=== PATIENT | male | born 1955 | race Caucasian/White ===

== ENCOUNTER 2023-04-29 07:49 | Outpatient (OUT) | payer OTHER, SELFPAY ==
[2023-04-29 07:43] LABS: Basophils Absolute Auto 0.1 10^3/uL (0.0-0.1); Basophils Percent Auto 0.7 % (0.2-2.0); Eosinophils Absolute Auto 0.2 10^3/uL (0.0-0.7); Eosinophils Percent Auto 2.7 % (0.9-7.0); Hematocrit 41.8 % (42.0-54.0); Hemoglobin 13.9 g/dL (14.0-18.0); Immature Granulocytes Abs Auto 0.02 10^3/uL (0.00-0.03); Immature Granulocytes Pct Auto 0.2 % (0.0-0.5); Lymphocytes Absolute Auto 2.5 10^3/uL (1.2-3.8); Lymphocytes Percent Auto 28.6 % (20.5-60.0); Mean Corpuscular HGB Conc 33.3 g/dL (29.9-35.2); Mean Corpuscular Hemoglobin 31.9 pg (25.9-34.0); Mean Corpuscular Volume 95.9 fL (80.0-94.0); Mean Platelet Volume 8.8 fL (9.5-13.5); Monocytes Absolute Auto 0.8 10^3/uL (0.3-0.8); Neutrophils Absolute Auto 5.1 10^3/uL (1.4-6.5); Neutrophils Percent Auto 58.8 % (43.0-75.0); Platelet Count 279 10^3/uL (150-450); Red Blood Count 4.36 10^6/uL (4.70-6.10); Red Cell Distribution Width 14.3 % (11.0-15.0); White Blood Count 8.7 10^3/uL (4.0-11.0)
[2023-04-29 08:40] LABS: Bilirubin Urine NEGATIVE (NEGATIVE); Blood Urine NEGATIVE (NEGATIVE); Clarity Urine CLEAR (CLEAR); Color Urine YELLOW (YELLOW); Glucose Urine UA NEGATIVE (NEGATIVE); Ketones Urine NEGATIVE (NEGATIVE); Leukocyte Esterase Urine NEGATIVE (NEGATIVE); Nitrite Urine NEGATIVE (NEGATIVE); Protein Urine NEGATIVE (NEG/TRACE); Specific Gravity Urine >=1.030 (1.005-1.025); Urobilinogen Urine 0.2 EU/dL (0.2-1.0)
[2023-04-29 08:47] LABS: WBC Urine NONE SEEN #/HPF (NONE SEEN)
[2023-04-29 08:48] LABS: Bacteria Urine NONE SEEN #/HPF (NONE SEEN); Mucus Urine NONE SEEN (NONE SEEN); RBC Urine NONE SEEN #/HPF (0-2); Squamous Epithelial Cell Urine RARE #/LPF (NONE/RARE)
[2023-04-29 09:35] LABS: Alanine Aminotransferase 26 U/L (16-63); Albumin Globulin Ratio 1.1; Albumin Level 3.9 g/dL (3.4-5.0); Alkaline Phosphatase 34 U/L (46-116); Anion Gap 10.2; Aspartate Amino Transferase 18 U/L (15-37); BUN Creatinine Ratio 17.5; Bilirubin Total 0.4 mg/dL (0.2-1.0); Calcium 9.4 mg/dL (8.5-10.1); Carbon Dioxide 29.6 mmol/L (21.0-32.0); Chloride 107 mmol/L (98-107); Chol HDL Ratio 3.4; Cholesterol 117 mg/dL (<=200); Estimated GFR (African America >60 (>=60); Estimated GFR (Non-African Ame >60 (>=60); Globulin 3.6 g/dL; Glucose 110 mg/dL (74-106); HDL Cholesterol 34 mg/dL (40-60); Potassium 4.8 mmol/L (3.5-5.1); Sodium 142 mmol/L (136-145); Total Protein 7.5 g/dL (6.4-8.2); Triglycerides 108 mg/dL (<=150); VLDL CHOLESTEROL 21.6 mg/dL
[2023-04-29 09:46] LABS: Estimated Average Glucose 120 mg/dL; Glycohemoglobin A1C 5.8 % (4.5-6.2)
[2023-04-29 10:09] LABS: Prostate Specific Antigen Scrn 0.47 ng/mL (<=4.00)
== END 2023-04-29 07:50 | disposition home or self-care (01) ==
PROVIDERS: PCP Nurse Practitioner; Visit Provider Nurse Practitioner
DX: E11.9 Type 2 diabetes mellitus without complications (principal); E78.2 Mixed hyperlipidemia; Z12.5 Encounter for screening for malignant neoplasm of prostate
CPT/HCPCS: 36415; 80053; 80061; 81001; 82043; 83036; 85025; G0103

== ENCOUNTER 2023-12-16 07:24 | Outpatient (OUT) | payer OTHER, SELFPAY ==
[2023-12-16 08:19] LABS: Anion Gap 14.6; BUN Creatinine Ratio 14.4; Carbon Dioxide 24.7 mmol/L (21.0-32.0); Chloride 105 mmol/L (98-107); Estimated GFR (African America >60 (>=60); Estimated GFR (Non-African Ame >60 (>=60); Glucose 111 mg/dL (74-106); Potassium 4.3 mmol/L (3.5-5.1); Sodium 140 mmol/L (136-145)
[2023-12-16 08:37] LABS: Estimated Average Glucose 117 mg/dL; Glycohemoglobin A1C 5.7 % (4.5-6.2)
== END 2023-12-16 07:25 | disposition home or self-care (01) ==
PROVIDERS: PCP Nurse Practitioner; Visit Provider Nurse Practitioner
DX: E11.9 Type 2 diabetes mellitus without complications (principal); I10 Essential (primary) hypertension
CPT/HCPCS: 36415; 80048; 83036

== ENCOUNTER 2023-12-23 07:33 | Outpatient (OUT) | payer OTHER, SELFPAY ==
--- NOTE | 2023-12-23 | CT_ITS ---
[address] [address] Patient Name: HAKEEM STARK MRN: [id number] date: 1955 Sex: M Assigned Patient Location: CT Current Patient Location: Accession/Order Number: [id number] Exam Date: 12/23/2023 07:58 Report Date: 12/25/2023 08:27 At the request of: DANN DAVISON Procedure: CT lung screening low-dose EXAMINATION: CT lung screening low-dose HISTORY: [employer] USER COMPARISON: No relevant comparison available. TECHNIQUE: Axial, Coronal, and Sagittal images were created without the administration of IV contrast material. Dose reduction techniques were achieved by using automated exposure control and/or adjustment of mA and/or kV according to patient size and/or use of iterative reconstruction technique. FINDINGS: LUNGS: Mild paraseptal emphysema with an upper lobe predominance. Scattered pulmonary nodules the largest nodule measures 1.5 x 0.6 cm in the right lower lobe marginating the major fissure best seen on axial image #86. PLEURA: No mass, effusion, or pneumothorax. VASCULATURE: No abnormality. AMADOR: No mass or pathologic adenopathy. MEDIASTINUM: No mass or pathologic adenopathy. CARDIAC: No enlargement, pericardial thickening, or significant calcification. CORONARY ARTERIES: Coronary calcifications are moderate. AORTA: No aortic aneurysm. Moderate calcific atherosclerosis CHEST WALL: No mass or axillary adenopathy BONES: No bone lesion or fracture. LIMITED ABDOMEN: No suspicious findings. Limited images of the upper abdomen. OTHER: Negative. CT/CT lung screening low-dose IMPRESSION: Scattered pulmonary nodules the largest measuring 1.5 x 0.6 cm in right lower lobe. PET scan follow-up is recommended to evaluate metabolic status LUNG SCREENING: Lung-RADS Category 4A- Suspicious. Findings for which additional diagnostic testing and/ or tissue sampling is recommended. 3 month LDCT; PET/CT may be used when there is a >= 8 mm solid component. Electronically authenticated by: YAIMA NOONAN Date: 12/25/2023 08:27
--- OUTSIDE RECORDS SUMMARY | 2023-12-23 07:36 | XMS_ITS | CCD ---
Author Name Unknown Address [address] [place] [address] Organization [facility] Care Team Providers Care Blending Kettle Tender Name Role Phone DANN DAVISON Primary Care Physician DANN DAVISON Referring UnavailMD Aravind Voss Attending Unavailable MD rAavind SU Admitting Unavailable MD Aravind SU Referring Unavailable MD Aravind SU Attending Unavailable MD Aravind SU Attending Unavailable AICHHOLZ, OIL FIELD LABORER DANN Admitting Unavailable AICHHOLZ, OIL FIELD LABORER DANN Attending Unavailable AICHHOLZ, OIL FIELD LABORER DANN Primary Care Unavailable AICHHOLZ, OIL FIELD LABORER DANN Consulting Unavailable AICHHOLZ, OIL FIELD LABORER DANN Admitting Unavailable AICHHOLZ, OIL FIELD LABORER DANN Attending Unavailable AICHHOLZ, OIL FIELD LABORER DANN Primary Care Unavailable AICHHOLZ, OIL FIELD LABORER DANN Consulting Unavailable PATRICK VAZQUEZ Consulting Unavailable AICHHOLZ, OIL FIELD LABORER DANN Admitting Unavailable AICHHOLZ, OIL FIELD LABORER DANN Attending Unavailable AICHHOLZ, OIL FIELD LABORER DANN Primary Care Unavailable SU ., DR BALDERRAMA Admitting Unavailable SU ., DR BALDERRAMA Attending Unavailable AICHHOLZ, OIL FIELD LABORER DANN Primary Care Unavailable SU ., DR BALDERRAMA Consulting Unavailable MARSHA SAAB Consulting Unavailable SU ., DR BALDERRAMA Admitting Unavailable SU ., DR BALDERRAMA Attending Unavailable AICHHOLZ, OIL FIELD LABORER DANN Primary Care Unavailable SU ., DR BALDERRAMA Consulting Unavailable STURGIS, DR YAIMA Hughes Consulting Unavailable LAURA NEGRON Consulting Unavailable SARTHAK KAUFMAN Admitting Unavailable SARTHAK KAUFMAN Attending Unavailable AICHHOLZ, OIL FIELD LABORER DANN Primary Care Unavailable SARTHAK KAUFMAN Consulting Unavailable OFELIA BOONE Consulting Unavailable CARIDAD MILLER Consulting Unavailable Medications Current Medications Medication Drug Class(es) Dates Sig (Normalized) Sig (Original) aspirin 81 mg oral tablet (1 source) Platelet Aggregation Inhibitor, Nonsteroidal Anti-inflammatory Drug Start: 01-17-2022 take 1 tablet by mouth once daily Aspirin 81 mg Tab-EC 81 mg, Oral, Daily, Refills(s) 0, Blood Thinner Start Date: 01/17/22 Status: Ordered atorvastatin 80 mg oral tablet (1 source) HMG-CoA Reductase Inhibitor Start: 01-17-2022 take 1 tablet by mouth once daily atorvastatin 80 mg Tab 80 mg, Oral, Daily, Refills(s) 0, High cholesterol Start Date: 01/17/22 Status: Ordered lisinopril 10 mg oral tablet (1 source) Angiotensin Converting Enzyme Inhibitor Start: 01-17-2022 take 1 tablet by mouth once daily lisinopril 10 mg Tab 10 mg, Oral, Daily, Refills(s) 0, High blood pressure Start Date: 01/17/22 Status: Ordered meloxicam 15 mg oral tablet (1 source) Nonsteroidal Anti-inflammatory Drug Start: 01-17-2022 meloxicam 15 mg oral tablet 200 mg, Oral, Daily, Refills(s) 0, Arthritis Start Date: 01/17/22 Status: Ordered 24 hr metFORMIN hydrochloride 750 mg extended release oral tablet (1 source) Biguanide Start: 01-17-2022 take 1 tablet by mouth twice daily metformin 750 mg ER Tab 750 mg, Oral, BID, Refills(s) 0, High blood sugar Start Date: 01/17/22 Status: Ordered tamsulosin hydrochloride 0.4 mg oral capsule (1 source) alpha-Adrenergic Antonia Start: 01-17-2022 take 1 capsule by mouth once daily tamsulosin 0.4 mg Cap 0.4 mg = 1 cap(s), Oral, Daily, # 30 cap(s), Refills(s) 8, Pharmacy: [id number], 180, cm, 01/17/22 9:28:00 EDT, Height/Length Dosing, 112, kg, 01/17/22 9:28:00 EDT, Weight Dosing Start Date: 01/17/22 Status: Ordered Problems Active Problems Problem Classification Problem Date Documented Date Episodic/Chronic Diabetes mellitus without complication (6 sources) Type 2 diabetes mellitus; 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: [Type 2 diabetes mellitus without complications] Onset: 11-05-2022 01-17-2022 Chronic Disorders of lipid metabolism (2 sources) Mixed hyperlipidemia; 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: [Mixed hyperlipidemia] Onset: 03-22-2022 01-17-2022 Chronic Essential hypertension (6 sources) Essential hypertension; 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: [Essential (primary) hypertension] Onset: 03-01-2022 01-17-2022 Chronic Osteoarthritis (1 source) Arthritis 02-24-2022 Chronic Other aftercare (1 source) residential (current) use of oral hypoglycemic drugs; 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: [SKILLED NURSING USE ORAL HYPOGLYCEMIC DX] Onset: 12-06-2022 Episodic Other and unspecified benign neoplasm (1 source) Personal history of colonic polyps; 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: [PERSONAL HISTORY OF COLONIC POLYPS] Onset: 12-06-2022 Episodic Other screening for suspected conditions (not mental disorders or infectious disease) (5 sources) Encounter for screening for malignant neoplasm of colon; 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: [Encounter for screening for malignant neoplasm of prostate] Onset: 03-22-2022 Episodic Spondylosis; intervertebral disc disorders; other back problems (1 source) Degeneration of lumbar intervertebral disc 02-24-2022 Chronic Substance-related disorders (2 sources) Smoker; 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: [Nicotine dependence, cigarettes, uncomplicated] Onset: 12-06-2022 01-17-2022 Chronic Comment on above: Added secondary to d ocumentation in Social History. Past or Other Problems Problem Classification Problem Date Documented Da te Episodic/Chronic Calculus of urinary tract (6 sources) Kidney stone; 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: [Calculus of kidney] Onset: 02-24-2022 02-24-2022 Episodic Other aftercare (1 source) emt intermediate (current) use of anticoagulants; 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: [MOID [employer] CURRNT USE ANTICOAGULANTS] Onset: 03-01-2022 Episodic Residual codes; unclassified (1 source) Procedure and treatment not carried out for other reasons; 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: [PROC AND TX NOT CARRIED OUT OTH REASONS] Onset: 03-01-2022 Episodic Results Test Name Value Interpretation Reference Range Facility CT LUNG CANCER SCREENINGon 0 11-05-[address] Low Dose Lung Cancer Screening History: Screening for lung cancer, smoking. Current smoker Comparison: None Technique: Helical acquisition Low dose CT chest. Images reviewed in lung, soft tissue and bone windows. Findings: [All follow up of nodules are based on ACR guidelines for lung cancer screening and measurements of each nodule size must be the mean of the longest 2 axial plane perpendiculars] Nodules: Mild centrilobular and paraseptal emphysema. Minimal, patchy nodular groundglass density in the posterior right upper lobe, is likely infectious/inflammat ory. Intrapulmonary lymph node in the right major fissure on series 4 image 77. No suspicious nodules by size criteria. Normal size thoracic aorta, pulmonary artery, and heart. There is moderate coronary calcification. No suspicious lymphadenopathy. Upper abdomen: Limited Bones: No acute or suspicious lesion Impression: 1. ACR Assessment Category: Lung-RADS Category 2. Benign appearance or behavior. . Recommendation: Lung-RADS Category 2. Benign appearance or behavior. Recommendation: continue annual screening. . 2. Significant Incidental Finding(s): Category S: Yes. a. coronary artery calcium moderate 3. Prior history of Lung cancer: Category C: no. 4. Avoidance of tobacco smoke is strongly advised. Please consider referral for smoking cessation to [facility] Medication Therapy Management (MTM) if clinically appropriate. Download the LungRADS Assessment Categories table at this site: http://www.acr.org/Q uality-Safety/Resour mony/LungRADS Regarding coronary artery calcium, there is a growing consensus that reports for nongated low dose chest CT should include assessment of coronary artery calcium. A simple visual assessment, mild, moderate, or heavy coronary artery calcium is comparable to a Agatston scoring and strongly associated with outcomes ( related to coronary artery disease and all cause mortality). Mild is defined as isolated flecks in the coronary distribution (Agatston score <100). Heavy implies continuous or lengthy coronary artery calcium (Agatston score >1000). Moderate is for patients falling between these two extremes (Agatston score 101-1000). https://pubs.rsna.or g/doi/abs/10.1148/ra diol.61193331 Electronically authenticated by: PATRICK VAZQUEZ Date: 2022-11-05 20:06 Normal [facility] GLYCOHEMOGLOBIN A1Con 2022 ADA RECOMMENDATION SEE BELOW Normal [facility] Comment on above: Result Comment: ADA RECOMMENDED LIMIT 4.0 - 6.0 ADA THERAPEUTIC TARGET < 7.0 ACTION SUGGESTED > 7.0 Performed By: #### A 1C #### [facility] [address] [address] [address] Gigi To Glucose [Mass/Vol] 117 mg/dL Normal [facility] Comment on above: Performed By: #### A 1C #### [facility] [address] [place] [address] Dr. Gigi To HbA1c (Bld) [Mass fraction] 5.7 % Normal 4.5-6.2 [facility] Comment on above: Performed By: #### A 1C #### [facility] [address] [place] [address] Dr. Gigi To PROF CHEM 8 (BAS METB)on Anion gap [Moles/Vol] 16.1 mmol/L Normal [facility] Comment on above: Performed By: #### B MP #### [facility] [address] [place] [address] Dr. Gigi To Calcium [Mass/Vol] 9.4 mg/dL Normal 8.5-10.1 [facility] Comment on above: Performed By: #### B MP #### [facility] [address] [place] [address] Dr. Gigi To Chloride [Moles/Vol] 105 mmol/L Normal 98-107 [facility] Comment on above: Performed By: #### B MP #### [facility] [address] [place] [address] Dr. Gigi To CO2 [Moles/Vol] 25.8 mmol/L Normal 21.0-32.0 [facility] Comment on above: Performed By: #### B MP #### [facility] [address] [place] [address] Dr. Gigi To Creatinine [Mass/Vol] 1.02 mg/dL Normal 0.70-1.[address] [facility] Comment on above: Performed By: #### B MP #### [facility] [address] [place] [address] Dr. Gigi To EGFR-AF TAIWANESE >60 Normal >=[address] [facility] Comment on above: Performed By: #### B MP #### [facility] [address] [place] [address] Dr. Gigi To EGFR-NON AF TAIWANESE >60 Normal >=60 [facility] Comment on above: Performed By: #### B MP #### [facility] [address] [address] [address] Gigi To Glucose [Mass/Vol] 109 mg/dL Critically high 74-106 [facility] Comment on above: Performed By: #### B MP #### [facility] [address] [address] [address] Gigi To Potassium [Moles/Vol] 4.9 mmol/L Normal 3.5-5.1 [facility] Comment on above: Performed By: #### B MP #### [facility] [address] [address] [address] Gigi To Sodium [Moles/Vol] 142 mmol/L Normal 136-145 [facility] Comment on above: Performed By: #### B MP #### [facility] [address] [address] [address] Gigi To Urea nitrogen [Mass/Vol] 25.0 mg/dL Critically high 7.0-18.0 [facility] Comment on above: Performed By: #### B MP #### [facility] [address] [address] [address] Gigi To Urea nitrogen/Creatinine [Mass ratio] 24.5 mg/mg Normal [facility] Comment on above: Performed By: #### B MP #### [facility] [address] [address] [address] Gigi To [facility] August 08, 2022 HAKEEM STARK [address] [place] [address] Dear Mr. Hakeem Stark, Our records show it is time for you to schedule a follow up appointment with Dr. Su due to your history of Kidney stones. I have enclosed an order for a KUB x-ray to be done prior to the appointment. Please call our office so we can get you scheduled for an appointment, and so we can continue to provide you with quality care. Thank you for your consideration in this matter. Sincerely, Aravind Su M.D., F.A.C.S. [facility] [address] [place] [address] [id number] Normal [facility] H&P Updateon 05-23-2022 H&P Update [id number] 6#[id number]:127 Normal [facility] Pre-Certification Formon Pre-Certification Form [id number] #1.00CD:127 Normal [facility] CBC AUTO DIFFon 03-19-2022 BASO # 0.1 103/ul Normal 0.0-0.1 [facility] Comment on above: Performed By: #### C BC #### [facility] [address] [place] [address] Dr. Gigi To Basophils/100 WBC (Bld) 0.5 % Normal 0.2-2.0 [facility] Comment on above: Performed By: #### C BC #### [facility] [address] [place] [address] Dr. Gigi To EO # 0.3 103/ul Normal 0.0-0.7 [facility] Comment on above: Performed By: #### C BC #### [facility] [address] [place] [address] Dr. Gigi To Eosinophils/100 WBC (Bld) 2.7 % Normal 0.9-7.0 [facility] Comment on above: Performed By: #### C BC #### [facility] [address] [place] [address] Dr. Gigi To Erythrocyte distribution width (RBC) [Ratio] 14.0 % Normal 11.0-15.0 [facility] Comment on above: Performed By: #### C BC #### [facility] [address] [place] [address] Dr. Gigi To Hematocrit (Bld) [Volume fraction] 43.7 % Normal 42.0-54.0 [facility] Comment on above: Performed By: #### C BC #### [facility] [address] [place] [address] Dr. Gigi To Hemoglobin (Bld) [Mass/Vol] 14.4 g/dL Normal 14.0-18.[address] [facility] Comment on above: Performed By: #### C BC #### [facility] [address] [place] [address] Dr. Gigi To IG # 0.03 10e3/ul Normal 0.00-0.[address] [facility] Comment on above: Performed By: #### C BC #### [facility] [address] [place] [address] Dr. Gigi To IG % 0.3 % Normal 0.0-0.5 [facility] Comment on above: Performed By: #### C BC #### [facility] [address] [place] [address] Dr. Gigi To LYMPH # 2.9 103/ul Normal 1.2-3.[address] [facility] Comment on above: Performed By: #### C BC #### [facility] [address] [place] [address] Dr. Gigi To Lymphocytes/100 WBC (Bld) 29.4 % Normal 20.5-60.[address] [facility] Comment on above: Performed By: #### C BC #### [facility] [address] [place] [address] Dr. Gigi To MANUAL DIFF REQ NO Normal [facility] Comment on above: Performed By: #### C BC #### [facility] [address] [place] [address] Dr. Gigi To MCH (RBC) [Entitic mass] 32.2 pg Normal 25.9-34.[address] [facility] Comment on above: Performed By: #### C BC #### [facility] [address] [place] [address] Dr. Gigi To MCHC (RBC) [Mass/Vol] 33.0 g/dL Normal 29.9-35.[address] [facility] Comment on above: Performed By: #### C BC #### [facility] [address] [place] [address] Dr. Gigi To MCV (RBC) [Entitic vol] 97.8 fL Critically high 80.0-94.0 [facility] Comment on above: Performed By: #### C BC #### [facility] [address] [address] [address] Gigi To MONO # 0.8 103/ul Normal 0.3-0.8 [facility] Comment on above: Performed By: #### C BC #### [facility] [address] [address] [address] Gigi To Monocytes/100 WBC (Bld) 8.6 % Normal 1.7-12.0 [facility] Comment on above: Performed By: #### C BC #### [facility] [address] [place] [address] Dr. Gigi To NEUT # 5.7 103/ul Normal 1.4-6.5 [facility] Comment on above: Performed By: #### C BC #### [facility] [address] [place] [address] Dr. Gigi To Neutrophils/100 WBC (Bld) 58.5 % Normal 43.0-75.0 [facility] Comment on above: Performed By: #### C BC #### [facility] [address] [place] [address] Dr. Gigi To Platelet mean volume (Bld) [Entitic vol] 8.7 fL Critically low 9.5-13.[address] [facility] Comment on above: Performed By: #### C BC #### [facility] [address] [place] [address] Dr. Gigi To PLT 280 103/ul Normal 150-[address] [facility] Comment on above: Performed By: #### C BC #### [facility] [address] [place], [place] [id number] Dr. Gigi To RBC 4.47 106/ul Critically low 4.70-6.10 [facility] Comment on above: Performed By: #### C BC #### [facility] [address] [address] [address] Gigi To WBC 9.8 103/ul Normal 4.0-11.0 [facility] Comment on above: Performed By: #### C BC #### [facility] [address] [address] [address] Gigi To GLYCOHEMOGLOBIN A1Con 2021 ADA RECOMMENDATION SEE BELOW Normal [facility] Comment on above: Result Comment: ADA RECOMMENDED LIMIT 4.0 - 6.0 ADA THERAPEUTIC TARGET < 7.0 ACTION SUGGESTED > 7.0 Performed By: #### A 1C #### [facility] [address] [address] [address] Gigi To Glucose [Mass/Vol] 126 mg/dL Normal [facility] Comment on above: Performed By: #### A 1C #### [facility] [address] [place] [address] Dr. Gigi To HbA1c (Bld) [Mass fraction] 6.0 % Normal 4.5-6.2 [facility] Comment on above: Performed By: #### A 1C #### [facility] [address] [place] [address] Dr. Gigi To LIPID PROFILEon 03-19-2022 CHOL-HDL RATIO NORM SEE BELOW Normal [facility] Comment on above: Result Comment: 3.3 - 4.4 LOW RISK 4.4 - 7.1 AVERAGE RISK 7.1 - 11.0 MODERATE RISK >11.0 HIGH RISK Performed By: #### L IPID, CMP #### [facility] [address] [place] [address] Dr. Gigi To Cholesterol [Mass/Vol] 105 mg/dL Normal <=200 [facility] Comment on above: Performed By: #### L IPID, CMP #### [facility] [address] [address] [address] Gigi To Cholesterol in HDL [Mass/Vol] 29 mg/dL Critically low 40-60 [facility] Comment on above: Performed By: #### L IPID, CMP #### [facility] [address] [place] [address] Dr. Gigi To Cholesterol in LDL [Mass/Vol] 26.8 mg/dL Normal [facility] Comment on above: Performed By: #### L IPID, CMP #### [facility] [address] [address] [address] Gigi To Cholesterol.total/Ch olesterol in HDL [Mass ratio] 3.6 {ratio} Normal [facility] Comment on above: Performed By: #### L IPID, CMP #### [facility] [address] [address] [address] Gigi To HDL NORMAL > or = 60 mg/dl - LOW CARDIOVASCULAR RISK <40 mg/dl - HIGH CARDIOVASCULAR RISK Normal [facility] Comment on above: Performed By: #### L IPID, CMP #### [facility] [address] [address] [address] Gigi To LDL CALC NORMAL SEE BELOW Normal [facility] Comment on above: Result Comment: <100 mg/dl OPTIMAL 100 - 129 mg/dl NEAR OR ABOVE OPTIMAL 130 - 159 mg/dl BORDERLINE HIGH 160 - 189 mg/dl HIGH >190 mg/dl VERY HIGH Performed By: #### L IPID, CMP #### [facility] [address] [place] [address] Dr. Gigi To Triglyceride [Mass/Vol] 246 mg/dL Critically high <=150 [facility] Comment on above: Performed By: #### L IPID, CMP #### [facility] [address] [place] [address] Dr. Gigi To VLDL CALC 49.2 mg/dL Normal [facility] Comment on above: Performed By: #### L IPID, CMP #### [facility] [address] [address] [address] Gigi To MICROALBUMIN, RAND URon 06- mALB 1.5 mg/L Normal <=30.0 [facility] Comment on above: Performed By: #### M ALBR #### [facility] [address] [place] [address] Dr. Gigi To PROF 14(COMP METB)on 022 Albumin [Mass/Vol] 3.9 g/dL Normal 3.4-5.0 [facility] Comment on above: Performed By: #### L IPID, CMP #### [facility] [address] [address] [address] Gigi To Albumin/Globulin [Mass ratio] 1.1 {ratio} Normal [facility] Comment on above: Performed By: #### L IPID, CMP #### [facility] [address] [address] [address] Gigi To ALP [Catalytic activity/Vol] 42 U/L Critically low 46-116 [facility] Comment on above: Performed By: #### L IPID, CMP #### [facility] [address] [address] [address] Gigi To ALT [Catalytic activity/Vol] 30 U/L Normal 16-63 [facility] Comment on above: Performed By: #### L IPID, CMP #### [facility] [address] [address] [address] Gigi To Anion gap [Moles/Vol] 14.5 mmol/L Normal [facility] Comment on above: Performed By: #### L IPID, CMP #### [facility] [address] [address] [address] Gigi To AST [Catalytic activity/Vol] 17 U/L Normal 15-37 [facility] Comment on above: Performed By: #### L IPID, CMP #### [facility] [address] [address] [address] Gigi To Bilirubin [Mass/Vol] 0.4 mg/dL Normal 0.2-1.0 [facility] Comment on above: Performed By: #### L IPID, CMP #### [facility] [address] [address] [address] Gigi To Calcium [Mass/Vol] 9.4 mg/dL Normal 8.5-10.1 [facility] Comment on above: Performed By: #### L IPID, CMP #### [facility] [address] [address] [address] Gigi To Chloride [Moles/Vol] 105 mmol/L Normal 98-107 [facility] Comment on above: Performed By: #### L IPID, CMP #### [facility] [address] [address] [address] Gigi To CO2 [Moles/Vol] 27.7 mmol/L Normal 21.0-32.0 [facility] Comment on above: Performed By: #### L IPID, CMP #### [facility] [address] [address] [address] Gigi To Creatinine [Mass/Vol] 1.00 mg/dL Normal 0.70-1.30 [facility] Comment on above: Performed By: #### L IPID, CMP #### [facility] [address] [address] [address] Gigi To EGFR-AF TAIWANESE >60 Normal >=60 [facility] Comment on above: Performed By: #### L IPID, CMP #### [facility] [address] [address] [address] Gigi To EGFR-NON AF TAIWANESE >60 Normal >=60 [facility] Comment on above: Performed By: #### L IPID, CMP #### [facility] [address] [address] [address] Gigi To Globulin (S) [Mass/Vol] 3.5 g/dL Normal [facility] Comment on above: Performed By: #### L IPID, CMP #### [facility] [address] [address] [address] Gigi To Glucose [Mass/Vol] 108 mg/dL Critically high 74-106 [facility] Comment on above: Performed By: #### L IPID, CMP #### [facility] [address] [address] [address] Gigi To Potassium [Moles/Vol] 4.2 mmol/L Normal 3.5-5.1 [facility] Comment on above: Performed By: #### L IPID, CMP #### [facility] [address] [address] [address] Gigi To Protein [Mass/Vol] 7.4 g/dL Normal 6.4-8.2 [facility] Comment on above: Performed By: #### L IPID, CMP #### [facility] [address] [address] [address] Gigi To Sodium [Moles/Vol] 143 mmol/L Normal 136-145 [facility] [facility] Comment on above: Performed By: #### L IPID, CMP #### [facility] [address] [address] [address] Gigi To Urea nitrogen [Mass/Vol] 21.0 mg/dL Critically high 7.0-18.0 [facility] Comment on above: Performed By: #### L IPID, CMP #### [facility] [address] [address] [address] Gigi To Urea nitrogen/Creatinine [Mass ratio] 21.0 mg/mg Normal [facility] Comment on above: Performed By: #### L IPID, CMP #### [facility] [address] [address] [address] Gigi To IntraOperative Documentson 0 03-03-2022 IntraOperative Documents [id number]# 1.00CD:127 Normal [facility] Postoperative Documentson Postoperative Documents [id number]# 1.00CD:127 Normal [facility] Coding Summary.on 03-02-2022 Coding Summary. CD:[id number] Gh0bWw+PGhlYWQ+PE1FV SSdT43cuTRpjA8KS5iNQ I9KOMETOCDAMG0XPN1nn DO5IJqyU1SokkSz VrawfGGiKK79UPu8OTF6 jCtwGAxtiN6imUBvI3y2 NePiPP44kI97TJyiXJVh PvQ4IhHchirgiZHr E4agDiCqgBDyBwk+PHRh YmxlIHdpZHRoPScxMDAl QuYwvUylXT5yHy6nAIJr LWNvbGxhcHNlOiBj q2mqYVKdVPnzGC5tlHqp G2WdlEO4SJTdw8v7Hc55 dHI+YZEmCOU1cIflBUvp a795IsZcd9tbWWX2 iUFuXUkdNEV8S74ic1C5 ZQNbOEYrMQH1pBW6dJ5d cLkegspaK6BjeFLjObS3 AYI8dBNrfQ6fxKki giitxV5mDqr+Y31YSM2U MBNDQR6CPba2F0KoCcsa dHI+JA40GLOvYB86qGHh qLNie5fujFc5AiXs SAMvKDN2mXvxAQwof4Ey WUWaD60zpPQvw5A0FSRd cAtjiRCzRyLmsTV6rJ9r BZevqwcpj9ipipca Sirna4cqfo09cJ30I36z DBrpUFXfFMS6AYInBYTy mYiach3suJ4qUk3+IDxj x1qdn6ljkFv2TbZq SDXrwnDocCrhJTV0h5Er Cw22I9AdkPetr9GzPsm1 kt29mKFtw9J8qNI6HSoz AVZgaX8xFKupYsZ1 WVWgVnXoqZ94mGOrJGba Sk8csOihsUtwAZ1fXNOc lwdfDTYztB8pQGWcpVJg fOyeXN0rYPZptjsw e156DoThBFL5AKFihOKu O8YsuM9qCxLjDKTkQMFb O1FgyHTvOUvqU418WFqv BaV9ZTWwuxMoU7Ow WRIpuGeiCcA4v1F5Xe3B w1CjyfymQHU8BVhqVSE8 NfJ7RwSdTnF0K7BfEcj5 ENMwoBavPA1yO0Xi JTKnovqskwckdCF7PSDq JNRdnM72vFRrGWtwPj9a d0I4y769HEKoDUCczQ03 Gr6vkLqsKHCtfSGU nV2mwvfvd1lnekutImTe BJDkRXn5CZi8XELgzRra DoLuDCW9ApV7BDN6xYVc vB0bsVfqyruudY4o Oyc+E94enB8qAOT7JHF9 nivyWFAdszExWG26RB83 T5PhCyrjgWXyySQ+PGRp wmFurPbsZH0oQwKg b4fvm9HaWKvwM7IpEJBn RJdpOsm2IJZiVQI3iLH2 zI8uWLXxWOpzy4Q5aDE8 I9WfxxVbyq0wi2tr DVZoSYmmP94ljKDvs3K6 PWLhjIE7RTZmsRswDfIc lW02Yjw+CVKfaDraj9Mm Afgdp9mvo0dlbWe3 IjMwJSIgdmFsaWduPSJ0 k3SqTa56J74aLXfyKFZi UWWdARPmROBfvHuygb0y pF1zUm1+PGNvbCB3 pFK3qH0mKTAnAkH8RTel O154IyEjdGVdIunuv5yq i1remGx2WqMfHFAswmIl dCcjORN9c8DcFp34 C88pSEjoUCDiRLWhAQUv NEOoiTwtvi7tdX5vVj7+ EZ1hq6spdt47wZ67zZV+ JHEzVYD1oHakBIxc AZTcaT9hHIgpQoQ5RIDh YsRdzD48eSBkWSytXy9m qFlluNjvVN6aGGIrfhdw j128XfAvi8pyYSZx qFHnUQmqMGP4F46uq9Q1 ZEIdZGOxYUI3zUG2kC0j bGlnbjogbGVmdDsgdmVy rSltOPanFKuoD657 IHRvcDsnPlBhdGllbnQg WhWiJPa2F6NiVwn4UDSc kOpvQU7sfUFcZLqnYc0q aRyyaAmpOR7qXJLq fqrnw134WxBhb4eoPHUj fHArITnsQQE7B29ss2L9 ZEVlKJEiHVD0sTB6eR6y bGlnbjogbGVmdDsg zaNqzZuySMebNYeiP521 IHRvcDsnPkJpcnRoIERh hXC1NP91MO69tEQfl7P3 oTO0T7PhSTLtnyzw ywhbiGH6OLZwOFMuvM33 Qp5ayGblBl6yJKHgGZR3 AOHwuWHyR1KbyM1iRvUd JCJtSFYkF5ZyqPZq KRuaQ831GVzkQoG9KNPw deZvR3KwUGLwxCecOzP6 k2T0Qa8CY0A8CH98GA54 aOFkj3X8aCV7E8Qm MLNhigvzbriqxPM2EXLq VQCvoI90Do8xxQmgKt1u GPYvPPS9HKJrdZUhE2Pe xH7tOyYrSWUxSHTw A6OumWNuISudF041MEso RnF9DTCnumOkG9MpWRWt aYbiWcN5r1U2As5FNOg2 CL71JV93nWYwf8F8 jKS3G3VgBGXnmjywqupk iKL7QEYrRHUfqY88Ko3h cMafBv2uORIcIFN3JWTt lEYfB8RcdI8nTtRx BKMlSUMvM0QxkBRwQIom W284IAxaUsK2GAInixXq Z2HxYKTwaMooSbX8d1T5 By0WIHOfVC51GKZ9 jLJ3TR50CM63E5EbHvsm dGFibGU+PHRhYmxlIHdp ZHRoPScxMDAlJyBzdHls KF2mHr4gULEeUBIm oOfmkDYaZqSpe0ffFSQc NHriWG3etXtfM9VjfZN7 LYFkn3k2Fr26K83rA0Ms dXA+VQPpbDO0fAE9 wY1hLoKoShG9DOdxL161 XfActHCmXfeki5dvv3aw zSd2WuE5NJUhvvExdJfu CAI5j1XlLt19W25o IHdpZHRoPSIxNSUiIHZh vGrffd4piP2vYo0+PGNv dFM0jHV9rD8fCqNqWcB3 ABcjA142MgHvfYWo Fqmut3act3fooKy4DeEc GVQwdcAcwMlqMTG9y0Jx Kj44W0RrlLhth1NnMru8 aa75hIVja0V7gUR4 A2WgWYMeqnrzzKFojGor CI3xLCPaahhpQHFqrX0z QTPqU8q4YoVmDnQ0GSfm R9QjqvJ2TQGnhBRs LXrfDSA5B70xa2J9FCQx GLIqJHD9jKX5wX2xkWbm bjogbGVmdDsgdmVydGlj ZFxzEFokZ970YQKm iRqkHNIjcU6ySHGpwVXf rScfAO4uKZLnyndtRerU LCXHAH7zCHgFUR5mCJes dGQ+VSNcIMK5hVga JZijTYYaiW3pYRPmT4r0 HeRzUbG0MFpnW8UiULWv lyzhQz04hD1pLeGyFmY9 HUvdQ4BwohA9IIJg kCWoNJvwNEX5D85zk0Y0 ZZWeFXRzSUK7bHD3cT9d bGlnbjogbGVmdDsgdmVy mFssXIuyYPxhI253 ICFjhGvgNwL8BvZnTjV2 OOE4A6LyLpx5COSwvVtv QD5fyCMmTAxhSd5zwWth mQtiQX1oIWCffyzf AEJzcE4uGSKksFAidCbo XM5fTKZystxmi053YkMo ASJ7LPIttPXvX6JlxM1g TpLyYIMkYOXvI7My tIKlKSbbX485LPfyEiY5 SEOzxnLxY3OoZGCcfJta LtI7a1N9Bi50GOZBAJIm czwvdGQ+PHRkIHN0 mCijCDkpIRMauZ0qKGCv V3c4XeCaUtZ3BMvnM5Eo XXVhoeggVh19zD9jOvCr LmF6QIxvD8IvieJ9 KOQjgNQiHQrpOJB5L37x w8D2JQJyAVRcVGX3eBF9 xN3hpJipntcxzWRpwNsk dmVydGljYWwtYWxp R714UICoyMrtYh6deKL1 T9CaQbs3JOUqxEvlMF4t vAPsJPbwMb0utYbcsJlx ZU0gBKAbiwupKUTp uO7oDJNsoDPinGqvRD6p HCKsqckrg849QwKdIRD5 UNCarXUeU0HbjM0nYoGj FUDkLUWvM5QrqZIh UBvbQ746AZylJfT1YFHj tcOwT8WdTCNdtOkpMfX8 o4H7Pc7ClEM0zKK0y1U6 I9AuhQOrUOD8QTR7 obpapuv0L7BpVhqtxQX+ AQ87MCIiOB13wJWxeSWf c6hwrLi7TnGtFBAkSSO7 gDqsTXqta9LfOCXg Q53zxTHzu8Q3KKRxqCko tVWfMwWrwNQ3wU9nMVaw qcyfx7eqetyhMdvdi5wu bp67fX96I94lDFwq ZHRoPSIzMCUiIHZhbGln yg6otU5eBr5+PGNvbCB3 yXQ1xX5qZhYjQyD5IZwj C674FkGchCSzXzzm y5esw8pdyEa5SoQcNSZi tkOxnUqzJQC5n5HjVf29 F29wOEalJPHqHPEjRJXn RZGhsYmqrj7guI6f Ii8+MS7we5dpzp74tD18 dHI+ZYEdBBR3sXdfOFcs DQDjwQ1uKWfqDlU5BOBi JoBjsP62rCUeBHsu Em7tlTkoxEzoMI2dCAYl jqmwh942InTpv4ovFJRi gSZaAMxeLCM6J29hy8E5 ZSPoUREgAMP0xYE3 oB9maXmzivdzcIAdnOij ysShvWrkTYlyNIlrT670 WPChsVbrQjMffQEaB5bp yeLEXE7rMcqddVC+ IFNaTLZ8lVzvCOsaAGYx fR3jPUWdV4u4YhSbBdI9 DZotN9ZzhrA7DAVmbIOr ZUOfaQRAmD6uxwtq u3ffjowgSaXxANCeWLf9 NUd0JSQavIzvBeDkVPQ8 QiP6BPT1aLEqiM5xzJej fcxqeW7kKra+RklO OjwvdGQ+BQCaKZW8aCzn FXmiDCMkgV0aNZTaE8a5 AbWgCrR6JFzgA0RlbnW6 IGJvbGQgMTBwdCBU mS7jmpwkt0byvhgrDwLi IXAdHTq4HHm6IRJxzQod AjVoNWK5FgJ1TYS8dPDl fA0pbNbazhfszU0h Oyc+TVJOOjwvdGQ+PHRk IWN5fIogLKeaVLDtlV6w QSDqC4r7BsDaAtE9YLyu G7WlzhH2UHKvoTZo AEMoiDQNtP2jemayo9ct igibEjUvGVRiBIm3HGc3 KGWrlHxeChBzEKW9UbG9 ORD4dHWonX7rgKfj eixkwS2yEdz+ZZV4PFV3 NO16JJ15T3UcXmqruLOh bGU+PHRhYmxlIHdpZHRo PScxMDAlJyBzdHls ZT0n (more content not included)... Normal [facility] Main OR Intraoperative Recor don 03-01-2022 Main OR Intraoperative Record IntraOp Document Type FT Summary Primary Physician: Aravind SU MD Finalized Date/Time: 03/01/22 13:45:03 Pt. Name: HAKEEM STARK D.O.B./Sex: 1955 Male Med Rec #: [id number] Physician: ЮЛИЯ MORALES, Aravind Edwards Financial #: [id number] Pt. Type: A Room/Bed: Admit/Disch: 02/24/22 10:13:52 - 02/24/22 17:35:00 Institution: Case Times FT Entry 1 Patient Times In Room 02/24/22 14:58:00 Out Room 02/24/22 15:47:00 Procedure Times Start 02/24/22 15:14:00 Stop 02/24/22 15:43:00 Anesthesia Times Start 02/24/22 14:58:00 Stop 02/24/22 15:47:00 Last Modified By: Josias TOLBERT, Kenyetta Ferguson 02/24/22 15:51:24 General Comments: 03/01/22 chart opened for charge review per Tammy Ruth RN. [place] Case Attendance FT Entry 1 Entry 2 Entry 3 Case Attendee Stepan CAVANAUGH, Fabio SU MD, Aravind Ferrara RN, Kenyetta Ferguson Role Performed SUGAR PRESSER Surgeon - Primary Simplex Operator - Primary Time In 02/24/22 14:58:00 02/24/22 14:58:00 02/24/22 14:58:00 Time Out 02/24/22 15:47:00 02/24/22 15:47:00 02/24/22 15:47:00 Procedure EXTRACORPOREAL SHOCK EXTRACORPOREAL SHOCK EXTRACORPOREAL SHOCK WAVE LITHOTRIPSY(Left) WAVE LITHOTRIPSY(Left) WAVE LITHOTRIPSY(Left) Comments supervised by all Last Modified By: Josias TOLBERT, Kenyetta Ferrara RN, Kenyetta Ferrara RN, Kenyetta Ferguson 02/24/22 15:51:26 02/24/22 15:51:26 02/24/22 15:51:26 General Comments: jeff duenas eswl rep Perioperative Protocols FT Pre-Care Text: Implements protective measures prior to operative or invasive procedure, confirms identity before the operative or invasive procedure, verifies operative procedure, surgical site, and laterality Entry 1 Procedure(s) EXTRACORPOREAL SHOCK Patient Identity Birthday, ID Band WAVE LITHOTRIPSY(Left) Verified (select at Check, Patient least 2): Participation Consents / H and P Anesthesia Consent, Operative Site Present Verified HandP, Surgery/Procedure Marking Verified Consent Surgical Site Yes Laterality Verified Yes Verified Procedure Verified Yes Correct Patient Yes Position Verified Availability Equipment, X-ray Prep Dry n/a Verified (If Applicable) PreOp Antibiotic Yes Time Out Fabio Ying CRNA, Given Participants Aravind SU MD, Zachel RN, Brenda X Time Out Complete 02/24/22 15:09:00 Outcomes Met? Yes Last Modified By: Kenyetta Ferrara RN 02/24/22 15:12:40 Post-Care Text: The patient is free from signs and symptoms of injury caused by extraneous objects General Comments: marshal cosma Allergy Information FT Pre-Care Text: Verifies allergies Entry 1 Allergies Reviewed? Yes Allergies Reviewed Self/Patient With Outcomes Met? Yes Last Modified By: Kenyetta Ferrara RN 02/24/22 15:13:27 Post-Care Text: The patient received appropriate medication(s) safely administered during the perioperative period Surgical Procedures FT Entry 1 Procedure Description Procedure EXTRACORPOREAL SHOCK Modifiers Left WAVE LITHOTRIPSY Surgeon Description LEFT ESWL Primary Procedure Yes Primary Surgeon Aravind SU MD Start 02/24/22 15:14:00 Stop 02/24/22 15:43:00 Anesthesia Type General Surgical Service Urology Wound Class 1 - Clean Last Modified By: Kenyetta Ferrara RN 02/24/22 15:51:27 General Case Data FT Pre-Care Text: Classifies surgical wound, implements aseptic technique, initiates traffic control Entry 1 Case Information OR OR 5 FT Case Level Level 2 Wound Class 1 - Clean Specialty Urology ASA Class 3 Preop Diagnosis KIDNEY STONE Postop Same As Preop Yes Postop Diagnosis KIDNEY STONE Outcomes Met? Yes Last Modified By: Kenyetta Ferrara RN 02/24/22 15:13:38 Post-Care Text: The patient is free from signs and symptoms of infection Skin Assessment (Pre Procedure) FT Pre-Care Text: Implements protective measures to prevent skin/ tissue injury due to thermal or mechanical sources Evaluates for signs and symptoms of physical injury to skin and tissue Entry 1 Skin Integrity Intact, Other/See Skin Abnormality Yes Comments Abnormality Location scab on nose Outcomes Met? Yes Last Modified By: Kenyetta Ferrara RN 02/24/22 15:13:53 Post-Care Text: The patient is free from signs and symptoms of injury caused by extraneous objects Patient Positioning FT Pre-Care Text: Identifies physical alterations that require additional precautions for procedure-specific positioning, verifies presence of prosthetics or corrective devices, positions the patient, evaluates the patient for signs and symptoms of injury as a result of positioning Entry 1 Procedure EXTRACORPOREAL SHOCK Additional position approved by WAVE LITHOTRIPSY(Left) Information surgeon Body Position Supine Feet Uncrossed? Yes Left Arm Position Extended on Padded Arm Right Arm Position Resting at Side Board Left Leg Position Extended Right Leg Position Extended Positioning Device Safety Strap, Pillow Press Points Checked Yes Under Head Large (more content not included)... [facility] Lab Reportson 02-28-2022 Lab Reports [id number] #1.00CD:127 [facility] RAD - MISCon 02-28-2022 RAD - MISC [id number] #1.00CD:127 [facility] Consent for Anesthesiaon Consent for Anesthesia [id number]#1.00CD:127 [facility] Discharge Instructionson Discharge Instructions [id number] 2#1.00CD:127 [facility] IntraOperative Documentson 0 02-25-2022 IntraOperative Documents [id number] #1.00CD:127 [facility] IntraOperative Documents [id number] 5#1.00CD:127 [facility] Outside Recordson 02-25-2022 Outside Records [id number] 5#1.00CD:127 [facility] Preoperative Documentson Preoperative Documents [id number] 9#1.00CD:127 [facility] Preoperative Documents [id number] 8#1.00CD:127 [facility] Prescriptions/Work Noteson 0 02-25-2022 Prescriptions/Work Notes [id number] 9#1.00CD:127 Normal [facility] CHEMISTRYOrdered By: Lab ROP User on 02-24-2022 Glucose [Mass/Vol] 119 mg/dL High 55 - 99 mg/dL FTM C POC Subsection Comment on above: Result Comment: Isha priti Meter POC Device SN [id number] Invalid Interpretation Code [facility] POC Subsection POC User ID [id number] Invalid Interpretation Code [facility] POC Subsection POC Username IQRA DODSON Invalid Interpretation Code [facility] POC Subsection Capillary Glucose POCon 02-06 Glucose [Mass/Vol] 119 mg/dL High 55-99 [facility] Comment on above: Result Comment: Isha priti Meter Performed By: #### 2 [id number] ####[facility] [id number] [place] [address] Consent for Procedure/Surger yon 02-24-2022 Consent for Procedure/Surgery [id number] #1.00CD:127 Normal [facility] Consent for Treatmenton 02-06 Consent for Treatment [id number] #1.00CD:127 Normal [facility] Inpatient Patient Summaryon 02-24-2022 Inpatient Patient Summary [place] [id number] [facility] Clinical Discharge Instructions PERSON INFORMATION Name: HAKEEM STARK [facility] Admitting Physician: Aravind SU MD Attending Physician: Aravind SU MD PCP: DANN DAVISON CNP Discharge Diagnosis: Comment: PATIENT EDUCATION INFORMATION Instructions: Lithotripsy, Care After; Lapj-Lrin-vv Utereroscopy,Lithotr ipsy, Stone Extraction, Stent Placement (Custom); Post Op Patient Instructions - FT (Custom) (CUSTOM) Medication Leaflets: Follow up: With: Address: When: Aravind SU [facility], [address], [place] [address] [facility] (1) Comments: Office will call for next step MEDICATION LIST Medications to Continue with No Changes Other Medications aspirin (Aspirin 81 mg Tab-EC) 81 Milligram By Mouth every day. atorvastatin (atorvastatin 80 mg Tab) 80 Milligram By Mouth every day. lisinopril (lisinopril 10 mg Tab) 10 Milligram By Mouth every day. meloxicam (meloxicam 15 mg oral tablet) 200 Milligram By Mouth every day. metformin (metformin 750 mg ER Tab) 750 Milligram By Mouth 2 times a day. tamsulosin (tamsulosin 0.4 mg Cap) 1 Capsules By Mouth every day. Refills: 8. Comment: Velma [facility] Main OR PACU I Recordon 02-06 Main OR PACU I Record PACU Phase I Document Type FT Summary Primary Physician: Aravind SU MD Finalized Date/Time: 02/24/22 16:26:47 Pt. Name: HAKEEM STARK/Sex: 1955 Male Med Rec #: [id number] Physician: Aravind SU MD Financial #: [id number] Pt. Type: A [facility] Admit/Disch: 02/24/22 10:13:52 - Institution: Case Times PACU I FT Pre-Care Text: Identifies barriers to communication and implements measures to provide psychological support Develops individualized plan of care, and ensures continuity of care Maintains patient's dignity and privacy, and maintains patient confidentiality Identifies and reports philosophical, cultural, and spiritual beliefs and values Identifies individual values and wishes concerning care Implements aseptic technique, and administers prescribed antibiotic therapy and immunizing agents as ordered Evaluates postoperative tissue perfusion Implements thermoregulation measures, and monitors body temperature Evaluates postoperative respiratory status Evaluates postoperative cardiac status Evaluates postoperative neurological status Assesses pain control, collaborated in initiating patient-controlled analgesia and implements alternative methods of pain control Verifies allergies, administers prescribed medications and solutions, evaluates response to medications Entry 1 In PACU I 02/24/22 15:48:00 Discharge from PACU 02/24/22 16:18:00 I Outcomes Met? Yes Last Modified By: JAZIEL PICKARD RN 02/24/22 16:26:33 Post-Care Text: The patient demonstrates knowledge of the expected response to the operative or invasive procedure The patient's care is consistent with the individualized perioperative plan of care The patient's right to privacy is maintained The patient's value system, lifestyle, ethnicity, and culture are considered, respected, and incorporated into the perioperative plan of care The patient participates in decisions affecting his or her perioperative plan of care The patient is free from signs and symptoms of infection The patient has wound/tissue perfusion consistent with or improved from baseline levels established preoperatively The patient is at or returning to normothermia at the conclusion of the immediate postoperative period The patient's respiratory function is consistent with or improved from baseline levels established preoperatively The patient's cardiovascular status is consistent with or improved from baseline levels established preoperatively The patient's cardiovascular status is consistent with or improved from baseline levels established preoperatively The patient demonstrates and/or reports adequate pain control throughout the perioperative period The patient received appropriate medication(s), safely administered during the perioperative period Acuity Level PACU I FT Entry 1 Start Time 02/24/22 15:48:00 Stop Time 02/24/22 16:18:00 Acuity Level Acuity Level I Last Modified By: JAZIEL PICKARD RN 02/24/22 16:26:43 Finalized By: JAZIEL PICKARD RN Document Signatures Signed By: JAZIEL PICKARD RN 02/24/22 16:26 Normal [facility] Main OR PACU II Recordon Main OR PACU II Record PACU Phase II Document Type FT Summary Primary Physician: Aravind SU MD Finalized Date/Time: 02/24/22 17:43:27 Pt. Name: HAKEEM STARK/Sex: 1955 Male Med Rec #: [id number] Physician: Aravind SU MD Financial #: [id number] Pt. Type: A Room/Bed: AS06/11 Admit/Disch: 02/24/22 10:13:52 - 02/24/22 17:35:00 Institution: Case Times PACU II FT Pre-Care Text: Identifies barriers to communication and implements measures to provide psychological support and determines knowledge level Develops individualized plan of care, and ensures continuity of care Maintains patient's dignity and privacy, and maintains patient confidentiality Identifies and reports philosophical, cultural, and spiritual beliefs and values Identifies individual values and wishes concerning care administers prescribed antibiotic therapy and immunizing agents as ordered, Evaluates postoperative tissue perfusion Implements thermoregulation measures, and monitors body temperature Evaluates postoperative respiratory status Evaluates postoperative cardiac status Evaluates postoperative neurological status Assesses pain control, collaborated in initiating patient-controlled analgesia and implements alternative methods of pain control Verifies allergies, administers prescribed medications and solutions, evaluates response to medications Entry 1 In PACU II 02/24/22 16:20:00 Discharge from PACU 02/24/22 17:35:00 II Outcomes Met? Yes Last Modified By: Ally Petty RN 02/24/22 17:43:25 Post-Care Text: The patient demonstrates knowledge of the expected response to the operative or invasive procedure The patient's care is consistent with the individualized perioperative plan of care The patient's right to privacy is maintained The patient's value system, lifestyle, ethnicity, and culture are considered, respected, and incorporated into the perioperative plan of care The patient participates in decisions affecting his or her perioperative plan of care. The patient is free from signs and symptoms of infection The patient has wound/tissue perfusion consistent with or improved from baseline levels established preoperatively The patient is at or returning to normothermia at the conclusion of the immediate postoperative period The patient's respiratory function is consistent with or improved from baseline levels established preoperatively The patient's cardiovascular status is consistent with or improved from baseline levels established preoperatively The patient's neurological status is consistent with or improved from baseline levels established preoperatively The patient demonstrates and/or reports adequate pain control throughout the perioperative period The patient received appropriate medication(s), safely administered during the perioperative period Finalized By: Ally Petty RN Document Signatures Signed By: Ally Petty RN 02/24/22 17:43 Normal [facility] Main OR Preoperative Recordo n 02-24-2022 Main OR Preoperative Record PreOp Document Type FT Summary Primary Physician: Aravind SU MD Finalized Date/Time: 02/24/22 15:11:17 Pt. Name: MIHAKEEM./Sex: 1955 Male Med Rec #: [id number] Physician: Aravind SU MD Financial #: [id number] Pt. Type: A [facility] Admit/Disch: 02/24/22 10:13:52 - Institution: Case Times PreOp FT Pre-Care Text: Verifies consent for planned procedure, identifies individual values and wishes concerning care, includes family members in perioperative teaching Entry 1 Patient Times. In Pre Surgery 02/24/22 10:40:00 Out Pre Surgery 02/24/22 14:56:00 Outcomes Met? Yes Last Modified By: Kenyetta Ferrara RN 02/24/22 15:11:16 Post-Care Text: The patient participates in decisions affecting his or her perioperative plan of care Finalized By: Kenyetta Ferrara RN Document Signatures Signed By: Kenyetta Ferrara RN 02/24/22 15:11 Normal [facility] Monitor Recordon 02-24-2022 Monitor Record [id number] 3#1.00CD:127 Normal [facility] Monitor Record [id number] 3#1.00CD:127 Normal [facility] Operative Reporton 2 Operative Report Patient: HAKEEM STARK Age: 66 years Sex: Male : 1955 Associated Diagnoses: None Author: Aravind SU MD Postoperative Information Procedure: 1. Left ESWL. Date/ Time: 02/24/2022 15:48:00 Preoperative Diagnosis: Left renal calculus. Postoperative Diagnosis: same. Procedure: Anesthesia Method: General. Performed by: Aravind Su MD. Findings: Left renal calculi. Specimens Removed: None. Prosthesis: None. . Estimated Blood Loss: 0 ml. Orders Complications: None. Notes: Indications: This gentleman has a 9 mm left renal calculus and an ipsilateral 3 mm stone. These are nonobstructing. He now presents for left ESWL. He has signed an informed consent for this procedure after all the risks were explained to him in great detail. Some of these include bleeding, perinephric hematoma, infection, anesthesia just to name a few. Procedure: The patient was brought to the operating room and placed on the Siemens litho-star electromagnetic lithotripsy treatment table in the supine position. SCDs were placed on his lower extremities and turned on and functioning during the entire case. A timeout was done by all parties in the room. We all agreed on the patient's identification and the planned procedure for this patient. General anesthesia was then administered via LMA. We then brought the treatment head to his left flank. We then used fluoroscopy to identify the larger of the 2 left renal calculi. The stone was lined up in the crosshairs. We then began applying shocks at power level 2.0 and increased to a maximum of power level 3.7. Intermittent fluoroscopy showed that the stone was very slow to fragment. We applied a total of 3000 shocks to this stone and saw no meaningful fragmentation. The second smaller stone also was not fragmented. The procedure was then terminated. The patient was then transferred to a [place] bed and wheeled to PACU in stable condition.. Anesthesia type: General. Normal [facility] Comment on above: Result Comment: Elec tronically Signed By: Aravind SU MD\.br\Date and Time Signed: 02/24/22 15:52 EDT Outpatient Surgery Discharge Instructionon 02-24-2022 Outpatient Surgery Discharge Instruction [place] [id number] Patient Discharge Instructions PERSON INFORMATION Name: HAKEEM STARK Date of : 1955 Current Date: 02/24/2022 16:14:47 PHYSICIANS Admitting Physician: Aravind SU MD Discharge Diagnosis: HAKEEM STARK has been given the following list of follow-up instructions, prescriptions, and patient education materials: PATIENT FOLLOW-UP INFORMATION Diet: Regular Discharge Activity: Ambulate as tolerated Discharge Restrictions: No driving for 24 hrs Call Your Doctor For: Temperature above 101.5 degrees, Severe pain at the operative site IF UNABLE TO CONTACT YOUR PHYSICIAN AND YOU FEEL IT IS AN EMERGENCY, GO TO THE NEAREST EMERGENCY ROOM OR CALL 911 Luis, HAKEEM STARK, have received the attached patient education materials/instructio ns and have verbalized understanding: May we do a follow up call? Yes No I was present when discharge instructions were given Patient Signature Date Clinican/Nurse Signature Date Follow up: With: Address: When: Aravind SU [facility], [address], [place], [place] [id number] Business (1) Comments: Office will call for next step Pharmacy Information: You may receive a survey from [employer] asking you to rate your care experience. Your feedback is important and will help us understand what we do well and how we can improve the quality of care we provide to you, your loved ones and our community. It?s an honor to serve you. Thank you for choosing [facility] HERE ARE THE MEDICATION CHANGES THAT OCCURRED DURING YOUR HOSPITAL STAY Medications to Continue with No Changes Other Medications aspirin (Aspirin 81 mg Tab-EC) 81 Milligram By Mouth every day. atorvastatin (atorvastatin 80 mg Tab) 80 Milligram By Mouth every day. lisinopril (lisinopril 10 mg Tab) 10 Milligram By Mouth every day. meloxicam (meloxicam 15 mg oral tablet) 200 Milligram By Mouth every day. metformin (metformin 750 mg ER Tab) 750 Milligram By Mouth 2 times a day. tamsulosin (tamsulosin 0.4 mg Cap) 1 Capsules By Mouth every day. Refills: 8. PATIENT EDUCATION INFORMATION Instructions: Lithotripsy, Care After This sheet gives you information about how to care for yourself after your procedure. Your health care provider may also give you more specific instructions. If you have problems or questions, contact your health care provider. What can I expect after the procedure? After the procedure, it is common to have: ? Some blood in your urine. This should only last for a few days. ? Soreness in your back, sides, or upper abdomen for a few days. ? Blotches or bruises on your back where the pressure wave entered the skin. ? Pain, discomfort, or nausea when pieces (fragments) of the kidney stone move through the tube that carries urine from the kidney to the bladder (ureter). Stone fragments may pass soon after the procedure, but they may continue to pass for up to 4?8 weeks. ? If you have severe pain or nausea, contact your health care provider. This may be caused by a large stone that was not broken up, and this may mean that you need more treatment. ? Some pain or discomfort during urination. ? Some pain or discomfort in the lower abdomen or (in men) at the base of the penis. Follow these instructions at home: Medicines ? Take orhr-dwe-fssorlp and prescription medicines only as told by your health care provider. ? If you were prescribed an antibiotic medicine, take it as told by your health care provider. Do not stop taking the antibiotic even if you start to feel better. ? Do not drive for 24 hours if you were given a medicine to help you relax (sedative). ? Do not drive or use heavy machinery while taking prescription pain medicine. Eating and drinking ? Drink enough water and fluids to keep your urine clear or pale yellow. This helps any remaining pieces of the stone to pass. It can also help prevent new stones from forming. ? Eat plenty of fresh fruits and vegetables. ? Follow instructions from your health care provider about eating and drinking restrictions. You may be instructed: ? To reduce how much salt (sodium) you eat or drink. Check ingredients and nutrition facts on packaged foods and beverages. ? To reduce how much meat you eat. ? Eat the recommended amount of calcium for your age and gender. Ask your health care provider how much calcium you should have. General instructions ? Get plenty of rest. ? Most people can resume norm (more content not included)... Normal [facility] Outside Recordson 02-24-2022 Outside Records [id number] #[id number]:127 Normal [facility] Outside Records [id number] #1.00CD:127 Normal [facility] Patient Education - Texton 0 02-24-2022 Patient Education - Text Nephrology Lithotripsy, Care After This sheet gives you information about how to care for yourself after your procedure. Your health care provider may also give you more specific instructions. If you have problems or questions, contact your health care provider. What can I expect after the procedure? After the procedure, it is common to have: ? Some blood in your urine. This should only last for a few days. ? Soreness in your back, sides, or upper abdomen for a few days. ? Blotches or bruises on your back where the pressure wave entered the skin. ? Pain, discomfort, or nausea when pieces (fragments) of the kidney stone move through the tube that carries urine from the kidney to the bladder (ureter). Stone fragments may pass soon after the procedure, but they may continue to pass for up to 4?8 weeks. ? If you have severe pain or nausea, contact your health care provider. This may be caused by a large stone that was not broken up, and this may mean that you need more treatment. ? Some pain or discomfort during urination. ? Some pain or discomfort in the lower abdomen or (in men) at the base of the penis. Follow these instructions at home: Medicines ? Take adzu-hre-fqtvhxz and prescription medicines only as told by your health care provider. ? If you were prescribed an antibiotic medicine, take it as told by your health care provider. Do not stop taking the antibiotic even if you start to feel better. ? Do not drive for 24 hours if you were given a medicine to help you relax (sedative). ? Do not drive or use heavy machinery while taking prescription pain medicine. Eating and drinking ? Drink enough water and fluids to keep your urine clear or pale yellow. This helps any remaining pieces of the stone to pass. It can also help prevent new stones from forming. ? Eat plenty of fresh fruits and vegetables. ? Follow instructions from your health care provider about eating and drinking restrictions. You may be instructed: ? To reduce how much salt (sodium) you eat or drink. Check ingredients and nutrition facts on packaged foods and beverages. ? To reduce how much meat you eat. ? Eat the recommended amount of calcium for your age and gender. Ask your health care provider how much calcium you should have. General instructions ? Get plenty of rest. ? Most people can resume normal activities 1?2 days after the procedure. Ask your health care provider what activities are safe for you. ? Your health care provider may direct you to lie in a certain position (postural drainage) and tap firmly (percuss) over your kidney area to help stone fragments pass. Follow instructions as told by your health care provider. ? If directed, strain all urine through the strainer that was provided by your health care provider. ? Keep all fragments for your health care provider to see. Any stones that are found may be sent to a medical lab for examination. The stone may be as small as a grain of salt. ? Keep all follow-up visits as told by your health care provider. This is important. Contact a health care provider if: ? You have pain that is severe or does not get better with medicine. ? You have nausea that is severe or does not go away. ? You have blood in your urine longer than your health care provider told you to expect. ? You have more blood in your urine. ? You have pain during urination that does not go away. ? You urinate more frequently than usual and this does not go away. ? You develop a rash or any other possible signs of an allergic reaction. Get help right away if: ? You have severe pain in your back, sides, or upper abdomen. ? You have severe pain while urinating. ? Your urine is very dark red. ? You have blood in your stool (feces). ? You cannot pass any urine at all. ? You feel a strong urge to urinate after emptying your bladder. ? You have a fever or chills. ? You develop shortness of breath, difficulty breathing, or chest pain. ? You have severe nausea that leads to persistent vomiting. ? You faint. Summary ? After this procedure, it is common to have some pain, discomfort, or nausea when pieces (fragments) of the kidney stone move through the tube that carries urine from the kidney to the bladder (ureter). If this pain or nausea is severe, however, you should contact your health care provider. ? Most people can resume normal activities 1?2 days after the procedure. Ask your health care provider what activities are safe for you. ? Drink enough water and fluids to keep your urine clear or pale yellow. This helps any remaining pieces of the stone to pass, and it can help prevent new stones from forming. ? If directed, strain your urine and keep all fragments for your health care provider to see. Fragments or stones may be as small as a grain of salt. ? Get help ri (more content not included)... Normal [facility] Progress Note-Physicianon Progress Note-Physician Patient: HAKEEM STARK Age: 66 years Sex: Male : 1955 Associated Diagnoses: None Author: Parker Fields Jr., DO Postoperative Information Post Operative Note: Post Anesthesia Care Unit. Anesthetic utilized: General. Health Status Allergies: Allergic Reactions (Selected) No Known Allergies Problem list: All Problems Arthritis / SNOMED CT 5662961 / Confirmed Degenerative lumbar disc / SNOMED CT 76424357 / Confirmed Essential hypertension / SNOMED CT 49941354 / Confirmed Kidney stone / SNOMED CT 593686668 / Confirmed Mixed hyperlipidemia / SNOMED CT 934050525 / Confirmed Smoker / SNOMED CT 306675310 / Confirmed Added secondary to documentation in Social History. Type 2 diabetes mellitus / SNOMED CT 098058966 / Confirmed Physical Examination Vital Signs 02/24/2022 16:20 EDT Heart Rate Monitored 84 bpm Respiratory Rate 18 br/min Systolic Blood Pressure 150 mmHg HI Diastolic Blood Pressure 90 mmHg Blood Pressure Location Right arm SpO2 96 % 02/24/2022 16:13 EDT Temperature Temporal Artery 36.3 DegC Heart Rate Monitored 94 bpm Respiratory Rate Monitored 15 br/min Systolic Blood Pressure 154 mmHg HI Diastolic Blood Pressure 95 mmHg HI SpO2 95 % 02/24/2022 16:00 EDT Heart Rate Monitored 90 bpm Respiratory Rate Monitored 24 br/min Systolic Blood Pressure 136 mmHg Diastolic Blood Pressure 87 mmHg SpO2 94 % 02/24/2022 15:55 EDT Heart Rate Monitored 104 bpm HI Respiratory Rate Monitored 18 br/min Systolic Blood Pressure 137 mmHg Diastolic Blood Pressure 87 mmHg SpO2 93 % 02/24/2022 15:50 EDT Heart Rate Monitored 98 bpm Respiratory Rate Monitored 19 br/min Systolic Blood Pressure 132 mmHg Diastolic Blood Pressure 92 mmHg HI SpO2 95 % 02/24/2022 15:48 EDT Temperature Temporal Artery 36.2 DegC LOW Heart Rate Monitored 104 bpm HI Respiratory Rate Monitored 22 br/min Systolic Blood Pressure 139 mmHg Diastolic Blood Pressure 89 mmHg SpO2 97 % Pain assessment: Pain Assessment 02/24/2022 16:20 EDT Pain Symptoms Self Report No, able to self report Patient Preferred Pain Tool Numeric rating Numeric Pain Scale 0 = No pain Numeric Pain Score 0 02/24/2022 16:13 EDT Numeric Pain Scale 0 = No pain Numeric Pain Score 0 02/24/2022 15:48 EDT Numeric Pain Scale 0 = No pain Numeric Pain Score 0 , Controlled. General: Alert and oriented, No acute distress, No nausea. Adequate hydration.. Respiratory: Adequate air exchange.. Cardiovascular: stable. Neurologic: Normal sensory. Review / Management Condition: Stable. Assessment Anesthetic outcome No anesthetic complications noted. Plan Transfer/ Discharge: Condition stable. Normal [facility] Comment on above: Result Comment: Elec tronically Signed By: Parker Fields Jr., DO\.br\Date and Time Signed: 02/24/22 17:16 EDT Progress Note-Physician Patient: HAKEEM STARK Age: 66 years Sex: Male : 1955 Associated Diagnoses: None Author: Parker Fields Jr., DO Preoperative Information Time patient last ate or drank:=== (NPO since midnight) Anesthesia history: Patient History: No prior problems with anesthesia.. Re-eval prior to induction: Inital eval reviewed: No significant interval change, Surgical H&P documented and on chart. Surgical consent signed and on chart.. Anesthesia results Review of Systems Cardiovascular: Negative except as documented in history of present illness. Respiratory: Negative. Neurologic: Negative. Health Status Allergies: Allergic Reactions (Selected) No Known Allergies, Allergies (1) Active Reaction No Known Allergies None Documented Current medications: (Selected) Inpatient Medications Ordered HYDROmorphone 1 mg/mL injectable solution: 0.4 mg = 0.4 mL, Injection, IV Push, q4min PRN Pain for 5 dose(s), Stop date Limited # of times, Routine, Start date 02/24/22 12:40:00 EDT, 02/24/22 12:40:00 EDT Lactated Ringers IV Amarilis 1000 mL 1,000 mL: 1,000 mL, IV, 100 mL/hr, Routine, Start date 02/24/22 12:40:00 EDT, 10 hour(s), Total volume (mL): 1,000, 106 kg, 2.3, m2 Lactated Ringers IV Amarilis 1000 mL 1,000 mL: 1,000 mL, IV, 150 mL/hr, Routine, Start date 02/24/22 11:30:00 EDT, 6.7 hour(s), Total volume (mL): 1,000 Phenergan 25 mg/mL Injection: 12.5 mg = 0.5 mL, Injection, IV Push, q2min PRN Other (see comment) for 2 dose(s), Stop date Limited # of times, Routine, Start date 02/24/22 12:40:00 EDT, 02/24/22 12:40:00 EDT cefazolin additive + Sodium Chloride 0.9% intravenous solution 50 mL: 1 gm = 1 EA, Injection, IV Piggyback, PREOP, Routine, Start date 02/24/22 11:30:00 EDT, 100 mL/hr, Infuse over 30 minute(s) Prescriptions Prescribed tamsulosin 0.4 mg Cap: 0.4 mg = 1 cap(s), Oral, Daily, # 30 cap(s), Refills(s) 8, Pharmacy: [id number], 180, cm, 01/17/22 9:28:00 EDT, Height/Length Dosing, 112, kg, 01/17/22 9:28:00 EDT, Weight Dosing Documented Medications Documented Aspirin 81 mg Tab-EC: 81 mg, Oral, Daily, Refills(s) 0, Blood Thinner atorvastatin 80 mg Tab: 80 mg, Oral, Daily, Refills(s) 0, High cholesterol lisinopril 10 mg Tab: 10 mg, Oral, Daily, Refills(s) 0, High blood pressure meloxicam 15 mg oral tablet: 200 mg, Oral, Daily, Refills(s) 0, Arthritis metformin 750 mg ER Tab: 750 mg, Oral, BID, Refills(s) 0, High blood sugar Histories Past Medical History: No active or resolved past medical history items have been selected or recorded. Family History: Hypertension Mother Heart disease Mother Diabetes mellitus type 2 Mother Cancer of colon Brother Stroke Father Heart attack Father High cholesterol Mother Procedure history: Colonoscopy ([id number]). Social History Social & Psychosocial Habits Alcohol 02/24/2022 Type: Beer Comment: beer 1-3 daily - 02/24/2022 10:TRICIA Guzman RN, Amber R Substance Abuse Comment: denies - 02/24/2022 10:TRICIA Guzman RN, Amber R Tobacco 01/17/2022 Tobacco Use: Smoker, current status un Type: Cigarettes Comment: 1 10/10 ppd cigarettes - 02/24/2022 10:TRICIA Guzman RN, Amber R . Physical Examination Measurements from flowsheet : Measurements 02/24/2022 11:12 EDT Weight Dosing 106.0 kg 02/24/2022 11:12 EDT Height/Length Dosing 180.3 cm 02/24/2022 9:42 EDT Height/Length Measured 180.34 cm Height/Length Measured 180.34 cm Height/Length Dosing 180.3 cm Weight Dosing 106.0 kg [place] Body Weight Calculated 75.3 kg BSA Measured 2.3 m2 Body Mass Index Measured 32.59 kg/m2 Weight Measured 106 kg Weight Measured 106 kg Airway: Mallampati classification: II (soft palate, fauces, uvula visible). Respiratory: Lungs are clear to auscultation. Cardiovascular: Regular rhythm. Review / Management Results review: Lab results 02/24/2022 10:56 EDT Glucose Cap 119 mg/dL ID POC Device SN [id number] POC User ID [id number] POC Username [email or web address] REYNA . Chest x-ray results * Final Report * Reason For Exam P.A.T. POWERSCRIBE REPORT IMPRESSION: NO EVIDENCE OF ACTIVE CARDIOPULMONARY DISEASE. COPD, WHICH IS BEST EVALUATED CLINICALLY. EXAM: XR Chest 2 Views DATE: 02/24/2022 CLINICAL HISTORY: P.A.T.. Smoker. COMPARISON: None available. TECHNIQUE: Upright PA and lateral radiographs of the chest were obtained. FINDINGS: There is no developing infiltrate, pleural effusion, vascular congestion, pneumothorax, cardiomegaly, or displaced fractures identified. Mild coarsening of the bronchovascular structures suggestive of COPD, . Signature Line FINAL REPORT Dictated: 02/24/2022 11:51 am Nehemias Kurtz MD Signed (Electronic Signature): 02/24/2022 11:51 am Signed by: Nehemias Kurtz MD Transcribed by: BARBARA Technologist: KHLOE RAD REPORT This document has an image Result type: XR Chest 2 Views Result date: February 24, 2022 10:38 EDT Result status: A (more content not included)... Normal [facility] Comment on above: Result Comment: Elec tronically Signed By: Parker Fields Jr., DO\.br\Date and Time Signed: 02/24/22 12:43 EDT XR Chest 2 Viewson XR Chest 2 Views Exam Date/Time: 02/24/2022 10:38 EDT Reason for Exam: P.A.T. Report IMPRESSION: NO EVIDENCE OF ACTIVE CARDIOPULMONARY DISEASE. COPD, WHICH IS BEST EVALUATED CLINICALLY. EXAM: XR Chest 2 Views DATE: 02/24/2022 CLINICAL HISTORY: P.A.T.. Smoker. COMPARISON: None available. TECHNIQUE: Upright PA and lateral radiographs of the chest were obtained. FINDINGS: There is no developing infiltrate, pleural effusion, vascular congestion, pneumothorax, cardiomegaly, or displaced fractures identified. Mild coarsening of the bronchovascular structures suggestive of COPD, . FINAL REPORT Dictated: 02/24/2022 11:51 am Nehemias Kurtz MD Signed (Electronic Signature): 02/24/2022 11:51 am Signed by: Nehemias Kurtz MD Transcribed by: BARBARA Technologist: KHLOE Normal [facility] XR KUB 1 VIEWon 02-24-2022 XR KUB 1 VIEW EXAMINATION: XR KUB 1 VIEW HISTORY: Urolithiasis COMPARISON: No relevant comparison available. FINDINGS: KIDNEY/URETER - RIGHT: No visible renal or ureteral calcifications. KIDNEY/URETER - LEFT: Stable left nephrolithiasis the largest stone measures 1.6 mm PELVIS: No visible ureteral calcifications. Any visible calcifications favor phleboliths. BOWEL: No abnormal dilation or deviation. BONES: Mild degenerative changes of the spine. Bilateral hip osteoarthritis OTHER: Negative. No abnormal gaseous collections. IMPRESSION: Stable left nephrolithiasis Electronically authenticated by: YAIMA NOONAN Date: 2022-02-24 07:[address] [facility] CBC AUTO DIFFon 02-21-2022 BASO # 0.1 103/ul Normal 0.0-0.[address] [facility] Comment on above: Performed By: #### A 1C #### [facility] [address] [place] [address] [address] Gigi To Basophils/100 WBC (Bld) 0.6 % Normal 0.2-2.[address] [facility] Comment on above: Performed By: #### A 1C #### [facility] [address] [place] [address] Dr. Gigi To EO # 0.2 103/ul Normal 0.0-0.[address] [facility] Comment on above: Performed By: #### A 1C #### [facility] [address] [place] [address] Dr. Gigi To Eosinophils/100 WBC (Bld) 1.9 % Normal 0.9-7.[address] [facility] Comment on above: Performed By: #### A 1C #### [facility] [address] [place] [address] Dr. Gigi To Erythrocyte distribution width (RBC) [Ratio] 14.3 % Normal 11.0-15.[address] [facility] Comment on above: Performed By: #### A 1C #### [facility] [address] [place] [address] Dr. Gigi To Hematocrit (Bld) [Volume fraction] 40.4 % Critically low 42.0-54.[address] [facility] Comment on above: Performed By: #### A 1C #### [facility] [address] [place] [address] Dr. Gigi To Hemoglobin (Bld) [Mass/Vol] 13.4 g/dL Critically low 14.0-18.[address] [facility] Comment on above: Performed By: #### A 1C #### [facility] [address] [place] [address] Dr. Gigi To IG # 0.02 10e3/ul Normal 0.00-0.03 [facility] Comment on above: Performed By: #### A 1C #### [facility] [address] [place] [address] Dr. Gigi To IG % 0.3 % Normal 0.0-0.5 [facility] Comment on above: Performed By: #### A 1C #### [facility] [address] [place] [address] Dr. Gigi oT LYMPH # 2.4 103/ul Normal 1.2-3.8 [facility] Comment on above: Performed By: #### A 1C #### [facility] [address] [place] [address] Dr. Gigi To Lymphocytes/100 WBC (Bld) 30.7 % Normal 20.5-60.0 [facility] Comment on above: Performed By: #### A 1C #### [facility] [address] [place] [address] Dr. Gigi To MANUAL DIFF REQ NO Normal [facility] Comment on above: Performed By: #### A 1C #### [facility] [address] [place] [address] Dr. Gigi To MCH (RBC) [Entitic mass] 31.8 pg Normal 25.9-34.0 [facility] Comment on above: Performed By: #### A 1C #### [facility] [address] [place] [address] Dr. Gigi To MCHC (RBC) [Mass/Vol] 33.2 g/dL Normal 29.9-35.[address] [facility] Comment on above: Performed By: #### A 1C #### [facility] [address] [place] [address] Dr. Gigi To MCV (RBC) [Entitic vol] 95.7 fL Critically high 80.0-94.0 [facility] Comment on above: Performed By: #### A 1C #### [facility] [address] [place] [address] Dr. Gigi To MONO # 0.8 103/ul Normal 0.3-0.8 [facility] Comment on above: Performed By: #### A 1C #### [facility] [address] [place] [address] Dr. Gigi To Monocytes/100 WBC (Bld) 10.0 % Normal 1.7-12.0 [facility] Comment on above: Performed By: #### A 1C #### [facility] [address] [place] [address] Dr. Gigi To NEUT # 4.4 103/ul Normal 1.4-6.5 [facility] Comment on above: Performed By: #### A 1C #### [facility] [address] [place] [address] Dr. Gigi To Neutrophils/100 WBC (Bld) 56.5 % Normal 43.0-75.0 [facility] Comment on above: Performed By: #### A 1C #### [facility] [address] [place] [address] Dr. Gigi To Platelet mean volume (Bld) [Entitic vol] 9.1 fL Critically low 9.5-13.5 [facility] Comment on above: Performed By: #### A 1C #### [facility] [address] [place] [address] Dr. Gigi To PLT 256 103/ul Normal 150-[address] [facility] Comment on above: Performed By: #### A 1C #### [facility] [address] [place] [address] Dr. Gigi To RBC 4.22 106/ul Critically low 4.70-6.10 [facility] Comment on above: Performed By: #### A 1C #### [facility] [address] [place] [address] Dr. Gigi To WBC 7.8 103/ul Normal 4.0-11.0 [facility] Comment on above: Performed By: #### A 1C #### [facility] [address] [place] [address] Dr. Gigi To PROF CHEM 8 (BAS METB)on Anion gap [Moles/Vol] 13.6 mmol/L Normal [facility] Comment on above: Performed By: #### B MP #### [facility] [address] [place] [address] Dr. Gigi To Calcium [Mass/Vol] 9.2 mg/dL Normal 8.5-10.1 [facility] Comment on above: Performed By: #### B MP #### [facility] [address] [address] [address] Gigi To Chloride [Moles/Vol] 104 mmol/L Normal 98-107 [facility] Comment on above: Performed By: #### B MP #### [facility] [address] [place] [address] Dr. Gigi To CO2 [Moles/Vol] 26.9 mmol/L Normal 21.0-32.0 [facility] Comment on above: Performed By: #### B MP #### [facility] [address] [place] [address] Dr. Gigi To Creatinine [Mass/Vol] 0.95 mg/dL Normal 0.70-1.30 [facility] Comment on above: Performed By: #### B MP #### [facility] [address] [place] [address] Dr. Gigi To EGFR-AF TAIWANESE >60 Normal >=60 [facility] Comment on above: Performed By: #### B MP #### [facility] [address] [place] [address] Dr. Gigi To EGFR-NON AF TAIWANESE >60 Normal >=60 [facility] Comment on above: Performed By: #### B MP #### [facility] [address] [place] [address] Dr. Gigi To Glucose [Mass/Vol] 121 mg/dL Critically high 74-106 [facility] Comment on above: Performed By: #### B MP #### [facility] [address] [place] [address] Dr. Gigi To Potassium [Moles/Vol] 4.5 mmol/L Normal 3.5-5.1 [facility] Comment on above: Performed By: #### B MP #### [facility] [address] [place] [address] Dr. Gigi To Sodium [Moles/Vol] 140 mmol/L Normal 136-145 [facility] Comment on above: Performed By: #### B MP #### [facility] [address] [place] [address] Dr. Gigi To Urea nitrogen [Mass/Vol] 15.0 mg/dL Normal 7.0-18.0 [facility] Comment on above: Performed By: #### B MP #### [facility] [address] [place] [address] Dr. Gigi To Urea nitrogen/Creatinine [Mass ratio] 15.8 mg/mg Normal [facility] Comment on above: Performed By: #### B MP #### [facility] [address] [place] [address] Dr. Gigi To PROTIMEon 02-21-2022 INR Coag (PPP) [Relative time] 0.99 {INR} Normal [facility] Comment on above: Performed By: #### A 1C #### [facility] [address] [place] [address] Dr. Gigi To INR GUIDELINES SEE BELOW Normal [facility] Comment on above: Result Comment: ASHLEY RED INR: 2.0 - 3.0 CONDITIONS NOT LISTED BELOW 2.5 - 3.5 FOR PROSTHETIC HEART VALVE REPLACEMENT 2.5 - 3.5 RECURRENT THROMBOSIS Performed By: #### A 1C #### [facility] [address] [place] [address] Dr. Gigi To PT Coag (PPP) [Time] 10.7 s Normal 9.0-11.6 [facility] Comment on above: Performed By: #### A 1C #### [facility] [address] [place] [address] Dr. Gigi To PTTon 02-21-2022 aPTT Coag (Bld) [Time] 26.2 s Normal 22.3-36.2 [facility] Comment on above: Performed By: #### A 1C #### [facility] [id number] Gigi To Formson 02-16-2022 Forms [id number] #1.00CD:127 Normal [facility] Lab Reportson 01-20-2022 Lab Reports [id number]# 1.00CD:127 Normal [facility] Physician Referralon 022 Physician Referral [id number] #1.00CD:127 Normal [facility] Ambulatory Visit Summaryon 0 01-17-2022 Ambulatory Visit Summary HAKEEM STARK :1955 Visit Date:01/17/2022 Ambulatory Visit Instructions Your Diagnosis BPH with urinary obstruction Kidney stone Other obstructive and reflux uropathy Tests Performed Urnls Dip Stick Auto w/o Microscopy POC 39080 Your Care Team Attending Physician - Aravind SU MD Primary Care Physician - DANN DAVISON CNP Referring Physician - DANN DAVISON CNP This Is Your Medications List tamsulosin (tamsulosin 0.4 mg Cap) Contact prescribing physician if questions or concerns aspirin (Aspirin 81 mg Tab-EC) atorvastatin (atorvastatin 80 mg Tab) lisinopril (lisinopril 10 mg Tab) meloxicam (meloxicam 15 mg oral tablet) metformin (metformin 750 mg ER Tab) Procedures Performed Colonoscopy. Discharge Vitals Heart Rate (Peripheral) 101 Respiratory Rate 16 Blood Pressure 139/86 Height 180 cm Height 180.0 cm Weight 112 kg Weight 112.0 kg BMI 34.57 What to do next You Need to Schedule the Following Appointments Follow Up with ЮЛИЯ MORALES, VINI Klein When: Why: Will schedule Left ESWL Where: [facility] [address] [place] [address]- [phone] Medications What How Much When Instructions New tamsulosin (tamsulosin 0.4 mg Cap) 1 Capsules By Mouth Every day Refills: 8 Pickup at [facility] Unchanged aspirin (Aspirin 81 mg Tab-EC) By Mouth Every day Contact prescribing physician if questions or concerns Unchanged atorvastatin (atorvastatin 80 mg Tab) By Mouth Every day Contact prescribing physician if questions or concerns Unchanged lisinopril (lisinopril 10 mg Tab) By Mouth Every day Contact prescribing physician if questions or concerns Unchanged meloxicam (meloxicam 15 mg oral tablet) By Mouth Every day Contact prescribing physician if questions or concerns Unchanged metformin (metformin 750 mg ER Tab) By Mouth Every day Contact prescribing physician if questions or concerns Pharmacy Information [facility]: [address] [place] [address] [phone] Test Results Urnls Dip Stick Auto w/o Microscopy POC 97762 (01/17/2022) Bilirubin Urine Dipstick - Negative Blood Urine Dipstick - Trace-lysed Glucose Urine Dipstick - Negative Ketones Urine Dipstick - Negative Leukocytes Urine Dipstick - Negative Nitrite Urine Dipstick - Negative Protein Urine Dipstick - Negative Specific [place] Urine Dipstick - 1.025 Urine Appearance Urine Dipstick - Clear Urine Color Urine Dipstick - Yellow Urobilinogen Urine Dipstick - Normal 0.2-1 EU/dl pH Urine Dipstick - 5.5 Allergies No Known Allergies Problems Ongoing - Any problem that you are currently receiving treatment for. Essential hypertension Mixed hyperlipidemia Smoker Type 2 diabetes mellitus Education Materials Calorie Counting for Weight Loss Calories are units of energy. Your body needs a certain amount of calories from food to keep you going throughout the day. When you eat more calories than your body needs, your body stores the extra calories as fat. When you eat fewer calories than your body needs, your body mejía fat to get the energy it needs. Calorie counting means keeping track of how many calories you eat and drink each day. Calorie counting can be helpful if you need to lose weight. If you make sure to eat fewer calories than your body needs, you should lose weight. Ask your health care provider what a healthy weight is for you. For calorie counting to work, you will need to eat the right number of calories in a day in order to lose a healthy amount of weight per week. A dietitian can help you determine how many calories you need in a day and will give you suggestions on how to reach your calorie goal. ? A healthy amount of weight to lose per week is usually 1?2 lb (0.5?0.9 kg). This usually means that your daily calorie intake should be reduced by 500?750 calories. ? Eating 1,200 ? 1,500 calories per day can help most women lose weight. ? Eating 1,500 ? 1,800 calories per day can help most men lose weight. What is my plan? My goal is to have calories per day. If I have this many calories per day, I should lose around pounds per week. What do I need to know about calorie counting? In order to meet your daily calorie goal, you will need to: ? Find out how many calories are in each food you would like to eat. Try to do this before you eat. ? Decide how much of the food you plan to eat. ? Write down what you ate and how many calories it had. Doing this is called keeping a food log. To successfully lose weight, it is important to balance calorie counting with a healthy lifestyle that includes regular activity. Aim for 150 minutes of moderate exercise (such as walking) or 75 minutes of vigorous exercise (such as running) each week. Where do I find calorie information? The number of calories in a food can be (more content not included)... Normal [facility] Patient Educationon 01-18-20 Patient Education Nutrition Calorie Counting for Weight Loss Calories are units of energy. Your body needs a certain amount of calories from food to keep you going throughout the day. When you eat more calories than your body needs, your body stores the extra calories as fat. When you eat fewer calories than your body needs, your body mejía fat to get the energy it needs. Calorie counting means keeping track of how many calories you eat and drink each day. Calorie counting can be helpful if you need to lose weight. If you make sure to eat fewer calories than your body needs, you should lose weight. Ask your health care provider what a healthy weight is for you. For calorie counting to work, you will need to eat the right number of calories in a day in order to lose a healthy amount of weight per week. A dietitian can help you determine how many calories you need in a day and will give you suggestions on how to reach your calorie goal. ? A healthy amount of weight to lose per week is usually 1?2 lb (0.5?0.9 kg). This usually means that your daily calorie intake should be reduced by 500?750 calories. ? Eating 1,200 ? 1,500 calories per day can help most women lose weight. ? Eating 1,500 ? 1,800 calories per day can help most men lose weight. What is my plan? My goal is to have calories per day. If I have this many calories per day, I should lose around pounds per week. What do I need to know about calorie counting? In order to meet your daily calorie goal, you will need to: ? Find out how many calories are in each food you would like to eat. Try to do this before you eat. ? Decide how much of the food you plan to eat. ? Write down what you ate and how many calories it had. Doing this is called keeping a food log. To successfully lose weight, it is important to balance calorie counting with a healthy lifestyle that includes regular activity. Aim for 150 minutes of moderate exercise (such as walking) or 75 minutes of vigorous exercise (such as running) each week. Where do I find calorie information? The number of calories in a food can be found on a Nutrition Facts label. If a food does not have a Nutrition Facts label, try to look up the calories online or ask your dietitian for help. Remember that calories are listed per serving. If you choose to have more than one serving of a food, you will have to multiply the calories per serving by the amount of servings you plan to eat. For example, the label on a package of bread might say that a serving size is 1 slice and that there are 90 calories in a serving. If you eat 1 slice, you will have eaten 90 calories. If you eat 2 slices, you will have eaten 180 calories. How do I keep a food log? Immediately after each meal, record the following information in your food log: ? What you ate. Don't forget to include toppings, sauces, and other extras on the food. ? How much you ate. This can be measured in cups, ounces, or number of items. ? How many calories each food and drink had. ? The total number of calories in the meal. Keep your food log near you, such as in a small notebook in your pocket, or use a mobile kenney or website. Some programs will calculate calories for you and show you how many calories you have left for the day to meet your goal. What are some calorie counting tips? ? Use your calories on foods and drinks that will fill you up and not leave you hungry: ? Some examples of foods that fill you up are nuts and nut butters, vegetables, lean proteins, and high-fiber foods like whole grains. High-fiber foods are foods with more than 5 g fiber per serving. ? Drinks such as sodas, specialty coffee drinks, alcohol, and juices have a lot of calories, yet do not fill you up. ? Eat nutritious foods and avoid empty calories. Empty calories are calories you get from foods or beverages that do not have many vitamins or protein, such as candy, sweets, and soda. It is better to have a nutritious high-calorie food (such as an avocado) than a food with few nutrients (such as a bag of chips). ? Know how many calories are in the foods you eat most often. This will help you calculate calorie counts faster. ? Pay attention to calories in drinks. Low-calorie drinks include water and unsweetened drinks. ? Pay attention to nutrition labels for low fat or fat free foods. These foods sometimes have the same amount of calories or more calories than the full fat versions. They also often have added sugar, starch, or salt, to make up for flavor that was removed with the fat. ? Find a way of tracking calories that works for you. Get creative. Try different apps or programs if writing down calories does not work for you. What are some portion control tips? ? Know how many calories are in a serving. This will help you know how many servings of a certain food you can have. ? Use a measuring cup to measure serving sizes. You could (more content not included)... Normal [facility] Urology Office/Clinic Noteon 01-17-2022 Urology Office/Clinic Note Chief Complaint 8mm left kidney stone found on KUB HPI Staff Referral for left sided 8mm kidney stone found on KUB done 12/10/21. Pt was having back and hip pain and upon going for imaging a KUB was done and the stone was an incidental finding. He has no urinary complaints at this time. 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 I have reviewed the previous health history and record for this patient with Dr. Su. Review of Systems PHQ Score Initial Depression Screen Score: 0 ROS - Provider Constitutional: denies weight loss, denies hot flashes. Eyes: denies eye problems. Gastrointestinal: denies nausea, denies vomiting. Cardiovascular: denies chest pain or angina. Integumentary: no dryness Musculoskeletal: denies musculoskeletal symptoms. ENMT: denies otolaryngeal symptoms. Respiratory: no shortness of breath. Heme/Lymph: denies easy bleeding tendency, denies easy bruising tendency. Psychiatric: no confusion, no anxiety. Genitourinary: denies dysuria, denies hematuria, denies discharge, denies urinary frequency, denies urinary hesitancy, denies nocturia, denies incontinence, denies genital sores, denies decreased libido, and denies erectile dysfunction. Physical Exam Vitals & Measurements HR: 101(Peripheral) RR: 16 BP: 139/86 HT: 180 cm HT: 180.0 cm WT: 112 kg WT: 112.0 kg BMI: 34.57 General Appearance: alert, no distress, well nourished, well developed male. Head: normocephalic . Eyes: normal orbit and globe. ENMT: normal examination of external ears. Chest: Lungs CTA, respirations non labored. Cardiovascular: regular rate and rhythm. Abdomen: soft, non distended, no tenderness, no mass or organomegaly, no hernia. Genitourinary: normal scrotum, normal testes, normal urethra, normal epididymis, normal vas deferens/spermatic cord. Flank Pain: none. Bladder: nonpalpable. Penis: normal shaft, normal glans. Prostate: normal prostate, estimated weight 35 gms, no hard nodule observed. Lymph Nodes: unremarkable palpation of the cervical area. Skin: warm, dry, no bruising. Psychiatric: cooperative, affect appropriate for age, normal judgement, euthymic mood. Assessment/Plan 1. BPH with urinary obstruction (N40.1: Benign prostatic hyperplasia with lower urinary tract symptoms) Fair stream. Patient does not take any BPH meds at this time. Will continue to monitor. Patient states he sometimes has intermittency/dribbl ing while he is voiding. Discussed starting Tamsulosin 0.4mg qd therapy. Script sent to [facility]. PSA was done 03/15/2021 0.37. ISRA[place] done today was 35 grams, benign. 2. Kidney stone (N20.0: Calculus of kidney) KUB done 12/13/21 shows Left kidney stone, 8 mm. Patient states he has never had stones before. He is not having stone pain. Will schedule Left ESWL. The procedure risks, benefits, details and treatment alternatives have been discussed with the patient. These include blood in the urine, infection, bleeding around the kidney, kidney bruising, inability to break up the stone, need for blood transfusion, blockage from stone fragments, and need for additional procedures, among others. Full informed consent has been obtained. Will order General anesthesia. Other obstructive and reflux uropathy (N13.8: Other obstructive and reflux uropathy) I have reviewed the previous health history and record for this patient with Dr. Su. Will schedule left ESWL. Follow-up With When Contact Information ЮЛИЯ MORALES, Aravind Edwards, [facility] [address] [place] [address]- [phone] Additional Instructions: Will schedule Left ESWL Patient Education Calorie Counting for Weight Loss Benign Prostatic Hyperplasia Kidney Stones, Eabx-ze-Nhua Janee Smith, personally scribed for Dr. Su on 01/17/2022 10:00:25. . Documentation recorded by the kristy dominguez, accurately reflects the services(s) I performed and decisions made by me. Authenticated by Dr. Su on 01/17/2022 10:02:07. Problem List/Past Medical History Ongoing Essential hypertension Mixed hyperlipidemia Smoker Type 2 diabetes mellitus Historical No qualifying data Procedure/Surgical History Colonoscopy. Medications Aspirin 81 mg Tab-EC, Oral, Daily atorvastatin 80 mg Tab, Oral, Daily lisinopril 10 mg Tab, Oral, Daily meloxicam 15 mg oral tablet, Oral, Daily metformin 750 mg ER Tab, Oral, Francis (more content not included)... Normal [facility] Comment on above: Result Comment: Elec tronically Signed By: Aravind SU MD.br\Date and Time Signed: 01/17/22 10:02 EDT\.br\Electronically Co-Signed By: Janee Ojeda.br\Date and Time Co-Signed: 01/17/22 10:00 EDT Vital Signs Date Time Vital Sign Value Performing Clinician Faci lity 02-24-2022 17:16-0400 Blood Pressure Location Aravind SU [facility] 02-24-2022 17:16-0400 BP/Pulse Patient Position Aravind SU [facility] 02-24-2022 17:16-0400 Diastolic blood pressure 80 mm[Hg] Aravind SU [facility] 02-24-2022 17:16-0400 Heart rate 85 /min Aravind SU [facility] 02-24-2022 17:16-0400 Mean blood pressure 103 mm[Hg] Aravind SU [facility] 02-24-2022 17:16-0400 Respiratory rate 18 /min Aravind SU [facility] 02-24-2022 17:16-0400 SaO2% (BldA) [Mass fraction] 97 % Aravind SU [facility] 02-24-2022 17:16-0400 Systolic blood pressure 150 mm[Hg] Aravind SU [facility] 02-24-2022 16:20-0400 Blood Pressure Location Aravind SU [facility] 02-24-2022 16:20-0400 Diastolic blood pressure 90 mm[Hg] Aravind SU [facility] 02-24-2022 16:20-0400 Heart rate 84 /min Aravind SU [facility] 02-24-2022 16:20-0400 Respiratory rate 18 /min Aravind SU [facility] 02-24-2022 16:20-0400 SaO2% (BldA) [Mass fraction] 96 % Aravind SU [facility] 02-24-2022 16:20-0400 Systolic blood pressure 150 mm[Hg] Aravind SU [facility] 02-24-2022 16:13-0400 Body temperature 97.34 [degF] Aravind SU [facility] 02-24-2022 16:13-0400 Diastolic blood pressure 95 mm[Hg] Aravind SU [facility] 02-24-2022 16:13-0400 Heart rate 94 /min Aravind SU [facility] 02-24-2022 16:13-0400 Respiratory rate 15 /min Aravind SU [facility] 02-24-2022 16:13-0400 SaO2% (BldA) [Mass fraction] 95 % Aravind SU [facility] 02-24-2022 16:13-0400 Systolic blood pressure 154 mm[Hg] Aravind SU [facility] 02-24-2022 16:00-0400 Respiratory rate 24 /min Aravind SU [facility] 02-24-2022 15:55-0400 Respiratory rate 18 /min Aravind [employer] [facility] 02-24-2022 15:48-0400 Body temperature 97.16 [degF] Aravind ЮЛИЯ [facility] 02-24-2022 15:45-0400 Respiratory rate 1 /min Aravind ЮЛИЯ [facility] 02-24-2022 10:49-0400 Blood Pressure Location Aravind SU [facility] 02-24-2022 10:49-0400 Mean blood pressure 100 mm[Hg] Aravind SU [facility] 02-24-2022 10:47-0400 Body temperature 98.06 [degF] Aravind SU [facility] 02-24-2022 10:47-0400 Mean blood pressure 115 mm[Hg] Aravind SU [facility] 02-24-2022 10:47-0400 Heart rate 96 /min Aravind SU [facility] Encounters Encounter Date Encounter Type Care Provider Facility Start: 12-26-2022 ambulatory PATTI DAVISON Facil ity:[facility] Start: 12-02-2022 End: 12-02-2022 ambulatory SARTHAK STEPHENS . Facility: Start: 11-05-2022 End: 11-06-2022 ambulatory PATTI DAVISON Facility:[facility] Start: 03-19-2022 End: 03-20-2022 ambulatory PATTI DAVISON Facility: Start: 02-25-2022 Encounter for other preprocedural examination DR ARAVIND SU . [facility] Start: 02-25-2022 Encounter for prepro cedural cardiovascular examination DR ARAVIND SU . [facility] Start: 02-25-2022 Encounter for prepro cedural laboratory examination DR ARAVIND SU . [facility] Start: 02-24-2022 End: 02-24-2022 ambulatory MD Aravind SU Facility[facility] Start: 02-24-2022 End: 02-24-2022 Admission to same day surgery center Aravind SU [facility] Start: 02-24-2022 End: 02-24-[address] ARAVIND SU . Facility:[facility] Start: 02-21-2022 End: 02-22-[address] ARAVIND SU . Facility:[facility] Start: 02-21-2022 End: 02-22-2022 Encounter for preprocedural laboratory examination DR ARAVIND SU . Facility:[facility] Start: 02-15-2022 ambulatory DANN DANN DAVISON Faci lity:[facility] Start: 01-17-2022 End: 01-18-2022 ambulatory DANN DANN Alexa DAVISON Facility:[facility] Start: 12-15-2021 ambulatory DANN DANN DAVISON Faci lity:[facility] Procedures Date Procedure Procedure Detail Performing Clinician Start: 03-19-2022 PSA screening [employer] DANN DAVISON Comment on above: Performed By: #### P SAD #### [facility] [address] [address] [address] Gigi To Start: 02-24-2022 Extracorporeal shock wave lithotripsy of calculus of kidney Aravind SU Colonoscopy Aravind SU Immunizations Immunization Date Immunization Notes Care Provider Fa le 03-15-2021 SARS-CoV-2 (COVID-19 ) mRNA BNT-162b2 vax Aravind SU [facility] 02-27-2021 SARS-CoV-2 (COVID-19 ) mRNA BNT-162b2 vax Aravind SU [facility] Payers Date Payer Category Payer Private Health Insurance [id number] 1955 Unknown [id number] [id number] [id number] 1955 Unknown [id number] [id number] [id number] 1955 Unknown [id number] 2.16.8 [id number] 1955 Unknown [id number] 2.16.84 [id number] 1955 Unknown [id number] 2.16.84 [id number] 1955 Unknown [id number] 2.16.84 [id number] 1955 Unknown [id number] 2.16.84 [id number] 1955 Unknown [id number] 2.16.84 [id number] 1955 Unknown [id number] 2.16.84 [id number] Social History Date Type Detail Facility Tobacco [facility] Comment on above: 1 1/2 ppd cigarettes Sex Assigned At Male [facility] History and physical note 05-23-2022 Note Date & Type Note Facility 05-23-2022 Note [id number]#[id number]:127 [facility] Hospital Discharge instructions 02-24-2022 Note Date & Type Note Facility 02-24-2022 Hospital Discharg e instructions Patient Education 02/24/2022 16:14:46 Lithotripsy, Care After Lithotripsy, Care After This sheet gives you information about how to care for yourself after your procedure. Your health care provider may also give you more specific instructions. If you have problems or questions, contact your health care provider. What can I expect after the procedure? After the procedure, it is common to have: Some blood in your urine. This should only last for a few days. Soreness in your back, sides, or upper abdomen for a few days. Blotches or bruises on your back where the pressure wave entered the skin. Pain, discomfort, or nausea when pieces (fragments) of the kidney stone move through the tube that carries urine from the kidney to the bladder (ureter). Stone fragments may pass soon after the procedure, but they may continue to pass for up to 4 8 weeks. ?If you have severe pain or nausea, contact your health care provider. This may be caused by a large stone that was not broken up, and this may mean that you need more treatment. Some pain or discomfort during urination. Some pain or discomfort in the lower abdomen or (in men) at the base of the penis. Follow these instructions at home: Medicines Take [id number] and prescription medicines only as told by your health care provider. If you were prescribed an antibiotic medicine, take it as told by your health care provider. Do not stop taking the antibiotic even if you start to feel better. Do not drive for 24 hours if you were given a medicine to help you relax (sedative). Do not drive or use heavy machinery while taking prescription pain medicine. Eating and drinking Drink enough water and fluids to keep your urine clear or pale yellow. This helps any remaining pieces of the stone to pass. It can also help prevent new stones from forming. Eat plenty of fresh fruits and vegetables. Follow instructions from your health care provider about eating and drinking restrictions. You may be instructed: ?To reduce how much salt (sodium) you eat or drink. Check ingredients and nutrition facts on packaged foods and beverages. ?To reduce how much meat you eat. Eat the recommended amount of calcium for your age and gender. Ask your health care provider how much calcium you should have. General instructions Get plenty of rest. Most people can resume normal activities 1 2 days after the procedure. Ask your health care provider what activities are safe for you. Your health care provider may direct you to lie in a certain position (postural drainage) and tap firmly (percuss) over your kidney area to help stone fragments pass. Follow instructions as told by your health care provider. If directed, strain all urine through the strainer that was provided by your health care provider. ?Keep all fragments for your health care provider to see. Any stones that are found may be sent to a medical lab for examination. The stone may be as small as a grain of salt. Keep all follow-up visits as told by your health care provider. This is important. Contact a health care provider if: You have pain that is severe or does not get better with medicine. You have nausea that is severe or does not go away. You have blood in your urine longer than your health care provider told you to expect. You have more blood in your urine. You have pain during urination that does not go away. You urinate more frequently than usual and this does not go away. You develop a rash or any other possible signs of an allergic reaction. Get help right away if: You have severe pain in your back, sides, or upper abdomen. You have severe pain while urinating. Your urine is very dark red. You have blood in your stool (feces). You cannot pass any urine at all. You feel a strong urge to urinate after emptying your bladder. You have a fever or chills. You develop shortness of breath, difficulty breathing, or chest pain. You have severe nausea that leads to persistent vomiting. You faint. Summary After this procedure, it is common to have some pain, discomfort, or nausea when pieces (fragments) of the kidney stone move through the tube that carries urine from the kidney to the bladder (ureter). If this pain or nausea is severe, however, you should contact your health care provider. Most people can resume normal activities 1 2 days after the procedure. Ask your health care provider what activities are safe for you. Drink enough water and fluids to keep your urine clear or pale yellow. This helps any remaining pieces of the stone to pass, and it can help prevent new stones from forming. If directed, strain your urine and keep all fragments for your health care provider to see. Fragments or stones may be as small as a grain of salt. Get help right away if you have severe pain in your back, sides, or upper abdomen or have severe pain while urinating. This information is not intended to replace advice given to you by your health care provider. Make sure you discuss any questions you have with your health care provider. Document Released: 10/14/2008 Document Revised: 01/06/2020 Document Reviewed: 08/16/2017 [employer] Patient Education 2020 [employer]. 02/24/2022 16:14:46 [id number]-[id number] Utereroscopy,Lithotripsy, Stone Extraction, Stent Placement (Custom) [facility] [place], [place] Post-operative Instructions for Ureteroscopy, Laser Lithotripsy, Stone Extraction and Stent Placement There are no incisions or dressings to be concerned with, as the procedure was performed inside the urinary system. For 24 hours after surgery: No driving or operating machinery Do not make important decisions Do not consume alcohol, sleeping pills Stent Placement You may have a stent which spans the distance between your bladder and your kidney, allowing urine to pass through. It prevents blockage from swelling, kidney stones in ureter (tube connecting the kidney to the bladder), or scars. The presence of the stent may cause: Back or side pain, especially with urination Frequent or urgent urination Bladder pressure or pain Blood in urine You may pass stone debris or small blood clots, which is expected. Drinking plenty of water to dilute the urine may help. If there is a thread coming out of urinary channel, be careful not to accidently pull on this, as it is attached to the stent. The stent will most likely be removed in the office during a short procedure in which a scope is placed into the bladder, the stent is grasped and removed. At other times the stent may need to stay longer, either in preparation for other procedures or for other reasons. If it is to remain mcc, however, changes of the stent are required (about every 3-4 months). Diet You may resume your normal diet, but you may want to start slowly and avoid spicy food, caffeine, carbonated beverages and alcohol, especially if you have a stent. Your diet and fluid intake may make irritation from the stent worse. Activity You may resume your normal activities, although you should take it easy on the day of the procedure. Minimizing activity may decrease the back discomfort and irritation from the stent, if present. Medications You may resume your home medications unless instructed otherwise. Hold aspirin, ibuprofen, Coumadin (warfarin) and other blood thinners until your office visit (we will discuss when to resume these medications) Take your prescribed medications as directed, including your antibiotics. You may also be given a prescription for pain medicine or medicines to help with the bladder irritation from stent, if present. Things to watch for which would require an Emergency Room Visit (or call 911) (This is not a complete list) Fever over 101.5 degrees, with or without chills Severe bleeding Severe drug reactions with itching, hives, rash, or severe flank pain Tenderness or swelling or the calves, chest pain, or shortness of breath Please call the office to arrange for your post-operative appointment (with XRAY) [phone] 02/24/2022 16:12:34 Post Op Patient Instructions - FT (Custom) (CUSTOM) Follow Up Care 02/24/2022 09:52:22 With:Aravind SU Address: [facility] [address] [place] [address]- [facility] (1) When: Unknown Comments:Office will call for next step [facility] Evaluation + Plan note 02-24-2022 Note Date & Type Note Facility 02-24-2022 Evaluation + Plan note Extrac rita from: Title:Post-anesthesia - General Author:Parker Ramirez DO Date:02/24/22 Plan Transfer/ Discharge: Condition stable. Extracted from: Title:Pre-anesthesia - Adult Author:Parker Fields Jr., DO Date:02/24/22 Plan [place] [employer] (ASA) physical status classification: Class III. Anesthetic Preoperative Plan Anesthesia: General. . Anesthetic plan, risks, benefits, and alternatives discussed with the patient and/or family. Patient verbalized understanding. Adverse reactions, complications, and alternatives discujssed. Consent signed and on chart.. [facility] History and physical note 02-24-2022 Note Date & Type Note Facility 02-24-2022 Note [id number] #[id number]:127 [facility] Hospital course Narrative Note Date & Type Note Facility Hospital course Narrative No data available for this section [facility] Summary Purpose Family History No Family History Records FoundNo Family History Records Found Advance Directives No Advanced Directives Records FoundNo Advanced Directives Records Found Additional Source Comments (unrecognized sect ion and content) No Status Records FoundNo Status Records Found INFORMATION SOURCE (unrecogn ized section and content) DATE CREATED AUTHOR 08/08/2022 [facility] DATE CREATED AUTHOR AUTHOR'S ORGANIZ ATION 12/23/2022 [facility] FOR RECORDS PERTAINING TO PATIENTS WHO ARE OR HAVE BEEN ENROLLED IN A CHEMICAL DEPENDENCY/SUBSTANCEABUSE PROGRAM, SOME INFORMATION MAY BE OMITTED. This clinical summary was aggregated from multiple sources. Caution should be exercised in using it in the provision of clinical care. This summary normalizes information from multiple sources, and as a consequence, information in this document may materially change the coding, format and clinical context of patient data. In addition, data may be omitted in some cases. CLINICAL DECISIONS SHOULD BE BASED ON THE PRIMARY CLINICAL RECORDS. [facility]. provides no warranty or guarantee of the accuracy or completeness of information in this document.
== END 2023-12-23 07:34 | disposition home or self-care (01) ==
LOC: CT 07:34
PROVIDERS: PCP Nurse Practitioner; Visit Provider Nurse Practitioner
DX: R91.8 Other nonspecific abnormal finding of lung field (principal); F17.210 Nicotine dependence, cigarettes, uncomplicated
CPT/HCPCS: 71271

== ENCOUNTER 2024-05-06 07:23 | Outpatient (OUT) | payer OTHER, SELFPAY ==
--- OUTSIDE RECORDS SUMMARY | 2024-05-06 07:28 | XMS_ITS | CCD ---
Author Organization [facility] Care Team Providers Care Director Of Grants Name Role Phone MILDRED CORRAL Primary Care Physician MILDRED CORRAL Referring Unavailabl e MD Aravind SU Attending Unavailable MD Aravind SU Admitting Unavailable MD Aravind SU Referring Unavailable MD Aravind SU Attending Unavailable MD Aravind SU Attending Unavailable AICHHOLZ, ORDER PICKER/ASSEMBLER MILDRED Admitting Unavailable AICHHOLZ, ORDER PICKER/ASSEMBLER MILDRED Attending Unavailable AICHHOLZ, ORDER PICKER/ASSEMBLER MILDRED Primary Care Unavailable AICHHOLZ, ORDER PICKER/ASSEMBLER MILDRED Consulting Unavailable AICHHOLZ, ORDER PICKER/ASSEMBLER MILDRED Admitting Unavailable AICHHOLZ, ORDER PICKER/ASSEMBLER MILDRED Attending Unavailable AICHHOLZ, ORDER PICKER/ASSEMBLER MILDRED Primary Care Unavailable AICHHOLZ, ORDER PICKER/ASSEMBLER MILDRED Consulting Unavailable PATRICK VAZQUEZ Consulting Unavailable AICHHOLZ, ORDER PICKER/ASSEMBLER MILDRED Admitting Unavailable AICHHOLZ, ORDER PICKER/ASSEMBLER MILDRED Attending Unavailable AICHHOLZ, ORDER PICKER/ASSEMBLER MILDRED Primary Care Unavailable SU ., DR BALDERRAMA Admitting Unavailable SU ., DR BALDERRAMA Attending Unavailable AICHHOLZ, ORDER PICKER/ASSEMBLER MILDRED Primary Care Unavailable SU ., DR BALDERRAMA Consulting Unavailable MARSHA SAAB Consulting Unavailable SU ., DR BALDERRAMA Admitting Unavailable SU ., DR BALDERRAMA Attending Unavailable AICHHOLZ, ORDER PICKER/ASSEMBLER MILDRED Primary Care Unavailable SU ., DR BALDERRAMA Consulting Unavailable MORNING SUN, DR YAIMA Hughes Consulting Unavailable LAURA NEGRON Consulting Unavailable KAT .SARTHAK Admitting Unavailable TAMRAZ .SARTHAK Attending Unavailable AICHHOLZ, ORDER PICKER/ASSEMBLER MILDRED Primary Care Unavailable TAMDEJAN ., SARTHAK Consulting Unavailable OFELIA BOONE Consulting Unavailable CARIDAD MILLER Consulting Unavailable Mildred Corral J Primary Care Provider Mildred Corral Attending Provider Mildred Corral Attending Unavailable Mildred Corral Admitting Unavailable Mildred Corral Primary Care Unavailable Medications Current Medications Medication Drug Class(es) [...] Daily, # 30 cap(s), Refills(s) 8, Pharmacy: [facility], 180, cm, 01/17/22 9:28:00 EDT, [...] Arthritis 02-24-2022 Chronic Other aftercare (1 source) 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; 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: [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 DX] Onset: 12-06-2022 Episodic Other and unspecified benign neoplasm (1 source) Personal history of colonic polyps; 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: [PERSONAL HISTORY OF COLONIC POLYPS] Onset: 12-06-2022 Episodic Other lower respiratory disease (1 source) Other nonspecific abnormal finding of lung field; 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: [Other nonspecific abnormal finding of lung field] Onset: 03-25-2024 Episodic Other screening for suspected conditions (not [...] 02-24-2022 02-24-2022 Episodic Other aftercare (1 source) penitentiary (current) use of anticoagulants; 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: [SENIOR CARE CURRNT USE ANTICOAGULANTS] Onset: 03-01-2022 Episodic Residual codes; unclassified (1 source) Procedure and treatment not carried out for other reasons; 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: [PROC AND TX NOT CARRIED OUT OTH REASONS] Onset: 03-01-2022 Episodic Results Test Name Value Interpretation Reference Range Facility Capillary blood glucose alex urement by glucometer (mass/volume)Ordered By: Mildred Aichholz on 03-25-2024 Glucose [Mass/Vol] 130 mg/dL Normal [facility] Comment on above: Random Glucose Refer ence Range is dependent on time and content of last meal. Glucose of more than 200 mg/dL in a nonstressed, ambulatory subject supports the diagnosis of Diabetes Mellitus. Result Comment: [place] om Glucose Reference Range is dependent on time and content of last meal. Glucose of more than 200 mg/dL in a nonstressed, ambulatory subject supports the diagnosis of Diabetes Mellitus. PERFORMED BY: [place] [address] PATHOLOGIST LEHR OPERATOR ONEYDA GUEVARA M.D. Performed By: #### G LULS #### Point of Care testing , PET tumor init tx strat sb-m ton 03-25-2024 PET tumor init tx strat sb-mt [facility] [place] [address] [place] [address] Nuclear Medicine Report Signed Patient: Hakeem Stark MR#: [id number] : 1955 Acct:[id number] Age/Sex: 68 / M ADM Date: 03/25/24 Loc: Room: Type: [facility] Attending Dr: Mildred Corral Copies to: Galen Wadsworth Jr, [place] Price Ordering Provider: [place] Starr Date of Service: 03/25/24 PET/PET tumor init tx strat sb-mt: Lung Nodule PET/CT FUSION IMAGING CLINICAL INFORMATION: Lung nodule COMPARISON : Outside low-dose CT 12/23/2023 TECHNIQUE: Noncontrasted CT scan from the base of the skull to the upper thigh followed by PET imaging. Multiplanar PET/CT fusion images. Blood Glucose : 1:30 mg/dL The F-18 FDG 14.3mCi. FINDINGS: Neck: No abnormal activity. Chest:No abnormal activity. No abnormal lung activity is seen. Abdomen/pelvis: No abnormal activity within the abdomen. Abnormal activity is seen within the prostate gland. SUV max of 3.4. Soft tissue/bones: No abnormal activity. CT findings: No pneumothorax. No pericardial or pleural effusions. No free air or free fluid. PET/PET tumor init tx strat sb-mt IMPRESSION: No abnormal activity is seen within the chest. CT follow-up is recommended of the patient's lung nodules. Abnormal activity is seen involving the prostate gland. Correlation with PSA level and prostate MRI is suggested. Impression dictated by: Galen Wadsworth Jr., D.O.03/25/2024 11:58 AM Dictation Location: [place] [address] Transcribed By: [facility] 03/25/24 1158 Dictated By: Galen Wadsworth Jr DO 03/25/24 1150 Signed By: 03/25/24 1158 Normal [facility] Glucose Poct Glucometerson 0 03-18-2024 Glucose [Mass/Vol] 115 mg/dL Normal The [facility]placed by [facility] Comment on above: Result Comment: [facility] Glucose Reference Range is dependent on time and content of last meal. Glucose of more than 200 mg/dL in a nonstressed, ambulatory subject supports the diagnosis of Diabetes Mellitus. PERFORMED BY: [address] [place] [address] PATHOLOGIST LEHR OPERATOR ONEYDA GUEVARA M.D. Performed By: #### G LULS #### Point of Care testing , CT LUNG CANCER SCREENINGon 0 11-05-2022 CT [...] Please consider referral for smoking cessation to [facility] Medication Therapy Management (MTM) if clinically appropriate. [...] two extremes (Agatston score 101-1000). https://pubs.rsna.or g/doi/abs/10.1148/ra diol.[email or web address] Electronically authenticated by: PATRICK VAZQUEZ Date: 2022-11-05 20:06 Normal [facility] GLYCOHEMOGLOBIN A1Con 2022 ADA RECOMMENDATION SEE BELOW Normal [facility] Comment on above: Result Comment: ADA RECOMMENDED LIMIT 4.0 - 6.0 ADA THERAPEUTIC TARGET < 7.0 ACTION SUGGESTED > 7.0 Performed By: #### A 1C #### [facility] [address] [address] [address] Gigi To Glucose [Mass/Vol] 117 mg/dL Normal [facility] Comment on above: Performed By: #### A 1C #### [facility] [address] [address] [address] Gigi To HbA1c (Bld) [Mass fraction] 5.7 % Normal 4.5-6.2 [facility] Comment on above: Performed By: #### A 1C #### [facility] [address] [address] [address] Gigi To PROF CHEM 8 (BAS METB)on Anion gap [Moles/Vol] 16.1 mmol/L Normal [facility] Comment on above: Performed By: #### B MP #### [facility] [address] [address] [address] Gigi To Calcium [Mass/Vol] 9.4 mg/dL Normal 8.5-10.1 [facility] Comment on above: Performed By: #### B MP #### [facility] [address] [address] [address] Gigi To Chloride [Moles/Vol] 105 mmol/L Normal 98-107 [facility] Comment on above: Performed By: #### B MP #### [facility] [address] [place] [address] Dr. Gigi To CO2 [Moles/Vol] 25.8 mmol/L Normal 21.0-32.0 [facility] Comment on above: Performed By: #### B MP #### [facility] [address] [place] [address] Dr. Gigi To Creatinine [Mass/Vol] 1.02 mg/dL Normal 0.70-1.30 [facility] Comment on above: Performed By: #### B MP #### [facility] [address] [place] [address] Dr. Gigi To EGFR-AF YEMENI >60 Normal >=60 [facility] Comment on above: Performed By: #### B MP #### [facility] [address] [address] [address] Gigi To EGFR-NON AF YEMENI >60 Normal >=60 [facility] Comment on above: Performed By: #### B MP #### [facility] [address] [place] [address] Dr. Gigi To Glucose [Mass/Vol] 109 mg/dL Critically high 74-106 [facility] Comment on above: Performed By: #### B MP #### [facility] [address] [address] [address] Gigi To Potassium [Moles/Vol] 4.9 mmol/L Normal 3.5-5.1 [facility] Comment on above: Performed By: #### B MP #### [facility] [id number] Gigi oT Sodium [Moles/Vol] 142 mmol/L Normal 136-145 [facility] Comment on above: Performed By: #### B MP #### [facility] [id number] Gigi To Urea nitrogen [Mass/Vol] 25.0 mg/dL Critically high 7.0-18.0 [facility] Comment on above: Performed By: #### B MP #### [facility] [address] [place] [address] Dr. Gigi To Urea nitrogen/Creatinine [Mass ratio] 24.5 mg/mg Normal [facility] Comment on above: Performed By: #### B MP #### [facility] [address] [place], [place] [address] Dr. Gigi To Patient Letter FTon 2021 Patient Letter [facility] [place] [facility] [place] August 08, 2022 HAKEEM STARK [address] [place] [address] Dear Mr. Hakeem Stark, Our records show [...] Aravind Su M.D., F.A.C.S. [facility] [address] [place] [id number] [facility] H&P Updateon 05-23-2022 H&P Update [id number] 6#1.00CD:127 Normal [facility] Pre-Certification Formon Pre-Certification Form [id number] #1.00CD:127 Normal [facility] CBC AUTO DIFFon 03-19-2022 BASO # 0.1 103/ul Normal 0.0-0.1 [facility] Comment on above: Performed By: #### C BC #### [facility] [address] [address] [address] Gigi To Basophils/100 WBC (Bld) 0.5 % Normal 0.2-2.0 [facility] Comment on above: Performed By: #### C BC #### [facility] [address] [address] [address] Gigi To EO # 0.3 103/ul Normal 0.0-0.7 [facility] Comment on above: Performed By: #### C BC #### [facility] [address] [place] [address] Dr. Gigi To Eosinophils/100 WBC (Bld) 2.7 % Normal 0.9-7.0 [facility] Comment on above: Performed By: #### C BC #### [facility] [address] [address] [address] Gigi To Erythrocyte distribution width (RBC) [Ratio] 14.0 % Normal 11.0-15.0 [facility] Comment on above: Performed By: #### C BC #### [facility] [address] [place] [address] Dr. Giig To Hematocrit (Bld) [Volume fraction] 43.7 % Normal 42.0-54.0 [facility] Comment on above: Performed By: #### C BC #### [facility] [address] [address] [address] Gigi To Hemoglobin (Bld) [Mass/Vol] 14.4 g/dL Normal 14.0-18.0 [facility] Comment on above: Performed By: #### C BC #### [facility] [address] [address] [address] Gigi To IG # 0.03 10e3/ul Normal 0.00-0.03 [facility] Comment on above: Performed By: #### C BC #### [facility] [address] [place] [address] Dr. Gigi To IG % 0.3 % Normal 0.0-0.5 [facility] Comment on above: Performed By: #### C BC #### [facility] [address] [place] [address] Dr. Gigi To LYMPH # 2.9 103/ul Normal 1.2-3.8 [facility] Comment on above: Performed By: #### C BC #### [facility] [address] [place] [address] Dr. Gigi To Lymphocytes/100 WBC (Bld) 29.4 % Normal 20.5-60.0 [facility] Comment on above: Performed By: #### C BC #### [facility] [address] [place] [address] Dr. Gigi To MANUAL DIFF REQ NO Normal [facility] Comment on above: Performed By: #### C BC #### [facility] [address] [place] [address] Dr. Gigi To MCH (RBC) [Entitic mass] 32.2 pg Normal 25.9-34.0 [facility] Comment on above: Performed By: #### C BC #### [facility] [address] [place] [address] Dr. Gigi To MCHC (RBC) [Mass/Vol] 33.0 g/dL Normal 29.9-35.2 [facility] Comment on above: Performed By: #### C BC #### [facility] [address] [place] [address] Dr. Gigi To MCV (RBC) [Entitic vol] 97.8 fL Critically high 80.0-94.0 [facility] Comment on above: Performed By: #### C BC #### [facility] [address] [place] [address] Dr. Gigi To MONO # 0.8 103/ul Normal 0.3-0.8 [facility] Comment on above: Performed By: #### C BC #### [facility] [address] [address] [address] Gigi To Monocytes/100 WBC (Bld) 8.6 % Normal 1.7-12.0 [facility] Comment on above: Performed By: #### C BC #### [facility] [address] [address] [address] Gigi To NEUT # 5.7 103/ul Normal 1.4-6.5 [facility] Comment on above: Performed By: #### C BC #### [facility] [address] [address] [address] Gigi To Neutrophils/100 WBC (Bld) 58.5 % Normal 43.0-75.0 [facility] Comment on above: Performed By: #### C BC #### [facility] [address] [place] [address] Dr. Gigi To Platelet mean volume (Bld) [Entitic vol] 8.7 fL Critically low 9.5-13.5 [facility] Comment on above: Performed By: #### C BC #### [facility] [address] [place] [address] Dr. Gigi To PLT 280 103/ul Normal 150-450 [facility] Comment on above: Performed By: #### C BC #### [facility] [address] [place] [address] Dr. Gigi To RBC 4.47 106/ul Critically low 4.70-6.10 [facility] Comment on above: Performed By: #### C BC #### [facility] [address] [place] [address] Dr. Gigi To WBC 9.8 103/ul Normal 4.0-11.0 [facility] Comment on above: Performed By: #### C BC #### [facility] [address] [place] [address] Dr. Gigi To GLYCOHEMOGLOBIN A1Con 2021 ADA RECOMMENDATION SEE BELOW Normal [facility] Comment on above: Result Comment: ADA RECOMMENDED LIMIT 4.0 - 6.0 ADA THERAPEUTIC TARGET < 7.0 ACTION SUGGESTED > 7.0 Performed By: #### A 1C #### [facility] [address] [address] [address] Gigi To Glucose [Mass/Vol] 126 mg/dL Normal [facility] Comment on above: Performed By: #### A 1C #### [facility] [address] [address] [address] Gigi To HbA1c (Bld) [Mass fraction] 6.0 % Normal 4.5-6.2 [facility] Comment on above: Performed By: #### A 1C #### [facility] [address] [place] [address] Dr. Gigi To LIPID PROFILEon 03-19-2022 CHOL-HDL RATIO NORM SEE BELOW Normal [facility] Comment on above: Result Comment: 3.3 - 4.4 LOW RISK 4.4 - 7.1 AVERAGE RISK 7.1 - 11.0 MODERATE RISK >11.0 HIGH RISK Performed By: #### L IPID, CMP #### [facility] [address] [place] [address] Dr. Gigi To Cholesterol [Mass/Vol] 105 mg/dL Normal <=200 [facility] Comment on above: Performed By: #### L IPID, CMP #### [facility] [address] [place] [address] Dr. Gigi To Cholesterol in HDL [Mass/Vol] 29 mg/dL Critically low 40-60 [facility] Comment on above: Performed By: #### L IPID, CMP #### [facility] [address] [address] [address] Gigi To Cholesterol in LDL [Mass/Vol] 26.8 mg/dL Normal [facility] Comment on above: Performed By: #### L IPID, CMP #### [facility] [address] [place] [address] Dr. Gigi To Cholesterol.total/Ch olesterol in HDL [Mass ratio] 3.6 {ratio} Normal [facility] Comment on above: Performed By: #### L IPID, CMP #### [facility] [address] [place] [address] Dr. Gigi To HDL NORMAL > or = 60 mg/dl - LOW CARDIOVASCULAR RISK <40 mg/dl - HIGH CARDIOVASCULAR RISK Normal [facility] Comment on above: Performed By: #### L IPID, CMP #### [facility] [address] [address] [address] Gigi To LDL CALC NORMAL SEE BELOW Normal [facility] Comment on above: Result Comment: <100 mg/dl OPTIMAL 100 - 129 mg/dl NEAR OR ABOVE OPTIMAL 130 - 159 mg/dl BORDERLINE HIGH 160 - 189 mg/dl HIGH >190 mg/dl VERY HIGH Performed By: #### L IPID, CMP #### [facility] [address] [address] [address] Gigi To Triglyceride [Mass/Vol] 246 mg/dL Critically high <=150 [facility] Comment on above: Performed By: #### L IPID, CMP #### [facility] [address] [place] [address] Dr. Gigi To VLDL CALC 49.2 mg/dL Normal [facility] Comment on above: Performed By: #### L IPID, CMP #### [facility] [address] [place] [address] Dr. Gigi To MICROALBUMIN, RAND URon 03-09 mALB 1.5 mg/L Normal <=30.0 [facility] Comment on above: Performed By: #### M ALBR #### [facility] [address] [place] [address] Dr. Gigi To PROF 14(COMP METB)on 022 Albumin [Mass/Vol] 3.9 g/dL Normal 3.4-5.0 [facility] Comment on above: Performed By: #### L IPID, CMP #### [facility] [address] [place] [address] Dr. Gigi To Albumin/Globulin [Mass ratio] 1.1 {ratio} Normal [facility] Comment on above: Performed By: #### L IPID, CMP #### [facility] [address] [place] [address] Dr. Gigi To ALP [Catalytic activity/Vol] 42 U/L Critically low 46-116 [facility] Comment on above: Performed By: #### L IPID, CMP #### [facility] [address] [address] [address] Gigi To ALT [Catalytic activity/Vol] 30 U/L Normal 16-63 [facility] Comment on above: Performed By: #### L IPID, CMP #### [facility] [address] [address] [address] Gigi To Anion gap [Moles/Vol] 14.5 mmol/L Normal [facility] Comment on above: Performed By: #### L IPID, CMP #### [facility] [address] [place] [address] Dr. Gigi To AST [Catalytic activity/Vol] 17 U/L Normal 15-37 [facility] Comment on above: Performed By: #### L IPID, CMP #### [facility] [address] [place] [address] Dr. Gigi To Bilirubin [Mass/Vol] 0.4 mg/dL Normal 0.2-1.0 [facility] Comment on above: Performed By: #### L IPID, CMP #### [facility] [address] [place] [address] Dr. Gigi To Calcium [Mass/Vol] 9.4 mg/dL Normal 8.5-10.1 [facility] Comment on above: Performed By: #### L IPID, CMP #### [facility] [address] [address] [address] Gigi To Chloride [Moles/Vol] 105 mmol/L Normal 98-107 [facility] Comment on above: Performed By: #### L IPID, CMP #### [facility] [address] [place] [address] Dr. Gigi To CO2 [Moles/Vol] 27.7 mmol/L Normal 21.0-32.0 [facility] Comment on above: Performed By: #### L IPID, CMP #### [facility] [address] [place] [address] Dr. Gigi To Creatinine [Mass/Vol] 1.00 mg/dL Normal 0.70-1.30 [facility] Comment on above: Performed By: #### L IPID, CMP #### [facility] [address] [place] [address] Dr. Gigi To EGFR-AF YEMENI >60 Normal >=60 [facility] Comment on above: Performed By: #### L IPID, CMP #### [facility] [address] [address] [address] Gigi To EGFR-NON AF YEMENI >60 Normal >=60 [facility] Comment on above: Performed By: #### L IPID, CMP #### [facility] [address] [place] [address] Dr. Gigi To Globulin (S) [Mass/Vol] 3.5 g/dL Normal [facility] Comment on above: Performed By: #### L IPID, CMP #### [facility] [address] [address] [address] Gigi To Glucose [Mass/Vol] 108 mg/dL Critically high 74-106 [facility] Comment on above: Performed By: #### L IPID, CMP #### [facility] [address] [place] [address] Dr. Gigi To Potassium [Moles/Vol] 4.2 mmol/L Normal 3.5-5.1 [facility] Comment on above: Performed By: #### L IPID, CMP #### [facility] [address] [place] [address] Dr. Gigi To Protein [Mass/Vol] 7.4 g/dL Normal 6.4-8.2 [facility] Comment on above: Performed By: #### L IPID, CMP #### [facility] [address] [place] [address] Dr. Gigi To Sodium [Moles/Vol] 143 mmol/L Normal 136-145 [facility] Comment on above: Performed By: #### L IPID, CMP #### [facility] [address] [place] [address] Dr. Gigi To Urea nitrogen [Mass/Vol] 21.0 mg/dL Critically high 7.0-18.0 [facility] Comment on above: Performed By: #### L IPID, CMP #### [facility] [id number] Gigi To Urea nitrogen/Creatinine [Mass ratio] 21.0 mg/mg Normal [facility] Comment on above: Performed By: #### L IPID, CMP #### [facility] [id number] Gigi To IntraOperative Documentson 0 03-03-2022 IntraOperative Documents [id number]# 1.00CD:127 Normal [facility] Postoperative Documentson Postoperative Documents [id number]# 1.00CD:127 Normal [facility] Coding Summary.on 03-02-2022 Coding Summary. CD:[id number] Gh0bWw+PGhlYWQ+PE1FV KZzD57meOErrA0NT8aQG B3ABTUIFBTMFZ9MBY3gd LS7SRlnL9KaquJb SwddgMFyAF54PQf9UXZ8 wLunAUbgqF9ppXXrZ1y7 NsEyQT09rL80HOcfJLUd IlQ0AqKhfrloiOAc R9cmFjRmrDNiMad+PHRh YmxlIHdpZHRoPScxMDAl OnHkxRyuYP2qWm2vHSNd LWNvbGxhcHNlOiBj f2xxIVKwOJtrUA6kwKop W6HwaKR5OKBie9m7At03 dHI+LSLqTVP1sFhaWLvx h496OkWlo6psQHB0 yAPyYOzuAEB0Q28zt3O0 DRQjWDVbBKZ8vVX1nY6r nCjoalnlH2LpxAHxIwZ4 GOE6cOCanT9pvXfc uzvdgK6rOmf+V06FBU9Y CEGEBB1QMlx2L1SrBbdc dHI+NL35KEVxWG95tOGp lYUhl3apgHt5ClPa JGQaRRJ8gSdoKPxrf2Cx FWGzA97rlBNly6Q1UXXt oJenvEJlFdAltUF4fF0y TXpuzuxkp5pgabmp Bdopu3mjie83cS43B08r CGdoJXZhQXI8ECBcKXCc tSacts6xiJ0aLf5+IDxj l0byt1hwsEf3ItSl ZJCqoqIttQcvFAM4h7On Yt11R1QugIgkw5YdYkc9 nl30pHYoi1D9mLD0ALhz KAYzlK4zBPzgLjK2 MUOrCnDgeT90qBAfWJkb Wj8cwJyhoWmlBE3uTHEh xbgkASFleJ9hTYLyzBNo vRgnGN6qPFBkibks a284OnZdJYX2IGQirLTq Q8AqzM1hDbYkNPFuGTBs P7WvyMHdQKfaR379RVax NyV8OIKebrOtY5Nr MIZgkGfoRwN9v8I3Vb0L z4ZrspdaJMN7MTsjYGL3 UzP2FfAkJpA7Y6EiBgi0 DCGjvGaeGP9dK6Fh XQWsejahrsnurAI5TNJm QAAhvM31bCTqPYrwBy4t b0K2l268KAFwONVjuV84 Vx3edSulTPRtaQWN hY4ocrqxm2mrfnmoZdRu HIAoEGt5SKg3BCGbiXun AmBbQMC0JvP9PYP4oHMl bO6gvXutfdeqnG2j Oyc+R04xrC9uSYU5UEB2 uqnbWCTrvuXsIZ61AW56 Z5GyJjkclMYclFP+PGRp mhLumBqaUG2cBsIy a8eal9BqNPghP8PlXZIu MBxyAmh0QMLlWRS4xUX8 hH4jVHUdWDfba7H2xHS7 X7OenoTrjq5kg9af MUJqNBxfU67xfSPjr7J7 YCRvmSK4LWUiaHsvVdAb tC61Fie+QNCatArdc3At Evqjv6sfs1qoaLz0 IjMwJSIgdmFsaWduPSJ0 d7WmWp42K84eDOhjGPPz WRRcUGYbOONzcHcvad4m sT6aKk9+PGNvbCB3 bZC6dX4lDUNhKgF3ICxf Z708WxVbgFUxBlurh0we a3unbJy7IdHsAAWjzfYy hYtuGDS0n1TvBo03 U39fDEkaQBLkYIFcJEVq LXSiqSwrbi2cbK4xIc4+ TJ3eb6jhdz26sE18xHN+ PJDuZYO0cHdkTDfx IHDwcV3kFIsdVkL7BULe VxHkmS22aAJnVXroRc0h jFnnwZckBO3xTBXzgxzl p605SkPnj7rqBVVr mGGmEKsyGMI0K64ju8G2 MSHdNDDaQOU1wRY5wN5h bGlnbjogbGVmdDsgdmVy rIagIQgzSXuoJ797 IHRvcDsnPlBhdGllbnQg FmKjHKl7R7VqOoi6VVIj eTkoMH0zePEqCUigMn5c dOzimYjdPU7nSCAv iiyxc662SwRor4whQKWv oSLwQQxhLRX1Q34cp2M9 JZWwWQNoPIM0jKY9xB2j bGlnbjogbGVmdDsg ifGszDkqKBrwQPcrX668 IHRvcDsnPkJpcnRoIERh vIL8XW37PW64pWAca4T5 lPR5I6BaPCScehge pamumOF9VKNzLXLdwB96 Wz9lrSmrRa5iZDGmILW0 YESjyZOlP8YojQ2aVvZc JDEjLLLiW5JlhFWd UCxsE425NTeiBkC4YARy arZjR4XdALTfmPefQjC0 t6Q3Pe2TO9X6HB86LO41 oDRgt5L8nGP7B0Ld FHQzpxrxdtfgiYS5GSBy QBIbwW25Jt4dyDtbTy8x UTAxPDI6SOAqhEBpY3Wb tI6nJdTpQZDwOBRu Y1OlmJOpDEwjV144ZUkl XcC6SKPrcyKkE4PvORKz qUxtRgT3x0W0Ra9GMHm7 RI78PV82kVOgo6O8 cKM9O1AkGQCxrauuinfh aMU4PNUkVCBrdM63Tp6i cManBc9dUEZxUAD0RLSs sTWdV7ZjqI9vDkIf PQBqGJAmR0DdgOKiHGcn P165NUfdLeM7QDGphhHy X1XmCRYvtQgrAtJ3f5K9 Qk4DVFOvMU35SZT8 kKQ9OW91OE15Z8TpRdwy dGFibGU+PHRhYmxlIHdp ZHRoPScxMDAlJyBzdHls XI5gLl7fBEPcKBWm eYopxBEgGbDyf3kiRSOc UVimHH4mbHboS6SivTB7 LMUah3q2Ms18Y74iV9Oz dXA+ZULhsWN7yWV0 iC2zOxThCuQ3LNmaA478 IuLjrTAoAoaki5bco4xf xZe9FyD7PWDniyDgfCog QOP6u7ZsRz24R55e IHdpZHRoPSIxNSUiIHZh nDvvlk9klS5kUm2+PGNv iNU5oCK3tV5cRmYuXbO0 XGitV537JwZhxFHy Gfxdq8xjh3alzRb1VqCk TUSqpxGmmUmkFSY4p9Jx Zk88I1MykTfuq6DiWws2 vq46tXSfr0L8iRX1 F7XuKOWklwjzvVWuqBie TJ9vBNXmttkoHCNfwY2o CWGkK9m2XpEnUcC3LCvb W8FurrI8QDQfyQMa NWluHNR6E11la9D4TEVt KPHyGBC9eAT2pV3nxWkh bjogbGVmdDsgdmVydGlj IOurHJzoW752JIZb zUteJEKgtR7rNCAjoJZr jJqaWV1rQEXrmnxiMzhE BDNGHR6eEWjZVY9lREdd dGQ+GLVtQUS1mJrz JWeaAXTeuQ5kQBUlA7r8 XmReWsG6CBzgA5LhHHZu vieqCt82aO9yOdQrFlI0 AYrlF0RbwoL2PREh qTPsMVxnIEA1S38kp6L7 RBAtSZNwCFB2fSF8xA4c bGlnbjogbGVmdDsgdmVy nDpuTSsiPImlE881 WZEtrFfwLfQ9FkFmZyX4 LGG8L8TfEao2QHJycOgk QW7xvTZkXDsiLu3wsHxg jWveUK6qDUPuuear KGSiaZ7rQHMwbHQkyOzn DQ9xFLSiflkqy808BrAd ZTP8WZUjxBFoX3QrjT7f EnAkPMExUCLtB2Hn sBXmDJspH287RMujJvD8 ZVGdboSgS1QpOLWjtGxt NjB3q9I6Pk04HUJKAPVb czwvdGQ+PHRkIHN0 fTpfPTpqUNCttM9sFRUi D9g6PhZgVqZ7XPwhB9Av ACMahxqnRu08jN6yBpCy AgP6LDyxJ3YdhaC3 ZWGyuQWsRMwcYLK3V21p p9S1DGZcDNZmSQN6eXY4 aR7opFeiuosisYWfdFnf dmVydGljYWwtYWxp F878RPOpnTliVx2hoQW0 B6GjIkq8LGAayImcZQ3o nNGuZLrhCk3ywTdthAsc WE7sNDPakxucJYUu xD4zRETujMIhsPhhWT4q WKAwonrzb576WqXaHXZ0 EUVonGXoK4DldY5vBbLv BWFkBABtJ5YaqBEx ZVqmJ452TLrfTmI6BTKu fbZiF5RrIVGfiMjcKbC3 g8O4Ii9LsRF3nRX6j7J1 N4FvqXJmBLJ9JHB9 niunhxl0A9EcUgslmYB+ EX15ELToXW14zSSkdSYg q8plpEp3SwEzYLXyJIK8 zMvtOFrir8GaWAWr Z53mgJIbf5W4ZDDbiTtd rJRlZoZdzWC4iG3aLQdd yjsha4bjgigqTpnye4fw zy68qW40G26oHGsj ZHRoPSIzMCUiIHZhbGln zp9dlY7xVl4+PGNvbCB3 tCS6tD5rIdSkTwD6TUae G683NlCzxDImQwgg v0kmc6cuqQe0BhInKBKd esKruFifLXT1c8UuRs58 Y34nIJzoPPCyNCAxAHPp TDWkfFxfch8dgB4f Ii8+TM2jq6vghl61dQ28 dHI+ZQOyPVE7rCozFPri XAJmtQ3vFVjuVzO1JIEb YmVgbE03mKNlHFnl Zc7plAflmLgxZZ5uKETo xqfny793LtMtg8lmGJBi lTBjENlnQMW4U62bo8D0 TYWgBGHnXLH0yMV2 oW5nnCrmzvfmuGPovCqd enMtwXwxKZuzSNduZ307 QCArfRfgAgQgrDQhY3xr zeEXDP7wUzbroZP+ CNArBOQ8kCicESulQQCo xI1yLUIdF4m0XcEnXlK0 IWisM7YsqpV2XHBpySIs GDJjkFLHxF5wxnbz l1ekarrpXpGnRZJxANg1 EIl2VJVfcVtrRmFoYWV9 UzR5IWH9gBTpoJ4qgNup bspnvD7bFgs+RklO OjwvdGQ+BCJfQTA9xQid ZSrvWYJxwB8iDMPdV8t1 CrTaIfB3UWjbD2RpwgZ4 IGJvbGQgMTBwdCBU kV6ciznwz5mkwzzrAvLn RURjOHf1QNw7UXIabCcp QrXiTRH5BjZ5XDU4tJHh hM7isZksdowipH1d Oyc+TVJOOjwvdGQ+PHRk GQD6kNzqYKvkFOQomY8z FQMwJ3c9VbGaXnK9HFcf N6KdsuQ2WNSflRNa DNHnpKYYrW7kpqvar6fd vbbeHfEuXZUyTTh0XWi0 HAVylJgqCzZcUDK3SpF5 BTE0zXCemY9eiPbo ewiitM1iZpz+IBP0ROS0 FF20JW33H7LwBxoqjGIz bGU+PHRhYmxlIHdpZHRo PScxMDAlJyBzdHls ZT0n (more content not included)... Normal [facility] Main OR Intraoperative Recor don 03-01-2022 Main OR Intraoperative Record IntraOp Document Type FT Summary Primary Physician: Aravind SU MD Finalized Date/Time: 03/01/22 13:45:03 Pt. Name: HAKEEM STARK/Sex: 1955 Male Med Rec #: [id number] Physician: Aravind SU MD Financial #: [id number] Pt. Type: A Room/Bed: Admit/Disch: 02/24/22 10:13:52 - 02/24/22 17:35:00 Institution: Case Times FT Entry 1 Patient Times In Room 02/24/22 14:58:00 Out Room 02/24/22 15:47:00 Procedure Times Start 02/24/22 15:14:00 Stop 02/24/22 15:43:00 Anesthesia Times Start 02/24/22 14:58:00 Stop 02/24/22 15:47:00 Last Modified By: Kenyetta Ferrara RN 02/24/22 15:51:24 General Comments: 03/01/22 chart opened for charge review per Tammy Ruth RN. [place] Case Attendance FT Entry 1 Entry 2 Entry 3 Case Attendee Fabio Ying CRNA, MD, Aravind Ferrara RN, Kenyetta Ferguson Role Performed MAO Surgeon - Primary Line Service Attendant - Primary Time In 02/24/22 14:58:00 02/24/22 14:58:00 02/24/22 14:58:00 Time Out 02/24/22 15:47:00 02/24/22 15:47:00 02/24/22 15:47:00 Procedure EXTRACORPOREAL SHOCK EXTRACORPOREAL SHOCK EXTRACORPOREAL SHOCK WAVE LITHOTRIPSY(Left) WAVE LITHOTRIPSY(Left) WAVE LITHOTRIPSY(Left) Comments supervised by all Last Modified By: Kenyetta Ferrara RN, RN, Kenyetta Keane RN 02/24/22 15:51:26 02/24/22 15:51:26 02/24/22 15:51:26 General [...] Time Out Fabio Ying CRNA, Given Participants ЮЛИЯ MORALES, Aravind Edwards, Josias TOLBERT, Kenyetta Ferguson Time Out Complete 02/24/22 15:09:00 Outcomes Met? Yes Last Modified By: Kenyetta Ferrara RN 02/24/22 15:12:40 Post-Care Text: The patient is free from signs and symptoms of injury caused by extraneous objects General Comments: jeff duenas Allergy Information FT Pre-Care Text: Verifies allergies [...] Under Head Large (more content not included)... [facility] Lab Reportson 02-28-2022 Lab Reports [id number] #1.00CD:127 [facility] RAD - MISCon 02-28-2022 RAD - MISC [id number] #1.00CD:127 [facility] Consent for Anesthesiaon Consent for Anesthesia [id number] 6#1.00CD:127 [facility] Discharge Instructionson Discharge Instructions [id number] 2#1.00CD:127 [facility] IntraOperative Documentson 0 02-25-2022 IntraOperative Documents [id number] #1.00CD:127 [facility] IntraOperative Documents [id number] 5#1.00CD:127 [facility] Outside Recordson 02-25-2022 Outside Records [id number] 5#1.00CD:127 [facility] Preoperative Documentson Preoperative Documents [id number] 9#1.00CD:127 [facility] Preoperative Documents [id number] 8#1.00CD:127 [facility] Prescriptions/Work Noteson 0 02-25-2022 Prescriptions/Work Notes [id number] 9#1.00CD:127 [facility] CHEMISTRYOrdered By: Lab ROP User on 02-24-2022 Glucose [Mass/Vol] 119 mg/dL High 55 - 99 mg/dL FTM C POC Subsection Comment on above: Result Comment: Isha priti Meter POC Device SN [id number] Invalid Interpretation Code [facility] [place] POC Subsection POC User ID [id number] Invalid Interpretation Code [facility] [place] POC Subsection POC Username IQRA DODSON Invalid Interpretation Code [facility] [place] POC Subsection Capillary Glucose POCon 02-06 Glucose [Mass/Vol] 119 mg/dL High 55-99 [facility] Comment on above: Result Comment: Isha priti Meter Performed By: #### 2 [id number] ####[facility] [address] [place] [address] Consent for Procedure/Surger yon 02-24-2022 Consent for Procedure/Surgery [id number] #1.00CD:127 Normal [facility] Consent for Treatmenton 02-06 Consent for Treatment [id number] #1.00CD:127 Normal [facility] Inpatient Patient Summaryon 02-24-2022 Inpatient Patient Summary [place] [id number] [facility] Clinical Discharge Instructions PERSON INFORMATION Name: HAKEEM STARK PHYSICIANS Admitting Physician: Aravind SU MD Attending Physician: Aravind SU MD PCP: MILDRED CORRAL CNP Discharge Diagnosis: Comment: PATIENT EDUCATION INFORMATION Instructions: Lithotripsy, Care After; Whcm-Veqw-mq Utereroscopy,Lithotr ipsy, Stone Extraction, Stent Placement (Custom); Post Op Patient Instructions - FT (Custom) (CUSTOM) Medication Leaflets: Follow up: With: Address: When: [facility]ravind SU [facility], [address], [place] [address] Business (1) Comments: Office will call for [...] Mouth every day. Refills: 8. Comment: Velma Juarez [facility] Main OR PACU I Recordon 02-06 Main OR PACU I Record PACU Phase I Document Type FT Summary Primary Physician: Aravind SU MD Finalized Date/Time: 02/24/22 16:26:47 Pt. Name: HAKEEM STARK /Sex: 1955 Male Med Rec #: [id number] Physician: Aravind SU MD Financial #: [id number] Pt. Type: A Room/Bed: AS29 Admit/Disch: 02/24/22 10:13:52 - Institution: Case Times [...] By: JAZIEL PICKARD RN 02/24/22 16:26 Normal [facility] Main OR PACU II Recordon Main OR PACU II Record PACU Phase II Document Type FT Summary Primary Physician: Aravind SU MD Finalized Date/Time: 02/24/22 17:43:27 Pt. Name: MIHAKEEM/Sex: 1955 Male Med Rec #: [id number] Physician: Aravind SU MD Financial #: [id number] Pt. Type: A Room/Bed: [place] [address] Admit/Disch: 02/24/22 10:13:52 - 02/24/22 17:35:00 Institution: [...] By: Ally Petty RN 02/24/22 17:43 Normal [facility] Main OR Preoperative Recordo n 02-24-2022 Main OR Preoperative Record PreOp Document Type FT Summary Primary Physician: Aravind SU MD Finalized Date/Time: 02/24/22 15:11:17 Pt. Name: HAKEEM STARK/Sex: 1955 Male Med Rec #: [id number] Physician: Aravind SU MD Financial #: [id number] Pt. Type: A Room/Bed: [place] [address] Admit/Disch: 02/24/22 10:13:52 - Institution: Case Times [...] By: Kenyetta Ferrara RN 02/24/22 15:11 Normal [facility] Monitor Recordon 02-24-2022 Monitor Record [id number] 3#1.00CD:127 Normal [facility] Monitor Record [id number] 3#1.00CD:127 Normal [facility] Operative Reporton 2 Operative Report Patient: HAKEEM [...] the operating room and placed on the [employer] litho-star electromagnetic lithotripsy treatment table in the [...] The patient was then transferred to a gurney bed and wheeled to PACU in stable condition.. Anesthesia type: General. Normal [facility] Comment on above: Result Comment: Elec tronically Signed By: Aravind SU MD\.br\Date and Time Signed: 02/24/22 15:52 EDT Outpatient Surgery Discharge Instructionon 02-24-2022 Outpatient Surgery Discharge Instruction [place] [id number] Patient Discharge Instructions PERSON INFORMATION Name: HAKEEM [...] THE NEAREST EMERGENCY ROOM OR CALL 911 IMI JOHN E, have received the attached patient education materials/instructio ns and have verbalized understanding: May we do a follow up call? Yes No I was present when discharge instructions were given Patient Signature Date Clinican/Nurse Signature Date Follow up: With: Address: When: [facility], [address] [place] [address] Business (1) Comments: Office will call for next step Pharmacy Information: You may receive a survey from [employer] asking you to rate your care experience. Your feedback is important and will help us understand what we do well and how we can improve the quality of care we provide to you, your loved ones and our community. It?s an honor to serve you. Thank you for choosing [facility] HERE ARE THE MEDICATION CHANGES [...] these instructions at home: Medicines ? Take yxph-mbg-pxgjmod and prescription medicines only as told by [...] resume norm (more content not included)... Normal [facility] Outside Recordson 02-24-2022 Outside Records [id number] #1.00CD:127 Normal [facility] Outside Records [id number] #1.00CD:127 Normal Larry [facility] Patient Education - Texton 0 [...] these instructions at home: Medicines ? Take kwao-hck-ixljrmy and prescription medicines only as told by [...] help ri (more content not included)... Normal Juarez [facility] Progress Note-Physicianon Progress Note-Physician Patient: HAKEEM STARK Age: 66 years Sex: Male : 1955 Associated Diagnoses: None Author: Parker Fields Jr., DO Postoperative Information Post Operative Note: Post Anesthesia Care Unit. Anesthetic utilized: General. Health Status Allergies: Allergic Reactions (Selected) No Known Allergies Problem list: All Problems Arthritis / SNOMED CT 8059936 / Confirmed Degenerative lumbar disc / SNOMED CT 31907521 / Confirmed Essential hypertension / SNOMED CT 31206400 / Confirmed Kidney stone / SNOMED CT 341108111 / Confirmed Mixed hyperlipidemia / SNOMED CT 525525409 / Confirmed Smoker / SNOMED CT 105939917 / Confirmed Added secondary to documentation in Social History. Type 2 diabetes mellitus / SNOMED CT 037541544 / Confirmed Physical Examination Vital Signs 02/24/2022 [...] noted. Plan Transfer/ Discharge: Condition stable. Normal [facility] Comment on above: Result Comment: Elec tronically [...] Daily, # 30 cap(s), Refills(s) 8, Pharmacy: [facility], 180, cm, 01/17/22 9:28:00 EDT, [...] Father High cholesterol Mother Procedure history: Colonoscopy ([id number]). Social History Social & Psychosocial Habits Alcohol [...] Dosing 180.3 cm Weight Dosing 106.0 kg [place] Body Weight Calculated 75.3 kg BSA Measured 2.3 m2 Body Mass Index Measured 32.59 kg/m2 Weight Measured 106 kg Weight Measured 106 kg Airway: Mallampati classification: II (soft palate, fauces, uvula visible). Respiratory: Lungs are clear to auscultation. Cardiovascular: Regular rhythm. Review / Management Results review: Lab results 02/24/2022 10:56 EDT Glucose Cap 119 mg/dL HI POC Device SN [id number] POC User ID [id number] POC Username IQRA DODSON . Chest x-ray results * Final Report [...] status: A (more content not included)... Normal [facility] Comment on above: Result Comment: Elec tronically [...] MD Transcribed by: BARBARA Technologist: KHLOE Normal [facility] XR KUB 1 VIEWon 02-24-2022 XR KUB [...] by: YAIMA NOONAN Date: 2022-02-24 07:22 Normal [facility] CBC AUTO DIFFon 02-21-2022 BASO # 0.1 103/ul Normal 0.0-0.1 [facility] Comment on above: Performed By: #### A 1C #### [facility] [address] [address] [address] Gigi To Basophils/100 WBC (Bld) 0.6 % Normal 0.2-2.0 [facility] Comment on above: Performed By: #### A 1C #### [facility] [address] [place] [address] Dr. Gigi To EO # 0.2 103/ul Normal 0.0-0.7 [facility] Comment on above: Performed By: #### A 1C #### [facility] [address] [place] [address] Dr. Gigi To Eosinophils/100 WBC (Bld) 1.9 % Normal 0.9-7.0 [facility] Comment on above: Performed By: #### A 1C #### [facility] [address] [place] [address] Dr. Gigi To Erythrocyte distribution width (RBC) [Ratio] 14.3 % Normal 11.0-15.0 [facility] Comment on above: Performed By: #### A 1C #### [facility] [address] [place] [address] Dr. Gigi To Hematocrit (Bld) [Volume fraction] 40.4 % Critically low 42.0-54.0 [facility] Comment on above: Performed By: #### A 1C #### [facility] [address] [place] [address] Dr. Gigi To Hemoglobin (Bld) [Mass/Vol] 13.4 g/dL Critically low 14.0-18.0 [facility] Comment on above: Performed By: #### A 1C #### [facility] [address] [place] [address] Dr. Gigi To IG # 0.02 10e3/ul Normal 0.00-0.03 [facility] Comment on above: Performed By: #### A 1C #### [facility] [address] [place] [address] Dr. Gigi To IG % 0.3 % Normal 0.0-0.5 [facility] Comment on above: Performed By: #### A 1C #### [facility] [address] [place] [address] Dr. Gigi To LYMPH # 2.4 103/ul Normal 1.2-3.8 [facility] Comment on above: Performed By: #### A 1C #### [facility] [address] [place] [address] Dr. Gigi To Lymphocytes/100 WBC (Bld) 30.7 % Normal 20.5-60.0 [facility] Comment on above: Performed By: #### A 1C #### [facility] [address] [place] [address] Dr. Gigi To MANUAL DIFF REQ NO Normal [facility] Comment on above: Performed By: #### A 1C #### [facility] [address] [place] [address] Dr. Gigi To MCH (RBC) [Entitic mass] 31.8 pg Normal 25.9-34.0 [facility] Comment on above: Performed By: #### A 1C #### [facility] [address] [place] [address] Dr. Gigi To MCHC (RBC) [Mass/Vol] 33.2 g/dL Normal 29.9-35.2 [facility] Comment on above: Performed By: #### A 1C #### [facility] [address] [place] [address] Dr. Gigi To MCV (RBC) [Entitic vol] 95.7 fL Critically high 80.0-94.0 [facility] Comment on above: Performed By: #### A 1C #### [facility] [address] [place] [address] Dr. Gigi To MONO # 0.8 103/ul Normal 0.3-0.8 [facility] Comment on above: Performed By: #### A 1C #### [facility] [address] [place] [address] Dr. Gigi To Monocytes/100 WBC (Bld) 10.0 % Normal 1.7-12.0 [facility] Comment on above: Performed By: #### A 1C #### [facility] [address] [place] [address] Dr. Gigi To NEUT # 4.4 103/ul Normal 1.4-6.5 [facility] Comment on above: Performed By: #### A 1C #### [facility] [address] [place] [address] Dr. Gigi To Neutrophils/100 WBC (Bld) 56.5 % Normal 43.0-75.0 [facility] Comment on above: Performed By: #### A 1C #### [facility] [address] [place] [address] Dr. Gigi To Platelet mean volume (Bld) [Entitic vol] 9.1 fL Critically low 9.5-13.5 [facility] Comment on above: Performed By: #### A 1C #### [facility] [address] [place] [address] Dr. Gigi To PLT 256 103/ul Normal 150-450 [facility] Comment on above: Performed By: #### A 1C #### [facility] [address] [place] [address] Dr. Gigi To RBC 4.22 106/ul Critically low 4.70-6.10 [facility] Comment on above: Performed By: #### A 1C #### [facility] [address] [place] [address] Dr. Gigi To WBC 7.8 103/ul Normal 4.0-11.0 [facility] Comment on above: Performed By: #### A 1C #### [facility] [address] [place] [address] Dr. Gigi To PROF CHEM 8 (BAS METB)on Anion gap [Moles/Vol] 13.6 mmol/L Normal [facility] Comment on above: Performed By: #### B MP #### [facility] [address] [place] [address] Dr. Gigi To Calcium [Mass/Vol] 9.2 mg/dL Normal 8.5-10.1 [facility] Comment on above: Performed By: #### B MP #### [facility] [address] [address] [address] Gigi To Chloride [Moles/Vol] 104 mmol/L Normal 98-107 [facility] Comment on above: Performed By: #### B MP #### [facility] [address] [address] [address] Gigi To CO2 [Moles/Vol] 26.9 mmol/L Normal 21.0-32.0 [facility] Comment on above: Performed By: #### B MP #### [facility] [address] [address] [address] Gigi To Creatinine [Mass/Vol] 0.95 mg/dL Normal 0.70-1.30 [facility] Comment on above: Performed By: #### B MP #### [facility] [address] [place] [address] Dr. Gigi To EGFR-AF YEMENI >60 Normal >=60 [facility] Comment on above: Performed By: #### B MP #### [facility] [address] [address] [address] Gigi To EGFR-NON AF YEMENI >60 Normal >=60 [facility] Comment on above: Performed By: #### B MP #### [facility] [address] [place] [address] Dr. Gigi To Glucose [Mass/Vol] 121 mg/dL Critically high 74-106 [facility] Comment on above: Performed By: #### B MP #### [facility] [address] [address] [address] Gigi To Potassium [Moles/Vol] 4.5 mmol/L Normal 3.5-5.1 [facility] Comment on above: Performed By: #### B MP #### [facility] [address] [place] [address] Dr. Gigi To Sodium [Moles/Vol] 140 mmol/L Normal 136-145 [facility] Comment on above: Performed By: #### B MP #### [facility] [address] [place] [address] Dr. Gigi To Urea nitrogen [Mass/Vol] 15.0 mg/dL Normal 7.0-18.0 [facility] Comment on above: Performed By: #### B MP #### [facility] [address] [place] [address] Dr. Gigi To Urea nitrogen/Creatinine [Mass ratio] 15.8 mg/mg Normal [facility] Comment on above: Performed By: #### B MP #### [facility] [address] [place] [address] Dr. Gigi To PROTIMEon 02-21-2022 INR Coag (PPP) [Relative time] 0.99 {INR} Normal [facility] Comment on above: Performed By: #### A 1C #### [facility] [address] [place] [address] Dr. Gigi To INR GUIDELINES SEE BELOW Normal [facility] Comment on above: Result Comment: ASHLEY RED INR: 2.0 - 3.0 CONDITIONS NOT LISTED BELOW 2.5 - 3.5 FOR PROSTHETIC HEART VALVE REPLACEMENT 2.5 - 3.5 RECURRENT THROMBOSIS Performed By: #### A 1C #### [facility] [address] [place] [address] Dr. Gigi To PT Coag (PPP) [Time] 10.7 s Normal 9.0-11.6 [facility] Comment on above: Performed By: #### A 1C #### [facility] [address] [place] [address] Dr. Gigi To PTTon 02-21-2022 aPTT Coag (Bld) [Time] 26.2 s Normal 22.3-36.2 [facility] Comment on above: Performed By: #### A 1C #### [facility] [address] [place] [address] Dr. Gigi To Formson 02-16-2022 Forms [id number] #1.00CD:127 Normal [facility] Lab Reportson 01-20-2022 Lab Reports [id number]# 1.00CD:127 Normal [facility] Physician Referralon 022 Physician Referral [id number] #1.00CD:127 Normal [facility] Ambulatory Visit Summaryon 0 01-17-2022 Ambulatory Visit Summary HAKEEM STARK :1955 Visit Date:01/17/2022 Ambulatory Visit Instructions Your Diagnosis BPH with urinary obstruction Kidney stone Other obstructive and reflux uropathy Tests Performed Urnls Dip Stick Auto w/o Microscopy POC 63908 Your Care Team Attending Physician - Aravind SU MD Primary Care Physician - MILDRED CORRAL CNP Referring Physician - MILDRED CORRAL CNP This Is Your Medications List tamsulosin [...] Following Appointments Follow Up with ЮЛИЯ MORALES, Aravind Edwards, VINI When: Why: Will schedule Left ESWL Where: [facility] [address] , [place] [phone] Medications What How Much When Instructions New tamsulosin (tamsulosin 0.4 mg Cap) 1 Capsules By Mouth Every day Refills: 8 Pickup at [facility] Unchanged aspirin (Aspirin 81 mg [...] physician if questions or concerns Pharmacy Information [facility]: [address] [place], [place] [id number] [phone] Test Results Urnls Dip Stick Auto w/o Microscopy POC 91312 (01/17/2022) Bilirubin Urine Dipstick - Negative Blood Urine Dipstick - Trace-lysed Glucose Urine Dipstick - Negative Ketones Urine Dipstick - Negative Leukocytes Urine Dipstick - Negative Nitrite Urine Dipstick - Negative Protein Urine Dipstick - Negative Specific [place] Urine Dipstick - 1.025 Urine Appearance Urine [...] can be (more content not included)... Normal [facility] Patient Educationon 01-18-20 Patient Education Nutrition Calorie [...] You could (more content not included)... Normal [facility] Urology Office/Clinic Noteon 01-17-2022 Urology Office/Clinic Note [...] When Contact Information ЮЛИЯ MORALES, Aravind Edwards, [facility] [address], [place] [address]- [phone] Additional Instructions: Will schedule Left ESWL Patient Education Calorie Counting for Weight Loss Benign Prostatic Hyperplasia Kidney Stones, Wots-hk-[id number] IJanee, personally scribed for Dr. Su on 01/17/2022 10:00:25. . Documentation recorded by the scribekristy, accurately reflects the services(s) I performed and [...] Oral, Francis (more content not included)... Normal [facility] Comment on above: Result Comment: Elec tronically Signed By: Aravind SU MD\.br\Date and Time Signed: 01/17/22 10:02 EDT\.br\Electronically Co-Signed By: Janee Ojeda\.br\Date and Time Co-Signed: 01/17/22 10:00 EDT Vital Signs Date Time Vital Sign Value Performing Clinician Facility 03-25-2024 07:46-0400 Body height 180.34 cm Mildred Corral Work Phone: [facility] 03-25-2024 07:46-0400 Body weight 104.32 kg Mildred Corral Work Phone: [facility] 02-24-2022 17:16-0400 Blood Pressure Location Aravind SU [facility] 02-24-2022 17:16-0400 BP/Pulse Patient Position Aravind SU [facility] 02-24-2022 17:16-0400 Diastolic blood pressure 80 mm[Hg] Aravind SU [facility] 02-24-2022 17:16-0400 Heart rate 85 /min Aravind [facility] 02-24-2022 17:16-0400 Mean blood pressure 103 mm[Hg] Aravind SU [facility] 02-24-2022 17:16-0400 Respiratory rate 18 /min Aravind SU [facility] 02-24-2022 17:16-0400 SaO2% (BldA) [Mass fraction] 97 % Aravind SU [facility] 02-24-2022 17:16-0400 Systolic blood pressure 150 mm[Hg] Aravind SU [facility] 02-24-2022 16:20-0400 Blood Pressure Location Aravind [employer]Fly [facility] 02-24-2022 16:20-0400 Diastolic blood pressure 90 mm[Hg] Aravind [facility]Fly [facility] 02-24-2022 16:20-0400 Heart rate 84 /min Aravind SU [facility] 02-24-2022 16:20-0400 Respiratory rate 18 /min Aravind SU [facility] 02-24-2022 16:20-0400 SaO2% (BldA) [Mass fraction] 96 % Aravind SU [facility] 02-24-2022 16:20-0400 Systolic blood pressure 150 mm[Hg] Aravind SU [facility] 02-24-2022 16:13-0400 Body temperature 97.34 [degF] Aravind SU [facility] 02-24-2022 16:13-0400 Diastolic blood pressure 95 mm[Hg] Aravind SU [facility] 02-24-2022 16:13-0400 Heart rate 94 /min Aravind SU [facility] 02-24-2022 16:13-0400 Respiratory rate 15 /min Aravind SU [facility] 02-24-2022 16:13-0400 SaO2% (BldA) [Mass fraction] 95 % Aravind SU [facility] 02-24-2022 16:13-0400 Systolic blood pressure 154 mm[Hg] Aravind SU [facility] 02-24-2022 16:00-0400 Respiratory rate 24 /min Aravind SU [facility] 02-24-2022 15:55-0400 Respiratory rate 18 /min Aravind SU [facility] 02-24-2022 15:48-0400 Body temperature 97.16 [degF] Aravind [employer]Fly [facility] 02-24-2022 15:45-0400 Respiratory rate 1 /min Aravind SU [facility] 02-24-2022 10:49-0400 Blood Pressure Location Aravind SU [facility] 02-24-2022 10:49-0400 Mean blood pressure 100 mm[Hg] Aravind SU [facility] 02-24-2022 10:47-0400 Body temperature 98.06 [degF] Aravind SU [facility] 02-24-2022 10:47-0400 Mean blood pressure 115 mm[Hg] Aravind SU [facility] 02-24-2022 10:47-0400 Heart rate 96 /min Aravind SU [facility] Encounters Encounter Date Encounter Type Care Provider Facility Start: 03-25-2024 End: 03-25-2024 Patient encounter procedure Mildred Shayna Work Phone: [facility] Work Phone: Start: 03-25-2024 End: 03-25-2024 ambulatory Mildred Alexa Corral Work Phone: [facility] Work Phone: Start: 12-26-2022 ambulatory PATTI CORRAL Facil ity:[facility] Start: 12-02-2022 End: 12-02-2022 ambulatory SARTHAK STEPHENS . Facility:[facility] Start: 11-05-2022 End: 11-06-2022 ambulatory PATTI CORRAL Facility:[facility] Start: 03-19-2022 End: 03-20-2022 ambulatory PATTI CORRAL Facility:[facility] Start: 02-25-2022 Encounter for other preprocedural examination DR ARAVIND SU . [facility] Start: 02-25-2022 Encounter for preprocedural cardiovascular examination DR ARAVIND SU . [facility] Start: 02-25-2022 Encounter for preprocedural laboratory examination DR ARAVIND SU . [facility] Start: 02-24-2022 End: 02-24-2022 ambulatory MD Aravind SU Facility:[facility] Start: 02-24-2022 End: 02-24-2022 Admission to same day surgery center Aravind SU [facility] Start: 02-24-2022 End: 02-24-[address] ARAVIND SU . Facility:[facility] Start: 02-21-2022 End: 02-22-[address] ARAVIND SU . Facility:[facility] Start: 02-21-2022 End: 02-22-2022 Encounter for preprocedural laboratory examination DR ARAVIND SU . 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 Gigi To Start: 02-24-2022 Extracorporeal shock wave lithotripsy of calculus of kidney Aravind SU Colonoscopy Aravind SU Immunizations Immunization Date Immunization Notes Care Provider Tari lujan 03-15-2021 SARS-CoV-2 (COVID-19 ) mRNA BNT-162b2 vax Aravind SU [facility] 02-27-2021 SARS-CoV-2 (COVID-19 ) mRNA BNT-162b2 vax Aravind SU [facility] Payers Date Payer Category Payer Self-pay 2024 Medicare [id number] 1961 Private Health Insurance [id number] 1955 Unknown [id number] 2.16.8 [id number] 1955 Unknown [id number] 2.16.8 [id number] 1955 Unknown [id number] 2.16.8 [id number] 1955 Unknown [id number] 2.16.84 [id number] 1955 Unknown [id number] 2.16.84 [id number] 1955 Unknown [id number] 2.16.84 [id number] 1955 Unknown [id number] 2.16.84 [id number] 1955 Unknown [id number] 2.16.84 [id number] 1955 Unknown [id number] 2.16.84 [id number] Unknown [id number] 2.16.8 [id number] Social History Date Type Detail Facility Tobacco Unknown if ever smoked [facility] Comment on above: 1 1/2 ppd cigarettes Sex Assigned At Male [facility] Start: 1955 Sex Assigned At Male [facility] History and physical note 05-23-2022 Note Date & Type Note Facility 05-23-2022 Note [id number]#1.00CD:127 [facility] Hospital Discharge instructions 02-24-2022 Note Date & [...] Follow these instructions at home: Medicines Take [id number] and prescription medicines only as told by [...] 10/14/2008 Document Revised: 01/06/2020 Document Reviewed: 08/16/2017 [employer] Patient Education 2020 [employer]. 02/24/2022 16:14:46 Hjrt-[id number]-rm Utereroscopy,Lithotripsy, Stone Extraction, Stent Placement (Custom) [facility] [place], [place] Post-operative Instructions for Ureteroscopy, Laser Lithotripsy, [...] other reasons. 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 [...] arrange for your post-operative appointment (with XRAY) [phone] 02/24/2022 16:12:34 Post Op Patient Instructions - FT (Custom) (CUSTOM) Follow Up Care 02/24/2022 09:52:22 With:Aravind SU Address: [facility] [address], [place] [address]- Business (1) When: Unknown Comments:Office will call for next step [facility] Evaluation + Plan note 02-24-2022 Note Date & Type Note Facility 02-24-2022 Evaluation + Plan note Extrac rita from: Title:Post-anesthesia - General Author:Parker Ramirez DO Date:02/24/22 Plan Transfer/ Discharge: Condition stable. Extracted from: Title:Pre-anesthesia - Adult Author:Parker Fields Jr., DO Date:02/24/22 Plan [place] [employer] (ASA) physical status classification: Class III. Anesthetic Preoperative Plan Anesthesia: General. . Anesthetic plan, risks, benefits, and alternatives discussed with the patient and/or family. Patient verbalized understanding. Adverse reactions, complications, and alternatives discujssed. Consent signed and on chart.. [facility] History and physical note 02-24-2022 Note Date & Type Note Facility 02-24-2022 Note [id number] #1.00CD:127 [facility] Evaluation note Note Date & Type Note Facility Evaluation note No assessment information availa [facility] Work Phone: Hospital course Narrative Note Date & Type Note Facility Hospital course Narrative No data available for this section [facility] Summary Purpose Family History No Family History Records FoundNo Family History Records FoundNo Family History Records Found Advance Directives No Advanced Directives Records Found Advance Directive Response Recorded Date/ Time Advance Directives No March 06 2:20pm Chief Complaint and Reason for Visit Chief Complaint r91.8 Additional Source Comments (unrecognized sect ion and content) No Status Records FoundNo Status Records FoundNo Status Records Found INFORMATION SOURCE (unrecogn ized section and content) DATE CREATED AUTHOR 08/08/2022 [facility] DATE CREATED AUTHOR AUTHOR'S ORGANIZ ATION 12/23/2022 [facility] DATE CREATED AUTHOR AUTHOR'S ORGANIZ ATION 03/31/2024 [facility] Care Teams (unrecognized sec tion and content) Team Status: Active Member Role Status Dates Mildred Corral Primary Care Provider Active Team Status: Inactive Member Role Status Dates Mildred Corral Primary Care Provide r, Attending Provider Active Start: March 25, 2024 End: March 25, 2024 Goals (unrecognized section and content) Goals may be documented in a n alternate section FOR RECORDS PERTAINING TO PATIENTS WHO ARE [...] BE BASED ON THE PRIMARY CLINICAL RECORDS. [employer] provides no warranty or guarantee of the accuracy or completeness of information in this document.
[2024-05-06 07:53] LABS: Basophils Absolute Auto 0.1 10^3/uL (0.0-0.1); Basophils Percent Auto 0.9 % (0.2-2.0); Eosinophils Absolute Auto 0.3 10^3/uL (0.0-0.7); Eosinophils Percent Auto 4.2 % (0.9-7.0); Hematocrit 41.2 % (42.0-54.0); Hemoglobin 13.6 g/dL (14.0-18.0); Immature Granulocytes Abs Auto 0.01 10^3/uL (0.00-0.03); Immature Granulocytes Pct Auto 0.1 % (0.0-0.5); Lymphocytes Absolute Auto 2.7 10^3/uL (1.2-3.8); Lymphocytes Percent Auto 34.7 % (20.5-60.0); Mean Corpuscular Hemoglobin 32.1 pg (25.9-34.0); Mean Corpuscular Volume 97.2 fL (80.0-94.0); Mean Platelet Volume 8.7 fL (9.5-13.5); Monocytes Absolute Auto 0.8 10^3/uL (0.3-0.8); Neutrophils Percent Auto 50.1 % (43.0-75.0); Platelet Count 268 10^3/uL (150-450); Red Blood Count 4.24 10^6/uL (4.70-6.10); Red Cell Distribution Width 14.5 % (11.0-15.0); White Blood Count 7.9 10^3/uL (4.0-11.0)
[2024-05-06 07:54] LABS: Bilirubin Urine NEGATIVE (NEGATIVE); Blood Urine TRACE-I (NEGATIVE); Clarity Urine CLEAR (CLEAR); Color Urine YELLOW (YELLOW); Glucose Urine UA NEGATIVE (NEGATIVE); Ketones Urine NEGATIVE (NEGATIVE); Leukocyte Esterase Urine TRACE (NEGATIVE); Nitrite Urine NEGATIVE (NEGATIVE); Protein Urine NEGATIVE (NEG/TRACE); Specific Gravity Urine >=1.030 (1.005-1.025); Urine Microscopic Indicated YES; Urobilinogen Urine 0.2 EU/dL (0.2-1.0); pH Urine 5.5 (5.0-9.0)
[2024-05-06 08:01] LABS: Creatinine Urine Random 232.03 mg/dL (20.00-300.00); Microalbum Creatinine Ratio Ur 14.6 mg/g (0.0-29.9); Microalbumin Urine Random 3.4 mg/dL (<=30.0)
[2024-05-06 08:03] LABS: Estimated Average Glucose 120 mg/dL; Glycohemoglobin A1C 5.8 % (4.5-6.2)
[2024-05-06 08:10] LABS: Squamous Epithelial Cell Urine RARE #/LPF (NONE/RARE)
[2024-05-06 08:11] LABS: Mucus Urine NONE SEEN (NONE SEEN); RBC Urine 0-2 #/HPF (0-2)
[2024-05-06 08:14] LABS: Bacteria Urine TRACE #/HPF (NONE SEEN); Cast Seen? NONE SEEN #/LPF (NONE SEEN); Crystals Seen? None Seen #/HPF (None Seen)
[2024-05-06 09:01] LABS: Alanine Aminotransferase 28 U/L (16-63); Albumin Globulin Ratio 1.1; Albumin Level 3.7 g/dL (3.4-5.0); Alkaline Phosphatase 38 U/L (46-116); Anion Gap 15.2; Aspartate Amino Transferase 24 U/L (15-37); BUN Creatinine Ratio 18.7; Bilirubin Total 0.6 mg/dL (0.2-1.0); Calcium 9.6 mg/dL (8.5-10.1); Carbon Dioxide 25.2 mmol/L (21.0-32.0); Chloride 105 mmol/L (98-107); Chol HDL Ratio 3.8; Cholesterol 138 mg/dL (<=200); Estimated GFR (African America >60 (>=60); Estimated GFR (Non-African Ame >60 (>=60); Globulin 3.5 g/dL; Glucose 112 mg/dL (74-106); HDL Cholesterol 36 mg/dL (40-60); Potassium 4.4 mmol/L (3.5-5.1); Sodium 141 mmol/L (136-145); Total Protein 7.2 g/dL (6.4-8.2); Triglycerides 145 mg/dL (<=150)
[2024-05-07 04:07] LABS: PSA, Free 0.41 ng/mL; Prostate Specific Ag 2.5 ng/mL (0.0-4.0)
== END 2024-05-06 07:24 | disposition home or self-care (01) ==
LOC: LAB 07:25
PROVIDERS: PCP Nurse Practitioner; Visit Provider Nurse Practitioner
DX: N40.1 Benign prostatic hyperplasia with lower urinary tract symptoms (principal); E11.9 Type 2 diabetes mellitus without complications; Z72.0 Tobacco use; I10 Essential (primary) hypertension; Z12.5 Encounter for screening for malignant neoplasm of prostate; R39.12 Poor urinary stream
CPT/HCPCS: 36415; 80053; 80061; 81001; 82043; 82570; 83036; 84153; 84154; 85025

== ENCOUNTER 2024-08-12 07:26 | Outpatient (OUT) | payer OTHER, SELFPAY ==
--- NOTE | 2024-08-12 07:36 | CT_ITS ---
[address] [address] Patient Name: HAKEEM STARK MRN: [id number] date: 1955 Sex: M Assigned Patient Location: CT Current Patient Location: Accession/Order Number: [id number] Exam Date: 08/12/2024 07:42 Report Date: 08/13/2024 07:07 At the request of: DANN DAVISON Procedure: CT chest wo con EXAMINATION: CT chest wo con HISTORY: Lung Nodule, Abnormal CT COMPARISON: 01/02/2024 TECHNIQUE: Multi-planar CT images were created with IV contrast. Axial, Coronal, and Sagittal images. Dose reduction techniques were achieved by using automated exposure control and/or adjustment of mA and/or kV according to patient size and/or use of iterative reconstruction technique. FINDINGS: LUNGS: There is been interval development of a 7.7 mm solid nodule in the left upper lobe with ill-defined margins axial image 55. There is a stable lobular nodule measuring 1.4 x 0.9 cm in the right lower lobe marginating the major fissure. Additional subcentimeter nodules appear stable PLEURA: No mass, effusion, or pneumothorax. VASCULATURE: No abnormality. AMADOR: No mass or adenopathy. MEDIASTINUM: No mass or adenopathy. CARDIAC: No enlargement or pericardial effusion Coronary arteries: Heavy calcifications AORTA: No aortic aneurysm. Moderate calcific atherosclerosis CHEST WALL: No mass or axillary adenopathy. BONES: No bone lesion or fracture. LIMITED ABDOMEN: No suspicious findings. Limited images of the upper abdomen. OTHER: Negative. CT/CT chest wo con IMPRESSION: New 7.7 mm left upper lobe nodule is indeterminate. This is at the lower limits of detectability for PET scan. Consider short interval follow-up in 3 months Stable 1.4 cm right lower lobe nodule Electronically authenticated by: YAIMA NOONAN Date: 08/13/2024 07:07
--- OUTSIDE RECORDS SUMMARY | 2024-08-12 07:39 | XMS_ITS | CCD ---
Author Organization [facility] Care Team Providers Care Tapper Balance Wheel Screw Hole Name Role Phone MILDRED CORRAL Primary Care Physician AICHHOLZ, PRESCHOOL ASSISTANT MILDRED Admitting Unavailable AICHHOLZ, PRESCHOOL ASSISTANT MILDRED Attending Unavailable AICHHOLZ, PRESCHOOL ASSISTANT MILDRED Primary Care Unavailable AICHHOLZ, PRESCHOOL ASSISTANT MILDRED Consulting Unavailable AICHHOLZ, PRESCHOOL ASSISTANT MILDRED Admitting Unavailable AICHHOLZ, PRESCHOOL ASSISTANT MILDRED Attending Unavailable AICHHOLZ, PRESCHOOL ASSISTANT MILDRED Primary Care Unavailable AICHHOLZ, PRESCHOOL ASSISTANT MILDRED Consulting Unavailable PATRICK VAZQUEZ Consulting Unavailable AICHHOLZ, PRESCHOOL ASSISTANT MILDRED Admitting Unavailable AICHHOLZ, PRESCHOOL ASSISTANT MILDRED Attending Unavailable AICHHOLZ, PRESCHOOL ASSISTANT MILDRED Primary Care Unavailable REDMAN ., DR BALDERRAMA Admitting Unavailable REDMAN ., DR BALDERRAMA Attending Unavailable AICHHOLZ, PRESCHOOL ASSISTANT MILDRED Primary Care Unavailable REDMAN ., DR BALDERRAMA Consulting Unavailable SAAB, MARSHA Consulting Unavailable REDMAN ., DR BALDERRAMA Admitting Unavailable REDMAN ., DR BALDERRAMA Attending Unavailable AICHHOLZ, PRESCHOOL ASSISTANT MILDRED Primary Care Unavailable REDMAN ., DR BALDERRAMA Consulting Unavailable GLEN FLORA, DR YAIMA Hughes Consulting Unavailable LAURA NEGRON Consulting Unavailable TAMLYN ., SARTHAK Admitting Unavailable TAMLYN ., SARTHAK Attending Unavailable AICHHOLZ, PRESCHOOL ASSISTANT MILDRED Primary Care Unavailable TAMLYN ., SARTHAK Consulting Unavailable OFELIA BOONE Consulting Unavailable CARIDAD MILLER Consulting Unavailable Mildred Corral Primary Care Provider Mildred Corral Attending Provider [phone] SAMAN, MILDRED Attending Unavailable AICHHOLZ, MILDRED Attending Unavailable Moni Carpio Attending Unavailable Pavan Dailey MD Primary Care Provider Mildred Corral Primary Care Provider [phone] [facility] Attending Provider [phone] Moni Carpio Admitting Unavailable Moni Carpio Attending Unavailable Mildred Corral Primary Care Unavailable Mildred Corral Attending Unavailable Mildred Corral Primary Care Unavailable Mildred Corral Admitting Unavailable Medications Current Medications Medication Drug Class(es) Dates Sig (Normalized) Sig (Original) aspirin 81 mg oral tablet (1 source) Platelet Aggregation Inhibitor, Nonsteroidal Anti-inflammatory Drug Start: 01-17-2022 take 1 tablet by mouth once daily Aspirin 81 mg Tab-EC 81 mg, Oral, Daily, Refills(s) 0, Blood Thinner Start Date: 01/17/22 Status: Ordered atorvastatin 80 mg oral tablet (4 sources) HMG-CoA Reductase Inhibitor Start: 05-09-2024 End: 11-06-2024 take 1 tablet by mouth at bedtime atorvastatin (Lipitor) 80 MG tablet Indications: Type 2 diabetes mellitus without complication, without long-term current use of insulin (CMS/HCC) Take 1 tablet (80 mg) by mouth at bedtime 90 tablet 1 08/08/2024 11/06/2024 Active Start: 01-17-2022 take 1 tablet by khai th once daily atorvastatin 80 mg Tab 80 mg, Oral, Daily, Refills(s) 0, High cholesterol Start Date: 01/17/22 Status: Ordered Blood Glucose Monitoring Suppl (Accu-Chek Estela Plus) w/Device kit (2 sources) Blood Glucose Monitoring Suppl (Accu-Chek Estela Plus) w/Device kit Active lisinopril 10 mg oral tablet (3 sources) Angiotensin Converting Enzyme Inhibitor Start: 4 End: take 1 tablet by mouth once daily lisinopril 10 MG tablet Indications: Primary hypertension (CMS/HCC) Take 1 tablet (10 mg) by mouth Daily 90 tablet 1 05/09/2024 Active Start: 01-17-2022 take 1 tablet by khai th once daily lisinopril 10 mg Tab 10 mg, Oral, Daily, Refills(s) 0, High blood pressure Start Date: 01/17/22 Status: Ordered loperamide hydrochloride 2 mg oral tablet (2 sources) Opioid Agonist take 1 tablet by mouth once for diarrhea loperamide (Imodium A-D) 2 MG tablet Take 2 mg by mouth if needed for diarrhea Active meloxicam 15 mg oral tablet (1 source) Nonsteroidal Anti-inflammatory Drug Start: 01-18-20 meloxicam 15 mg oral tablet 200 mg, Oral, Daily, Refills(s) 0, Arthritis Start Date: 01/17/22 Status: Ordered 24 hr metFORMIN hydrochloride 750 mg extended release oral tablet (3 sources) Biguanide Start: 05-09-20 End: 08-07-20 take 1 tablet by mouth every twenty-four hours in the morning metFORMIN XR (Glucophage-XR) 750 MG 24 hr tablet Indications: Type 2 diabetes mellitus without complication, without long-term current use of insulin (CMS/HCC) , Controlled type 2 diabetes mellitus without complication, without long-term current use of insulin (CMS/HCC) Take 1 tablet (750 mg) by mouth in the morning and 1 tablet (750 mg) in the evening. Take before meals. 180 tablet 1 05/09/2024 Active Start: 01-17-2022 take 1 tablet by [facility] twice daily metformin 750 mg ER Tab 750 mg, Oral, BID, Refills(s) 0, High blood sugar Start Date: 01/17/22 Status: Ordered tamsulosin hydrochloride 0.4 mg oral capsule (3 sources) alpha-Adrenergic Antonia Start: 05-09-2024 take 1 capsule by mouth once daily tamsulosin (Flomax) 0.4 MG 24 hr capsule Take 0.4 mg by mouth Daily 05/09/2024 Active Start: 01-17-2022 take 1 capsule by [facility] once daily tamsulosin 0.4 mg Cap 0.4 mg = 1 cap(s), Oral, Daily, # 30 cap(s), Refills(s) 8, Pharmacy: [id number], 180, cm, 01/17/22 9:28:00 EDT, Height/Length Dosing, 112, kg, 01/17/22 9:28:00 EDT, Weight Dosing Start Date: 01/17/22 Status: Ordered Problems Active Problems Problem Classification Problem Date Documented Da te Episodic/Chronic Chronic obstructive pulmonary disease and bronchiectasis (2 sources) Centriacinar emphysema; 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: [Centrilobular emphysema] Onset: 06-03-2024 06-03-2024 Chronic Coronary atherosclerosis and other heart disease (2 sources) Coronary arteriosclerosis; 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: [Atherosclerotic heart disease of curyung coronary artery without angina pectoris] Onset: 12-04-2023 12-04-2023 Chronic Diabetes mellitus without complication (9 sources) Type 2 diabetes mellitus; 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: [Type 2 diabetes mellitus without complications] Onset: 11-05-2022 01-17-2022 Chronic Disorders of lipid metabolism (4 sources) Mixed hyperlipidemia; 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: [Mixed hyperlipidemia] Onset: 03-22-2022 01-17-2022 Chronic Essential hypertension (10 sources) Essential hypertension; 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: [Essential (primary) hypertension] Onset: 03-01-2022 Resolved: 06-03-2024 01-17-2022 Chronic Hyperplasia of prostate (2 sources) Weak urinary stream due to benign prostatic hypertrophy; 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: [Benign prostatic hyperplasia with lower urinary tract symptoms] Onset: 12-04-2023 12-04-2023 Chronic Osteoarthritis (3 sources) Arthritis; 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: [Osteoarthritis of bilateral hip joints] Onset: 12-04-2023 02-24-2022 Chronic Other aftercare (1 source) 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; 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: [PRISON USE ORAL HYPOGLYCEMIC DX] Onset: 12-06-2022 Episodic Other and unspecified benign neoplasm (1 source) Personal history of colonic polyps; 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: [PERSONAL HISTORY OF COLONIC POLYPS] Onset: 12-06-2022 Episodic Other nutritional; endocrine; and metabolic disorders (2 sources) Body mass index 30+ - obesity; 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: [Body mass index (BMI) 32.0-32.9, adult] Onset: 12-04-2023 12-04-2023 Chronic Spondylosis; intervertebral disc disorders; other back problems (1 source) Degeneration of lumbar intervertebral disc 02-24-2022 Chronic Substance-related disorders (4 sources) Smoker; 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: [Nicotine dependence, cigarettes, uncomplicated] Onset: 12-06-2022 01-17-2022 Chronic Comment on above: Added secondary to d ocumentation in Social History. 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] Onset: 03-01-2022 Episodic Other and unspecified benign neoplasm (2 sources) History of adenomatous polyp of colon; 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: [History of adenomatous polyp of colon] Onset: 12-04-2023 12-04-2023 Episodic Other lower respiratory disease (3 sources) Multiple nodules of lung; 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: [Other nonspecific abnormal finding of lung field] Onset: 12-25-2023 07-15-2024 Episodic Other lower respiratory disease (1 source) Other nonspecific abnormal finding of lung field; 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: [Other nonspecific abnormal finding of lung field] Onset: 03-25-2024 Episodic Other non-epithelial cancer of skin (2 sources) Squamous cell carcinoma of hand; 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: [Squamous cell carcinoma of skin of left upper limb, including shoulder] Onset: 12-04-2023 12-04-2023 Episodic Other screening for suspected conditions (not mental disorders or infectious disease) (14 sources) Encounter for screening for malignant neoplasm of colon; 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: [Encounter for screening for malignant neoplasm of prostate] Onset: 03-22-2022 Episodic Pancreatic disorders (not diabetes) (2 sources) Pancreatitis; 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: [Acute pancreatitis without necrosis or infection, unspecified] Onset: 12-04-2023 12-04-2023 Episodic Residual codes; unclassified (1 source) Procedure and treatment not carried out for other reasons; 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: [PROC AND TX NOT CARRIED OUT OTH REASONS] Onset: 03-01-2022 Episodic Residual codes; unclassified (2 sources) Tobacco user; 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: [Tobacco use] Onset: 12-04-2023 12-04-2023 Episodic Results Test Name Value Interpretation Reference Range Facility prostate anneliese claros 07-31-2 024 prostate wo kamran [facility] [place] [address] MRI Report Signed Patient: Hakeem Stark MR#: [id number] : 1955 Acct:[id number] Age/Sex: 69 / M ADM Date: 07/29/24 Loc: MR Room: Type: [facility] Attending Dr: Moni SANCHEZ Copies to: DANIEL Werner Ordering Provider: DANIEL Werner Date of Service: 07/29/24 MR/MR prostate wo con: R97.20 EXAMINATION: MR prostate wo con HISTORY: Elevated PSA. COMPARISON: NONE TECHNIQUE: Imaging of the prostate gland was performed without IV contrast. FINDINGS: Prostate Dimensions: 4.6 x 3.0 x 3.9 cm. Prostate Volume: 28 mL Peripheral Zone: Heterogenous inT2 signal suggestive of prior prostatitis. No suspicious T2 or ADC map abnormality is identified to suggest prostate malignancy. Central/Transitiona l Zone: BPH changes. Seminal Vesicles: Unremarkable Neurovascular bundles: Unremarkable. Lymphadenopathy: No evidence of lymphadenopathy. Bladder: No focal lesion. Bowel: The visualized bowel is without acute abnormality. Peritoneal Cavity: No free fluid. Bones: No suspicious bony lesion. MR/MR prostate wo con IMPRESSION: No MRI evidence of clinically significant prostate cancer. Impression dictated by: Galen Wadsworth Jr., D.ODeshaun07/31/2024 12:48 PM Dictation Location: [facility] Transcribed By: [facility] 07/31/24 1248 Dictated By: Galen Wadsworth Jr, DO 07/31/24 1231 Signed By: 07/31/24 1248 Normal [facility] ISTAT XRay CREon 07-29-2024 ISTAT GFR > 60.0 Normal [facility] Comment on above: Result Comment: PERF ORMED BY: [place] [address] PATHOLOGIST POOLING OPERATOR ONEYDA GUEVARA M.D. Performed By: #### I SCRE #### [address] No Panel InformationOrdered By: Moni Carpio on 07-29-2024 Bedside Estimated GFR (eGFR) > 60.0 [facility] Whole blood creatinine measu rementOrdered By: Moni Carpio on 07-29-2024 Creatinine [Mass/Vol] 1.0 mg/dL Normal 0.6-1.3 [facility] Comment on above: ER/ESD physician is notified/shown all ISTAT results.Critical values may be confirmed by laboratory testing ifdeemed necessary by ER attending doctor. Result Comment: ER/E SD physician is notified/shown all ISTAT results. Critical values may be confirmed by laboratory testing if deemed necessary by ER attending doctor. Performed By: #### I SCRE #### [facility] [address] [id number] [facility] Ambulatory Visit Summaryon 0 06-25-2024 Ambulatory Visit Summary Ambulatory Visit Summary HAKEEM STARK :1955 Visit Date:06/25/2024 Ambulatory Visit Instructions Your Diagnosis Elevated PSA BPH (benign prostatic hyperplasia) Kidney stone Tests Performed MRI Pelvis (Soft Tissue) w/ + w/o contrast -- Results Pending -- Please visit your patient portal for your results or contact your primary care physician. Your Care Team Attending Physician - SENG Carpio APRN, Moni Ferguson Primary Care Physician - MILDRED CORRAL CNP This Is Your Medications List Contact prescribing physician if questions or concerns aspirin (Aspirin 81 mg Tab-EC) atorvastatin (atorvastatin 80 mg Tab) lisinopril (lisinopril 10 mg Tab) meloxicam (meloxicam 15 mg oral tablet) metformin (metformin 750 mg ER Tab) tamsulosin (tamsulosin 0.4 mg Cap) Procedures Performed ESWL - Extracorporeal shockwave lithotripsy for renal calculus (02/24/2022), Colonoscopy. Discharge Vitals Height 180 cm Height 71 in Weight 112 kg Weight 246.4 lb BMI 34.57 What to do next You Need to Schedule the Following Appointments Follow Up with SENG Carpio APRN, Moni Ferguson, FAM, URL When: Comments: pending MRI Where: Medications What How Much When Instructions Unchanged aspirin (Aspirin 81 mg Tab-EC) 81 Milligram By Mouth Every day Contact prescribing physician if questions or concerns Unchanged atorvastatin (atorvastatin 80 mg Tab) 80 Milligram By Mouth Every day Contact prescribing physician if questions or concerns Unchanged lisinopril (lisinopril 10 mg Tab) 10 Milligram By Mouth Every day Contact prescribing physician if questions or concerns Unchanged meloxicam (meloxicam 15 mg oral tablet) 200 Milligram By Mouth Every day Contact prescribing physician if questions or concerns Unchanged metformin (metformin 750 mg ER Tab) 750 Milligram By Mouth 2 times a day Contact prescribing physician if questions or concerns Unchanged tamsulosin (tamsulosin 0.4 mg Cap) 1 Capsules By Mouth Every day Contact prescribing physician if questions or concerns Allergies No Known Allergies Problems Ongoing - Any problem that you are currently receiving treatment for. BPH (benign prostatic hyperplasia) Elevated PSA Essential hypertension Mixed hyperlipidemia Smoker Type 2 diabetes mellitus Patient Survey You may receive a survey via text or e-mail asking about your office visit. Please share your experience with us by completing your survey. We appreciate your feedback and thank you for choosing us for your care. Education Materials Prostate Cancer Screening Prostate cancer screening is testing that is done to check for the presence of prostate cancer in men. The prostate gland is a walnut-sized gland that is located below the bladder and in front of the rectum in males. The function of the prostate is to add fluid to semen during ejaculation. Prostate cancer is one of the most common types of cancer in men. Who should have prostate cancer screening? Screening recommendations vary based on age and other risk factors, as well as between the professional organizations who make the recommendations. In general, screening is recommended if: ? You are age 50 to 70 and have an average risk for prostate cancer. You should talk with your health care provider about your need for screening and how often screening should be done. Because most prostate cancers are slow growing and will not cause , screening in this age group is generally reserved for men who have a 10- to 15-year life expectancy. ? You are younger than age 50, and you have these risk factors: ? Having a father, brother, or uncle who has been diagnosed with prostate cancer. The risk is higher if your family member's cancer occurred at an early age or if you have multiple family members with prostate cancer at an early age. ? Being a male who is Black or is of [place] or sub-Saharan descent. In general, screening is not recommended if: ? You are younger than age 40. ? You are between the ages of 40 and 49 and you have no risk factors. ? You are 70 years of age or older. At this age, the risks that screening can cause are greater than the benefits that it may provide. If you are at high risk for prostate cancer, your health care provider may recommend that you have screenings more often or that you start screening at a younger age. How is screening for prostate cancer done? The recommended prostate cancer screening test is a blood test called the prostate-specific antigen (PSA) test. PSA is a protein that is made in the prostate. As you age, your prostate naturally produces more PSA. Abnormally high PSA levels may be caused by: ? Prostate cancer. ? An enlarged prostate that is not caused by cancer (benign prostatic hyperplasia, or BPH). This condition is very common in older men. ? A prostate gland infection (prostatitis) or urinary tract infectio (more content not included)... Normal [facility] Capillary blood glucose alex urement by glucometer (mass/volume)Ordered By: Mildred Corral on 03-25-2024 Glucose [Mass/Vol] 130 mg/dL Normal [facility] Comment on above: Random Glucose Refer ence Range is dependent on time and content of last meal. Glucose of more than 200 mg/dL in a nonstressed, ambulatory subject supports the diagnosis of Diabetes Mellitus. Result Comment: Viola om Glucose Reference Range is dependent on time and content of last meal. Glucose of more than 200 mg/dL in a nonstressed, ambulatory subject supports the diagnosis of Diabetes Mellitus. PERFORMED BY: [place] [address] PATHOLOGIST POOLING OPERATOR ONEYDA GUEVARA M.D. Performed By: #### G LULS #### Point of Care testing , [facility] PET tumor init tx [facility] sb-mt [facility] Main [place] [address] [place] [address] Nuclear Medicine Report Signed Patient: Hakeem Stark MR#: [id number] : 1955 Acct:[id number] Age/Sex: 68 / M ADM Date: 03/25/24 Loc: Room: Type: [facility] Attending Dr: Mildred Corral Copies to: Galen Wadsworth Jr, [place] Price Ordering Provider: [place] Starr Date of Service: 03/25/24 PET/PET tumor init tx [facility] sb-mt: Lung Nodule PET/CT [facility] [...] Wadsworth Jr., D.O.03/25/2024 11:58 AM Dictation Location: [place] [address] Transcribed By: [facility] 03/25/24 1158 Dictated By: Galen Wadsworth Jr, DO 03/25/24 1150 Signed By: 03/25/24 1158 Normal [facility] Glucose Poct Glucometerson 0 03-18-2024 Glucose [Mass/Vol] 115 mg/dL Normal [facility] Comment on above: Result Comment: Viola Glucose Reference Range is dependent on time and content of last meal. Glucose of more than 200 mg/dL in a nonstressed, ambulatory subject supports the diagnosis of Diabetes Mellitus. PERFORMED BY: [address] [address] PATHOLOGIST POOLING OPERATOR ONEYDA GUEVARA M.D. Performed By: #### G LUANGEL #### Point of Care testing , CT [...] the posterior right upper lobe, is likely infectious/inflamma tory. Intrapulmonary lymph node in the right major [...] Please consider referral for smoking cessation to [facility] Medication Therapy Management (MTM) if clinically appropriate. Download the LungRADS Assessment Categories table at this site: http://www.acr.org/ Quality-Safety/Reso urces/LungRADS Regarding coronary artery calcium, there is a [...] between these two extremes (Agatston score 101-1000). https://pubs.rsna.o rg/doi/abs/10.1148/ radiol.09135416 Electronically authenticated by: PATRICK VAZQUEZ Date: 2022-11-05 20:06 Normal [facility] GLYCOHEMOGLOBIN A1Con 2022 ADA RECOMMENDATION SEE BELOW Normal [facility] Comment on above: Result Comment: ADA RECOMMENDED LIMIT 4.0 - 6.0 ADA THERAPEUTIC TARGET < 7.0 ACTION SUGGESTED > 7.0 Performed By: #### A 1C #### [facility] [address] [address] [address] Gigi To Glucose [Mass/Vol] 117 mg/dL Normal [facility] Comment on above: Performed By: #### A 1C #### [facility] [address] [place] [address] Dr. Gigi To HbA1c (Bld) [Mass fraction] 5.7 % Normal 4.5-6.2 [facility] Comment on above: Performed By: #### A 1C #### [facility] [address] [place] [address] Dr. Gigi To PROF CHEM 8 (BAS METB)on Anion gap [Moles/Vol] 16.1 mmol/L Normal [facility] Comment on above: Performed By: #### B MP #### [facility] [address] [place] [address] Dr. Gigi To Calcium [Mass/Vol] 9.4 mg/dL Normal 8.5-10.1 [facility] Comment on above: Performed By: #### B MP #### [facility] [address] [place] [address] Dr. Gigi To Chloride [Moles/Vol] 105 mmol/L Normal 98-107 [facility] Comment on above: Performed By: #### B MP #### [facility] [address] [place] [address] Dr. Gigi To CO2 [Moles/Vol] 25.8 mmol/L Normal 21.0-32.0 [facility] Comment on above: Performed By: #### B MP #### [facility] [address] [place] [address] Dr. Gigi To Creatinine [Mass/Vol] 1.02 mg/dL Normal 0.70-1.30 [facility] Comment on above: Performed By: #### B MP #### [facility] [address] [place] [address] Dr. Gigi To EGFR-AF YEMENI >60 Normal >=60 [facility] Comment on above: Performed By: #### B MP #### [facility] [address] [place] [address] Dr. Gigi To EGFR-NON AF YEMENI >60 Normal >=60 [facility] Comment on above: Performed By: #### B MP #### [facility] [address] [address] [address] Gigi To Glucose [Mass/Vol] 109 mg/dL Critically high 74-106 T [facility] Comment on above: Performed By: #### B MP #### [facility] [address] [address] [address] Gigi To Potassium [Moles/Vol] 4.9 mmol/L Normal 3.5-5.1 [facility] Comment on above: Performed By: #### B MP #### [facility] [address] [address] [address] Gigi To Sodium [Moles/Vol] 142 mmol/L Normal 136-145 [facility] Comment on above: Performed By: #### B MP #### [facility] [address] [address] [address] Gigi To Urea nitrogen [Mass/Vol] 25.0 mg/dL Critically high 7.0-18.0 [facility] Comment on above: Performed By: #### B MP #### [facility] [address] [address] [address] Gigi To Urea nitrogen/Creatinine [Mass ratio] 24.5 mg/mg Normal [facility] Comment on above: Performed By: #### B MP #### [facility] [address] [address] [address] Gigi To CBC AUTO DIFFon 03-19-2022 BASO # 0.1 103/ul Normal 0.0-0.1 [facility] Comment on above: Performed By: #### C BC #### [facility] [address] [address] [address] Gigi To Basophils/100 WBC (Bld) 0.5 % Normal 0.2-2.0 [facility] Comment on above: Performed By: #### C BC #### [facility] [address] [address] [address] Gigi To EO # 0.3 103/ul Normal 0.0-0.7 [facility] Comment on above: Performed By: #### C BC #### [facility] [address] [place] [address] Dr. Gigi To Eosinophils/100 WBC (Bld) 2.7 % Normal 0.9-7.0 [facility] Comment on above: Performed By: #### C BC #### [facility] [address] [place] [address] Dr. Gigi To Erythrocyte distribution width (RBC) [Ratio] 14.0 % Normal 11.0-15.0 [facility] Comment on above: Performed By: #### C BC #### [facility] [address] [place] [address] Dr. Gigi To Hematocrit (Bld) [Volume fraction] 43.7 % Normal 42.0-54.0 [facility] Comment on above: Performed By: #### C BC #### [facility] [address] [place] [address] Dr. Gigi To Hemoglobin (Bld) [Mass/Vol] 14.4 g/dL Normal 14.0-18.0 [facility] Comment on above: Performed By: #### C BC #### [facility] [address] [place] [address] Dr. Gigi To IG # 0.03 10e3/ul Normal 0.00-0.03 [facility] Comment on above: Performed By: #### C BC #### [facility] [address] [place] [address] Dr. Gigi To IG % 0.3 % Normal 0.0-0.5 [facility] Comment on above: Performed By: #### C BC #### [facility] [address] [place] [address] Dr. Gigi To LYMPH # 2.9 103/ul Normal 1.2-3.8 [facility] Comment on above: Performed By: #### C BC #### [facility] [address] [place] [address] Dr. Gigi To Lymphocytes/100 WBC (Bld) 29.4 % Normal 20.5-60.0 [facility] Comment on above: Performed By: #### C BC #### [facility] [address] [place] [address] Dr. Gigi To MANUAL DIFF REQ NO Normal [facility] Comment on above: Performed By: #### C BC #### [facility] [address] [place] [address] Dr. Gigi To MCH (RBC) [Entitic mass] 32.2 pg Normal 25.9-34.0 [facility] Comment on above: Performed By: #### C BC #### [facility] [address] [place] [address] Dr. Gigi To MCHC (RBC) [Mass/Vol] 33.0 g/dL Normal 29.9-35.2 [facility] Comment on above: Performed By: #### C BC #### [facility] [address] [place] [address] Dr. Gigi To MCV (RBC) [Entitic vol] 97.8 fL Critically high 80.0-94.0 [facility] Comment on above: Performed By: #### C BC #### [facility] [address] [place] [address] Dr. Gigi To MONO # 0.8 103/ul Normal 0.3-0.8 [facility] Comment on above: Performed By: #### C BC #### [facility] [address] [place] [address] Dr. Gigi To Monocytes/100 WBC (Bld) 8.6 % Normal 1.7-12.0 [facility] Comment on above: Performed By: #### C BC #### [facility] [address] [place] [address] Dr. Gigi To NEUT # 5.7 103/ul Normal 1.4-6.5 [facility] Comment on above: Performed By: #### C BC #### [facility] [address] [place] [address] Dr. Gigi To Neutrophils/100 WBC (Bld) 58.5 % Normal 43.0-75.0 [facility] Comment on above: Performed By: #### C BC #### [facility] [address] [address] [address] Gigi To Platelet mean volume (Bld) [Entitic vol] 8.7 fL Critically low 9.5-13.5 [facility] Comment on above: Performed By: #### C BC #### [facility] [address] [address] [address] Gigi To PLT 280 103/ul Normal 150-450 [facility] Comment on above: Performed By: #### C BC #### [facility] [address] [address] [address] Gigi To RBC 4.47 106/ul Critically low 4.70-6.10 [facility] Comment on above: Performed By: #### C BC #### [facility] [address] [place] [address] Dr. Gigi To WBC 9.8 103/ul Normal 4.0-11.0 [facility] Comment on above: Performed By: #### C BC #### [facility] [address] [place] [address] Dr. Gigi To GLYCOHEMOGLOBIN A1Con 2021 ADA RECOMMENDATION SEE BELOW Normal [facility] Comment on above: Result Comment: ADA RECOMMENDED LIMIT 4.0 - 6.0 ADA THERAPEUTIC TARGET < 7.0 ACTION SUGGESTED > 7.0 Performed By: #### A 1C #### [facility] [address] [place] [address] Dr. Gigi To Glucose [Mass/Vol] 126 mg/dL Normal [facility] Comment on above: Performed By: #### A 1C #### [facility] [address] [place] [address] Dr. Gigi To HbA1c (Bld) [Mass fraction] 6.0 % Normal 4.5-6.2 [facility] Comment on above: Performed By: #### A 1C #### [facility] [address] [place] [address] Dr. Gigi To LIPID PROFILEon 03-19-2022 CHOL-HDL RATIO NORM SEE BELOW Normal [facility] Comment on above: Result Comment: 3.3 - 4.4 LOW RISK 4.4 - 7.1 AVERAGE RISK 7.1 - 11.0 MODERATE RISK >11.0 HIGH RISK Performed By: #### L IPID, CMP #### [facility] [address] [address] [address] Gigi To Cholesterol [Mass/Vol] 105 mg/dL Normal <=200 [facility] Comment on above: Performed By: #### L IPID, CMP #### [facility] [address] [address] [address] Gigi To Cholesterol in HDL [Mass/Vol] 29 mg/dL Critically low 40-60 [facility] Comment on above: Performed By: #### L IPID, CMP #### [facility] [address] [place] [address] Dr. Gigi To Cholesterol in LDL [Mass/Vol] 26.8 mg/dL Normal [facility] Comment on above: Performed By: #### L IPID, CMP #### [facility] [address] [place] [address] Dr. Gigi To Cholesterol.total/Chol esterol in HDL [Mass ratio] 3.6 {ratio} Normal [facility] Comment on above: Performed By: #### L IPID, CMP #### [facility] [address] [place] [address] Dr. Gigi To HDL NORMAL > or = 60 mg/dl - LOW CARDIOVASCULAR RISK <40 mg/dl - HIGH CARDIOVASCULAR RISK Normal [facility] Comment on above: Performed By: #### L IPID, CMP #### [facility] [address] [place] [address] Dr. Gigi To LDL CALC NORMAL SEE BELOW Normal [facility] Comment on above: Result Comment: <100 mg/dl OPTIMAL 100 - 129 mg/dl NEAR OR ABOVE OPTIMAL 130 - 159 mg/dl BORDERLINE HIGH 160 - 189 mg/dl HIGH >190 mg/dl VERY HIGH Performed By: #### L IPID, CMP #### [facility] [address] [place] [address] Dr. Gigi To Triglyceride [Mass/Vol] 246 mg/dL Critically high <=150 [facility] Comment on above: Performed By: #### L IPID, CMP #### [facility] [address] [address] [address] Gigi To VLDL CALC 49.2 mg/dL Normal [facility] Comment on above: Performed By: #### L IPID, CMP #### [facility] [address] [place] [address] Dr. Gigi To MICROALBUMIN, RAND URon 03-09 mALB 1.5 mg/L Normal <=30.0 [facility] Comment on above: Performed By: #### M ALBR #### [facility] [address] [place] [address] Dr. Gigi To PROF 14(COMP METB)on 022 Albumin [Mass/Vol] 3.9 g/dL Normal 3.4-5.0 [facility] Comment on above: Performed By: #### L IPID, CMP #### [facility] [address] [place] [address] Dr. Gigi To Albumin/Globulin [Mass ratio] 1.1 {ratio} Normal [facility] Comment on above: Performed By: #### L IPID, CMP #### [facility] [address] [place] [address] Dr. Gigi To ALP [Catalytic activity/Vol] 42 U/L Critically low 46-116 [facility] Comment on above: Performed By: #### L IPID, CMP #### [facility] [address] [place] [address] Dr. Gigi To ALT [Catalytic activity/Vol] 30 U/L Normal 16-63 [facility] Comment on above: Performed By: #### L IPID, CMP #### [facility] [address] [place] [address] Dr. Gigi To Anion gap [Moles/Vol] 14.5 mmol/L Normal [facility] Comment on above: Performed By: #### L IPID, CMP #### [facility] [address] [place] [address] Dr. Gigi To AST [Catalytic activity/Vol] 17 U/L Normal 15-37 [facility] Comment on above: Performed By: #### L IPID, CMP #### [facility] [address] [place] [address] Dr. Gigi To Bilirubin [Mass/Vol] 0.4 mg/dL Normal 0.2-1.0 [facility] Comment on above: Performed By: #### L IPID, CMP #### [facility] [address] [place] [address] Dr. Gigi To Calcium [Mass/Vol] 9.4 mg/dL Normal 8.5-10.1 [facility] Comment on above: Performed By: #### L IPID, CMP #### [facility] [address] [place] [address] Dr. Gigi To Chloride [Moles/Vol] 105 mmol/L Normal 98-107 [facility] Comment on above: Performed By: #### L IPID, CMP #### [facility] [address] [place] [address] Dr. Gigi To CO2 [Moles/Vol] 27.7 mmol/L Normal 21.0-32.0 [facility] Comment on above: Performed By: #### L IPID, CMP #### [facility] [address] [place] [address] Dr. Gigi To Creatinine [Mass/Vol] 1.00 mg/dL Normal 0.70-1.30 [facility] Comment on above: Performed By: #### L IPID, CMP #### [facility] [address] [place] [address] Dr. Gigi To EGFR-AF YEMENI >60 Normal >=60 [facility] Comment on above: Performed By: #### L IPID, CMP #### [facility] [address] [place] [address] Dr. Gigi To EGFR-NON AF YEMENI >60 Normal >=60 [facility] Comment on above: Performed By: #### L IPID, CMP #### [facility] [address] [place] [address] Dr. Gigi To Globulin (S) [Mass/Vol] 3.5 g/dL Normal [facility] Comment on above: Performed By: #### L IPID, CMP #### [facility] [address] [place] [address] Dr. Gigi To Glucose [Mass/Vol] 108 mg/dL Critically high 74-106 T [facility] Comment on above: Performed By: #### L IPID, CMP #### [facility] [address] [place] [address] Dr. Gigi To Potassium [Moles/Vol] 4.2 mmol/L Normal 3.5-5.1 [facility] Comment on above: Performed By: #### L IPID, CMP #### [facility] [address] [place] [address] Dr. Gigi To Protein [Mass/Vol] 7.4 g/dL Normal 6.4-8.2 [facility] Comment on above: Performed By: #### L IPID, CMP #### [facility] [address] [place] [address] Dr. Gigi To Sodium [Moles/Vol] 143 mmol/L Normal 136-145 [facility] Comment on above: Performed By: #### L IPID, CMP #### [facility] [address] [place] [address] Dr. Gigi To Urea nitrogen [Mass/Vol] 21.0 mg/dL Critically high 7.0-18.0 [facility] Comment on above: Performed By: #### L IPID, CMP #### [facility] [address] [place] [address] Dr. Gigi To Urea nitrogen/Creatinine [Mass ratio] 21.0 mg/mg Normal [facility] Comment on above: Performed By: #### L IPID, CMP #### [facility] [address] [place] [address] Dr. iGgi To CHEMISTRYOrdered By: Lab ROP User on 02-24-2022 Glucose [Mass/Vol] 119 mg/dL High 55 - 99 mg/dL FTM C POC Subsection Comment on above: Result Comment: Isha marcos Meter POC Device SN [id number] Invalid Interpretation Code [facility] [place] POC Subsection POC User ID [id number] Invalid Interpretation Code [facility] [place] POC Subsection POC Username IQRA DODSON Invalid Interpretation Code [facility] [place] POC Subsection XR KUB 1 VIEWon 02-24-2022 XR KUB [...] YAIMA NOONAN Date: 2022-02-24 07:22 Normal [facility] CBC AUTO DIFFon 02-21-2022 BASO # 0.1 103/ul Normal 0.0-0.1 [facility] Comment on above: Performed By: #### A 1C #### [facility] [address] [place] [address] Dr. Gigi To Basophils/100 WBC (Bld) 0.6 % Normal 0.2-2.0 [facility] Comment on above: Performed By: #### A 1C #### [facility] [address] [place] [address] Dr. Gigi To EO # 0.2 103/ul Normal 0.0-0.7 [facility] Comment on above: Performed By: #### A 1C #### [facility] [address] [place] [address] Dr. Gigi To Eosinophils/100 WBC (Bld) 1.9 % Normal 0.9-7.0 [facility] Comment on above: Performed By: #### A 1C #### [facility] [address] [place] [address] Dr. Gigi To Erythrocyte distribution width (RBC) [Ratio] 14.3 % Normal 11.0-15.0 [facility] Comment on above: Performed By: #### A 1C #### [facility] [address] [place] [address] Dr. Gigi To Hematocrit (Bld) [Volume fraction] 40.4 % Critically low 42.0-54.0 [facility] Comment on above: Performed By: #### A 1C #### [facility] [address] [place] [address] Dr. Gigi To Hemoglobin (Bld) [Mass/Vol] 13.4 g/dL Critically low 14.0-18.0 [facility] Comment on above: Performed By: #### A 1C #### [facility] [address] [place] [address] Dr. Gigi To IG # 0.02 10e3/ul Normal 0.00-0.03 [facility] Comment on above: Performed By: #### A 1C #### [facility] [address] [place] [address] Dr. Gigi To IG % 0.3 % Normal 0.0-0.5 [facility] Comment on above: Performed By: #### A 1C #### [facility] [address] [place] [address] Dr. Gigi To LYMPH # 2.4 103/ul Normal 1.2-3.8 [facility] Comment on above: Performed By: #### A 1C #### [facility] [address] [place] [address] Dr. Gigi To Lymphocytes/100 WBC (Bld) 30.7 % Normal 20.5-60.0 [facility] Comment on above: Performed By: #### A 1C #### [facility] [address] [place] [address] Dr. Gigi To MANUAL DIFF REQ NO Normal [facility] Comment on above: Performed By: #### A 1C #### [facility] [address] [place] [address] Dr. Gigi To MCH (RBC) [Entitic mass] 31.8 pg Normal 25.9-34.0 [facility] Comment on above: Performed By: #### A 1C #### [facility] [address] [place] [address] Dr. Gigi To MCHC (RBC) [Mass/Vol] 33.2 g/dL Normal 29.9-35.2 [facility] Comment on above: Performed By: #### A 1C #### [facility] [address] [place] [address] Dr. Gigi To MCV (RBC) [Entitic vol] 95.7 fL Critically high 80.0-94.0 [facility] Comment on above: Performed By: #### A 1C #### [facility] [address] [place] [address] Dr. Gigi To MONO # 0.8 103/ul Normal 0.3-0.8 [facility] Comment on above: Performed By: #### A 1C #### [facility] [address] [place] [address] Dr. Gigi To Monocytes/100 WBC (Bld) 10.0 % Normal 1.7-12.0 [facility] Comment on above: Performed By: #### A 1C #### [facility] [address] [place] [address] Dr. Gigi To NEUT # 4.4 103/ul Normal 1.4-6.5 [facility] Comment on above: Performed By: #### A 1C #### [facility] [address] [place] [address] Dr. Gigi To Neutrophils/100 WBC (Bld) 56.5 % Normal 43.0-75.0 [facility] Comment on above: Performed By: #### A 1C #### [facility] [address] [place] [address] Dr. Gigi To Platelet mean volume (Bld) [Entitic vol] 9.1 fL Critically low 9.5-13.5 [facility] Comment on above: Performed By: #### A 1C #### [facility] [address] [place] [address] Dr. Gigi To PLT 256 103/ul Normal 150-450 [facility] Comment on above: Performed By: #### A 1C #### [facility] [address] [place] [address] Dr. Gigi To RBC 4.22 106/ul Critically low 4.70-6.10 [facility] Comment on above: Performed By: #### A 1C #### [facility] [address] [place] [address] Dr. Gigi To WBC 7.8 103/ul Normal 4.0-11.0 [facility] Comment on above: Performed By: #### A 1C #### [facility] [address] [place] [address] Dr. Gigi To PROF CHEM 8 (BAS METB)on Anion gap [Moles/Vol] 13.6 mmol/L Normal [facility] Comment on above: Performed By: #### B MP #### [facility] [address] [place] [address] Dr. Gigi To Calcium [Mass/Vol] 9.2 mg/dL Normal 8.5-10.1 [facility] Comment on above: Performed By: #### B MP #### [facility] [address] [place] [address] Dr. Gigi To Chloride [Moles/Vol] 104 mmol/L Normal 98-107 [facility] Comment on above: Performed By: #### B MP #### [facility] [address] [place] [address] Dr. Gigi To CO2 [Moles/Vol] 26.9 mmol/L Normal 21.0-32.0 [facility] Comment on above: Performed By: #### B MP #### [facility] [address] [place] [address] Dr. Gigi To Creatinine [Mass/Vol] 0.95 mg/dL Normal 0.70-1.30 [facility] Comment on above: Performed By: #### B MP #### [facility] [address] [place] [address] Dr. Gigi To EGFR-AF YEMENI >60 Normal >=60 [facility] Comment on above: Performed By: #### B MP #### [facility] [address] [place] [address] Dr. Gigi To EGFR-NON AF YEMENI >60 Normal >=60 [facility] Comment on above: Performed By: #### B MP #### [facility] [address] [address] [address] Gigi To Glucose [Mass/Vol] 121 mg/dL Critically high 74-106 T [facility] Comment on above: Performed By: #### B MP #### [facility] [address] [address] [address] Gigi To Potassium [Moles/Vol] 4.5 mmol/L Normal 3.5-5.1 [facility] Comment on above: Performed By: #### B MP #### [facility] [address] [address] [address] Gigi To Sodium [Moles/Vol] 140 mmol/L Normal 136-145 [facility] Comment on above: Performed By: #### B MP #### [facility] [address] [place] [address] Dr. Gigi To Urea nitrogen [Mass/Vol] 15.0 mg/dL Normal 7.0-18.0 [facility] Comment on above: Performed By: #### B MP #### [facility] [address] [address] [address] Gigi To Urea nitrogen/Creatinine [Mass ratio] 15.8 mg/mg Normal [facility] Comment on above: Performed By: #### B MP #### [facility] [address] [place] [address] Dr. Gigi To PROTIMEon 02-21-2022 INR Coag (PPP) [Relative time] 0.99 {INR} Normal [facility] Comment on above: Performed By: #### A 1C #### [facility] [address] [place] [address] Dr. Gigi To INR GUIDELINES SEE BELOW Normal [facility] Comment on above: Result Comment: ASHLEY RED INR: 2.0 - 3.0 CONDITIONS NOT LISTED BELOW 2.5 - 3.5 FOR PROSTHETIC HEART VALVE REPLACEMENT 2.5 - 3.5 RECURRENT THROMBOSIS Performed By: #### A 1C #### [facility] [address] [place] [address] Dr. Gigi To PT Coag (PPP) [Time] 10.7 s Normal 9.0-11.6 [facility] Comment on above: Performed By: #### A 1C #### [facility] [address] [place] [id number] [address] Gigi To PTTon 02-21-2022 aPTT Coag (Bld) [Time] 26.2 s Normal 22.3-36.2 Th [facility] Comment on above: Performed By: #### A 1C #### [facility] [address] [place], [place] [id number] Dr. Gigi To Vital Signs Date Time Vital Sign Value Performing Clinician Facility 03-25-2024 07:46-0400 Body height 180.34 cm Mildred Corral Work Phone: [facility] 03-25-2024 07:46-0400 Body weight 104.32 kg Mildred Corral Work Phone: [facility] 02-24-2022 17:16-0400 Blood Pressure Location Aravind Sound[facility] 02-24-2022 17:16-0400 BP/Pulse Patient Position [facility] 02-24-2022 17:16-0400 Diastolic blood pressure 80 mm[Hg] [facility] 02-24-2022 17:16-0400 Heart rate 85 /min [facility] 02-24-2022 17:16-0400 Mean blood pressure 103 mm[Hg] [facility] 02-24-2022 17:16-0400 Respiratory rate 18 /min [facility] 02-24-2022 17:16-0400 SaO2% (BldA) [Mass fraction] 97 % [facility] 02-24-2022 17:16-0400 Systolic blood pressure 150 mm[Hg] Aravindpasha REDMAN [facility] 02-24-2022 16:20-0400 Blood Pressure Location Aravindpasha [facility] 02-24-2022 16:20-0400 Diastolic blood pressure 90 mm[Hg] Aravindpasha [facility] 02-24-2022 16:20-0400 Heart rate 84 /min Aravindpasha [facility] 02-24-2022 16:20-0400 Respiratory rate 18 /min Aravindpasha [facility] 02-24-2022 16:20-0400 SaO2% (BldA) [Mass fraction] 96 % Aravindpasha [facility] 02-24-2022 16:20-0400 Systolic blood pressure 150 mm[Hg] Aravindpasha [facility] 02-24-2022 16:13-0400 Body temperature 97.34 [degF] Aravindpasha [facility] 02-24-2022 16:13-0400 Diastolic blood pressure 95 mm[Hg] Aravindpasha [facility] 02-24-2022 16:13-0400 Heart rate 94 /min Aravindpasha [facility] 02-24-2022 16:13-0400 Respiratory rate 15 /min Aravindpasha [facility] 02-24-2022 16:13-0400 SaO2% (BldA) [Mass fraction] 95 % Aravind [facility] 02-24-2022 16:13-0400 Systolic blood pressure 154 mm[Hg] Aravindpasha [facility] 02-24-2022 16:00-0400 Respiratory rate 24 /min Aravind [facility] 02-24-2022 15:55-0400 Respiratory rate 18 /min Aravind [facility] 02-24-2022 15:48-0400 Body temperature 97.16 [degF] Aravind [facility] 02-24-2022 15:45-0400 Respiratory rate 1 /min Aravind [facility] 02-24-2022 10:49-0400 Blood Pressure Location Aravind [facility] 02-24-2022 10:49-0400 Mean blood pressure 100 mm[Hg] Aravind [facility] 02-24-2022 10:47-0400 Body temperature 98.06 [degF] Aravind [facility] 02-24-2022 10:47-0400 Mean blood pressure 115 mm[Hg] Aravind [facility] 02-24-2022 10:47-0400 Heart rate 96 /min Aravindpasha [facility] Encounters Encounter Date Encounter Type Care Provider Facility Start: 08-08-2024 End: 08-08-2024 Refill Mildred Corral [employer] Work Phone: [facility] Comment on above: Type 2 diabetes rah itus without complication, without long- term current use of insulin ([facility]) Start: 07-29-2024 End: 07-29-2024 Patient encounter procedure Mildred Corral Work Phone: [facility] [place] Work Phone: Start: 07-29-2024 End: 07-29-2024 ambulatory Mildred Corral Work Phone: [facility] Work Phone: Start: 07-15-2024 End: 07-15-2024 Orders Only Mildred Quinonezz [employer] Work Phone: [facility] Comment on above: Lung nodule, multipl e (Primary Dx) Start: 06-25-2024 End: 06-25-2024 ambulatory Moni X Orzech Facility:[facility] Start: 06-03-2024 End: 06-03-2024 ambulatory MILDREDRowena QUINONEZZ Not Available Start: 03-25-2024 End: 03-25-2024 Patient encounter procedure Mildred Corral Work Phone: [facility] Work Phone: Start: 03-25-2024 End: 03-25-2024 ambulatory Mildred Corral Work Phone: [facility] Work Phone: Start: 12-04-2023 End: 12-04-2023 ambulatory MILDRED CORRAL Not Available Start: 12-26-2022 ambulatory PRESCHOOL ASSISTANT MILDRED BERNADETTEHOLZ Facil ity:[facility]1 Start: 12-02-2022 End: 12-02-2022 ambulatory SARTHAK CUAUHTEMOCKhoa . Facility:[facility] Start: 11-05-2022 End: 11-06-2022 ambulatory PRESCHOOL ASSISTANT MILDRED AICHHOLZ Facility:[facility] Start: 03-19-2022 End: 03-20-2022 ambulatory PRESCHOOL ASSISTANT MILDRED AICHHOLZ Facility:[facility] Start: 02-25-2022 Encounter for other preprocedural examination DR ARAVIND REDMAN . [facility] Start: 02-25-2022 Encounter for preprocedural cardiovascular examination DR ARAVIND REDMAN . [facility] Start: 02-25-2022 Encounter for preprocedural laboratory examination DR ARAVIND REDMAN . [facility] Start: 02-24-2022 End: 02-24-2022 Admission to same day surgery center Aravind [facility] Start: 02-24-2022 End: 02-24-[address] ARAVIND REDMAN . Facility:[facility] Start: 02-21-2022 End: 02-22-[address] ARAVIND REDMAN . Facility:[facility] Start: 02-21-2022 End: 02-22-2022 Encounter for preprocedural laboratory examination DR ARAVIND REDMAN . Facility:[facility] Procedures Date Procedure Procedure Detail Performing Clinician Start: 03-25-2024 Positron emission tomography with computed tomography Mildred Corral Work Phone: Start: 12-02-2022 Colonoscopy Mildred mejia [employer] Work Phone: Start: 03-19-2022 PSA screening PRESCHOOL ASSISTANT MILDRED CORRAL Comment on above: Performed By: #### P SAD #### [facility] [address] [place] [address] Dr. Gigi To Start: 02-24-2022 Extracorporeal shock wave lithotripsy of calculus of kidney Aravind [facility] Colonoscopy Aravind [facility] Plan of Treatment Date Care Activity Detail Author Start: 12-02-2027 Screening for malign ant neoplasm of colon [facility] Start: 06-03-2026 Glaucoma screening Diabetes: R etinopathy Screening [facility] Start: 05-06-2025 Urine screening for protein Diabetes: Urine Protein Screening [facility] Start: 12-02-2024 End: 12-02-2024 Patient encounter procedure 12/02/2024 8:40 AM EST Office Visit [facility] [address] [place] [id number] Mildred Corral NP [address] [place] [id number] [facility] Start: 11-06-2024 Hemoglobin A1c measurement Diabetes: Hemoglobin A1C [facility] Start: 07-29-2024 MR prostate wo con MR prostate wo co n [facility] Start: 07-29-2024 MR Prostate WO contrast [facility] Start: 07-15-2024 End: 07-15-2025 CT Chest for screening WO contrast Lung screening follow up CT chest wo IV contrast Imaging Routine Lung nodule, multiple Expected: 07/15/2024 (Approximate), Expires: 07/15/2025 [facility] Work Phone: Comment on above: Expected: 07/15/2024 (Approximate), Expires: 07/15/2025 Start: 1955 Screening for malign ant neoplasm of colon [facility] Immunizations Immunization Date Immunization Notes Care Provider Fa le 03-15-2021 SARS-CoV-2 (COVID-19 ) mRNA BNT-162b2 vax Aravind ЮЛИЯ [facility] 02-27-2021 SARS-CoV-2 (COVID-19 ) mRNA BNT-162b2 alejandro [facility] Payers Date Payer Category Payer Self-pay 2024 Medicare [id number] 2021 Private Health Insurance [id number] 1959 Private Health Insurance [id number] 1955 Unknown [id number] 2.16.84 [id number] 1953 Unknown [id number] 2.16.84 [id number] 1953 Unknown [id number] 2.16.84 [id number] 1953 Unknown [id number] 2.16.84 [id number] 1953 Unknown [id number] 2.16.84 [id number] 1953 Unknown [id number] 2.16.84 [id number] 1953 Unknown [id number] 2.16.84 [id number] 1953 Unknown [id number] 2.16.84 [id number] 1953 Unknown [id number] 2.16.8 [id number] Unknown [id number] 2.16.8 [id number] Unknown [id number] 2.16.8 [id number] Social History Date Type Detail Facility Tobacco Unknown if ever smoked [facility] Comment on above: 1 10/10 ppd cigarettes Start: 12-04-2023 End: 06-03-2024 Sex Assigned At Male [facility] Start: 1955 Sex Assigned At Male [facility] Start: 06-03-2024 Tobacco smoking stat [email or web address]IS Smokes tobacco daily [facility] History of tobacco use Cigarette Smoker [facility] Start: 06-03-2024 Tobacco use and exposure Smokeless tobacco non-user [facility] Start: 06-03-2024 Alcoholic beverage intake Ex-drinker (finding) [facility] Start: 12-04-2023 End: 06-03-2024 History of Social function [facility] Start: 12-04-2023 Alcohol Comment coffee: 2-3 cups [facility] Start: 1955 Sex assigned at Not on file [facility] Clinical Note 06-25-2024 Note Date & Type Note Facility 06-25-2024 Note Urology Office/Clini c Note HPI Staff 69 yr old male here today as referral for elevated PSA. Previous dx: BPH with urinary obstruction, Kidney stone, elevated PSA PSA: 05/06/24 - 2.5 & 16.4% 04/29/23 - 0.47 03/16/19 - 0.38 03/16/20 - 0.52 03/15/21 - 0.37 03/19/22 - 0.37 Dysuria: Pt. states every once in a while Incomplete bladder emptying: Pt. states 9/10 feels empty Hematuria: no Frequency: 2-3 hours Urgency: no Nocturia: no Stream: occasionally weak stream Post void dripping: no Wearing pads/ Depends: no Urge incontinence: no Stress incontinence: no Incontinence without Sensory Awareness: no Abdominal pain: no Flank pain: no History of Present Illness I have reviewed and verified the staff HPI to be accurate for this encounter. Portions of this record may have been created with voice recognition artificial intelligence software, specifically [employer], [employer] and or [employer]. Substitutions may have occurred due to the inherent limitations of voice recognition and artificial intelligence software. Review of Systems PHQ Score Initial Depression Screen Score: 0 SCORE Physical Exam Vitals & Measurements HT: 71 in HT: 180 cm WT: 112 kg WT: 246.4 lb BMI: 34.57 General: Well developed, well nourished, in no acute distress. Genitourinary: Prostate: normal prostate, no hard nodule observed. Assessment/Plan PWR pt 1. Elevated PSA (R97.20: Elevated prostate specific antigen [PSA]) PSA: 03/16/19 - 0.38 03/16/20 - 0.52 03/15/21 - 0.37 03/19/22 - 0.37 04/29/23 - 0.47 05/06/24 - 2.5 & 16.4% Denies any known family hx of prostate ca. Today I reviewed the patients past history including voiding symptoms, PSA history. I discussed the production of PSA by the prostate gland as well as common causes of elevated serum PSA including infection, inflammation, BPH and prostate cancer. He understood that his PSA level may also be falsely elevated due to any manipulation/instrumentation around the time of a PSA draw. I discussed the absolute value of PSA as well as PSA velocity and age specific PSA and the implications with the patient. I gave the patient management options moving forward and explained the risks/benefits of each one: -Continue monitoring PSA with repeat in 6-12 months -Obtain additional biomarkers such as select MDX -Obtain prostate MRI to evaluate for suspicious lesions. He understands MRIs may miss malignancy in 12-16% of patients. Patient elects to proceed w/ MRI. -prostate MRI at [facility]. Pt knows that this could lead to fusion bx. -if neg, will f/u Sep 2024 w/ repeat PSA -if pos, will schedule for fusion bx w/ PRW Will schedule TRUS of Prostate with Biopsy. The procedural risks, benefits, details, and treatment alternatives have been discussed with the patient. These include minimal to severe bleeding, infection, blood in the semen, inability to urinate, and severe infection requiring hospitalization and IV antibiotics, among others. Ordered: MRI Pelvis (Soft Tissue) w/ + w/o contrast Urnls Dip Stick Auto w/o Microscopy POC [id number] 2. BPH (benign prostatic hyperplasia) (N40.0: Benign prostatic hyperplasia without lower urinary tract symptoms) IPSS 4 - mild sxs of BPH. Patient is overall happy with his urinary symptoms at this time. He does take tamsulosin 0.4 mg daily. Tolerates this well without side effects. He denies any recently worsening urinary symptoms or symptoms of UTI or prostatitis. UA today without signs of bladder infection -Continue tamsulosin 3. Kidney stone (N20.0: Calculus of kidney) s/p left ESWL 02/24/22 Denies any recent stone event or imaging. Denies any flank pain today. 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 Medications Aspirin 81 mg Tab-EC, 81 mg, Oral, Daily atorvastatin 80 mg Tab, 80 mg, Oral, Daily lisinopril 10 mg Tab, 10 mg, Oral, Daily meloxicam 15 mg oral tablet, 200 mg, Oral, Daily metformin 750 mg ER Tab, 750 mg, Oral, BID tamsulosin 0.4 mg Cap, 0.4 mg= 1 cap(s), Oral, Daily, 8 refills Allergies No Known Allergies Social History Alcohol Beer, 02/24/2022 Substance Abuse Tobacco Smoker, current status unknown Tobacco Use:. Cigarettes, 01/17/2022 Family History Cancer of colon: Brother. Diabetes mellitus type 2: Mother. Heart attack: Father. Heart disease: Mother. High cholesterol: Mother. Hypertension: Mother. Stroke: Father. Immunizations Vaccine (more content not included)... [facility] Comment on above: Result Comment: Mary jo Signed By: SENG Carpio APRN, Aurora X\.kay\Date and Time Signed: 06/25/24 13:10 EDT Clinical Note 06-25-2024 Note Date & Type Note Facility 06-25-2024 Note Patient Education Oncology Prostate Cancer Screening Prostate cancer screening is testing that is done to check for the presence of prostate cancer in men. The prostate gland is a walnut-sized gland that is located below the bladder and in front of the rectum in males. The function of the prostate is to add fluid to semen during ejaculation. Prostate cancer is one of the most common types of cancer in men. Who should have prostate cancer screening? Screening recommendations vary based on age and other risk factors, as well as between the professional organizations who make the recommendations. In general, screening is recommended if: ? You are age 50 to 70 and have an average risk for prostate cancer. You should talk with your health care provider about your need for screening and how often screening should be done. Because most prostate cancers are slow growing and will not cause , screening in this age group is generally reserved for men who have a 10- to 15-year life expectancy. ? You are younger than age 50, and you have these risk factors: ? Having a father, brother, or uncle who has been diagnosed with prostate cancer. The risk is higher if your family member's cancer occurred at an early age or if you have multiple family members with prostate cancer at an early age. ? Being a male who is Black or is of [place] or sub-Saharan descent. In general, screening is not recommended if: ? You are younger than age 40. ? You are between the ages of 40 and 49 and you have no risk factors. ? You are 70 years of age or older. At this age, the risks that screening can cause are greater than the benefits that it may provide. If you are at high risk for prostate cancer, your health care provider may recommend that you have screenings more often or that you start screening at a younger age. How is screening for prostate cancer done? The recommended prostate cancer screening test is a blood test called the prostate-specific antigen (PSA) test. PSA is a protein that is made in the prostate. As you age, your prostate naturally produces more PSA. Abnormally high PSA levels may be caused by: ? Prostate cancer. ? An enlarged prostate that is not caused by cancer (benign prostatic hyperplasia, or BPH). This condition is very common in older men. ? A prostate gland infection (prostatitis) or urinary tract infection. ? Certain medicines such as male hormones (like testosterone) or other medicines that raise testosterone levels. A rectal exam may be done as part of prostate cancer screening to help provide information about the size of your prostate gland. When a rectal exam is performed, it should be done after the PSA level is drawn to avoid any effect on the results. Depending on the PSA results, you may need more tests, such as: ? A physical exam to check the size of your prostate gland, if not done as part of screening. ? Blood and imaging tests. ? A procedure to remove tissue samples from your prostate gland for testing (biopsy). This is the only way to know for certain if you have prostate cancer. What are the benefits of prostate cancer screening? ? Screening can help to identify cancer at an early stage, before symptoms start and when the cancer can be treated more easily. ? There is a small chance that screening may lower your risk of dying from prostate cancer. The chance is small because prostate cancer is a slow-growing cancer, and most men with prostate cancer from a different cause. What are the risks of prostate cancer screening? The main risk of prostate cancer screening is diagnosing and treating prostate cancer that would never have caused any symptoms or problems. This is called overdiagnosisand overtreatment. PSA screening cannot tell you if your PSA is high due to cancer or a different cause. A prostate biopsy is the only procedure to diagnose prostate cancer. Even the results of a biopsy may not tell you if your cancer needs to be treated. Slow-growing prostate cancer may not need any treatment other than monitoring, so diagnosing and treating it may cause unnecessary stress or other side effects. Questions to ask your health care provider ? When should I start prostate cancer screening? ? What is my risk for prostate cancer? ? How often do I need screening? ? What type of screening tests do I need? ? How do I get my test results? ? What do my results mean? ? Do I need treatment? Where to find more information ? The [place] [employer] Society: www.cancer.org ? [place] [employer] Association: www.auanet.org Contact a health care provider if: ? You have difficulty urinating. ? You have pain when you urinate or ejaculate. ? You have blood in your urine or semen. ? You have pain in your back or in the area of your prostate. Summary ? Prostate cancer is a common type of cancer in men. The prostate gland is located below the bladder and in front of the rectum. (more content not included)... [facility] Discharge instructions 02-24-2022 Note Date [...] Follow these instructions at home: Medicines Take adcf-bqv-jpgqoey and prescription medicines only as told by [...] 10/14/2008 Document Revised: 01/06/2020 Document Reviewed: 08/16/2017 [employer] Patient Education 2020 [employer]. 02/24/2022 16:14:46 [id number] Utereroscopy,Lithotripsy, Stone Extraction, Stent Placement (Custom) [facility] [place], [place] Post-operative Instructions for Ureteroscopy, Laser Lithotripsy, [...] other reasons. 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 required [...] arrange for your post-operative appointment (with XRAY) [phone] 02/24/2022 16:12:34 Post Op Patient Instructions - FT (Custom) (CUSTOM) Follow Up Care 02/24/2022 09:52:22 With:Aravind REDMAN Address: [facility] [address], [place] [address]- Business (1) When: Unknown Comments:Office will call for next step [facility] Evaluation + Plan note 02-24-2022 Note Date & Type Note Facility 02-24-2022 Evaluation + Plan note Extrac rita from: Title:Post-anesthesia - General Author:Parker Ramirez DO Date:02/24/22 Plan Transfer/ Discharge: Condition stable. Extracted from: Title:Pre-anesthesia - Adult Author:Parker Fields Jr., DO Date:02/24/22 Plan [place] Society of Anesthesiologists (ASA) physical status classification: Class III. Anesthetic Preoperative Plan Anesthesia: General. . Anesthetic plan, risks, benefits, and alternatives discussed with the patient and/or family. Patient verbalized understanding. Adverse reactions, complications, and alternatives discujssed. Consent signed and on chart.. [facility] Evaluation note Note Date & Type Note Facility Evaluation note [facility]: Evaluation note Note Date & Type Note Facility Evaluation note Diagnosis Lung nodule, multiple- Primary documented in this encounter [facility] Evaluation note Note Date & Type Note Facility Evaluation note Diagnosis Type 2 diabetes mellitus without complication, without long-term current use of insulin (CMS/HCC)- Primary History of adenomatous polyp of colon Personal history of colonic polyps Primary hypertension (CMS/HCC) Unspecified essential hypertension Coronary artery disease 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 (CMS/HCC) Cigarette nicotine dependence without complication Tobacco user Tobacco use disorder BMI 32.0-32.9,adult Controlled type 2 diabetes mellitus without complication, without long-term current use of insulin ([facility]/HCC) Benign prostatic hyperplasia with weak urinary stream Primary hypertension (CMS/HCC)- Primary Unspecified essential hypertension Centrilobular emphysema (CMS/HCC) BMI 32.0-32.9,adult Type 2 diabetes mellitus without complication, without long-term current use of insulin (CMS/HCC) Cigarette nicotine dependence without complication Rising PSA level Type 2 diabetes mellitus without complication, without long-term current use of insulin ([facility]/HCC) documented in this encounter [facility] Hospital course Narrative Note Date & Type Note Facility Hospital course Narrative No data available for this section [facility] Summary Purpose Family History No Family History Records FoundNo Family History Records FoundNo Family History Records FoundNo Family History Records Found Advance Directives Advance Directive Response Recorded Date/ Time Advance Directives No March 06 2:20pm Chief Complaint and Reason for Visit Chief Complaint r91.8 Chief Complaint r97.20 Reason for Referral Specialty Diagnoses / Procedures Referred By Han t Referred To Contact Diagnoses Lung nodule, multiple Procedures Lung screening follow up CT chest wo IV contrast Mildred Corral, CARLA [address] [place] [address] Referral ID Status Reason Start Date Expiration Date V isits Requested Visits Authorized [id number] Pending Review 07/15/2024 01/11/2025 1 1 Additional Source Comments (unrecognized sect ion and content) No Status Records FoundNo Status Records FoundNo Status Records FoundNo Status Records Found INFORMATION SOURCE (unrecogn ized section and content) DATE CREATED AUTHOR 12/23/2022 [facility] DATE CREATED AUTHOR AUTHOR'S ORGANIZ ATION 06/04/2024 [facility] DATE CREATED AUTHOR AUTHOR'S ORGANIZ ATION 06/27/2024 Celeste Graham [facility] DATE CREATED AUTHOR AUTHOR'S ORGANIZ ATION 08/04/2024 [facility] Care Teams (unrecognized sec tion and content) Team Status: Active Member Role Status Dates Mildred Corral Primary Care Provider Active Team Status: Inactive Member Role Status Dates Mildred Corral Primary Care Provide r, Attending Provider Active Start: March 25, 2024 End: March 25, 2024 Tapper Balance Wheel Screw Hole Relationship Specialty Start Date End Date Pavan Dailey MD [address] [place] [address] PCP - General Family Medicine 11/06/23 Team Status: Inactive Member Role Status Dates Mildred Corral Primary Care Provider Active Sta rt: July 29, 2024 End: July 29, 2024 DANIEL Werner Attending Provider Active Start: July 29, 2024 End: July 29, 2024 Tapper Balance Wheel Screw Hole Relationship Specialty Start Date End Date Pavan Dailey MD [address] [place] [address] PCP - General Family Medicine 11/06/23 Goals (unrecognized section and content) Goals may be documented in a n alternate section Reason for Visit (unrecogniz ed section and content) Reason Comments Med Refill FOR RECORDS PERTAINING TO PATIENTS WHO ARE [...] BE BASED ON THE PRIMARY CLINICAL RECORDS. [facility] [employer] [facility]. provides no warranty or guarantee of the accuracy or completeness of information in this document.
== END 2024-08-12 07:27 | disposition home or self-care (01) ==
LOC: CT 07:27
PROVIDERS: PCP Nurse Practitioner; Visit Provider Nurse Practitioner
DX: R91.8 Other nonspecific abnormal finding of lung field (principal)
CPT/HCPCS: 71250

== ENCOUNTER 2024-11-11 07:26 | Outpatient (OUT) | payer MEDICARE, SELFPAY ==
--- OUTSIDE RECORDS SUMMARY | 2024-11-11 07:31 | XMS_ITS | CCD ---
Author Organization [facility] Care Team Providers Care Collection Manager Name Role Phone MILDRED CORRAL Primary Care Physician [phone] AICHHOLZ, DIRECTOR MICROBIOLOGY MILDRED Admitting Unavailable AICHHOLZ, DIRECTOR MICROBIOLOGY MILDRED Attending Unavailable AICHHOLZ, DIRECTOR MICROBIOLOGY MILDRED Primary Care Unavailable AICHHOLZ, DIRECTOR MICROBIOLOGY MILDRED Consulting Unavailable AICHHOLZ, DIRECTOR MICROBIOLOGY MILDRED Admitting Unavailable AICHHOLZ, DIRECTOR MICROBIOLOGY MILDRED Attending Unavailable AICHHOLZ, DIRECTOR MICROBIOLOGY MILDRED Primary Care Unavailable AICHHOLZ, DIRECTOR MICROBIOLOGY MILDRED Consulting Unavailable PATRICK VAZQUEZ Consulting Unavailable AICHHOLZ, DIRECTOR MICROBIOLOGY MILDRED Admitting Unavailable AICHHOLZ, DIRECTOR MICROBIOLOGY MILDRED Attending Unavailable AICHHOLZ, DIRECTOR MICROBIOLOGY MILDRED Primary Care Unavailable REDMAN ., DR BALDERRAMA Admitting Unavailable REDMAN ., DR BALDERRAMA Attending Unavailable AICHHOLZ, DIRECTOR MICROBIOLOGY MILDRED Primary Care Unavailable REDMAN ., DR BALDERRAMA Consulting Unavailable SAAB, MARSHA Consulting Unavailable REDMAN ., DR BALDERRAMA Admitting Unavailable REDMAN ., DR BALDERRAMA Attending Unavailable AICHHOLZ, DIRECTOR MICROBIOLOGY MILDRED Primary Care Unavailable REDMAN ., DR BALDERRAMA Consulting Unavailable COPPEROPOLIS, DR YAIMA Hughes Consulting Unavailable LAURA NEGRON Consulting Unavailable TAMLYN ., SARTHAK Admitting Unavailable TAMLYN ., SARTHAK Attending Unavailable AICHHOLZ, DIRECTOR MICROBIOLOGY MILDRED Primary Care Unavailable TAMLYN ., SARTHAK Consulting Unavailable OFELIA BOONE Consulting Unavailable CARIDAD MILLER Consulting Unavailable Mildred Corral Primary Care Provider [phone] Mildred Corral Attending Provider [phone] AICHFORDZ, MILDRED Attending Unavailable AICHHOLZ, MILDRED Attending Unavailable Pavan Dailey MD Primary Care Provider Mildred Corral Primary Care Provider [phone] [facility] Moni Attending Provider Moni Carpio Admitting Unavailable Moni Carpio Attending Unavailable Mildred Corral Primary Care Unavailable Mildred Corral Attending Unavailable Mildred Corral Primary Care Unavailable Mildred Corral Admitting Unavailable Aravind REDMAN Attending Unavailable Moni Carpio X Attending Unavailable Medications Current Medications Medication Drug Class(es) Dates Sig (Normalized) Sig (Original) aspirin 81 mg oral tablet (1 source) Platelet Aggregation Inhibitor, Nonsteroidal Anti-inflammatory Drug Start: 01-17-2022 take 1 tablet by mouth once daily Aspirin 81 mg Tab-EC 81 mg, Oral, Daily, Refills(s) 0, Blood Thinner Start Date: 01/17/22 Status: Ordered Aspirin 81 mg Tab-EC (1 source) Start: 01-17-2022 take 1 tablet by mouth once daily Aspirin 81 mg Tab-EC 81 mg, Oral, Daily, Refills(s) 0, Blood Thinner Start Date: 01/17/22 Status: Ordered atorvastatin 80 mg oral tablet (9 sources) HMG-CoA Reductase Inhibitor Start: 01-17-2022 End: 11-06-2024 take 1 tablet by mouth at bedtime atorvastatin (Lipitor) 80 MG tablet Indications: Type 2 diabetes mellitus without complication, without long-term current use of insulin (CMS/HCC) Take 1 tablet (80 mg) by mouth at bedtime 90 tablet 1 05/09/2024 08/07/2024 Active Blood Glucose Monitoring Suppl (Accu-Chek Estela Plus) w/Device kit (6 sources) Blood Glucose Monitoring Suppl (Accu-Chek Estela Plus) w/Device kit Active lisinopril 10 mg oral tablet (8 sources) Angiotensin Converting Enzyme Inhibitor Start: 01-17-2022 End: 08-07-2024 take 1 tablet by mouth once daily lisinopril 10 MG tablet Indications: Primary hypertension (CMS/HCC) Take 1 tablet (10 mg) by mouth Daily 90 tablet 1 05/09/2024 08/07/2024 Active loperamide hydrochloride 2 mg oral tablet (6 sources) Opioid Agonist take 1 tablet by mouth once for diarrhea loperamide (Imodium A-D) 2 MG tablet Take 2 mg by mouth if needed for diarrhea Active meloxicam 15 mg oral tablet (2 sources) Nonsteroidal Anti-inflammatory Drug Start: 01-17-2022 meloxicam 15 mg oral tablet 200 mg, Oral, Daily, Refills(s) 0, Arthritis Start Date: 01/17/22 Status: Ordered 24 hr metFORMIN hydrochloride 750 mg extended release oral tablet (8 sources) Biguanide Start: 05-09-2024 End: 08-07-2024 take 1 tablet by mouth every twenty-four [...] Start: 01-17-2022 take 1 tablet by khai twice daily metformin 750 mg ER Tab 750 mg, Oral, BID, Refills(s) 0, High blood sugar Start Date: 01/17/22 Status: Ordered tamsulosin hydrochloride 0.4 mg oral capsule (8 sources) alpha-Adrenergic Antonia Start: 02-12-2023 take 1 capsule by mouth once daily tamsulosin (Flomax) 0.4 MG 24 hr capsule Take 0.4 mg by mouth Daily 05/09/2024 Active Start: 01-17-2022 take 1 capsule by mo [facility] once daily tamsulosin 0.4 mg Cap 0.4 mg = 1 cap(s), Oral, Daily, # 30 cap(s), Refills(s) 8, Pharmacy: [id number], 180, cm, 01/17/22 9:28:00 EDT, Height/Length Dosing, 112, kg, 01/17/22 9:28:00 EDT, Weight Dosing Start Date: 01/17/22 Status: Ordered Problems Active Problems Problem Classification Problem Date Documented Da te Episodic/Chronic Chronic obstructive pulmonary disease and bronchiectasis (8 sources) Centriacinar emphysema; 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: [Centrilobular emphysema] Onset: 06-03-2024 06-03-2024 Chronic Coronary atherosclerosis and other heart disease (6 sources) Coronary arteriosclerosis; 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: [Atherosclerotic heart disease of [place] coronary artery without angina pectoris] Onset: 12-04-2023 12-04-2023 Chronic Diabetes mellitus without complication (16 sources) Type 2 diabetes mellitus; 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: [Type 2 diabetes mellitus without complications] Onset: 11-05-2022 01-17-2022 Chronic Disorders of lipid metabolism (9 sources) Mixed hyperlipidemia; 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: [Mixed hyperlipidemia] Onset: 03-22-2022 01-17-2022 Chronic Essential hypertension (20 sources) Essential hypertension; 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: [Essential (primary) hypertension] Onset: 03-01-2022 Resolved: 06-03-2024 01-17-2022 Chronic Hyperplasia of prostate (8 sources) Weak urinary stream due to benign prostatic hypertrophy; 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: [Benign prostatic hyperplasia with lower urinary tract symptoms] Onset: 12-04-2023 12-04-2023 Chronic Osteoarthritis (8 sources) Arthritis; 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: [Osteoarthritis of bilateral hip joints] Onset: 12-04-2023 02-24-2022 Chronic Other aftercare (1 source) 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; 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: [GOLF MANAGER USE ORAL HYPOGLYCEMIC DX] Onset: 12-06-2022 Episodic Other and unspecified benign neoplasm (1 source) Personal history of colonic polyps; 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: [PERSONAL HISTORY OF COLONIC POLYPS] Onset: 12-06-2022 Episodic Other lower respiratory disease (9 sources) Multiple nodules of lung; 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: [Other nonspecific abnormal finding of lung field] Onset: 12-25-2023 07-15-2024 Episodic Other nutritional; endocrine; and metabolic disorders (8 sources) Body mass index 30+ - obesity; 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: [Body mass index (BMI) 32.0-32.9, adult] Onset: 12-04-2023 12-04-2023 Chronic Spondylosis; intervertebral disc disorders; other back problems (2 sources) Degeneration of lumbar intervertebral disc 02-24-2022 Chronic Substance-related disorders (11 sources) Smoker; 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: [Nicotine dependence, cigarettes, uncomplicated] Onset: 12-06-2022 01-17-2022 Chronic Comment on above: Added secondary to d ocumentation in Social History. 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; 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: [GOLF MANAGER CURRNT USE ANTICOAGULANTS] Onset: 03-01-2022 Episodic Other and unspecified benign neoplasm (6 sources) History of adenomatous polyp of colon; 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: [History of adenomatous polyp of colon] Onset: 12-04-2023 12-04-2023 Episodic Other lower respiratory disease (1 source) Other nonspecific abnormal finding of lung field; 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: [Other nonspecific abnormal finding of lung field] Onset: 03-25-2024 Episodic Other non-epithelial cancer of skin (6 sources) Squamous cell carcinoma of hand; 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: [Squamous cell carcinoma of skin of left upper limb, including shoulder] Onset: 12-04-2023 12-04-2023 Episodic Other screening for suspected conditions (not mental disorders or infectious disease) (20 sources) Encounter for screening for malignant neoplasm of colon; 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: [Encounter for screening for malignant neoplasm of prostate] Onset: 03-22-2022 Episodic Pancreatic disorders (not diabetes) (6 sources) Pancreatitis; 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: [Acute pancreatitis without necrosis or infection, unspecified] Onset: 12-04-2023 12-04-2023 Episodic Residual codes; unclassified (1 source) Procedure and treatment not carried out for other reasons; 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: [PROC AND TX NOT CARRIED OUT OTH REASONS] Onset: 03-01-2022 Episodic Residual codes; unclassified (6 sources) Tobacco user; 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: [Tobacco use] Onset: 12-04-2023 12-04-2023 Episodic Results Test Name Value Interpretation Reference Range Facility MR prostate wo harlan 10-23-2 024 [place] [address] MRI Report Signed Patient: Hakeem Stark MR#: [id number] : 1955 Acct:[id number] Age/Sex: 69 / M ADM Date: 07/29/24 Loc: MR Room: Type: [facility] Attending Dr: Moni SANCHEZ Copies to: DANIEL [...] cancer. Impression dictated by: Galen Wadsworth Jr., D.O.07/31/2024 12:48 PM Dictation Location: [facility] [address] Transcribed By: [facility] 07/31/24 1248 Dictated By: Galen Wadsworth Jr, DO 07/31/24 1231 Signed By: 07/31/24 1248 Normal [facility] ISTAT XRay CREon 07-29-2024 ISTAT GFR > 60.0 Normal [facility] Comment on above: Result Comment: PERF ORMED BY: [place] [address] PATHOLOGIST TILER ONEYDA GUEVARA M.D. Performed By: #### I SCRE #### [address] No Panel InformationOrdered By: Moni Carpio on 07-29-2024 Bedside Estimated GFR (eGFR) > 60.0 [facility] Whole blood creatinine measu rementOrdered By: Moni Carpio on 07-29-2024 Creatinine [Mass/Vol] 1.0 mg/dL Normal 0.6-1.3 [facility] Comment on above: ER/ESD physician is notified/shown all ISTAT results.Critical values may be confirmed by laboratory testing ifdeemed necessary by ER attending doctor. Result Comment: ER/E SD physician is notified/shown all ISTAT results. Critical values may be confirmed by laboratory testing if deemed necessary by ER attending doctor. Performed By: #### I SCRE #### [facility] [address] Ambulatory Visit Summaryon 0 06-25-2024 Ambulatory Visit [...] Up with SENG Carpio APRN, Moni Ferguson, KARISSA, URL When: Comments: pending MRI Where: Medications [...] tract infectio (more content not included)... Normal [facility] Capillary blood glucose alex urement by glucometer (mass/volume)Ordered By: Mildred Corral on 03-25-2024 Glucose [Mass/Vol] 130 mg/dL Normal [facility] Comment on above: Random Glucose Refer ence Range is dependent on time and content of last meal. Glucose of more than 200 mg/dL in a nonstressed, ambulatory subject supports the diagnosis of Diabetes Mellitus. Result Comment: [facility] Glucose Reference Range is dependent on time and content of last meal. Glucose of more than 200 mg/dL in a nonstressed, ambulatory subject supports the diagnosis of Diabetes Mellitus. PERFORMED BY: [place] [address] PATHOLOGIST TILER ONEYDA GUEVARA M.D. Performed By: #### G LULS #### Point of Care testing , PET tumor init tx [facility] sb-m ton 03-25-2024 PET tumor init tx [facility] [place] [address] Nuclear Medicine Report Signed Patient: Hakeem Stark MR#: [id number] : 1955 Acct:[id number] Age/Sex: 68 / M ADM Date: 03/25/24 Loc: Room: Type: [facility] Attending Dr: Mildred Corral Copies to: Galen [...] suggested. Impression dictated by: Galen Wadsworth Jr., D.ODeshaun03/25/2024 11:58 AM Dictation Location: [place] [address] Transcribed By: [facility] 03/25/24 1158 Dictated By: Galen Wadsworth Jr, DO 03/25/24 1150 Signed By: 03/25/24 1158 Normal [facility] Glucose Poct Glucometerson 0 03-18-2024 Glucose [Mass/Vol] 115 mg/dL Normal [facility] Comment on above: Result Comment: [facility] Glucose Reference Range is dependent on time and content of last meal. Glucose of more than 200 mg/dL in a nonstressed, ambulatory subject supports the diagnosis of Diabetes Mellitus. PERFORMED BY: [facility] [address] [place] [id number] PATHOLOGIST TILER ONEYDA GUEVARA M.D. Performed By: #### G BATOOL #### Point of Care testing , CT [...] Please consider referral for smoking cessation to [facility] Medication Therapy Management (MTM) if clinically [...] two extremes (Agatston score 101-1000). [email or web address]://pubs.rsna.o rg/doi/abs/[email or web address]/ [email or web address] Electronically authenticated by: PATRICK VAZQUEZ Date: 2022-11-05 20:06 Normal [facility] GLYCOHEMOGLOBIN A1Con 2022 ADA RECOMMENDATION SEE BELOW Normal [facility] Comment on above: Result Comment: ADA RECOMMENDED LIMIT 4.0 - 6.0 ADA THERAPEUTIC TARGET < 7.0 ACTION SUGGESTED > 7.0 Performed By: #### A 1C #### [facility] [address] [place] [address] [address] Gigi To Glucose [Mass/Vol] 117 mg/dL Normal [facility] Comment on above: Performed By: #### A 1C #### [facility] [address] [address] [address] Gigi To HbA1c (Bld) [Mass fraction] 5.7 % Normal 4.5-6.2 [facility] Comment on above: Performed By: #### A 1C #### [facility] [address] [address] [address] Gigi To PROF CHEM 8 (BAS METB)on Anion gap [Moles/Vol] 16.1 mmol/L Normal [facility] Comment on above: Performed By: #### B MP #### [facility] [address] [address] [address] Gigi To Calcium [Mass/Vol] 9.4 mg/dL Normal 8.5-10.1 [facility] Comment on above: Performed By: #### B MP #### [facility] [address] [place] [address] Dr. Gigi To Chloride [Moles/Vol] 105 mmol/L Normal 98-107 [facility] Comment on above: Performed By: #### B MP #### [facility] [address] [address] [address] Gigi To CO2 [Moles/Vol] 25.8 mmol/L Normal 21.0-32.0 [facility] Comment on above: Performed By: #### B MP #### [facility] [address] [place] [address] Dr. Gigi To Creatinine [Mass/Vol] 1.02 mg/dL Normal 0.70-1.30 [facility] Comment on above: Performed By: #### B MP #### [facility] [address] [place] [address] Dr. Gigi To EGFR-AF QATARI >60 Normal >=60 [facility] Comment on above: Performed By: #### B MP #### [facility] [address] [place] [address] Dr. Gigi To EGFR-NON AF QATARI >60 Normal >=60 [facility] Comment on above: Performed By: #### B MP #### [facility] [address] [address] [address] Gigi To Glucose [Mass/Vol] 109 mg/dL Critically high 74-106 T [facility] Comment on above: Performed By: #### B MP #### [facility] [address] [place] [address] Dr. Gigi To Potassium [Moles/Vol] 4.9 mmol/L Normal 3.5-5.1 [facility] Comment on above: Performed By: #### B MP #### [facility] [address] [place] [address] Dr. Gigi To Sodium [Moles/Vol] 142 mmol/L Normal 136-145 [facility] Comment on above: Performed By: #### B MP #### [facility] [address] [place] [address] Dr. Gigi To Urea nitrogen [Mass/Vol] 25.0 mg/dL Critically high 7.0-18.0 [facility] Comment on above: Performed By: #### B MP #### [facility] [address] [place] [address] Dr. Gigi To Urea nitrogen/Creatinine [Mass ratio] 24.5 mg/mg Normal [facility] Comment on above: Performed By: #### B MP #### [facility] [address] [place] [address] Dr. Gigi To CBC AUTO DIFFon 03-19-2022 BASO # 0.1 103/ul Normal 0.0-0.1 [facility] Comment on above: Performed By: #### C BC #### [facility] [address] [place] [address] Dr. Gigi To Basophils/100 WBC (Bld) 0.5 % Normal 0.2-2.0 [facility] Comment on above: Performed By: #### C BC #### [facility] [address] [place] [address] Dr. Gigi To EO # 0.3 103/ul Normal 0.0-0.7 [facility] Comment on above: Performed By: #### C BC #### [facility] [address] [place] [address] Dr. Gigi To Eosinophils/100 WBC (Bld) 2.7 % Normal 0.9-7.0 [facility] Comment on above: Performed By: #### C BC #### [facility] [address] [place] [address] Dr. Gigi To Erythrocyte distribution width (RBC) [Ratio] 14.0 % Normal 11.0-15.0 [facility] Comment on above: Performed By: #### C BC #### [facility] [address] [place] [address] Dr. Gigi To Hematocrit (Bld) [Volume fraction] 43.7 % Normal 42.0-54.0 [facility] Comment on above: Performed By: #### C BC #### [facility] [address] [place] [address] Dr. Gigi To Hemoglobin (Bld) [Mass/Vol] 14.4 g/dL Normal 14.0-18.0 [facility] Comment on above: Performed By: #### C BC #### [facility] [address] [place] [address] Dr. Gigi To IG # 0.03 10e3/ul Normal 0.00-0.03 [facility] Comment on above: Performed By: #### C BC #### [facility] [address] [place] [address] Dr. Gigi To IG % 0.3 % Normal 0.0-0.5 [facility] Comment on above: Performed By: #### C BC #### [facility] [address] [place] [address] Dr. Gigi To LYMPH # 2.9 103/ul Normal 1.2-3.8 [facility] Comment on above: Performed By: #### C BC #### [facility] [address] [place] [address] Dr. Gigi To Lymphocytes/100 WBC (Bld) 29.4 % Normal 20.5-60.0 [facility] Comment on above: Performed By: #### C BC #### [facility] [address] [place] [address] Dr. Gigi To MANUAL DIFF REQ NO Normal [facility] Comment on above: Performed By: #### C BC #### [facility] [address] [place] [address] Dr. Gigi To MCH (RBC) [Entitic mass] 32.2 pg Normal 25.9-34.0 [facility] Comment on above: Performed By: #### C BC #### [facility] [address] [place] [address] Dr. Gigi To MCHC (RBC) [Mass/Vol] 33.0 g/dL Normal 29.9-35.2 [facility] Comment on above: Performed By: #### C BC #### [facility] [address] [place] [address] Dr. Gigi To MCV (RBC) [Entitic vol] 97.8 fL Critically high 80.0-94.0 [facility] Comment on above: Performed By: #### C BC #### [facility] [address] [place] [address] Dr. Gigi To MONO # 0.8 103/ul Normal 0.3-0.8 [facility] Comment on above: Performed By: #### C BC #### [facility] [address] [place] [address] Dr. Gigi To Monocytes/100 WBC (Bld) 8.6 % Normal 1.7-12.0 [facility] Comment on above: Performed By: #### C BC #### [facility] [address] [place] [address] Dr. Gigi To NEUT # 5.7 103/ul Normal 1.4-6.5 [facility] Comment on above: Performed By: #### C BC #### [facility] [address] [place] [address] Dr. Gigi To Neutrophils/100 WBC (Bld) 58.5 % Normal 43.0-75.0 [facility] Comment on above: Performed By: #### C BC #### [facility] [address] [place] [address] Dr. Gigi To Platelet mean volume (Bld) [Entitic vol] 8.7 fL Critically low 9.5-13.5 [facility] Comment on above: Performed By: #### C BC #### [facility] [address] [place] [address] Dr. Gigi To PLT 280 103/ul Normal 150-450 [facility] Comment on above: Performed By: #### C BC #### [facility] [address] [place] [address] Dr. Gigi To RBC 4.47 106/ul Critically low 4.70-6.10 [facility] Comment on above: Performed By: #### C BC #### [facility] [address] [place] [address] Dr. Gigi To WBC 9.8 103/ul Normal 4.0-11.0 [facility] Comment on above: Performed By: #### C BC #### [facility] [address] [place] [address] Dr. Gigi To GLYCOHEMOGLOBIN A1Con 2021 ADA RECOMMENDATION SEE BELOW Normal [facility] Comment on above: Result Comment: ADA RECOMMENDED LIMIT 4.0 - 6.0 ADA THERAPEUTIC TARGET < 7.0 ACTION SUGGESTED > 7.0 Performed By: #### A 1C #### [facility] [address] [place] [address] Dr. Gigi To Glucose [Mass/Vol] 126 mg/dL Normal [facility] Comment on above: Performed By: #### A 1C #### [facility] [address] [place] [address] Dr. Gigi To HbA1c (Bld) [Mass fraction] 6.0 % Normal 4.5-6.2 [facility] Comment on above: Performed By: #### A 1C #### [facility] [address] [place] [address] Dr. Gigi To LIPID PROFILEon 03-19-2022 CHOL-HDL RATIO NORM SEE BELOW Normal [facility] Comment on above: Result Comment: 3.3 - 4.4 LOW RISK 4.4 - 7.1 AVERAGE RISK 7.1 - 11.0 MODERATE RISK >11.0 HIGH RISK Performed By: #### L IPID, CMP #### [facility] [address] [address] [address] Gigi To Cholesterol [Mass/Vol] 105 mg/dL Normal <=200 [facility] Comment on above: Performed By: #### L IPID, CMP #### [facility] [address] [address] [address] Gigi To Cholesterol in HDL [Mass/Vol] 29 mg/dL Critically low 40-60 [facility] Comment on above: Performed By: #### L IPID, CMP #### [facility] [address] [address] [address] Gigi To Cholesterol in LDL [Mass/Vol] 26.8 mg/dL Normal [facility] Comment on above: Performed By: #### L IPID, CMP #### [facility] [address] [address] [address] Gigi To Cholesterol.total/Chol esterol in HDL [Mass ratio] 3.6 {ratio} Normal [facility] Comment on above: Performed By: #### L IPID, CMP #### [facility] [address] [address] [address] Gigi To HDL NORMAL > or = 60 mg/dl - LOW CARDIOVASCULAR RISK <40 mg/dl - HIGH CARDIOVASCULAR RISK Normal [facility] Comment on above: Performed By: #### L IPID, CMP #### [facility] [address] [address] [address] Gigi To LDL CALC NORMAL SEE BELOW Normal [facility] Comment on above: Result Comment: <100 mg/dl OPTIMAL 100 - 129 mg/dl NEAR OR ABOVE OPTIMAL 130 - 159 mg/dl BORDERLINE HIGH 160 - 189 mg/dl HIGH >190 mg/dl VERY HIGH Performed By: #### L IPID, CMP #### [facility] [address] [address] [address] Gigi To Triglyceride [Mass/Vol] 246 mg/dL Critically high <=150 [facility] Comment on above: Performed By: #### L IPID, CMP #### [facility] [address] [place] [address] Dr. Gigi To VLDL CALC 49.2 mg/dL Normal [facility] Comment on above: Performed By: #### L IPID, CMP #### [facility] [address] [address] [address] Gigi To MICROALBUMIN, RAND URon 03-09 mALB 1.5 mg/L Normal <=30.0 [facility] Comment on above: Performed By: #### M ALBR #### [facility] [address] [place] [address] Dr. Gigi To PROF 14(COMP METB)on 022 Albumin [Mass/Vol] 3.9 g/dL Normal 3.4-5.0 [facility] Comment on above: Performed By: #### L IPID, CMP #### [facility] [address] [place] [address] Dr. Gigi To Albumin/Globulin [Mass ratio] 1.1 {ratio} Normal [facility] Comment on above: Performed By: #### L IPID, CMP #### [facility] [address] [place] [address] Dr. Gigi To ALP [Catalytic activity/Vol] 42 U/L Critically low 46-116 [facility] Comment on above: Performed By: #### L IPID, CMP #### [facility] [address] [place] [address] Dr. Gigi To ALT [Catalytic activity/Vol] 30 U/L Normal 16-63 [facility] Comment on above: Performed By: #### L IPID, CMP #### [facility] [address] [place] [address] Dr. Gigi To Anion gap [Moles/Vol] 14.5 mmol/L Normal [facility] Comment on above: Performed By: #### L IPID, CMP #### [facility] [address] [place] [address] Dr. Gigi To AST [Catalytic activity/Vol] 17 U/L Normal 15-37 [facility] Comment on above: Performed By: #### L IPID, CMP #### [facility] [address] [place] [address] Dr. Gigi To Bilirubin [Mass/Vol] 0.4 mg/dL Normal 0.2-1.0 [facility] Comment on above: Performed By: #### L IPID, CMP #### [facility] [address] [place] [address] Dr. Gigi To Calcium [Mass/Vol] 9.4 mg/dL Normal 8.5-10.1 [facility] Comment on above: Performed By: #### L IPID, CMP #### [facility] [address] [place] [address] Dr. Gigi To Chloride [Moles/Vol] 105 mmol/L Normal 98-107 [facility] Comment on above: Performed By: #### L IPID, CMP #### [facility] [address] [place] [address] Dr. Gigi To CO2 [Moles/Vol] 27.7 mmol/L Normal 21.0-32.0 [facility] Comment on above: Performed By: #### L IPID, CMP #### [facility] [address] [place] [address] Dr. Gigi To Creatinine [Mass/Vol] 1.00 mg/dL Normal 0.70-1.30 [facility] Comment on above: Performed By: #### L IPID, CMP #### [facility] [address] [place] [address] Dr. Gigi To EGFR-AF QATARI >60 Normal >=60 [facility] Comment on above: Performed By: #### L IPID, CMP #### [facility] [address] [place] [address] Dr. Gigi To EGFR-NON AF QATARI >60 Normal >=60 [facility] Comment on above: Performed By: #### L IPID, CMP #### [facility] [address] [place] [address] Dr. Gigi To Globulin (S) [Mass/Vol] 3.5 g/dL Normal [facility] Comment on above: Performed By: #### L IPID, CMP #### [facility] [address] [address] [address] Gigi To Glucose [Mass/Vol] 108 mg/dL Critically high 74-106 [facility] Comment on above: Performed By: #### L IPID, CMP #### [facility] [address] [address] [address] Gigi To Potassium [Moles/Vol] 4.2 mmol/L Normal 3.5-5.1 [facility] Comment on above: Performed By: #### L IPID, CMP #### [facility] [address] [address] [address] Gigi To Protein [Mass/Vol] 7.4 g/dL Normal 6.4-8.2 [facility] Comment on above: Performed By: #### L IPID, CMP #### [facility] [address] [place] [address] Dr. Gigi To Sodium [Moles/Vol] 143 mmol/L Normal 136-145 [facility] Comment on above: Performed By: #### L IPID, CMP #### [facility] [address] [address] [address] Gigi To Urea nitrogen [Mass/Vol] 21.0 mg/dL Critically high 7.0-18.0 [facility] Comment on above: Performed By: #### L IPID, CMP #### [facility] [address] [address] [address] Gigi To Urea nitrogen/Creatinine [Mass ratio] 21.0 mg/mg Normal [facility] Comment on above: Performed By: #### L IPID, CMP #### [facility] [address] [address] [address] Gigi To CHEMISTRYOrdered By: Lab ROP User on 02-24-2022 Glucose [Mass/Vol] 119 mg/dL High 55 - 99 mg/dL [facility] Subsection Comment on above: Result Comment: Isha priti Meter POC Device SN [id number] Invalid Interpretation [place] [facility] POC User ID [id number] Invalid Interpretation Code [facility] [place]section POC Username IQRA DODSON Invalid Interpretation Code [facility] [place] Subsection XR KUB 1 VIEWon 02-24-2022 [...] Stable left nephrolithiasis Electronically authenticated by: YAIMA NONOAN Date: 2022-02-24 07:22 Normal [facility] CBC AUTO DIFFon 02-21-2022 BASO # 0.1 103/ul Normal 0.0-0.1 [facility] Comment on above: Performed By: #### A 1C #### [facility] [address] [place] [address] Dr. Gigi To Basophils/100 WBC (Bld) 0.6 % Normal 0.2-2.0 [facility] Comment on above: Performed By: #### A 1C #### [facility] [address] [address] [address] Gigi To EO # 0.2 103/ul Normal 0.0-0.7 [facility] Comment on above: Performed By: #### A 1C #### [facility] [address] [address] [address] Gigi To Eosinophils/100 WBC (Bld) 1.9 % Normal 0.9-7.0 [facility] Comment on above: Performed By: #### A 1C #### [facility] [address] [address] [address] Gigi To Erythrocyte distribution width (RBC) [Ratio] 14.3 % Normal 11.0-15.0 [facility] Comment on above: Performed By: #### A 1C #### [facility] [address] [place] [address] Dr. Gigi To Hematocrit (Bld) [Volume fraction] 40.4 % Critically low 42.0-54.0 [facility] Comment on above: Performed By: #### A 1C #### [facility] [address] [address] [address] Gigi To Hemoglobin (Bld) [Mass/Vol] 13.4 g/dL Critically low 14.0-18.0 [facility] Comment on above: Performed By: #### A 1C #### [facility] [address] [address] [address] Gigi To IG # 0.02 10e3/ul Normal 0.00-0.03 [facility] Comment on above: Performed By: #### A 1C #### [facility] [address] [place] [address] Dr. Gigi To IG % 0.3 % Normal 0.0-0.5 [facility] Comment on above: Performed By: #### A 1C #### [facility] [address] [place] [address] Dr. Gigi To LYMPH # 2.4 103/ul Normal 1.2-3.8 [facility] Comment on above: Performed By: #### A 1C #### [facility] [address] [place] [address] Dr. Gigi To Lymphocytes/100 WBC (Bld) 30.7 % Normal 20.5-60.0 [facility] Comment on above: Performed By: #### A 1C #### [facility] [address] [place] [address] Dr. Gigi To MANUAL DIFF REQ NO Normal [facility] Comment on above: Performed By: #### A 1C #### [facility] [address] [place] [address] Dr. Gigi To MCH (RBC) [Entitic mass] 31.8 pg Normal 25.9-34.0 [facility] Comment on above: Performed By: #### A 1C #### [facility] [address] [place] [address] Dr. Gigi To MCHC (RBC) [Mass/Vol] 33.2 g/dL Normal 29.9-35.2 [facility] Comment on above: Performed By: #### A 1C #### [facility] [address] [address] [address] Gigi To MCV (RBC) [Entitic vol] 95.7 fL Critically high 80.0-94.0 [facility] Comment on above: Performed By: #### A 1C #### [facility] [address] [address] [address] Gigi To MONO # 0.8 103/ul Normal 0.3-0.8 [facility] Comment on above: Performed By: #### A 1C #### [facility] [address] [address] [address] Gigi To Monocytes/100 WBC (Bld) 10.0 % Normal 1.7-12.0 [facility] Comment on above: Performed By: #### A 1C #### [facility] [address] [place] [address] Dr. Gigi To NEUT # 4.4 103/ul Normal 1.4-6.5 [facility] Comment on above: Performed By: #### A 1C #### [facility] [address] [address] [address] Gigi To Neutrophils/100 WBC (Bld) 56.5 % Normal 43.0-75.0 [facility] Comment on above: Performed By: #### A 1C #### [facility] [address] [address] [address] Gigi To Platelet mean volume (Bld) [Entitic vol] 9.1 fL Critically low 9.5-13.5 [facility] Comment on above: Performed By: #### A 1C #### [facility] [address] [address] [address] Gigi To PLT 256 103/ul Normal 150-450 [facility] Comment on above: Performed By: #### A 1C #### [facility] [address] [address] [address] Gigi To RBC 4.22 106/ul Critically low 4.70-6.10 [facility] Comment on above: Performed By: #### A 1C #### [facility] [address] [place] [address] Dr. Gigi To WBC 7.8 103/ul Normal 4.0-11.0 [facility] Comment on above: Performed By: #### A 1C #### [facility] [address] [place] [address] Dr. Gigi To PROF CHEM 8 (BAS METB)on Anion gap [Moles/Vol] 13.6 mmol/L Normal [facility] Comment on above: Performed By: #### B MP #### [facility] [address] [place] [address] Dr. Gigi To Calcium [Mass/Vol] 9.2 mg/dL Normal 8.5-10.1 [facility] Comment on above: Performed By: #### B MP #### [facility] [address] [place] [address] Dr. Gigi To Chloride [Moles/Vol] 104 mmol/L Normal 98-107 [facility] Comment on above: Performed By: #### B MP #### [facility] [address] [place] [address] Dr. Gigi To CO2 [Moles/Vol] 26.9 mmol/L Normal 21.0-32.0 [facility] Comment on above: Performed By: #### B MP #### [facility] [address] [place] [address] Dr. Gigi To Creatinine [Mass/Vol] 0.95 mg/dL Normal 0.70-1.30 [facility] Comment on above: Performed By: #### B MP #### [facility] [address] [place] [address] Dr. Gigi To EGFR-AF QATARI >60 Normal >=60 [facility] Comment on above: Performed By: #### B MP #### [facility] [address] [place] [address] Dr. Gigi To EGFR-NON AF QATARI >60 Normal >=60 [facility] Comment on above: Performed By: #### B MP #### [facility] [address] [place] [address] Dr. Gigi To Glucose [Mass/Vol] 121 mg/dL Critically high 74-106 [facility] Comment on above: Performed By: #### B MP #### [facility] [address] [address] [address] Gigi To Potassium [Moles/Vol] 4.5 mmol/L Normal 3.5-5.1 [facility] Comment on above: Performed By: #### B MP #### [facility] [address] [address] [address] Gigi To Sodium [Moles/Vol] 140 mmol/L Normal 136-145 [facility] Comment on above: Performed By: #### B MP #### [facility] [address] [address] [address] Gigi To Urea nitrogen [Mass/Vol] 15.0 mg/dL Normal 7.0-18.0 [facility] Comment on above: Performed By: #### B MP #### [facility] [address] [address] [address] Gigi oT Urea nitrogen/Creatinine [Mass ratio] 15.8 mg/mg Normal [facility] Comment on above: Performed By: #### B MP #### [facility] [address] [address] [address] Gigi To PROTIMEon 02-21-2022 INR Coag (PPP) [Relative time] 0.99 {INR} Normal [facility] Comment on above: Performed By: #### A 1C #### [facility] [address] [place] [address] Dr. Gigi To INR GUIDELINES SEE BELOW Normal [facility] Comment on above: Result Comment: ASHLEY RED INR: 2.0 - 3.0 CONDITIONS NOT LISTED BELOW 2.5 - 3.5 FOR PROSTHETIC HEART VALVE REPLACEMENT 2.5 - 3.5 RECURRENT THROMBOSIS Performed By: #### A 1C #### [facility] [address] [place] [address] Dr. Gigi To PT Coag (PPP) [Time] 10.7 s Normal 9.0-11.6 [facility] Comment on above: Performed By: #### A 1C #### [facility] [address] [place], [place] [address] Dr. Gigi To PTTon 02-21-2022 aPTT Coag (Bld) [Time] 26.2 s Normal 22.3-36.2 Th e [facility] Comment on above: Performed By: #### A 1C #### [facility] [address] [place], [place] [address] Dr. Gigi To Vital Signs Date Time Vital Sign Value Performing Clinician Facility 06-03-2024 08:37-0400 Body mass index (BMI) [Ratio] 32.64 kg/m2 Mildred Corral [employer] Work Phone: [facility] 06-03-2024 08:37-0400 Body temperature 97.9 [degF] Mildred Shayna [employer] Work Phone: [facility] 06-03-2024 08:37-0400 Body weight 106.14 kg Mildred Shayna [employer] Work Phone: [facility] 06-03-2024 08:37-0400 Diastolic blood pressure 80 mm[Hg] Mildred Shayna [employer] Work Phone: [facility] 06-03-2024 08:37-0400 Heart rate 89 /min Mildred Elmerz [employer] Work Phone: [facility] 06-03-2024 08:37-0400 SaO2% (BldA) [Mass fraction] 95 % Mildred Shayna [employer] Work Phone: [facility] 06-03-2024 08:37-0400 Systolic blood pressure 140 mm[Hg] Mildred Shayna [employer] Work Phone: [facility] 03-25-2024 07:46-0400 Body height 180.34 cm Mildred Gersonhholz Work Phone: [facility] 03-25-2024 07:46-0400 Body weight 104.32 kg Mildred Elmerz Work Phone: [facility] 02-24-2022 17:16-0400 Blood Pressure Location Aravindpasha [facility] 02-24-2022 17:16-0400 BP/Pulse Patient Position Aravindpasha [facility] 02-24-2022 17:16-0400 Diastolic blood pressure 80 mm[Hg] Aravindpasha [facility] 02-24-2022 17:16-0400 Heart rate 85 /min Aravindpasha [facility] 02-24-2022 17:16-0400 Mean blood pressure 103 mm[Hg] Aravindpasha [facility] 02-24-2022 17:16-0400 Respiratory rate 18 /min Aravindpasha [facility] 02-24-2022 17:16-0400 SaO2% (BldA) [Mass fraction] 97 % Aravindpasha [facility] 02-24-2022 17:16-0400 Systolic blood pressure 150 mm[Hg] Aravindpasha [facility] 02-24-2022 16:20-0400 Blood Pressure Location Aravindpasha [facility] 02-24-2022 16:20-0400 Diastolic blood pressure 90 mm[Hg] Aravindpasha [facility] 02-24-2022 16:20-0400 Heart rate 84 /min Aravindpasha [facility] 02-24-2022 16:20-0400 Respiratory rate 18 /min Aravidnpasha [facility] 02-24-2022 16:20-0400 SaO2% (BldA) [Mass fraction] 96 % Aravindpasha [facility] 02-24-2022 16:20-0400 Systolic blood pressure 150 mm[Hg] Aravind [facility] 02-24-2022 16:13-0400 Body temperature 97.34 [degF] Aravind [facility] 02-24-2022 16:13-0400 Diastolic blood pressure 95 mm[Hg] Aravind [facility] 02-24-2022 16:13-0400 Heart rate 94 /min Aravind [employer] [facility] 02-24-2022 16:13-0400 Respiratory rate 15 /min Aravind [employer] [facility] 02-24-2022 16:13-0400 SaO2% (BldA) [Mass fraction] 95 % Aravind [facility] 02-24-2022 16:13-0400 Systolic blood pressure 154 mm[Hg] Aravind [facility] 02-24-2022 16:00-0400 Respiratory rate 24 /min Aravind REMD[employer] [facility] 02-24-2022 15:55-0400 Respiratory rate 18 /min Aravind [facility] 02-24-2022 15:48-0400 Body temperature 97.16 [degF] Aravind [facility] 02-24-2022 15:45-0400 Respiratory rate 1 /min Aravind [employer] [facility] 02-24-2022 10:49-0400 Blood Pressure Location Aravind [employer] [facility] 02-24-2022 10:49-0400 Mean blood pressure 100 mm[Hg] Aravindpasha [facility] 02-24-2022 10:47-0400 Body temperature 98.06 [degF] Aravind [facility] 02-24-2022 10:47-0400 Mean blood pressure 115 mm[Hg] Aravind [facility] 02-24-2022 10:47-0400 Heart rate 96 /min Aravind [facility] Encounters Encounter Date Encounter Type Care Provider Facility Start: 12-16-2024 ambulatory Aravind R ЮЛИЯ Ibarrai ty:[facility] Start: 08-19-2024 End: 08-19-2024 Orders Only Mildred Corral [employer] Work Phone: [facility] Comment on above: Lung nodule, multipl e (Primary Dx) Start: 08-08-2024 End: 08-08-2024 Refill Mildred Corral [employer] Work Phone: [facility] Comment on above: Type 2 diabetes rah itus without complication, without long- term current use of insulin ([facility]) Start: 07-29-2024 End: 07-29-2024 Patient encounter procedure Mildred Corral Work Phone: [facility] [place] Work Phone: Start: 07-29-2024 End: 07-29-2024 ambulatory Mildred Corral Work Phone: [facility] Work Phone: Start: 07-15-2024 End: 07-15-2024 Orders Only Mildredjudd Corral [employer] Work Phone: [facility] Comment on above: Lung nodule, multipl e (Primary Dx) Start: 06-25-2024 End: 06-25-2024 ambulatory Moni X Orzech Facility:[facility] Start: 06-25-2024 End: 06-25-2024 Patient encounter procedure Moni X Orzech [facility] Start: 06-03-2024 End: 06-03-2024 Bamboo flowsheet Mildred Corral [employer] Work Phone: [facility] Start: 06-03-2024 End: 06-03-2024 Bamboo flowsheet Mildred Corral [employer] Work Phone: [facility] Start: 06-03-2024 End: 06-03-2024 Office outpatient visit 25 minutes Mildred Corral [employer] Work Phone: [facility] Comment on above: Primary hypertension (CMS/HCC) (Primary Dx); Centrilobular emphysema (CMS/HCC); BMI 32.0-32.9,adult; Type 2 diabetes mellitus without complication, without long-term current use of insulin (CMS/HCC); Cigarette nicotine dependence without complication; Rising PSA level Start: 06-03-2024 End: 06-03-2024 ambulatory MILDRED AICHHOLZ Not Available Start: 03-25-2024 End: 03-25-2024 Patient encounter procedure Mildredjudd Davilaholluis Work Phone: [facility] Work Phone: Start: 03-25-2024 End: 03-25-2024 ambulatory Mildred Alexa Corral Work Phone: [facility] Work Phone: Start: 12-04-2023 End: 12-04-2023 ambulatory MILDRED AICHHOLZ Not Available Start: 12-26-2022 ambulatory DIRECTOR MICROBIOLOGY MILDRED BERNADETTEHOLZ Facil ity:H1 Start: 12-02-2022 End: 12-02-2022 ambulatory SARTHAK STEPHENS . Facility:H1 Start: 11-05-2022 End: 11-06-2022 ambulatory DIRECTOR MICROBIOLOGY MILDRED AICHHOLZ Facility:H1 Start: 03-19-2022 End: 03-20-2022 ambulatory DIRECTOR MICROBIOLOGY MILDRED AICHHOLZ Facility:H1 Start: 02-25-2022 Encounter for other preprocedural examination DR ARAVIND REDMAN . [facility] Start: 02-25-2022 Encounter for preprocedural cardiovascular examination DR ARAVIND REDMAN . [facility] Start: 02-25-2022 Encounter for preprocedural laboratory examination DR ARAVIND REDMAN . [facility] Start: 02-24-2022 End: 02-24-2022 Admission to same day surgery center Aravind REDMAN [facility] Start: 02-24-2022 End: 02-24-[address] ARAVIND REDMAN . Facility:[facility]1 Start: 02-21-2022 End: 02-22-[address] ARAVIND REDMAN . Facility:[facility]1 Start: 02-21-2022 End: 02-22-2022 Encounter for preprocedural laboratory examination DR ARAVIND REDMAN . Facility:[facility]1 Procedures Date Procedure Procedure Detail Performing Clinician Start: 03-25-2024 Positron emission tomography with computed tomography Mildred Corral Work Phone: Start: 12-02-2022 Colonoscopy Mildred mejia [employer] Work Phone: Start: 03-19-2022 PSA screening DIRECTOR MICROBIOLOGY MILDRED CORRAL Comment on above: Performed By: #### P SAD #### [facility] [address] [place] [address] Dr. Gigi To Start: 02-24-2022 Extracorporeal shock wave lithotripsy of calculus of kidney Aravind REDMAN Colonoscopy Aravind REDMAN Plan of Treatment Date Care Activity Detail Author Start: 12-02-2027 Screening for malign ant neoplasm of colon [facility] Start: 06-03-2026 Glaucoma screening Diabetes: R etinopathy Screening [facility] Start: 05-23-2025 Glaucoma screening Diabetes: R etinopathy Screening [facility] Start: 05-06-2025 Urine screening for protein Diabetes: Urine Protein Screening [facility] Start: 12-02-2024 End: 12-02-2024 Patient encounter procedure 12/02/2024 8:40 AM EST Office Visit [facility] [address] [place] [address] Mildred Corral NP [address] [place] [phone] [facility] Start: 11-06-2024 Hemoglobin A1c measurement Diabetes: Hemoglobin A1C [facility] Start: 07-29-2024 MR prostate wo con MR prostate wo co n [facility] Start: 07-29-2024 MR Prostate WO contrast [facility] Start: 07-15-2024 End: 07-15-2025 CT Chest for screening WO contrast Lung screening follow up CT chest wo IV contrast Imaging Routine Lung nodule, multiple Expected: 07/15/2024 (Approximate), Expires: 07/15/2025 [facility] Work Phone: Comment on above: Expected: 07/15/2024 (Approximate), Expires: 07/15/2025 Start: 06-03-2024 End: 06-03-2024 Patient encounter procedure 06/03/2024 8:40 AM EDT Office Visit [facility] [address] [place] [id number] Mildred Corral NP [address] [place] [phone] [facility] Comment on above: Centrilobular emphys susan (CMS/HCC) Start: 12-05-2023 Screening for malign ant neoplasm of colon [facility] Start: 1955 Screening for malign ant neoplasm of colon [facility] Immunizations Immunization Date Immunization Notes Care Provider Fa cility 03-15-2021 SARS-CoV-2 (COVID-19 ) mRNA BNT-162b2 alejandro REDMAN [facility] 02-27-2021 SARS-CoV-2 (COVID-19 ) mRNA BNT-162b2 alejandro REDMAN [facility] Payers Date Payer Category Payer Self-pay 2024 Medicare [id number] 2021 Private Health Insurance [id number] 1959 Private Health Insurance [id number] 1955 Unknown [id number] 2.16.84 [id number] 1953 Unknown [id number] 2.16.84 [id number] 1953 Unknown [id number] 2.16.84 [id number] 1953 Unknown [id number] 2.16.84 [id number] 1953 Unknown [id number] 2.16.84 [id number] 1953 Unknown [id number] 2.16.84 [id number] 1953 Unknown [id number] 2.16.84 [id number] 1953 Unknown [id number] 2.16.84 [id number] 1953 Unknown [id number] 2.16.8 [id number] 1955 Unknown [id number] 2.16.8 [id number] Unknown [id number] 2.16.8 [id number] Unknown [id number] 2.16.8 [id number] Social History Date Type Detail Facility Tobacco Unknown if ever smoked [facility] Comment on above: 10/10 ppd cigarettes Start: 12-04-2023 End: 06-03-2024 Sex Assigned At Male [facility] Start: 1955 Sex Assigned At Male [facility] Start: 12-04-2023 End: 06-03-2024 Tobacco smoking status NHIS Smokes tobacco daily [facility] History of tobacco use Cigarette Smoker [facility] Start: 12-04-2023 End: 06-03-2024 Tobacco use and exposure Smokeless tobacco non-user [facility] Start: 12-13-2023 End: 06-03-2024 Alcoholic beverage intake Ex-drinker (finding) [facility] Start: 12-04-2023 End: 06-03-2024 History of Social function [facility] Start: 12-04-2023 Alcohol Comment coffee: 2-3 cups [facility] Start: 1955 Sex assigned at Not on file N [facility] Tobacco smoking status No Smokin g Status Entered [facility] Functional Status Date Assessment Result Facility 06-25-2024 Functional Status N/A [facility] Clinical Notes 02-24-2022 to 06-25-2024 Mildred Corral NP - 06/03/2024 9:09 AM Jose Corral NP - 06/03/2024 9:07 AM Jose Corral NP - 06/03/2024 9:06 AM Jose Corral NP - 06/03/2024 9:06 AM EDT Note Date & Type Note Facility 06-25-2024 Hospital Discharge instructions Patient Education 06/25/2024 13:09:38 Prostate Cancer Screening Prostate Cancer Screening Prostate cancer screening is [...] recommendations. In general, screening is recommended if: You are age 50 to 70 and [...] have a 10- to 15-year life expectancy. You are younger than age 50, and you have these risk factors: ?Having a father, brother, or uncle who has been diagnosed with prostate cancer. The risk is higher if your family member's cancer occurred at an early age or if you have multiple family members with prostate cancer at an early age. ?Being a male who is Black or is of [place] or sub-Saharan descent. In general, screening is not recommended if: You are younger than age 40. You are between the ages of 40 and 49 and you have no risk factors. You are 70 years of age or [...] high PSA levels may be caused by: Prostate cancer. An enlarged prostate that is not caused by cancer (benign prostatic hyperplasia, or BPH). This condition is very common in older men. A prostate gland infection (prostatitis) or urinary tract infection. Certain medicines such as male hormones (like [...] you may need more tests, such as: A physical exam to check the size of your prostate gland, if not done as part of screening. Blood and imaging tests. A procedure to remove tissue samples from your prostate gland for testing (biopsy). This is the only way to know for certain if you have prostate cancer. What are the benefits of prostate cancer screening? Screening can help to identify cancer at an early stage, before symptoms start and when the cancer can be treated more easily. There is a small chance that screening [...] Questions to ask your health care provider When should I start prostate cancer screening? What is my risk for prostate cancer? How often do I need screening? What type of screening tests do I need? How do I get my test results? What do my results mean? Do I need treatment? Where to find more information The [employer] Cancer Society: www.cancer.org [employer] U[employer] Association: www.auanet.org Contact a health care provider if: You have difficulty urinating. You have pain when you urinate or ejaculate. You have blood in your urine or semen. You have pain in your back or in the area of your prostate. Summary Prostate cancer is a common type of cancer in men. The prostate gland is located below the bladder and in front of the rectum. This gland adds fluid to semen during ejaculation. Prostate cancer screening may identify cancer at an early stage, when the cancer can be treated more easily and is less likely to have spread to other areas of the body. The prostate-specific antigen (PSA) test is the recommended screening test for prostate cancer, but it has associated risks. Discuss the risks and benefits of prostate cancer screening with your health care provider. If you are age 70 or older, the risks that screening can cause are greater than the benefits that it may provide. This information is not intended to replace advice given to you by your health care provider. Make sure you discuss any questions you have with your health care provider. Document Revised: 03/21/2022 Document Reviewed: 03/21/2022 [employer] Patient Education 2023 [employer]. 06/25/2024 13:09:32 Benign Prostatic Hyperplasia Benign Prostatic Hyperplasia Benign prostatic hyperplasia (BPH) is an enlarged prostate gland that is caused by the normal aging process. The prostate may get bigger as a man gets older. The condition is not caused by cancer. The prostate is a walnut-sized gland that is involved in the production of semen. It is located in front of the rectum and below the bladder. The bladder stores urine. The urethra carries stored urine out of the body. An enlarged prostate can press on the urethra. This can make it harder to pass urine. The buildup of urine in the bladder can cause infection. Back pressure and infection may progress to bladder damage and kidney (renal) failure. What are the causes? This condition is part of the normal aging process. However, not all men develop problems from this condition. If the prostate enlarges away from the urethra, urine flow will not be blocked. If it enlarges toward the urethra and compresses it, there will be problems passing urine. What increases the risk? This condition is more likely to develop in men older than 50 years. What are the signs or symptoms? Symptoms of this condition include: Getting up often during the night to urinate. Needing to urinate frequently during the day. Difficulty starting urine flow. Decrease in size and strength of your urine stream. Leaking (dribbling) after urinating. Inability to pass urine. This needs immediate treatment. Inability to completely empty your bladder. Pain when you pass urine. This is more common if there is also an infection. Urinary tract infection (UTI). How is this diagnosed? This condition is diagnosed based on your medical history, a physical exam, and your symptoms. Tests will also be done, such as: A post-void bladder scan. This measures any amount of urine that may remain in your bladder after you finish urinating. A digital rectal exam. In a rectal exam, your health care provider checks your prostate by putting a lubricated, gloved finger into your rectum to feel the back of your prostate gland. This exam detects the size of your gland and any abnormal lumps or growths. An exam of your urine (urinalysis). A prostate specific antigen (PSA) screening. This is a blood test used to screen for prostate cancer. An ultrasound. This test uses sound waves to electronically produce a picture of your prostate gland. Your health care provider may refer you to a specialist in kidney and prostate diseases (urologist). How is this treated? Once symptoms begin, your health care provider will monitor your condition (active surveillance or watchful waiting). Treatment for this condition will depend on the severity of your condition. Treatment may include: Observation and yearly exams. This may be the only treatment needed if your condition and symptoms are mild. Medicines to relieve your symptoms, including: ?Medicines to shrink the prostate. ?Medicines to relax the muscle of the prostate. Surgery in severe cases. Surgery may include: ?Prostatectomy. In this procedure, the prostate tissue is removed completely through an open incision or with a laparoscope or robotics. ?Transurethral resection of the prostate (TURP). In this procedure, a tool is inserted through the opening at the tip of the penis (urethra). It is used to cut away tissue of the inner core of the prostate. The pieces are removed through the same opening of the penis. This removes the blockage. ?Transurethral incision (TUIP). In this procedure, small cuts are made in the prostate. This lessens the prostate's pressure on the urethra. ?Transurethral microwave thermotherapy (TUMT). This procedure uses microwaves to create heat. The heat destroys and removes a small amount of prostate tissue. ?Transurethral needle ablation (TUNA). This procedure uses radio frequencies to destroy and remove a small amount of prostate tissue. ?Interstitial laser coagulation (ILC). This procedure uses a laser to destroy and remove a small amount of prostate tissue. ?Transurethral electrovaporization (TUVP). This procedure uses electrodes to destroy and remove a small amount of prostate tissue. ?Prostatic urethral lift. This procedure inserts an implant to push the lobes of the prostate away from the urethra. Follow these instructions at home: Take [id number] and prescription medicines only as told by your health care provider. Monitor your symptoms for any changes. Contact your health care provider with any changes. Avoid drinking large amounts of liquid before going to bed or out in public. Avoid or reduce how much caffeine or alcohol you drink. Give yourself time when you urinate. Keep all follow-up visits. This is important. Contact a health care provider if: You have unexplained back pain. Your symptoms do not get better with treatment. You develop side effects from the medicine you are taking. Your urine becomes very dark or has a bad smell. Your lower abdomen becomes distended and you have trouble passing urine. Get help right away if: You have a fever or chills. You suddenly cannot urinate. You feel light-headed or very dizzy, or you faint. There are large amounts of blood or clots in your urine. Your urinary problems become hard to manage. You develop moderate to severe low back or flank pain. The flank is the side of your body between the ribs and the hip. These symptoms may be an emergency. Get help right away. Call 911. Do not wait to see if the symptoms will go away. Do not drive yourself to the hospital. Summary Benign prostatic hyperplasia (BPH) is an enlarged prostate that is caused by the normal aging process. It is not caused by cancer. An enlarged prostate can press on the urethra. This can make it hard to pass urine. This condition is more likely to develop in men older than 50 years. Get help right away if you suddenly cannot urinate. This information is not intended to replace advice given to you by your health care provider. Make sure you discuss any questions you have with your health care provider. Document Revised: 04/13/2022 Document Reviewed: 04/13/2022 [employer] Patient Education 2023 [employer]. Follow Up Care 06/05/2024 09:20:17 With:SENG Carpio APRN, Moni Ferguson, KARISSA, URL Address: When: Unknown Comments:pending MRI [facility] 06-25-2024 Note Urology Office/Clini c Note HPI [...] with voice recognition artificial intelligence software, specifically [employer] and or [employer]. Substitutions may have occurred due to the [...] to proceed w/ MRI. -prostate MRI at [facility]. Pt knows that this could lead to [...] Urnls Dip Stick Auto w/o Microscopy POC 41416 2. BPH (benign prostatic hyperplasia) (N40.0: Benign [...] monitor Follow-up With When Contact Information [employer]PER[employer], CFA-C, Moni X, FAM, URL Additional Instructions: pending [...] Father. Immunizations Vaccine (more content not included)... [facility] Comment on above: Result Comment: Elec tronically Signed By: SENG Carpio APRN, Aurora X\.kay\Date and Time Signed: 06/25/24 13:10 EDT 06-25-2024 Note Patient Education Oncology Prostate Cancer [...] Where to find more information ? The French Cancer Society: www.cancer.org ? French Urological Association: www.auanet.org Contact a health care [...] of the rectum. (more content not included)... [facility] 06-03-2024 History of Present illness Narrative Associated Problem(s): Rising PSA level Has a rising PSA, as well as abnormal PET scan At this point we reviewed the labs, and PET scan and recommended that he see urology Referral was placed and pt did not receive a call, but also states he does not answer numbers he does not know . He has the number for urology, and I have requested that he contact them to schedule and let us know when He will do so Associated Problem(s): Cigarette nicotine dependence without complication The patient has been advised of the risks of continued smoking: stroke, NE, all forms of cancer, lung disease, and . Options for quitting smoking include: cold turkey, hypnosis, acupuncture, nicotine replacement meds (gum, lozenges, and patches), Buproprion, and Varenicline. At this time pt is encouraged to evaluate their goals for wanting to quit smoking, and reach out to provider when ready to start this process Associated Problem(s): Type 2 diabetes mellitus (CMS/HCC) A1c in range UTD on eye exam No changes in medications Associated Problem(s): Primary hypertension (CMS/HCC) At goal, no changes in meds Images from the original note were not included. Hakeem Stark is a 69 y.o. male presents with chief complaint of No chief complaint on file. HPI: Hypertension This is a chronic problem. The current episode started more than 1 year ago. The problem is unchanged. The problem is controlled. Pertinent negatives include no blurred vision, chest pain, neck pain, orthopnea, palpitations, peripheral edema or shortness of breath. There are no associated agents to hypertension. Risk factors for coronary artery disease include diabetes mellitus, dyslipidemia, obesity and smoking/tobacco exposure. Past treatments include MANDY inhibitors. The current treatment provides significant improvement. There are no compliance problems. Diabetes He presents for his follow-up diabetic visit. He has type 2 diabetes mellitus. His disease course has been stable. There are no hypoglycemic associated symptoms. Pertinent negatives for hypoglycemia include no dizziness, nervousness/anxiousness, seizures or tremors. Pertinent negatives for diabetes include no blurred vision, no chest pain, no foot paresthesias, no polydipsia and no polyuria. There are no hypoglycemic complications. Symptoms are stable. Pertinent negatives for diabetic complications include no heart disease, nephropathy or peripheral neuropathy. Risk factors for coronary artery disease include diabetes mellitus, dyslipidemia, hypertension, male sex, obesity and tobacco exposure. Current diabetic treatment includes oral agent (monotherapy). He is compliant with treatment all of the time. An MANDY inhibitor/angiotensin II receptor antonia is being taken. He does not see a councilor.Eye exam is current. SUBJECTIVE: MEDICATIONS: Current Outpatient Medications Medication Instructions atorvastatin (LIPITOR) 80 mg, Oral, Nightly Blood Glucose Monitoring Suppl (Accu-Chek Estela Plus) w/Device kit Does not apply lisinopril 10 mg, Oral, Daily loperamide (IMODIUM A-D) 2 mg, Oral, As needed metFORMIN XR (GLUCOPHAGE-XR) 750 mg, Oral, 2 times daily before meals tamsulosin (FLOMAX) 0.4 mg, Oral, Daily ALLERGIES: No Known Allergies REVIEW OF SYMPTOMS: Review of Systems Constitutional: Negative for activity change, appetite change and unexpected weight change. HENT: Negative for ear pain, nosebleeds, sneezing, trouble swallowing and voice change. Eyes: Negative for blurred vision, pain, discharge and visual disturbance. Respiratory: Negative for apnea, chest tightness, shortness of breath and wheezing. Cardiovascular: Negative for chest pain, palpitations, orthopnea and leg swelling. Gastrointestinal: Negative for abdominal distention, blood in stool, constipation and diarrhea. Genitourinary: Negative for decreased urine volume, difficulty urinating, dysuria and hematuria. Musculoskeletal: Negative for neck pain. Skin: Negative for color change. Neurological: Negative for dizziness, tremors and seizures. Psychiatric/Behavioral: Negative for agitation, decreased concentration, hallucinations, self-injury and suicidal ideas. The patient is not nervous/anxious. Hematological: Negative for adenopathy. Does not bruise/bleed easily. Endocrine: Negative for cold intolerance, heat intolerance, polydipsia and polyuria. Allergic/Immunologic: Negative for environmental allergies and food allergies. PAST MEDICAL HISTORY Past Medical History: Diagnosis Date CAD (coronary artery disease) ([facility]) 12/04/2023 Cigarette nicotine dependence without complication 12/04/2023 History of adenomatous polyp of colon 12/04/2023 Hyperlipidemia, mixed ([facility]) 12/04/2023 Hypertension [place] 12/04/2023 Kidney stone on left side 12/04/2023 Lumbar radiculopathy Osteoarthritis of both hips, unspecified osteoarthritis type 12/04/2023 Pancreatitis 12/04/2023 Tobacco user 12/04/2023 Type 2 diabetes mellitus ([facility]) 12/04/2023 History reviewed. No pertinent surgical history. family history is not on file. OBJECTIVE: Visit Vitals BP 140/80 Pulse 89 Temp 97.9 F Wt 234 lb SpO2 95% BMI 32.64 kg/m Smoking Status Every Day BSA 2.3 m Physical Exam Vitals and nursing note reviewed. Constitutional: Appearance: Normal appearance. HENT: Head: Normocephalic. Right Ear: External ear normal. Left Ear: External ear normal. Nose: Nose normal. Mouth/Throat: Mouth: Mucous membranes are moist. Pharynx: Oropharynx is clear. Eyes: Extraocular Movements: Extraocular movements intact. Conjunctiva/sclera: Conjunctivae normal. Neck: Vascular: No carotid bruit. Cardiovascular: Rate and Rhythm: Normal rate and regular rhythm. Pulses: Normal pulses. Heart sounds: Normal heart sounds. Pulmonary: Effort: Pulmonary effort is normal. Breath sounds: Normal breath sounds. Abdominal: General: Bowel sounds are normal. Palpations: Abdomen is soft. Musculoskeletal: Cervical back: Neck supple. Right lower leg: No edema. Left lower leg: No edema. Lymphadenopathy: Cervical: No cervical adenopathy. Skin: General: Skin is warm and dry. Capillary Refill: Capillary refill takes 2 to 3 seconds. Neurological: General: No focal deficit present. Mental Status: He is alert. Psychiatric: Mood and Affect: Mood normal. Behavior: Behavior normal. Thought Content: Thought content normal. Judgment: Judgment normal. ASSESSMENT AND PLAN: No follow-ups on file. Problem List Items Addressed This Visit Type 2 diabetes mellitus (CMS/HCC) A1c in range UTD on eye exam No changes in medications Cigarette nicotine dependence without complication The patient has been advised of the risks of continued smoking: stroke, NE, all forms of cancer, lung disease, and . Options for quitting smoking include: cold turkey, hypnosis, acupuncture, nicotine replacement meds (gum, lozenges, and patches), Buproprion, and Varenicline. At this time pt is encouraged to evaluate their goals for wanting to quit smoking, and reach out to provider when ready to start this process BMI 32.0-32.9,adult Rising PSA level Has a rising PSA, as well as abnormal PET scan At this point we reviewed the labs, and PET scan and recommended that he see urology Referral was placed and pt did not receive a call, but also states he does not answer numbers he does not know . He has the number for urology, and I have requested that he contact them to schedule and let us know when He will do so Centrilobular emphysema (CMS/HCC) Recommend to quit smoking Primary hypertension (CMS/HCC) - Primary At goal, no changes in meds Associated Problem(s): Centrilobular emphysema (CMS/HCC) Recommend to quit smoking documented in this encounter [facility] 02-24-2022 Hospital Discharge instructions Patient Education 02/24/2022 16:14:46 Lithotripsy, Care [...] Follow these instructions at home: Medicines Take euik-tbo-lfwydpq and prescription medicines only as told by [...] 10/14/2008 Document Revised: 01/06/2020 Document Reviewed: 08/16/2017 [employer] Patient Education 2020 [employer]. 02/24/2022 16:14:46 [id number] Utereroscopy,Lithotripsy, Stone Extraction, Stent Placement (Custom) [facility] [place], [place] Post-operative Instructions for Ureteroscopy, Laser Lithotripsy, [...] other reasons. 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 Extracted from: Title:Pre-anesthesia - Adult Author:Bradley Fields Jr., DO Date:02/24/22 Plan [employer] Anesthesiologists (ASA) physical status classification: Class III. Anesthetic Preoperative Plan Anesthesia: General. . Anesthetic plan, risks, benefits, and alternatives discussed with the patient and/or family. Patient verbalized understanding. Adverse reactions, complications, and alternatives discujssed. Consent signed and on chart.. [facility] information available [facility] Work Phone: Evaluation note* Diagnosis Lung nodule, multiple- Primary documented in this encounter [facility]* Diagnosis Type 2 diabetes mellitus without complication, without long-term current use of insulin (CMS/HCC)- Primary History of adenomatous polyp of colon Personal history of colonic polyps Primary hypertension (CMS/HCC) Unspecified essential hypertension Coronary artery disease involving [place] coronary artery of [place] heart without angina pectoris (CMS/HCC) Cigarette nicotine dependence without complication Tobacco user Tobacco use disorder BMI 32.0-32.9,adult Controlled type 2 diabetes mellitus without complication, without long-term current use of insulin (CMS/HCC) Benign prostatic hyperplasia with weak urinary stream Primary hypertension (CMS/HCC)- Primary Unspecified essential hypertension Centrilobular emphysema (CMS/HCC) BMI 32.0-32.9,adult Type 2 diabetes mellitus without complication, without long-term current use of insulin (CMS/HCC) Cigarette nicotine dependence without complication Rising PSA level Type 2 diabetes mellitus without complication, without long-term current use of insulin (CMS/HCC) documented in this encounter [facility]* Diagnosis Type 2 diabetes mellitus without complication, without long-term current use of insulin (CMS/HCC)- Primary History of adenomatous polyp of colon Personal history of colonic polyps Primary hypertension (CMS/HCC) Unspecified essential hypertension Coronary artery disease involving [place] coronary artery of [place] heart without angina pectoris (CMS/HCC) Cigarette nicotine dependence without complication Tobacco user Tobacco use disorder BMI 32.0-32.9,adult Controlled type 2 diabetes mellitus without complication, without long-term current use of insulin (CMS/HCC) Benign prostatic hyperplasia with weak urinary stream Primary hypertension (CMS/HCC)- Primary Unspecified essential hypertension Centrilobular emphysema (CMS/HCC) BMI 32.0-32.9,adult Type 2 diabetes mellitus without complication, without long-term current use of insulin (CMS/HCC) Cigarette nicotine dependence without complication Rising PSA level Lung nodule, multiple- Primary documented in this encounter [facility] HealthcareEvaluation note* Diagnosis Primary hypertension (CMS/HCC)- Primary Unspecified essential hypertension Centrilobular emphysema (CMS/HCC) BMI 32.0-32.9,adult Type 2 diabetes mellitus without complication, without long-term current use of insulin (CMS/HCC) Cigarette nicotine dependence without complication Rising PSA level documented in this encounter [facility] HealthcareHospital course Narrative No data available for this section [facility] No data available for this section [facility] Purpose Family History No Family History Records FoundNo Family History Records FoundNo Family History Records FoundNo Family History Records Found No data available for this section Advance Directives Advance Directive Response Recorded Date/ Time Advance Directives No March 06 4 2:20pm Chief Complaint and Reason for Visit Chief Complaint r91.8 Chief Complaint r97.20 Reason for Referral Specialty Diagnoses / Procedures Referred By Contac t Referred To Contact Diagnoses Lung nodule, multiple Procedures Lung screening follow up CT chest wo IV contrast Mildred Corral, CARLA [address] [place] [address] Referral ID Status Reason Start Date Expiration Date V isits Requested Visits Authorized [id number] Pending Review 07/15/2024 01/11/2025 1 1 Additional Source Comments (unrecognized sect ion and content) No Status Records FoundNo Status Records FoundNo Status Records FoundNo Status Records Found INFORMATION SOURCE (unrecogn ized section and content) DATE CREATED AUTHOR 12/23/2022 [facility] DATE CREATED AUTHOR AUTHOR'S ORGANIZ ATION 06/04/2024 [facility] EPIC DATE CREATED AUTHOR AUTHOR'S ORGANIZ ATION 08/04/2024 [facility] DATE CREATED AUTHOR AUTHOR'S ORGANIZ ATION 08/24/2024 [facility] Care Teams (unrecognized sec tion and content) Team Status: Active Member Role Status Dates Mildred Corral Primary Care Provider Active Team Status: Inactive Member Role Status Dates Mildred Corral Primary Care Provide r, Attending Provider Active Start: March 25, 2024 End: March 25, 2024 Collection Manager Relationship Specialty Start Date End Date Pavan Dailey MD [address] [place] [address] PCP - General Family Medicine 11/06/23 Team Status: Inactive Member Role Status Dates Mildred Corral Primary Care Provider Active Sta rt: July 29, 2024 End: July 29, 2024 [facility] Attending Provider Active Start: July 29, 2024 End: July 29, 2024 Collection Manager Relationship Specialty Start Date End Date Pavan Dailey MD [address] [place] [address] PCP - General Family Medicine 11/06/23 Collection Manager Relationship Specialty Start Date End Date Pavan Dailey MD [address] [place] [address] PCP - General Family Medicine 11/06/23 Collection Manager Relationship Specialty Start Date End Date Pavan Dailey MD [address] [place] [phone] PCP - General Family Medicine 11/06/23 Collection Manager Relationship Specialty Start Date End Date Pavan Dailey MD [address] [place] [phone] PCP - General Family Medicine 11/06/23 Goals [...] BE BASED ON THE PRIMARY CLINICAL RECORDS. [employer] [facility]. provides no warranty or guarantee of the accuracy or completeness of information in this document.
--- NOTE | 2024-11-11 07:49 | CT_ITS ---
[address] [address] Patient Name: HAKEEM STARK MRN: [id number] date: 1955 Sex: M Assigned Patient Location: CT Current Patient Location: CT Accession/Order Number: [id number] Exam Date: 11/11/2024 07:40 Report Date: 11/11/2024 16:39 At the request of: NERIS ZAVALA Procedure: CT chest wo con EXAMINATION: CT chest wo con HISTORY: Multiple Pulmonary Nodules R91.8 ; three-month follow-up COMPARISON: CT chest 08/12/2024 TECHNIQUE: Axial, Coronal, and Sagittal images were created without the administration of IV contrast material. Dose reduction techniques were achieved by using automated exposure control and/or adjustment of mA and/or kV according to patient size and/or use of iterative reconstruction technique. FINDINGS: LUNGS: Stable 1.4 x 0.9 x 0.4 cm soft tissue density adjacent the right minor fissure; nodule versus pleural thickening. Interval clearing of the 7.7 mm nodule/infiltrate within left upper lobe seen on prior study. PLEURA: No mass, effusion, or pneumothorax. VASCULATURE: No abnormality. AMADOR: No mass or pathologic adenopathy. MEDIASTINUM: No mass or pathologic adenopathy. CARDIAC: No enlargement, pericardial thickening, or pericardial effusion. Coronary Artery calcifications: Coronary calcifications are moderate. AORTA: No aneurysm or dissection. CHEST WALL: No mass or axillary adenopathy BONES: No bone lesion or fracture. LIMITED ABDOMEN: No suspicious findings. Limited images of the upper abdomen. OTHER: Negative. CT/CT chest wo con IMPRESSION: 1. Interval clearing of the new 7.7 mm opacity seen on the prior study; most likely intermittent infiltrates. 2. Stable pleural thickening versus nodule adjacent the right minor fissure. 3. Annual lung cancer screening is recommended. Electronically authenticated by: ARISTEO SHORT Date: 11/11/2024 16:39
== END 2024-11-11 07:27 | disposition home or self-care (01) ==
LOC: CT 07:28
PROVIDERS: PCP Nurse Practitioner; Visit Provider Internal Medicine
DX: R91.8 Other nonspecific abnormal finding of lung field (principal)
CPT/HCPCS: 71250

== ENCOUNTER 2024-12-07 06:41 | Outpatient (OUT) | payer BC, SELFPAY ==
--- OUTSIDE RECORDS SUMMARY | 2024-12-07 06:45 | XMS_ITS | CCD ---
Author Organization [facility] Care Team Providers Care Quill Cleaner Name Role Phone MILDRED CORRAL Primary Care Physician AICHHOLZ, [employer]P MARKETING MILDRED Admitting Unavailable AICHHOLZ, [employer] MILDRED Attending Unavailable AICHHOLZ, [employer] MILDRED Primary Care Unavailable AICHHOLZ, [employer] MILDRED Consulting Unavailable AICHHOLZ, [employer] MILDRED Admitting Unavailable AICHHOLZ, [employer] MILDRED Attending Unavailable AICHHOLZ, [employer] MILDRED Primary Care Unavailable AICHHOLZ, [employer] MILDRED Consulting Unavailable PATRICK VAZQUEZ Consulting Unavailable AICHHOLZ, [employer] MARK[employer] MILDRED Admitting Unavailable AICHHOLZ, [employer] MILDRED Attending Unavailable AICHHOLZ, [employer] MARK[employer] MILDRED Primary Care Unavailable SU ., DR BALDERRAMA Admitting Unavailable SU ., DR BALDERRAMA Attending Unavailable AICHHOLZ, [employer]P MARK[employer] MILDRED Primary Care Unavailable SU ., DR BALDERRAMA Consulting Unavailable SAAB, MARSHA Consulting Unavailable SU ., DR BALDERRAMA Admitting Unavailable SU ., DR BALDERRAMA Attending Unavailable AICHHOLZ, [employer] MARKET[employer] MILDRED Primary Care Unavailable SU ., DR BALDERRAMA Consulting Unavailable SURPRISE, DR YAIMA Hughes Consulting Unavailable LAURA NEGRON Consulting Unavailable TAMLYN ., SARTHAK Admitting Unavailable TAMLYN ., SARTHAK Attending Unavailable AICHHOLZ, [employer] MARK[employer] MILDRED Primary Care Unavailable TAMLYN ., SARTHAK Consulting Unavailable OFELIA BOONE Consulting Unavailable CARIDAD MILLER Consulting Unavailable Mildred Corral Primary Care Provider [phone] Mildred Corral Attending Provider [phone] Pavan Dailey MD Primary Care Provider Mildred Corral Primary Care Provider DANIEL Carpio Attending Provider Moni Carpio Admitting Unavailable Moni Carpio Attending Unavailable Mildred Corral Primary Care Unavailable Mildred Corral Attending Unavailable Mildred Corral Primary Care Unavailable Mildred Corral Admitting Unavailable PRASHANT CORTES Attending Unavailable Moni Carpio X Attending Unavailable MILDRED CORRAL Attending Unavailable MILDRED CORRAL Attending Unavailable MILDRED CORRAL Attending Unavailable Medications Current Medications Medication Drug Class(es) Dates Sig (Normalized) Sig (Original) aspirin 81 mg delayed release oral tablet (8 sources) Platelet Aggregation Inhibitor, Nonsteroidal Anti-inflammatory Drug Start: 12-02-2024 End: 03-02-2025 take 1 tablet by mouth once daily aspirin 81 MG EC tablet Indications: Type 2 diabetes mellitus without complications (CMS/HCC) , Primary hypertension (CMS/HCC) Take 1 tablet (81 mg) by mouth Daily 90 tablet 1 12/02/2024 12/02/2024 Discontinued (Reorder) Start: 01-17-2022 take 1 tablet by khai th once daily Aspirin 81 mg Tab-EC 81 mg, Oral, Daily, Refills(s) 0, Blood Thinner Start Date: 01/17/22 Status: Ordered Aspirin 81 mg Tab-EC (1 source) Start: 01-17-2022 take 1 tablet by mouth once daily Aspirin 81 mg Tab-EC 81 mg, Oral, Daily, Refills(s) 0, Blood Thinner Start Date: 01/17/22 Status: Ordered atorvastatin 80 mg oral tablet (18 sources) HMG-CoA Reductase Inhibitor Start: 01-17-2022 End: 03-02-2025 take 1 tablet by mouth at bedtime atorvastatin (Lipitor) 80 MG tablet Indications: Type 2 diabetes mellitus without complication, without long-term current use of insulin (CMS/HCC) Take 1 tablet (80 mg) by mouth at bedtime 90 tablet 1 12/02/2024 03/02/2025 Active Blood Glucose Monitoring Suppl (Accu-Chek Estela Plus) w/Device kit (12 sources) Blood Glucose Monitoring Suppl (Accu-Chek Estela Plus) w/Device kit Active lisinopril 10 mg oral tablet (18 sources) Angiotensin Converting Enzyme Inhibitor Start: 01-17-2022 End: 03-02-2025 take 1 tablet by mouth once daily lisinopril 10 MG tablet Indications: Primary hypertension (CMS/HCC) Take 1 tablet (10 mg) by mouth Daily 90 tablet 1 12/02/2024 03/02/2025 Active loperamide hydrochloride 2 mg oral tablet (12 sources) Opioid Agonist take 1 tablet by [...] hydrochloride 750 mg extended release oral tablet (17 sources) Biguanide Start: 05-09-2024 End: 03-02-2025 take 1 tablet by mouth every twenty-four [...] evening. Take before meals. 180 tablet 1 12/02/2024 03/02/2025 Active Start: 01-17-2022 take 1 tablet by khai th twice daily metformin 750 mg ER Tab 750 mg, Oral, BID, Refills(s) 0, High blood sugar Start Date: 01/17/22 Status: Ordered Multiple Vitamins-Minerals (Centrum Silver 50+Men) tablet (4 sources) take 1 tablet by mouth once daily Multiple Vitamins-Minerals (Centrum Silver 50+Men) tablet Take 1 tablet by mouth Daily Active tamsulosin hydrochloride 0.4 mg oral capsule (17 sources) alpha-Adrenergi c Antonia Start: 025 End: 025 take 1 capsule by mouth every twenty-four hours in the evening tamsulosin (Flomax) 0.4 MG 24 hr capsule Indications: Benign prostatic hyperplasia, unspecified whether lower urinary tract symptoms present Take 1 capsule (0.4 mg) by mouth in the evening 90 capsule 1 12/02/2024 12/02/2024 Discontinued (Reorder) Start: 02-12-2023 End: 12-02-2024 take 1 capsule by mouth once daily tamsulosin (Flomax) 0.4 MG 24 hr capsule Take 0.4 mg by mouth Daily 05/09/2024 12/02/2024 Discontinued (Reorder) Start: 01-17-2022 take 1 capsule by mo uth once daily tamsulosin 0.4 mg Cap 0.4 mg = 1 cap(s), Oral, Daily, # 30 cap(s), Refills(s) 8, Pharmacy: [facility] 1622, 180, cm, 01/17/22 9:28:00 EDT, Height/Length Dosing, 112, kg, 01/17/22 9:28:00 EDT, Weight Dosing Start Date: 01/17/22 Status: Ordered Problems Active Problems Problem Classification Problem Date Documented Da te Episodic/Chronic Chronic obstructive pulmonary disease and bronchiectasis (20 sources) Centriacinar emphysema; 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: [Centrilobular emphysema] Onset: 06-03-2024 Resolved: 12-02-2024 06-03-2024 Chronic Coronary atherosclerosis and other heart disease (16 sources) Coronary arteriosclerosis; 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: [Atherosclerotic heart disease of [place] coronary artery without angina pectoris] Onset: 12-04-2023 12-04-2023 Chronic Diabetes mellitus without complication (20 sources) Type 2 diabetes mellitus; 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: [Type 2 diabetes mellitus without complications] Onset: 11-05-2022 01-17-2022 Chronic Disorders of lipid metabolism (19 sources) Mixed hyperlipidemia; 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: [Mixed hyperlipidemia] Onset: 03-22-2022 01-17-2022 Chronic Essential hypertension (20 sources) Essential hypertension; 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: [Essential (primary) hypertension] Onset: 03-01-2022 Resolved: 06-03-2024 01-17-2022 Chronic Hyperplasia of prostate (20 sources) Weak urinary stream due to benign prostatic hypertrophy; 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: [Benign prostatic hyperplasia with lower urinary tract symptoms] Onset: 12-04-2023 Resolved: 12-02-2024 12-04-2023 Chronic Osteoarthritis (18 sources) Arthritis; 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: [Osteoarthritis of bilateral hip joints] Onset: 12-04-2023 02-24-2022 Chronic Other aftercare (1 source) assisted (current) use of oral hypoglycemic drugs; 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: [USP USE ORAL HYPOGLYCEMIC DX] Onset: 12-06-2022 Episodic Other and unspecified benign neoplasm (1 source) Personal history of colonic polyps; 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: [PERSONAL HISTORY OF COLONIC POLYPS] Onset: 12-06-2022 Episodic Other lower respiratory disease (20 sources) Multiple nodules of lung; 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: [Other nonspecific abnormal finding of lung field] Onset: 12-25-2023 07-15-2024 Episodic Other nutritional; endocrine; and metabolic disorders (14 sources) Body mass index 30+ - obesity; 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: [Body mass index (BMI) 32.0-32.9, adult] Onset: 12-04-2023 12-04-2023 Chronic Other nutritional; endocrine; and metabolic disorders (6 sources) Obesity caused by energy imbalance; 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: [Class 1 obesity due to excess calories with serious comorbidity in adult] Onset: 12-02-2024 12-02-2024 Chronic Other screening for suspected conditions (not mental disorders or infectious disease) (20 sources) Encounter for screening for malignant neoplasm of colon; 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: [Encounter for screening for malignant neoplasm of prostate] Onset: 03-22-2022 Resolved: 12-02-2024 Episodic Residual codes; unclassified (7 sources) FH: premature coronary heart disease; 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: [Family history of ischemic heart disease and other diseases of the circulatory system] Onset: 12-02-2024 12-02-2024 Episodic Spondylosis; intervertebral disc disorders; other back problems (6 sources) Degeneration of lumbar intervertebral disc; 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: [Degenerative lumbar disc] Onset: 12-02-2024 02-24-2022 Chronic Substance-related disorders (20 sources) Smoker; 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: [Nicotine dependence, cigarettes, uncomplicated] Onset: 12-06-2022 01-17-2022 Chronic Comment on above: Added secondary to d ocumentation in Social History. Past or Other Problems Problem Classification Problem Date Documented Da te Episodic/Chronic Calculus of urinary tract (20 sources) Kidney stone; 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: [Calculus of kidney] Onset: 02-24-2022 02-24-2022 Episodic Other aftercare (1 source) assisted (current) use of anticoagulants; 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: [USP CURRNT USE ANTICOAGULANTS] Onset: 03-01-2022 Episodic Other and unspecified benign neoplasm (12 sources) History of adenomatous polyp of colon; 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: [History of adenomatous polyp of colon] Onset: 12-04-2023 12-04-2023 Episodic Other lower respiratory disease (1 source) Other nonspecific abnormal finding of lung field; 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: [Other nonspecific abnormal finding of lung field] Onset: 03-25-2024 Episodic Other non-epithelial cancer of skin (12 sources) Squamous cell carcinoma of hand; 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: [Squamous cell carcinoma of skin of left upper limb, including shoulder] Onset: 12-04-2023 12-04-2023 Episodic Pancreatic disorders (not diabetes) (12 sources) Pancreatitis; 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: [Acute pancreatitis without necrosis or infection, unspecified] Onset: 12-04-2023 12-04-2023 Episodic Residual codes; unclassified (1 source) Procedure and treatment not carried out for other reasons; 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: [PROC AND TX NOT CARRIED OUT OTH REASONS] Onset: 03-01-2022 Episodic Residual codes; unclassified (12 sources) Tobacco user; 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: [Tobacco use] Onset: 12-04-2023 Resolved: 12-02-2024 12-04-2023 Episodic Results Test Name Value Interpretation Reference Range Facility HbA1c (Bld) [Mass fraction]o n 12-02-2024 Interpretation and review of laboratory results Normal [facility] - Hematology and Cell countson 12-02-2024 HbA1c (Bld) [Mass fraction] 5.6 % [facility] Healthcare Provider Letteron 11-21-2024 Provider Letter Provider Letter November 21, 2024 HAKEEM STARK [address] [place] [address] : 1955 Dear Hakeem, We have been trying to reach you with no success. You have an appointment with Dr. Aravind uS on December 16, 2024 which will need to be rescheduled since he will be out of the office that day. Please contact the office at the number listed below to get this appointment rescheduled at your earliest convenience. Thank you for your prompt attention to this matter. Sincerely, [facility] [address] [place] [address] [place] [address] [facility] CT CHEST WO CONon 11-11-[address] [facility] [address] [place] [address] CT Scan Report Signed Patient: HAKEEM STARK MR#: [id number] : 1955 Acct:[id number] Age/Sex: 69 / M ADM Date: 11/11/24 Loc: CT Attending Dr: Neris Zavala D.O. Ordering Physician: Neris Zavala D.O. Date of Service: 11/11/24 Procedure(s): CT chest wo con Accession Number(s): [id number] cc: Mildred Corral NP [place] [address] Patient Name: HAKEEM STARK MRN: [id number] date: 1955 Sex: M Assigned Patient Location: CT Current Patient Location: CT Accession/Order Number: [id number] Exam Date: 11/11/2024 07:40 Report Date: 11/11/2024 16:39 At the request of: NERIS ZAVALA Procedure: CT chest wo con EXAMINATION: CT chest wo con HISTORY: Multiple Pulmonary Nodules R91.8 ; three-month follow-up COMPARISON: CT chest 08/12/2024 TECHNIQUE: Axial, Coronal, and Sagittal images were created without the administration of IV contrast material. Dose reduction techniques were achieved by using automated exposure control and/or adjustment of mA and/or kV according to patient size and/or use of iterative reconstruction technique. FINDINGS: LUNGS: Stable 1.4 x 0.9 x 0.4 cm soft tissue density adjacent the right minor fissure; nodule versus pleural thickening. Interval clearing of the 7.7 mm nodule/infiltrate within left upper lobe seen on prior study. PLEURA: No mass, effusion, or pneumothorax. VASCULATURE: No abnormality. AMADOR: No mass or pathologic adenopathy. MEDIASTINUM: No mass or pathologic adenopathy. CARDIAC: No enlargement, pericardial thickening, or pericardial effusion. Coronary Artery calcifications: Coronary calcifications are moderate. AORTA: No aneurysm or dissection. CHEST WALL: No mass or axillary adenopathy BONES: No bone lesion or fracture. LIMITED ABDOMEN: No suspicious findings. Limited images of the upper abdomen. OTHER: Negative. CT/CT chest wo con IMPRESSION: 1. Interval clearing of the new 7.7 mm opacity seen on the prior study; most likely intermittent infiltrates. 2. Stable pleural thickening versus nodule adjacent the right minor fissure. 3. Annual lung cancer screening is recommended. Electronically authenticated by: HECTOR PHAN Date: 11/11/2024 16:39 Dictated By: Hector Phan M.D. Signed By: 11/11/24 1640 DD/ 163 TD/TT: Stained [employer] Glazier: [facility] Radiology, Radiologist, MD - 11/11/2024 [place] [address] CT Scan Report Signed Patient: HAKEEM STARK MR#: [id number] : 1955 Acct:[id number] Age/Sex: 69 / M ADM Date: 11/11/24 Loc: CT Attending Dr: Neris Zavala D.O. Ordering Physician: Neris Zavala D.O. Date of Service: 11/11/24 Procedure(s): CT chest wo con Accession Number(s): [id number] cc: Mildred Corral NP The [place] [address] Patient Name: HAKEEM STARK MRN: [facility]:[id number] date: 1955 Sex: M Assigned Patient Location: CT Current Patient Location: CT Accession/Order Number: [id number] Exam Date: 11/11/2024 07:40 Report Date: 11/11/2024 16:39 At the request of: NERIS ZAVALA Procedure: CT chest wo con EXAMINATION: CT chest wo con HISTORY: Multiple Pulmonary Nodules R91.8 ; three-month follow-up COMPARISON: CT chest 08/12/2024 TECHNIQUE: Axial, Coronal, and Sagittal images were created without the administration of IV contrast material. Dose reduction techniques were achieved by using automated exposure control and/or adjustment of mA and/or kV according to patient size and/or use of iterative reconstruction technique. FINDINGS: LUNGS: Stable 1.4 x 0.9 x 0.4 cm soft tissue density adjacent the right minor fissure; nodule versus pleural thickening. Interval clearing of the 7.7 mm nodule/infiltrate within left upper lobe seen on prior study. PLEURA: No mass, effusion, or pneumothorax. VASCULATURE: No abnormality. AMADOR: No mass or pathologic adenopathy. MEDIASTINUM: No mass or pathologic adenopathy. CARDIAC: No enlargement, pericardial thickening, or pericardial effusion. Coronary Artery calcifications: Coronary calcifications are moderate. AORTA: No aneurysm or dissection. CHEST WALL: No mass or axillary adenopathy BONES: No bone lesion or fracture. LIMITED ABDOMEN: No suspicious findings. Limited images of the upper abdomen. OTHER: Negative. CT/CT chest wo con IMPRESSION: 1. Interval clearing of the new 7.7 mm opacity seen on the prior study; most likely intermittent infiltrates. 2. Stable pleural thickening versus nodule adjacent the right minor fissure. 3. Annual lung cancer screening is recommended. Electronically authenticated by: HECTOR PHAN Date: 11/11/2024 16:39 Dictated By: Hector Phan M.D. Signed By: 11/11/24 1641 DD/ 1639 TD/TT: Stained Glass Glazier: [facility] [employer] [facility] Study observation (narrative) [facility] CT CHEST WO CONOrdered By: Jerry hortaiologdinh Radiology on 11-11-2024 [facility] [employer] Work Phone: MR prostate wo conon 024 MR prostate wo con [facility] [place] [address] [place] [address] MRI Report Signed Patient: Hakeem Stark MR#: [id number] : 1955 Acct:[id number] Age/Sex: 69 / M ADM Date: 07/29/24 Loc: MR Room: Type: [facility] Attending Dr: Moni SANCHEZ Copies to: [...] Wadsworth Jr., D.ODeshaun07/31/2024 12:48 PM Dictation Location: RADIO-PC-15 Transcribed By: [facility] 07/31/24 1248 Dictated By: Galen Wadsworth Jr, DO 07/31/24 1231 Signed By: 07/31/24 1248 Normal [facility] ISTAT XRay CREon 07-29-2024 ISTAT GFR > 60.0 Normal [facility] Comment on above: Result Comment: PERF ORMED BY: [place] [address] PATHOLOGIST CERTIFIED PEDORTHOTIST ONEYDA GUEVARA M.D. Performed By: #### I SCRE #### [facility] [address] [place] [address] No Panel InformationOrdered By: Moni Carpio on 07-29-2024 Bedside Estimated GFR (eGFR) > 60.[address] [facility] Whole blood creatinine measu rementOrdered By: Moni Carpio on 07-29-2024 Creatinine [Mass/Vol] 1.0 mg/dL Normal 0.6-1.3 [facility] Comment on above: ER/ESD physician is notified/shown all ISTAT results.Critical values may be confirmed by laboratory testing ifdeemed necessary by ER attending doctor. Result Comment: ER/E SD physician is notified/shown all ISTAT results. Critical values may be confirmed by laboratory testing if deemed necessary by ER attending doctor. Performed By: #### I SCRE #### [facility] [address] [place] [address] Ambulatory Visit Summaryon 0 06-25-2024 Ambulatory Visit [...] tract infectio (more content not included)... Normal [facility] Capillary blood glucose alex urement by glucometer (mass/volume)Ordered By: Mildred Corral on 03-25-2024 Glucose [Mass/Vol] 130 mg/dL Normal [facility] Comment on above: Random Glucose Refer ence Range is dependent on time and content of last meal. Glucose of more than 200 mg/dL in a nonstressed, ambulatory subject supports the diagnosis of Diabetes Mellitus. Result Comment: [place] om Glucose Reference Range is dependent on time and content of last meal. Glucose of more than 200 mg/dL in a nonstressed, ambulatory subject supports the diagnosis of Diabetes Mellitus. PERFORMED BY: [place] [address] PATHOLOGIST CERTIFIED PEDORTHOTIST ONEYDA GUEVARA M.D. Performed By: #### G LULS #### Point of Care testing , PET tumor init tx strat sb-m ton 03-25-2024 PET tumor init tx strat sb-mt [facility] [place] [address] [place] [address] Nuclear Medicine Report Signed Patient: Hakeem Stark MR#: [id number] : 1955 Acct:[id number] Age/Sex: 68 / M ADM Date: 03/25/24 Loc: Room: Type: [facility] Attending Dr: Mildred Corral Copies [...] Wadsworth Jr., D.ODeshaun03/25/2024 11:58 AM Dictation Location: [place] [address] Transcribed By: [facility] 03/25/24 1158 Dictated By: Galen Wadsworth Jr, DO 03/25/24 1150 Signed By: 03/25/24 1158 Normal [facility] Glucose Poct Glucometerson 0 03-18-2024 Glucose [Mass/Vol] 115 mg/dL Normal [facility] Comment on above: Result Comment: [facility] Glucose Reference Range is dependent on time and content of last meal. Glucose of more than 200 mg/dL in a nonstressed, ambulatory subject supports the diagnosis of Diabetes Mellitus. PERFORMED BY: [facility] [address] [place] [place] [address] PATHOLOGIST CERTIFIED PEDORTHOTIST ONEYDA GUEVARA M.D. Performed By: #### G [...] Please consider referral for smoking cessation to [facility] Medication Therapy Management (MTM) if clinically appropriate. [...] two extremes (Agatston score 101-1000). https://pubs.rsna.o rg/doi/abs/10.1148/ radiol.[email or web address] Electronically authenticated by: PATRICK VAZQUEZ Date: 2022-11-05 20:06 Normal [facility] GLYCOHEMOGLOBIN A1Con 2022 ADA RECOMMENDATION SEE BELOW Normal [facility] Comment on above: Result Comment: ADA RECOMMENDED LIMIT 4.0 - 6.0 ADA THERAPEUTIC TARGET < 7.0 ACTION SUGGESTED > 7.0 Performed By: #### A 1C #### [facility] [address] [place] [address] [address] Gigi To Glucose [Mass/Vol] 117 mg/dL Normal [facility] Comment on above: Performed By: #### A 1C #### [facility] [address] [place] [address] [address] Gigi To HbA1c (Bld) [Mass fraction] 5.7 % Normal 4.5-6.2 [facility] Comment on above: Performed By: #### A 1C #### [facility] [address] [place] [address] [address] Gigi To PROF CHEM 8 (BAS METB)on Anion gap [Moles/Vol] 16.1 mmol/L Normal [facility] Comment on above: Performed By: #### B MP #### [facility] [address] [place] [address] Dr. Gigi To Calcium [Mass/Vol] 9.4 mg/dL Normal 8.5-10.1 [facility] Comment on above: Performed By: #### B MP #### [facility] [address] [place] [address] Dr. Gigi To Chloride [Moles/Vol] 105 mmol/L Normal 98-107 [facility] Comment on above: Performed By: #### B MP #### [facility] [address] [place] [address] Dr. Gigi To CO2 [Moles/Vol] 25.8 mmol/L Normal 21.0-32.0 [facility] Comment on above: Performed By: #### B MP #### [facility] [address] [place] [address] Dr. Gigi To Creatinine [Mass/Vol] 1.02 mg/dL Normal 0.70-1.30 [facility] Comment on above: Performed By: #### B MP #### [facility] [address] [place] [address] Dr. Gigi To EGFR-AF MOSOTHO >60 Normal >=60 [facility] Comment on above: Performed By: #### B MP #### [facility] [address] [place] [address] Dr. Gigi To EGFR-NON AF MOSOTHO >60 Normal >=60 [facility] Comment on above: Performed By: #### B MP #### [facility] [address] [place] [address] Dr. Gigi To Glucose [Mass/Vol] 109 mg/dL Critically high 74-106 [facility] Comment on above: Performed By: #### B MP #### [facility] [address] [place] [address] Dr. Gigi To Potassium [Moles/Vol] 4.9 mmol/L Normal 3.5-5.1 [facility] Comment on above: Performed By: #### B MP #### [facility] [address] [place] [address] Dr. Gigi To Sodium [Moles/Vol] 142 mmol/L Normal 136-145 [facility] Comment on above: Performed By: #### B MP #### [facility] [address] [place] [address] Dr. Gigi To Urea nitrogen [Mass/Vol] 25.0 mg/dL Critically high 7.0-18.0 [facility] Comment on above: Performed By: #### B MP #### [facility] [address] [place] [address] Dr. Gigi To Urea nitrogen/Creatinine [Mass ratio] 24.5 mg/mg Normal [facility] Comment on above: Performed By: #### B MP #### [facility] [address] [place] [address] Dr. Gigi To CBC AUTO DIFFon 03-19-2022 BASO # 0.1 103/ul Normal 0.0-0.1 [facility] Comment on above: Performed By: #### C BC #### [facility] [address] [place] [address] Dr. Gigi To Basophils/100 WBC (Bld) 0.5 % Normal 0.2-2.0 [facility] Comment on above: Performed By: #### C BC #### [facility] [address] [place] [address] Dr. Gigi To EO # 0.3 103/ul Normal 0.0-0.7 [facility] Comment on above: Performed By: #### C BC #### [facility] [address] [place] [address] Dr. Gigi To Eosinophils/100 WBC (Bld) 2.7 % Normal 0.9-7.0 [facility] Comment on above: Performed By: #### C BC #### [facility] [address] [place] [address] Dr. Gigi To Erythrocyte distribution width (RBC) [Ratio] 14.0 % Normal 11.0-15.0 [facility] Comment on above: Performed By: #### C BC #### [facility] [address] [place] [address] Dr. Gigi To Hematocrit (Bld) [Volume fraction] 43.7 % Normal 42.0-54.0 [facility] Comment on above: Performed By: #### C BC #### [facility] [address] [place] [address] Dr. Gigi To Hemoglobin (Bld) [Mass/Vol] 14.4 g/dL Normal 14.0-18.0 [facility] Comment on above: Performed By: #### C BC #### [facility] [address] [place] [address] Dr. Gigi To IG # 0.03 10e3/ul Normal 0.00-0.03 [facility] Comment on above: Performed By: #### C BC #### [facility] [address] [place] [address] Dr. Gigi To IG % 0.3 % Normal 0.0-0.5 [facility] Comment on above: Performed By: #### C BC #### [facility] [address] [place] [address] Dr. Gigi To LYMPH # 2.9 103/ul Normal 1.2-3.8 [facility] Comment on above: Performed By: #### C BC #### [facility] [address] [place] [address] Dr. Gigi To Lymphocytes/100 WBC (Bld) 29.4 % Normal 20.5-60.[address] [facility] Comment on above: Performed By: #### C BC #### [facility] [address] [place] [address] Dr. Gigi To MANUAL DIFF REQ NO Normal [facility] Comment on above: Performed By: #### C BC #### [facility] [address] [place] [address] Dr. Gigi To MCH (RBC) [Entitic mass] 32.2 pg Normal 25.9-34.0 [facility] Comment on above: Performed By: #### C BC #### [facility] [address] [place] [address] Dr. Gigi To MCHC (RBC) [Mass/Vol] 33.0 g/dL Normal 29.9-35.2 [facility] Comment on above: Performed By: #### C BC #### [facility] [address] [place] [address] Dr. Gigi To MCV (RBC) [Entitic vol] 97.8 fL Critically high 80.0-94.0 [facility] Comment on above: Performed By: #### C BC #### [facility] [address] [place] [address] Dr. Gigi To MONO # 0.8 103/ul Normal 0.3-0.8 [facility] Comment on above: Performed By: #### C BC #### [facility] [address] [place] [address] Dr. Gigi To Monocytes/100 WBC (Bld) 8.6 % Normal 1.7-12.0 [facility] Comment on above: Performed By: #### C BC #### [facility] [address] [place] [address] Dr. Gigi To NEUT # 5.7 103/ul Normal 1.4-6.5 [facility] Comment on above: Performed By: #### C BC #### [facility] [address] [place] [address] Dr. Gigi To Neutrophils/100 WBC (Bld) 58.5 % Normal 43.0-75.[address] [facility] Comment on above: Performed By: #### C BC #### [facility] [address] [place] [address] Dr. Gigi To Platelet mean volume (Bld) [Entitic vol] 8.7 fL Critically low 9.5-13.5 [facility] Comment on above: Performed By: #### C BC #### [facility] [address] [place] [address] Dr. Gigi To PLT 280 103/ul Normal 150-450 [facility] Comment on above: Performed By: #### C BC #### [facility] [address] [address] [address] Gigi To RBC 4.47 106/ul Critically low 4.70-6.10 [facility] Comment on above: Performed By: #### C BC #### [facility] [address] [address] [address] Gigi To WBC 9.8 103/ul Normal 4.0-11.0 [facility] Comment on above: Performed By: #### C BC #### [facility] [address] [address] [address] Gigi To GLYCOHEMOGLOBIN A1Con 2021 ADA RECOMMENDATION SEE BELOW Normal [facility] Comment on above: Result Comment: ADA RECOMMENDED LIMIT 4.0 - 6.0 ADA THERAPEUTIC TARGET < 7.0 ACTION SUGGESTED > 7.0 Performed By: #### A 1C #### [facility] [address] [place] [address] Dr. Gigi To Glucose [Mass/Vol] 126 mg/dL Normal [facility] Comment on above: Performed By: #### A 1C #### [facility] [address] [place] [address] Dr. Gigi To HbA1c (Bld) [Mass fraction] 6.0 % Normal 4.5-6.2 [facility] Comment on above: Performed By: #### A 1C #### [facility] [address] [place] [address] Dr. Gigi To LIPID PROFILEon 03-19-2022 CHOL-HDL RATIO NORM SEE BELOW Normal [facility] Comment on above: Result Comment: 3.3 - 4.4 LOW RISK 4.4 - 7.1 AVERAGE RISK 7.1 - 11.0 MODERATE RISK >11.0 HIGH RISK Performed By: #### L IPID, CMP #### [facility] [address] [place] [address] Dr. Gigi To Cholesterol [Mass/Vol] 105 mg/dL Normal <=200 [facility] Comment on above: Performed By: #### L IPID, CMP #### [facility] [address] [address] [address] Gigi To Cholesterol in HDL [Mass/Vol] 29 mg/dL Critically low 40-60 [facility] Comment on above: Performed By: #### L IPID, CMP #### [facility] [address] [address] [address] Gigi To Cholesterol in LDL [Mass/Vol] 26.8 mg/dL Normal [facility] Comment on above: Performed By: #### L IPID, CMP #### [facility] [address] [address] [address] Gigi To Cholesterol.total/Chol esterol in HDL [Mass ratio] 3.6 {ratio} Normal [facility] Comment on above: Performed By: #### L IPID, CMP #### [facility] [address] [place] [address] Dr. Gigi To HDL NORMAL > or = 60 mg/dl - LOW CARDIOVASCULAR RISK <40 mg/dl - HIGH CARDIOVASCULAR RISK Normal [facility] Comment on above: Performed By: #### L IPID, CMP #### [facility] [address] [place] [address] Dr. Gigi To LDL CALC NORMAL SEE BELOW Normal [facility] Comment on above: Result Comment: <100 mg/dl OPTIMAL 100 - 129 mg/dl NEAR OR ABOVE OPTIMAL 130 - 159 mg/dl BORDERLINE HIGH 160 - 189 mg/dl HIGH >190 mg/dl VERY HIGH Performed By: #### L IPID, CMP #### [facility] [address] [place] [address] Dr. Gigi To Triglyceride [Mass/Vol] 246 mg/dL Critically high <=[address] [facility] Comment on above: Performed By: #### L IPID, CMP #### [facility] [address] [place] [address] Dr. Gigi To VLDL CALC 49.2 mg/dL Normal [facility] Comment on above: Performed By: #### L IPID, CMP #### [facility] [address] [address] [address] Gigi To MICROALBUMIN, RAND URon - mALB 1.5 mg/L Normal <=30.0 [facility] Comment on above: Performed By: #### M ALBR #### [facility] [address] [place] [address] Dr. Gigi To PROF 14(COMP METB)on 022 Albumin [Mass/Vol] 3.9 g/dL Normal 3.4-5.0 [facility] Comment on above: Performed By: #### L IPID, CMP #### [facility] [address] [place] [address] Dr. Gigi To Albumin/Globulin [Mass ratio] 1.1 {ratio} Normal [facility] Comment on above: Performed By: #### L IPID, CMP #### [facility] [address] [place] [address] Dr. Gigi To ALP [Catalytic activity/Vol] 42 U/L Critically low 46-116 [facility] Comment on above: Performed By: #### L IPID, CMP #### [facility] [address] [place] [address] Dr. Gigi To ALT [Catalytic activity/Vol] 30 U/L Normal 16-63 [facility] Comment on above: Performed By: #### L IPID, CMP #### [facility] [address] [place] [address] Dr. Gigi To Anion gap [Moles/Vol] 14.5 mmol/L Normal [facility] Comment on above: Performed By: #### L IPID, CMP #### [facility] [address] [place] [address] Dr. Gigi To AST [Catalytic activity/Vol] 17 U/L Normal 15-37 [facility] Comment on above: Performed By: #### L IPID, CMP #### [facility] [address] [place] [address] Dr. Gigi To Bilirubin [Mass/Vol] 0.4 mg/dL Normal 0.2-1.0 [facility] Comment on above: Performed By: #### L IPID, CMP #### [facility] [address] [address] [address] Gigi To Calcium [Mass/Vol] 9.4 mg/dL Normal 8.5-10.1 [facility] Comment on above: Performed By: #### L IPID, CMP #### [facility] [address] [address] [address] Gigi To Chloride [Moles/Vol] 105 mmol/L Normal 98-107 [facility] Comment on above: Performed By: #### L IPID, CMP #### [facility] [address] [place] [address] Dr. Gigi To CO2 [Moles/Vol] 27.7 mmol/L Normal 21.0-32.0 [facility] Comment on above: Performed By: #### L IPID, CMP #### [facility] [address] [place] [address] Dr. Gigi To Creatinine [Mass/Vol] 1.00 mg/dL Normal 0.70-1.30 [facility] Comment on above: Performed By: #### L IPID, CMP #### [facility] [address] [place] [address] Dr. Gigi To EGFR-AF MOSOTHO >60 Normal >=60 [facility] Comment on above: Performed By: #### L IPID, CMP #### [facility] [address] [place] [address] Dr. Gigi To EGFR-NON AF MOSOTHO >60 Normal >=60 [facility] Comment on above: Performed By: #### L IPID, CMP #### [facility] [address] [place] [address] Dr. Gigi To Globulin (S) [Mass/Vol] 3.5 g/dL Normal [facility] Comment on above: Performed By: #### L IPID, CMP #### [facility] [address] [place] [address] Dr. Gigi To Glucose [Mass/Vol] 108 mg/dL Critically high 74-106 [facility] Comment on above: Performed By: #### L IPID, CMP #### [facility] [address] [address] [address] Gigi To Potassium [Moles/Vol] 4.2 mmol/L Normal 3.5-5.1 [facility] Comment on above: Performed By: #### L IPID, CMP #### [facility] [address] [address] [address] Gigi To Protein [Mass/Vol] 7.4 g/dL Normal 6.4-8.2 [facility] Comment on above: Performed By: #### L IPID, CMP #### [facility] [address] [address] [address] Gigi To Sodium [Moles/Vol] 143 mmol/L Normal 136-145 [facility] Comment on above: Performed By: #### L IPID, CMP #### [facility] [address] [address] [address] Gigi To Urea nitrogen [Mass/Vol] 21.0 mg/dL Critically high 7.0-18.0 [facility] Comment on above: Performed By: #### L IPID, CMP #### [facility] [address] [address] [address] Gigi To Urea nitrogen/Creatinine [Mass ratio] 21.0 mg/mg Normal [facility] Comment on above: Performed By: #### L IPID, CMP #### [facility] [address] [address] [address] Gigi To CHEMISTRYOrdered By: Lab ROP User on 02-24-2022 Glucose [Mass/Vol] 119 mg/dL High 55 - 99 mg/dL [facility] POC Subsection Comment on above: Result Comment: Isha priti Meter POC Device SN [id number] Invalid Interpretation Code [facility] P[facility] Subsection POC User ID [id number] Invalid Interpretation Code [facility] Subsection POC Username IQRA DODSON Invalid Interpretation Code [facility] Subsection XR KUB 1 VIEWon 02-24-2022 [...] NOONAN Date: 2022-02-24 07:[address] [facility] CBC AUTO DIFFon 02-21-2022 BASO # 0.1 103/ul Normal 0.0-0.1 [facility] Comment on above: Performed By: #### A 1C #### [facility] [address] [address] [address] Gigi To Basophils/100 WBC (Bld) 0.6 % Normal 0.2-2.0 [facility] Comment on above: Performed By: #### A 1C #### [facility] [address] [place] [address] Dr. Gigi To EO # 0.2 103/ul Normal 0.0-0.7 [facility] Comment on above: Performed By: #### A 1C #### [facility] [address] [address] [address] Gigi To Eosinophils/100 WBC (Bld) 1.9 % Normal 0.9-7.0 [facility] Comment on above: Performed By: #### A 1C #### [facility] [address] [address] [address] Gigi To Erythrocyte distribution width (RBC) [Ratio] 14.3 % Normal 11.0-15.0 [facility] Comment on above: Performed By: #### A 1C #### [facility] [address] [place] [address] Dr. Gigi To Hematocrit (Bld) [Volume fraction] 40.4 % Critically low 42.0-54.0 [facility] Comment on above: Performed By: #### A 1C #### [facility] [address] [place] [address] Dr. Gigi To Hemoglobin (Bld) [Mass/Vol] 13.4 g/dL Critically low 14.0-18.0 [facility] Comment on above: Performed By: #### A 1C #### [facility] [address] [place] [address] Dr. Gigi To IG # 0.02 10e3/ul Normal 0.00-0.03 [facility] Comment on above: Performed By: #### A 1C #### [facility] [address] [place] [address] Dr. Gigi To IG % 0.3 % Normal 0.0-0.5 [facility] Comment on above: Performed By: #### A 1C #### [facility] [address] [place] [address] Dr. Gigi To LYMPH # 2.4 103/ul Normal 1.2-3.8 [facility] Comment on above: Performed By: #### A 1C #### [facility] [address] [place] [address] Dr. Gigi To Lymphocytes/100 WBC (Bld) 30.7 % Normal 20.5-60.0 [facility] Comment on above: Performed By: #### A 1C #### [facility] [address] [place] [address] Dr. Ggii To MANUAL DIFF REQ NO Normal [facility] Comment on above: Performed By: #### A 1C #### [facility] [address] [place] [address] Dr. Gigi To MCH (RBC) [Entitic mass] 31.8 pg Normal 25.9-34.0 [facility] Comment on above: Performed By: #### A 1C #### [facility] [address] [place] [address] Dr. Gigi To MCHC (RBC) [Mass/Vol] 33.2 g/dL Normal 29.9-35.2 [facility] Comment on above: Performed By: #### A 1C #### [facility] [address] [place] [address] Dr. Gigi To MCV (RBC) [Entitic vol] 95.7 fL Critically high 80.0-94.0 [facility] Comment on above: Performed By: #### A 1C #### [facility] [address] [address] [address] Gigi To MONO # 0.8 103/ul Normal 0.3-0.8 [facility] Comment on above: Performed By: #### A 1C #### [facility] [address] [address] [address] Gigi To Monocytes/100 WBC (Bld) 10.0 % Normal 1.7-12.0 [facility] Comment on above: Performed By: #### A 1C #### [facility] [address] [place] [address] Dr. Gigi To NEUT # 4.4 103/ul Normal 1.4-6.5 [facility] Comment on above: Performed By: #### A 1C #### [facility] [address] [place] [address] Dr. Gigi To Neutrophils/100 WBC (Bld) 56.5 % Normal 43.0-75.0 [facility] Comment on above: Performed By: #### A 1C #### [facility] [address] [place] [address] Dr. Gigi To Platelet mean volume (Bld) [Entitic vol] 9.1 fL Critically low 9.5-13.5 [facility] Comment on above: Performed By: #### A 1C #### [facility] [address] [place] [address] Dr. Gigi To PLT 256 103/ul Normal 150-[address] [facility] Comment on above: Performed By: #### A 1C #### [facility] [address] [place] [address] Dr. Gigi To RBC 4.22 106/ul Critically low 4.70-6.10 [facility] Comment on above: Performed By: #### A 1C #### [facility] [address] [place] [address] Dr. Gigi To WBC 7.8 103/ul Normal 4.0-11.0 [facility] Comment on above: Performed By: #### A 1C #### [facility] [address] [place], [place] [id number] Dr. Gigi To PROF CHEM 8 (BAS METB)on Anion gap [Moles/Vol] 13.6 mmol/L Normal [facility] Comment on above: Performed By: #### B MP #### [facility] [address] [place] [address] Dr. Gigi To Calcium [Mass/Vol] 9.2 mg/dL Normal 8.5-10.1 [facility] Comment on above: Performed By: #### B MP #### [facility] [address] [place] [address] Dr. Gigi To Chloride [Moles/Vol] 104 mmol/L Normal 98-107 [facility] Comment on above: Performed By: #### B MP #### [facility] [address] [place] [address] Dr. Gigi To CO2 [Moles/Vol] 26.9 mmol/L Normal 21.0-32.0 [facility] Comment on above: Performed By: #### B MP #### [facility] [address] [place] [address] Dr. Gigi To Creatinine [Mass/Vol] 0.95 mg/dL Normal 0.70-1.30 [facility] Comment on above: Performed By: #### B MP #### [facility] [address] [place] [address] Dr. Gigi To EGFR-AF MOSOTHO >60 Normal >=60 [facility] Comment on above: Performed By: #### B MP #### [facility] [address] [place] [address] Dr. Gigi To EGFR-NON AF MOSOTHO >60 Normal >=60 [facility] Comment on above: Performed By: #### B MP #### [facility] [address] [place] [address] Dr. Gigi To Glucose [Mass/Vol] 121 mg/dL Critically high 74-106 T [facility] Comment on above: Performed By: #### B MP #### [facility] [address] [place] [address] Dr. Gigi To Potassium [Moles/Vol] 4.5 mmol/L Normal 3.5-5.1 [facility] Comment on above: Performed By: #### B MP #### [facility] [address] [place] [address] Dr. Gigi To Sodium [Moles/Vol] 140 mmol/L Normal 136-145 [facility] Comment on above: Performed By: #### B MP #### [facility] [address] [address] [address] Gigi To Urea nitrogen [Mass/Vol] 15.0 mg/dL Normal 7.0-18.0 [facility] Comment on above: Performed By: #### B MP #### [facility] [address] [place] [address] Dr. Gigi To Urea nitrogen/Creatinine [Mass ratio] 15.8 mg/mg Normal [facility] Comment on above: Performed By: #### B MP #### [facility] [address] [place] [address] Dr. Gigi To PROTIMEon 02-21-2022 INR Coag (PPP) [Relative time] 0.99 {INR} Normal [facility] Comment on above: Performed By: #### A 1C #### [facility] [address] [place] [address] Dr. Gigi To INR GUIDELINES SEE BELOW Normal [facility] Comment on above: Result Comment: ASHLEY RED INR: 2.0 - 3.0 CONDITIONS NOT LISTED BELOW 2.5 - 3.5 FOR PROSTHETIC HEART VALVE REPLACEMENT 2.5 - 3.5 RECURRENT THROMBOSIS Performed By: #### A 1C #### [facility] [address] [place] [address] Dr. Gigi To PT Coag (PPP) [Time] 10.7 s Normal 9.0-11.6 [facility] Comment on above: Performed By: #### A 1C #### [facility] [address] [place] [address] Dr. Gigi To PTTon 02-21-2022 aPTT Coag (Bld) [Time] 26.2 s Normal 22.3-36.2 [facility] Comment on above: Performed By: #### A 1C #### [facility] [address] [address] [address] Gigi To Vital Signs Date Time Vital Sign Value Performing Clinician Facility 12-02-2024 08:43-0500 Body mass index (BMI) [Ratio] 31.77 kg/m2 Mildred Shayna CUSTOMER RESPONSE REPRESENTATIVE Work Phone: [facility] 12-02-2024 08:43-0500 Body temperature 98.49 [degF] Mildred Aichholz CUSTOMER RESPONSE REPRESENTATIVE Work Phone: [facility] 12-02-2024 08:43-0500 Body weight 103.33 kg Mildred Gersonhdodiez CUSTOMER RESPONSE REPRESENTATIVE Work Phone: [facility] 12-02-2024 08:43-0500 Diastolic blood pressure 78 mm[Hg] Mildred Aichholz CUSTOMER RESPONSE REPRESENTATIVE Work Phone: [facility] 12-02-2024 08:43-0500 Heart rate 101 /min Mildred Aichholz CUSTOMER RESPONSE REPRESENTATIVE Work Phone: [facility] 12-02-2024 08:43-0500 Respiratory rate 20 /min Mildred Aichholz CUSTOMER RESPONSE REPRESENTATIVE Work Phone: [facility] 12-02-2024 08:43-0500 SaO2% (BldA) [Mass fraction] 95 % Mildred Gersonhholz CUSTOMER RESPONSE REPRESENTATIVE Work Phone: [facility] 12-02-2024 08:43-0500 Systolic blood pressure 128 mm[Hg] Mildred Gersonhholz CUSTOMER RESPONSE REPRESENTATIVE Work Phone: [facility] 06-03-2024 08:37-0400 Body mass index (BMI) [Ratio] 32.64 kg/m2 Mildred Aichholz CUSTOMER RESPONSE REPRESENTATIVE Work Phone: [facility] 06-03-2024 08:37-0400 Body temperature 97.9 [degF] Mildred Aichholz CUSTOMER RESPONSE REPRESENTATIVE Work Phone: [facility] 06-03-2024 08:37-0400 Body weight 106.14 kg Mildred Aichholz CUSTOMER RESPONSE REPRESENTATIVE Work Phone: [facility] 06-03-2024 08:37-0400 Diastolic blood pressure 80 mm[Hg] Mildred Lolaholz CUSTOMER RESPONSE REPRESENTATIVE Work Phone: [facility] 06-03-2024 08:37-0400 Heart rate 89 /min Mildred Gersonhholz CUSTOMER RESPONSE REPRESENTATIVE Work Phone: [facility] 06-03-2024 08:37-0400 SaO2% (BldA) [Mass fraction] 95 % Mildred Lolaholz CUSTOMER RESPONSE REPRESENTATIVE Work Phone: [facility] 06-03-2024 08:37-0400 Systolic blood pressure 140 mm[Hg] Mildred Lolaholz CUSTOMER RESPONSE REPRESENTATIVE Work Phone: [facility] 03-25-2024 07:46-0400 Body height 180.34 cm Mildred Lolaholz Work Phone: [facility] 03-25-2024 07:46-0400 Body weight 104.32 kg Mildred Paynez Work Phone: [facility] 02-24-2022 17:16-0400 Blood Pressure Location Aravindpasha SU [facility] 02-24-2022 17:16-0400 BP/Pulse Patient Position Aravindpasha [facility] 02-24-2022 17:16-0400 Diastolic blood pressure 80 mm[Hg] Aravindpasha [facility] 02-24-2022 17:16-0400 Heart rate 85 /min Aravindpasha [facility] 02-24-2022 17:16-0400 Mean blood pressure 103 mm[Hg] Aravind [facility] 02-24-2022 17:16-0400 Respiratory rate 18 /min Aravind SU [address]19-2022 17:16-0400 SaO2% (BldA) [Mass fraction] 97 % Aravindpasha [facility] 02-24-2022 17:16-0400 Systolic blood pressure 150 mm[Hg] Aravindpasha [facility] 02-24-2022 16:20-0400 Blood Pressure Location Aravindpasha [facility] 02-24-2022 16:20-0400 Diastolic blood pressure 90 mm[Hg] Aravindpasha [facility] 02-24-2022 16:20-0400 Heart rate 84 /min Aravindpasha [facility] 02-24-2022 16:20-0400 Respiratory rate 18 /min Aravindpasha [facility] 02-24-2022 16:20-0400 SaO2% (BldA) [Mass fraction] 96 % Aravindpasha [facility] 02-24-2022 16:20-0400 Systolic blood pressure 150 mm[Hg] Aravindpasha [facility] 02-24-2022 16:13-0400 Body temperature 97.34 [degF] Aravindpasha [facility] 02-24-2022 16:13-0400 Diastolic blood pressure 95 mm[Hg] Aravindpasha [facility] 02-24-2022 16:13-0400 Heart rate 94 /min Aravindpasha [facility] 02-24-2022 16:13-0400 Respiratory rate 15 /min Aravindpasha [facility] 02-24-2022 16:13-0400 SaO2% (BldA) [Mass fraction] 95 % Aravind [facility] 02-24-2022 16:13-0400 Systolic blood pressure 154 mm[Hg] Aravind [facility] 02-24-2022 16:00-0400 Respiratory rate 24 /min Aravind [facility] 02-24-2022 15:55-0400 Respiratory rate 18 /min Aravind [facility] 02-24-2022 15:48-0400 Body temperature 97.16 [degF] Aravind [facility] 02-24-2022 15:45-0400 Respiratory rate 1 /min Aravind [facility] 02-24-2022 10:49-0400 Blood Pressure Location Aravindpasha [facility] 02-24-2022 10:49-0400 Mean blood pressure 100 mm[Hg] Aravind [facility] 02-24-2022 10:47-0400 Body temperature 98.06 [degF] Aravind [facility] 02-24-2022 10:47-0400 Mean blood pressure 115 mm[Hg] Aravind [facility] 02-24-2022 10:47-0400 Heart rate 96 /min Aravindpasha SU [facility] Encounters Encounter Date Encounter Type Care Provider Facility Start: 12-16-2024 ambulatory PRASHANT Edouard ty:UVALDO Dweitt Start: 12-02-2024 End: 12-02-2024 Bamboo flowsheet Mildred Corral CUSTOMER RESPONSE REPRESENTATIVE Work Phone: [facility] Start: 12-02-2024 End: 12-02-2024 Bamboo flowsheet Mildred Corral NP Work Phone: [facility] Start: 12-02-2024 End: 12-02-2024 Office outpatient visit 25 minutes Mildred Corral NP Work Phone: [facility] Comment on above: Type 2 diabetes rah itus without complication, without long- term current use of insulin (CMS/HCC) (Primary Dx); Type 2 diabetes mellitus without complications (CMS/HCC); Centrilobular emphysema (CMS/HCC); Multiple pulmonary nodules; 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 (CMS/HCC); Primary hypertension (CMS/HCC); Elevated PSA; Benign prostatic hyperplasia, unspecified whether lower urinary tract symptoms present; Cigarette nicotine dependence without complication; Hyperlipidemia, mixed (CMS/HCC); Class 1 obesity due to excess calories with serious comorbidity in adult, unspecified BMI; Controlled type 2 diabetes mellitus without complication, without long-term current use of insulin (CMS/HCC); Family history of early CAD Start: 12-02-2024 End: 12-02-2024 Refill Mildred Corral NP Work Phone: [facility] Comment on above: Type 2 diabetes rah itus without complications (CMS/HCC); Primary hypertension (CMS/HCC); Type 2 diabetes mellitus without complication, without long-term current use of insulin (CMS/HCC); Controlled type 2 diabetes mellitus without complication, without long-term current use of insulin (CMS/HCC); Benign prostatic hyperplasia, unspecified whether lower urinary tract symptoms present Start: 11-28-2024 End: 11-28-2024 Refill Pavan Dailey MD Work Phone: [facility] Comment on above: Primary hypertension (CMS/HCC) Start: 11-11-2024 End: 11-11-2024 Clinisync Result Encounter Generic External Data Provider [facility] Unsolicited Start: 11-11-2024 End: 11-11-2024 Clinisync Result Encounter Generic External Data Provider [facility] External [facility] Unsolicited Start: 08-19-2024 End: 08-19-2024 Orders Only Mildred Aichholz CUSTOMER RESPONSE REPRESENTATIVE Work Phone: [facility] Comment on above: Lung nodule, multipl e (Primary Dx) Start: 08-08-2024 End: 08-08-2024 Refill Mildred Corral CUSTOMER RESPONSE REPRESENTATIVE Work Phone: [facility] Comment on above: Type 2 diabetes rah itus without complication, without long- term current use of insulin (CMS/HCC) Start: 07-29-2024 End: 07-29-2024 Patient encounter procedure Mildred Corral Work Phone: [facility] [place] Work Phone: Start: 07-29-2024 End: 07-29-2024 ambulatory Mildred Corral Work Phone: [facility] Work Phone: Start: 07-15-2024 End: 07-15-2024 Orders Only Mildred Corral CUSTOMER RESPONSE REPRESENTATIVE Work Phone: [facility] Comment on above: Lung nodule, multipl e (Primary Dx) Start: 06-25-2024 End: 06-25-2024 ambulatory Moni X Orzech Facility:[facility] Start: 06-25-2024 End: 06-25-2024 Patient encounter procedure Moni X Orzech [facility] Start: 06-03-2024 End: 06-03-2024 Bamboo flowsheet Mildred Corral CUSTOMER RESPONSE REPRESENTATIVE Work Phone: [facility] Start: 06-03-2024 End: 06-03-2024 Bamboo flowsheet Mildred Corral CUSTOMER RESPONSE REPRESENTATIVE Work Phone: [facility] Start: 06-03-2024 End: 06-03-2024 Office outpatient visit 25 minutes Mildred Corral CUSTOMER RESPONSE REPRESENTATIVE Work Phone: [facility] Comment on above: Primary hypertension (CMS/HCC) (Primary Dx); Centrilobular emphysema (CMS/HCC); BMI 32.0-32.9,adult; Type 2 diabetes mellitus without complication, without long-term current use of insulin (CMS/HCC); Cigarette nicotine dependence without complication; Rising PSA level Start: 06-03-2024 End: 06-03-2024 ambulatory MILDRED AICHHOLZ Not Available Start: 03-25-2024 End: 03-25-2024 Patient encounter procedure Mildredjudd Davilaholz Work Phone: [facility] Work Phone: Start: 03-25-2024 End: 03-25-2024 ambulatory Mildred J Aicelyseholz Work Phone: [facility] Work Phone: Start: 12-04-2023 End: 12-04-2023 ambulatory MILDRED AICHHOLZ Not Available Start: 12-26-2022 ambulatory PATTI MILDRED LOLAHOLZ Facil ity:[facility] Start: 12-02-2022 End: 12-02-2022 ambulatory SARTHAK STEPHENS . Facility:[facility] Start: 11-05-2022 End: 11-06-2022 ambulatory PATTI AGUSTINA LOLAHOLZ Facility:[facility] Start: 03-19-2022 End: 03-20-2022 ambulatory [employer] MILDRED AICHHOLZ Facility:[facility] Start: 02-25-2022 Encounter for other preprocedural examination DR ARAVIND SU . [facility] Start: 02-25-2022 Encounter for preprocedural cardiovascular examination DR ARAVIND SU . [facility] Start: 02-25-2022 Encounter for preprocedural laboratory examination DR ARAVIND SU . [facility] Start: 02-24-2022 End: 02-24-2022 Admission to same day surgery center Aravind SU [facility] Start: 02-24-2022 End: 02-24-[address] ARAVIND SU . Facility:[facility] Start: 02-21-2022 End: 02-22-[address] ARAVIND SU . Facility:[facility] Start: 02-21-2022 End: 02-22-2022 Encounter for preprocedural laboratory examination DR ARAVIND SU . Facility:[facility] Procedures Date Procedure Procedure Detail Performing Clinician Start: 12-02-2024 Hemoglobin glycosylated a1c Mildred Corral NP Work Phone: Start: 11-11-2024 CT CHEST WO CON Generic External Data Provider Start: 03-25-2024 Positron emission tomography with computed tomography Mildred Corral Work Phone: Start: 12-02-2022 Colonoscopy Mildred mejia NP Work Phone: Start: 03-19-2022 PSA screening [employer] MILDRED CORRAL Comment on above: Performed By: #### P SAD #### [facility] [address] [place] [address] Dr. Gigi To Start: 02-24-2022 Extracorporeal shock wave lithotripsy of calculus of kidney Aravind SU Colonoscopy Aravind SU Plan of Treatment Date Care Activity Detail Author Start: 12-02-2027 Screening for malign ant neoplasm of colon [facility] Start: 06-03-2026 Glaucoma screening Diabetes: R etinopathy Screening [facility] Start: 06-01-2025 Hemoglobin A1c measurement Diabetes: Hemoglobin A1C [facility] Start: 05-23-2025 Glaucoma screening Diabetes: R etinopathy Screening [facility] Start: 05-06-2025 Urine screening for protein Diabetes: Urine Protein Screening [facility] Start: 02-24-2025 End: 02-24-2025 Patient encounter procedure 02/24/2025 8:40 AM EDT Office Visit [facility] [address] [place] [id number] Mildred Corral NP [address] [place] [id number] [facility] Start: 12-02-2024 End: 12-02-2026 NM Heart Perfusion W single state of exercise Stress test with myocardial perfusion Cardiac Nuclear Medicine Routine 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 (CMS/HCC) Primary hypertension (CMS/HCC) Cigarette nicotine dependence without complication Hyperlipidemia, mixed (CMS/HCC) Family history of early CAD Expected: 12/02/2024 (Approximate), Expires: 12/02/2026 [facility] Work Phone: Comment on above: Expected: 12/02/2024 (Approximate), Expires: 12/02/2026 Start: 12-02-2024 End: 12-02-2024 Patient encounter procedure [facility] Comment on above: Multiple pulmonary n odules (Primary Dx); Type 2 diabetes mellitus without complications (CMS/HCC); Centrilobular emphysema (CMS/HCC); 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 (CMS/HCC); Primary hypertension (CMS/HCC); Elevated PSA; Benign prostatic hyperplasia, unspecified whether lower urinary tract symptoms present; Cigarette nicotine dependence without complication; Hyperlipidemia, mixed (CMS/HCC); Class 1 obesity due to excess calories with serious comorbidity in adult, unspecified BMI Start: 11-06-2024 Hemoglobin A1c measurement Diabetes: Hemoglobin A1C [facility] Start: 07-29-2024 MR prostate wo con MR prostate wo co n [facility] Start: 07-29-2024 MR Prostate WO contrast [facility] Start: 07-15-2024 End: 07-15-2025 CT Chest for screening WO contrast Lung screening follow up CT chest wo IV contrast Imaging Routine Lung nodule, multiple Expected: 07/15/2024 (Approximate), Expires: 07/15/2025 [facility] [employer] Work Phone: Comment on above: Expected: 07/15/2024 (Approximate), Expires: 07/15/2025 Start: 06-03-2024 End: 06-03-2024 Patient encounter procedure 06/03/2024 8:40 AM EDT Office Visit [facility] [address] [place] [address] Mildred Corral NP [address] [place] [address] Centrilobular emphysema (CMS/HCC) [facility] Comment on above: Centrilobular emphys susan (CMS/HCC) Start: 12-05-2023 Screening for malign ant neoplasm of colon [facility] Start: 1955 Screening for malign ant neoplasm of colon [facility] Immunizations Immunization Date Immunization Notes Care Provider Fa cility 03-20-2021 Pfizer Purple Cap SARS-CoV-2 Vaccination Mildred Corral NP Work Phone: [facility] 03-15-2021 SARS-CoV-2 (COVID-19 ) mRNA BNT-162b2 vax Aravind SU [facility] 02-27-2021 SARS-CoV-2 (COVID-19 ) mRNA BNT-162b2 vax Aravind SU [facility] Payers Date Payer Category [facility]ayer [facility] [id number] 2024 Unknown [id number] 2024 Self-pay 2024 Medicare [id number] 2021 Private Health Insurance [id number] 1959 Private Health Insurance [id number] 1953 Unknown [id number] [id number]. [id number] 1953 Unknown [id number] [id number]. 2.593 1953 Unknown [id number] [id number]. 2.593 1953 Unknown [id number] [id number]. 2.593 1953 Unknown [id number] [id number]. 2.593 1953 Unknown [id number] [id number]. 2.593 1953 Unknown [id number] 2.16.840.1.097519.3.579. 2.727 1953 Unknown [id number] [id number]. 2.727 1953 Unknown [id number] [id number]. 2.1259 1953 Unknown [id number] [id number]. 2.1259 1953 Unknown [id number] [id number]. 2.1259 Unknown [id number] [id number]. 2.531 Unknown [id number]. 2.531 Social History Date Type Detail Facility Tobacco Unknown if ever smoked [facility] Comment on above: 10/10 ppd cigarettes Start: 12-04-2023 End: 06-03-2024 Sex Assigned At Male [facility] Start: 1955 Sex Assigned At Male [facility] Start: 12-04-2023 End: 06-03-2024 Tobacco smoking status NHIS Smokes tobacco daily [facility] History of tobacco use Cigarette Smoker [facility] Start: 12-04-2023 End: 06-03-2024 Tobacco use and exposure Smokeless tobacco non-user [facility] Start: 06-03-2024 End: 12-02-2024 Alcoholic beverage intake Ex-drinker (finding) [facility] Start: 12-04-2023 End: 06-03-2024 History of Social function [facility] Start: 12-04-2023 Alcohol Comment coffee: 2-3 cups [facility] Start: 1955 Sex assigned at Not on file [facility] Tobacco smoking status No Smokin g Status Entered [facility] Functional Status Date Assessment Result Facility 06-25-2024 Functional Status N/A [facility] Clinical Notes 02-24-2022 to 12-02-2024 Mildred Corral NP - 12/02/2024 9:08 AM Nel Corral NP - 12/02/2024 8:40 AM Nel Corral NP - 12/02/2024 6:20 AM ESTMildred Corral NP - 12/02/2024 6:19 AM ESTPatient Instructions Note Date & Type Note Facility 12-02-2024 History of Present illness Narrative Associated Problem(s): BPH (benign prostatic hyperplasia) Continue with Urology Images from the original note were not included. \[ Hakeem Stark is a 69 y.o. male presents with chief complaint of No chief complaint on file. HPI: Hypertension This is a chronic problem. The current episode started more than 1 year ago. The problem is unchanged. The problem is controlled. Pertinent negatives include no blurred vision, chest pain, headaches, palpitations, peripheral edema or shortness of breath. There are no associated agents to hypertension. Risk factors for coronary artery disease include male gender, obesity, smoking/tobacco exposure, sedentary lifestyle, family history, dyslipidemia and diabetes mellitus. Past treatments include MANDY inhibitors. The current treatment provides significant improvement. There are no compliance problems. There is no history of CAD/VA, heart failure or PVD. Diabetes He presents for his follow-up diabetic visit. He has type 2 diabetes mellitus. His disease course has been stable. Pertinent negatives for hypoglycemia include no dizziness, headaches, nervousness/anxiousness, seizures, sleepiness or tremors. Pertinent negatives for diabetes include no blurred vision, no chest pain, no polydipsia, no polyphagia, no polyuria and no weight loss. There are no hypoglycemic complications. Symptoms are stable. There are no diabetic complications. Pertinent negatives for diabetic complications include no PVD. Risk factors for coronary artery disease include diabetes mellitus, dyslipidemia, hypertension, male sex, obesity, sedentary lifestyle, tobacco exposure and family history. Current diabetic treatment includes oral agent (monotherapy). He is compliant with treatment all of the time. An MANDY inhibitor/angiotensin II receptor antonia is being taken. He does not see a stone setter metal optical frames.Eye exam is current. SUBJECTIVE: MEDICATIONS: Current Outpatient Medications Medication Instructions aspirin 81 mg, Oral, Daily atorvastatin (LIPITOR) 80 mg, Oral, Nightly Blood Glucose Monitoring Suppl (Accu-Chek Estela Plus) w/Device kit No dose, route, or frequency recorded. lisinopril 10 mg, Oral, Daily loperamide (IMODIUM A-D) 2 mg, As needed metFORMIN XR (GLUCOPHAGE-XR) 750 mg, Oral, 2 times daily before meals Multiple Vitamins-Minerals (Centrum Silver 50+Men) tablet 1 tablet, Daily tamsulosin (FLOMAX) 0.4 mg, Oral, Every evening ALLERGIES: No Known Allergies REVIEW OF SYMPTOMS: Review of Systems Constitutional: Negative for activity change, appetite change, unexpected weight change and weight loss. HENT: Negative for ear pain, nosebleeds, sneezing, trouble swallowing and voice change. Eyes: Negative for blurred vision, pain, discharge and visual disturbance. Respiratory: Negative for apnea, chest tightness, shortness of breath and wheezing. Cardiovascular: Negative for chest pain, palpitations and leg swelling. Gastrointestinal: Negative for abdominal distention, blood in stool, constipation and diarrhea. Genitourinary: Negative for decreased urine volume, difficulty urinating, dysuria and hematuria. Skin: Negative for color change. Neurological: Negative for dizziness, tremors, seizures and headaches. Psychiatric/Behavioral: Negative for agitation, decreased concentration, hallucinations, self-injury and suicidal ideas. The patient is not nervous/anxious. Hematological: Negative for adenopathy. Does not bruise/bleed easily. Endocrine: Negative for cold intolerance, heat intolerance, polydipsia, polyphagia and polyuria. Allergic/Immunologic: Negative for environmental allergies and food allergies. PAST MEDICAL HISTORY Past Medical History: Diagnosis Date CAD (coronary artery disease) ([facility]) 12/04/2023 Cigarette nicotine dependence without complication 12/04/2023 History of adenomatous polyp of colon 12/04/2023 Hyperlipidemia, mixed ([facility]) 12/04/2023 Hypertension ([facility]) 12/04/2023 Kidney stone on left side 12/04/2023 Lumbar radiculopathy Osteoarthritis of both hips, unspecified osteoarthritis type 12/04/2023 Pancreatitis 12/04/2023 Tobacco user 12/04/2023 Type 2 diabetes mellitus ([facility]) 12/04/2023 History reviewed. No pertinent surgical history. family history is not on file. OBJECTIVE: Visit Vitals BP 128/78 (BP Location: Right arm, Patient Position: Sitting, BP Cuff Size: Adult) Pulse 101 Temp 98.5 F (Temporal) Resp 20 Wt 227 lb 12.8 oz SpO2 95% BMI 31.77 kg/m Smoking Status Every Day BSA 2.27 m Physical Exam Vitals and nursing note [...] is normal. Breath sounds: Normal breath sounds. No wheezing or rales. Abdominal: General: Bowel sounds are normal. Palpations: Abdomen is soft. Musculoskeletal: Cervical back: Neck supple. Right lower leg: No edema. Left lower leg: No edema. Skin: General: Skin is warm and dry. Capillary Refill: Capillary refill takes 2 to 3 seconds. Neurological: General: No focal deficit present. Mental Status: He is alert. Psychiatric: Mood and Affect: Mood normal. Behavior: Behavior normal. Thought Content: Thought content normal. Judgment: Judgment normal. ASSESSMENT AND PLAN: Follow up in about 3 months (around 03/01/2025) for Recheck. Problem List Items Addressed This Visit CAD (coronary artery disease) ([facility]) Calcifications noted on chest CT Current meds: asa, statin, mandy Strong family hx of CAD No active chest pain Will order stress test Relevant Orders Stress test with myocardial perfusion Type 2 diabetes mellitus without complications ([facility]) - Primary Check blood sugars daily, notify if <70 or >200. Take medications (pills or insulin) as directed. Monitor for s/s of hypoglycemia (sweaty, dizziness, nausea, vomiting, or shakiness). Watch for increase in thirst, urination, or appetite. Inspect feet frequently monitoring for open wounds , and also recommend yearly eye exam. Pt should attempt to remain as physically active as chronic conditions allow, as well as trying to follow a diet low in carbohydrates, and simple sugars. Current meds: asa, statin, mandy, metfromin A1c: 5.6% 12/02/24 Relevant Medications aspirin 81 MG EC tablet atorvastatin (Lipitor) 80 MG tablet metFORMIN XR (Glucophage-XR) 750 MG 24 hr tablet Other Relevant Orders POCT glycosylated hemoglobin (Hb A1C) docked device (Completed) Hyperlipidemia, mixed ([facility]) On statin therapy Check labs yearly, and prn dose changes Relevant Orders Stress test with myocardial perfusion Cigarette nicotine dependence without complication The patient has been advised of the risks of continued smoking: stroke, VA, all forms of cancer, lung disease, and . Options for quitting smoking include: cold turkey, hypnosis, acupuncture, nicotine replacement meds (gum, lozenges, and patches), Buproprion, and Varenicline. At this time pt is encouraged to evaluate their goals for wanting to quit smoking, and reach out to provider when ready to start this process Relevant Orders Stress test with myocardial perfusion Primary hypertension ([facility]) Please check blood pressure daily and record DASH diet Limit caffeine Take medication as directed Contact office if chest pain, pressure, dizziness, shortness of breath, swelling legs Recommend slow position changes Current med: lisinopril Relevant Medications aspirin 81 MG EC tablet lisinopril 10 MG tablet Other Relevant Orders Stress test with myocardial perfusion BPH (benign prostatic hyperplasia) Continue with Urology Relevant Medications tamsulosin (Flomax) 0.4 MG 24 hr capsule Elevated PSA Has been referred to urology Current meds: flomax Multiple pulmonary nodules Follows with Dr Des Dewitt Centrilobular emphysema ([facility]/HCC) No current daily inhalers for treatment Does continue with smoking Class 1 obesity due to excess calories with serious comorbidity in adult Discussed with patient their BMI (actual, verses recommended). We have also discussed lifestyle modifications: attempts to perform physical activity as chronic conditions allow, also to monitor dietary intake: increasing protein/fruits/veggies and lowering carb intake (unless contraindicated). Limit sodas, juices, and sugary drinks. Family history of early CAD Relevant Orders Stress test with myocardial perfusion Other Visit Diagnoses Controlled type 2 diabetes mellitus without complication, without long-term current use of insulin ([facility]) Relevant Medications metFORMIN XR (Glucophage-XR) 750 MG 24 hr tablet Associated Problem(s): Class 1 obesity due to excess calories with serious comorbidity in adult Discussed with patient their BMI (actual, verses recommended). We have also discussed lifestyle modifications: attempts to perform physical activity as chronic conditions allow, also to monitor dietary intake: increasing protein/fruits/veggies and lowering carb intake (unless contraindicated). Limit sodas, juices, and sugary drinks. Associated Problem(s): Hyperlipidemia, mixed ([facility]) On statin therapy Check labs yearly, and prn dose changes Associated Problem(s): Cigarette nicotine dependence without complication The patient has been advised of the risks of continued smoking: stroke, VA, all forms of cancer, lung disease, and . Options for quitting smoking include: cold turkey, hypnosis, acupuncture, nicotine replacement meds (gum, lozenges, and patches), Buproprion, and Varenicline. At this time pt is encouraged to evaluate their goals for wanting to quit smoking, and reach out to provider when ready to start this process Associated Problem(s): Type 2 diabetes mellitus without complications ([facility]) Check blood sugars daily, notify if <70 or >200. Take medications (pills or insulin) as directed. Monitor for s/s of hypoglycemia (sweaty, dizziness, nausea, vomiting, or shakiness). Watch for increase in thirst, urination, or appetite. Inspect feet frequently monitoring for open wounds , and also recommend yearly eye exam. Pt should attempt to remain as physically active as chronic conditions allow, as well as trying to follow a diet low in carbohydrates, and simple sugars. Current meds: asa, statin, mandy, metfromin A1c: 5.6% 12/02/24 Associated Problem(s): Elevated PSA Has been referred to urology Current meds: flomax Associated Problem(s): Primary hypertension ([facility]) Please check blood pressure daily and record DASH diet Limit caffeine Take medication as directed Contact office if chest pain, pressure, dizziness, shortness of breath, swelling legs Recommend slow position changes Current med: lisinopril Associated Problem(s): CAD (coronary artery disease) ([facility]) Calcifications noted on chest CT Current meds: asa, statin, mandy Strong family hx of CAD No active chest pain Will order stress test Associated Problem(s): Centrilobular emphysema (CMS/HCC) No current daily inhalers for treatment Does continue with smoking Associated Problem(s): Multiple pulmonary nodules Follows with Dr Des Dewitt documented in this encounter [facility] 12-02-2024 Instructions Mildred Corral NP - 12/02/2024 8:40 AM EST Keep appt with Urology Will order stress test at [facility] No medication changes documented in this encounter [facility] 06-25-2024 Hospital Discharge instructions Patient Education 06/25/2024 [...] treatment? Where to find more information [employer] [place] [employer]: www.cancer.org [place] [employer]: www.auanet.org Contact a health care [...] provider. Document Revised: 03/21/2022 Document Reviewed: 03/21/2022 [facility] Patient Education 2023 [employer]. 06/25/2024 13:09:32 Benign Prostatic Hyperplasia Benign Prostatic [...] urethra. Follow these instructions at home: Take [id number] and prescription medicines only as told by [...] provider. Document Revised: 04/13/2022 Document Reviewed: 04/13/2022 [facility] Patient Education 2023 [employer]. Follow Up Care 06/05/2024 09:20:17 With:SENG Carpio APRN, Moni Freguson, KARISSA, URL Address: When: Unknown Comments:pending MRI [facility] 06-25-2024 Note Urology Office/Clini c Note HPI [...] with voice recognition artificial intelligence software, specifically mCASH, Spinal Modulation and or X-[employer]OLT Orthapaedics. Substitutions may have occurred due to the [...] to proceed w/ MRI. -prostate MRI at [facility]. Pt knows that this could lead to [...] Urnls Dip Stick Auto w/o Microscopy POC 65236 2. BPH (benign prostatic hyperplasia) (N40.0: Benign [...] to monitor Follow-up With When Contact Information SENG Carpio APRN, Moni Ferguson, FAM, URL Additional Instructions: pending MRI Patient [...] Father. Immunizations Vaccine (more content not included)... [facility] Comment on above: Result Comment: Elec tronically Signed By: SENG Carpio APRN, [place] X\.br\Date and Time Signed: 06/25/24 13:10 EDT 06-25-2024 [...] Where to find more information ? The [place] [employer]: www.cancer.org ? [place] [employer]: www.auanet.org Contact a health care [...] of the rectum. (more content not included)... [facility] 06-03-2024 History of Present illness Narrative [...] of the risks of continued smoking: stroke, VA, all forms of cancer, lung disease, and [...] being taken. He does not see a stone setter metal optical frames.Eye exam is current. SUBJECTIVE: MEDICATIONS: Current Outpatient [...] History: Diagnosis Date CAD (coronary artery disease) ([facility]) 12/04/2023 Cigarette nicotine dependence without complication 12/04/2023 History of adenomatous polyp of colon 12/04/2023 Hyperlipidemia, mixed ([facility]) 12/04/2023 Hypertension (CMS/HCC) 12/04/2023 Kidney stone on left side 12/04/2023 Lumbar radiculopathy Osteoarthritis of both hips, unspecified osteoarthritis type 12/04/2023 Pancreatitis 12/04/2023 Tobacco user 12/04/2023 Type 2 diabetes mellitus (CMS/HCC) 12/04/2023 History reviewed. No pertinent surgical history. [...] of the risks of continued smoking: stroke, VA, all forms of cancer, lung disease, and [...] to quit smoking documented in this encounter [facility] 02-24-2022 Hospital Discharge instructions Patient Education 02/24/2022 [...] Follow these instructions at home: Medicines Take efny-crf-fspjzpw and prescription medicines only as told by [...] 10/14/2008 Document Revised: 01/06/2020 Document Reviewed: 08/16/2017 [facility] Patient Education 2020 [employer]. 02/24/2022 16:14:46 Drsm-Cltl-as Utereroscopy,Lithotripsy, Stone Extraction, Stent Placement (Custom) [facility] [place], [place] Post-operative Instructions for Ureteroscopy, Laser Lithotripsy, [...] other reasons. 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 Extracted from: Title:Pre-anesthesia - Adult Author:Parker Fields Jr., DO Date:02/24/22 Plan [place] [employer] Anesthesiologists (ASA) physical status classification: Class III. Anesthetic Preoperative Plan Anesthesia: General. . Anesthetic plan, risks, benefits, and alternatives discussed with the patient and/or family. Patient verbalized understanding. Adverse reactions, complications, and alternatives discujssed. Consent signed and on chart.. [facility] information available [facility] Work Phone: Evaluation note* Diagnosis Lung nodule, multiple- Primary documented in this encounter [facility] HealthcareEvaluation note* Diagnosis Type 2 diabetes mellitus without complication, without long-term current use of insulin (CMS/HCC)- Primary History of adenomatous polyp of colon Personal history of colonic polyps Primary hypertension (CMS/HCC) Unspecified essential hypertension 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 (CMS/HCC) Cigarette nicotine [...] of insulin (CMS/HCC) documented in this encounter [facility] HealthcareEvaluation note* Diagnosis Type 2 diabetes mellitus without complication, without long-term current use of insulin (CMS/HCC)- Primary History of adenomatous polyp of colon Personal history of colonic polyps Primary hypertension (CMS/HCC) Unspecified essential hypertension 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 (CMS/HCC) Cigarette nicotine [...] nodule, multiple- Primary documented in this encounter [facility] HealthcareEvaluation note* Diagnosis Primary hypertension (CMS/HCC)- Primary Unspecified essential hypertension Centrilobular emphysema (CMS/HCC) BMI 32.0-32.9,adult Type 2 diabetes mellitus without complication, without long-term current use of insulin (CMS/HCC) Cigarette nicotine dependence without complication Rising PSA level documented in this encounter [facility] HealthcareEvaluation note* Diagnosis Type 2 diabetes mellitus without complication, without long-term current use of insulin (CMS/HCC)- Primary History of adenomatous polyp of colon Personal history of colonic polyps Primary hypertension (CMS/HCC) Unspecified essential hypertension 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 (CMS/HCC) Cigarette nicotine [...] nicotine dependence without complication Rising PSA level Primary hypertension (CMS/HCC) Unspecified essential hypertension documented in this encounter [facility] HealthcareEvaluation note* Diagnosis Type 2 diabetes mellitus without complication, without long-term current use of insulin (CMS/HCC)- Primary History of adenomatous polyp of colon Personal history of colonic polyps Primary hypertension (CMS/HCC) Unspecified essential hypertension 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 (CMS/HCC) Cigarette nicotine [...] long-term current use of insulin (CMS/HCC)- Primary Type 2 diabetes mellitus without complications (CMS/HCC) Centrilobular emphysema (CMS/HCC) Multiple pulmonary nodules Other diseases of lung, not elsewhere classified 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 (CMS/HCC) Primary hypertension (CMS/HCC) Unspecified essential hypertension Elevated PSA Elevated prostate specific antigen (PSA) Benign prostatic hyperplasia, unspecified whether lower urinary tract symptoms present Cigarette nicotine dependence without complication Hyperlipidemia, mixed (CMS/HCC) Mixed hyperlipidemia Class 1 obesity due to excess calories with serious comorbidity in adult, unspecified BMI Controlled type 2 diabetes mellitus without complication, without long-term current use of insulin (CMS/HCC) Family history of early CAD Family history of ischemic heart disease documented in this encounter [facility] HealthcareEvaluation note* Diagnosis Type 2 diabetes mellitus without complication, without long-term current use of insulin (CMS/HCC)- Primary History of adenomatous polyp of colon Personal history of colonic polyps Primary hypertension (CMS/HCC) Unspecified essential hypertension 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 (CMS/HCC) Cigarette nicotine [...] long-term current use of insulin (CMS/HCC)- Primary Type 2 diabetes mellitus without complications (CMS/HCC) Centrilobular emphysema (CMS/HCC) Multiple pulmonary nodules Other diseases of lung, not elsewhere classified 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 (CMS/HCC) Primary hypertension (CMS/HCC) Unspecified essential hypertension Elevated PSA Elevated prostate specific antigen (PSA) Benign prostatic hyperplasia, unspecified whether lower urinary tract symptoms present Cigarette nicotine dependence without complication Hyperlipidemia, mixed (CMS/HCC) Mixed hyperlipidemia Class 1 obesity due to excess calories with serious comorbidity in adult, unspecified BMI Controlled type 2 diabetes mellitus without complication, without long-term current use of insulin (CMS/HCC) Family history of early CAD Family history of ischemic heart disease Type 2 diabetes mellitus without complications (CMS/HCC) Primary hypertension (CMS/HCC) Unspecified essential hypertension Type 2 diabetes mellitus without complication, without long-term current use of insulin (CMS/HCC) Controlled type 2 diabetes mellitus without complication, without long-term current use of insulin (CMS/HCC) Benign prostatic hyperplasia, unspecified whether lower urinary tract symptoms present documented [facility] encounter [facility] Narrative No data available for this section [facility] No data available for this section [facility] Summary Purpose Family History No Family History Records FoundNo Family History Records Found No data available for this section No Family History Records FoundNo Family History [...] IV contrast Mildred Corral, CARLA [address] [place] [address] Referral ID Status Reason Start Date Expiration Date V isits Requested Visits Authorized [id number] Pending Review 07/15/2024 01/11/2025 1 1 Additional Source Comments (unrecognized sect ion and content) No Status Records FoundNo Status Records FoundNo Status Records FoundNo Status Records Found INFORMATION SOURCE (unrecogn ized section and content) DATE CREATED AUTHOR 12/23/2022 [facility] DATE CREATED AUTHOR AUTHOR'S ORGANIZ ATION 08/04/2024 [facility] DATE CREATED AUTHOR AUTHOR'S ORGANIZ ATION 12/03/2024 [facility] DATE CREATED AUTHOR AUTHOR'S ORGANIZ ATION 12/03/2024 [facility] Care Teams (unrecognized sec tion and content) Team Status: Active Member Role Status Dates Mildred Corral Primary Care Provider Active Team Status: Inactive Member Role Status Dates Mildred Corral Primary Care Provide r, Attending Provider Active Start: March 25, 2024 End: March 25, 2024 Quill Cleaner Relationship Specialty Start Date End Date Pavan Dailey MD [address] [place] [id number] PCP - General Family Medicine 11/06/23 Team Status: Inactive Member Role Status Dates Mildred Corral Primary Care Provider Active Sta rt: July 29, 2024 End: July 29, 2024 ROBIN Werner Attending Provider Active Start: July 29, 2024 End: July 29, 2024 Quill Cleaner Relationship Specialty Start Date End Date Pavan Dailey MD [address] [place] [id number] PCP - General Family Medicine 11/06/23 Quill Cleaner Relationship Specialty Start Date End Date Pavan Dailey MD [address] [place] [phone] PCP - General Family Medicine 11/06/23 Quill Cleaner Relationship Specialty Start Date End Date Pavan Dailey MD [address] [place] [id number] PCP - General Family Medicine 11/06/23 Quill Cleaner Relationship Specialty Start Date End Date Pavan Dailey MD [address] [place] [phone] PCP - General Family Medicine 11/06/23 Quill Cleaner Relationship Specialty Start Date End Date Pavan Dailey MD [address] [place] [phone] PCP - General Family Medicine 11/06/23 Quill Cleaner Relationship Specialty Start Date End Date Pavan Dailey MD [address] [place] [id number] PCP - General Family Medicine 11/06/23 Quill Cleaner Relationship Specialty Start Date End Date Pavan Dailey MD [address] [place] [phone] PCP - General Family Medicine 11/06/23 Quill Cleaner Relationship Specialty Start Date End Date Pavan Dailey MD [address] [place] [address] PCP - General Family Medicine 11/06/23 Goals (unrecognized section and content) Goals may be documented in a n alternate section Reason for Visit (unrecogniz ed section and content) Reason Comments Med Refill Reason Onset Date Comments Med Refill 11/28/2024 FOR RECORDS PERTAINING TO PATIENTS WHO ARE [...] BE BASED ON THE PRIMARY CLINICAL RECORDS. [employer] [facility]. provides no warranty or guarantee of the accuracy or completeness of information in this document.
[2024-12-07 08:56] LABS: Prostate Specific Antigen Dx 0.56 ng/mL (<=4.00)
== END 2024-12-07 06:42 | disposition home or self-care (01) ==
PROVIDERS: PCP Nurse Practitioner; Visit Provider Urology
DX: R97.20 Elevated prostate specific antigen [PSA] (principal)
CPT/HCPCS: 36415; 84153

== ENCOUNTER 2025-06-14 07:13 | Outpatient (OUT) | payer BC, SELFPAY ==
--- OUTSIDE RECORDS SUMMARY | 2024-10-29 04:30 | XMS_ITS ---
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 Medications Medication SIG (Take, Route, Frequency, Duration) Notes Start Date End Date Status Aspirin 81 81 MG 1 tablet Orally Once a day Active Atorvastatin Calcium 80 MG TAKE 1 TABLET BY MOUTH AT BEDTIME Oral for 30 Days Active metFORMIN HCl ER 750 MG TAKE 1 TABLET BY MOUTH IN THE MORNING AND 1 IN THE EVENING BEFORE MEAL(S) Oral for 30 Days Active Centrum Silver 50+Men - as directed Orally Active Tamsulosin HCl 0.4 MG TAKE 1 CAPSULE BY MOUTH ONCE DAILY Oral for 30 Days Active Lisinopril 10 MG Oral for 30 Days Active Social History Tobacco Use: Social History Observation Description Date Details (start date - stop date) Current Smoker NA - NA Tobacco Control (Standard) Question Answer Notes Tobacco use: Current every day smoker Additional Findings: Tobacco user Heavy cigarett e smoker (20-39 cigs/day) Problems Problem Type SNOMED Code ICD Code Onset Dates Problem Status W/U Status Risk Notes Problem Mental disorder caused by drug (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) Cigarette nicotine dependence with nicotine-induced disorder (F17.219) Active confirmed Problem Paraseptal emphysema (81834234) Paraseptal emphysema (J43.8) Active confirmed Problem Multiple pulmonary nodules (997292200) Multiple pulmonary nodules (R91.8) Active confirmed Problem Centrilobular emphysema (46736279) Centrilobular emphysema (J43.2) Active confirmed Problem Elevated PSA (371633619) Elevated PSA (R97.20) Active confirmed Vital Signs Weight 230.8 lbs 10/29/2024 Height 71 in 10/29/2024 Blood pressure systolic 168 mm Hg 10/29/19 25 Blood pressure diastolic 83 mm Hg 025 Temperature 96.8 degrees Fahrenheit 10/29/19 25 Heart Rate 110 /min 10/29/2024 Respiratory Rate 18 /min 10/29/2024 BMI 32.19 kg/m2 10/29/2024 Oximetry 95 % 10/29/2024 Encounters Encounter Location Date Provider Diagnosis [facility] [place] [address] [place] [address] 10/29/2024 Felix Nunes Multiple pulmonary nodules R91.8 ; Centrilobular emphysema J43.2 ; Elevated PSA R97.20 and Cigarette nicotine dependence with nicotine-induced disorder F17.219 Assessments Encounter Date Diagnosis (ICD Code) Assessment Notes Treatment Notes Treatment Clinical Notes Section Notes 10/29/2024 Multiple pulmonary nodules (ICD-10 - R91.8) New 7.7mm HALEY nodule on chest CT 08/12/2024 compared to LDCT 12/25/2023 and PET 03/25/2024. Barely perceptible on soft tissue window. Etiology unclear. Overall suspicion is inflammatory given its appearance, but cannot rule out cancer due to his heavy smoking history. Additionally, unclear exactly what is going on with the prostate exam, so if he does have prostate cancer, there is always a concern for metastatic disease. The nodule is too small for repeat PET and difficult to biopsy. At the time of this visit, a 3-month follow-up chest CT would be available in only 2 weeks, so I suggested we order a chest CT for the beginning of November 2024 and follow-up afterward. The patient voiced agreement. Regarding the other suspicious nodule which is 1.5 cm in the right LL, that appears to be present as far back as 11/05/2022 in my opinion. Soft tissue windows show a decrease in size, though stable/unchanged on lung windows. This was PET negative. Explained the patient that he is at risk for having recurrent nodules especially if he continues to smoke. 10/29/2024 Centrilobular emphysema (ICD-10 - J43.2) Both paraseptal and centrilobular emphysematous changes noted on chest CT. This would be most likely secondary to his lengthy smoking history. His only symptom is a daily productive cough after the mornings for cigarette. He does not feel that he requires any treatment at this current time. Holding off on any PFT. He is counseled on smoking cessation. 10/29/2024 Elevated PSA (ICD-10 - R97.20) PCPs notes state and increasing PSA. He also has mild FDG uptake in the prostate on PET 03/25/2024 with SUV 3.4. He has a visit scheduled with urology (Dr. Su) in the upcoming months. 10/29/2024 Cigarette nicotine dependence with nicotine-induced disorder (ICD-10 - F17.219) 10/29/2024 Other ~2ppd x 49 years (2024) Patient was counseled on the importance of smoking cessation. No LDCT screening will continue to monitor the suspicious nodules. Plan Of Treatment Treatment Notes Assessment Notes Multiple pulmonary nodules New 7.7mm HALEY nodule on chest CT 08/12/2024 compared to LDCT 12/25/2023 and PET 03/25/2024. Barely perceptible on soft tissue window. Etiology unclear. Overall suspicion is inflammatory given its appearance, but cannot rule out cancer due to his heavy smoking history. Additionally, unclear exactly what is going on with the prostate exam, so if he does have prostate cancer, there is always a concern for metastatic disease. The nodule is too small for repeat PET and difficult to biopsy. At the time of this visit, a 3-month follow-up chest CT would be available in only 2 weeks, so I suggested we order a chest CT for the beginning of November 2024 and follow-up afterward. The patient voiced agreement. Regarding the other suspicious nodule which is 1.5 cm in the right LL, that appears to be present as far back as 11/05/2022 in my opinion. Soft tissue windows show a decrease in size, though stable/unchanged on lung windows. This was PET negative. Explained the patient that he is at risk for having recurrent nodules especially if he continues to smoke. Centrilobular emphysema Both paraseptal and centrilobular emphysematous changes noted on chest CT. This would be most likely secondary to his lengthy smoking history. His only symptom is a daily productive cough after the mornings for cigarette. He does not feel that he requires any treatment at this current time. Holding off on any PFT. He is counseled on smoking cessation. Elevated PSA PCPs notes state and increasing PSA. He also has mild FDG uptake in the prostate on PET 03/25/2024 with SUV 3.4. He has a visit scheduled with urology (Dr. Su) in the upcoming months. Other ~2ppd x 49 years (2024) Patient was counseled on the importance of smoking cessation. No LDCT screening will continue to monitor the suspicious nodules. Next Appt Details Follow Up: 1 Month, Reason: F/U chest CT for nodules Progress Notes * Te RENE EDOB: [birth year] (69 yo M)Acc No.[id number]:10/29/2024 New Patient Patient: Te AVENDANO Provider: Khoa Nunes DO :1955 A ge:69 Y S ex:Male Date:10/29/2024 Address:[address] [place] [address], [id number] Pcp:Mildred Corral LABORATORY ASSOCIATE Check In:08:16 AM ESTCheck O ut:08:56 AM EST Subjective: * Chief Complaints: * N P- Lung Nodule * HPI: G eneral: NEW PATIENT 69yo male presents with abnormal chest imaging. Patient initially had testing with LDCT on 11/05/2022. Interpretation was central and paraseptal emphysema with RUL GGO, scored RADS-2. Subsequent LDCT from 12/25/2023 was interpreted as having scattered RLL nodules largest at 1.5cm, scored RADS-4A. The interpreting radiologist did not compare with prior LDCT from 11/05/2022. I personally reviewed the images and the after mentioned suspicious nodule is present on the prior study; in fact, there is decrease size of the 1.5cm nodule on soft tissue windows with the latter study. Regardless, because it was not compared and scored high, a PET CT was done on 03/25/2024. There is no uptake in the chest, but there is a positive uptake in the prostate with SUV 3.4. Follow-up chest CT 08/12/2024 showed stable RLL findings and a new 7.7mm HALEY nodule. I personally reviewed this imaging as well. The previously suspicious nodule is unchanged in size on both lung and soft tissue windows. The new 7.7mm nodule is barely perceptible on soft tissue windows. The patient denies any decreased appetite or unexplained weight loss, excessive night sweats, fevers, or hemoptysis. Patient has a long history of smoking, approximately 1.5-2 PPD x 49 years. 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 He previously was in the [employer] and then afterwards the [employer]. He was stationed over in [place] for about 6 years. He has no pets. He has a daily productive cough in the morning, usually after his first cigarette. Denies any wheezes or dyspnea on exertion. Going back to the PET scan, there was uptake in the prostate. It appears that his PSA has been increasing as well. He has an appointment with Dr. Su within the next several months for urological evaluation. MA Intake Comments:. Patient is referred from Mildred Corral NP for a Lung Nodule. Patient complains of a Cough that is worse in the morning. Patient denies SOB, hemoptysis, fevers, chills or night sweats. Patient denies being seen by Pulmonary in the past. Patient is currently not using O2/PAP Therapy at this time. 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 Patient admits to smoking 1.5-2PPD. * ROS: G eneral/Constitutional: Fever or sweats d enies. C hange of appetite d enies. C hills d enies. W eight Change d enies. H EENT: Dry mouth d enies. S ore throat d enies. O ral Ulcers d enies. P ost Nasal Drip D enies. C ongestion D enies. H oarseness?Denies. C ardiovascular: Tachycardia d enies. E laurent D enies. C hest pain d enies. P alpitations d enies. R espiratory: Chest tightness d enies. P leurisy D enies. D yspnea d enies. C ough M ild daily productive cough in the morning, typically after his first cigarette. H emoptysis d enies. W heezing d enies. G astrointestinal: Acid Reflux/GERD/Heartburn d enies. D ysphagia d enies. M usculoskeletal: Arthralgias/joint pain D enies. S kin: Easy bruising d enies. R merlin d enies. ? N eurologic: Seizures d enies. T remor d enies. H ematology: Abnormal Bleeding d enies. P sychiatric: Anxiety d enies. * Active Problem List J43.2 Centrilobular emphys susan Modified On:10/29/2024/U Status:confirmed F17.219 Cigarette nicotine d ependence with nicotine-induced disorder Modified On:10/29/2024U Status:confirmed R91.8 Multiple pulmonary n odules Modified On:10/29/2024U Status:confirmed J43.8 Paraseptal emphysema Modified On:10/29/2024U Status:confirmed R97.20 Elevated PSA Modified On:10/29/2024U Status:confirmed * Medical History: * Surgical History: D enies Past Surgical History * Hospitalization/Major Diagno stic Procedure: D enies Past Hospitalization * Family History: F ather: stroke, diagnosed with Unspecified heart disease. M other: respiratory diseases, diagnosed with Unspecified heart disease. B rother(s): diagnosed with Other malignant neoplasm of unspecified site, Colon cancer. 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 D rugs/Alcohol: D rugs H ave you used drugs other than those for medical reasons in the past 12 months? N o D oes the Patient have a History of Drug Abuse in the Past? N o Caffeine I ntake: 3 -4 cups per day Coffee/Soda Do you drink alcohol?: Yes, Socially. Do you smoke marijuana?: Denies. * Medications: T akingAspirin 81(Aspirin) 81 MG Tablet Delayed Release 1 tablet Orally Once a day Atorvastatin Calcium 80 MG Tablet TAKE 1 TABLET BY MOUTH AT BEDTIME Oral Centrum Silver 50+Men(Multiple Vitamins-Minerals) - Tablet as directed Orally Lisinopril 10 MG Tablet Oral metFORMIN HCl ER 750 MG Tablet Extended Release 24 Hour TAKE 1 TABLET BY MOUTH IN THE MORNING AND 1 IN THE EVENING BEFORE MEAL(S) Oral Tamsulosin HCl 0.4 MG Capsule TAKE 1 CAPSULE BY MOUTH ONCE DAILY Oral Medication List reviewed and reconciled with the patientTaking Aspirin 81(Aspirin) 81 MG Tablet Delayed Release 1 tablet Orally Once a day Taking Atorvastatin Calcium 80 MG Tablet TAKE 1 TABLET BY MOUTH AT BEDTIME Oral Taking Centrum Silver 50+Men(Multiple Vitamins-Minerals) - Tablet as directed Orally Taking Lisinopril 10 MG Tablet Oral Taking metFORMIN HCl ER 750 MG Tablet Extended Release 24 Hour TAKE 1 TABLET BY MOUTH IN THE MORNING AND 1 IN THE EVENING BEFORE MEAL(S) Oral Taking Tamsulosin HCl 0.4 MG Capsule TAKE 1 CAPSULE BY MOUTH ONCE DAILY Oral Medication List reviewed and reconciled with the patient * Allergies: N .K.D.A.no[Allergies Verified] Objective: * Vitals: W t:230.8lbs, Ht:71in, BP:sittin/83mm Hg, Temp:Forehead:96.8F, HR:110/min, RR:18/min, BMI:32.19Index, Oxygen sat %:Room Air:95%, Ht-cm: 180.34 cm, Wt-k.69 kg. * Examination: E xam: GENERAL APPEARANCE: A ppears stated age. Skin N ormal. Mouth P ink and moist. Edentulous. Oropharynx M allampati Class III. Trachea M idline. Chest N ormal. Respiratory Normal M ovements, E ffort N ormal. Auscultation N ormal breath sounds. Cardiac M ild tachycardia, regular rhythm. Gastrointestinal N ormal. Vascular N o edema. Musculoskeletal N ormal posture. Neurological F ocal, intact. Psychiatric A lert and oriented x3. Mentation/Cognition N ormal. Assessment: * Assessment: 1. M ultiple pulmonary nodules - R91.8 (Primary) 2 . C entrilobular emphysema - J43.2 3 . E levated PSA - R97.20 4 . C igarette nicotine dependence with nicotine-induced disorder - F17.219 Plan: * Treatment: Notes: New 7.7mm HALEY nodule on chest CT 08/12/2024 compared to LDCT 12/25/2023 and PET 03/25/2024. Barely perceptible on soft tissue window. Etiology unclear. Overall suspicion is inflammatory given its appearance, but cannot rule out cancer due to his heavy smoking history. Additionally, unclear exactly what is going on with the prostate exam, so if he does have prostate cancer, there is always a concern for metastatic disease. The nodule is too small for repeat PET and difficult to biopsy. At the time of this visit, a 3-month follow-up chest CT would be available in only 2 weeks, so I suggested we order a chest CT for the beginning of November 2024 and follow-up afterward. The patient voiced agreeme nt. Regarding the other suspicious nodule which is 1.5 cm in the right LL, that appears to be present as far back as 11/05/2022 in my opinion. Soft tissue windows show a decrease in size, though stable/unchanged on lung windows. This was PET negative. Explained the patient that he is at risk for having recurrent nodules especially if he continues tosmoke.??2.?Centrilobular emphysema? Notes: Both paraseptal and centrilobular emphysematous changes noted on chest CT. This would be most likely secondary to his lengthy smoking history. His only symptom is a daily productive cough after the mornings for cigarette. He does not feel that he requires any treatment at this current time. Holdingoff on any PFT. He is counseled on smoking cessation.??3.?Elevated PSA? Notes: PCPs notes state and increasing PSA. He also has mild FDG uptake in the prostate on PET 03/25/2024 with SUV 3.4. He has a visit scheduled with urology (Dr. Su) in the upcoming months. ??4.?Others? Notes: ~2ppd x 49 years (2024) Patient was counseled on the importance of smoking cessation. No LDCT screening will continue to monitor the suspicious nodules.?? * Procedure Codes: * Preventive Medicine: COVID Vaccination: H as patient had COVID Vaccination? COVID Vaccination Y es 01/24/2022 Immunization Status: P neumovacc P t Refused. I nfluenza P t Refused. Screenings/Counseling: F ALL RISK SCREENING Fall Risk Assessment: N o falls in the past year Are you afraid of falling? N o T OBACCO ACTION PLAN Patient counselled on the dangers of tobacco use and urged to quit. 0 10/29/2024 Cessation counseling provided 0 10/29/2024 F RACHEL EXCLUSION Reason: P atient Reason refused/declined Type of Patient Reason: D rug declined by patient B NV ACTION PLAN Above Normal BMI Follow-up D ietary management education, guidance, and counseling * Follow Up: 1 Month (Reason: F/U chest CT for nodules) * * Sign off status: Completed Visit Status: C HK (Check Out) true * Provider: Khoa Nunes DO Date: 0 10/29/2024 Generated for Ricardo basilio/Diego/Johnsmitting on: 0 06/14/2025 07:18 AM EDT History and Physical Notes * HPI (History of Present Illness) Category Sub-Category Detail Notes Category Not es General Patient is refe rred from Mildred Corral NP for a Lung Nodule. Patient complains of a Cough that is worse in the morning. Patient denies SOB, hemoptysis, fevers, chills or night sweats. Patient denies being seen by Pulmonary in the past. Patient is currently not using O2/PAP Therapy at this time. 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 Patient admits to smoking 1.5-2PPD. Examination Category Sub-Category Detail Notes Category Not es Exam GENERAL APPEARANCE: Appears stated age Skin Normal Mouth [place] and moist. [place] tulous Trachea Midline Chest Normal Respiratory Normal Movements, Ef fort Normal Auscultation Normal breath sounds Cardiac Mild tachycardia, re gular rhythm Gastrointestinal Normal Vascular No edema Musculoskeletal Normal posture Neurological Focal, intact Psychiatric Alert and oriented x 3 Mentation/Cognition Normal Oropharynx Mallampati Class III
--- OUTSIDE RECORDS SUMMARY | 2024-10-29 12:18 | XMS_ITS ---
Author Organization [facility] [place] Address [address] [place] [address] Care Team Providers Care City Auditor Name Role Phone Mildred Corral CNP Primary Care Provider Felix Gilmore Unavailable [phone] Chest Scheduled Encounters Encounter Location Date Provider Diagnosis [facility] [address] [place] [address] 10/29/2024 Felix Nunes Plan Of Treatment No Information Progress Notes * Te RENE EDOB: 3 (69 yo M)Acc No.[id number]:10/29/2024 Patient: Marine JUNIORTe :1955 A ge:69 Y S ex:Male Address:[address] [place] [id number] * true * Date: Generated for Ricardo basilio/Diego/eTransmitting on: 0 06/14/2025 07:18 AM EDT
--- OUTSIDE RECORDS SUMMARY | 2024-11-26 03:30 | XMS_ITS ---
Author Organization [facility] in [place] Address [address] [place] [address] Care Team Providers Care Piece Dyer Name Role Phone Mildred Corral CNP Primary Care Provider Unavail able Felix Nunes Unavailable [phone] Allergies No Known Allergies REASON FOR VISIT 1m F/U - Nodules (CT) Medications Medication SIG (Take, Route, Frequency, Duration) Notes Start Date End Date Status metFORMIN HCl ER 750 MG TAKE 1 TABLET BY MOUTH IN THE MORNING AND 1 IN THE EVENING BEFORE MEAL(S) Oral for 30 Days Active Lisinopril 10 MG Oral for 30 Days Active Centrum Silver 50+Men - as directed Orally Active Atorvastatin Calcium 80 MG TAKE 1 TABLET BY MOUTH AT BEDTIME Oral for 30 Days Active Tamsulosin HCl 0.4 MG TAKE 1 CAPSULE BY MOUTH ONCE DAILY Oral for 30 Days Active Aspirin 81 81 MG 1 tablet Orally Once a day Active Social History Tobacco Use: Social History Observation Description Date Details (start date - stop date) Current Smoker NA - NA Tobacco Control (Standard) Question Answer Notes Tobacco use: Current every day smoker Additional Findings: Tobacco user Heavy cigarett e smoker (20-39 cigs/day) Vital Signs Weight 227.2 lbs 11/26/2024 Height 71 in 11/26/2024 Blood pressure systolic 154 mm Hg 11/26/19 25 Blood pressure diastolic 76 mm Hg 025 Temperature 96.4 degrees Fahrenheit 11/26/19 25 Heart Rate 101 /min 11/26/2024 Respiratory Rate 18 /min 11/26/2024 BMI 31.68 kg/m2 11/26/2024 Oximetry 94 % 11/26/2024 Encounters Encounter Location Date Provider Diagnosis [facility] [place] [address] [place] [address] 11/26/2024 Felix Nunes Multiple pulmonary nodules R91.8 ; Centrilobular emphysema J43.2 ; Elevated PSA R97.20 ; Cigarette nicotine dependence with nicotine-induced disorder F17.219 and Encounter for screening for malignant neoplasm of respiratory organs Z12.2 Assessments Encounter Date Diagnosis (ICD Code) Assessment Notes Treatment Notes Treatment Clinical Notes Section Notes 11/26/2024 Multiple pulmonary nodules (ICD-10 - R91.8) New 7.7mm HALEY nodule on chest CT 08/12/2024 compared to LDCT 12/25/2023 and PET 03/25/2024 has resolved on F/U chest CT 11/11/2024. The known right minor fissure/RLL 1.4-1.5cm has remained stable since 11/05/2022, PET negative. Can be monitored via LDCT at this point. Counseled on smoking cessation. 11/26/2024 Centrilobular emphysema (ICD-10 - J43.2) Both paraseptal and centrilobular emphysematous changes noted on chest CT. Patient has a daily productive cough. Does not feel he needs any treatment or w/up at this time. 11/26/2024 Elevated PSA (ICD-10 - R97.20) PCPs notes state and increasing PSA. He also has mild FDG uptake in the prostate on PET 03/25/2024 with SUV 3.4. Has appointment with Dr. Su later this month. 11/26/2024 Cigarette nicotine dependence with nicotine-induced disorder (ICD-10 - F17.219) 2ppd x 49 years = 98 pack-year history (2024) Discussed smoking cessation again. He states that he does not desire to quit at this time. He was advised to at least try to cut back. Will begin LDCT screening. 11/26/2024 Encounter for screening for malignant neoplasm of respiratory organs (ICD-10 - Z12.2) Low-dose CT (LDCT) was recommended for lung cancer screening. The patient meets criteria including age 50-77, a smoking history of at least 20 pack-years, is currently smoking or has ceased smoking within the past 15 years, and has no signs or symptoms of lung cancer. Shared decision making performed with the patient. After LDCT has been completed, will review report and/or imaging and provide appropriate recommendations for the patient, including additional follow up if needed. Patient was counseled on smoking cessation/continued tobacco abstinence. 11/26/2024 Other Plan Of Treatment Treatment Notes Assessment Notes Multiple pulmonary nodules New 7.7mm HALEY nodule on chest CT 08/12/2024 compared to LDCT 12/25/2023 and PET 03/25/2024 has resolved on F/U chest CT 11/11/2024. The known right minor fissure/RLL 1.4-1.5cm has remained stable since 11/05/2022, PET negative. Can be monitored via LDCT at this point. Counseled on smoking cessation. Centrilobular emphysema Both paraseptal and centrilobular emphysematous changes noted on chest CT. Patient has a daily productive cough. Does not feel he needs any treatment or w/up at this time. Elevated PSA PCPs notes state and increasing PSA. He also has mild FDG uptake in the prostate on PET 03/25/2024 with SUV 3.4. Has appointment with Dr. Su later this month. Cigarette nicotine dependenc e with nicotine-induced disorder 2ppd x 49 years = 98 pack-year history (2024) Discussed smoking cessation again. He states that he does not desire to quit at this time. He was advised to at least try to cut back. Will begin LDCT screening. Encounter for screening for malignant neoplasm of respiratory organs Low-dose CT (LDCT) was recommended for lung cancer screening. The patient meets criteria including age 50-77, a smoking history of at least 20 pack-years, is currently smoking or has ceased smoking within the past 15 years, and has no signs or symptoms of lung cancer. Shared decision making performed with the patient. After LDCT has been completed, will review report and/or imaging and provide appropriate recommendations for the patient, including additional follow up if needed. Patient was counseled on smoking cessation/continued tobacco abstinence. Future Test Test Name Order Date CT Chest Low Dose for Screening* 026 Next Appt Details Follow Up: 1 Year, Reason: L DCT Progress Notes * Te RENE EDOB: [birth year] (69 yo M)Acc No.[id number]:11/26/2024 Follow Up Patient: Te AVENDANO Provider: Khoa Nunes DO :1955 A ge:69 Y S ex:Male Date:11/26/2024 Address:[address] [place] [address] [address], [place], [phone] Pcp:Mildred Corral, ASSOCIATE COUNSEL Check In:07:12 AM ESTCheck O ut:07:55 AM EST Subjective: * Chief Complaints: * 1 m F/U - Nodules (CT) * HPI: G eneral: Patient is here to F/U on chest CT. Last imaging, there was a new 7.7mm HALEY nodule. F/U chest CT 11/11/2024 was reviewed with the patient: the new HALEY nodule has resolved. The previously identified 1.4cm right minor fissure density remains unchanged. The patient denies any decreased appetite or unexplained weight loss, excessive night sweats, fevers, or hemoptysis. Continues with a daily productive cough. Does not feel that he requires any inhaled treatment or w/up. No new symptoms. Still smoking. MA Intake Comments:. Patient presents for a follow-up after a recent CT Chest performed on 11/11/2024. Patient denies any complaints or concerns today with his breathing. 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 * ROS: G eneral/Constitutional: Fever or sweats [...] M ild daily productive cough in the morning. H emoptysis d enies. W heezing d [...] Problem List J43.2 Centrilobular emphys susan Modified On:10/29/2024U Status:confirmed F17.219 Cigarette nicotine d ependence with nicotine-induced disorder Modified On:10/29/2024 Status:confirmed R91.8 Multiple pulmonary n odules Modified On:10/29/2024 Status:confirmed J43.8 Paraseptal emphysema Modified On:10/29/2024 Status:confirmed R97.20 Elevated PSA Modified On:10/29/2024 Status:confirmed * Medical History: * Surgical History: N o Surgical History documented. 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 D rugs/Alcohol: D rugs H [...] N .K.D.A.no[Allergies Verified] Objective: * Vitals: W t:227.2lbs, Ht: 71 in, BP:sittin/76mm Hg, Temp:Forehead:96.4F, HR:101/min, RR:18/min, BMI:31.68Index, Oxygen sat %:Room Air:94%, Ht-cm: 180.34 cm, Wt-k.06 kg. * Examination: E xam: GENERAL APPEARANCE: A ppears stated age. Skin N ormal. Mouth P ink and moist. Edentulous. Oropharynx M allampati Class III. Trachea M idline. Chest N ormal. Respiratory Normal M ovements, E ffort N ormal. Auscultation N ormal breath sounds, no wheezes, crackles, or rhonchi. Cardiac M ild tachycardia, regular rhythm. Gastrointestinal [...] nicotine dependence with nicotine-induced disorder - F17.219 5 . E ncounter for screening for malignant neoplasm of respiratory organs - Z12.2 Plan: * Treatment: 2. C entrilobular emphysema Notes: Both paraseptal and centrilobular emphysematous changes noted on chest CT. Patient has a daily productive cough. Does not feel he needs any treatment or w/up at this time. 3. E levated PSA Notes: PCPs notes state and increasing PSA. He also has mild FDG uptake in the prostate on PET 03/25/2024 with SUV 3.4. Has appointment with Dr. Su later this month. 4. C igarette nicotine dependence with nicotine-induced disorder I maging: CT Chest Low Dose for Screening* (Ordered for 11/09/2025) Notes: 2ppd x 49 years = 98 pack-year history (2024) Discussed smoking cessation again. He states that he does not desire to quit at this time. He was advised to at least try to cut back. Will begin LDCT screening. 5. E ncounter for screening for malignant neoplasm of respiratory organs I maging: CT Chest Low Dose for Screening* (Ordered for 11/09/2025) Notes: Low-dose CT (LDCT) was recommended for lung cancer screening. The patient meets criteria including age 50-77, a smoking history of at least 20 pack-years, is currently smoking or has ceased smoking within the past 15 years, and has no signs or symptoms of lung cancer. Shared decision making performed with the patient. After LDCT has been completed, will review report and/or imaging and provide appropriate recommendations for the patient, including additional follow up if needed. Patient was counseled on smoking cessation/continued tobacco abstinence. * Procedure Codes: * Preventive Medicine: COVID [...] tobacco use and urged to quit. 0 11/26/2024 Cessation counseling provided 0 11/26/2024 Emilee RAMOS EXCLUSION Reason: P atient Reason refused/declined Type of Patient Reason: D rug declined by patient B IN [employer] PLAN Above Normal BMI Follow-up D ietary management education, guidance, and counseling * Follow Up: 1 Year (Reason: LDCT) * * Sign off status: Completed Visit Status: C HK (Check Out) true * Provider: Khoa Nunes DO Date: 0 11/26/2024 Generated for Ricardo basilio/Diego/Jumaitting on: 0 06/14/2025 07:18 AM EDT History and Physical Notes * HPI (History of Present Illness) Category Sub-Category Detail Notes Category Not es General Patient present s for a follow-up after a recent CT Chest performed on 11/11/2024. Patient denies any complaints or concerns today with his breathing. 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 Examination Category Sub-Category Detail Notes Category Not es Exam GENERAL APPEARANCE: Appears stated age Skin Normal Mouth Vandiver and moist. Renuka tulous Trachea Midline Chest Normal Respiratory Normal Movements, Ef fort Normal Auscultation Normal breath sounds , no wheezes, crackles, or rhonchi Cardiac Mild tachycardia, re gular rhythm Gastrointestinal Normal Vascular No edema Musculoskeletal Normal posture Neurological Focal, intact Psychiatric Alert and oriented x 3 Mentation/Cognition Normal Oropharynx Mallampati Class III
--- OUTSIDE RECORDS SUMMARY | 2025-06-02 07:44 | XMS_ITS ---
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
--- OUTSIDE RECORDS SUMMARY | 2025-06-02 07:57 | XMS_ITS ---
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
--- OUTSIDE RECORDS SUMMARY | 2025-06-02 08:40 | XMS_ITS | Encounter Summary ---
Author Organization [facility] Address [address] [place] [address] Care Team Providers Care X Ray Technologist Name Role Phone Pavan Dailey MD Primary Care Provider [phone] Mildred Corral NP Unavailable [phone] Reason for Referral * Imaging (Routine) - Authorized Specialty Diagnoses / Procedures Referred By Contac t Referred To Contact Radiology Diagnoses Primary hypertension Coronary artery disease involving ottawa coronary artery of ottawa heart without angina pectoris Type 2 diabetes mellitus without complication, without long-term current use of insulin (HCC) Controlled type 2 diabetes mellitus without complication, without long-term current use of insulin (HCC) Procedures STRESS TEST TREADMILL Mildred Corral NP Phone: tel: fax: [address] [address] Referral ID Status Reason Start Date Expiration Date V isits Requested Visits Authorized [id number] Authorized 06/02/2025 11/29/2025 1 1 Reason for Visit * Reason Comments Diabetes Encounter Details Date Type Department Care Team (Late st Contact Info) Description 06/02/2025 8:40 AM EDT Office Visit [facility] [address] [place] [address] Mildred Corral NP [address] [place] [address] Primary hypertension (Primary Dx); Coronary artery disease involving ottawa coronary artery of ottawa heart without angina pectoris ; Type 2 diabetes mellitus without complication, without long-term current use of insulin (HCC); Class 1 obesity due to excess calories with serious comorbidity in adult, unspecified BMI; Cigarette nicotine dependence without complication; Rising PSA level; Hyperlipidemia, mixed ; Controlled type 2 diabetes mellitus without complication, without long-term current use of insulin (HCC); BPH with obstruction/lower urinary tract symptoms Social History Tobacco Use Types Packs/Day Years Used Date Smoking Tobacco: Every Day Cigarettes Smokeless Tobacco: Never Alcohol Use Standard Drinks/Week Comments Not Currently 0 (1 standard drink = 0.6 oz pur e alcohol) coffee: 2-3 cups Sex and Gender Information Value Date Recorded Sex Assigned at Not on file Legal Sex Male 11:07 PM EDT Gender Identity Not on file Sexual Orientation Not on file documented as of this encounter Last Filed Vital Signs Vital Sign Reading Time Taken Comments Blood Pressure 138/82 06/02/2025 8:38 AM EDT Pulse 91 06/02/2025 8:38 AM EDT Temperature 36.6 C (97.8 F) 06/02/2025 8:38 AM EDT Respiratory Rate 20 06/02/2025 8:38 AM EDT Oxygen Saturation 97% 06/02/2025 8:38 AM EDT Inhaled Oxygen Concentration - - Weight 105 kg (230 lb 6.4 oz) 06/02/2025 8:38 AM EDT Height - - Body Mass Index 32.13 12/04/2023 8:41 AM EST documented in this encounter Progress Notes * Mildred Corral NP - 06/02/2025 8:40 AM EDT Images from the original note were not included. Te Rene is a 70 y.o. male presents with chief complaint of Diabetes HPI: Diabetes He presents for his follow-up diabetic visit. He has type 2 diabetes mellitus. There are no hypoglycemic associated symptoms. Pertinent negatives for hypoglycemia include no dizziness, headaches, nervousness/anxiousness, seizures or tremors. There are no diabetic associated symptoms. Pertinent negatives for diabetes include no chest pain, no polydipsia and no polyuria. There are no hypoglycemic complications. Symptoms are stable. Pertinent negatives for diabetic complications include no heart disease, impotence, nephropathy, peripheral neuropathy or PVD. Risk factors for coronary artery disease include diabetes mellitus, dyslipidemia, hypertension, male sex, obesity, sedentary lifestyle andtobacco exposure. Current diabetic treatment includes oral agent (monotherapy). He is compliant with treatment all of the time. An MANDY inhibitor/angiotensin II receptor diana is being taken. Eye exam is current. Hypertension This is a chronic problem. The current episode started more than 1 year ago. The problem is unchanged. The problem is controlled. Pertinent negatives include no chest pain, headaches, orthopnea, palpitations, peripheral edema or shortness of breath. There are no associated agents to hypertension. Risk factors for coronary artery disease include dyslipidemia, family history, obesity, male gender, sedentary lifestyle and smoking/tobacco exposure. Past treatments include MANDY inhibitors. The current treatment provides significant improvement. There are no compliance problems. There is no history of CAD/NV, heart failure or PVD. SUBJECTIVE: MEDICATIONS: Current Outpatient Medications Medication Instructions [...] tablet, Daily tamsulosin (FLOMAX) 0.4 mg, Oral, Daily ALLERGIES: No Known Allergies REVIEW OF SYMPTOMS: Review of Systems Constitutional: Negative for activity change, appetite change and unexpected weight change. HENT: Negative for ear pain, nosebleeds, sneezing, trouble swallowing and voice change. Eyes: Negative for pain, discharge and visual disturbance. Respiratory: Negative for apnea, chest tightness, shortness of breath and wheezing. Cardiovascular: Negative for chest pain, palpitations, orthopnea and leg swelling. Gastrointestinal: Negative for abdominal distention, blood in stool, constipation and diarrhea. Genitourinary: Negative for decreased urine volume, difficulty urinating, dysuria, hematuria and impotence. Skin: Negative for color change. Neurological: Negative [...] History: Diagnosis Date CAD (coronary artery disease) 12/04/2023 Cigarette nicotine dependence without complication 12/04/2023 History of adenomatous polyp of colon 12/04/2023 Hyperlipidemia, mixed 12/04/2023 Hypertension 12/04/2023 Kidney stone on left side 12/04/2023 Lumbar radiculopathy Osteoarthritis of both hips, unspecified osteoarthritis type 12/04/2023 Pancreatitis (HHS-HCC) 12/04/2023 Tobacco user 12/04/2023 Type 2 diabetes mellitus (HCC) 12/04/2023 History reviewed. No pertinent surgical history. family history is not on file. OBJECTIVE: Visit Vitals BP 138/82 (BP Location: Left arm, Patient Position: Sitting, BP Cuff Size: Adult long) Pulse 91 Temp 97.8 ??F (Temporal) Resp 20 Wt 230 lb 6.4 oz SpO2 97% BMI 32.13 kg/m?? Smoking Status Every Day BSA 2.29 m?? Physical Exam Vitals and nursing note reviewed. [...] file. Problem List Items Addressed This Visit CAD (coronary artery disease) Calcifications noted on chest CT Current meds: asa, statin, mandy Strong family hx of CAD No active chest pain stress test: insurance denied the request for this while asymptomatic, does have very strong risk factors for CAD Relevant Orders Comprehensive metabolic panel STRESS TEST TREADMILL Type 2 diabetes mellitus without complications (HCC) Check blood sugars daily, notify if <70 or >200. Take medications (pills or insulin) as directed. Monitor for s/s of hypoglycemia (sweaty, dizziness, nausea, vomiting, or shakiness). Watch for increase in thirst, urination, or appetite. Inspect feet frequently monitoring for open wounds , andalso recommend yearly eye exam. Pt should attempt to remain as physically active as chronic conditions allow, as well as trying to follow a diet low in carbohydrates, and simple sugars. Current meds: asa, statin, mandy, metfromin A1c: 5.9% 06/02/25, 5.6% 12/02/24 Relevant Medications atorvastatin (Lipitor) 80 MG tablet metFORMIN XR (Glucophage-XR) 750 MG 24 hr tablet Other Relevant Orders POCT glycosylated hemoglobin (Hb A1C) docked device (Completed) Comprehensive metabolic panel Urinalysis with reflex microscopic (clean catch) Microalbumin / creatinine, urine ratio STRESS TEST TREADMILL Hyperlipidemia, mixed On statin therapy Check labs yearly, and prn dose changes Relevant Orders Comprehensive metabolic panel Lipid panel Cigarette nicotine dependence without complication The patient has been advised of the risks of continued smoking: stroke, NV, all forms of cancer, lung disease, and . Options for quitting smoking include: cold turkey, hypnosis, acupuncture, nicotine replacement meds(gum, lozenges, and patches), Buproprion, and Varenicline. At this time pt is encouraged to evaluate their goals for wanting to quit smoking, and reach out toprovider when ready to start this process Relevant Orders CBC and differential Urinalysis with reflex microscopic (clean catch) Rising PSA level Relevant Orders PSA, total and free Primary hypertension - Primary Please check blood pressure daily and record DASH diet Limit caffeine Take medication as directed Contact office if chest pain, pressure, dizziness, shortness of breath, swelling legs Recommend slow position changes Current med: lisinopril Relevant Medications lisinopril 10 MG tablet Other Relevant Orders Comprehensive metabolic panel Urinalysis with reflex microscopic (clean catch) Microalbumin / creatinine, urine ratio STRESS TEST TREADMILL Class 1 obesity due to excess calories with serious comorbidity in adult Discussed with patient their BMI (actual, verses recommended). We have also discussed lifestyle modifications: attempts to perform physical activity as chronic conditions allow, also to monitor dietary intake: increasing protein/fruits/veggies and lowering carb intake (unless contraindicated). Limit sodas, juices, and sugary drinks. BPH with obstruction/lower urinary tract symptoms Relevant Medications tamsulosin (Flomax) 0.4 MG 24 hr capsule Other Visit Diagnoses Controlled type 2 diabetes mellitus without complication, without long-term current use of insulin (HCC) Relevant Medications metFORMIN XR (Glucophage-XR) 750 MG 24 hr tablet Other Relevant Orders STRESS TEST TREADMILL * Mildred Corral NP - 06/02/2025 6:22 AM EDTAssociated Problem(s): Hyperlipidemia, mixed On statin therapy Check labs yearly, and prn dose changes * Mildred Corral NP - 06/02/2025 6:21 AM EDTAssociated Problem(s): Cigarette nicotine dependence without complication The patient has been advised of the risks of continued smoking: stroke, NV, all forms of cancer, lung disease, and . Options for quitting smoking include: cold turkey, hypnosis, acupuncture, nicotine replacement meds(gum, lozenges, and patches), Buproprion, and Varenicline. At this time pt is encouraged to evaluate their goals for wanting to quit smoking, and reach out toprovider when ready to start this process * Mildred Corral NP - 06/02/2025 6:21 AM EDTAssociated Problem(s): Class 1 obesity due to excess calories with serious comorbidity in adult Discussed with patient their BMI (actual, verses recommended). We have also discussed lifestyle modifications: attempts to perform physical activity as chronic conditions allow, also to monitor dietary intake: increasing protein/fruits/veggies and lowering carb intake (unless contraindicated). Limit sodas, juices, and sugary drinks. * Mildred Corral NP - 06/02/2025 6:20 AM EDTAssociated Problem(s): Type 2 diabetes mellitus without complications (HCC) Check blood sugars daily, notify if <70 or >200. Take medications (pills or insulin) as directed. Monitor for s/s of hypoglycemia (sweaty, dizziness, nausea, vomiting, or shakiness). Watch for increase in thirst, urination, or appetite. Inspect feet frequently monitoring for open wounds , andalso recommend yearly eye exam. Pt should attempt to remain as physically active as chronic conditions allow, as well as trying to follow a diet low in carbohydrates, and simple sugars. Current meds: asa, statin, mandy, metfromin A1c: 5.9% 06/02/25, 5.6% 12/02/24 * Mildred Corral NP - 06/02/2025 6:20 AM EDTAssociated Problem(s): CAD (coronary artery disease) Calcifications noted on chest CT Current meds: asa, statin, mandy Strong family hx of CAD No active chest pain stress test: insurance denied the request for this while asymptomatic, does have very strong risk factors for CAD * Mildred Corral NP - 06/02/2025 6:19 AM EDTAssociated Problem(s): Primary hypertension Please check blood pressure daily and record DASH diet Limit caffeine Take medication as directed Contact office if chest pain, pressure, dizziness, shortness of breath, swelling legs Recommend slow position changes Current med: lisinopril documented in this encounter Plan of Treatment Scheduled Orders Name Type Priority Associated Diagnoses Orde r Schedule CBC and differential Lab Routine Cigarette nicotine dependence without complication Expected: 06/02/2025 (Approximate), Expires: 06/02/2026 Comprehensive metabolic panel Lab Routine Primary hypertension Coronary artery disease involving [place] coronary artery of ottawa heart without angina pectoris Type 2 diabetes mellitus without complication, without long-term current use of insulin (HCC) Hyperlipidemia, mixed Expected: 06/02/2025 (Approximate), Expires: 06/02/2026 Lipid panel Lab Routine Hyperlipidemia, mixed Expected: 06/02/2025 (Approximate), Expires: 06/02/2026 Urinalysis with reflex microscopic (clean catch) Lab Routine Primary hypertension Type 2 diabetes mellitus without complication, without long-term current use of insulin (HCC) Cigarette nicotine dependence without complication Expected: 06/02/2025 (Approximate), Expires: 06/02/2026 Microalbumin / creatinine, urine ratio Lab Routine Primary hypertension Type 2 diabetes mellitus without complication, without long-term current use of insulin (HCC) Expected: 06/02/2025 (Approximate), Expires: 06/02/2026 PSA, total and free Lab Routine Rising PSA level Expected: 06/02/2025 (Approximate), Expires: 06/02/2026 STRESS TEST TREADMILL Imaging Routine Primary hypertension Coronary artery disease involving ottawa coronary artery of ottawa heart without angina pectoris Type 2 diabetes mellitus without complication, without long-term current use of insulin (HCC) Controlled type 2 diabetes mellitus without complication, without long-term current use of insulin (HCC) Expected: 06/02/2025 (Approximate), Expires: 06/02/2026 documented as of this encounter Procedures Procedure Name Priority Date/Time Associated Diagnosis Comments POCT GLYCOSYLATED HEMOGLOBIN (HGB A1C) Routine 06/02/2025 8:49 AM EDT Type 2 diabetes mellitus without complication, without long-term current use of insulin (HCC) documented in this encounter Results * (ABNORMAL) POCT glycosylated hemoglobin (Hb A1C) docked device (06/02/2025 8:49 AM EDT) Hemoglobin A1C 5.9 Blood Venous blood specimen / Unknown 06/02/2025 8:49 AM EDT Mildred Corral NP POINT OF CARE TEST ENTER/EDIT O RDERABLES Final Result documented in this encounter Visit Diagnoses Diagnosis Primary hypertension- Primary Unspecified essential hypertension Coronary artery disease involving ottawa coronary artery of ottawa heart without angina pectoris Type 2 diabetes mellitus without complication, without long-term current use of insulin (HCC) Class 1 obesity due to excess calories with serious comorbidity in adult, unspecified BMI Cigarette nicotine dependence without complication Rising PSA level Hyperlipidemia, mixed Mixed hyperlipidemia Controlled type 2 diabetes mellitus without complication, without long-term current use of insulin (HCC) BPH with obstruction/lower urinary tract symptoms documented in this encounter Care Teams X Ray Technologist Relationship Specialty Start Date End Date Pavan Dailey MD PCP - General Family Medicine 11/06/23 Mildred Corral NP [address] [place] [address] PCP - Sudarshan Carrillo 01/07/25 documented as of this encounter
--- OUTSIDE RECORDS SUMMARY | 2025-06-14 07:18 | XMS_ITS | Encounter Summary ---
Author Organization [facility] Address [address] [place] [address] Care Team Providers Care Biomedical Scientist Name Role Phone Pavan Dailey MD Primary Care Provider [phone] Mildred Corral NP Unavailable [phone] Encounter Details Date Type Department Care Team (Late Contact Info) Description 03/25/2024 External Result Encounter [facility] External Department Unsolicited Mildred Corral NP [address] [place] [id number] Social History Tobacco Use Types Packs/Day Years [...] on file documented as of this encounter Plan of Treatment Not on file documented as of this encounter Procedures Procedure Name Priority Date/Time Associated Diagnosis Comments PET/CT SKULL BASE TO MID THIGH 03/25/2024 11:50 AM EDT documented in this encounter Results * PET/CT skull base to mid thigh (03/25/2024 11:50 AM EDT) Anatomical Region Laterality Modality Body Computed Tomogra phy 03/25/2024 11:5 0 AM EDT Impressions 03/25/2024 12:00 PM EDT No abnormal activity is seen within the chest. CT follow-up is recommended of the patient's lung nodules. Abnormal activity is seen involving the prostate gland. Correlation with PSA level and prostate MRI is suggested. Impression dictated by: Galen Wadsworth Jr., D.ODeshaun03/25/2024 11:58 AM Dictation Location: [place] [address] Transcribed By: [facility] 03/25/24 1158 Dictated By: Galen Wadsworth Jr, DO 03/25/24 1150 Signed By: <Electronically signed by Galen Wadsworth Jr, DO in OV> 03/25/24 1158 Narrative 03/25/2024 12:00 PM EDT [place] [address] Nuclear Medicine Report Signed Patient: Te Rene MR#: [id number] : 1955 Acct:[id number] Age/Sex: 68 / M ADM Date: 03/25/24 Loc: Room: Type: [facility] Attending Dr: Mildred Corral Copies to: Galen Wadsworth Jr, DO Lisa J Aichholz, NP-C Ordering Provider: NJ Starr Date of Service: [...] fluid. PET/PET tumor init tx strat sb-mt Procedure Note Radiology, Radiologist, MD - 03/25/2024 [place] [address] Nuclear Medicine Report Signed Patient: Te ReneMR#: [id number] : 3Acct:[id number] Age/Sex: 68 / MADM Date: 03/25/24 Loc: Room:Type: [facility] Attending Dr: Mildred Corral Copies to: Galen Wadsworth Jr, DO Lisa J Aichholz, NP-C Ordering Provider: NJ Starr Date of Service: 03/25/24 PET/PET tumor init tx strat sb-mt: Lung Nodule PET/CT FUSION IMAGING CLINICAL INFORMATION: Lung nodule COMPARISON : Outside low-dose CT 12/23/2023 TECHNIQUE: Noncontrasted CT scan from the base of the skull to the upperthigh followed by PET imaging. Multiplanar PET/CT fusion images. Blood Glucose : 1:30 mg/dL The F-18 FDG 14.3mCi. FINDINGS: Neck: No abnormal activity. Chest:No abnormal activity. No abnormal lung activity is seen. Abdomen/pelvis: No abnormal activity within the abdomen. Abnormal activityis seen within the prostate gland. SUV max of 3.4. Soft tissue/bones: No abnormal activity. CT findings: No pneumothorax. No pericardial or pleural effusions. No freeair or free fluid. PET/PET tumor init tx strat sb-mt IMPRESSION: No abnormal activity is seen within the chest. CT follow-up is recommendedof the patient's lung nodules. Abnormal activity is seen involving the prostate gland. Correlation withPSA level and prostate MRI is suggested. Impression dictated by: Galen Wadsworth Jr., D.O.03/25/2024 11:58 AM Dictation Location: [place] [address] Transcribed By: [facility] 03/25/24 1158 Dictated By: Galen Wadsworth Jr, DO 03/25/24 1150 Signed By: <Electronically signed by Galen Wadsworth Jr, DO inOV> 03/25/24 1158 us Mildred Corral NP IMG CT PROCEDURES Final Result documented in this encounter Visit Diagnoses Not on filedocumented in this encounter Care Teams Biomedical Scientist Relationship Specialty Start Date End Date [facility], MD PCP - General Family Medicine 11/06/23 Mildred Corral NP [address] [place] [address] PCP - Sudarshan [employer] 01/07/25 documented as of this encounter
--- OUTSIDE RECORDS SUMMARY | 2025-06-14 07:18 | XMS_ITS | Clinical Summary ---
Author Organization [facility] Address [address] [place] [address], [address] [place] [address] Care Team Providers Care Heat Treat Supervisor Name Role Phone Unavailable Primary Care Provider Unavailabl e Social History Tobacco Use Types Packs/Day Years Used Date Smoking Tobacco: Never Assessed Sex and Gender Information Value Date Recorded Sex Assigned at Not on file Legal Sex Male 6:51 PM EST Gender Identity Not on file Sexual Orientation Not on file Plan of Treatment Not on file
--- OUTSIDE RECORDS SUMMARY | 2025-06-14 07:18 | XMS_ITS | Encounter Summary ---
Author Organization [facility] Address [address] [place] [address] Care Team Providers Care Mamma Logist Name Role Phone Pavan Dailey MD Primary Care Provider [phone] Mildred Corral NP Unavailable [phone] Encounter Details Date Type Department Care Team (Late st Contact Info) Description 08/13/2024 Clinisync Result Encounter [facility] External Department Unsolicited Mildred Corral, CARLA [address] [place] [address] Social History Tobacco Use Types Packs/Day Years [...] Procedure Name Priority Date/Time Associated Diagnosis Comments CT CHEST WO CON 08/13/2024 7:07 AM EST documented in this encounter Results * CT CHEST WO CON (08/13/2024 7:07 AM EST) Anatomical Region Laterality Modality Other 08/13/2024 7:07 AM EST Narrative 08/13/2024 7:10 AM EST The [address] [address] [address] Scan Report Signed Patient: HAKEEM RENE MR#: [id number] : 1955 Acct:[id number] Age/Sex: 69 / M ADM Date: 08/12/24 Loc: CT Attending Dr: Mildred Corral NP Ordering Physician: Mildred Corral NP Date of Service: 08/12/24 Procedure(s): CT chest wo con Accession Number(s): [id number] cc: Mildred Corral NP [place] [address] Patient Name: HAKEEM RENE MRN: [id number] date: 1955 Sex: M Assigned Patient Location: CT Current Patient Location: Accession/Order Number: [id number] Exam Date: 08/12/2024 07:42 Report Date: 08/13/2024 07:07 At the request of: MILDRED CORRAL Procedure: CT chest wo con EXAMINATION: CT chest wo con HISTORY: Lung Nodule, Abnormal CT COMPARISON: 01/02/2024 TECHNIQUE: Multi-planar CT images were created with IV contrast. Axial, Coronal, and Sagittal images. Dose reduction techniques were achieved by using automated exposure control and/or adjustment of mA and/or kV according to patient size and/or use of iterative reconstruction technique. FINDINGS: LUNGS: There is been interval development of a 7.7 mm solid nodule in the left upper lobe with ill-defined margins axial image 55. There is a stable lobular nodule measuring 1.4 x 0.9 cm in the right lower lobe marginating the major fissure. Additional subcentimeter nodules appear stable PLEURA: No mass, effusion, or pneumothorax. VASCULATURE: No abnormality. AMADOR: No mass or adenopathy. MEDIASTINUM: No mass or adenopathy. CARDIAC: No enlargement or pericardial effusion Coronary arteries: Heavy calcifications AORTA: No aortic aneurysm. Moderate calcific atherosclerosis CHEST WALL: No mass or axillary adenopathy. BONES: No bone lesion or fracture. LIMITED ABDOMEN: No suspicious findings. Limited images of the upper abdomen. OTHER: Negative. CT/CT chest wo con IMPRESSION: New 7.7 mm left upper lobe nodule is indeterminate. This is at the lower limits of detectability for PET scan. Consider short interval follow-up in 3 months Stable 1.4 cm right lower lobe nodule Electronically authenticated by: YAIMA NOONAN Date: 08/13/2024 07:07 Dictated By: aYima Noonan M.D. Signed By: 08/13/24709 DD/ 6 TD/TT: Beauty Operator Apprentice: Procedure Note Radiology, Radiologist, - 08/13/2024 [place] [address] CT Scan Report Signed Patient: HAKEEM RENE EMR#: [id number] : 1955cct:[id number] Age/Sex: 69 / MADM Date: 08/12/24 Loc: CT Attending Dr: Mildred Corral NP Ordering Physician: Mildred Corral NP Date of Service: 08/12/24 Procedure(s): CT chest wo con Accession Number(s): [id number] cc: Mildred Corral NP The [place] [id number] Patient Name: HAKEEM RENE MRN: [id number] date: 1955 Sex: M Assigned Patient Location: CT Current Patient Location: Accession/Order Number: [id number] Exam Date: 08/12/2024 07:42 Report Date: 08/13/2024 07:07 At the request of: MILDRED CORRAL Procedure: CT chest wo con EXAMINATION: CT chest wo con HISTORY: Lung Nodule, Abnormal CT COMPARISON: 01/02/2024 TECHNIQUE: Multi-planar CT images were created with IV contrast. Axial, Coronal, and Sagittal images. Dose reduction techniques were achieved byusing automated exposure control and/or adjustment of mA and/or kV according to patient size and/or use of iterative reconstruction technique. FINDINGS: LUNGS: There is been interval development of a 7.7 mm solid nodule in theleft upper lobe with ill-defined margins axial image 55. There is a stablelobular nodule measuring 1.4 x 0.9 cm in the right lower lobe marginating themajor fissure. Additional subcentimeter nodules appear stable PLEURA: No mass, effusion, or pneumothorax. VASCULATURE: No abnormality. AMADOR: No mass or adenopathy. MEDIASTINUM: No mass or adenopathy. CARDIAC: No enlargement or pericardial effusion Coronary arteries: Heavy calcifications AORTA: No aortic aneurysm. Moderate calcific atherosclerosis CHEST WALL: No mass or axillary adenopathy. BONES: No bone lesion or fracture. LIMITED ABDOMEN: No suspicious findings. Limited images of the upperabdomen. OTHER: Negative. CT/CT chest wo con IMPRESSION: New 7.7 mm left upper lobe nodule is indeterminate. This is at the lower limits of detectability for PET scan. Consider short interval follow-up in 3months Stable 1.4 cm right lower lobe nodule Electronically authenticated by: YAIMA NOONAN Date: 08/13/2024 07:07 Dictated By: Yaima Noonan M.D. Signed By:08/13/24709 DD/ 6 TD/TT: Beauty Operator Apprentice: us Mildred Corral NP [facility] Final Result documented in this encounter Visit Diagnoses Not on filedocumented in this encounter Care Teams Mamma Logist Relationship Specialty Start Date End Date Pavan Dailey MD PCP - General Family Medicine 11/06/23 Mildred Corral NP [address] [place] [address] PCP - [place] [facility] 01/07/25 documented as of this encounter
--- OUTSIDE RECORDS SUMMARY | 2025-06-14 07:18 | XMS_ITS | Patient Health Record ---
Author Organization The [facility] [place] Address [address] [place] [address] Care Team Providers Care Gyroscope Technician Name Role Phone Mildred Corral CNP Primary Care Provider Unavail able Neris Zavala Unavailable [phone] Allergies No Known Allergies Results Component Value Reference Range Notes CT chest wo con Reviewed date:11/12/2024 07:27:33 AM Interpretation: Performing Lab: Notes/Report: Source Facility: [place] [address] CT Scan Report Signed Patient: HAKEEM RENE MR#: [id number] : 1955 Acct:[id number] Age/Sex: 69 / M ADM Date: 11/11/24 Loc: CT Attending Dr: Neris Zavala D.O. Ordering Physician: Neris Zavala D.O. Date of Service: 11/11/24 Procedure(s): CT chest wo con Accession Number(s): [id number] cc: Mildred Corral NP [place] [address] Patient Name: HAKEEM RENE MRN: [facility]:[id number] date: 1955 Sex: M Assigned Patient Location: CT Current Patient Location: CT Accession/Order Number: [id number] Exam Date: 11/11/2024 07:40 Report Date: 11/11/2024 [...] Signed By: 11/11/24 1641 DD/ 1639 TD/TT: Fishing Captain: [place] [address] CT Scan Report Signed Patient: SARA RENE MR#: [id number] : 1955 Acct:[id number] Age/Sex: 69 / M ADM Date: 11/11/24 Loc: CT Attending Dr: Neris Zavala D.O. Ordering Physician: Neris Zavala D.O. Date of Service: 11/11/24 Procedure(s): CT chest wo con Accession Number(s): [id number] cc: Mildred Corral NP [address] [address] Patient Name: HAKEEM RENE MRN: [id number] date: 1955 Sex: M Assigned Patient Location: CT Current Patient Location: CT Accession/Order Samantha er: [id number] Exam Date: 11/11/2024 07:40 Report Date: 11/11/2024 16:39 At the request of: NERIS ZAVALA Procedure: CT chest wo con EXAMINATION: CT chest wo con HISTORY: Multiple Pu lmonary Nodules R91.8 ; three-month follow-up COMPARISON: CT chest 08/12/2024 TECHNIQUE: Axial, Co doron, and Sagittal images were created without the administration of IV contrast material. Dose reduction techniques were achieved by using automated e xposure control and/or adjustment of mA and/or kV according to patient size and/ or use of iterative reconstruction technique. FINDINGS: LUNGS: Stable 1.4 x 0.9 x 0.4 cm soft tissue density adjacent the right minor fissure; nodule vers us pleural thickening. Interval clearing of the 7.7 mm nodule/infiltrate wi thin left upper lobe seen on prior study. PLEURA: No mass, eff usion, or pneumothorax. VASCULATURE: No abnormality. AMADOR: No mass or pat hologic adenopathy. MEDIASTINUM: No mass or pathologic adenopathy. CARDIAC: No enlargem ent, pericardial thickening, or pericardial effusion. Coronary Artery calc ifications: Coronary calcifications are moderate. AORTA: No aneurysm o r dissection. CHEST WALL: No mass or axillary adenopathy BONES: No bone lesio n or fracture. LIMITED ABDOMEN: No suspicious findings. Limited images of the upper abdomen. OTHER: Negative. C T/CT chest wo con IMPRESSION: 1. Interval clearing of the new 7.7 mm opacity seen on the prior study; most likely intermittent infiltrates. 2. Stable pleural th ickening versus nodule adjacent the right minor fissure. 3. Annual lung cance r screening is recommended. Electronically authe nticated by: HECTOR PHAN Date: 11/11/2024 16:39 Dictated By: Hector Phan M.D. Signed By: 11/11/24 1641 DD/ 1639 TD/TT: Fishing Captain: CT Chest w/o contrast Reviewed date:11/11/2024 04:51:38 PM Interpretation: Performing Lab: Notes/Report: Reason For Referral No Information Medications Medication SIG (Take, Route, Frequency, Duration) [...] AT BEDTIME Oral for 30 Days Active Aspirin 81 81 MG 1 tablet Orally Once a day Active Tamsulosin HCl 0.4 MG TAKE 1 CAPSULE BY MOUTH ONCE DAILY Oral for 30 Days Active Immunizations Vaccine Route Administration Date Status Comme nts SARS-COV-2 (COVID 19 Pfizer 30mcg/0.3mL), ray sucrose Unknown 01/24/2022 Administered Social History Tobacco Use: Social History Observation Description Date Details (start date - stop date) Current Smoker NA - NA Tobacco Control (Standard) Question Answer Notes Tobacco use: Current every day smoker Additional Findings: Tobacco user Heavy cigarett e smoker (20-39 cigs/day) Problems Problem Type SNOMED Code ICD Code Onset Dates Problem Status W/U Status Risk Notes Problem Centrilobular emphysema (77750631) Centrilobular emphysema (J43.2) Active confirmed Problem Mental disorder caused by drug (227369355) Cigarette nicotine dependence with nicotine-induced disorder (F17.219) Active confirmed Problem Multiple pulmonary nodules (055415808) Multiple pulmonary nodules (R91.8) Active confirmed Problem Paraseptal emphysema (22734209) Paraseptal emphysema (J43.8) Active confirmed Problem Elevated PSA (061051128) Elevated PSA (R97.20) Active confirmed Vital Signs Heart Rate 101 /min 11/26/2024 Temperature 96.4 degrees Fahrenheit 11/26/2024 Respiratory Rate 18 /min 11/26/2024 Blood pressure diastolic 76 mm Hg 11/26/2024 Oximetry 94 % 11/26/2024 Height 71 in 11/26/2024 Blood pressure systolic 154 mm Hg 11/26/2024 Weight 227.2 lbs 11/26/2024 BMI 31.68 kg/m2 11/26/2024 Encounters Encounter Location Date Provider Diagnosis [facility] [place] [address] [facility] [place] [address] 08/21/2024 [facility] [place] [address] [facility] [place] [address] 10/24/2024 [facility] [place] [address] [facility] [place] [address] 10/29/2024 [facility] [place] [address] [facility] [place] [address] 06/02/2025 [facility] [place] [address] [facility] [place] [address] 06/02/2025 [facility] [place] [address] [facility] [place] [address] 11/26/2024 [facility] Multiple pulmonary nodules R91.8 ; Centrilobular emphysema J43.2 ; Elevated PSA R97.20 ; Cigarette nicotine dependence with nicotine-induced disorder F17.219 and Encounter for screening for malignant neoplasm of respiratory organs Z12.2 [facility] [place] [address] [facility] [place] [address] 10/29/2024 Neris Zavala Multiple pulmonary nodules R91.8 ; Centrilobular emphysema [...] PFT. He is counseled on smoking cessation. 11/26/2024 Multiple pulmonary nodules (ICD-10 - R91.8) [...] appointment with Dr. Su later this month. 10/29/2024 Elevated PSA (ICD-10 - R97.20) PCPs notes state and increasing PSA. He also has mild FDG uptake in the prostate on PET 03/25/2024 with SUV 3.4. He has a visit scheduled with urology (Dr. Su) in the upcoming months. 10/29/2024 Cigarette nicotine dependence with nicotine-induced disorder (ICD-10 - F17.219) 11/26/2024 Cigarette nicotine dependence with nicotine-induced disorder [...] was counseled on smoking cessation/continued tobacco abstinence. 10/29/2024 Other ~2ppd x 49 years (2024) Patient was counseled on the importance of smoking cessation. No LDCT screening will continue to monitor the suspicious nodules. 11/26/2024 Other Plan Of Treatment No Information Insurance Providers Payer Name Payer Address Payer Phone Subscriber Number Group Number Insured Name Patient Relationship to Insured Coverage Start Date Coverage End Date [employer] [address] [place] [address] [id number] Hakeem Rene Self - patient is the insured Medical (General) History Medical History History ICD Code Cigarette nicotine dependence with nicot ine-induced disorder F17.219 Paraseptal emphysema J43.8 Multiple pulmonary nodules R91.8 Centrilobular emphysema J43.2 CAD (coronary artery disease) I25.10 DM2 (diabetes mellitus, type 2) E11.9 HTN (hypertension) I10 HLD (hyperlipidemia) E78.5 OA (osteoarthritis) M19.90 Lumbar radiculopathy M54.16 Nephrolithiasis N20.0 History of pancreatitis Z87.19 Personal history of colon polyps Z86.010 Elevated PSA R97.20
--- OUTSIDE RECORDS SUMMARY | 2025-06-14 07:18 | XMS_ITS | Encounter Summary ---
Author Organization [facility] Address [address] [place] [address] Care Team Providers Care Individual Pension Consultant Name Role Phone Pavan Dailey MD Primary Care Provider [phone] Mildred Corral NP Unavailable [phone] Encounter Details Date Type Department Care Team ([facility] Contact Info) Description 06/03/2024 Orders Only [facility] [address] [place] [address] Mildred Corral NP [address] [place] [address] Social History Tobacco Use Types Packs/Day Years [...] Procedure Name Priority Date/Time Associated Diagnosis Comments DIABETIC RETINOPATHY SCREENING - OU - BOTH EYES Routine 06/03/2024 2:56 PM EDT documented in this encounter Results * (ABNORMAL) Diabetic Retinopathy Screening - OU - Both Eyes (06/03/2024 2:56 PM EDT) Anatomical Region Laterality Modality Head Other us Mildred Corral NP OPHTH PHOTOGRAPHY Final Result documented in this encounter Visit Diagnoses Not on filedocumented in this encounter Care Teams Individual Pension Consultant Relationship Specialty Start Date End Date Pavan Dailey MD PCP - General Family Medicine 11/06/23 Mildred Corral NP [address] [place] [address] PCP - Sudarshan Carrillo 01/07/25 documented as of this encounter
--- OUTSIDE RECORDS SUMMARY | 2025-06-14 07:18 | XMS_ITS | Encounter Summary ---
Author Organization [facility] Address [address] [place] [address] Care Team Providers Care Used Building Materials Yard Worker Name Role Phone Pavan Dailey MD Primary Care Provider [phone] Mildred Corral NP Unavailable [phone] Encounter Details Date Type Department Care Team (Late st Contact Info) Description 12/25/2023 Clinisync Result Encounter [facility] External Department Unsolicited Mildred Corral, CARLA [address] [place] [address] Social History Tobacco Use Types Packs/Day Years [...] Name Priority Date/Time Associated Diagnosis Comments CT LUNG SCREENING LOW DOSE 12/25/2023 8:27 AM EDT documented in this encounter Results * CT LUNG SCREENING LOW DOSE (12/25/2023 8:27 AM EDT) Anatomical Region Laterality Modality Other 12/25/2023 8:27 AM EDT Narrative 12/25/2023 8:30 AM EDT The [address] [address] [address] Scan Report Signed Patient: HAKEEM RENE MR#: [id number] : 1955 Acct:[id number] Age/Sex: 68 / M ADM Date: 12/23/23 Loc: CT Attending Dr: Mildred Corral NP Ordering Physician: Mildred Corral NP Date of Service: 12/23/23 Procedure(s): CT lung screening low-dose Accession Number(s): [id number] cc: Mildred Corral NP [place] [id number] Patient Name: HAKEEM RENE MRN: [id number] date: 1955 Sex: M Assigned Patient Location: CT Current Patient Location: Accession/Order Number: [id number] Exam Date: 12/23/2023 07:58 Report Date: 12/25/2023 08:27 At the request of: MILDRED CORRAL Procedure: CT lung screening low-dose EXAMINATION: CT lung screening low-dose HISTORY: TABBACO USER COMPARISON: No relevant comparison available. TECHNIQUE: Axial, Coronal, and Sagittal images were created without the administration of IV contrast material. Dose reduction techniques were achieved by using automated exposure control and/or adjustment of mA and/or kV according to patient size and/or use of iterative reconstruction technique. FINDINGS: LUNGS: Mild paraseptal emphysema with an upper lobe predominance. Scattered pulmonary nodules the largest nodule measures 1.5 x 0.6 cm in the right lower lobe marginating the major fissure best seen on axial image #86. PLEURA: No mass, effusion, or pneumothorax. VASCULATURE: No abnormality. AMADOR: No mass or pathologic adenopathy. MEDIASTINUM: No mass or pathologic adenopathy. CARDIAC: No enlargement, pericardial thickening, or significant calcification. CORONARY ARTERIES: Coronary calcifications are moderate. AORTA: No aortic aneurysm. Moderate calcific atherosclerosis CHEST WALL: No mass or axillary adenopathy BONES: No bone lesion or fracture. LIMITED ABDOMEN: No suspicious findings. Limited images of the upper abdomen. OTHER: Negative. CT/CT lung screening low-dose IMPRESSION: Scattered pulmonary nodules the largest measuring 1.5 x 0.6 cm in right lower lobe. PET scan follow-up is recommended to evaluate metabolic status LUNG SCREENING: Lung-RADS Category 4A- Suspicious. Findings for which additional diagnostic testing and/ or tissue sampling is recommended. 3 month LDCT; PET/CT may be used when there is a >= 8 mm solid component. Electronically authenticated by: YAIMA NOONAN Date: 12/25/2023 08:27 Dictated By: Yaima Noonan M.D. Signed By: 12/25/23829 DD/ 6 TD/TT: Process Development Engineer: Procedure Note Radiology, Radiologist, MD - 12/25/2023 [place] [address] CT Scan Report Signed Patient: HAKEEM RENE EMR#: [id number] : 1955cct:[id number] Age/Sex: 68 / MADM Date: 12/23/23 Loc: CT Attending Dr: Milrded Corral NP Ordering Physician: Mildred Corral NP Date of Service: 12/23/23 Procedure(s): CT lung screening low-dose Accession Number(s): [id number] cc: Mildred Corral NP [place] [id number] Patient Name: HAKEEM RENE MRN: [facility]:[id number] date: 1955 Sex: M Assigned Patient Location: CT Current Patient Location: Accession/Order Number: [id number] Exam Date: 12/23/2023 07:58 Report Date: 12/25/2023 08:27 At the request of: MILDRED CORRAL Procedure: CT lung screening low-dose EXAMINATION: CT lung screening low-dose HISTORY: TABBACO USER COMPARISON: No relevant comparison available. TECHNIQUE: Axial, Coronal, and Sagittal images were created without the administration of IV contrast material. Dose reduction techniques were achieved by using automated exposure control and/or adjustment of mA and/or kV according to patient size and/or use of iterative reconstruction technique. FINDINGS: LUNGS: Mild paraseptal emphysema with an upper lobe predominance.Scattered pulmonary nodules the largest nodule measures 1.5 x 0.6 cm in the rightlower lobe marginating the major fissure best seen on axial image #86. PLEURA: No mass, effusion, or pneumothorax. VASCULATURE: No abnormality. AMADOR: No mass or pathologic adenopathy. MEDIASTINUM: No mass or pathologic adenopathy. CARDIAC: No enlargement, pericardial thickening, or significantcalcification. CORONARY ARTERIES: Coronary calcifications are moderate. AORTA: No aortic aneurysm. Moderate calcific atherosclerosis CHEST WALL: No mass or axillary adenopathy BONES: No bone lesion or fracture. LIMITED ABDOMEN: No suspicious findings. Limited images of the upperabdomen. OTHER: Negative. CT/CT lung screening low-dose IMPRESSION: Scattered pulmonary nodules the largest measuring 1.5 x 0.6 cm in rightlower lobe. PET scan follow-up is recommended to evaluate metabolic status LUNG SCREENING: Lung-RADS Category 4A- Suspicious. Findings for which additional diagnostic testing and/ or tissue sampling is recommended. 3month LDCT; PET/CT may be used when there is a >= 8 mm solid component. Electronically authenticated by: YAIMA NOONAN Date: 12/25/2023 08:27 Dictated By: Yaima Noonan M.D. Signed By:12/25/23829 DD/ 6 TD/TT: Process Development Engineer: us Mildred Corral NP [facility] Final Result documented in this encounter Visit Diagnoses Not on filedocumented in this encounter Care Teams Used Building Materials Yard Worker Relationship Specialty Start Date End Date Pavan Dailey MD PCP - General Family Medicine 11/06/23 Mildred Corral NP [address] [place] [address] PCP - [place] [facility] 01/07/25 documented as of this encounter
--- OUTSIDE RECORDS SUMMARY | 2025-06-14 07:18 | XMS_ITS | Encounter Summary ---
Author Organization [facility] Address [address] [place] [address] Care Team Providers Care Telecommunications Network Planner Name Role Phone Pavan Dailey MD Primary Care Provider [phone] Mildred Corral ARMOURED CAR ESCORT Unavailable [phone] Encounter Details Date Type Department Care Team ([facility] Contact Info) Description 04/22/2025 Abstract [facility] [address] [place] [address] Mildred Corral NP [address] [place] [address] Social History Tobacco Use Types Packs/Day Years [...] on file documented as of this encounter Visit Diagnoses Not on filedocumented in this encounter Care Teams Telecommunications Network Planner Relationship Specialty Start Date End Date Pavan Dailey MD PCP - General Family Medicine 11/06/23 Mildred Corral NP [address] [place] [address] PCP - [place] [facility] 01/07/25 documented as of this encounter
--- OUTSIDE RECORDS SUMMARY | 2025-06-14 07:18 | XMS_ITS | Encounter Summary ---
Author Organization [facility] Address [address] [place] [address] Care Team Providers Care Flight Line Mechanic Name Role Phone Pavan Dailey MD Primary Care Provider [phone] Mildred Corral RECREATION THERAPY AIDES TEACHER Unavailable [phone] Encounter Details Date Type Department Care Team ([facility] Contact Info) Description 05/07/2025 Abstract [facility] [address] [place] [address] Mildred Corral NP [address] [place] [address] Social History Tobacco Use Types Packs/Day Years [...] on filedocumented in this encounter Care Teams Flight Line Mechanic Relationship Specialty Start Date End Date Pavan Dailey MD PCP - General Family Medicine 11/06/23 Mildred Corral NP [address] [place] [address] PCP - [place] [facility] 01/07/25 documented as of this encounter
--- OUTSIDE RECORDS SUMMARY | 2025-06-14 07:18 | XMS_ITS | Encounter Summary ---
Author Organization [facility] Address [address], [address] [place] [address] Care Team Providers Care Casing Runner Name Role Phone Unavailable Primary Care Provider Unavailabl e Reason for Referral * Imaging (Routine) - Open Specialty Diagnoses / Procedures Referred By Contyasemin alejandre Referred To Contact Radiology Diagnoses Lung nodule Procedures PET CT SKULL BASE TO MID THIGH Galen Wadsworth Jr., DO [address] [address] Phone: tel: fax: Referral ID Status Reason Start Date Expiration Date Visits Re quested Visits Authorized [id number] Open 07/16/2024 07/16/2025 1 1 Encounter Details Date Type Department Care Team (Latest Contact Info) Description 07/16/2024 Transcribe Orders [place] Pre Access [address] [place] [address] Galen Wadsworth Jr., DO [address] [address] Lung nodule (Primary Dx) Social History Tobacco Use Types Packs/Day Years Used Date Smoking Tobacco: Never Assessed Sex and Gender Information Value Date Recorded Sex Assigned at Not on file Legal Sex Male 6:51 PM EST Gender Identity Not on file Sexual Orientation Not on file documented as of this encounter Plan of Treatment Scheduled Orders Name Type Priority Associated Diagnoses Orde r Schedule PET CT SKULL BASE TO MID THIGH Imaging Routine Lung nodule Expected: 07/16/2024, Expires: 07/16/2025 documented as of this encounter Visit Diagnoses Diagnosis Lung nodule- Primary Solitary pulmonary nodule documented in this encounter
--- OUTSIDE RECORDS SUMMARY | 2025-06-14 07:19 | XMS_ITS | Encounter Summary ---
Author Organization [facility] Address [address] [place] [address] Care Team Providers Care Interior Plant Caretaker Name Role Phone Pavan Dailey MD Primary Care Provider [phone] Mildred Corral EXECUTIVE CHAIRMAN Unavailable [phone] Encounter Details Date Type Department Care Team ([facility] Contact Info) Description 06/02/2025 Abstract [facility] [address] [place] [phone] Mildred Corral NP [address] [place] [address] Social History Tobacco Use Types Packs/Day Years [...] on filedocumented in this encounter Care Teams Interior Plant Caretaker Relationship Specialty Start Date End Date Pavan Dailey MD PCP - General Family Medicine 11/06/23 Mildred Corral NP [address] [place] [address] PCP - [place] [employer] 01/07/25 documented as of this encounter
--- OUTSIDE RECORDS SUMMARY | 2025-06-14 07:19 | XMS_ITS | Encounter Summary ---
Author Organization [facility] Address [address] [place] [address] Care Team Providers Care Child Attendant Name Role Phone Pavan Dailey MD Primary Care Provider [phone] Mildred Corral NP Unavailable [phone] Encounter Details Date Type Department Care Team ([facility] Contact Info) Description 06/02/2025 Bamboo flowsheet [facility] [address] [place] [phone] Mildred Corral NP [address] [place] [address] Social History Tobacco Use Types Packs/Day Years [...] on filedocumented in this encounter Care Teams Child Attendant Relationship Specialty Start Date End Date Pavan Dailey MD PCP - General Family Medicine 11/06/23 Mildred Corral NP [address] [place] [address] PCP - [place] [employer] 01/07/25 documented as of this encounter
--- OUTSIDE RECORDS SUMMARY | 2025-06-14 07:19 | XMS_ITS | Encounter Summary ---
Author Organization [facility] Address [address] [place] [address] Care Team Providers Care Milk Powder Grinder Name Role Phone Pavan Dailey MD Primary Care Provider [phone] Mildred Corral NP Unavailable [phone] Encounter Details Date Type Department Care Team ([facility] Contact Info) Description 12/13/2023 Abstract [facility] [address] [place] [phone] Mildred Corral NP [address] [place] [address] Social History Tobacco Use Types Packs/Day Years Used Date Smoking Tobacco: Every Day Cigarettes Smokeless Tobacco: Never Tobacco Cessation:Ready to Q uit: Not Asked; Counseling Given: Not Answered Alcohol Use Standard Drinks/Week Comments Not Currently [...] on filedocumented in this encounter Care Teams Milk Powder Grinder Relationship Specialty Start Date End Date Pavan Dailey MD PCP - General Family Medicine 11/06/23 Mildred Corral NP [address] [place] [address] PCP - [place] [employer] 01/07/25 documented as of this encounter
--- OUTSIDE RECORDS SUMMARY | 2025-06-14 07:19 | XMS_ITS | Encounter Summary ---
Author Organization [facility] Address [address], [address] [place] [address] Care Team Providers Care Criminal Defense Lawyer Name Role Phone Unavailable Primary Care Provider Unavailabl e Reason for Referral * Imaging (Routine) - Open Specialty Diagnoses / Procedures Referred By Han t Referred To Contact Radiology Diagnoses Lung nodule, multiple Procedures Low Dose Chest CT -Abnormal Lung Screen Follow up Mildred Corral APRN - NP [address] [place] [address] Phone: tel: fax: Referral ID Status Reason Start Date Expiration Date Visits Re quested Visits Authorized [id number] Open 07/15/2024 07/15/2025 1 1 Encounter Details Date Type Department Care Team (Late st Contact Info) Description 07/15/2024 Transcribe Orders [place]illo Pre Access [address] [place], [place] [id number] Mildred Corral APRN - NP [address] [place] [address] Lung nodule, multiple (Primary Dx) Social History Tobacco Use Types Packs/Day Years Used Date Smoking Tobacco: Never Assessed Sex and Gender Information Value Date Recorded Sex Assigned at Not on file Legal Sex Male 6:51 PM EST Gender Identity Not on file Sexual Orientation Not on file documented as of this encounter Plan of Treatment Scheduled Orders Name Type Priority Associated Diagnoses Orde r Schedule Low Dose Chest CT -Abnormal Lung Screen Follow up Imaging Routine Lung nodule, multiple Expected: 07/15/2024, Expires: 07/15/2025 documented as of this encounter Visit Diagnoses Diagnosis Lung nodule, multiple- Primary documented in this encounter
--- OUTSIDE RECORDS SUMMARY | 2025-06-14 07:19 | XMS_ITS | Clinical Summary ---
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 Manager Name Role Phone Pavan Dailey MD Primary Care Provider [phone] Mildred Corral NP Unavailable [phone] Allergies No known active allergies Medications Blood Glucose Monitoring Suppl (Accu-Chek Estela Plus) w/Device kit Active loperamide (Imodium A-D) 2 MG tablet Take 2 mg by mouth if needed for diarrhea Active Multiple Vitamins-Mineral s (Centrum Silver 50+Men) tablet Take 1 tablet by mouth Daily Active atorvastatin (Lipitor) 80 MG tabletIndication s:Type 2 diabetes mellitus without complication, without long-term current use of insulin (HCC) Take 1 tablet (80 mg) by mouth at bedtime 90 tablet 1 5 08/31/20 25 Active lisinopril 10 MG tabletIndication s:Primary hypertension Take 1 tablet (10 mg) by mouth Daily 90 tablet 1 5 08/31/20 25 Active metFORMIN XR (Glucophage-XR) 750 MG 24 hr tabletIndication s:Type 2 diabetes mellitus without complication, without long-term current use of insulin (HCC),Controlled type 2 diabetes mellitus without complication, without long-term current use of insulin (HCC) Take 1 tablet (750 mg) by mouth in the morning and 1 tablet (750 mg) in the evening. Take before meals. 180 tablet 5 08/31/20 25 Active tamsulosin (Flomax) 0.4 MG 24 hr capsuleIndicatio ns:BPH with obstruction/lowe r urinary tract symptoms Take 1 capsule (0.4 mg) by mouth Daily 90 capsule 5 08/31/20 Active atorvastatin (Lipitor) 80 MG tabletIndication s:Type 2 diabetes mellitus without complication, without long-term current use of insulin (HCC) Take 1 tablet (80 mg) by mouth at bedtime 90 tablet 1 5 06/02/20 Discontinu ed(Reorder ) lisinopril 10 MG tabletIndication s:Primary hypertension Take 1 tablet (10 mg) by mouth Daily 90 tablet 1 5 06/02/20 Discontinu ed(Reorder ) metFORMIN XR (Glucophage-XR) 750 MG 24 hr tabletIndication s:Type 2 diabetes mellitus without complication, without long-term current use of insulin (HCC),Controlled type 2 diabetes mellitus without complication, without long-term current use of insulin (HCC) Take 1 tablet (750 mg) by mouth in the morning and 1 tablet (750 mg) in the evening. Take before meals. 180 tablet 1 5 06/02/20 Discontinu ed(Reorder ) tamsulosin (Flomax) 0.4 MG 24 hr capsule Take 0.4 mg by mouth Daily 5 06/02/20 Discontinu ed(Reorder ) Active Problems Problem Noted Date Diagnosed Date BPH with obstruction/lower urinary tract symptom s 02/24/2025 Sciatica 02/11/2025 Degenerative lumbar disc 12/02/2024 Assessment & Plan (02/24/2025 9:01 AM EDT): Educated on suspected radiculopathy L2/L3 dermatome Feeling much better after steroids Will monitor at this time Educated on red flag sxs, if this occurs contact office Elevated PSA 12/02/2024 Assessment & Plan (12/02/2024 6:18 AM EST): Has been referred to urology Current meds: flomax Paraseptal emphysema 12/02/2024 Multiple pulmonary nodules 12/02/2024 Assessment & Plan (12/02/2024 6:15 AM EST): Follows with Dr Des Dewitt Arthritis 12/02/2024 Centrilobular emphysema 12/02/2024 Assessment & Plan (12/02/2024 6:15 AM EST): No current daily inhalers for treatment Does continue with smoking Class 1 obesity due to exces s calories with serious comorbidity in adult 12/02/2024 Assessment & Plan (06/02/2025 6:21 AM EDT): Discussed with patient their BMI (actual, verses recommended). We have also discussed lifestyle modifications: attempts to perform physical activity as chronic conditions allow, also to monitor dietary intake: increasing protein/fruits/veggies and lowering carb intake (unless contraindicated). Limit sodas, juices, and sugary drinks. Assessment & Plan (02/24/2025 6:55 AM EDT): Discussed with patient their BMI (actual, verses recommended). We have also discussed lifestyle modifications: attempts to perform physical activity as chronic conditions allow, also to monitor dietary intake: increasing protein/fruits/veggies and lowering carb intake (unless contraindicated). Limit sodas, juices, and sugary drinks. Assessment & Plan (12/02/2024 6:20 AM EST): Discussed with patient their BMI (actual, verses recommended). We have also discussed lifestyle modifications: attempts to perform physical activity as chronic conditions allow, also to monitor dietary intake: increasing protein/fruits/veggies and lowering carb intake (unless contraindicated). Limit sodas, juices, and sugary drinks. Family history of early CAD 12/02/2024 Primary hypertension 06/03/2024 Assessment & Plan (06/02/2025 6:19 AM EDT): Please check blood pressure daily and record DASH diet Limit caffeine Take medication as directed Contact office if chest pain, pressure, dizziness, shortness of breath, swelling legs Recommend slow position changes Current med: lisinopril Assessment & Plan (02/24/2025 6:55 AM EDT): Please check blood pressure daily and record DASH diet Limit caffeine Take medication as directed Contact office if chest pain, pressure, dizziness, shortness of breath, swelling legs Recommend slow position changes Current med: lisinopril Assessment & Plan (12/02/2024 6:17 AM EST): Please check blood pressure daily and record DASH diet Limit caffeine Take medication as directed Contact office if chest pain, pressure, dizziness, shortness of breath, swelling legs Recommend slow position changes Current med: lisinopril Assessment & Plan (06/03/2024 9:06 AM EDT): At goal, no changes in meds Rising PSA level 05/09/2024 Assessment & Plan (06/03/2024 9:09 AM EDT): Has a rising PSA, as well as [...] us know when He will do so Lung nodule, multiple 12/25/2023 Overview (03/25/2024): Low dose CT scan 12/25/23: scattered pulmonary nodules, largest nodule is 1.5X0.6cm RLL, PET scan is recommended PET scan 04/01: neg chest, prostate SUV 3.4 Squamous cell carcinoma of left hand 12/04/2023 CAD (coronary artery disease) 12/04/2023 Assessment & Plan (06/02/2025 6:20 AM EDT): Calcifications noted on chest CT Current meds: asa, statin, yadira Strong family hx of CAD No active chest pain stress test: insurance denied the request for this while asymptomatic, does have very strong risk factors for CAD Assessment & Plan (02/24/2025 9:08 AM EDT): Calcifications noted on chest CT Current meds: asa, statin, yadira Strong family hx of CAD No active chest pain Last appt ordered stress test: insurance denied the request for this I will want to appeal this, as this patient, while asymptomatic, does have very strong risk factors for CAD Assessment & Plan (12/02/2024 9:07 AM EST): Calcifications noted on chest CT Current meds: asa, statin, yadira Strong family hx of CAD No active chest pain Will order stress test Assessment & Plan (12/04/2023 9:14 AM EST): Discussed with pt the findings on lung CT, he states he went to have his stress test, he ate that morning, so they told him to reschedule, he declines wanting to reschedule has not chest pain or active heart symptoms Pancreatitis (HHS-HCC) 12/04/2023 History of adenomatous polyp of colon 12/04/2023 Assessment & Plan (12/04/2023 9:15 AM EST): Had colonoscopy in 2022 will obtain copy of this Kidney stone on left side 12/04/2023 Osteoarthritis of both hips, unspecified osteoarthritis type 12/04/2023 Type 2 diabetes mellitus without complications 0 12/04/2023 Assessment & Plan (06/02/2025 8:58 AM EDT): Check blood sugars daily, notify if <70 [...] and simple sugars. Current meds: asa, statin, yadira, metfromin A1c: 5.9% 06/02/25, 5.6% 12/02/24 Assessment & Plan (02/24/2025 6:56 AM EDT): Check blood sugars daily, notify if <70 [...] and simple sugars. Current meds: asa, statin, yadira, metfromin A1c: 5.6% 12/02/24 Assessment & Plan (12/02/2024 9:08 AM EST): Check blood sugars daily, notify if <70 [...] and simple sugars. Current meds: asa, statin, yadira, metfromin A1c: 5.6% 12/02/24 Assessment & Plan (06/03/2024 9:06 AM EDT): A1c in range UTD on eye exam No changes in medications Hyperlipidemia, mixed 12/04/2023 Assessment & Plan (06/02/2025 6:22 AM EDT): On statin therapy Check labs yearly, and prn dose changes Assessment & Plan (12/02/2024 6:19 AM EST): On statin therapy Check labs yearly, and prn dose changes Cigarette nicotine dependence without complicati on 12/04/2023 Assessment & Plan (06/02/2025 6:21 AM EDT): The patient has been advised of the risks of continued smoking: stroke, MO, all forms of cancer, lung disease, and . Options for quitting smoking include: cold turkey, hypnosis, acupuncture, nicotine replacement meds (gum, lozenges, and patches), Buproprion, and Varenicline. At this time pt is encouraged to evaluate their goals for wanting to quit smoking, and reach out to provider when ready to start this process Assessment & Plan (02/24/2025 6:56 AM EDT): The patient has been advised of the risks of continued smoking: stroke, MO, all forms of cancer, lung disease, and . Options for quitting smoking include: cold turkey, hypnosis, acupuncture, nicotine replacement meds (gum, lozenges, and patches), Buproprion, and Varenicline. At this time pt is encouraged to evaluate their goals for wanting to quit smoking, and reach out to provider when ready to start this process Assessment & Plan (12/02/2024 6:19 AM EST): The patient has been advised of the risks of continued smoking: stroke, MO, all forms of cancer, lung disease, and . Options for quitting smoking include: cold turkey, hypnosis, acupuncture, nicotine replacement meds (gum, lozenges, and patches), Buproprion, and Varenicline. At this time pt is encouraged to evaluate their goals for wanting to quit smoking, and reach out to provider when ready to start this process Assessment & Plan (06/03/2024 9:07 AM EDT): The patient has been advised of the risks of continued smoking: stroke, MO, all forms of cancer, lung disease, and . Options for quitting smoking include: cold turkey, hypnosis, acupuncture, nicotine replacement meds (gum, lozenges, and patches), Buproprion, and Varenicline. At this time pt is encouraged to evaluate their goals for wanting to quit smoking, and reach out to provider when ready to start this process Assessment & Plan (12/04/2023 9:14 AM EST): Patient meets requirements for low dose CT scan for lung cancer screening: age 55-80, patient is a current smoker or has quit in the last 15 years. Smoking history is > or equal to 30 pack-year. If needed the patient is able or willing to receive treatment. The patient is not currently exhibiting any s/s of lung cancer. We have discussed the benefits as well as harms of screening, follow up testing if needed, false positive rates. We have also discussed that this type of CT scan has less radiation exposure than a traditional lung CT scan. We have also discussed that it is important to follow with annual screening for this. The patient has also been counseled on the importance of smoking cessation. Prostate cancer screening 12/04/2023 Overview (05/09/2024): PSA 0.47 on 04/29/2023, 05/06/24 2.5 Colon cancer screening 12/04/2023 BMI 32.0-32.9,adult 12/04/2023 Resolved Problems Problem Noted Date Diagnosed Date Resolved Date BPH (benign prostatic hyperplasia) 12/02/2024 02/24/2025 Assessment & Plan (12/02/2024 9:08 AM EST): Continue with Urology Centrilobular emphysema 06/03/202411/10 Assessment & Plan (06/03/2024 6:49 AM EDT): Recommend to quit smoking Screening for prostate cancer 04/04/2024 12/02/2024 Hypertension 12/04/2023 06/03/2024 Assessment & Plan (12/04/2023 9:12 AM EST): Stable reading Check labs Fu in 6 months Tobacco user 12/04/2023 12/02/2024 Benign prostatic hyperplasia with weak urinary stream 12/04/2023 12/02/2024 Encounters Date Type Department Care Team Description 06/02/2025 8:40 AM EDT Office Visit [facility] [address] [place] [address] Mildred Corral NP Primary hypertension (Primary Dx); Coronary artery disease involving choctaw coronary artery of choctaw heart without angina pectoris ; Type 2 diabetes mellitus without complication, without long-term current use of insulin (HCC); Class 1 obesity due to excess calories with serious comorbidity in adult, unspecified BMI; Cigarette nicotine dependence without complication; Rising PSA level; Hyperlipidemia, mixed ; Controlled type 2 diabetes mellitus without complication, without long-term current use of insulin (HCC); BPH with obstruction/lower urinary tract symptoms 06/02/2025 Abstract [facility] [address] [place] [address] Mildred Corral, FINAL CIGAR AND BOX EXAMINER 06/02/2025 Bamboo flowsheet [facility] [address] [place] [address] Mildred Corral, FINAL CIGAR AND BOX EXAMINER 05/07/2025 Abstract [facility] [address] [place] [address] Mildred Corral, FINAL CIGAR AND BOX EXAMINER 04/22/2025 Abstract [facility] [address] [place] [address] Mildred Corral, FINAL CIGAR AND BOX EXAMINER 04/22/2025 Telephone [facility] [address] [place] [id number] Mildred Corral, FINAL CIGAR AND BOX EXAMINER from Last 3 Months Immunizations Immunization Administration Dates Next Due Pfizer Paredes Cap SARS-CoV-2 Vaccination 01/24/2022 Pfizer Purple Cap SARS-CoV-2 Vaccination 03/20/2021,03/15/2021,02/27/2021,2020 SARS-CoV-2, Unspecified 01/24/2022 Family History Medical History Relation Name Comments Melanoma Neg Hx Social History Tobacco Use Types Packs/Day Years [...] on file Sexual Orientation Not on file Last Filed Vital Signs Vital Sign Reading Time Taken Comments Blood Pressure 138/82 06/02/2025 8:38 AM EDT Pulse 91 06/02/2025 8:38 AM EDT Temperature 36.6 C (97.8 F) 06/02/2025 8:38 AM EDT Respiratory Rate 20 06/02/2025 8:38 AM EDT Oxygen Saturation 97% 06/02/2025 8:38 AM EDT Inhaled Oxygen Concentration - - Weight 105 kg (230 lb 6.4 oz) 06/02/2025 8:38 AM EDT Height 180.3 cm (5' 11 ) 12/04/2023 8:41 AM EST Body Mass Index 32.13 12/04/2023 8:41 AM EST Plan of Treatment Health Maintenance Due Date Last Done Comments CT Colonography 1953 FIT-DNA 1953 FIT 1953 FOBT 1955 Sigmoidoscopy 1955 Diabetes: Urine Protein Screening 05/06/2025 024, 04/29/2023 Diabetes: Hemoglobin A1C 12/03/2025 025, 12/02/2024, 05/06/2024, Additional history exists Diabetes: Retinopathy Screening 06/03/2026 , 05/23/2023 Colonoscopy 12/02/2027 12/02/2022, 12/02/2022 Colorectal Cancer Screening 12/02/2027 Pneumococcal Vaccine: 65+ Years Completed 7 Influenza Vaccine Discontinued Procedures Procedure Name Priority Date/Time Associated Diagnosis Comments POCT GLYCOSYLATED HEMOGLOBIN (HGB A1C) Routine 06/02/2025 8:49 AM EDT Type 2 diabetes mellitus without complication, without long-term current use of insulin (HCC) DIABETIC RETINOPATHY SCREENING - OU - BOTH EYES Routine 06/03/2024 2:56 PM EDT from Last 3 Months or Most Recently Relevant to Health Maintenance Results * (ABNORMAL) POCT glycosylated hemoglobin (Hb A1C) docked device (06/02/2025 8:49 AM EDT) Hemoglobin A1C 5.9 Blood Venous blood specimen / Unknown 06/02/2025 8:49 AM EDT Mildred Corral NP POINT OF CARE TEST ENTER/EDIT O RDERABLES Final Result * (ABNORMAL) Diabetic Retinopathy Screening - OU - Both Eyes (06/03/2024 2:56 PM EDT) Anatomical Region Laterality Modality Head Other Mildred Corral NP OPHTH PHOTOGRAPHY Final Result from Last 3 Months or Most Recently Relevant to Health Maintenance Insurance [employer] Care Teams Aircraft Maintenance Manager Relationship Specialty Start Date End Date Pavan Dailey MD PCP - General Family Medicine 11/06/23 Mildred Corral NP [address] [place] [address] PCP - [place] [employer] 01/07/25
--- OUTSIDE RECORDS SUMMARY | 2025-06-14 07:19 | XMS_ITS | CCD ---
Author Organization [facility] Care Team Providers Care Front Desk Attendant Name Role Phone MILDRED CORRAL Primary Care Physician [phone] AICHHOLZ, SKIDDER LOADER MILDRED Admitting Unavailable AICHHOLZ, SKIDDER LOADER MILDRED Attending Unavailable AICHHOLZ, SKIDDER LOADER MILDRED Primary Care Unavailable AICHHOLZ, SKIDDER LOADER MILDRED Consulting Unavailable AICHHOLZ, SKIDDER LOADER MILDRED Admitting Unavailable AICHHOLZ, SKIDDER LOADER MILDRED Attending Unavailable AICHHOLZ, SKIDDER LOADER MILDRED Primary Care Unavailable AICHHOLZ, SKIDDER LOADER MILDRED Consulting Unavailable PATRICK VAZQUEZ Consulting Unavailable AICHHOLZ, SKIDDER LOADER MILDRED Admitting Unavailable AICHHOLZ, SKIDDER LOADER MILDRED Attending Unavailable AICHHOLZ, SKIDDER LOADER MILDRED Primary Care Unavailable SU ., DR BALDERRAMA Admitting Unavailable SU ., DR BALDERRAMA Attending Unavailable AICHHOLZ, SKIDDER LOADER MILDRED Primary Care Unavailable SU ., DR BALDERRAMA Consulting Unavailable SAAB, MARSHA Consulting Unavailable SU ., DR BALDERRAMA Admitting Unavailable SU ., DR BALEDRRAMA Attending Unavailable AICHHOLZ, SKIDDER LOADER MILDRED Primary Care Unavailable SU ., DR BALDERRAMA Consulting Unavailable JACKSON, DR YAIMA Hughes Consulting Unavailable LAURA NEGRON Consulting Unavailable TAMLYN ., SARTHAK Admitting Unavailable TAMLYN ., SARTHAK Attending Unavailable AICHHOLZ, SKIDDER LOADER MILDRED Primary Care Unavailable TAMLYN ., SARTHAK Consulting Unavailable OFELIA BOONE Consulting Unavailable CARIDAD MILLER Consulting Unavailable Mildred Corral Primary Care Provider Mildred Corral Attending Provider [phone] Pavan Dailey MD Primary Care Provider Mildred Corral Primary Care Provider DANIEL Carpio Attending Provider Moni Carpio Admitting Unavailable Moni Carpio Attending Unavailable Mildred Corral Primary Care Unavailable Mildred Corral Attending Unavailable Mildred Corral J Primary Care Unavailable Mildred Corral J Admitting Unavailable PRASHANT CORTES Attending Unavailable PRASHANT CORTES Attending Unavailable Moni Carpio X Attending Unavailable PRASHANT CORTES Attending Unavailable Shayna AGUIRRE, Mildred Unavailable AICHERMAN MILDRED Attending Unavailable AICHHOLZ, MILDRED Attending Unavailable GERSONHHOLHeydi, MILDRED Attending Unavailable SHAYNA, MILDRED Attending Unavailable Medications Current Medications Medication Drug Class(es) Dates Sig (Normalized) Sig (Original) aspirin 81 mg delayed release oral tablet (13 sources) Platelet Aggregation Inhibitor, Nonsteroidal Anti-inflammatory Drug Start: 12-02-2024 End: 03-02-2025 take 1 tablet by mouth once daily aspirin 81 MG EC tablet Indications: Type 2 diabetes mellitus without complications , Primary hypertension (CMS/HCC) Take 1 tablet (81 mg) by mouth Daily 90 tablet 1 12/02/2024 03/02/2025 Active Start: 01-17-2022 [...] Status: Ordered atorvastatin 80 mg oral tablet (20 sources) HMG-CoA Reductase Inhibitor Start: 01-17-2022 End: 08-31-2025 take 1 tablet by mouth at bedtime atorvastatin (Lipitor) 80 MG tablet Indications: Type 2 diabetes mellitus without complication, without long-term current use of insulin ([facility]) Take 1 tablet (80 mg) by mouth at bedtime 90 tablet 1 06/02/2025 08/31/2025 Active Blood Glucose Monitoring Suppl (Accu-Chek Estela Plus) w/Device kit (20 sources) Blood Glucose Monitoring Suppl (Accu-Chek Estela Plus) w/Device kit Active lisinopril 10 mg oral tablet (20 sources) Angiotensin Converting Enzyme Inhibitor Start: 01-17-2022 End: 08-31-2025 take 1 tablet by mouth once daily lisinopril 10 MG tablet Indications: Primary hypertension Take 1 tablet (10 mg) by mouth Daily 90 tablet 1 06/02/2025 08/31/2025 Active loperamide hydrochloride 2 mg oral tablet (20 sources) Opioid Agonist take 1 tablet by [...] hydrochloride 750 mg extended release oral tablet (20 sources) Biguanide Start: 05-09-2024 End: 08-31-2025 take 1 tablet by mouth every twenty-four hours in the morning metFORMIN XR (Glucophage-XR) 750 MG 24 hr tablet Indications: Type 2 diabetes mellitus without complication, without long-term current use of insulin (HCC) , Controlled type 2 diabetes mellitus without complication, without long-term current use of insulin (HCC) Take 1 tablet (750 mg) by mouth in the morning and 1 tablet (750 mg) in the evening. Take before meals. 180 tablet 06/02/2025 08/31/2025 Active Start: 01-17-2022 take 1 tablet by khai th twice daily metformin 750 mg ER Tab 750 mg, Oral, BID, Refills(s) 0, High blood sugar Start Date: 01/17/22 Status: Ordered methylPREDNISolone (3 sources) Corticosteroid Start: 02-11-2025 End: 02-24-2025 methylPREDNISolone (Medrol Dospak) 4 MG tablets Indications: Sciatica, unspecified laterality Follow schedule on package instructions 21 tablet 02/11/2025 02/24/2025 Discontinued (Therapy completed) Start: 02-11-2025 End: 02-18-2025 methylPREDNISolone (Medrol D ospak) 4 MG tablets Indications: Sciatica, unspecified laterality Follow schedule on package instructions 21 tablet 02/11/2025 02/18/2025 Active Multiple Vitamins-Minerals (Centrum Silver 50+Men) tablet (13 sources) take 1 tablet by mouth once daily Multiple Vitamins-Minerals (Centrum Silver 50+Men) tablet Take 1 tablet by mouth Daily Active tamsulosin hydrochloride 0.4 mg oral capsule (20 sources) alpha-Adrenergi c Diana Start: End: take 1 capsule by mouth once daily tamsulosin (Flomax) 0.4 MG 24 hr capsule Indications: BPH with obstruction/lower urinary tract symptoms Take 1 capsule (0.4 mg) by mouth Daily 90 capsule 06/02/2025 08/31/2025 Active Start: 12-02-2024 End: 03-02-2025 take 1 capsule by mouth every twenty-four hours in the evening tamsulosin (Flomax) 0.4 MG 24 hr capsule Indications: Benign prostatic hyperplasia, unspecified whether lower urinary tract symptoms present Take 1 capsule (0.4 mg) by mouth in the evening 90 capsule 1 12/02/2024 03/02/2025 Active Start: 02-12-2023 End: 12-02-2024 take 1 capsule by mouth once daily tamsulosin (Flomax) 0.4 MG 24 hr capsule Take 0.4 mg by mouth Daily 05/09/2024 12/02/2024 Discontinued (Reorder) Start: 01-17-2022 take 1 capsule by mo mih once daily tamsulosin 0.4 mg Cap 0.4 mg = 1 cap(s), Oral, Daily, # 30 cap(s), Refills(s) 8, Pharmacy: [facility], 180, cm, 01/17/22 9:28:00 EDT, Height/Length Dosing, 112, kg, 01/17/22 9:28:00 EDT, Weight Dosing Start Date: 01/17/22 Status: Ordered Problems Active Problems Problem Classification Problem Date Documented Da te Episodic/Chronic Chronic obstructive pulmonary disease and bronchiectasis (20 sources) Centriacinar emphysema; 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: [Centrilobular emphysema] Onset: 06-03-2024 Resolved: 12-02-2024 06-03-2024 Chronic Coronary atherosclerosis and other heart disease (20 sources) Coronary arteriosclerosis; 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: [Atherosclerotic heart disease of [place] coronary artery without angina pectoris] Onset: 12-04-2023 12-04-2023 Chronic Diabetes mellitus without complication (20 sources) Type 2 diabetes mellitus; 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: [Type 2 diabetes mellitus without complications] Onset: 11-05-2022 01-17-2022 Chronic Disorders of lipid metabolism (20 sources) Mixed hyperlipidemia; 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: [Mixed hyperlipidemia] Onset: 03-22-2022 01-17-2022 Chronic Essential hypertension (20 sources) Essential hypertension; 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: [Essential (primary) hypertension] Onset: 03-01-2022 Resolved: 06-03-2024 01-17-2022 Chronic Hyperplasia of prostate (20 sources) Weak urinary stream due to benign prostatic hypertrophy; 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: [Benign prostatic hyperplasia with lower urinary tract symptoms] Onset: 12-04-2023 Resolved: 02-24-2025 12-04-2023 Chronic Osteoarthritis (20 sources) Arthritis; 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: [Osteoarthritis of bilateral hip joints] Onset: 12-04-2023 02-24-2022 Chronic Other aftercare (1 source) [facility] (current) use of oral hypoglycemic drugs; 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: [ALF USE ORAL HYPOGLYCEMIC DX] Onset: 12-06-2022 Episodic Other and unspecified benign neoplasm (1 source) Personal history of colonic polyps; 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: [PERSONAL HISTORY OF COLONIC POLYPS] Onset: 12-06-2022 Episodic Other nutritional; endocrine; and metabolic disorders (20 sources) Body mass index 30+ - obesity; 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: [Body mass index (BMI) 32.0-32.9, adult] Onset: 12-04-2023 12-04-2023 Chronic Other nutritional; endocrine; and metabolic disorders (19 sources) Obesity caused by energy imbalance; 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: [Class 1 obesity due to excess calories with serious comorbidity in adult] Onset: 12-02-2024 12-02-2024 Chronic Other screening for suspected conditions (not mental disorders or infectious disease) (20 sources) Encounter for screening for malignant neoplasm of colon; 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: [Encounter for screening for malignant neoplasm of prostate] Onset: 03-22-2022 Resolved: 12-02-2024 Episodic Spondylosis; intervertebral disc disorders; other back problems (17 sources) Degeneration of lumbar intervertebral disc; 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: [...] source) [facility] (current) use of anticoagulants; 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: [PROFESSOR OF KINESIOLOGY CURRNT USE ANTICOAGULANTS] Onset: 03-01-2022 Episodic Other and unspecified benign neoplasm (20 sources) History of adenomatous polyp of colon; 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: [History of adenomatous polyp of colon] Onset: 12-04-2023 12-04-2023 Episodic Other lower respiratory disease (20 sources) Multiple nodules of lung; 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: [Other nonspecific abnormal finding of lung field] Onset: 12-25-2023 07-15-2024 Episodic Other lower respiratory disease (1 source) Other nonspecific abnormal finding of lung field; 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: [Other nonspecific abnormal finding of lung field] Onset: 03-25-2024 Episodic Other non-epithelial cancer of skin (20 sources) Squamous cell carcinoma of hand; 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: [Squamous cell carcinoma of skin of left upper limb, including shoulder] Onset: 12-04-2023 12-04-2023 Episodic Pancreatic disorders (not diabetes) (20 sources) Pancreatitis; 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: [Acute pancreatitis without necrosis or infection, unspecified] Onset: 12-04-2023 12-04-2023 Episodic Residual codes; unclassified (1 source) Procedure and treatment not carried out for other reasons; 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: [PROC AND TX NOT CARRIED OUT OTH REASONS] Onset: 03-01-2022 Episodic Residual codes; unclassified (20 sources) Tobacco user; 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: [Tobacco use] Onset: 12-04-2023 Resolved: 12-02-2024 12-04-2023 Episodic Residual codes; unclassified (18 sources) FH: premature coronary heart disease; 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: [Family history of ischemic heart disease and other diseases of the circulatory system] Onset: 12-02-2024 12-02-2024 Episodic Spondylosis; intervertebral disc disorders; other back problems (9 sources) Sciatica; 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: [Sciatica, unspecified side] Onset: 02-11-2025 02-11-2025 Episodic Results Test Name Value Interpretation Reference Range Facility HbA1c (Bld) [Mass fraction]o n 06-02-2025 Interpretation and review of laboratory results Abnormal [facility] - Hematology and Cell countson 06-02-2025 HbA1c (Bld) [Mass fraction] 5.9 % [facility] Ambulatory Visit Summaryon 0 12-16-2024 Ambulatory Visit Summary Ambulatory Visit Summary HAKEEM STARK :1955 Visit Date:12/16/2024 Ambulatory Visit Instructions Your Diagnosis Elevated PSA BPH with obstruction/lower urinary tract symptoms History of kidney stones Smoker Other obstructive and reflux uropathy Your Care Team Attending Physician - PRASHANT CORTES PA-C Primary Care Physician - MILDRED CORRAL CNP This Is Your Medications List tamsulosin (tamsulosin 0.4 mg Cap) Contact prescribing physician if questions or concerns aspirin (Aspirin 81 mg Tab-EC) atorvastatin (atorvastatin 80 mg Tab) lisinopril (lisinopril 10 mg Tab) metformin (metformin 750 mg ER Tab) Procedures Performed ESWL - Extracorporeal shockwave lithotripsy for renal calculus (02/24/2022), Colonoscopy. Discharge Vitals Temperature (Oral) 37 ???C Heart Rate (Peripheral) 85 Respiratory Rate 18 Blood Pressure 124/76 Height 180 cm Height 71 in Weight 104.1 kg Weight 229.501 lb BMI 32.13 What to do next Scheduled Follow-Up Appointments Monday2025 8:45 AM EDT With: Where: [facility] [address] [address]- Monday2025 8:20 AM EDT With: PRASHANT CORTES PA-C Where: [facility] [address] [id number] You Need to Schedule the Following Appointments Follow Up with PRASHANT CORTES PA-C, URL When: In 1 year Where: [address] [address] Medications What How Much When Instructions Changed tamsulosin (tamsulosin 0.4 mg Cap) 1 Capsules By Mouth Every day Duration: 90 Days Pickup at [facility] Unchanged aspirin (Aspirin 81 mg Tab-EC) 81 [...] physician if questions or concerns Pharmacy Information [facility]: [address] [place], [place] [id number] [phone] Allergies No Known Allergies Problems Ongoing - Any problem that you are currently receiving treatment for. BPH with obstruction/lower urinary tract symptoms Elevated PSA Essential hypertension History of kidney stones Mixed hyperlipidemia Smoker Type 2 diabetes mellitus Patient Survey You may receive a survey via text or e-mail asking about your office visit. Please share your experience with us by completing your survey. We appreciate your feedback and thank you for choosing us for your care. Education Materials Health Risks of Smoking Smoking tobacco is very bad for your health. Tobacco smoke contains many toxic chemicals that can damage every part of your body. Secondhand smoke can be harmful to those around you. Tobacco or nicotine use can cause many long-term (chronic) diseases. Smoking is difficult to quit because a chemical in tobacco, called nicotine, causes addiction or dependence. When you smoke and inhale, nicotine is absorbed quickly into your bloodstream through your lungs. Both inhaled and non-inhaled nicotine may be addictive. How can quitting affect me? There are health benefits of quitting smoking. Some benefits happen right away and others take time. Benefits may include: ??? Blood flow, blood pressure, heart rate, and lung capacity may begin to improve. However, any lung damage that has already occurred cannot be repaired. ??? Respiratory symptoms from smoking, such as nasal congestion and cough, may improve over time. ??? Your risk of heart disease, stroke, and cancer is reduced. ??? The overall quality of your health may improve. ??? You may save money, as you will not spend money on tobacco products and may spend less money on smoking-related health issues. What can increase my risk? Smoking harms nearly every organ in the body. People who smoke tobacco have a shorter life expectancy and an increased risk of many serious medical problems. These include: ??? More respiratory infections, such as colds and pneumonia. ??? Cancer. ??? Heart disease. ??? Stroke. ??? Chronic respiratory diseases. ??? Delayed wound healing and increased risk of complications during surgery. ??? Problems with reproduction, , and childbirth, such as infertility, early (premature) births, stillbirths, and defects. Secondhand smoke exposure to children increases the risk of: ??? Sudden syndrome (SIDS). ??? Infections in the nose, throat, or airways (respi (more content not included)... Normal [facility] Urology Office/Clinic Noteon 12-16-2024 Urology Office/Clinic Note Urology Office/Clinic Note Chief Complaint 1yr PSA HPI Staff 69yr old male pt here for 6mo f/u with PSA. MRI completed 07/29/24 showed no evidence of clinically significant prostate cancer. S/p left ESWL 02/24/22. Previous Dx: elevated PSA, BPH, kidney stone Continues taking tamsulosin 0.4mg qd PSA: 12/07/24 - 0.56 Review of Systems PHQ Score Initial Depression Screen Score: 0 SCORE no fever, chills, malaise, myalgia. no rash/lesions. no chest pain, palpitations, or SOB. no abdominal pain, nausea, vomiting. Physical Exam Vitals & Measurements T: 37 ???C(Oral) HR: 85(Peripheral) RR: 18 BP: 124/76 HT: 71 in HT: 180 cm WT: 104.1 kg WT: 229.501 lb BMI: 32.13 General: nontoxic, NAD Mouth: moist mucosa Lungs: normal respiratory effort Cardio: regular rate, good distal perfusion Abdomen: nondistended, no suprapubic distention or tenderness, no CVA tenderness Neurologic: Grossly normal Skin: No rashes or suspicious lesions ISRAEL: benign. no asymmetry, induration, nodules. Assessment/Plan 1. Elevated PSA (R97.20: Elevated prostate specific antigen [PSA]) PSA: 03/16/19 - 0.38 03/16/20 - 0.52 03/15/21 - 0.37 03/19/22 - 0.37 04/29/23 - 0.47 05/06/24 - 2.5 & 16.4%, MRI 07/29/24 neg 12/07/24 - 0.56 MRI 07/29/24 no suspicious lesions. ISRAEL neg. No fam hx prostate ca. Can go back to annual monitoring. Ordered: Body Mass Index (BMI) documented 3008F Current tobacco smoker 1034F Depression Screening Negative 3352F E&M of Est. Patient Moderate 30-39 Min 80322 Influenza immunization status assessed 1030F Medication list documented in medical record 1159F Most recent diastolic blood pressure <80 mm Hg 3078F Patient screen for fall risk: no falls in last year or 1 fall with no injury in last year 1101F Review of all meds by a prescribing practitioner or clinical pharmacist documented in EHR 1160F Systolic BP <130 mm Hg (Most Recent) 3074F Urnls Dip Stick Auto w/o Microscopy POC 59859 2. BPH with obstruction/lower urinary tract symptoms (N40.1: Benign prostatic hyperplasia with lower urinary tract symptoms) IPSS 6 OQL 1. Pt is taking tamsulosinand is highly satisfiedwith overall symptom control. Pt is experiencing noside effects. We discussed current dose and optional changes: increasing tamsulosin to BID adding an additional agent such as finasteride/dutaste ride discontinuing tamsulosin Pt prefers to continue current regimen with no changes at this time. Refills sent to [facility]. 3. History of kidney stones (Z87.442: Personal history of urinary calculi) s/p left ESWL 02/24/22 No recent flank pain, gross hematuria, or stone passage sx. No recent imaging. Offered to update KUB/CHERRIE. Pt declines. 4. Smoker (F17.200: Nicotine dependence, unspecified, uncomplicated) Cessation encouraged. Other obstructive and reflux uropathy (N13.8: Other obstructive and reflux uropathy) Orders: tamsulosin, 0.4 mg = 1 cap(s), Oral, Daily, X 90 day(s), # 90 cap(s), Refills(s) 3, Pharmacy: [facility], 180, cm, 12/16/24 10:57:00 EDT, Height/Length Dosing, 104.1, kg, 12/16/24 10:57:00 EDT, Weight Dosing Follow-up With When Contact Information SOPHIA DIEZ, PRASHANT Gonzalez, URL In 1 year [address] [place] [place] [address] Additional Instructions: Patient Education Health Risks of Smoking Problem List/Past Medical History Ongoing BPH with obstruction/lower urinary tract symptoms Elevated PSA Essential hypertension Mixed hyperlipidemia Smoker Type 2 diabetes mellitus Historical No qualifying data Procedure/Surgical History ESWL - Extracorporeal shockwave lithotripsy for renal calculus (02/24/2022), Colonoscopy. Medications Aspirin 81 mg Tab-EC, 81 mg, Oral, Daily atorvastatin 80 mg Tab, 80 mg, Oral, Daily lisinopril 10 mg Tab, 10 mg, Oral, Daily metformin 750 mg ER Tab, 750 mg, Oral, BID tamsulosin 0.4 mg Cap, 0.4 mg= 1 cap(s), Oral, Daily, 3 refills Allergies No Known Allergies Social History Alcohol Current. Beer. 1-2 times per week., 12/16/2024 Substance Abuse Never., 12/16/2024 Tobacco 10 or more cigarettes (1/2 pack or more)/day in last 30 days Tobacco Use:. Never Smokeless Tobacco Use:. Cigarettes, 12/16/2024 Smoker, current status unknown Tobacco Use:., 12/16/2024 Family History Cancer of colon: Brother. Diabetes mellitus type 2: Mother. Heart attack: Father. Heart disease: Mother. High cholesterol: Mother. Hypertension: Mother. Stroke: Father. Immunizations Vaccine Date Status SARSCoV2 mRNA(toespinoza-ray -sucros) vac 01/24/2022 Recorded SARS-CoV-2 (COVID-19) mRNA BNT-162b2 vax 03/20/2021 Recorded SARS-CoV-2 (COVID-19) mRNA BNT-162b2 vax 03/15/2021 Recorded SARS-CoV-2 (COVID-19) mRNA BNT-162b2 vax 02/27/2021 Recorded Lab Results Ambulatory Point of Care Results Bilirubin Urine Dipstick: Negative (12/16/24 10:50:00) Blood Urine Dipstick: Negative (12/16/24 10:50:00) Gluco (more content not included)... Normal [facility] Comment on above: Result Comment: Elec tronically Signed By: SOPHIA DIEZ, PRASHANT Gonzalez\.br\Date and Time Signed: 12/16/24 11:36 EDT MHPT PSA, DIAGNOSTICon 12-07 PROSTATE SPECIFIC ANTIGEN DX 0.56 ng/mL NINF - 4.00 ng/mL [facility] HbA1c (Bld) [Mass fraction]o n 12-02-2024 Interpretation and review of laboratory results Normal [facility] - Hematology and Cell countson 12-02-2024 HbA1c (Bld) [Mass fraction] 5.6 % [facility] Healthcare Provider Letteron 11-21-2024 Provider Letter Provider Letter November 21, 2024 HAKEEM STARK [address] [place] [id number] : 1955 Dear Hakeem, We have been trying to reach you with no success. You have an appointment with Dr. Tacos Su on December 16, 2024 which will need to be rescheduled since he will be out of the office that day. Please contact the office at the number listed below to get this appointment rescheduled at your earliest convenience. Thank you for your prompt attention to this matter. Sincerely, [facility] [facility] [place] [address] [facility] [address] CHEST WO CONon 11-11-2024 [place] [address] CT Scan Report Signed Patient: HAKEEM STARK MR#: [id number] : 1955 Acct:[id number] Age/Sex: 69 / M ADM Date: 11/11/24 Loc: CT Attending Dr: Neris Zavala D.O. Ordering Physician: Neris Zavala D.O. Date of Service: 11/11/24 Procedure(s): CT chest wo con Accession Number(s): [id number] cc: Mildred Corral NP [place] [id number] Patient Name: HAKEEM STARK MRN: [facility]:[id number] date: 1955 Sex: M Assigned Patient Location: CT Current Patient Location: CT Accession/Order Number: [id number] Exam Date: 11/11/2024 07:40 Report Date: 11/11/2024 [...] cancer screening is recommended. Electronically authenticated by: ARISTEO PHAN Date: 11/11/2024 16:39 Dictated By: Aristeo Phan M.D. Signed By: 11/11/24 1641 DD/ 1639 TD/TT: Pipeline Maintenance Supervisor: [facility] Radiology, Radiologist, - 11/11/2024 [place] [address] CT Scan Report Signed Patient: HAKEEM STARK MR#: [id number] : 1955 Acct:[id number] Age/Sex: 69 / M ADM Date: 11/11/24 Loc: CT Attending Dr: Neris Zavala D.O. Ordering Physician: Neris Zavala D.O. Date of Service: 11/11/24 Procedure(s): CT chest wo con Accession Number(s): [id number] cc: Mildred Corral NP [place] [id number] Patient Name: HAKEEM STARK MRN: [facility]:[id number] date: 1955 Sex: M Assigned Patient Location: CT Current Patient Location: CT Accession/Order Number: [id number] Exam Date: 11/11/2024 07:40 Report Date: 11/11/2024 [...] cancer screening is recommended. Electronically authenticated by: ARISTEO PHAN Date: 11/11/2024 16:39 Dictated By: Aristeo Phan M.D. Signed By: 11/11/24 1641 DD/ 1639 TD/TT: Pipeline Maintenance Supervisor: [facility] Radiology Study observation (narrative) [facility] CT CHEST WO CONOrdered By: Jerry adiologdinh Radiology on 11-11-2024 [facility] Work Phone: MR prostate wo conon 024 MR prostate wo con [facility] Main [place] [address] [place] [address] MRI Report Signed Patient: Hakeem Stark MR#: [id number] : 1955 Acct:[id number] Age/Sex: 69 / M ADM Date: 07/29/24 Loc: MR Room: Type: [facility] Attending Dr: Moni SANCHEZ Copies [...] Wadsworth Jr., D.O.07/31/2024 12:48 PM Dictation Location: RADIO-PC-15 Transcribed By: CELIA 07/31/24 1248 Dictated By: Galen Wadsworth Jr, DO 07/31/24 1231 Signed By: 07/31/24 1248 Normal [facility] ISTAT XRay CREon 07-29-2024 ISTAT GFR > 60.0 Normal [facility] Comment on above: Result Comment: PERF ORMED BY: [place] [address] PATHOLOGIST ENOLOGIST ONEYDA GUEVARA M.D. Performed By: #### I SCRE #### [facility] [address] [place] [address] No Panel InformationOrdered By: Moni Carpio on 07-29-2024 Bedside Estimated GFR (eGFR) > 60.0 [facility] Whole blood creatinine measu rementOrdered By: Moni Carpio on 07-29-2024 Creatinine [Mass/Vol] 1.0 mg/dL Normal 0.6-1.3 [facility] Comment on above: ER/ESD physician is notified/shown all ISTAT results.Critical values may be confirmed by laboratory testing ifdeemed necessary by ER attending doctor. Result Comment: ER/E SD physician is notified/shown all ISTAT results. Critical values may be confirmed by laboratory testing if deemed necessary by ER attending doctor. Performed By: #### I SCRE #### [facility] [address] [place] [address] Ambulatory Visit Summaryon 0 06-25-2024 Ambulatory Visit Summary Ambulatory Visit Summary HAKEEM STARK :1955 Visit Date:06/25/2024 Ambulatory Visit Instructions Your Diagnosis Elevated PSA BPH (benign prostatic hyperplasia) Kidney stone Tests Performed MRI Pelvis (Soft Tissue) w/ + w/o contrast -- Results Pending -- Please visit your patient portal for your results or contact your primary care physician. Your Care Team Attending Physician - Balaji RACHEL, SENG, Moni Ferguson Primary Care Physician - MILDRED [...] Schedule the Following Appointments Follow Up with Balaji GARCIAN, LOGISTICS CLERK-C, Moni X, FAM, URL When: Comments: pending MRI Where: [...] tract infectio (more content not included)... Normal [facility] Capillary blood glucose alex urement by glucometer (mass/volume)Ordered By: Mildred Corral on 03-25-2024 Glucose [Mass/Vol] 130 mg/dL Normal [facility] Comment on above: Random Glucose Refer ence Range is dependent on time and content of last meal. Glucose of more than 200 mg/dL in a nonstressed, ambulatory subject supports the diagnosis of Diabetes Mellitus. Result Comment: [place] Glucose Reference Range is dependent on time and content of last meal. Glucose of more than 200 mg/dL in a nonstressed, ambulatory subject supports the diagnosis of Diabetes Mellitus. PERFORMED BY: [facility] [address] [place] [address] PATHOLOGIST ENOLOGIST ONEYDA GUEVARA M.D. Performed By: #### G LU #### Point of Care testing , PET tumor init tx strat sb-m [place] 03-25-2024 PET tumor init tx strat sb-mt [facility] Main [place] [address] [place] [address] Nuclear Medicine Report Signed Patient: Hakeem Stark MR#: [id number] : 1955 Acct:[id number] Age/Sex: 68 / M ADM Date: 03/25/24 Loc: Room: Type: [facility] Attending Dr: Mildred Corral Copies to: Galen [...] Wadsworth Jr., D.O.03/25/2024 11:58 AM Dictation Location: [place] [address] Transcribed By: [facility] 03/25/24 1158 Dictated By: Galen Wadsworth Jr, DO 03/25/24 1150 Signed By: 03/25/24 1158 Normal [facility] Glucose Poct Glucometerson 0 03-18-2024 Glucose [Mass/Vol] 115 mg/dL Normal [facility] Comment on above: Result Comment: [facility] Glucose Reference Range is dependent on time and content of last meal. Glucose of more than 200 mg/dL in a nonstressed, ambulatory subject supports the diagnosis of Diabetes Mellitus. PERFORMED BY: [facility] [place] [address] PATHOLOGIST ENOLOGIST ONEYDA GUEVARA M.D. Performed By: #### G [...] Please consider referral for smoking cessation to [facility] Medication Therapy Management (MTM) if clinically [...] two extremes (Agatston score 101-1000). [email or web address]://pubs.rsna.o rg/doi/abs/10.1148/ [email or web address] Electronically authenticated by: PATRICK VAZQUEZ Date: 2022-11-05 20:06 Normal [facility] GLYCOHEMOGLOBIN A1Con 2022 ADA RECOMMENDATION SEE BELOW Normal [facility] Comment on above: Result Comment: ADA RECOMMENDED LIMIT 4.0 - 6.0 ADA THERAPEUTIC TARGET < 7.0 ACTION SUGGESTED > 7.0 Performed By: #### A 1C #### [facility] [address] [place] [address] Dr. Gigi To Glucose [Mass/Vol] 117 mg/dL Normal [facility] Comment on above: Performed By: #### A 1C #### [facility] [address] [address] [address] Gigi To HbA1c (Bld) [Mass fraction] 5.7 % Normal 4.5-6.2 [facility] Comment on above: Performed By: #### A 1C #### [facility] [address] [place] [address] Dr. Gigi To PROF CHEM 8 (BAS METB)on Anion gap [Moles/Vol] 16.1 mmol/L Normal [facility] Comment on above: Performed By: #### B MP #### [facility] [address] [place] [address] Dr. Gigi To Calcium [Mass/Vol] 9.4 mg/dL Normal 8.5-10.1 [facility] Comment on above: Performed By: #### B MP #### [facility] [address] [place] [address] Dr. Gigi To Chloride [Moles/Vol] 105 mmol/L Normal 98-107 [facility] Comment on above: Performed By: #### B MP #### [facility] [address] [address] [address] Gigi To CO2 [Moles/Vol] 25.8 mmol/L Normal 21.0-32.0 [facility] Comment on above: Performed By: #### B MP #### [facility] [address] [address] [address] Gigi To Creatinine [Mass/Vol] 1.02 mg/dL Normal 0.70-1.30 [facility] Comment on above: Performed By: #### B MP #### [facility] [address] [address] [address] Gigi To EGFR-AF PUERTO RICAN >60 Normal >=60 [facility] Comment on above: Performed By: #### B MP #### [facility] [address] [address] [address] Gigi To EGFR-NON AF PUERTO RICAN >60 Normal >=60 [facility] Comment on above: Performed By: #### B MP #### [facility] [address] [address] [address] Gigi To Glucose [Mass/Vol] 109 mg/dL Critically high 74-106 [facility] Comment on above: Performed By: #### B MP #### [facility] [address] [address] [address] Gigi To Potassium [Moles/Vol] 4.9 mmol/L Normal 3.5-5.1 [facility] Comment on above: Performed By: #### B MP #### [facility] [address] [address] [address] Gigi To Sodium [Moles/Vol] 142 mmol/L Normal 136-145 [facility] Comment on above: Performed By: #### B MP #### [facility] [address] [address] [address] Gigi To Urea nitrogen [Mass/Vol] 25.0 mg/dL Critically high 7.0-18.0 [facility] Comment on above: Performed By: #### B MP #### [facility] [address] [place] [address] Dr. Gigi To Urea nitrogen/Creatinine [Mass ratio] 24.5 mg/mg Normal [facility] Comment on above: Performed By: #### B MP #### [facility] [address] [place] [address] Dr. Gigi To CBC AUTO DIFFon 03-19-2022 BASO # 0.1 103/ul Normal 0.0-0.1 [facility] Comment on above: Performed By: #### C BC #### [facility] [address] [place] [address] Dr. Gigi To Basophils/100 WBC (Bld) 0.5 % Normal 0.2-2.0 [facility] Comment on above: Performed By: #### C BC #### [facility] [address] [place] [address] Dr. Gigi To EO # 0.3 103/ul Normal 0.0-0.7 [facility] Comment on above: Performed By: #### C BC #### [facility] [address] [place] [address] Dr. Gigi To Eosinophils/100 WBC (Bld) 2.7 % Normal 0.9-7.0 [facility] Comment on above: Performed By: #### C BC #### [facility] [address] [place] [address] Dr. Gigi To Erythrocyte distribution width (RBC) [Ratio] 14.0 % Normal 11.0-15.0 [facility] Comment on above: Performed By: #### C BC #### [facility] [address] [place] [address] Dr. Gigi To Hematocrit (Bld) [Volume fraction] 43.7 % Normal 42.0-54.0 [facility] Comment on above: Performed By: #### C BC #### [facility] [address] [place] [address] Dr. Gigi To Hemoglobin (Bld) [Mass/Vol] 14.4 g/dL Normal 14.0-18.0 [facility] Comment on above: Performed By: #### C BC #### [facility] [address] [place] [address] Dr. Gigi To IG # 0.03 10e3/ul Normal 0.00-0.03 [facility] Comment on above: Performed By: #### C BC #### [facility] [address] [place] [address] Dr. Gigi To IG % 0.3 % Normal 0.0-0.5 [facility] Comment on above: Performed By: #### C BC #### [facility] [address] [place] [address] Dr. Gigi To LYMPH # 2.9 103/ul Normal 1.2-3.8 [facility] Comment on above: Performed By: #### C BC #### [facility] [address] [place] [address] Dr. Gigi To Lymphocytes/100 WBC (Bld) 29.4 % Normal 20.5-60.0 [facility] Comment on above: Performed By: #### C BC #### [facility] [address] [place] [address] Dr. Gigi To MANUAL DIFF REQ NO Normal [facility] Comment on above: Performed By: #### C BC #### [facility] [address] [place] [address] Dr. Gigi To MCH (RBC) [Entitic mass] 32.2 pg Normal 25.9-34.0 [facility] Comment on above: Performed By: #### C BC #### [facility] [address] [place] [address] Dr. Gigi To MCHC (RBC) [Mass/Vol] 33.0 g/dL Normal 29.9-35.2 [facility] Comment on above: Performed By: #### C BC #### [facility] [address] [place] [address] Dr. Gigi To MCV (RBC) [Entitic vol] 97.8 fL Critically high 80.0-94.0 [facility] Comment on above: Performed By: #### C BC #### [facility] [address] [address] [address] Gigi To MONO # 0.8 103/ul Normal 0.3-0.8 [facility] Comment on above: Performed By: #### C BC #### [facility] [address] [address] [address] Gigi To Monocytes/100 WBC (Bld) 8.6 % Normal 1.7-12.0 [facility] Comment on above: Performed By: #### C BC #### [facility] [address] [place] [address] Dr. Gigi To NEUT # 5.7 103/ul Normal 1.4-6.5 [facility] Comment on above: Performed By: #### C BC #### [facility] [address] [place] [address] Dr. Gigi To Neutrophils/100 WBC (Bld) 58.5 % Normal 43.0-75.0 [facility] Comment on above: Performed By: #### C BC #### [facility] [address] [place] [address] Dr. Gigi To Platelet mean volume (Bld) [Entitic vol] 8.7 fL Critically low 9.5-13.5 [facility] Comment on above: Performed By: #### C BC #### [facility] [address] [place] [address] Dr. Gigi To PLT 280 103/ul Normal 150-450 [facility] Comment on above: Performed By: #### C BC #### [facility] [address] [place] [address] Dr. Gigi To RBC 4.47 106/ul Critically low 4.70-6.10 [facility] Comment on above: Performed By: #### C BC #### [facility] [address] [place] [address] Dr. Gigi To WBC 9.8 103/ul Normal 4.0-11.0 [facility] Comment on above: Performed By: #### C BC #### [facility] [address] [place] [address] Dr. iGgi To GLYCOHEMOGLOBIN A1Con 2021 ADA RECOMMENDATION SEE BELOW Normal [facility] Comment on above: Result Comment: ADA RECOMMENDED LIMIT 4.0 - 6.0 ADA THERAPEUTIC TARGET < 7.0 ACTION SUGGESTED > 7.0 Performed By: #### A 1C #### [facility] [address] [place] [address] Dr. Gigi To Glucose [Mass/Vol] 126 mg/dL Normal [facility] Comment on above: Performed By: #### A 1C #### [facility] [address] [address] [address] Gigi To HbA1c (Bld) [Mass fraction] 6.0 % Normal 4.5-6.2 [facility] Comment on above: Performed By: #### A 1C #### [facility] [address] [place] [address] Dr. Gigi To LIPID PROFILEon 03-19-2022 CHOL-HDL RATIO NORM SEE BELOW Normal [facility] Comment on above: Result Comment: 3.3 - 4.4 LOW RISK 4.4 - 7.1 AVERAGE RISK 7.1 - 11.0 MODERATE RISK >11.0 HIGH RISK Performed By: #### L IPID, CMP #### [facility] [address] [place] [address] Dr. Gigi To Cholesterol [Mass/Vol] 105 mg/dL Normal <=200 [facility] Comment on above: Performed By: #### L IPID, CMP #### [facility] [address] [place] [address] Dr. Gigi To Cholesterol in HDL [Mass/Vol] 29 mg/dL Critically low 40-60 [facility] Comment on above: Performed By: #### L IPID, CMP #### [facility] [address] [place] [address] Dr. Gigi To Cholesterol in LDL [Mass/Vol] 26.8 mg/dL Normal [facility] Comment on above: Performed By: #### L IPID, CMP #### [facility] [address] [place] [address] Dr. Gigi To Cholesterol.total/Chol esterol in HDL [Mass ratio] 3.6 {ratio} Normal [facility] Comment on above: Performed By: #### L IPID, CMP #### [facility] [address] [address] [address] Gigi To HDL NORMAL > or = 60 mg/dl - LOW CARDIOVASCULAR RISK <40 mg/dl - HIGH CARDIOVASCULAR RISK Normal [facility] Comment on above: Performed By: #### L IPID, CMP #### [facility] [address] [address] [address] Gigi To LDL CALC NORMAL SEE BELOW Normal [facility] Comment on above: Result Comment: <100 mg/dl OPTIMAL 100 - 129 mg/dl NEAR OR ABOVE OPTIMAL 130 - 159 mg/dl BORDERLINE HIGH 160 - 189 mg/dl HIGH >190 mg/dl VERY HIGH Performed By: #### L IPID, CMP #### [facility] [address] [address] [address] Gigi To Triglyceride [Mass/Vol] 246 mg/dL Critically high <=150 [facility] Comment on above: Performed By: #### L IPID, CMP #### [facility] [address] [address] [address] Gigi To VLDL CALC 49.2 mg/dL Normal [facility] Comment on above: Performed By: #### L IPID, CMP #### [facility] [address] [address] [address] Gigi To MICROALBUMIN, RAND URon - mALB 1.5 mg/L Normal <=30.0 [facility] Comment on above: Performed By: #### M ALBR #### [facility] [address] [address] [address] Gigi To PROF 14(COMP METB)on 022 Albumin [Mass/Vol] 3.9 g/dL Normal 3.4-5.0 [facility] Comment on above: Performed By: #### L IPID, CMP #### [facility] [address] [address] [address] Gigi To Albumin/Globulin [Mass ratio] 1.1 {ratio} Normal [facility] Comment on above: Performed By: #### L IPID, CMP #### [facility] [address] [place] [address] Dr. Gigi To ALP [Catalytic activity/Vol] 42 U/L Critically low 46-116 [facility] Comment on above: Performed By: #### L IPID, CMP #### [facility] [address] [place] [address] Dr. Gigi To ALT [Catalytic activity/Vol] 30 U/L Normal 16-63 [facility] Comment on above: Performed By: #### L IPID, CMP #### [facility] [address] [place] [address] Dr. Gigi To Anion gap [Moles/Vol] 14.5 mmol/L Normal [facility] Comment on above: Performed By: #### L IPID, CMP #### [facility] [address] [place] [address] Dr. Gigi To AST [Catalytic activity/Vol] 17 U/L Normal 15-37 [facility] Comment on above: Performed By: #### L IPID, CMP #### [facility] [address] [place] [address] Dr. Gigi To Bilirubin [Mass/Vol] 0.4 mg/dL Normal 0.2-1.0 [facility] Comment on above: Performed By: #### L IPID, CMP #### [facility] [address] [place] [address] Dr. Gigi To Calcium [Mass/Vol] 9.4 mg/dL Normal 8.5-10.1 [facility] Comment on above: Performed By: #### L IPID, CMP #### [facility] [address] [place] [address] Dr. Gigi To Chloride [Moles/Vol] 105 mmol/L Normal 98-107 [facility] Comment on above: Performed By: #### L IPID, CMP #### [facility] [address] [place] [address] Dr. Gigi To CO2 [Moles/Vol] 27.7 mmol/L Normal 21.0-32.0 [facility] Comment on above: Performed By: #### L IPID, CMP #### [facility] [address] [place] [address] Dr. Gigi To Creatinine [Mass/Vol] 1.00 mg/dL Normal 0.70-1.30 [facility] Comment on above: Performed By: #### L IPID, CMP #### [facility] [address] [address] [address] Gigi To EGFR-AF PUERTO RICAN >60 Normal >=60 [facility] Comment on above: Performed By: #### L IPID, CMP #### [facility] [address] [place] [address] Dr. Gigi To EGFR-NON AF PUERTO RICAN >60 Normal >=60 [facility] Comment on above: Performed By: #### L IPID, CMP #### [facility] [address] [place] [address] Dr. Gigi To Globulin (S) [Mass/Vol] 3.5 g/dL Normal [facility] Comment on above: Performed By: #### L IPID, CMP #### [facility] [address] [place] [address] Dr. Gigi To Glucose [Mass/Vol] 108 mg/dL Critically high 74-106 [facility] Comment on above: Performed By: #### L IPID, CMP #### [facility] [address] [place] [address] Dr. Gigi To Potassium [Moles/Vol] 4.2 mmol/L Normal 3.5-5.1 [facility] Comment on above: Performed By: #### L IPID, CMP #### [facility] [address] [place] [address] Dr. Gigi To Protein [Mass/Vol] 7.4 g/dL Normal 6.4-8.2 [facility] Comment on above: Performed By: #### L IPID, CMP #### [facility] [address] [place] [address] Dr. Gigi To Sodium [Moles/Vol] 143 mmol/L Normal 136-145 [facility] Comment on above: Performed By: #### L IPID, CMP #### [facility] [address] [address] [address] Gigi To Urea nitrogen [Mass/Vol] 21.0 mg/dL Critically high 7.0-18.0 [facility] Comment on above: Performed By: #### L IPID, CMP #### [facility] [address] [address] [address] Gigi To Urea nitrogen/Creatinine [Mass ratio] 21.0 mg/mg Normal [facility] Comment on above: Performed By: #### L IPID, CMP #### [facility] [address] [place] [address] Dr. Gigi To CHEMISTRYOrdered By: Lab ROP User on 02-24-2022 Glucose [Mass/Vol] 119 mg/dL High 55 - 99 mg/dL FTM C POC Subsection Comment on above: Result Comment: Isha priti Meter POC Device SN [id number] Invalid Interpretation Code [facility] [place] Subsection POC User ID [id number] Invalid Interpretation Code [facility] Subsection POC Username IQRA DODSON Invalid Interpretation Code [facility] [place] Subsection XR KUB 1 VIEWon 02-24-2022 [...] YAIMA NOONAN Date: 2022-02-24 07:22 Normal [facility] CBC AUTO DIFFon 02-21-2022 BASO # 0.1 103/ul Normal 0.0-0.1 [facility] Comment on above: Performed By: #### A 1C #### [facility] [address] [place] [address] Dr. Gigi To Basophils/100 WBC (Bld) 0.6 % Normal 0.2-2.0 [facility] Comment on above: Performed By: #### A 1C #### [facility] [address] [place] [address] Dr. Gigi To EO # 0.2 103/ul Normal 0.0-0.7 [facility] Comment on above: Performed By: #### A 1C #### [facility] [address] [place] [address] Dr. Gigi To Eosinophils/100 WBC (Bld) 1.9 % Normal 0.9-7.0 [facility] Comment on above: Performed By: #### A 1C #### [facility] [address] [place] [address] Dr. Gigi To Erythrocyte distribution width (RBC) [Ratio] 14.3 % Normal 11.0-15.0 [facility] Comment on above: Performed By: #### A 1C #### [facility] [address] [place] [address] Dr. Gigi To Hematocrit (Bld) [Volume fraction] 40.4 % Critically low 42.0-54.0 [facility] Comment on above: Performed By: #### A 1C #### [facility] [address] [place] [address] Dr. Gigi To Hemoglobin (Bld) [Mass/Vol] 13.4 g/dL Critically low 14.0-18.0 [facility] Comment on above: Performed By: #### A 1C #### [facility] [address] [place] [address] Dr. Gigi To IG # 0.02 10e3/ul Normal 0.00-0.03 [facility] Comment on above: Performed By: #### A 1C #### [facility] [address] [place] [address] Dr. Gigi To IG % 0.3 % Normal 0.0-0.5 [facility] Comment on above: Performed By: #### A 1C #### [facility] [address] [place] [address] Dr. Gigi To LYMPH # 2.4 103/ul Normal 1.2-3.8 [facility] Comment on above: Performed By: #### A 1C #### [facility] [address] [place] [address] Dr. Gigi To Lymphocytes/100 WBC (Bld) 30.7 % Normal 20.5-60.0 [facility] Comment on above: Performed By: #### A 1C #### [facility] [address] [place] [address] Dr. Gigi To MANUAL DIFF REQ NO Normal [facility] Comment on above: Performed By: #### A 1C #### [facility] [address] [place] [address] Dr. Gigi To MCH (RBC) [Entitic mass] 31.8 pg Normal 25.9-34.0 [facility] Comment on above: Performed By: #### A 1C #### [facility] [address] [place] [address] Dr. Gigi To MCHC (RBC) [Mass/Vol] 33.2 g/dL Normal 29.9-35.2 [facility] Comment on above: Performed By: #### A 1C #### [facility] [address] [place] [address] Dr. Gigi To MCV (RBC) [Entitic vol] 95.7 fL Critically high 80.0-94.0 [facility] Comment on above: Performed By: #### A 1C #### [facility] [address] [place] [address] Dr. Gigi To MONO # 0.8 103/ul Normal 0.3-0.8 [facility] Comment on above: Performed By: #### A 1C #### [facility] [address] [place] [address] Dr. Gigi To Monocytes/100 WBC (Bld) 10.0 % Normal 1.7-12.0 [facility] Comment on above: Performed By: #### A 1C #### [facility] [address] [place] [address] Dr. Gigi To NEUT # 4.4 103/ul Normal 1.4-6.5 [facility] Comment on above: Performed By: #### A 1C #### [facility] [address] [address] [address] Gigi To Neutrophils/100 WBC (Bld) 56.5 % Normal 43.0-75.0 [facility] Comment on above: Performed By: #### A 1C #### [facility] [address] [address] [address] Gigi To Platelet mean volume (Bld) [Entitic vol] 9.1 fL Critically low 9.5-13.5 [facility] Comment on above: Performed By: #### A 1C #### [facility] [address] [place] [address] Dr. Gigi To PLT 256 103/ul Normal 150-450 [facility] Comment on above: Performed By: #### A 1C #### [facility] [address] [place] [address] Dr. Gigi To RBC 4.22 106/ul Critically low 4.70-6.10 [facility] Comment on above: Performed By: #### A 1C #### [facility] [address] [address] [address] Gigi To WBC 7.8 103/ul Normal 4.0-11.0 [facility] Comment on above: Performed By: #### A 1C #### [facility] [address] [place] [address] Dr. Gigi To PROF CHEM 8 (BAS METB)on Anion gap [Moles/Vol] 13.6 mmol/L Normal [facility] Comment on above: Performed By: #### B MP #### [facility] [address] [address] [address] Gigi To Calcium [Mass/Vol] 9.2 mg/dL Normal 8.5-10.1 [facility] Comment on above: Performed By: #### B MP #### [facility] [address] [address] [address] Gigi To Chloride [Moles/Vol] 104 mmol/L Normal 98-107 [facility] Comment on above: Performed By: #### B MP #### [facility] [address] [address] [address] Gigi To CO2 [Moles/Vol] 26.9 mmol/L Normal 21.0-32.0 [facility] Comment on above: Performed By: #### B MP #### [facility] [address] [address] [address] Gigi To Creatinine [Mass/Vol] 0.95 mg/dL Normal 0.70-1.30 [facility] Comment on above: Performed By: #### B MP #### [facility] [address] [address] [address] Gigi To EGFR-AF PUERTO RICAN >60 Normal >=60 [facility] Comment on above: Performed By: #### B MP #### [facility] [address] [address] [address] Gigi To EGFR-NON AF PUERTO RICAN >60 Normal >=60 [facility] Comment on above: Performed By: #### B MP #### [facility] [address] [address] [address] Gigi To Glucose [Mass/Vol] 121 mg/dL Critically high 74-106 [facility] Comment on above: Performed By: #### B MP #### [facility] [address] [address] [address] Gigi To Potassium [Moles/Vol] 4.5 mmol/L Normal 3.5-5.1 [facility] Comment on above: Performed By: #### B MP #### [facility] [address] [address] [address] Gigi To Sodium [Moles/Vol] 140 mmol/L Normal 136-145 [facility] Comment on above: Performed By: #### B MP #### [facility] [address] [address] [address] Gigi To Urea nitrogen [Mass/Vol] 15.0 mg/dL Normal 7.0-18.0 [facility] Comment on above: Performed By: #### B MP #### [facility] [address] [place] [address] Dr. Gigi To Urea nitrogen/Creatinine [Mass ratio] 15.8 mg/mg Normal [facility] Comment on above: Performed By: #### B MP #### [facility] [address] [place] [address] Dr. Gigi To PROTIMEon 02-21-2022 INR Coag (PPP) [Relative time] 0.99 {INR} Normal [facility] Comment on above: Performed By: #### A 1C #### [facility] [address] [place] [address] Dr. Gigi To INR GUIDELINES SEE BELOW Normal [facility] Comment on above: Result Comment: ASHLEY RED INR: 2.0 - 3.0 CONDITIONS NOT LISTED BELOW 2.5 - 3.5 FOR PROSTHETIC HEART VALVE REPLACEMENT 2.5 - 3.5 RECURRENT THROMBOSIS Performed By: #### A 1C #### [facility] [address] [place] [address] Dr. Gigi To PT Coag (PPP) [Time] 10.7 s Normal 9.0-11.6 [facility] Comment on above: Performed By: #### A 1C #### [facility] [address] [place] [address] Dr. Gigi To PTTon 02-21-2022 aPTT Coag (Bld) [Time] 26.2 s Normal 22.3-36.2 Th [facility] Comment on above: Performed By: #### A 1C #### [facility] [address] [place] [address] Dr. Gigi To Vital Signs Date Time Vital Sign Value Performing Clinician Facility 06-02-2025 08:38-0400 Body mass index (BMI) [Ratio] 32.13 kg/m2 Mildred Corral CUSTOMER SERVICE CLERK Work Phone: [facility] 06-02-2025 08:38-0400 Body temperature 97.81 [degF] Mildred Corral CUSTOMER SERVICE CLERK Work Phone: [facility] 06-02-2025 08:38-0400 Body weight 104.51 kg Mildred Aichholz CUSTOMER SERVICE CLERK Work Phone: [facility] 06-02-2025 08:38-0400 Diastolic blood pressure 82 mm[Hg] Mildred Aichholz CUSTOMER SERVICE CLERK Work Phone: [facility] 06-02-2025 08:38-0400 Heart rate 91 /min Mildred Aichholz CUSTOMER SERVICE CLERK Work Phone: [facility] 06-02-2025 08:38-0400 Respiratory rate 20 /min Mildred Aichholz CUSTOMER SERVICE CLERK Work Phone: [facility] 06-02-2025 08:38-0400 SaO2% (BldA) [Mass fraction] 97 % Mildred Aichholz CUSTOMER SERVICE CLERK Work Phone: [facility] 06-02-2025 08:38-0400 Systolic blood pressure 138 mm[Hg] Mildred Aichholz CUSTOMER SERVICE CLERK Work Phone: [facility] 02-24-2025 08:38-0400 Body mass index (BMI) [Ratio] 31.52 kg/m2 Mildred Aichholz CUSTOMER SERVICE CLERK Work Phone: [facility] 02-24-2025 08:38-0400 Body temperature 97.81 [degF] Mildred Gersonhholz CUSTOMER SERVICE CLERK Work Phone: [facility] 02-24-2025 08:38-0400 Body weight 102.51 kg Mildred Gersonhholz CUSTOMER SERVICE CLERK Work Phone: [facility] 02-24-2025 08:38-0400 Diastolic blood pressure 76 mm[Hg] Mildred Aichholz CUSTOMER SERVICE CLERK Work Phone: [facility] 02-24-2025 08:38-0400 Heart rate 92 /min Mildred Aichholz CUSTOMER SERVICE CLERK Work Phone: [facility] 02-24-2025 08:38-0400 Respiratory rate 18 /min Mildred Aichholz CUSTOMER SERVICE CLERK Work Phone: [facility] 02-24-2025 08:38-0400 SaO2% (BldA) [Mass fraction] 98 % Mildred Corral CUSTOMER SERVICE CLERK Work Phone: [facility] 02-24-2025 08:38-0400 Systolic blood pressure 134 mm[Hg] Mildredjudd Paynez CUSTOMER SERVICE CLERK Work Phone: [facility] 12-02-2024 08:43-0500 Body mass index (BMI) [Ratio] 31.77 kg/m2 Mildredjudd Paynez CUSTOMER SERVICE CLERK Work Phone: [facility] 12-02-2024 08:43-0500 Body temperature 98.49 [degF] Mildred Elmerz CUSTOMER SERVICE CLERK Work Phone: [facility] 12-02-2024 08:43-0500 Body weight 103.33 kg Mildred Paynez CUSTOMER SERVICE CLERK Work Phone: [facility] 12-02-2024 08:43-0500 Diastolic blood pressure 78 mm[Hg] Mildred Paynez CUSTOMER SERVICE CLERK Work Phone: [facility] 12-02-2024 08:43-0500 Heart rate 101 /min Mildred Lolaholz CUSTOMER SERVICE CLERK Work Phone: [facility] 12-02-2024 08:43-0500 Respiratory rate 20 /min Mildredjudd Paynez CUSTOMER SERVICE CLERK Work Phone: [facility] 12-02-2024 08:43-0500 SaO2% (BldA) [Mass fraction] 95 % Mildredjudd Paynez CUSTOMER SERVICE CLERK Work Phone: [facility] 12-02-2024 08:43-0500 Systolic blood pressure 128 mm[Hg] Mildred Elmerz CUSTOMER SERVICE CLERK Work Phone: [facility] 06-03-2024 08:37-0400 Body mass index (BMI) [Ratio] 32.64 kg/m2 Mildredjudd Davilaholz CUSTOMER SERVICE CLERK Work Phone: [facility] 06-03-2024 08:37-0400 Body temperature 97.9 [degF] Mildred Lolaholz CUSTOMER SERVICE CLERK Work Phone: [facility] 06-03-2024 08:37-0400 Body weight 106.14 kg Mildred Gersonhholz CUSTOMER SERVICE CLERK Work Phone: [facility] 06-03-2024 08:37-0400 Diastolic blood pressure 80 mm[Hg] Mildred Aichholz CUSTOMER SERVICE CLERK Work Phone: [facility] 06-03-2024 08:37-0400 Heart rate 89 /min Mildred Aichholz CUSTOMER SERVICE CLERK Work Phone: [facility] 06-03-2024 08:37-0400 SaO2% (BldA) [Mass fraction] 95 % Mildred Aichholz CUSTOMER SERVICE CLERK Work Phone: [facility] 06-03-2024 08:37-0400 Systolic blood pressure 140 mm[Hg] Mildred Aichholz CUSTOMER SERVICE CLERK Work Phone: [facility] 03-25-2024 07:46-0400 Body height 180.34 cm Mildred Gersonhholz Work Phone: [facility] 03-25-2024 07:46-0400 Body weight 104.32 kg Mildred Gersonhholz Work Phone: [facility] 02-24-2022 17:16-0400 Blood Pressure Location [facility] 02-24-2022 17:16-0400 BP/Pulse Patient Position [facility] 02-24-2022 17:16-0400 Diastolic blood pressure 80 mm[Hg] [facility] 02-24-2022 17:16-0400 Heart rate 85 /min [facility] 02-24-2022 17:16-0400 Mean blood pressure 103 mm[Hg] [facility] 02-24-2022 17:16-0400 Respiratory rate 18 /min [facility] 02-24-2022 17:16-0400 SaO2% (BldA) [Mass fraction] 97 % [facility] 02-24-2022 17:16-0400 Systolic blood pressure 150 mm[Hg] [facility] 02-24-2022 16:20-0400 Blood Pressure Location [facility] 02-24-2022 16:20-0400 Diastolic blood pressure 90 mm[Hg] [facility] 02-24-2022 16:20-0400 Heart rate 84 /min [facility] 02-24-2022 16:20-0400 Respiratory rate 18 /min [facility] 02-24-2022 16:20-0400 SaO2% (BldA) [Mass fraction] 96 % [facility] 02-24-2022 16:20-0400 Systolic blood pressure 150 mm[Hg] [facility] 02-24-2022 16:13-0400 Body temperature 97.34 [degF] [facility] 02-24-2022 16:13-0400 Diastolic blood pressure 95 mm[Hg] [facility] 02-24-2022 16:13-0400 Heart rate 94 /min [facility] 02-24-2022 16:13-0400 Respiratory rate 15 /min [facility] 02-24-2022 16:13-0400 SaO2% (BldA) [Mass fraction] 95 % [facility] 02-24-2022 16:13-0400 Systolic blood pressure 154 mm[Hg] [facility] 02-24-2022 16:00-0400 Respiratory rate 24 /min [facility] 02-24-2022 15:55-0400 Respiratory rate 18 /min [facility] 02-24-2022 15:48-0400 Body temperature 97.16 [degF] [facility] 02-24-2022 15:45-0400 Respiratory rate 1 /min [facility] 02-24-2022 10:49-0400 Blood Pressure Location [facility] 02-24-2022 10:49-0400 Mean blood pressure 100 mm[Hg] [facility] 02-24-2022 10:47-0400 Body temperature 98.06 [degF] [facility] 02-24-2022 10:47-0400 Mean blood pressure 115 mm[Hg] [facility] 02-24-2022 10:47-0400 Heart rate 96 /min [facility] Encounters Encounter Date Encounter Type Care Provider Facility Start: 12-22-2025 ambulatory PRASHANT CORTES Facili ty:[facility] Start: 12-15-2025 ambulatory PRASHANT CORTES Facili ty:[facility] Start: 06-02-2025 End: 08-25-2025 Bamboo flowsheet Mildred Shayna CUSTOMER SERVICE CLERK Work Phone: [facility] Start: 06-02-2025 End: 06-02-2025 Bamboo flowsheet Mildred Shayna CUSTOMER SERVICE CLERK Work Phone: [facility] Start: 06-02-2025 End: 06-02-2025 Office outpatient visit 25 minutes Mildred Shayna CUSTOMER SERVICE CLERK Work Phone: [facility] Comment on above: Primary hypertension (Primary Dx); Coronary artery disease involving miami coronary artery 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 ; Type 2 diabetes mellitus without complication, without long-term current use of insulin (HCC); Class 1 obesity due to excess calories with serious comorbidity in adult, unspecified BMI; Cigarette nicotine dependence without complication; Rising PSA level; Hyperlipidemia, mixed ; Controlled type 2 diabetes mellitus without complication, without long-term current use of insulin (HCC); BPH with obstruction/lower urinary tract symptoms Start: 06-02-2025 End: 06-02-2025 ambulatory MILDRED SHAYNA Not Available Start: 04-22-2025 End: 04-22-2025 Telephone encounter Mildred Corral CUSTOMER SERVICE CLERK Work Phone: [facility] Start: 02-24-2025 End: 02-24-2025 Bamboo flowsheet Mildred Shayna CUSTOMER SERVICE CLERK Work Phone: [facility] Start: 02-24-2025 End: 02-24-2025 Bamboo flowsheet Mildred Shayna CUSTOMER SERVICE CLERK Work Phone: [facility] Start: 02-24-2025 End: 02-24-2025 Office outpatient visit 25 minutes Mildred Shayna CUSTOMER SERVICE CLERK Work Phone: [facility] Comment on above: Coronary artery dise ase involving miami coronary artery 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 (CMS/HCC) (Primary Dx); Primary hypertension (CMS/HCC); Class 1 obesity due to excess calories with serious comorbidity in adult, unspecified BMI; Family history of early CAD; Type 2 diabetes mellitus without complication, without long-term current use of insulin; Cigarette nicotine dependence without complication; Degeneration of intervertebral disc of lumbar region with lower extremity pain Start: 02-24-2025 End: 02-24-2025 ambulatory MILDRED LOLAHOLZ Not Available Start: 02-11-2025 End: 02-11-2025 Refill Mildred Lolaholz CUSTOMER SERVICE CLERK Work Phone: [facility] Comment on above: Sciatica, unspecifie d laterality (Primary Dx) Start: 12-16-2024 End: 12-16-2024 ambulatory PRASHANT CORTES Facility:[facility] Start: 12-07-2024 End: 12-07-2024 Clinisync Result Encounter Generic External Data Provider [facility] External Department Unsolicited Start: 12-07-2024 End: 12-07-2024 Clinisync Result Encounter Generic External Data Provider [facility] External Department Unsolicited Start: 12-02-2024 End: 12-02-2024 Bamboo flowsheet Mildred Elmerz CUSTOMER SERVICE CLERK Work Phone: [facility] Start: 12-02-2024 End: 12-02-2024 Bamboo flowsheet Mildred Aichholz CUSTOMER SERVICE CLERK Work Phone: [facility] Start: 12-02-2024 End: 12-02-2024 Office outpatient visit 25 minutes Mildred Shayna CUSTOMER SERVICE CLERK Work Phone: [facility] Comment on above: Type 2 diabetes rah itus without complication, without long- term current use of insulin (CMS/HCC) (Primary Dx); Type 2 diabetes mellitus without complications (CMS/HCC); Centrilobular emphysema (CMS/HCC); Multiple pulmonary nodules; Coronary artery disease involving miami coronary artery 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 (CMS/HCC); Primary hypertension [...] CAD Start: 12-02-2024 End: 12-02-2024 Refill Mildred Elmerz CUSTOMER SERVICE CLERK Work Phone: [facility] Comment on above: Type 2 diabetes rah itus without complications ([facility]); Primary hypertension ([facility]); Type 2 diabetes mellitus without complication, without long-term current use of insulin ([facility]); Controlled type 2 diabetes mellitus without complication, without long-term current use of insulin ([facility]); Benign prostatic hyperplasia, unspecified whether lower urinary tract symptoms present Start: 11-28-2024 End: 11-28-2024 Refill Pavan Dailey MD Work Phone: [facility] Comment on above: Primary hypertension ([facility]) Start: 11-11-2024 End: 11-11-2024 Clinisync Result Encounter Generic External Data Provider [facility] External Department Unsolicited Start: 11-11-2024 End: 11-11-2024 Clinisync Result Encounter Generic External Data Provider [facility] External Department Unsolicited Start: 08-19-2024 End: 08-19-2024 Orders Only Mildred Shayna CUSTOMER SERVICE CLERK Work Phone: [facility] Comment on above: Lung nodule, multipl e (Primary Dx) Start: 08-08-2024 End: 08-08-2024 Refill Mildred Elmerz CUSTOMER SERVICE CLERK Work Phone: [facility] Comment on above: Type 2 diabetes rah itus without complication, without long- term current use of insulin ([facility]) Start: 07-29-2024 End: 07-29-2024 Patient encounter procedure Mildred Corral Work Phone: [facility] [place] Work Phone: Start: 07-29-2024 End: 07-29-2024 ambulatory Mildredjudd Corral Work Phone: [facility] Work Phone: Start: 07-15-2024 End: 07-15-2024 Orders Only Mildred Shayna CUSTOMER SERVICE CLERK Work Phone: [facility] Comment on above: Lung nodule, multipl e (Primary Dx) Start: 06-25-2024 End: 06-25-2024 ambulatory Moni X Orzech Facility:[facility] Start: 06-25-2024 End: 06-25-2024 Patient encounter procedure Moni X Balaji [facility] Start: 06-03-2024 End: 06-03-2024 Bamboo flowsheet Mildred Corral CUSTOMER SERVICE CLERK Work Phone: [facility] Start: 06-03-2024 End: 06-03-2024 Bamboo flowsheet Mildred Corral CUSTOMER SERVICE CLERK Work Phone: [facility] Start: 06-03-2024 End: 06-03-2024 Office outpatient visit 25 minutes Mildred Corral CUSTOMER SERVICE CLERK Work Phone: [facility] Comment on above: Primary hypertension (CMS/HCC) (Primary Dx); Centrilobular emphysema (CMS/HCC); BMI 32.0-32.9,adult; Type 2 diabetes mellitus without complication, without long-term current use of insulin (CMS/HCC); Cigarette nicotine dependence without complication; Rising PSA level Start: 06-03-2024 End: 06-03-2024 ambulatory MILDRED SHAYNA Not Available Start: 03-25-2024 End: 03-25-2024 Patient encounter procedure Mildred Shayna Work Phone: [facility] Work Phone: Start: 03-25-2024 End: 03-25-2024 ambulatory Mildred J Shayna Work Phone: [facility] Work Phone: Start: 12-26-2022 ambulatory SKIDDER LOADER MILDRED CORRAL Facil ity:[facility] Start: 12-02-2022 End: 12-02-2022 ambulatory SARTHAK STEPHENS . Facility: Start: 11-05-2022 End: 11-06-2022 ambulatory PATTI CORRAL Facility:[facility] Start: 03-19-2022 End: 03-20-2022 ambulatory PATTI CORRAL Facility:[facility] Start: 02-25-2022 Encounter for other preprocedural examination DR TACOS SU . [facility] Start: 02-25-2022 Encounter for preprocedural cardiovascular examination DR TACOS SU . [facility] Start: 02-25-2022 Encounter for preprocedural laboratory examination DR TACOS SU . [facility] Start: 02-24-2022 End: 02-24-2022 Admission to same day surgery center [facility] Start: 02-24-2022 End: 02-24-[address] TACOS SU . Facility:[facility] Start: 02-21-2022 End: 02-22-[address] TACOS SU . Facility:[facility] Start: 02-21-2022 End: 02-22-2022 Encounter for preprocedural laboratory examination DR TACOS SU . Facility:[facility] Procedures Date Procedure Procedure Detail Performing Clinician Start: 06-02-2025 Hemoglobin glycosylated a1c Mildred Corral CUSTOMER SERVICE CLERK Work Phone: Start: 12-07-2024 MHPT PSA, DIAGNOSTIC Ge neric External Data Provider Start: 12-02-2024 Hemoglobin glycosylated a1c Mildred Shayna CUSTOMER SERVICE CLERK Work Phone: Start: 11-11-2024 CT CHEST WO CON Generic External Data Provider Start: 03-25-2024 Positron emission tomography with computed tomography Mildred Corral Work Phone: Start: 12-02-2022 Colonoscopy Mildred Angeline mejia CUSTOMER SERVICE CLERK Work Phone: Start: 03-19-2022 PSA screening PATTI CORRAL Comment on above: Performed By: #### P SAD #### [facility] [address] [place] [address] Dr. Gigi To Start: 02-24-2022 Extracorporeal shock wave lithotripsy of calculus of kidney [facility] Colonoscopy [facility] Plan of Treatment Date Care Activity Detail Author Start: 12-02-2027 Screening for malign ant neoplasm of colon [facility] Start: 06-03-2026 Glaucoma screening Diabetes: R etinopathy Screening [facility] Start: 12-03-2025 Hemoglobin A1c measurement Diabetes: Hemoglobin A1C [facility] Start: 06-02-2025 End: 06-02-2026 Cardiac stress study Procedure STRESS TEST TREADMILL Imaging Routine Primary hypertension Coronary artery disease involving miami coronary artery 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 Type 2 diabetes mellitus without complication, without long-term current use of insulin (HCC) Controlled type 2 diabetes mellitus without complication, without long-term current use of insulin ([facility]) Expected: 06/02/2025 (Approximate), Expires: 06/02/2026 [facility] Comment on above: Expected: 06/02/2025 (Approximate), Expires: 06/02/2026 Start: 06-02-2025 End: 06-02-2026 CBC W Auto Differential panel - Blood CBC and differential Lab Routine Cigarette nicotine dependence without complication Expected: 06/02/2025 (Approximate), Expires: 06/02/2026 [facility] Work Phone: Comment on above: Expected: 06/02/2025 (Approximate), Expires: 06/02/2026 Start: 06-02-2025 End: 06-02-2026 Comprehensive metabolic 2000 panel - Serum or Plasma Comprehensive metabolic panel Lab Routine Primary hypertension Coronary artery disease involving miami coronary artery 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 Type 2 diabetes mellitus without complication, without long-term current use of insulin (HCC) Hyperlipidemia, mixed Expected: 06/02/2025 (Approximate), Expires: 06/02/2026 [facility] Comment on above: Expected: 06/02/2025 (Approximate), Expires: 06/02/2026 Start: 06-02-2025 End: 06-02-2026 Lipid 1996 panel - Serum or Plasma Lipid panel Lab Routine Hyperlipidemia, mixed Expected: 06/02/2025 (Approximate), Expires: 06/02/2026 [facility] Comment on above: Expected: 06/02/2025 (Approximate), Expires: 06/02/2026 Start: 06-02-2025 End: 06-02-2026 Microalbumin/Creatinine panel in random Urine Microalbumin / creatinine, urine ratio Lab Routine Primary hypertension Type 2 diabetes mellitus without complication, without long-term current use of insulin (HCC) Expected: 06/02/2025 (Approximate), Expires: 06/02/2026 [facility] Comment on above: Expected: 06/02/2025 (Approximate), Expires: 06/02/2026 Start: 06-02-2025 End: 06-02-2026 PSA, total and free PSA, total and free Lab Routine Rising PSA level Expected: 06/02/2025 (Approximate), Expires: 06/02/2026 [facility] Comment on above: Expected: 06/02/2025 (Approximate), Expires: 06/02/2026 Start: 06-02-2025 End: 06-02-2026 Urinalysis complete panel - Urine Urinalysis with reflex microscopic (clean catch) Lab Routine Primary hypertension Type 2 diabetes mellitus without complication, without long-term current use of insulin (HCC) Cigarette nicotine dependence without complication Expected: 06/02/2025 (Approximate), Expires: 06/02/2026 [facility] Comment on above: Expected: 06/02/2025 (Approximate), Expires: 06/02/2026 Start: 06-02-2025 End: 06-02-2025 Patient encounter procedure [facility] Comment on above: Primary hypertension (Primary Dx); Coronary artery disease involving miami coronary artery 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 ; Type 2 diabetes mellitus without complication, without long-term current use of insulin (HCC); Class 1 obesity due to excess calories with serious comorbidity in adult, unspecified BMI; Cigarette nicotine dependence without complication; Rising PSA level; Hyperlipidemia, mixed Start: 06-01-2025 Hemoglobin A1c measurement Diabetes: Hemoglobin A1C [facility] Start: 05-23-2025 Glaucoma screening Diabetes: R etinopathy Screening [facility] Start: 05-06-2025 Urine screening for protein Diabetes: Urine Protein Screening [facility] Start: 02-24-2025 End: 02-24-2025 Patient encounter procedure [facility] Comment on above: Coronary artery dise ase involving miami coronary artery 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 (CMS/HCC) (Primary Dx); Primary hypertension (CMS/HCC); Class 1 obesity due to excess calories with serious comorbidity in adult, unspecified BMI; Family history of early CAD; Type 2 diabetes mellitus without complication, without long-term current use of insulin; Cigarette nicotine dependence without complication Start: 12-02-2024 End: 12-02-2026 NM Heart Perfusion W single state of exercise Stress test with myocardial perfusion Cardiac Nuclear Medicine Routine Coronary artery disease involving miami coronary artery 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 (CMS/HCC) Primary hypertension (CMS/HCC) Cigarette nicotine dependence without complication Hyperlipidemia, mixed (CMS/HCC) Family history of early CAD Expected: 12/02/2024 (Approximate), Expires: 12/02/2026 [facility] [employer] Work Phone: Comment on above: Expected: 12/02/2024 (Approximate), Expires: 12/02/2026 Start: 12-02-2024 End: 12-02-2024 Patient encounter procedure [facility] Comment on above: Multiple pulmonary n odules (Primary Dx); Type 2 diabetes mellitus without complications (CMS/HCC); Centrilobular emphysema (CMS/HCC); Coronary artery disease involving miami coronary artery 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 (CMS/HCC); Primary hypertension (CMS/HCC); Elevated PSA; Benign prostatic hyperplasia, unspecified whether lower urinary tract symptoms present; Cigarette nicotine dependence without complication; Hyperlipidemia, mixed (CMS/HCC); Class 1 obesity due to excess calories with serious comorbidity in adult, unspecified BMI Start: 11-06-2024 Hemoglobin A1c measurement Diabetes: Hemoglobin A1C [facility] Start: 07-29-2024 MR prostate wo con MR prostate wo co n [facility] Start: 07-29-2024 MR Prostate WO contrast [facility] Start: 07-15-2024 End: 07-15-2025 CT Chest for screening WO contrast Lung screening follow up CT chest wo IV contrast Imaging Routine Lung nodule, multiple Expected: 07/15/2024 (Approximate), Expires: 07/15/2025 [facility] [employer] Work Phone: Comment on above: Expected: 07/15/2024 (Approximate), Expires: 07/15/2025 Start: 06-03-2024 End: 06-03-2024 Patient encounter procedure 06/03/2024 8:40 AM EDT Office Visit [facility] [address] [place] [id number] Mildred Corral NP [address] [place] [address] Centrilobular emphysema (CMS/HCC) [facility] Comment on above: Centrilobular emphys susan (CMS/HCC) Start: 12-05-2023 Screening for malign ant neoplasm of colon [facility] Start: 1955 Screening for malign ant neoplasm of colon [facility] Healthcare Immunizations Immunization Date Immunization Notes Care Provider Fa cility 01-24-2022 Pfizer Paredes Cap SARS-CoV-2 Vaccination Mildred Corral CUSTOMER SERVICE CLERK Work Phone: [facility] 01-24-2022 SARS-CoV-2, Unspecified Mildred Corral CUSTOMER SERVICE CLERK Work Phone: [facility] 03-20-2021 Pfizer Purple Cap SARS-CoV-2 Vaccination Mildred Corral CUSTOMER SERVICE CLERK Work Phone: [facility] 03-15-2021 SARS-CoV-2 (COVID-19 ) mRNA BNT-162b2 vacony [facility] 02-27-2021 SARS-CoV-2 (COVID-19 ) mRNA BNT-162b2 alejandro [facility] Payers Date Payer Category Payer [facility] [id number] 2024 Unknown [id number] 2024 Unknown [id number] 2024 Self-pay 2024 Medicare [id number] 2021 Private Health Insurance [id number] 1959 Private Health Insurance [id number] 1953 Unknown [id number] [id number]. 2.593 1953 Unknown [id number] 2.16.840.1.545269.3.579. 2.593 1953 Unknown [id number] 2.16.840.1.169094.3.579. 2.593 1953 Unknown [id number] 2.16.840.1.938824.3.579. 2.593 1953 Unknown [id number] 2.16.840.1.301953.3.579. 2.593 1953 Unknown [id number] 2.16.840.1.476972.3.579. 2.593 1953 Unknown [id number] 2.16.840.1.434593.3.579. 2.727 1953 Unknown [id number] 2.16.840.1.294629.3.579. 2.727 1953 Unknown [id number] 2.16.840.1.553217.3.579. 2.727 1953 Unknown [id number] 2.16.840.1.779181.3.579. 2.727 1953 Unknown [id number] 2.16.840.1.338499.3.579. 2.1259 1953 Unknown [id number] 2.16.840.1.873513.3.579. 2.1259 1953 Unknown [id number] 2.16.840.1.690160.3.579. 2.1259 1953 Unknown [id number] 2.16.840.1.687855.3.579. 2.1259 Unknown [id number] 2.16.840.1.218715.3.579. 2.531 Unknown [id number] 2.16.840.1.371629.3.579. 2.531 Social History Date Type Detail Facility Tobacco Unknown if ever smoked [facility] Comment on above: 1 10/10 ppd cigarettes Start: 06-03-2024 End: 06-02-2025 Sex Assigned At Male [facility] Start: 1955 Sex Assigned At Male [facility] Start: 12-04-2023 End: 06-03-2024 Tobacco smoking status HIIS Smokes tobacco daily [facility] History of tobacco use Cigarette Smoker [facility] Start: 12-04-2023 End: 06-03-2024 Tobacco use and exposure Smokeless tobacco non-user [facility] Start: 06-03-2024 End: 06-02-2025 Alcoholic beverage intake Ex-drinker (finding) [facility] Start: 06-03-2024 End: 06-02-2025 History of Social function [facility] Start: 12-04-2023 Alcohol Comment coffee: 2-3 cups [facility] Start: 1955 Sex assigned at Not on file [facility] Tobacco smoking status No Smokin g Status Entered [facility] Functional Status Date Assessment Result Facility 06-25-2024 Functional Status N/A [facility] Clinical Notes 02-24-2022 to 06-02-2025 Mildred Corral NP - 06/02/2025 8:40 AM Jose Corral NP - 06/02/2025 6:22 AM MITCHELLRay Davilaclifton, CUSTOMER SERVICE CLERK - 06/02/2025 6:21 AM MITCHELLRay Daviladodieheydi, CARAL - 06/02/2025 6:21 AM EDTPatient Instructions Note Date & Type Note Facility 06-02-2025 History of Present illness Narrative Images from the original note were not included. Hakeem Stark is a 70 y.o. male presents with [...] dyslipidemia, hypertension, male sex, obesity, sedentary lifestyle and tobacco exposure. Current diabetic treatment includes oral agent (monotherapy). He is compliant with treatment all of the time. An YADIRA inhibitor/angiotensin II receptor diana is being taken. [...] lifestyle and smoking/tobacco exposure. Past treatments include YADIRA inhibitors. The current treatment provides significant improvement. There are no compliance problems. There is no history of CAD/SD, heart failure or PVD. SUBJECTIVE: MEDICATIONS: Current [...] Size: Adult long) Pulse 91 Temp 97.8 F (Temporal) Resp 20 Wt 230 lb 6.4 oz SpO2 97% BMI 32.13 kg/m Smoking Status Every Day BSA 2.29 m Physical Exam Vitals and nursing note [...] yadira, metfromin A1c: 5.9% 06/02/25, 5.6% 12/02/24 Relevant [...] of the risks of continued smoking: stroke, SD, all forms of cancer, lung disease, and [...] tablet Other Relevant Orders STRESS TEST TREADMILL Associated Problem(s): Hyperlipidemia, mixed On statin therapy Check labs yearly, and prn dose changes Associated Problem(s): Cigarette nicotine dependence without complication The patient has been advised of the risks of continued smoking: stroke, SD, all forms of cancer, lung disease, and . Options for quitting smoking include: cold turkey, hypnosis, acupuncture, nicotine replacement meds (gum, lozenges, and patches), Buproprion, and Varenicline. At this time pt is encouraged to evaluate their goals for wanting to quit smoking, and reach out to provider when ready to start this process Associated Problem(s): Class 1 obesity due to excess calories with serious comorbidity in adult Discussed with patient their BMI (actual, verses recommended). We have also discussed lifestyle modifications: attempts to perform physical activity as chronic conditions allow, also to monitor dietary intake: increasing protein/fruits/veggies and lowering carb intake (unless contraindicated). Limit sodas, juices, and sugary drinks. Associated Problem(s): Type 2 diabetes mellitus without [...] yadira, metfromin A1c: 5.9% 06/02/25, 5.6% 12/02/24 Associated Problem(s): CAD (coronary artery disease) Calcifications noted on chest CT Current meds: asa, statin, yadira Strong family hx of CAD No active chest pain stress test: insurance denied the request for this while asymptomatic, does have very strong risk factors for CAD Associated Problem(s): Primary hypertension Please check blood pressure daily and record DASH diet Limit caffeine Take medication as directed Contact office if chest pain, pressure, dizziness, shortness of breath, swelling legs Recommend slow position changes Current med: lisinopril documented in this encounter [facility] 04-22-2025 Telephone encounter Note Please let pt know that I did speak to [employer] on 04/17/25, they will not approve to combo stress test of treadmill and nuclear imaging, but they will approve a plain treadmill stress test, is he ok with doing this to start with? [place] [facility] 04-22-2025 Miscellaneous Notes Please let pt know that I did speak to [employer] on 04/17/25, they will not approve to combo stress test of treadmill and nuclear imaging, but they will approve a plain treadmill stress test, is he ok with doing this to start with? LA documented in this encounter [facility] 02-24-2025 History of Present illness Narrative Associated Problem(s): Degenerative lumbar disc Educated on suspected radiculopathy L2/L3 dermatome Feeling much better after steroids Will monitor at this time Educated on red flag sxs, if this occurs contact office Still having pain in left thigh (hip to knee) Images from the original note were not included. Hakeem Stark is a 69 y.o. male presents with chief complaint of Diabetes HPI: A few weeks ago called in with pain that he described as sciatica, he was placed on steroids, and is about 75-100% better Pain left thigh L2-L3 dermatome, no rash, no itching, no low back pain no cauda equina sxs Diabetes He presents for his follow-up diabetic visit. He has type 2 diabetes mellitus. His disease course has been stable. There are no hypoglycemic associated symptoms. Pertinent negatives for hypoglycemia include no dizziness, nervousness/anxiousness, seizures or tremors. Pertinent negatives for diabetes include no blurred vision, no chest pain, no polydipsia, no polyphagia and no polyuria. There are no hypoglycemic complications. Symptoms are stable. Pertinent negatives for diabetic complications include no nephropathy, peripheral neuropathy, PVD or retinopathy. Risk factors for coronary artery disease include diabetes mellitus, dyslipidemia, hypertension, male sex, sedentary lifestyle and tobacco exposure. Current diabetic treatment includes oral agent (monotherapy). He is compliant with treatment most of the time. An YADIRA inhibitor/angiotensin II receptor diana is being taken. He does not see a recreation assistant.Eye exam is current. Hypertension This is a chronic problem. The current episode started more than 1 year ago. The problem is unchanged. The problem is controlled. Pertinent negatives include no blurred vision, chest pain, palpitations, peripheral edema or shortness of breath. There are no associated agents to hypertension. Risk factors for coronary artery disease include diabetes mellitus, dyslipidemia, male gender, obesity, sedentary lifestyle and smoking/tobacco exposure. Past treatments include YADIRA inhibitors. The current treatment provides significant improvement. There are no compliance problems. There is no history of kidney disease, CAD/SD, PVD or retinopathy. SUBJECTIVE: MEDICATIONS: Current Outpatient Medications Medication Instructions [...] volume, difficulty urinating, dysuria and hematuria. Musculoskeletal: Positive for arthralgias. Skin: Negative for color change. Neurological: Negative [...] History: Diagnosis Date CAD (coronary artery disease) ([facility]) 12/04/2023 Cigarette nicotine dependence without complication 12/04/2023 History of adenomatous polyp of colon 12/04/2023 Hyperlipidemia, mixed ([facility]) 12/04/2023 Hypertension ([facility]) 12/04/2023 Kidney stone on left side 12/04/2023 Lumbar radiculopathy Osteoarthritis of both hips, unspecified osteoarthritis type 12/04/2023 Pancreatitis 12/04/2023 Tobacco user 12/04/2023 Type 2 diabetes mellitus 12/04/2023 History reviewed. No pertinent surgical history. family history is not on file. OBJECTIVE: Visit Vitals BP 134/76 (BP Location: Left arm, Patient Position: Sitting, BP Cuff Size: Adult long) Pulse 92 Temp 97.8 F (Temporal) Resp 18 Wt 226 lb SpO2 98% BMI 31.52 kg/m Smoking Status Every Day BSA 2.27 [...] Normal pulses. Heart sounds: Normal heart sounds. No murmur heard. Pulmonary: Effort: Pulmonary effort is normal. Breath sounds: Normal breath sounds. No wheezing or rhonchi. Abdominal: General: Bowel sounds are normal. Palpations: Abdomen is soft. Musculoskeletal: Cervical back: Neck supple. Right lower leg: No edema. Left lower leg: No edema. Comments: -SLR X2, DTR's 2+ bilat patellar/achilles MMT5/5 bilat No lumbar back pain, Lymphadenopathy: Cervical: No cervical adenopathy. Skin: General: Skin is warm and dry. Capillary Refill: Capillary refill takes 2 to 3 seconds. Neurological: General: No focal deficit present. Mental Status: He is alert. Psychiatric: Mood and Affect: Mood normal. Behavior: Behavior normal. Thought Content: Thought content normal. Judgment: Judgment normal. ASSESSMENT AND PLAN: Follow up in about 3 months (around 05/27/2025) for Recheck. Problem List Items Addressed This Visit CAD (coronary artery disease) (CMS/HCC) - Primary Calcifications noted on chest CT Current meds: asa, statin, yadira Strong family hx of CAD No active chest pain Last appt ordered stress test: insurance denied the request for this I will want to appeal this, as this patient, while asymptomatic, does have very strong risk factors for CAD Type 2 diabetes mellitus without complications Check blood sugars daily, notify if <70 [...] asa, statin, yadira, metfromin A1c: 5.6% 12/02/24 Cigarette nicotine dependence without complication The patient has been advised of the risks of continued smoking: stroke, SD, all forms of cancer, lung disease, and . Options for quitting smoking include: cold turkey, hypnosis, acupuncture, nicotine replacement meds (gum, lozenges, and patches), Buproprion, and Varenicline. At this time pt is encouraged to evaluate their goals for wanting to quit smoking, and reach out to provider when ready to start this process Primary hypertension (CMS/HCC) Please check blood pressure daily and record DASH diet Limit caffeine Take medication as directed Contact office if chest pain, pressure, dizziness, shortness of breath, swelling legs Recommend slow position changes Current med: lisinopril Degenerative lumbar disc Educated on suspected radiculopathy L2/L3 dermatome Feeling much better after steroids Will monitor at this time Educated on red flag sxs, if this occurs contact office Class 1 obesity due to excess calories with serious comorbidity in adult Discussed with patient their BMI (actual, verses recommended). We have also discussed lifestyle modifications: attempts to perform physical activity as chronic conditions allow, also to monitor dietary intake: increasing protein/fruits/veggies and lowering carb intake (unless contraindicated). Limit sodas, juices, and sugary drinks. Family history of early CAD Associated Problem(s): Cigarette nicotine dependence without complication The patient has been advised of the risks of continued smoking: stroke, SD, all forms of cancer, lung disease, and . Options for quitting smoking include: cold turkey, hypnosis, acupuncture, nicotine replacement meds (gum, lozenges, and patches), Buproprion, and Varenicline. At this time pt is encouraged to evaluate their goals for wanting to quit smoking, and reach out to provider when ready to start this process Associated Problem(s): Type 2 diabetes mellitus without complications Check blood sugars daily, notify if <70 [...] asa, statin, yadira, metfromin A1c: 5.6% 12/02/24 Associated Problem(s): Class 1 obesity due to excess calories with serious comorbidity in adult Discussed with patient their BMI (actual, verses recommended). We have also discussed lifestyle modifications: attempts to perform physical activity as chronic conditions allow, also to monitor dietary intake: increasing protein/fruits/veggies and lowering carb intake (unless contraindicated). Limit sodas, juices, and sugary drinks. Associated Problem(s): Primary hypertension (CMS/HCC) Please check blood pressure daily and record DASH diet Limit caffeine Take medication as directed Contact office if chest pain, pressure, dizziness, shortness of breath, swelling legs Recommend slow position changes Current med: lisinopril Associated Problem(s): CAD (coronary artery disease) (CMS/HCC) Calcifications noted on chest CT Current meds: asa, statin, yadira Strong family hx of CAD No active chest pain Last appt ordered stress test: insurance denied the request for this I will want to appeal this, as this patient, while asymptomatic, does have very strong risk factors for CAD documented in this encounter [facility] 12-16-2024 Note Patient Education Pulmonary Medicine Health Risks of Smoking Smoking tobacco is very bad for your health. Tobacco smoke contains many toxic chemicals that can damage every part of your body. Secondhand smoke can be harmful to those around you. Tobacco or nicotine use can cause many long-term (chronic) diseases. Smoking is difficult to quit because a chemical in tobacco, called nicotine, causes addiction or dependence. When you smoke and inhale, nicotine is absorbed quickly into your bloodstream through your lungs. Both inhaled and non-inhaled nicotine may be addictive. How can quitting affect me? There are health benefits of quitting smoking. Some benefits happen right away and others take time. Benefits may include: ??? Blood flow, blood pressure, heart rate, and lung capacity may begin to improve. However, any lung damage that has already occurred cannot be repaired. ??? Respiratory symptoms from smoking, such as nasal congestion and cough, may improve over time. ??? Your risk of heart disease, stroke, and cancer is reduced. ??? The overall quality of your health may improve. ??? You may save money, as you will not spend money on tobacco products and may spend less money on smoking-related health issues. What can increase my risk? Smoking harms nearly every organ in the body. People who smoke tobacco have a shorter life expectancy and an increased risk of many serious medical problems. These include: ??? More respiratory infections, such as colds and pneumonia. ??? Cancer. ??? Heart disease. ??? Stroke. ??? Chronic respiratory diseases. ??? Delayed wound healing and increased risk of complications during surgery. ??? Problems with reproduction, , and childbirth, such as infertility, early (premature) births, stillbirths, and defects. Secondhand smoke exposure to children increases the risk of: ??? Sudden syndrome (SIDS). ??? Infections in the nose, throat, or airways (respiratory infections). ??? Chronic respiratory symptoms. What actions can I take to quit? Smoking is an addiction that affects both your body and your mind, and long-time habits can be hard to change. Your health care provider can recommend: ??? Nicotine replacement products, such as patches, gum, and nasal sprays. Use these products only as directed. Do not replace cigarette smoking with electronic cigarettes, which are commonly called e-cigarettes. The safety of e-cigarettes is not known, and some may contain harmful chemicals. ??? Programs and community resources, which may include group support, education, or talk therapy. ??? Prescription medicines to help reduce cravings. ??? A combination of two or more quit methods, which may increase the success of quitting. Where to find support Follow the recommendations from your health care provider about support groups and other assistance. You can also visit: ??? U.[place]. Department of Health and Human Services: www.smokefree.gov ??? [employer]: www.freedomfromsmoking.org ??? [employer]: www.heart.org Where to find more information ??? Centers for Disease Control and Prevention: www.cdc.gov ??? World Health Organization: www.who.int Summary ??? Smoking tobacco is very bad for your health. Tobacco smoke contains many toxic chemicals that can damage every part of the body. ??? Smoking is difficult to quit because a chemical in tobacco, called nicotine, causes addiction or dependence. ??? There are immediate and long-term health benefits of quitting smoking. ??? A combination of two or more quit methods may increase the success of quitting. This information is not intended to replace advice given to you by your health care provider. Make sure you discuss any questions you have with your health care provider. Document Revised: 09/27/2022 Document Reviewed: 09/27/2022 [employer] Patient Education ? 2023 [employer]. [facility] 12-02-2024 History of Present illness Narrative Associated [...] dyslipidemia and diabetes mellitus. Past treatments include YADIRA inhibitors. The current treatment provides significant improvement. There are no compliance problems. There is no history of CAD/SD, heart failure or PVD. Diabetes He presents [...] with treatment all of the time. An YADIRA inhibitor/angiotensin II receptor diana is being taken. He does not see a recreation assistant.Eye exam is current. SUBJECTIVE: MEDICATIONS: Current Outpatient [...] History: Diagnosis Date CAD (coronary artery disease) ([facility]) 12/04/2023 Cigarette nicotine dependence without complication 12/04/2023 History of adenomatous polyp of colon 12/04/2023 Hyperlipidemia, mixed ([facility]) 12/04/2023 Hypertension ([facility]) 12/04/2023 Kidney stone on left side 12/04/2023 Lumbar radiculopathy Osteoarthritis of both hips, unspecified osteoarthritis type 12/04/2023 Pancreatitis 12/04/2023 Tobacco user 12/04/2023 Type 2 diabetes mellitus ([facility]) 12/04/2023 History reviewed. No pertinent surgical history. [...] Addressed This Visit CAD (coronary artery disease) ([facility]) Calcifications noted on chest CT Current meds: asa, statin, yadira Strong family hx of CAD No active chest pain Will order stress test Relevant Orders Stress test with myocardial perfusion Type 2 diabetes mellitus without complications ([facility]) - Primary Check blood sugars daily, notify [...] asa, statin, yadira, metfromin A1c: 5.6% 12/02/24 Relevant Medications aspirin 81 MG EC tablet atorvastatin (Lipitor) 80 MG tablet metFORMIN XR (Glucophage-XR) 750 MG 24 hr tablet Other Relevant Orders POCT glycosylated hemoglobin (Hb A1C) docked device (Completed) Hyperlipidemia, mixed ([facility]) On statin therapy Check labs yearly, and prn dose changes Relevant Orders Stress test with myocardial perfusion Cigarette nicotine dependence without complication The patient has been advised of the risks of continued smoking: stroke, SD, all forms of cancer, lung disease, and . Options for quitting smoking include: cold turkey, hypnosis, acupuncture, nicotine replacement meds (gum, lozenges, and patches), Buproprion, and Varenicline. At this time pt is encouraged to evaluate their goals for wanting to quit smoking, and reach out to provider when ready to start this process Relevant Orders Stress test with myocardial perfusion Primary hypertension ([facility]) Please check blood pressure daily and record [...] Follows with Dr Des Dewitt Centrilobular emphysema (CMS/HCC) No current daily inhalers [...] without long-term current use of insulin (CMS/HCC) Relevant Medications metFORMIN XR (Glucophage-XR) 750 MG [...] and sugary drinks. Associated Problem(s): Hyperlipidemia, mixed (CMS/HCC) On statin therapy Check labs yearly, and prn dose changes Associated Problem(s): Cigarette nicotine dependence without complication The patient has been advised of the risks of continued smoking: stroke, SD, all forms of cancer, lung disease, and . Options for quitting smoking include: cold turkey, hypnosis, acupuncture, nicotine replacement meds (gum, lozenges, and patches), Buproprion, and Varenicline. At this time pt is encouraged to evaluate their goals for wanting to quit smoking, and reach out to provider when ready to start this process Associated Problem(s): Type 2 diabetes mellitus without complications ([facility]) Check blood sugars daily, notify if <70 [...] asa, statin, yadira, metfromin A1c: 5.6% 12/02/24 Associated Problem(s): Elevated PSA Has been referred to urology Current meds: flomax Associated Problem(s): Primary hypertension ([facility]) Please check blood pressure daily and record DASH diet Limit caffeine Take medication as directed Contact office if chest pain, pressure, dizziness, shortness of breath, swelling legs Recommend slow position changes Current med: lisinopril Associated Problem(s): CAD (coronary artery disease) ([facility]) Calcifications noted on chest CT Current meds: asa, statin, yadira Strong family hx of CAD No active chest pain Will order stress test Associated Problem(s): Centrilobular emphysema (CMS/HCC) No current daily inhalers for treatment Does continue with smoking Associated Problem(s): Multiple pulmonary nodules Follows with Dr Des Dewitt documented in this encounter [facility] 12-02-2024 Instructions Mildred Corral NP - 12/02/2024 8:40 AM EST Keep appt with Urology Will order stress test at [facility] No medication changes documented in this encounter [facility] 06-25-2024 Hospital Discharge instructions Patient Education 06/25/2024 [...] treatment? Where to find more information [employer]: www.cancer.org [employer]: www.auanet.org Contact a health care [...] provider. Document Revised: 03/21/2022 Document Reviewed: 03/21/2022 [employer] Patient Education 2023 [employer]. 06/25/2024 13:09:32 Benign Prostatic Hyperplasia Benign Prostatic [...] urethra. Follow these instructions at home: Take gneb-wqh-ldsdgng and prescription medicines only as told by [...] provider. Document Revised: 04/13/2022 Document Reviewed: 04/13/2022 [employer] Patient Education 2023 [employer] Follow Up Care 06/05/2024 09:20:17 With:SENG Carpio APRN, Moni Ferguson, KARISSA, URL Address: When: Unknown Comments:pending MRI [facility] 06-25-2024 Note Urology Office/Clini c Note HPI [...] with voice recognition artificial intelligence software, specifically FeedMagnet, Exec and or AppSlingr. Substitutions may have occurred due to the [...] to proceed w/ MRI. -pro[place] [facility]. Pt knows that this could lead to [...] Urnls Dip Stick Auto w/o Microscopy POC 15948 2. BPH (benign prostatic hyperplasia) (N40.0: Benign [...] Father. Immunizations Vaccine (more content not included)... [facility] Comment on above: Result Comment: [...] Where to find more information ? The [employer]: www.cancer.org ? [employer]: www.auanet.org Contact a health care [...] of the rectum. (more content not included)... [facility] 06-03-2024 History of Present illness Narrative Associated [...] of the risks of continued smoking: stroke, SD, all forms of cancer, lung disease, and [...] obesity and smoking/tobacco exposure. Past treatments include YADIRA inhibitors. The current treatment provides significant improvement. [...] with treatment all of the time. An YADIRA inhibitor/angiotensin II receptor diana is being taken. He does not see a recreation assistant.Eye exam is current. SUBJECTIVE: MEDICATIONS: Current Outpatient [...] History: Diagnosis Date CAD (coronary artery disease) ([facility]) 12/04/2023 Cigarette nicotine dependence without complication 12/04/2023 History of adenomatous polyp of colon 12/04/2023 Hyperlipidemia, mixed ([facility]) 12/04/2023 Hypertension ([facility]) 12/04/2023 Kidney stone on left side 12/04/2023 Lumbar radiculopathy Osteoarthritis of both hips, unspecified osteoarthritis type 12/04/2023 Pancreatitis 12/04/2023 Tobacco user 12/04/2023 Type 2 diabetes mellitus ([facility]) 12/04/2023 History reviewed. No pertinent surgical history. [...] Addressed This Visit Type 2 diabetes mellitus ([facility]) A1c in range UTD on eye exam No changes in medications Cigarette nicotine dependence without complication The patient has been advised of the risks of continued smoking: stroke, SD, all forms of cancer, lung disease, and [...] to quit smoking documented in this encounter [facility] 02-24-2022 Hospital Discharge instructions Patient Education 02/24/2022 [...] Follow these instructions at home: Medicines Take rrxz-ppu-frkgfmu and prescription medicines only as told by [...] 10/14/2008 Document Revised: 01/06/2020 Document Reviewed: 08/16/2017 [employer] Patient Education 2020 [employer]. 02/24/2022 16:14:46 Eoaz-Vleo-rf Utereroscopy,Lithotripsy, Stone Extraction, Stent Placement (Custom) [facility] [place], [place] Post-operative Instructions for Ureteroscopy, Laser Lithotripsy, [...] other reasons. 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 Extracted from: Title:Pre-anesthesia - Adult Author:Parker Fields Jr., DO Date:02/24/22 Plan [employer] Anesthesiologists (ASA) physical status classification: Class III. Anesthetic Preoperative Plan Anesthesia: General. . Anesthetic plan, risks, benefits, and alternatives discussed with the patient and/or family. Patient verbalized understanding. Adverse reactions, complications, and alternatives discujssed. Consent signed and on chart.. [facility] information available [facility] Work Phone: Evaluation note* Diagnosis Lung nodule, multiple- Primary documented in this encounter [facility] HealthcareEvaluation note* Diagnosis Type 2 diabetes mellitus without complication, without long-term current use of insulin (CMS/HCC)- Primary History of adenomatous polyp of colon Personal history of colonic polyps Primary hypertension (CMS/HCC) Unspecified essential hypertension Coronary artery disease involving miami coronary artery 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 (CMS/HCC) Cigarette nicotine [...] of insulin (CMS/HCC) documented in this encounter [facility] HealthcareEvaluation note* Diagnosis Type 2 diabetes mellitus without complication, without long-term current use of insulin (CMS/HCC)- Primary History of adenomatous polyp of colon Personal history of colonic polyps Primary hypertension (CMS/HCC) Unspecified essential hypertension Coronary artery disease involving miami coronary artery 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 (CMS/HCC) Cigarette nicotine [...] nodule, multiple- Primary documented in this encounter [facility] HealthcareEvaluation note* Diagnosis Primary hypertension (CMS/HCC)- Primary Unspecified essential hypertension Centrilobular emphysema (CMS/HCC) BMI 32.0-32.9,adult Type 2 diabetes mellitus without complication, without long-term current use of insulin (CMS/HCC) Cigarette nicotine dependence without complication Rising PSA level documented in this encounter [facility]* Diagnosis Type 2 diabetes mellitus without complication, without long-term current use of insulin (CMS/HCC)- Primary History of adenomatous polyp of colon Personal history of colonic polyps Primary hypertension (CMS/HCC) Unspecified essential hypertension Coronary artery disease involving miami coronary artery 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 (CMS/HCC) Cigarette nicotine [...] Unspecified essential hypertension documented in this encounter [facility] HealthcareEvaluation note* Diagnosis Type 2 diabetes mellitus without complication, without long-term current use of insulin (CMS/HCC)- Primary History of adenomatous polyp of colon Personal history of colonic polyps Primary hypertension (CMS/HCC) Unspecified essential hypertension Coronary artery disease involving miami coronary artery 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 (CMS/HCC) Cigarette nicotine [...] not elsewhere classified Coronary artery disease involving miami coronary artery 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 (CMS/HCC) Primary hypertension [...] ischemic heart disease documented in this encounter [facility] HealthcareEvaluation note* Diagnosis Type 2 diabetes mellitus without complication, without long-term current use of insulin (CMS/HCC)- Primary History of adenomatous polyp of colon Personal history of colonic polyps Primary hypertension (CMS/HCC) Unspecified essential hypertension Coronary artery disease involving miami coronary artery 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 (CMS/HCC) Cigarette nicotine [...] not elsewhere classified Coronary artery disease involving miami coronary artery 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 (CMS/HCC) Primary hypertension [...] tract symptoms present documented in this encounter [facility] HealthcareEvaluation note* Diagnosis Type 2 diabetes mellitus without complication, without long-term current use of insulin- Primary History of adenomatous polyp of colon Personal history of colonic polyps Primary hypertension (CMS/HCC) Unspecified essential hypertension Coronary artery disease involving miami coronary artery 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 (CMS/HCC) Cigarette nicotine dependence without complication Tobacco user Tobacco use disorder BMI 32.0-32.9,adult Controlled type 2 diabetes mellitus without complication, without long-term current use of insulin Benign prostatic hyperplasia with weak urinary stream Primary hypertension (CMS/HCC)- Primary Unspecified essential hypertension Centrilobular emphysema (CMS/HCC) BMI 32.0-32.9,adult Type 2 diabetes mellitus without complication, without long-term current use of insulin Cigarette nicotine dependence without complication Rising PSA level Type 2 diabetes mellitus without complication, without long-term current use of insulin- Primary Type 2 diabetes mellitus without complications Centrilobular emphysema (CMS/HCC) Multiple pulmonary nodules Other diseases of lung, not elsewhere classified Coronary artery disease involving miami coronary artery 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 (CMS/HCC) Primary hypertension [...] complication, without long-term current use of insulin Family history of early CAD Family history of ischemic heart disease Sciatica, unspecified laterality- Primary documented in this encounter [facility] HealthcareEvaluation note* Diagnosis Type 2 diabetes mellitus without complication, without long-term current use of insulin- Primary History of adenomatous polyp of colon Personal history of colonic polyps Primary hypertension (CMS/HCC) Unspecified essential hypertension Coronary artery disease involving miami coronary artery 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 (CMS/HCC) Cigarette nicotine dependence without complication Tobacco user Tobacco use disorder BMI 32.0-32.9,adult Controlled type 2 diabetes mellitus without complication, without long-term current use of insulin Benign prostatic hyperplasia with weak urinary stream Primary hypertension (CMS/HCC)- Primary Unspecified essential hypertension Centrilobular emphysema (CMS/HCC) BMI 32.0-32.9,adult Type 2 diabetes mellitus without complication, without long-term current use of insulin Cigarette nicotine dependence without complication Rising PSA level Type 2 diabetes mellitus without complication, without long-term current use of insulin- Primary Type 2 diabetes mellitus without complications Centrilobular emphysema (CMS/HCC) Multiple pulmonary nodules Other diseases of lung, not elsewhere classified Coronary artery disease involving miami coronary artery 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 (CMS/HCC) Primary hypertension [...] complication, without long-term current use of insulin Family history of early CAD Family history of ischemic heart disease Coronary artery disease involving miami coronary artery 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 (CMS/HCC)- Primary Primary hypertension (CMS/HCC) Unspecified essential hypertension Class 1 obesity due to excess calories with serious comorbidity in adult, unspecified BMI Family history of early CAD Family history of ischemic heart disease Type 2 diabetes mellitus without complication, without long-term current use of insulin Cigarette nicotine dependence without complication Degeneration of intervertebral disc of lumbar region with lower extremity pain documented in this encounter [facility] HealthcareEvaluation note* Diagnosis Type 2 diabetes mellitus without complication, without long-term current use of insulin (HCC)- Primary History of adenomatous polyp of colon Personal history of colonic polyps Primary hypertension Unspecified essential hypertension Coronary artery disease involving miami coronary artery 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 Cigarette nicotine dependence without complication Tobacco user Tobacco use disorder BMI 32.0-32.9,adult Controlled type 2 diabetes mellitus without complication, without long-term current use of insulin (HCC) Benign prostatic hyperplasia with weak urinary stream Primary hypertension- Primary Unspecified essential hypertension Centrilobular emphysema (HCC) BMI 32.0-32.9,adult Type 2 diabetes mellitus without complication, without long-term current use of insulin (HCC) Cigarette nicotine dependence without complication Rising PSA level Type 2 diabetes mellitus without complication, without long-term current use of insulin (HCC)- Primary Type 2 diabetes mellitus without complications (HCC) Centrilobular emphysema (HCC) Multiple pulmonary nodules Other diseases of lung, not elsewhere classified Coronary artery disease involving miami coronary artery 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 Primary hypertension Unspecified essential hypertension Elevated PSA Elevated prostate specific antigen (PSA) Benign prostatic hyperplasia, unspecified whether lower urinary tract symptoms present Cigarette nicotine dependence without complication Hyperlipidemia, mixed Mixed hyperlipidemia Class 1 obesity due to excess calories with serious comorbidity in adult, unspecified BMI Controlled type 2 diabetes mellitus without complication, without long-term current use of insulin (HCC) Family history of early CAD Family history of ischemic heart disease Coronary artery disease involving miami coronary artery 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- Primary Primary hypertension Unspecified essential hypertension Class 1 obesity due to excess calories with serious comorbidity in adult, unspecified BMI Family history of early CAD Family history of ischemic heart disease Type 2 diabetes mellitus without complication, without long-term current use of insulin (HCC) Cigarette nicotine dependence without complication Degeneration of intervertebral disc of lumbar region with lower extremity pain Primary hypertension- Primary Unspecified essential hypertension Coronary artery disease involving miami coronary artery 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 Type 2 diabetes [...] urinary tract symptoms documented in this encounter [facility] Narrative No data available for this section [facility] No data available for this section [facility] [employer] Summary Purpose Family History No Family History [...] IV contrast Mildred Corral, CARLA [address] [place] [address] Referral ID Status Reason Start Date Expiration Date V isits Requested Visits Authorized [id number] Pending Review 07/15/2024 01/11/2025 1 1 Additional Source Comments (unrecognized sect ion and content) No Status Records FoundNo Status Records FoundNo Status Records FoundNo Status Records Found INFORMATION SOURCE (unrecogn ized section and content) DATE CREATED AUTHOR 12/23/2022 [facility] DATE CREATED AUTHOR AUTHOR'S ORGANIZ ATION 08/04/2024 [facility] DATE CREATED AUTHOR AUTHOR'S ORGANIZ ATION 12/17/2024 [facility] DATE CREATED AUTHOR AUTHOR'S ORGANIZ ATION 06/03/[address] [facility] [employer] Care Teams (unrecognized sec tion and content) Team Status: Active Member Role Status Dates Mildred Corral Primary Care Provider Active Team Status: Inactive Member Role Status Dates Mildred Corral Primary Care Provide r, Attending Provider Active Start: March 25, 2024 End: March 25, 2024 Front Desk Attendant Relationship Specialty Start Date End Date Pavan Dailey MD [address] [address] PCP - General Family Medicine 11/06/23 Team Status: Inactive Member Role Status Dates Mildred Corral Primary Care Provider Active Sta rt: July 29, 2024 End: July 29, 2024 DANIEL Werner Attending Provider Active Start: July 29, 2024 End: July 29, 2024 Front Desk Attendant Relationship Specialty Start Date End Date Pavan Dailey MD [address] [address] PCP - General Family Medicine 11/06/23 Front Desk Attendant Relationship Specialty Start Date End Date Pavan Dailey MD [address] [place] [address] PCP - General Family Medicine 11/06/23 Front Desk Attendant Relationship Specialty Start Date End Date Pavan Dailey MD [address] [place] [address] PCP - General Family Medicine 11/06/23 Front Desk Attendant Relationship Specialty Start Date End Date Pavan Dailey MD [address] [place] [address] PCP - General Family Medicine 11/06/23 Front Desk Attendant Relationship Specialty Start Date End Date Pavan Dailey MD [address] [place] [address] PCP - General Family Medicine 11/06/23 Front Desk Attendant Relationship Specialty Start Date End Date Pavan Dailey MD [address] [place] [phone] PCP - General Family Medicine 11/06/23 Front Desk Attendant Relationship Specialty Start Date End Date Pavan Dailey MD [address] [place] [address] PCP - General Family Medicine 11/06/23 Front Desk Attendant Relationship Specialty Start Date End Date Pavan Dailey MD [address] [place] [address] PCP - General Family Medicine 11/06/23 Front Desk Attendant Relationship Specialty Start Date End Date Pavan Dailey MD [address] [place] [address] PCP - General Family Medicine 11/06/23 Front Desk Attendant Relationship Specialty Start Date End Date Pavan Dailey MD [address] [place] [address] PCP - General [facility] Medicine 11/06/23 Front Desk Attendant Relationship Specialty Start Date End Date Pavan Dailey MD [address] [place] [address] PCP - General Family Medicine 11/06/23 Mildred Corral NP [address] [place] [address] PCP - [employer] 01/07/25 Front Desk Attendant Relationship Specialty Start Date End Date Pavan Dailey MD [address] [place] [address] PCP - General Family Medicine 11/06/23 Mildred Corral NP [address] [place] [address] PCP - [employer] 01/07/25 Front Desk Attendant Relationship Specialty Start Date End Date Pavan Dailey MD [address] [place] [address] PCP - General Family Medicine 11/06/23 Mildred Corral NP [address] [place] [address] PCP [facility] 01/07/25 Front Desk Attendant Relationship Specialty Start Date End Date Pavan Dailey MD [address] [place] [phone] PCP - General [facility] Medicine 11/06/23 Mildred Corral NP [address] [place] [address] PCP [facility] 01/07/25 Front Desk Attendant Relationship Specialty Start Date End Date Pavan Dailey MD [address] [place] [address] PCP - General [facility] 11/06/23 Mildred Corral NP [address] [place] [address] [facility] 01/07/25 Goals (unrecognized section and content) Goals may be documented in a n alternate section Reason for Visit (unrecogniz ed section and content) Reason Comments Med Refill Reason Onset Date Comments Med Refill 11/28/2024 Reason Comments Diabetes Reason Comments Diabetes FOR RECORDS PERTAINING TO PATIENTS WHO ARE [...] BE BASED ON THE PRIMARY CLINICAL RECORDS. [employer] provides no warranty or guarantee of the accuracy or completeness of information in this document.
[2025-06-14 07:43] LABS: Hematocrit 41.5 % (42.0-54.0); Hemoglobin 14.2 g/dL (14.0-18.0); Immature Granulocytes Abs Auto 0.02 10^3/uL (0.00-0.03); Immature Granulocytes Pct Auto 0.3 % (0.0-0.5); Lymphocytes Absolute Auto 2.0 10^3/uL (1.2-3.8); Mean Corpuscular HGB Conc 34.2 g/dL (29.9-35.2); Mean Corpuscular Hemoglobin 32.6 pg (25.9-34.0); Mean Corpuscular Volume 95.4 fL (80.0-94.0); Platelet Count 279 10^3/uL (150-450); Red Blood Count 4.35 10^6/uL (4.70-6.10); White Blood Count 6.7 10^3/uL (4.0-11.0)
[2025-06-14 07:56] LABS: Alanine Aminotransferase 31 U/L (16-63); Albumin Globulin Ratio 1.1; Albumin Level 4.0 g/dL (3.4-5.0); Alkaline Phosphatase 38 U/L (46-116); Anion Gap 15.7; Aspartate Amino Transferase 20 U/L (15-37); Blood Urea Nitrogen 14.0 mg/dL (7.0-18.0); Calcium 9.3 mg/dL (8.5-10.1); Carbon Dioxide 25.7 mmol/L (21.0-32.0); Chloride 105 mmol/L (98-107); Cholesterol 126 mg/dL (<=200); Estimated GFR (African America >60 (>=60 mL/min/1.73m^2); Estimated GFR (Non-African Ame >60 (>=60 mL/min/1.73m^2); Globulin 3.6 g/dL; Glucose 121 mg/dL (74-106); HDL Cholesterol 36 mg/dL (40-60); Potassium 4.4 mmol/L (3.5-5.1); Sodium 142 mmol/L (136-145); Total Protein 7.6 g/dL (6.4-8.2); Triglycerides 170 mg/dL (<=150); VLDL CHOLESTEROL 34.0 mg/dL
[2025-06-15 06:38] LABS: PSA, Free 0.17 ng/mL
== END 2025-06-14 07:14 | disposition home or self-care (01) ==
LOC: LAB 07:16
PROVIDERS: PCP Nurse Practitioner; Visit Provider Nurse Practitioner
DX: E78.2 Mixed hyperlipidemia (principal); I10 Essential (primary) hypertension; F17.210 Nicotine dependence, cigarettes, uncomplicated; I25.10 Atherosclerotic heart disease of native coronary artery without angina pectoris; E11.9 Type 2 diabetes mellitus without complications; R97.20 Elevated prostate specific antigen [PSA]
CPT/HCPCS: 36415; 80053; 80061; 82043; 82570; 84153; 84154; 85025

== ENCOUNTER 2025-06-15 12:48 | Outpatient (OUT) | payer BC, SELFPAY ==
--- OUTSIDE RECORDS SUMMARY | 2025-06-15 12:51 | XMS_ITS | CCD ---
Author Organization [facility] Care Team Providers Care Urgent Care Physician Name Role Phone MILDRED CORRAL Primary Care Physician [phone] AICHHOLZ, RETOUCHER MILDRED Admitting Unavailable AICHHOLZ, RETOUCHER MILDRED Attending Unavailable AICHHOLZ, RETOUCHER MILDRED Primary Care Unavailable AICHHOLZ, RETOUCHER MILDRED Consulting Unavailable AICHHOLZ, RETOUCHER MILDRED Admitting Unavailable AICHHOLZ, RETOUCHER MILDRED Attending Unavailable AICHHOLZ, RETOUCHER MILDRED Primary Care Unavailable AICHHOLZ, RETOUCHER MILDRED Consulting Unavailable PATRICK VAZQUEZ Consulting Unavailable AICHHOLZ, RETOUCHER MILDRED Admitting Unavailable AICHHOLZ, RETOUCHER MILDRED Attending Unavailable AICHHOLZ, RETOUCHER MILDRED Primary Care Unavailable SU ., DR BALDERRAMA Admitting Unavailable SU ., DR BALDERRAMA Attending Unavailable AICHHOLZ, RETOUCHER MILDRED Primary Care Unavailable SU ., DR BALDERRAMA Consulting Unavailable SAAB, MARSHA Consulting Unavailable SU ., DR BALDERRAMA Admitting Unavailable SU ., DR BALDERRAMA Attending Unavailable AICHHOLZ, RETOUCHER MILDRED Primary Care Unavailable SU ., DR BALDERRAMA Consulting Unavailable INWOOD, DR YAIMA Hughes Consulting Unavailable LAURA NEGRON Consulting Unavailable TAMLYN ., SARTHAK Admitting Unavailable TAMLYN ., SARTHAK Attending Unavailable AICHHOLZ, RETOUCHER MILDRED Primary Care Unavailable TAMLYN ., SARTHAK Consulting Unavailable OFELIA BOONE Consulting Unavailable CARIDAD MILLER Consulting Unavailable Mildred Corral Primary Care Provider Mildred Corral Attending Provider Pavan Dailey MD Primary Care Provider Mildred [...] complication, without long-term current use of insulin ([facility]) Take 1 tablet (80 mg) by mouth [...] Start: 01-17-2022 take 1 capsule by mo rih once daily tamsulosin 0.4 mg Cap 0.4 mg = 1 cap(s), Oral, Daily, # 30 cap(s), Refills(s) 8, Pharmacy: [facility], 180, cm, 01/17/22 9:28:00 [...] Coronary arteriosclerosis; 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: [Atherosclerotic heart disease of 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] Onset: 03-01-2022 Episodic Other [...] Interpretation and review of laboratory results Abnormal [facility] - Hematology and Cell countson 06-02-2025 HbA1c (Bld) [Mass fraction] 5.9 % [facility] Ambulatory Visit Summaryon 0 12-16-2024 Ambulatory Visit [...] AM EDT With: Where: [facility] [address] [id number] [phone] 8:20 AM EDT With: PRASHANT CORTES PA-C Where: [facility] [address] [id number]- You Need to Schedule the Following Appointments Follow Up with PRASHANT CORTES PA-C, URL When: In 1 year Where: [address] [address] Medications What How Much When Instructions Changed tamsulosin (tamsulosin 0.4 mg Cap) 1 Capsules By Mouth Every day Duration: 90 Days Pickup at [facility] Unchanged aspirin (Aspirin 81 mg [...] physician if questions or concerns Pharmacy Information [facility]: [address] [place], [place] [id number] [phone] Allergies No Known Allergies Problems Ongoing - [...] airways (respi (more content not included)... Normal [facility] Office/Clinic Noteon 12-16-2024 Urology Office/Clinic Note [...] E&M of Est. 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 [address] Additional Instructions: Patient Education Health [...] 10:50:00) Gluco (more content not included)... Normal [facility] Comment on above: Result Comment: Elec tronically Signed By: SOPHIA DIEZ, PRASHANT Gonzalez\.br\Date and Time Signed: 12/16/24 11:36 EDT MHPT PSA, DIAGNOSTICon 12-07 PROSTATE SPECIFIC ANTIGEN DX 0.56 ng/mL NINF - 4.00 ng/mL [facility] HbA1c (Bld) [Mass fraction]o n 12-02-2024 Interpretation and review of laboratory results Normal [facility] - Hematology and Cell countson 12-02-2024 HbA1c (Bld) [Mass fraction] 5.6 % [facility] Healthcare Provider Letteron 11-21-2024 Provider Letter Provider Letter November 21, 2024 HAKEEM STARK [address] [place] [id number] : 1955 Dear Hakeem, We have been [...] attention to this matter. Sincerely, [facility] [place] [address] [facility] CT CHEST WO CONon 11-11-2024 [place] [address] [place] Scan Report Signed Patient: HAKEEM STARK MR#: [id number] : 1955 Acct:[id number] Age/Sex: 69 / M ADM Date: 11/11/24 Loc: CT Attending Dr: Neris Zavala D.O. Ordering Physician: Neris Zavala D.O. Date of Service: 11/11/24 Procedure(s): CT chest wo con Accession Number(s): [id number] cc: Mildred Corral NP [place] [id number] Patient Name: HAKEEM STARK MRN: [facility]:[id number] date: 1955 Sex: M Assigned Patient Location: CT Current Patient Location: CT Accession/Order Number: [id number] Exam Date: 11/11/2024 07:40 Report Date: 11/11/2024 [...] Signed By: 11/11/24 1641 DD/ 1639 TD/TT: Rivet Thrower: [facility] Radiology, Radiologist, - 11/11/2024 [place] [address] CT Scan Report Signed Patient: HAKEEM STARK MR#: [id number] : 1955 Acct:[id number] Age/Sex: 69 / M ADM Date: 11/11/24 Loc: CT Attending Dr: Neris Zavala D.O. Ordering Physician: Neris Zavala D.O. Date of Service: 11/11/24 Procedure(s): CT chest wo con Accession Number(s): [id number] cc: Mildred Corral NP [place] [id number] Patient Name: HAKEEM STARK MRN: [facility]:[id number] date: 1955 Sex: M Assigned Patient Location: CT Current Patient Location: CT Accession/Order Number: [id number] Exam Date: 11/11/2024 07:40 Report Date: 11/11/2024 [...] Signed By: 11/11/24 1641 DD/ 1639 TD/TT: Rivet Thrower: [facility] Radiology Study observation (narrative) [facility] CT CHEST WO CONOrdered By: Jerry adiologdinh Radiology on 11-11-2024 [facility] Work Phone: MR prostate wo conon 024 MR prostate wo con [facility] [place] [address] [place] [address] MRI Report Signed Patient: Hakeem Stark MR#: [id number] : 1955 Acct:[id number] Age/Sex: 69 / M ADM Date: 07/29/24 Loc: MR Room: Type: [facility] Attending Dr: Mnoi SANCHEZ Copies to: DANIEL Werner Ordering Provider: [...] 1231 Signed By: 07/31/24 1248 Normal [facility] ISTAT XRay CREon 07-29-2024 ISTAT GFR > 60.0 Normal [facility] Comment on above: Result Comment: PERF ORMED BY: [place] [address] PATHOLOGIST SYSTEM PLANNING ENGINEER ONEYDA GUEVARA M.D. Performed By: #### I SCRE #### [facility] [address] [place] [address] No Panel InformationOrdered By: Moni Carpio on 07-29-2024 Bedside Estimated GFR (eGFR) > 60.[address] [facility] Whole blood creatinine measu rementOrdered By: Moni Carpio on 07-29-2024 Creatinine [Mass/Vol] 1.0 mg/dL Normal 0.6-1.3 [facility] Comment on above: ER/ESD physician is notified/shown all ISTAT results.Critical values may be confirmed by laboratory testing ifdeemed necessary by ER attending doctor. Result Comment: ER/E SD physician is notified/shown all ISTAT results. Critical values may be confirmed by laboratory testing if deemed necessary by ER attending doctor. Performed By: #### I SCRE #### [facility] [address] [place] [address] Ambulatory Visit Summaryon 0 06-25-2024 Ambulatory Visit [...] Following Appointments Follow Up with Balaji GARCIAN, WAX PUMPER-C, Moni X, FAM, URL When: Comments: pending [...] tract infectio (more content not included)... Normal [facility] Capillary blood glucose alex urement by glucometer (mass/volume)Ordered By: Mildred Corral on 03-25-2024 Glucose [Mass/Vol] 130 mg/dL Normal [facility] Comment on above: Random Glucose Refer ence Range is dependent on time and content of last meal. Glucose of more than 200 mg/dL in a nonstressed, ambulatory subject supports the diagnosis of Diabetes Mellitus. Result Comment: [place] Glucose Reference Range is dependent on time and content of last meal. Glucose of more than 200 mg/dL in a nonstressed, ambulatory subject supports the diagnosis of Diabetes Mellitus. PERFORMED BY: [facility] [address] [place] [address] PATHOLOGIST SYSTEM PLANNING ENGINEER ONEYDA GUEVARA M.D. Performed By: #### G LU #### Point of Care testing , PET tumor init tx strat sb-m [place] 03-25-2024 PET tumor init tx strat sb-mt [facility] [place] [address] [place] [address] Nuclear Medicine Report Signed Patient: Hakeem Stark MR#: [id number] : 1955 Acct:[id number] Age/Sex: 68 / M ADM Date: 03/25/24 Loc: Room: Type: [facility] Attending Dr: Mildred Corral Copies to: [...] Wadsworth Jr., D.O.03/25/2024 11:58 AM Dictation Location: [place] [address] Transcribed By: [facility] 03/25/24 1158 Dictated By: Galen Wadsworth Jr, DO 03/25/24 1150 Signed By: 03/25/24 1158 Normal [facility] Glucose Poct Glucometerson 0 03-18-2024 Glucose [Mass/Vol] 115 mg/dL Normal [facility] Comment on above: Result Comment: [facility] Glucose Reference Range is dependent on time and content of last meal. Glucose of more than 200 mg/dL in a nonstressed, ambulatory subject supports the diagnosis of Diabetes Mellitus. PERFORMED BY: [facility] [place] [address] PATHOLOGIST SYSTEM PLANNING ENGINEER ONEYDA GUEVARA M.D. Performed By: #### G [...] Please consider referral for smoking cessation to [facility] Medication Therapy Management (MTM) if clinically [...] two extremes (Agatston score 101-1000). [email or web address]://pubs.rsna.o rg/doi/abs/10.1148/ radiol.[email or web address] Electronically authenticated by: PATRICK VAZQUEZ Date: 2022-11-05 20:06 Normal [facility] GLYCOHEMOGLOBIN A1Con 2022 ADA RECOMMENDATION SEE BELOW Normal [facility] Comment on above: Result Comment: ADA RECOMMENDED LIMIT 4.0 - 6.0 ADA THERAPEUTIC TARGET < 7.0 ACTION SUGGESTED > 7.0 Performed By: #### A 1C #### [facility] [address] [place] [address] Dr. Gigi To Glucose [Mass/Vol] 117 mg/dL Normal [facility] Comment on above: Performed By: #### A 1C #### [facility] [address] [place] [address] [address] Gigi To HbA1c (Bld) [Mass fraction] 5.7 % Normal 4.5-6.2 [facility] Comment on above: Performed By: #### A 1C #### [facility] [address] [place] [address] Dr. Gigi To PROF CHEM 8 (BAS METB)on Anion gap [Moles/Vol] 16.1 mmol/L Normal [facility] Comment on above: Performed By: #### B MP #### [facility] [address] [place] [address] Dr. Gigi To Calcium [Mass/Vol] 9.4 mg/dL Normal 8.5-10.1 [facility] Comment on above: Performed By: #### B MP #### [facility] [address] [place] [address] Dr. Gigi To Chloride [Moles/Vol] 105 mmol/L Normal 98-107 [facility] Comment on above: Performed By: #### B MP #### [facility] [address] [place] [address] [address] Gigi To CO2 [Moles/Vol] 25.8 mmol/L Normal 21.0-32.0 [facility] Comment on above: Performed By: #### B MP #### [facility] [address] [place] [address] [address] Gigi To Creatinine [Mass/Vol] 1.02 mg/dL Normal 0.70-1.30 [facility] Comment on above: Performed By: #### B MP #### [facility] [address] [place] [address] [address] Gigi To EGFR-AF TUNISIAN >60 Normal >=60 [facility] Comment on above: Performed By: #### B MP #### [facility] [address] [place] [address] [address] Gigi To EGFR-NON AF TUNISIAN >60 Normal >=60 [facility] Comment on above: Performed By: #### B MP #### [facility] [address] [place] [address] [address] Gigi To Glucose [Mass/Vol] 109 mg/dL Critically high 74-106 [facility] Comment on above: Performed By: #### B MP #### [facility] [address] [place] [address] [address] Gigi To Potassium [Moles/Vol] 4.9 mmol/L Normal 3.5-5.1 [facility] Comment on above: Performed By: #### B MP #### [facility] [address] [place] [address] [address] Gigi To Sodium [Moles/Vol] 142 mmol/L Normal 136-145 [facility] Comment on above: Performed By: #### B MP #### [facility] [address] [place] [address] [address] Gigi To Urea nitrogen [Mass/Vol] 25.0 mg/dL Critically high 7.0-18.0 [facility] Comment on above: Performed By: #### B MP #### [facility] [address] [place] [address] Dr. Gigi To Urea nitrogen/Creatinine [Mass ratio] 24.5 mg/mg Normal [facility] Comment on above: Performed By: #### B MP #### [facility] [address] [place] [address] Dr. Gigi To CBC AUTO DIFFon 03-19-2022 BASO # 0.1 103/ul Normal 0.0-0.1 [facility] Comment on above: Performed By: #### C BC #### [facility] [address] [place] [address] Dr. Gigi To Basophils/100 WBC (Bld) 0.5 % Normal 0.2-2.0 [facility] Comment on above: Performed By: #### C BC #### [facility] [address] [place] [address] Dr. Gigi To EO # 0.3 103/ul Normal 0.0-0.7 [facility] Comment on above: Performed By: #### C BC #### [facility] [address] [place] [address] Dr. Gigi To Eosinophils/100 WBC (Bld) 2.7 % Normal 0.9-7.0 [facility] Comment on above: Performed By: #### C BC #### [facility] [address] [place] [address] Dr. Gigi To Erythrocyte distribution width (RBC) [Ratio] 14.0 % Normal 11.0-15.0 [facility] Comment on above: Performed By: #### C BC #### [facility] [address] [place] [address] Dr. Gigi To Hematocrit (Bld) [Volume fraction] 43.7 % Normal 42.0-54.0 [facility] Comment on above: Performed By: #### C BC #### [facility] [address] [place] [address] Dr. Gigi To Hemoglobin (Bld) [Mass/Vol] 14.4 g/dL Normal 14.0-18.0 [facility] Comment on above: Performed By: #### C BC #### [facility] [address] [place] [address] Dr. Gigi To IG # 0.03 10e3/ul Normal 0.00-0.03 [facility] Comment on above: Performed By: #### C BC #### [facility] [address] [place] [address] Dr. Gigi To IG % 0.3 % Normal 0.0-0.5 [facility] Comment on above: Performed By: #### C BC #### [facility] [address] [place] [address] Dr. Gigi To LYMPH # 2.9 103/ul Normal 1.2-3.8 [facility] Comment on above: Performed By: #### C BC #### [facility] [address] [place] [address] Dr. Gigi To Lymphocytes/100 WBC (Bld) 29.4 % Normal 20.5-60.0 [facility] Comment on above: Performed By: #### C BC #### [facility] [address] [place] [address] Dr. Gigi To MANUAL DIFF REQ NO Normal [facility] Comment on above: Performed By: #### C BC #### [facility] [address] [place] [address] Dr. Gigi To MCH (RBC) [Entitic mass] 32.2 pg Normal 25.9-34.0 [facility] Comment on above: Performed By: #### C BC #### [facility] [address] [place] [address] Dr. Gigi To MCHC (RBC) [Mass/Vol] 33.0 g/dL Normal 29.9-35.2 [facility] Comment on above: Performed By: #### C BC #### [facility] [address] [place] [address] Dr. Gigi To MCV (RBC) [Entitic vol] 97.8 fL Critically high 80.0-94.0 [facility] Comment on above: Performed By: #### C BC #### [facility] [address] [place] [address] [address] Gigi To MONO # 0.8 103/ul Normal 0.3-0.8 [facility] Comment on above: Performed By: #### C BC #### [facility] [address] [place] [address] [address] Gigi To Monocytes/100 WBC (Bld) 8.6 % Normal 1.7-12.0 [facility] Comment on above: Performed By: #### C BC #### [facility] [address] [place] [address] Dr. Gigi To NEUT # 5.7 103/ul Normal 1.4-6.5 [facility] Comment on above: Performed By: #### C BC #### [facility] [address] [place] [address] Dr. Gigi To Neutrophils/100 WBC (Bld) 58.5 % Normal 43.0-75.0 [facility] Comment on above: Performed By: #### C BC #### [facility] [address] [place] [address] Dr. Gigi To Platelet mean volume (Bld) [Entitic vol] 8.7 fL Critically low 9.5-13.5 [facility] Comment on above: Performed By: #### C BC #### [facility] [address] [place] [address] Dr. Gigi To PLT 280 103/ul Normal 150-450 [facility] Comment on above: Performed By: #### C BC #### [facility] [address] [place] [address] Dr. Gigi To RBC 4.47 106/ul Critically low 4.70-6.10 [facility] Comment on above: Performed By: #### C BC #### [facility] [address] [place] [address] Dr. Gigi To WBC 9.8 103/ul Normal 4.0-11.0 [facility] Comment on above: Performed By: #### C BC #### [facility] [address] [place] [address] Dr. Gigi To GLYCOHEMOGLOBIN A1Con 2021 ADA RECOMMENDATION SEE BELOW Normal [facility] Comment on above: Result Comment: ADA RECOMMENDED LIMIT 4.0 - 6.0 ADA THERAPEUTIC TARGET < 7.0 ACTION SUGGESTED > 7.0 Performed By: #### A 1C #### [facility] [address] [place] [address] Dr. Gigi To Glucose [Mass/Vol] 126 mg/dL Normal [facility] Comment on above: Performed By: #### A 1C #### [facility] [address] [place] [address] [address] Gigi To HbA1c (Bld) [Mass fraction] 6.0 % Normal 4.5-6.2 [facility] Comment on above: Performed By: #### A 1C #### [facility] [address] [place] [address] Dr. Gigi To LIPID PROFILEon 03-19-2022 CHOL-HDL RATIO NORM SEE BELOW Normal [facility] Comment on above: Result Comment: 3.3 - 4.4 LOW RISK 4.4 - 7.1 AVERAGE RISK 7.1 - 11.0 MODERATE RISK >11.0 HIGH RISK Performed By: #### L IPID, CMP #### [facility] [address] [place] [address] Dr. Gigi To Cholesterol [Mass/Vol] 105 mg/dL Normal <=200 [facility] Comment on above: Performed By: #### L IPID, CMP #### [facility] [address] [place] [address] Dr. Gigi To Cholesterol in HDL [Mass/Vol] 29 mg/dL Critically low 40-60 [facility] Comment on above: Performed By: #### L IPID, CMP #### [facility] [address] [place] [address] Dr. Gigi To Cholesterol in LDL [Mass/Vol] 26.8 mg/dL Normal [facility] Comment on above: Performed By: #### L IPID, CMP #### [facility] [address] [place] [address] Dr. Gigi To Cholesterol.total/Chol esterol in HDL [Mass ratio] 3.6 {ratio} Normal [facility] Comment on above: Performed By: #### L IPID, CMP #### [facility] [address] [place] [address] [address] Gigi To HDL NORMAL > or = 60 mg/dl - LOW CARDIOVASCULAR RISK <40 mg/dl - HIGH CARDIOVASCULAR RISK Normal [facility] Comment on above: Performed By: #### L IPID, CMP #### [facility] [address] [place] [address] [address] Gigi To LDL CALC NORMAL SEE BELOW Normal [facility] Comment on above: Result Comment: <100 mg/dl OPTIMAL 100 - 129 mg/dl NEAR OR ABOVE OPTIMAL 130 - 159 mg/dl BORDERLINE HIGH 160 - 189 mg/dl HIGH >190 mg/dl VERY HIGH Performed By: #### L IPID, CMP #### [facility] [address] [place] [address] [address] Gigi To Triglyceride [Mass/Vol] 246 mg/dL Critically high <=150 [facility] Comment on above: Performed By: #### L IPID, CMP #### [facility] [address] [place] [address] [address] Gigi To VLDL CALC 49.2 mg/dL Normal [facility] Comment on above: Performed By: #### L IPID, CMP #### [facility] [address] [place] [address] [address] Gigi To MICROALBUMIN, RAND URon - mALB 1.5 mg/L Normal <=30.0 [facility] Comment on above: Performed By: #### M ALBR #### [facility] [address] [place] [address] [address] Gigi To PROF 14(COMP METB)on 022 Albumin [Mass/Vol] 3.9 g/dL Normal 3.4-5.0 [facility] Comment on above: Performed By: #### L IPID, CMP #### [facility] [address] [place] [address] [address] Gigi To Albumin/Globulin [Mass ratio] 1.1 {ratio} Normal [facility] Comment on above: Performed By: #### L IPID, CMP #### [facility] [address] [place] [address] Dr. Gigi To ALP [Catalytic activity/Vol] 42 U/L Critically low 46-116 [facility] Comment on above: Performed By: #### L IPID, CMP #### [facility] [address] [place] [address] Dr. Gigi To ALT [Catalytic activity/Vol] 30 U/L Normal 16-63 [facility] Comment on above: Performed By: #### L IPID, CMP #### [facility] [address] [place] [address] Dr. Gigi To Anion gap [Moles/Vol] 14.5 mmol/L Normal [facility] Comment on above: Performed By: #### L IPID, CMP #### [facility] [address] [place] [address] Dr. Gigi To AST [Catalytic activity/Vol] 17 U/L Normal 15-37 [facility] Comment on above: Performed By: #### L IPID, CMP #### [facility] [address] [place] [address] Dr. Gigi To Bilirubin [Mass/Vol] 0.4 mg/dL Normal 0.2-1.0 [facility] Comment on above: Performed By: #### L IPID, CMP #### [facility] [address] [place] [address] Dr. Gigi To Calcium [Mass/Vol] 9.4 mg/dL Normal 8.5-10.1 [facility] Comment on above: Performed By: #### L IPID, CMP #### [facility] [address] [place] [address] Dr. Gigi To Chloride [Moles/Vol] 105 mmol/L Normal 98-107 [facility] Comment on above: Performed By: #### L IPID, CMP #### [facility] [address] [place] [address] Dr. Gigi To CO2 [Moles/Vol] 27.7 mmol/L Normal 21.0-32.0 [facility] Comment on above: Performed By: #### L IPID, CMP #### [facility] [address] [place] [address] Dr. Gigi To Creatinine [Mass/Vol] 1.00 mg/dL Normal 0.70-1.30 [facility] Comment on above: Performed By: #### L IPID, CMP #### [facility] [address] [address] [address] Gigi To EGFR-AF TUNISIAN >60 Normal >=60 [facility] Comment on above: Performed By: #### L IPID, CMP #### [facility] [address] [place] [address] Dr. Gigi To EGFR-NON AF TUNISIAN >60 Normal >=60 [facility] Comment on above: Performed By: #### L IPID, CMP #### [facility] [address] [place] [address] Dr. Gigi To Globulin (S) [Mass/Vol] 3.5 g/dL Normal [facility] Comment on above: Performed By: #### L IPID, CMP #### [facility] [address] [place] [address] Dr. Gigi To Glucose [Mass/Vol] 108 mg/dL Critically high 74-106 T [facility] Comment on above: Performed By: #### L IPID, CMP #### [facility] [address] [place] [address] Dr. Gigi To Potassium [Moles/Vol] 4.2 mmol/L Normal 3.5-5.1 [facility] Comment on above: Performed By: #### L IPID, CMP #### [facility] [address] [place] [address] Dr. Gigi To Protein [Mass/Vol] 7.4 g/dL Normal 6.4-8.2 [facility] Comment on above: Performed By: #### L IPID, CMP #### [facility] [address] [place] [address] Dr. Gigi To Sodium [Moles/Vol] 143 mmol/L Normal 136-145 [facility] Comment on above: Performed By: #### L IPID, CMP #### [facility] [address] [address] [address] Gigi To Urea nitrogen [Mass/Vol] 21.0 mg/dL Critically high 7.0-18.0 [facility] Comment on above: Performed By: #### L IPID, CMP #### [facility] [address] [address] [address] Gigi To Urea nitrogen/Creatinine [Mass ratio] 21.0 mg/mg Normal [facility] Comment on above: Performed By: #### L IPID, CMP #### [facility] [address] [place] [address] Dr. Gigi To CHEMISTRYOrdered By: Lab ROP User on 02-24-2022 Glucose [Mass/Vol] 119 mg/dL High 55 - 99 mg/dL FTM C POC Subsection Comment on above: Result Comment: Isha priti Meter POC Device SN [id number] Invalid Interpretation Code [facility] Subsection POC User ID [id number] Invalid Interpretation Code [facility] Subsection POC Username IQRA DODSON Invalid Interpretation Code [facility] Subsection XR KUB 1 VIEWon 02-24-2022 [...] YAIMA NOONAN Date: 2022-02-24 07:22 Normal [facility] CBC AUTO DIFFon 02-21-2022 BASO # 0.1 103/ul Normal 0.0-0.1 [facility] Comment on above: Performed By: #### A 1C #### [facility] [address] [place] [address] Dr. Gigi To Basophils/100 WBC (Bld) 0.6 % Normal 0.2-2.0 [facility] Comment on above: Performed By: #### A 1C #### [facility] [address] [place] [address] Dr. Gigi To EO # 0.2 103/ul Normal 0.0-0.7 [facility] Comment on above: Performed By: #### A 1C #### [facility] [address] [place] [address] Dr. Gigi To Eosinophils/100 WBC (Bld) 1.9 % Normal 0.9-7.0 [facility] Comment on above: Performed By: #### A 1C #### [facility] [address] [place] [address] Dr. Gigi To Erythrocyte distribution width (RBC) [Ratio] 14.3 % Normal 11.0-15.0 [facility] Comment on above: Performed By: #### A 1C #### [facility] [address] [place] [address] Dr. Gigi To Hematocrit (Bld) [Volume fraction] 40.4 % Critically low 42.0-54.0 [facility] Comment on above: Performed By: #### A 1C #### [facility] [address] [place] [address] Dr. Gigi To Hemoglobin (Bld) [Mass/Vol] 13.4 g/dL Critically low 14.0-18.0 [facility] Comment on above: Performed By: #### A 1C #### [facility] [address] [place] [address] Dr. Gigi To IG # 0.02 10e3/ul Normal 0.00-0.03 [facility] Comment on above: Performed By: #### A 1C #### [facility] [address] [place] [address] Dr. Gigi To IG % 0.3 % Normal 0.0-0.5 [facility] Comment on above: Performed By: #### A 1C #### [facility] [address] [place] [address] Dr. Gigi To LYMPH # 2.4 103/ul Normal 1.2-3.8 [facility] Comment on above: Performed By: #### A 1C #### [facility] [address] [place] [address] Dr. Gigi To Lymphocytes/100 WBC (Bld) 30.7 % Normal 20.5-60.0 [facility] Comment on above: Performed By: #### A 1C #### [facility] [address] [place] [address] Dr. Gigi To MANUAL DIFF REQ NO Normal [facility] Comment on above: Performed By: #### A 1C #### [facility] [address] [place] [address] Dr. Gigi To MCH (RBC) [Entitic mass] 31.8 pg Normal 25.9-34.0 [facility] Comment on above: Performed By: #### A 1C #### [facility] [address] [place] [address] Dr. Gigi To MCHC (RBC) [Mass/Vol] 33.2 g/dL Normal 29.9-35.2 [facility] Comment on above: Performed By: #### A 1C #### [facility] [address] [place] [address] Dr. Gigi To MCV (RBC) [Entitic vol] 95.7 fL Critically high 80.0-94.0 [facility] Comment on above: Performed By: #### A 1C #### [facility] [address] [place] [address] Dr. Gigi To MONO # 0.8 103/ul Normal 0.3-0.8 [facility] Comment on above: Performed By: #### A 1C #### [facility] [address] [place] [address] Dr. Gigi To Monocytes/100 WBC (Bld) 10.0 % Normal 1.7-12.0 [facility] Comment on above: Performed By: #### A 1C #### [facility] [address] [place] [address] Dr. Gigi To NEUT # 4.4 103/ul Normal 1.4-6.5 [facility] Comment on above: Performed By: #### A 1C #### [facility] [address] [address] [address] Gigi To Neutrophils/100 WBC (Bld) 56.5 % Normal 43.0-75.0 [facility] Comment on above: Performed By: #### A 1C #### [facility] [address] [address] [address] Gigi To Platelet mean volume (Bld) [Entitic vol] 9.1 fL Critically low 9.5-13.5 [facility] Comment on above: Performed By: #### A 1C #### [facility] [address] [place] [address] Dr. Gigi To PLT 256 103/ul Normal 150-450 [facility] Comment on above: Performed By: #### A 1C #### [facility] [address] [place] [address] Dr. Gigi To RBC 4.22 106/ul Critically low 4.70-6.10 [facility] Comment on above: Performed By: #### A 1C #### [facility] [address] [address] [address] Gigi To WBC 7.8 103/ul Normal 4.0-11.0 [facility] Comment on above: Performed By: #### A 1C #### [facility] [address] [place] [address] Dr. Gigi To PROF CHEM 8 (BAS METB)on Anion gap [Moles/Vol] 13.6 mmol/L Normal [facility] Comment on above: Performed By: #### B MP #### [facility] [address] [address] [address] Gigi To Calcium [Mass/Vol] 9.2 mg/dL Normal 8.5-10.1 [facility] Comment on above: Performed By: #### B MP #### [facility] [address] [address] [address] Gigi To Chloride [Moles/Vol] 104 mmol/L Normal 98-107 [facility] Comment on above: Performed By: #### B MP #### [facility] [address] [address] [address] Gigi To CO2 [Moles/Vol] 26.9 mmol/L Normal 21.0-32.0 [facility] Comment on above: Performed By: #### B MP #### [facility] [address] [address] [address] Gigi To Creatinine [Mass/Vol] 0.95 mg/dL Normal 0.70-1.30 [facility] Comment on above: Performed By: #### B MP #### [facility] [address] [address] [address] Gigi To EGFR-AF TUNISIAN >60 Normal >=60 [facility] Comment on above: Performed By: #### B MP #### [facility] [address] [address] [address] Gigi To EGFR-NON AF TUNISIAN >60 Normal >=60 [facility] Comment on above: Performed By: #### B MP #### [facility] [address] [address] [address] Gigi To Glucose [Mass/Vol] 121 mg/dL Critically high 74-106 [facility] Comment on above: Performed By: #### B MP #### [facility] [address] [address] [address] Gigi To Potassium [Moles/Vol] 4.5 mmol/L Normal 3.5-5.1 [facility] Comment on above: Performed By: #### B MP #### [facility] [address] [address] [address] Gigi To Sodium [Moles/Vol] 140 mmol/L Normal 136-145 [facility] Comment on above: Performed By: #### B MP #### [facility] [address] [address] [address] Gigi To Urea nitrogen [Mass/Vol] 15.0 mg/dL Normal 7.0-18.0 [facility] Comment on above: Performed By: #### B MP #### [facility] [address] [place] [address] Dr. Gigi To Urea nitrogen/Creatinine [Mass ratio] 15.8 mg/mg Normal [facility] Comment on above: Performed By: #### B MP #### [facility] [address] [place] [address] Dr. Gigi To PROTIMEon 02-21-2022 INR Coag (PPP) [Relative time] 0.99 {INR} Normal [facility] Comment on above: Performed By: #### A 1C #### [facility] [address] [place] [address] Dr. Gigi To INR GUIDELINES SEE BELOW Normal [facility] Comment on above: Result Comment: ASLHEY RED INR: 2.0 - 3.0 CONDITIONS NOT LISTED BELOW 2.5 - 3.5 FOR PROSTHETIC HEART VALVE REPLACEMENT 2.5 - 3.5 RECURRENT THROMBOSIS Performed By: #### A 1C #### [facility] [address] [place] [address] Dr. Gigi To PT Coag (PPP) [Time] 10.7 s Normal 9.0-11.6 [facility] Comment on above: Performed By: #### A 1C #### [facility] [address] [place] [address] Dr. Gigi To PTTon 02-21-2022 aPTT Coag (Bld) [Time] 26.2 s Normal 22.3-36.2 [facility] Comment on above: Performed By: #### A 1C #### [facility] [address] [place] [address] Dr. Gigi To Vital Signs Date Time Vital Sign Value Performing Clinician Facility 06-02-2025 08:38-0400 Body mass index (BMI) [Ratio] 32.13 kg/m2 Mildred Corral [employer]AGE MACHINE OPERATOR Work Phone: [facility] 06-02-2025 08:38-0400 Body temperature 97.81 [degF] Mildred Corral POSTAGE MACHINE OPERATOR Work Phone: [facility] 06-02-2025 08:38-0400 Body weight 104.51 kg Mildred Aichholz POSTAGE MACHINE OPERATOR Work Phone: [facility] 06-02-2025 08:38-0400 Diastolic blood pressure 82 mm[Hg] Mildred Aichholz POSTAGE MACHINE OPERATOR Work Phone: [facility] 06-02-2025 08:38-0400 Heart rate 91 /min Mildred Aichholz POSTAGE MACHINE OPERATOR Work Phone: [facility] 06-02-2025 08:38-0400 Respiratory rate 20 /min Mildred Aichholz POSTAGE MACHINE OPERATOR Work Phone: [facility] 06-02-2025 08:38-0400 SaO2% (BldA) [Mass fraction] 97 % Mildred Aichholz POSTAGE MACHINE OPERATOR Work Phone: [facility] 06-02-2025 08:38-0400 Systolic blood pressure 138 mm[Hg] Mildred Aichholz POSTAGE MACHINE OPERATOR Work Phone: [facility] 02-24-2025 08:38-0400 Body mass index (BMI) [Ratio] 31.52 kg/m2 Mildred Aichholz POSTAGE MACHINE OPERATOR Work Phone: [facility] 02-24-2025 08:38-0400 Body temperature 97.81 [degF] Mildred Gersonhholz POSTAGE MACHINE OPERATOR Work Phone: [facility] 02-24-2025 08:38-0400 Body weight 102.51 kg Mildred Gersonhholz POSTAGE MACHINE OPERATOR Work Phone: [facility] 02-24-2025 08:38-0400 Diastolic blood pressure 76 mm[Hg] Mildred Aichholz POSTAGE MACHINE OPERATOR Work Phone: [facility] 02-24-2025 08:38-0400 Heart rate 92 /min Mildred Aichholz POSTAGE MACHINE OPERATOR Work Phone: [facility] 02-24-2025 08:38-0400 Respiratory rate 18 /min Mildred Aichholz POSTAGE MACHINE OPERATOR Work Phone: [facility] 02-24-2025 08:38-0400 SaO2% (BldA) [Mass fraction] 98 % Mildred Corral POSTAGE MACHINE OPERATOR Work Phone: [facility] 02-24-2025 08:38-0400 Systolic blood pressure 134 mm[Hg] Mildredjudd Paynez POSTAGE MACHINE OPERATOR Work Phone: [facility] 12-02-2024 08:43-0500 Body mass index (BMI) [Ratio] 31.77 kg/m2 Mildredjudd Paynez POSTAGE MACHINE OPERATOR Work Phone: [facility] 12-02-2024 08:43-0500 Body temperature 98.49 [degF] Mildred Elmerz POSTAGE MACHINE OPERATOR Work Phone: [facility] 12-02-2024 08:43-0500 Body weight 103.33 kg Mildred Paynez POSTAGE MACHINE OPERATOR Work Phone: [facility] 12-02-2024 08:43-0500 Diastolic blood pressure 78 mm[Hg] Mildred Paynez POSTAGE MACHINE OPERATOR Work Phone: [facility] 12-02-2024 08:43-0500 Heart rate 101 /min Mildred Lolaholz POSTAGE MACHINE OPERATOR Work Phone: [facility] 12-02-2024 08:43-0500 Respiratory rate 20 /min Mildredjudd Paynez POSTAGE MACHINE OPERATOR Work Phone: [facility] 12-02-2024 08:43-0500 SaO2% (BldA) [Mass fraction] 95 % Mildredjudd Paynez POSTAGE MACHINE OPERATOR Work Phone: [facility] 12-02-2024 08:43-0500 Systolic blood pressure 128 mm[Hg] Mildred Elmerz POSTAGE MACHINE OPERATOR Work Phone: [facility] 06-03-2024 08:37-0400 Body mass index (BMI) [Ratio] 32.64 kg/m2 Mildredjudd Davilaholz POSTAGE MACHINE OPERATOR Work Phone: [facility] 06-03-2024 08:37-0400 Body temperature 97.9 [degF] Mildrde Lolaholz POSTAGE MACHINE OPERATOR Work Phone: [facility] 06-03-2024 08:37-0400 Body weight 106.14 kg Mildred Gersonhholz POSTAGE MACHINE OPERATOR Work Phone: [facility] 06-03-2024 08:37-0400 Diastolic blood pressure 80 mm[Hg] Mildred Aichholz POSTAGE MACHINE OPERATOR Work Phone: [facility] 06-03-2024 08:37-0400 Heart rate 89 /min Mildred Aichholz POSTAGE MACHINE OPERATOR Work Phone: [facility] 06-03-2024 08:37-0400 SaO2% (BldA) [Mass fraction] 95 % Mildred Aichholz POSTAGE MACHINE OPERATOR Work Phone: [facility] 06-03-2024 08:37-0400 Systolic blood pressure 140 mm[Hg] Mildred Aichholz POSTAGE MACHINE OPERATOR Work Phone: [facility] 03-25-2024 07:46-0400 Body height 180.34 cm Mildred Gersonhholz Work Phone: [facility] 03-25-2024 07:46-0400 Body weight 104.32 kg Mildred Gersonhholz Work Phone: [facility] 02-24-2022 17:16-0400 Blood Pressure Location [facility] 02-24-2022 17:16-0400 BP/Pulse Patient Position [facility] 02-24-2022 17:16-0400 Diastolic blood pressure 80 mm[Hg] [facility] 02-24-2022 17:16-0400 Heart rate 85 /min [facility] 02-24-2022 17:16-0400 Mean blood pressure 103 mm[Hg] [facility] 02-24-2022 17:16-0400 Respiratory rate 18 /min [facility] 02-24-2022 17:16-0400 SaO2% (BldA) [Mass fraction] 97 % [facility] 02-24-2022 17:16-0400 Systolic blood pressure 150 mm[Hg] [facility] 02-24-2022 16:20-0400 Blood Pressure Location [facility] 02-24-2022 16:20-0400 Diastolic blood pressure 90 mm[Hg] [facility] 02-24-2022 16:20-0400 Heart rate 84 /min [facility] 02-24-2022 16:20-0400 Respiratory rate 18 /min [facility] 02-24-2022 16:20-0400 SaO2% (BldA) [Mass fraction] 96 % [facility] 02-24-2022 16:20-0400 Systolic blood pressure 150 mm[Hg] [facility] 02-24-2022 16:13-0400 Body temperature 97.34 [degF] [facility] 02-24-2022 16:13-0400 Diastolic blood pressure 95 mm[Hg] [facility] 02-24-2022 16:13-0400 Heart rate 94 /min [facility] 02-24-2022 16:13-0400 Respiratory rate 15 /min [facility] 02-24-2022 16:13-0400 SaO2% (BldA) [Mass fraction] 95 % [facility] 02-24-2022 16:13-0400 Systolic blood pressure 154 mm[Hg] [facility] 02-24-2022 16:00-0400 Respiratory rate 24 /min [facility] 02-24-2022 15:55-0400 Respiratory rate 18 /min [facility] 02-24-2022 15:48-0400 Body temperature 97.16 [degF] [facility] 02-24-2022 15:45-0400 Respiratory rate 1 /min [facility] 02-24-2022 10:49-0400 Blood Pressure Location [facility] 02-24-2022 10:49-0400 Mean blood pressure 100 mm[Hg] [facility] 02-24-2022 10:47-0400 Body temperature 98.06 [degF] [facility] 02-24-2022 10:47-0400 Mean blood pressure 115 mm[Hg] [facility] 02-24-2022 10:47-0400 Heart rate 96 /min [facility] Encounters Encounter Date Encounter Type Care Provider Facility Start: 12-22-2025 ambulatory PRASHANT CORTES Facili ty:[facility] Start: 12-15-2025 ambulatory PRASHANT CORTES Facili ty:[facility] Start: 06-02-2025 End: 08-25-2025 Bamboo flowsheet Mildred Shayna POSTAGE MACHINE OPERATOR Work Phone: [facility] Start: 06-02-2025 End: 06-02-2025 Bamboo flowsheet Mildred Shayna POSTAGE MACHINE OPERATOR Work Phone: [facility] Start: 06-02-2025 End: 06-02-2025 Office outpatient visit 25 minutes Mildred Shayna POSTAGE MACHINE OPERATOR Work Phone: [facility] Comment on above: Primary hypertension (Primary Dx); Coronary artery disease involving [place] coronary artery of [place] heart without angina pectoris ; Type 2 [...] 04-22-2025 End: 04-22-2025 Telephone encounter Mildred Corral POSTAGE MACHINE OPERATOR Work Phone: [facility] Start: 02-24-2025 End: 02-24-2025 Bamboo flowsheet Mildred Shayna POSTAGE MACHINE OPERATOR Work Phone: [facility] Start: 02-24-2025 End: 02-24-2025 Bamboo flowsheet Mildred Shayna POSTAGE MACHINE OPERATOR Work Phone: [facility] Start: 02-24-2025 End: 02-24-2025 Office outpatient visit 25 minutes Mildred Shayna POSTAGE MACHINE OPERATOR Work Phone: [facility] Comment on above: Coronary artery dise ase involving [place] coronary artery of [place] heart without angina pectoris (CMS/HCC) (Primary Dx); [...] Start: 02-11-2025 End: 02-11-2025 Refill Mildred Lolaholz POSTAGE MACHINE OPERATOR Work Phone: [facility] Comment on above: Sciatica, unspecifie d laterality (Primary Dx) Start: 12-16-2024 End: 12-16-2024 ambulatory PRASHANT CORTES Facility:[facility] Start: 12-07-2024 End: 12-07-2024 Clinisync Result Encounter Generic External Data Provider [facility] External Department Unsolicited Start: 12-07-2024 End: 12-07-2024 Clinisync Result Encounter Generic External Data Provider [facility] External Department Unsolicited Start: 12-02-2024 End: 12-02-2024 Bamboo flowsheet Mildred Elmerz POSTAGE MACHINE OPERATOR Work Phone: [facility] Start: 12-02-2024 End: 12-02-2024 Bamboo flowsheet Mildred Aichholz POSTAGE MACHINE OPERATOR Work Phone: [facility] Start: 12-02-2024 End: 12-02-2024 Office outpatient visit 25 minutes Mildred Shayna POSTAGE MACHINE OPERATOR Work Phone: [facility] Comment on above: Type 2 diabetes rah itus without complication, without long- term current use of insulin (CMS/HCC) (Primary Dx); Type 2 diabetes mellitus without complications (CMS/HCC); Centrilobular emphysema (CMS/HCC); Multiple pulmonary nodules; Coronary artery disease involving [place] coronary artery of [place] heart without angina pectoris (CMS/HCC); Primary hypertension [...] Start: 12-02-2024 End: 12-02-2024 Refill Mildred Elmerz POSTAGE MACHINE OPERATOR Work Phone: [facility] Comment on above: Type 2 diabetes rah itus without complications ([facility]); Primary hypertension ([facility]); Type 2 diabetes mellitus without complication, without long-term current use of insulin ([facility]); Controlled type 2 diabetes mellitus without complication, without long-term current use of insulin ([facility]); Benign prostatic hyperplasia, unspecified whether lower urinary tract symptoms present Start: 11-28-2024 End: 11-28-2024 Refill Pavan Dailey MD Work Phone: [facility] Comment on above: Primary hypertension ([facility]) Start: 11-11-2024 End: 11-11-2024 Clinisync Result Encounter Generic External Data Provider [facility] External Department Unsolicited Start: 11-11-2024 End: 11-11-2024 Clinisync Result Encounter Generic External Data Provider [facility] External Department Unsolicited Start: 08-19-2024 End: 08-19-2024 Orders Only Mildred Shayna POSTAGE MACHINE OPERATOR Work Phone: [facility] Comment on above: Lung nodule, multipl e (Primary Dx) Start: 08-08-2024 End: 08-08-2024 Refill Mildred Elmerz POSTAGE MACHINE OPERATOR Work Phone: [facility] Comment on above: Type 2 diabetes rah itus without complication, without long- term current use of insulin ([facility]) Start: 07-29-2024 End: 07-29-2024 Patient encounter procedure Mildred Corral Work Phone: [facility] [place] Work Phone: Start: 07-29-2024 End: 07-29-2024 ambulatory Mildredjudd Corral Work Phone: [facility] Work Phone: Start: 07-15-2024 End: 07-15-2024 Orders Only Mildred Shayna POSTAGE MACHINE OPERATOR Work Phone: [facility] Comment on above: Lung nodule, multipl e (Primary Dx) Start: 06-25-2024 End: 06-25-2024 ambulatory Moni X Orzech Facility:[facility] Start: 06-25-2024 End: 06-25-2024 Patient encounter procedure Moni X Balaji [facility] Start: 06-03-2024 End: 06-03-2024 Bamboo flowsheet Mildred Corral POSTAGE MACHINE OPERATOR Work Phone: [facility] Start: 06-03-2024 End: 06-03-2024 Bamboo flowsheet Mildred Corral POSTAGE MACHINE OPERATOR Work Phone: [facility] Start: 06-03-2024 End: 06-03-2024 Office outpatient visit 25 minutes Mildred Corral POSTAGE MACHINE OPERATOR Work Phone: [facility] Comment on above: Primary hypertension (CMS/HCC) (Primary Dx); Centrilobular emphysema (CMS/HCC); BMI 32.0-32.9,adult; Type 2 diabetes mellitus without complication, without long-term current use of insulin (CMS/HCC); Cigarette nicotine dependence without complication; Rising PSA level Start: 06-03-2024 End: 06-03-2024 ambulatory MILDRED SHAYNA Not Available Start: 03-25-2024 End: 03-25-2024 Patient encounter procedure Mildred Shayna Work Phone: [facility] Work Phone: Start: 03-25-2024 End: 03-25-2024 ambulatory Mildred J Shayna Work Phone: [facility] Work Phone: Start: 12-26-2022 ambulatory RETOUCHER MILDRED CORRAL Facil ity:[facility]1 Start: 12-02-2022 End: 12-02-2022 ambulatory SARTHAK STEPHENS . Facility: Start: 11-05-2022 End: 11-06-2022 ambulatory PATTI CORRAL Facility:[facility] Start: 03-19-2022 End: 03-20-2022 ambulatory PATTI CORRAL Facility:[facility] Start: 02-25-2022 Encounter for other preprocedural examination DR TACOS SU . [facility] Start: 02-25-2022 Encounter for preprocedural cardiovascular examination DR TACOS SU . [facility] Start: 02-25-2022 Encounter for preprocedural laboratory examination DR TACOS SU . [facility] Start: 02-24-2022 End: 02-24-2022 Admission to same day surgery center Tacos SU [facility] Start: 02-24-2022 End: 02-24-[address] TACOS SU . Facility:[facility] Start: 02-21-2022 End: 02-22-[address] TACOS SU . Facility:[facility] Start: 02-21-2022 End: 02-22-2022 Encounter for preprocedural laboratory examination DR TACOS SU . Facility:[facility] Procedures Date Procedure Procedure Detail Performing Clinician Start: 06-02-2025 Hemoglobin glycosylated a1c Mildred Corral POSTAGE MACHINE OPERATOR Work Phone: Start: 12-07-2024 MHPT PSA, DIAGNOSTIC Ge neric External Data Provider Start: 12-02-2024 Hemoglobin glycosylated a1c Mildred Shayna POSTAGE MACHINE OPERATOR Work Phone: Start: 11-11-2024 CT CHEST WO CON Generic External Data Provider Start: 03-25-2024 Positron emission tomography with computed tomography Mildred Corral Work Phone: Start: 12-02-2022 Colonoscopy Mildred Angeline mejia POSTAGE MACHINE OPERATOR Work Phone: Start: 03-19-2022 PSA screening PATTI CORRAL Comment on above: Performed By: #### P SAD #### [facility] [address] [place] [address] Dr. Gigi To Start: 02-24-2022 Extracorporeal shock wave lithotripsy of calculus of kidney Tacos SU Colonoscopy Tacos SU Plan of Treatment Date Care Activity Detail Author Start: 12-02-2027 Screening for malign ant neoplasm of colon [facility] Start: 06-03-2026 Glaucoma screening Diabetes: R etinopathy Screening [facility] Start: 12-03-2025 Hemoglobin A1c measurement Diabetes: Hemoglobin A1C [facility] Start: 06-02-2025 End: 06-02-2026 Cardiac stress study Procedure STRESS TEST TREADMILL Imaging Routine Primary hypertension Coronary artery disease involving [place] coronary artery of [place] heart without angina pectoris Type 2 diabetes mellitus without complication, without long-term current use of insulin (HCC) Controlled type 2 diabetes mellitus without complication, without long-term current use of insulin ([facility]) Expected: 06/02/2025 (Approximate), Expires: 06/02/2026 [facility] Comment on above: Expected: 06/02/2025 (Approximate), Expires: 06/02/2026 Start: 06-02-2025 End: 06-02-2026 CBC W Auto Differential panel - Blood CBC and differential Lab Routine Cigarette nicotine dependence without complication Expected: 06/02/2025 (Approximate), Expires: 06/02/2026 [facility] Work Phone: Comment on above: Expected: 06/02/2025 (Approximate), Expires: 06/02/2026 Start: 06-02-2025 End: 06-02-2026 Comprehensive metabolic 2000 panel - Serum or Plasma Comprehensive metabolic panel Lab Routine Primary hypertension Coronary artery disease involving [place] cro[place] coronary artery of [place] heart without angina pectoris Type 2 diabetes mellitus without complication, without long-term current use of insulin (HCC) Hyperlipidemia, mixed Expected: 06/02/2025 (Approximate), Expires: 06/02/2026 [facility] Comment on above: Expected: 06/02/2025 (Approximate), Expires: 06/02/2026 Start: 06-02-2025 End: 06-02-2026 Lipid 1996 panel - Serum or Plasma Lipid panel Lab Routine Hyperlipidemia, mixed Expected: 06/02/2025 (Approximate), Expires: 06/02/2026 [facility] Comment on above: Expected: 06/02/2025 (Approximate), Expires: 06/02/2026 Start: 06-02-2025 End: 06-02-2026 Microalbumin/Creatinine panel in random Urine Microalbumin / creatinine, urine ratio Lab Routine Primary hypertension Type 2 diabetes mellitus without complication, without long-term current use of insulin (HCC) Expected: 06/02/2025 (Approximate), Expires: 06/02/2026 [facility] Comment on above: Expected: 06/02/2025 (Approximate), Expires: 06/02/2026 Start: 06-02-2025 End: 06-02-2026 PSA, total and free PSA, total and free Lab Routine Rising PSA level Expected: 06/02/2025 (Approximate), Expires: 06/02/2026 [facility] Comment on above: Expected: 06/02/2025 (Approximate), Expires: 06/02/2026 Start: 06-02-2025 End: 06-02-2026 Urinalysis complete panel - Urine Urinalysis with reflex microscopic (clean catch) Lab Routine Primary hypertension Type 2 diabetes mellitus without complication, without long-term current use of insulin (HCC) Cigarette nicotine dependence without complication Expected: 06/02/2025 (Approximate), Expires: 06/02/2026 [facility] Comment on above: Expected: 06/02/2025 (Approximate), Expires: 06/02/2026 Start: 06-02-2025 End: 06-02-2025 [facility] Comment on above: Primary hypertension (Primary Dx); Coronary artery disease involving [place] cro[place] coronary artery of [place] croix heart without angina pectoris ; Type 2 diabetes mellitus without complication, without long-term current use of insulin (HCC); Class 1 obesity due to excess calories with serious comorbidity in adult, unspecified BMI; Cigarette nicotine dependence without complication; Rising PSA level; Hyperlipidemia, mixed Start: 06-01-2025 Hemoglobin A1c measurement Diabetes: Hemoglobin A1C [facility] Start: 05-23-2025 Glaucoma screening Diabetes: R etinopathy Screening [facility] Start: 05-06-2025 Urine screening for protein Diabetes: Urine Protein Screening [facility] Start: 02-24-2025 End: 02-24-2025 Patient encounter procedure [facility] Comment on above: Coronary artery dise ase involving [place] croix coronary artery of [place] croix heart without angina pectoris (CMS/HCC) (Primary Dx); [...] Nuclear Medicine Routine Coronary artery disease involving [place] coronary artery of [place] cro[place] heart without angina pectoris (CMS/HCC) Primary hypertension (CMS/HCC) Cigarette nicotine dependence without complication Hyperlipidemia, mixed (CMS/HCC) Family history of early CAD Expected: 12/02/2024 (Approximate), Expires: 12/02/2026 [facility] [employer] Work Phone: Comment on above: Expected: 12/02/2024 (Approximate), Expires: 12/02/2026 Start: 12-02-2024 End: 12-02-2024 Patient encounter procedure [facility] Comment on above: Multiple pulmonary n odules (Primary Dx); Type 2 diabetes mellitus without complications (CMS/HCC); Centrilobular emphysema (CMS/HCC); Coronary artery disease involving [place] cro[place] coronary artery of [place] croix heart without angina pectoris (CMS/HCC); Primary hypertension (CMS/HCC); Elevated PSA; Benign prostatic hyperplasia, unspecified whether lower urinary tract symptoms present; Cigarette nicotine dependence without complication; Hyperlipidemia, mixed (CMS/HCC); Class 1 obesity due to excess calories with serious comorbidity in adult, unspecified BMI Start: 11-06-2024 Hemoglobin A1c measurement Diabetes: Hemoglobin A1C [facility] Start: 07-29-2024 MR prostate wo con MR prostate wo co n [facility] Start: 07-29-2024 MR Prostate WO contrast [facility] Start: 07-15-2024 End: 07-15-2025 CT Chest for screening WO contrast Lung screening follow up CT chest wo IV contrast Imaging Routine Lung nodule, multiple Expected: 07/15/2024 (Approximate), Expires: 07/15/2025 [facility] [employer] Work Phone: Comment on above: Expected: 07/15/2024 (Approximate), Expires: 07/15/2025 Start: 06-03-2024 End: 06-03-2024 Patient encounter procedure 06/03/2024 8:40 AM EDT Office Visit [facility] [address] [place] [id number] Mildred Corral NP [address] [place] [id number] Centrilobular emphysema (CMS/HCC) [facility] Comment on above: Centrilobular emphys susan (CMS/HCC) Start: 12-05-2023 Screening for malign ant neoplasm of colon [facility] Start: 1955 Screening for malign ant neoplasm of colon [facility] Immunizations Immunization Date Immunization Notes Care Provider Fa cility 01-24-2022 Pfizer Paredes Cap SARS-CoV-2 Vaccination Mildred Corral POSTAGE MACHINE OPERATOR Work Phone: [facility] 01-24-2022 SARS-CoV-2, Unspecified Mildred Corral POSTAGE MACHINE OPERATOR Work Phone: [facility] 03-20-2021 Pfizer Purple Cap SARS-CoV-2 Vaccination Mildred Corral POSTAGE MACHINE OPERATOR Work Phone: [facility] 03-15-2021 SARS-CoV-2 (COVID-19 ) mRNA BNT-162b2 vacony SU [facility] 02-27-2021 SARS-CoV-2 (COVID-19 ) mRNA BNT-162b2 alejandro SU [facility] Payers Date Payer Category Payer [facility] [id number] 2024 Unknown [id number] 2024 Unknown [id number] 2024 Self-pay 2024 Medicare [id number] 2021 Private Health Insurance [id number] 1959 Private Health Insurance [id number] 1953 Unknown [id number] [id number]. 2.593 1953 Unknown [id number] 2.16.840.1.996701.3.579. 2.593 1953 Unknown [id number] 2.16.840.1.572406.3.579. 2.593 1953 Unknown [id number] 2.16.840.1.508881.3.579. 2.593 1953 Unknown [id number] 2.16.840.1.201559.3.579. 2.593 1953 Unknown [id number] 2.16.840.1.206681.3.579. 2.593 1953 Unknown [id number] 2.16.840.1.235499.3.579. 2.727 1953 Unknown [id number] 2.16.840.1.960379.3.579. 2.727 1953 Unknown [id number] 2.16.840.1.232170.3.579. 2.727 1953 Unknown [id number] 2.16.840.1.821756.3.579. 2.727 1953 Unknown [id number] 2.16.840.1.255670.3.579. 2.1259 1953 Unknown [id number] 2.16.840.1.163859.3.579. 2.1259 1953 Unknown [id number] 2.16.840.1.243190.3.579. 2.1259 1953 Unknown [id number] 2.16.840.1.552860.3.579. 2.1259 Unknown [id number] 2.16.840.1.099046.3.579. 2.531 Unknown [id number] 2.16.840.1.503033.3.579. 2.531 Social History Date Type Detail Facility Tobacco Unknown if ever smoked [facility] Comment on above: 1 10/10 ppd cigarettes Start: 06-03-2024 End: 06-02-2025 Sex Assigned At Male [facility] Start: 1955 Sex Assigned At Male [facility] Start: 12-04-2023 End: 06-03-2024 Tobacco smoking status KYIS Smokes tobacco daily [facility] History of [...] Status Entered [facility] Functional Status Date Assessment Result Facility 06-25-2024 Functional Status N/A [facility] Clinical Notes 02-24-2022 to 06-02-2025 Mildred Corral NP - 06/02/2025 8:40 AM Jose Corral NP - 06/02/2025 6:22 AM MITCHELLRay Davilaclifton, POSTAGE MACHINE OPERATOR - 06/02/2025 6:21 AM MITCHELLRay Daviladodieheydi, CARLA - 06/02/2025 6:21 AM EDTPatient Instructions Note [...] compliance problems. There is no history of CAD/AR, heart failure or PVD. SUBJECTIVE: MEDICATIONS: Current [...] of the risks of continued smoking: stroke, AR, all forms of cancer, lung disease, and [...] of the risks of continued smoking: stroke, AR, all forms of cancer, lung disease, and [...] Current med: lisinopril documented in this encounter [facility] 04-22-2025 Telephone encounter Note Please let pt know that I did speak to [place] on 04/17/25, they will not approve to combo stress test of treadmill and nuclear imaging, but they will approve a plain treadmill stress test, is he ok with doing this to start with? [place] [facility] 04-22-2025 Miscellaneous Notes Please let pt know that I did speak to [place] on 04/17/25, they will not approve to combo stress test of treadmill and nuclear imaging, but they will approve a plain treadmill stress test, is he ok with doing this to start with? [place] documented in this encounter [facility] 02-24-2025 History of Present illness Narrative Associated [...] being taken. He does not see a office helper clerical.Eye exam is current. Hypertension This is a [...] There is no history of kidney disease, CAD/AR, PVD or retinopathy. SUBJECTIVE: MEDICATIONS: Current Outpatient [...] History: Diagnosis Date CAD (coronary artery disease) ([facility]) 12/04/2023 Cigarette nicotine dependence without complication 12/04/2023 History of adenomatous polyp of colon 12/04/2023 Hyperlipidemia, mixed ([facility]) 12/04/2023 Hypertension ([facility]) 12/04/2023 Kidney stone on left side 12/04/2023 [...] of the risks of continued smoking: stroke, AR, all forms of cancer, lung disease, and [...] of the risks of continued smoking: stroke, AR, all forms of cancer, lung disease, and [...] factors for CAD documented in this encounter [facility] 12-16-2024 Note Patient Education Pulmonary Medicine Health [...] of Health and Human Services: www.smokefree.gov ??? [place] [employer]: www.freedomfromsmoking.org ??? [place] [employer]: www.heart.org Where to find more [...] provider. Document Revised: 09/27/2022 Document Reviewed: 09/27/2022 [employer] Patient Education ? 2023 [employer]. [facility] 12-02-2024 History of Present illness Narrative Associated [...] compliance problems. There is no history of CAD/AR, heart failure or PVD. Diabetes He presents [...] being taken. He does not see a office helper clerical.Eye exam is current. SUBJECTIVE: MEDICATIONS: Current Outpatient [...] History: Diagnosis Date CAD (coronary artery disease) ([facility]) 12/04/2023 Cigarette nicotine dependence without complication 12/04/2023 History of adenomatous polyp of colon 12/04/2023 Hyperlipidemia, mixed ([facility]) 12/04/2023 Hypertension ([facility]) 12/04/2023 Kidney stone on left side 12/04/2023 Lumbar radiculopathy Osteoarthritis of both hips, unspecified osteoarthritis type 12/04/2023 Pancreatitis 12/04/2023 Tobacco user 12/04/2023 Type 2 diabetes mellitus ([facility]) 12/04/2023 History reviewed. No pertinent surgical history. [...] Addressed This Visit CAD (coronary artery disease) ([facility]) Calcifications noted on chest CT Current meds: asa, statin, yadira Strong family hx of CAD No active chest pain Will order stress test Relevant Orders Stress test with myocardial perfusion Type 2 diabetes mellitus without complications ([facility]) - Primary Check blood sugars daily, notify [...] (Hb A1C) docked device (Completed) Hyperlipidemia, mixed ([facility]) On statin therapy Check labs yearly, and prn dose changes Relevant Orders Stress test with myocardial perfusion Cigarette nicotine dependence without complication The patient has been advised of the risks of continued smoking: stroke, AR, all forms of cancer, lung disease, and . Options for quitting smoking include: cold turkey, hypnosis, acupuncture, nicotine replacement meds (gum, lozenges, and patches), Buproprion, and Varenicline. At this time pt is encouraged to evaluate their goals for wanting to quit smoking, and reach out to provider when ready to start this process Relevant Orders Stress test with myocardial perfusion Primary hypertension ([facility]) Please check blood pressure daily and record [...] of the risks of continued smoking: stroke, AR, all forms of cancer, lung disease, and . Options for quitting smoking include: cold turkey, hypnosis, acupuncture, nicotine replacement meds (gum, lozenges, and patches), Buproprion, and Varenicline. At this time pt is encouraged to evaluate their goals for wanting to quit smoking, and reach out to provider when ready to start this process Associated Problem(s): Type 2 diabetes mellitus without complications ([facility]) Check blood sugars daily, notify if <70 [...] Current meds: flomax Associated Problem(s): Primary hypertension ([facility]) Please check blood pressure daily and record DASH diet Limit caffeine Take medication as directed Contact office if chest pain, pressure, dizziness, shortness of breath, swelling legs Recommend slow position changes Current med: lisinopril Associated Problem(s): CAD (coronary artery disease) ([facility]) Calcifications noted on chest CT Current meds: asa, statin, yadira Strong family hx of CAD No active chest pain Will order stress test Associated Problem(s): Centrilobular emphysema (CMS/HCC) No current daily inhalers for treatment Does continue with smoking Associated Problem(s): Multiple pulmonary nodules Follows with Dr Des Dewitt documented in this encounter [facility] 12-02-2024 Instructions Mildred Corral NP - 12/02/2024 8:40 AM EST Keep appt with Urology Will order stress test at [facility] No medication changes documented in this encounter [facility] 06-25-2024 Hospital Discharge instructions Patient Education 06/25/2024 [...] treatment? Where to find more information [employer] [place] [employer]: www.cancer.org [place] [employer]: www.auanet.org Contact a health care [...] provider. Document Revised: 03/21/2022 Document Reviewed: 03/21/2022 [employer] Patient Education 2023 [employer]. 06/25/2024 13:09:32 Benign Prostatic Hyperplasia Benign Prostatic [...] urethra. Follow these instructions at home: Take jrms-rmq-uhvjciv and prescription medicines only as told by [...] provider. Document Revised: 04/13/2022 Document Reviewed: 04/13/2022 [employer] Patient Education 2023 [employer] Follow Up Care 06/05/2024 09:20:17 With:SENG Carpio APRN, Moni Ferguson, KARISSA, URL Address: When: Unknown Comments:pending MRI [facility] 06-25-2024 Note Urology Office/Clini c Note HPI [...] with voice recognition artificial intelligence software, specifically [employer], [employer] and or [employer]. Substitutions may have occurred due to the [...] proceed w/ MRI. -prostate MRI at [facility]. Pt knows that this could [...] Urnls Dip Stick Auto w/o Microscopy POC 02492 2. BPH (benign prostatic hyperplasia) (N40.0: Benign [...] Father. Immunizations Vaccine (more content not included)... [facility] Comment on above: Result Comment: Elec tronically [...] Where to find more information ? [employer] [place] [employer]: www.cancer.org ? [place] [employer]: www.auanet.org Contact a health care [...] of the rectum. (more content not included)... [facility] 06-03-2024 History of Present illness Narrative Associated [...] of the risks of continued smoking: stroke, AR, all forms of cancer, lung disease, and [...] being taken. He does not see a office helper clerical.Eye exam is current. SUBJECTIVE: MEDICATIONS: Current Outpatient [...] History: Diagnosis Date CAD (coronary artery disease) ([facility]) 12/04/2023 Cigarette nicotine dependence without complication 12/04/2023 History of adenomatous polyp of colon 12/04/2023 Hyperlipidemia, mixed ([facility]) 12/04/2023 Hypertension ([facility]) 12/04/2023 Kidney stone on left side 12/04/2023 Lumbar radiculopathy Osteoarthritis of both hips, unspecified osteoarthritis type 12/04/2023 Pancreatitis 12/04/2023 Tobacco user 12/04/2023 Type 2 diabetes mellitus ([facility]) 12/04/2023 History reviewed. No pertinent surgical [...] Addressed This Visit Type 2 diabetes mellitus ([facility]) A1c in range UTD on eye exam No changes in medications Cigarette nicotine dependence without complication The patient has been advised of the risks of continued smoking: stroke, AR, all forms of cancer, lung disease, and [...] to quit smoking documented in this encounter [facility] 02-24-2022 Hospital Discharge instructions Patient Education [...] Follow these instructions at home: Medicines Take ejhn-bkw-ebrsdaz and prescription medicines only as told by [...] 10/14/2008 Document Revised: 01/06/2020 Document Reviewed: 08/16/2017 [employer] Patient Education 2020 [employer]. 02/24/2022 16:14:46 Sinm-Amen-mi Utereroscopy,Lithotripsy, Stone Extraction, Stent Placement (Custom) [facility] [place], [place] Post-operative Instructions for Ureteroscopy, Laser Lithotripsy, [...] other reasons. If it is to remain computer terminal operator, however, changes of the stent are required [...] arrange for your post-operative appointment (with XRAY) [phone] 02/24/2022 16:12:34 Post Op Patient Instructions - FT (Custom) (CUSTOM) Follow Up Care 02/24/2022 09:52:22 With:Tacos SU Address: [facility] [address] [place] [address]- Business (1) When: Unknown Comments:Office will call for next step [facility] 02-24-2022 Evaluation + Plan note Extrac rita from: Title:Post-anesthesia - General Author:Parker Ramirez DO Date:02/24/22 Plan Transfer/ Discharge: Condition stable. Extracted from: Title:Pre-anesthesia - Adult Author:Parker Fields Jr., DO Date:02/24/22 Plan [employer] ([employer]A) physical status classification: Class III. Anesthetic Preoperative Plan Anesthesia: General. . Anesthetic plan, risks, benefits, and alternatives discussed with the patient and/or family. Patient verbalized understanding. Adverse reactions, complications, and alternatives discujssed. Consent signed and on chart.. [facility] Work Phone: Evaluation note* Diagnosis Lung nodule, multiple- Primary documented in this encounter [facility] HealthcareEvaluation note* Diagnosis Type 2 diabetes mellitus without complication, without long-term current use of insulin (CMS/HCC)- Primary History of adenomatous polyp of colon Personal history of colonic polyps Primary hypertension (CMS/HCC) Unspecified essential hypertension Coronary artery disease involving [place] coronary artery of [place] heart without angina pectoris (CMS/HCC) Cigarette nicotine [...] of insulin (CMS/HCC) documented in this encounter [facility] HealthcareEvaluation note* Diagnosis Type 2 diabetes mellitus without complication, without long-term current use of insulin (CMS/HCC)- Primary History of adenomatous polyp of colon Personal history of colonic polyps Primary hypertension (CMS/HCC) Unspecified essential hypertension Coronary artery disease involving [place] coronary artery of [place] heart without angina pectoris (CMS/HCC) Cigarette nicotine [...] nodule, multiple- Primary documented in this encounter [facility] HealthcareEvaluation note* Diagnosis Primary hypertension (CMS/HCC)- Primary [...] Unspecified essential hypertension Coronary artery disease involving [place] coronary artery of [place] heart without angina pectoris (CMS/HCC) Cigarette nicotine [...] Unspecified essential hypertension documented in this encounter [facility] HealthcareEvaluation note* Diagnosis Type 2 diabetes mellitus without complication, without long-term current use of insulin (CMS/HCC)- Primary History of adenomatous polyp of colon Personal history of colonic polyps Primary hypertension (CMS/HCC) Unspecified essential hypertension Coronary artery disease involving [place] coronary artery of [place] heart without angina pectoris (CMS/HCC) Cigarette nicotine [...] not elsewhere classified Coronary artery disease involving [place] coronary artery of [place] heart without angina pectoris (CMS/HCC) Primary hypertension [...] ischemic heart disease documented in this encounter [facility] HealthcareEvaluation note* Diagnosis Type 2 diabetes mellitus without complication, without long-term current use of insulin (CMS/HCC)- Primary History of adenomatous polyp of colon Personal history of colonic polyps Primary hypertension (CMS/HCC) Unspecified essential hypertension Coronary artery disease involving [place] coronary artery of [place] heart without angina pectoris (CMS/HCC) Cigarette nicotine [...] not elsewhere classified Coronary artery disease involving [place] coronary artery of [place] heart without angina pectoris (CMS/HCC) Primary hypertension [...] tract symptoms present documented in this encounter [facility] HealthcareEvaluation note* Diagnosis Type 2 diabetes mellitus without complication, without long-term current use of insulin- Primary History of adenomatous polyp of colon Personal history of colonic polyps Primary hypertension (CMS/HCC) Unspecified essential hypertension Coronary artery disease involving [place] coronary artery of [place] heart without angina pectoris (CMS/HCC) Cigarette nicotine [...] not elsewhere classified Coronary artery disease involving [place] coronary artery of [place] heart without angina pectoris (CMS/HCC) Primary hypertension [...] unspecified laterality- Primary documented in this encounter [facility] HealthcareEvaluation note* Diagnosis Type 2 diabetes mellitus without complication, without long-term current use of insulin- Primary History of adenomatous polyp of colon Personal history of colonic polyps Primary hypertension (CMS/HCC) Unspecified essential hypertension Coronary artery disease involving [place] coronary artery of [place] heart without angina pectoris (CMS/HCC) Cigarette nicotine [...] not elsewhere classified Coronary artery disease involving [place] coronary artery of [place] heart without angina pectoris (CMS/HCC) Primary hypertension [...] ischemic heart disease Coronary artery disease involving [place] coronary artery of [place] heart without angina pectoris (CMS/HCC)- Primary Primary [...] lower extremity pain documented in this encounter [facility] HealthcareEvaluation note* Diagnosis Type 2 diabetes mellitus without complication, without long-term current use of insulin (HCC)- Primary History of adenomatous polyp of colon Personal history of colonic polyps Primary hypertension Unspecified essential hypertension Coronary artery disease involving [place] coronary artery of [place] heart without angina pectoris Cigarette nicotine dependence [...] not elsewhere classified Coronary artery disease involving [place] coronary artery of [place] heart without angina pectoris Primary hypertension Unspecified [...] ischemic heart disease Coronary artery disease involving [place] coronary artery of [place] heart without angina pectoris- Primary Primary hypertension [...] Unspecified essential hypertension Coronary artery disease involving [place] coronary artery of [place] heart without angina pectoris Type 2 diabetes [...] Narrative No data available for this section [facility] No data available for this section [facility] Summary Purpose Family History No Family History [...] contrast Mildred Corral, CARLA [address] [place] [address] Referral ID Status Reason Start Date Expiration Date V isits Requested Visits Authorized [id number] Pending Review 07/15/2024 01/11/2025 1 1 Additional Source Comments (unrecognized sect ion and content) No Status Records FoundNo Status Records FoundNo Status Records FoundNo Status Records Found INFORMATION SOURCE (unrecogn ized section and content) DATE CREATED AUTHOR 12/23/2022 [facility] DATE CREATED AUTHOR AUTHOR'S ORGANIZ ATION 08/04/2024 [facility] DATE CREATED AUTHOR AUTHOR'S ORGANIZ ATION 12/17/2024 [facility] DATE CREATED AUTHOR AUTHOR'S ORGANIZ ATION 06/03/2025 [facility] EPIC Care Teams (unrecognized sec tion and content) Team Status: Active Member Role Status Dates Mildred Corral Primary Care Provider Active Team Status: Inactive Member Role Status Dates Mildred Corral Primary Care Provide r, Attending Provider Active Start: March 25, 2024 End: March 25, 2024 Urgent Care Physician Relationship Specialty Start Date End Date Pavan Dailey MD [address] [place] [address] PCP - General Family Medicine 11/06/23 Team Status: Inactive Member Role Status Dates Mildred Corral Primary Care Provider Active Sta rt: July 29, 2024 End: July 29, 2024 DANIEL Werner Attending Provider Active Start: July 29, 2024 End: July 29, 2024 Urgent Care Physician Relationship Specialty Start Date End Date Pavan Dailey MD [address] [place] [address] PCP - General Family Medicine 11/06/23 Urgent Care Physician Relationship Specialty Start Date End Date Pavan Dailey MD [address] [place] [phone] PCP - General Family Medicine 11/06/23 Urgent Care Physician Relationship Specialty Start Date End Date Pavan Dailey MD [address] [place] [address] PCP - General Family Medicine 11/06/23 Urgent Care Physician Relationship Specialty Start Date End Date Pavan Dailey MD [address] [place] [phone] PCP - General Family Medicine 11/06/23 Urgent Care Physician Relationship Specialty Start Date End Date Pavan Dailey MD [address] [place] [address] PCP - General Family Medicine 11/06/23 Urgent Care Physician Relationship Specialty Start Date End Date Pavan Dailey MD [address] [place] [address] PCP - General Family Medicine 11/06/23 Urgent Care Physician Relationship Specialty Start Date End Date Pavan Dailey MD [address] [place] [address] PCP - General Family Medicine 11/06/23 Urgent Care Physician Relationship Specialty Start Date End Date Pavan Dailey MD [address] [place] [address] PCP - General Family Medicine 11/06/23 Urgent Care Physician Relationship Specialty Start Date End Date Pavan Dailey MD [address] [place] [phone] PCP - General Family Medicine 11/06/23 Urgent Care Physician Relationship Specialty Start Date End Date Pavan Dailey MD [address] [place] [phone] PCP - General [facility] Medicine 11/06/23 Urgent Care Physician Relationship Specialty Start Date End Date Pavan Dailey MD [address] [place] [phone] PCP - General Family Medicine 11/06/23 Mildred Corral NP [address] [place] [address] PCP - [employer] 01/07/25 Urgent Care Physician Relationship Specialty Start Date End Date Pavan Dailey MD [address] [place] [phone] PCP - General Family Medicine 11/06/23 Mildred Corral NP [address] [place] [phone] PCP - [employer] 01/07/25 Urgent Care Physician Relationship Specialty Start Date End Date Pavan Dailey MD [address] [place] [phone] PCP - General Family Medicine 11/06/23 Mildred Corral NP [address] [place] [address] PCP [facility] 01/07/25 Urgent Care Physician Relationship Specialty Start Date End Date Pavan Dailey MD [address] [place] [phone] PCP - General [facility] Medicine 11/06/23 Mildred Corral NP [address] [place] [phone] PCP [facility] 01/07/25 Urgent Care Physician Relationship Specialty Start Date End Date Pavan Dailey MD [address] [place] [address] PCP - General [facility] 11/06/23 Mildred Corral NP [address] [place] [address] Counts include 234 beds at the [facility] 01/07/25 Goals (unrecognized section and content) [...] BE BASED ON THE PRIMARY CLINICAL RECORDS. [email or web address] provides no warranty or guarantee of the accuracy or completeness of information in this document.
[2025-06-15 13:20] LABS: Glucose Urine UA NEGATIVE (NEGATIVE)
[2025-06-15 13:27] LABS: Microalbum Creatinine Ratio Ur 11.7 mg/g (0.0-29.9)
== END 2025-06-15 12:49 | disposition home or self-care (01) ==
PROVIDERS: PCP Nurse Practitioner; Visit Provider Nurse Practitioner
DX: E78.2 Mixed hyperlipidemia (principal); I10 Essential (primary) hypertension; F17.210 Nicotine dependence, cigarettes, uncomplicated; I25.10 Atherosclerotic heart disease of native coronary artery without angina pectoris; E11.9 Type 2 diabetes mellitus without complications; R97.20 Elevated prostate specific antigen [PSA]
CPT/HCPCS: 81003; 82043; 82570

== ENCOUNTER 2025-06-23 08:25 | Outpatient (OUT) | payer BC, SELFPAY ==
--- OUTSIDE RECORDS SUMMARY | 2025-06-23 08:34 | XMS_ITS | CCD ---
Author Organization [facility] Care Team Providers Care Child Psychologist Name Role Phone MILDRED CORRAL Primary Care Physician AICHHOLZ, SOLAR SYSTEMS DESIGNER MILDRED Admitting Unavailable AICHHOLZ, SOLAR SYSTEMS DESIGNER MILDRED Attending Unavailable AICHHOLZ, SOLAR SYSTEMS DESIGNER MILDRED Primary Care Unavailable AICHHOLZ, SOLAR SYSTEMS DESIGNER MILDRED Consulting Unavailable AICHHOLZ, SOLAR SYSTEMS DESIGNER MILDRED Admitting Unavailable AICHHOLZ, SOLAR SYSTEMS DESIGNER MILDRED Attending Unavailable AICHHOLZ, SOLAR SYSTEMS DESIGNER MILDRED Primary Care Unavailable AICHHOLZ, SOLAR SYSTEMS DESIGNER MILDRED Consulting Unavailable PATRICK VAZQUEZ Consulting Unavailable AICHHOLZ, SOLAR SYSTEMS DESIGNER MILDRED Admitting Unavailable AICHHOLZ, SOLAR SYSTEMS DESIGNER MILDRED Attending Unavailable AICHHOLZ, SOLAR SYSTEMS DESIGNER MILDRED Primary Care Unavailable SU ., DR BALDERRAMA Admitting Unavailable SU ., DR BALDERRAMA Attending Unavailable AICHHOLZ, SOLAR SYSTEMS DESIGNER MILDRED Primary Care Unavailable SU ., DR BALDERRAMA Consulting Unavailable SAAB, MARSHA Consulting Unavailable SU ., DR BALDERRAMA Admitting Unavailable SU ., DR BALDERRAMA Attending Unavailable AICHHOLZ, SOLAR SYSTEMS DESIGNER MILDRED Primary Care Unavailable SU ., DR BALDERRAMA Consulting Unavailable PITTSTON, DR YAIMA Hughes Consulting Unavailable LAURA NEGRON Consulting Unavailable TAMLYN ., SARTHAK Admitting Unavailable TAMLYN ., SARTHAK Attending Unavailable AICHHOLZ, SOLAR SYSTEMS DESIGNER MILDRED Primary Care Unavailable TAMLYN ., SARTHAK Consulting Unavailable OFELIA BOONE Consulting Unavailable CARIDAD MILLER Consulting Unavailable Mildred Corral Primary Care Provider Mildred Corral Attending Provider Pavan Dailey MD Primary Care Provider [phone] Mildred Corral Primary Care Provider [phone] DANIEL Carpio Attending Provider [phone] Moni Carpio Admitting Unavailable Moni Carpio Attending [...] complication, without long-term current use of insulin ([facility]) Take 1 tablet (80 mg) by mouth [...] Start: 01-17-2022 take 1 capsule by mo kyh once daily tamsulosin 0.4 mg Cap 0.4 mg = 1 cap(s), Oral, Daily, # 30 cap(s), Refills(s) 8, Pharmacy: [facility], 180, cm, 01/17/22 [...] Coronary arteriosclerosis; 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: [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] Onset: 12-04-2023 [...] 12-04-2023 02-24-2022 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; 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: [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 USE ORAL HYPOGLYCEMIC DX] Onset: 12-06-2022 Episodic [...] 02-24-2022 02-24-2022 Episodic Other aftercare (1 source) alf (current) use of anticoagulants; 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: [PRISON CURRNT USE ANTICOAGULANTS] Onset: 03-01-2022 Episodic Other [...] Interpretation and review of laboratory results Abnormal [facility] - Hematology and Cell countson 06-02-2025 HbA1c (Bld) [Mass fraction] 5.9 % [facility] Ambulatory Visit Summaryon 0 12-16-2024 Ambulatory Visit [...] AM EDT With: Where: [facility] [address] [phone] 8:20 AM EDT With: PRASHANT CORTES PA-C Where: [facility] [address] [phone]- You Need to Schedule the Following Appointments Follow Up with PRASHANT CORTES PA-C, URL When: In 1 year Where: [address] [place] [address] Medications What How Much When Instructions Changed tamsulosin (tamsulosin 0.4 mg Cap) 1 Capsules By Mouth Every day Duration: 90 Days Pickup at [facility] Unchanged aspirin (Aspirin [...] physician if questions or concerns Pharmacy Information [facility]: [address] [place], [place] [id number] [phone] Allergies No Known Allergies Problems Ongoing - [...] children increases the risk of: ??? Sudden infant syndrome (SIDS). ??? Infections in the nose, throat, or airways (respi (more content not included)... Normal [facility] Urology Office/Clinic Noteon 12-16-2024 Urology Office/Clinic Note [...] E&M of Est. 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 [address] Additional Instructions: Patient Education Health [...] 10:50:00) Gluco (more content not included)... Normal [facility] Comment on above: Result Comment: Elec tronically Signed By: SOPHIA DIEZ, PRASHANT Gonzalez\.br\Date and Time Signed: 12/16/24 11:36 EDT MHPT PSA, DIAGNOSTICon 12-07 PROSTATE SPECIFIC ANTIGEN DX 0.56 ng/mL NINF - 4.00 ng/mL [facility] HbA1c (Bld) [Mass fraction]o n 12-02-2024 Interpretation and review of laboratory results Normal [facility] - Hematology and Cell countson 12-02-2024 HbA1c (Bld) [Mass fraction] 5.6 % [facility] Healthcare Provider Letteron 11-21-2024 Provider Letter Provider Letter November 21, 2024 HAKEEM STARK [address] [place] [phone] : 1955 Dear Hakeem, We have been [...] attention to this matter. Sincerely, [facility] [place] [address] [facility] CT CHEST WO CONon 11-11-2024 [place] [address] CT Scan Report Signed Patient: HAKEEM STARK MR#: [id number] : 1955 Acct:[id number] Age/Sex: 69 / M ADM Date: 11/11/24 Loc: CT Attending Dr: Neris Zavala D.O. Ordering Physician: Neris Zavala D.O. Date of Service: 11/11/24 Procedure(s): CT chest wo con Accession Number(s): [id number] cc: Mildred Corral NP [place] [id number] Patient Name: HAKEEM STARK MRN: [facility]:[id number] date: 1955 Sex: M Assigned Patient Location: CT Current Patient Location: CT Accession/Order Number: [id number] Exam Date: 11/11/2024 07:40 Report Date: 11/11/2024 [...] screening is recommended. Electronically authenticated by: ARISTEO HPAN Date: 11/11/2024 16:39 Dictated By: Aristeo Phan M.D. Signed By: 11/11/24 1641 DD/ 1639 TD/TT: Senior Buyer: [facility] Radiology, Radiologist, - 11/11/2024 [place] [address] CT Scan Report Signed Patient: HAKEEM STARK MR#: [id number] : 1955 Acct:[id number] Age/Sex: 69 / M ADM Date: 11/11/24 Loc: CT Attending Dr: Neris Zavala D.O. Ordering Physician: Neris Zavala D.O. Date of Service: 11/11/24 Procedure(s): CT chest wo con Accession Number(s): [id number] cc: Mildred Corral NP [place] [id number] Patient Name: HAKEEM STARK MRN: [facility]:[id number] date: 1955 Sex: M Assigned Patient Location: CT Current Patient Location: CT Accession/Order Number: [id number] Exam Date: 11/11/2024 07:40 Report Date: 11/11/2024 [...] Signed By: 11/11/24 1641 DD/ 1639 TD/TT: Senior Buyer: [facility] Radiology Study observation (narrative) [facility] CT CHEST WO CONOrdered By: Jerry adiologdinh Radiology on 11-11-2024 [facility] Work Phone: MR prostate wo conon 024 MR prostate wo con [facility] [address] [place] [address] MRI Report Signed Patient: Hakeem Stark MR#: [id number] : 1955 Acct:[id number] Age/Sex: 69 / M ADM Date: 07/29/24 Loc: MR Room: Type: [facility] Attending Dr: Moni SANCHEZ Copies to: [...] 1231 Signed By: 07/31/24 1248 Normal [facility] ISTAT XRay CREon 07-29-2024 ISTAT GFR > 60.0 Normal [facility] Comment on above: Result Comment: PERF ORMED BY: [place] [address] PATHOLOGIST MANAGER MARITIME ONEYDA GUEVARA M.D. Performed By: #### I SCRE #### [facility] [address] [place] [address] No Panel InformationOrdered By: Moni Carpio on 07-29-2024 Bedside Estimated GFR (eGFR) > 60.0 [facility] Whole blood creatinine measu rementOrdered By: Moni Carpio on 07-29-2024 Creatinine [Mass/Vol] 1.0 mg/dL Normal 0.6-1.3 [facility] Comment on above: ER/ESD physician is notified/shown all ISTAT results.Critical values may be confirmed by laboratory testing ifdeemed necessary by ER attending doctor. Result Comment: ER/E SD physician is notified/shown all ISTAT results. Critical values may be confirmed by laboratory testing if deemed necessary by ER attending doctor. Performed By: #### I SCRE #### [facility] [address] [place] [address] Ambulatory Visit Summaryon 0 06-25-2024 Ambulatory Visit [...] Following Appointments Follow Up with Balaji GARCIAN, DATA SECURITY ANALYST-C, Moni X, FAM, URL When: Comments: pending [...] tract infectio (more content not included)... Normal [facility] Capillary blood glucose alex urement by glucometer (mass/volume)Ordered By: Mildred Corral on 03-25-2024 Glucose [Mass/Vol] 130 mg/dL Normal [facility] Comment on above: Random Glucose Refer ence Range is dependent on time and content of last meal. Glucose of more than 200 mg/dL in a nonstressed, ambulatory subject supports the diagnosis of Diabetes Mellitus. Result Comment: [place] Glucose Reference Range is dependent on time and content of last meal. Glucose of more than 200 mg/dL in a nonstressed, ambulatory subject supports the diagnosis of Diabetes Mellitus. PERFORMED BY: [facility] [address] [place] [address] PATHOLOGIST MANAGER MARITIME ONEYDA GUEVARA M.D. Performed By: #### G LU #### Point of Care testing , PET tumor init tx strat sb-m [place] 03-25-2024 PET tumor init tx strat sb-mt [facility] [address] [place] [address] Nuclear Medicine Report Signed Patient: Hakeem Stark MR#: [id number] : 1955 Acct:[id number] Age/Sex: 68 / M ADM Date: 03/25/24 Loc: Room: Type: [facility] Attending Dr: Mildred Corral Copies to: Galen [...] Wadsworth Jr., D.O.03/25/2024 11:58 AM Dictation Location: [place] [address] Transcribed By: [facility] 03/25/24 1158 Dictated By: Galen Wadsworth Jr, DO 03/25/24 1150 Signed By: 03/25/24 1158 Normal [facility] Glucose Poct Glucometerson 0 03-18-2024 Glucose [Mass/Vol] 115 mg/dL Normal [facility] Comment on above: Result Comment: [facility] Glucose Reference Range is dependent on time and content of last meal. Glucose of more than 200 mg/dL in a nonstressed, ambulatory subject supports the diagnosis of Diabetes Mellitus. PERFORMED BY: [facility] [place] [address] PATHOLOGIST MANAGER MARITIME ONEYDA GUEVARA M.D. Performed By: #### G [...] Please consider referral for smoking cessation to [facility] Medication Therapy Management (MTM) if [...] two extremes (Agatston score 101-1000). [email or web address]://pubs.rsna.o rg/doi/abs/10.1148/ radiol.62550786 Electronically authenticated by: PATRICK VAZQUEZ Date: 2022-11-05 20:06 Normal [facility] GLYCOHEMOGLOBIN A1Con 2022 ADA RECOMMENDATION SEE BELOW Normal [facility] Comment on above: Result Comment: ADA RECOMMENDED LIMIT 4.0 - 6.0 ADA THERAPEUTIC TARGET < 7.0 ACTION SUGGESTED > 7.0 Performed By: #### A 1C #### [facility] [address] [place] [address] Dr. Gigi To Glucose [Mass/Vol] 117 mg/dL Normal [facility] Comment on above: Performed By: #### A 1C #### [facility] [address] [place] [address] [address] Gigi To HbA1c (Bld) [Mass fraction] 5.7 % Normal 4.5-6.2 [facility] Comment on above: Performed By: #### A 1C #### [facility] [address] [place] [address] Dr. Gigi To PROF CHEM 8 (BAS METB)on Anion gap [Moles/Vol] 16.1 mmol/L Normal [facility] Comment on above: Performed By: #### B MP #### [facility] [address] [place] [address] Dr. Gigi To Calcium [Mass/Vol] 9.4 mg/dL Normal 8.5-10.1 [facility] Comment on above: Performed By: #### B MP #### [facility] [address] [place] [address] Dr. Gigi To Chloride [Moles/Vol] 105 mmol/L Normal 98-107 [facility] Comment on above: Performed By: #### B MP #### [facility] [address] [place] [address] [address] Gigi To CO2 [Moles/Vol] 25.8 mmol/L Normal 21.0-32.0 [facility] Comment on above: Performed By: #### B MP #### [facility] [address] [place] [address] [address] Gigi To Creatinine [Mass/Vol] 1.02 mg/dL Normal 0.70-1.30 [facility] Comment on above: Performed By: #### B MP #### [facility] [address] [place] [address] [address] Gigi To EGFR-AF [facility] >60 Normal >=60 [facility] Comment on above: Performed By: #### B MP #### [facility] [address] [place] [address] [address] Gigi To EGFR-NON AF [facility] >60 Normal >=60 [facility] Comment on above: Performed By: #### B MP #### [facility] [address] [place] [address] [address] Gigi To Glucose [Mass/Vol] 109 mg/dL Critically high 74-106 [facility] Comment on above: Performed By: #### B MP #### [facility] [address] [place] [address] [address] Gigi To Potassium [Moles/Vol] 4.9 mmol/L Normal 3.5-5.1 [facility] Comment on above: Performed By: #### B MP #### [facility] [address] [place] [address] [address] Gigi To Sodium [Moles/Vol] 142 mmol/L Normal 136-145 [facility] Comment on above: Performed By: #### B MP #### [facility] [address] [place] [address] [address] Gigi To Urea nitrogen [Mass/Vol] 25.0 mg/dL Critically high 7.0-18.0 [facility] Comment on above: Performed By: #### B MP #### [facility] [address] [place] [address] Dr. Gigi To Urea nitrogen/Creatinine [Mass ratio] 24.5 mg/mg Normal [facility] Comment on above: Performed By: #### B MP #### [facility] [address] [place] [address] Dr. Gigi To CBC AUTO DIFFon 03-19-2022 BASO # 0.1 103/ul Normal 0.0-0.1 [facility] Comment on above: Performed By: #### C BC #### [facility] [address] [place] [address] Dr. Gigi To Basophils/100 WBC (Bld) 0.5 % Normal 0.2-2.0 [facility] Comment on above: Performed By: #### C BC #### [facility] [address] [place] [address] Dr. Gigi To EO # 0.3 103/ul Normal 0.0-0.7 [facility] Comment on above: Performed By: #### C BC #### [facility] [address] [place] [address] Dr. Gigi To Eosinophils/100 WBC (Bld) 2.7 % Normal 0.9-7.0 [facility] Comment on above: Performed By: #### C BC #### [facility] [address] [place] [address] Dr. Gigi To Erythrocyte distribution width (RBC) [Ratio] 14.0 % Normal 11.0-15.0 [facility] Comment on above: Performed By: #### C BC #### [facility] [address] [place] [address] Dr. Gigi oT Hematocrit (Bld) [Volume fraction] 43.7 % Normal 42.0-54.0 [facility] Comment on above: Performed By: #### C BC #### [facility] [address] [place] [address] Dr. Gigi To Hemoglobin (Bld) [Mass/Vol] 14.4 g/dL Normal 14.0-18.0 [facility] Comment on above: Performed By: #### C BC #### [facility] [address] [place] [address] Dr. Gigi To IG # 0.03 10e3/ul Normal 0.00-0.03 [facility] Comment on above: Performed By: #### C BC #### [facility] [address] [place] [address] Dr. Gigi To IG % 0.3 % Normal 0.0-0.5 [facility] Comment on above: Performed By: #### C BC #### [facility] [address] [place] [address] Dr. Gigi To LYMPH # 2.9 103/ul Normal 1.2-3.8 [facility] Comment on above: Performed By: #### C BC #### [facility] [address] [place] [address] Dr. Gigi To Lymphocytes/100 WBC (Bld) 29.4 % Normal 20.5-60.0 [facility] Comment on above: Performed By: #### C BC #### [facility] [address] [place] [address] Dr. Gigi To MANUAL DIFF REQ NO Normal [facility] Comment on above: Performed By: #### C BC #### [facility] [address] [place] [address] Dr. Gigi To MCH (RBC) [Entitic mass] 32.2 pg Normal 25.9-34.0 [facility] Comment on above: Performed By: #### C BC #### [facility] [address] [place] [address] Dr. Gigi To MCHC (RBC) [Mass/Vol] 33.0 g/dL Normal 29.9-35.2 [facility] Comment on above: Performed By: #### C BC #### [facility] [address] [place] [address] Dr. Gigi To MCV (RBC) [Entitic vol] 97.8 fL Critically high 80.0-94.0 [facility] Comment on above: Performed By: #### C BC #### [facility] [address] [place] [address] [address] Gigi To MONO # 0.8 103/ul Normal 0.3-0.8 [facility] Comment on above: Performed By: #### C BC #### [facility] [address] [place] [address] [address] Gigi To Monocytes/100 WBC (Bld) 8.6 % Normal 1.7-12.0 [facility] Comment on above: Performed By: #### C BC #### [facility] [address] [place] [address] Dr. Gigi To NEUT # 5.7 103/ul Normal 1.4-6.5 [facility] Comment on above: Performed By: #### C BC #### [facility] [address] [place] [address] Dr. Gigi To Neutrophils/100 WBC (Bld) 58.5 % Normal 43.0-75.0 [facility] Comment on above: Performed By: #### C BC #### [facility] [address] [place] [address] Dr. Gigi To Platelet mean volume (Bld) [Entitic vol] 8.7 fL Critically low 9.5-13.5 [facility] Comment on above: Performed By: #### C BC #### [facility] [address] [place] [address] Dr. Gigi To PLT 280 103/ul Normal 150-450 [facility] Comment on above: Performed By: #### C BC #### [facility] [address] [place] [address] Dr. Gigi To RBC 4.47 106/ul Critically low 4.70-6.10 [facility] Comment on above: Performed By: #### C BC #### [facility] [address] [place] [address] Dr. Gigi To WBC 9.8 103/ul Normal 4.0-11.0 [facility] Comment on above: Performed By: #### C BC #### [facility] [address] [place] [address] Dr. Gigi To GLYCOHEMOGLOBIN A1Con 2021 ADA RECOMMENDATION SEE BELOW Normal [facility] Comment on above: Result Comment: ADA RECOMMENDED LIMIT 4.0 - 6.0 ADA THERAPEUTIC TARGET < 7.0 ACTION SUGGESTED > 7.0 Performed By: #### A 1C #### [facility] [address] [place] [address] Dr. Gigi To Glucose [Mass/Vol] 126 mg/dL Normal [facility] Comment on above: Performed By: #### A 1C #### [facility] [address] [place] [address] [address] Gigi To HbA1c (Bld) [Mass fraction] 6.0 % Normal 4.5-6.2 [facility] Comment on above: Performed By: #### A 1C #### [facility] [address] [place] [address] Dr. Gigi To LIPID PROFILEon 03-19-2022 CHOL-HDL RATIO NORM SEE BELOW Normal [facility] Comment on above: Result Comment: 3.3 - 4.4 LOW RISK 4.4 - 7.1 AVERAGE RISK 7.1 - 11.0 MODERATE RISK >11.0 HIGH RISK Performed By: #### L IPID, CMP #### [facility] [address] [place] [address] Dr. Gigi To Cholesterol [Mass/Vol] 105 mg/dL Normal <=200 [facility] Comment on above: Performed By: #### L IPID, CMP #### [facility] [address] [place] [address] Dr. Gigi To Cholesterol in HDL [Mass/Vol] 29 mg/dL Critically low 40-60 [facility] Comment on above: Performed By: #### L IPID, CMP #### [facility] [address] [place] [address] Dr. Gigi To Cholesterol in LDL [Mass/Vol] 26.8 mg/dL Normal [facility] Comment on above: Performed By: #### L IPID, CMP #### [facility] [address] [place] [address] Dr. Gigi To Cholesterol.total/Chol esterol in HDL [Mass ratio] 3.6 {ratio} Normal [facility] Comment on above: Performed By: #### L IPID, CMP #### [facility] [address] [place] [address] [address] Gigi To HDL NORMAL > or = 60 mg/dl - LOW CARDIOVASCULAR RISK <40 mg/dl - HIGH CARDIOVASCULAR RISK Normal [facility] Comment on above: Performed By: #### L IPID, CMP #### [facility] [address] [place] [address] [address] Gigi To LDL CALC NORMAL SEE BELOW Normal [facility] Comment on above: Result Comment: <100 mg/dl OPTIMAL 100 - 129 mg/dl NEAR OR ABOVE OPTIMAL 130 - 159 mg/dl BORDERLINE HIGH 160 - 189 mg/dl HIGH >190 mg/dl VERY HIGH Performed By: #### L IPID, CMP #### [facility] [address] [place] [address] [address] Gigi To Triglyceride [Mass/Vol] 246 mg/dL Critically high <=150 [facility] Comment on above: Performed By: #### L IPID, CMP #### [facility] [address] [place] [address] [address] Gigi To VLDL CALC 49.2 mg/dL Normal [facility] Comment on above: Performed By: #### L IPID, CMP #### [facility] [address] [place] [address] [address] Gigi To MICROALBUMIN, RAND URon - mALB 1.5 mg/L Normal <=30.0 [facility] Comment on above: Performed By: #### M ALBR #### [facility] [address] [place] [address] [address] Gigi To PROF 14(COMP METB)on 022 Albumin [Mass/Vol] 3.9 g/dL Normal 3.4-5.0 [facility] Comment on above: Performed By: #### L IPID, CMP #### [facility] [address] [place] [address] [address] Gigi To Albumin/Globulin [Mass ratio] 1.1 {ratio} Normal [facility] Comment on above: Performed By: #### L IPID, CMP #### [facility] [address] [place] [address] Dr. Gigi To ALP [Catalytic activity/Vol] 42 U/L Critically low 46-116 [facility] Comment on above: Performed By: #### L IPID, CMP #### [facility] [address] [place] [address] Dr. Gigi To ALT [Catalytic activity/Vol] 30 U/L Normal 16-63 [facility] Comment on above: Performed By: #### L IPID, CMP #### [facility] [address] [place] [address] Dr. Gigi To Anion gap [Moles/Vol] 14.5 mmol/L Normal [facility] Comment on above: Performed By: #### L IPID, CMP #### [facility] [address] [place] [address] Dr. Gigi To AST [Catalytic activity/Vol] 17 U/L Normal 15-37 [facility] Comment on above: Performed By: #### L IPID, CMP #### [facility] [address] [place] [address] Dr. Gigi To Bilirubin [Mass/Vol] 0.4 mg/dL Normal 0.2-1.0 [facility] Comment on above: Performed By: #### L IPID, CMP #### [facility] [address] [place] [address] Dr. Gigi To Calcium [Mass/Vol] 9.4 mg/dL Normal 8.5-10.1 [facility] Comment on above: Performed By: #### L IPID, CMP #### [facility] [address] [place] [address] Dr. Gigi To Chloride [Moles/Vol] 105 mmol/L Normal 98-107 [facility] Comment on above: Performed By: #### L IPID, CMP #### [facility] [address] [place] [address] Dr. Gigi To CO2 [Moles/Vol] 27.7 mmol/L Normal 21.0-32.0 [facility] Comment on above: Performed By: #### L IPID, CMP #### [facility] [address] [place] [address] Dr. Gigi To Creatinine [Mass/Vol] 1.00 mg/dL Normal 0.70-1.30 [facility] Comment on above: Performed By: #### L IPID, CMP #### [facility] [address] [address] [address] Gigi To EGFR-AF [facility]CIAN >60 Normal >=60 [facility] Comment on above: Performed By: #### L IPID, CMP #### [facility] [address] [place] [address] Dr. Gigi To EGFR-NON AF [facility] >60 Normal >=60 [facility] Comment on above: Performed By: #### L IPID, CMP #### [facility] [address] [place] [address] Dr. Gigi To Globulin (S) [Mass/Vol] 3.5 g/dL Normal [facility] Comment on above: Performed By: #### L IPID, CMP #### [facility] [address] [place] [address] Dr. Gigi To Glucose [Mass/Vol] 108 mg/dL Critically high 74-106 [facility] Comment on above: Performed By: #### L IPID, CMP #### [facility] [address] [place] [address] Dr. Gigi To Potassium [Moles/Vol] 4.2 mmol/L Normal 3.5-5.1 [facility] Comment on above: Performed By: #### L IPID, CMP #### [facility] [address] [place] [address] Dr. Gigi To Protein [Mass/Vol] 7.4 g/dL Normal 6.4-8.2 [facility] Comment on above: Performed By: #### L IPID, CMP #### [facility] [address] [place] [address] Dr. Gigi To Sodium [Moles/Vol] 143 mmol/L Normal 136-145 [facility] Comment on above: Performed By: #### L IPID, CMP #### [facility] [address] [address] [address] Gigi To Urea nitrogen [Mass/Vol] 21.0 mg/dL Critically high 7.0-18.0 [facility] Comment on above: Performed By: #### L IPID, CMP #### [facility] [address] [address] [address] Gigi To Urea nitrogen/Creatinine [Mass ratio] 21.0 mg/mg Normal [facility] Comment on above: Performed By: #### L IPID, CMP #### [facility] [address] [place] [address] Dr. Gigi oT CHEMISTRYOrdered By: Lab ROP User on 02-24-2022 Glucose [Mass/Vol] 119 mg/dL High 55 - 99 mg/dL FTM C POC Subsection Comment on above: Result Comment: Isha priti Meter POC Device SN [id number] Invalid Interpretation Code [facility] POC Subsection POC User ID [id number] Invalid Interpretation Code [facility] POC Subsection POC Username IQRA DODSON Invalid Interpretation Code [facility] POC Subsection XR KUB 1 VIEWon 02-24-2022 [...] YAIMA NOONAN Date: 2022-02-24 07:22 Normal [facility] CBC AUTO DIFFon 02-21-2022 BASO # 0.1 103/ul Normal 0.0-0.1 [facility] Comment on above: Performed By: #### A 1C #### [facility] [address] [place] [address] Dr. Gigi To Basophils/100 WBC (Bld) 0.6 % Normal 0.2-2.0 [facility] Comment on above: Performed By: #### A 1C #### [facility] [address] [place] [address] Dr. Gigi To EO # 0.2 103/ul Normal 0.0-0.7 [facility] Comment on above: Performed By: #### A 1C #### [facility] [address] [place] [address] Dr. Gigi To Eosinophils/100 WBC (Bld) 1.9 % Normal 0.9-7.0 [facility] Comment on above: Performed By: #### A 1C #### [facility] [address] [place] [address] Dr. Gigi To Erythrocyte distribution width (RBC) [Ratio] 14.3 % Normal 11.0-15.0 [facility] Comment on above: Performed By: #### A 1C #### [facility] [address] [place] [address] Dr. Gigi To Hematocrit (Bld) [Volume fraction] 40.4 % Critically low 42.0-54.0 [facility] Comment on above: Performed By: #### A 1C #### [facility] [address] [place] [address] Dr. Gigi To Hemoglobin (Bld) [Mass/Vol] 13.4 g/dL Critically low 14.0-18.0 [facility] Comment on above: Performed By: #### A 1C #### [facility] [address] [place] [address] Dr. Gigi To IG # 0.02 10e3/ul Normal 0.00-0.03 [facility] Comment on above: Performed By: #### A 1C #### [facility] [address] [place] [address] Dr. Gigi To IG % 0.3 % Normal 0.0-0.5 [facility] Comment on above: Performed By: #### A 1C #### [facility] [address] [place] [address] Dr. Gigi To LYMPH # 2.4 103/ul Normal 1.2-3.8 [facility] Comment on above: Performed By: #### A 1C #### [facility] [address] [place] [address] Dr. Gigi To Lymphocytes/100 WBC (Bld) 30.7 % Normal 20.5-60.0 [facility] Comment on above: Performed By: #### A 1C #### [facility] [address] [place] [address] Dr. Gigi To MANUAL DIFF REQ NO Normal [facility] Comment on above: Performed By: #### A 1C #### [facility] [address] [place] [address] Dr. Gigi To MCH (RBC) [Entitic mass] 31.8 pg Normal 25.9-34.0 [facility] Comment on above: Performed By: #### A 1C #### [facility] [address] [place] [address] Dr. Gigi To MCHC (RBC) [Mass/Vol] 33.2 g/dL Normal 29.9-35.2 [facility] Comment on above: Performed By: #### A 1C #### [facility] [address] [place] [address] Dr. Gigi To MCV (RBC) [Entitic vol] 95.7 fL Critically high 80.0-94.0 [facility] Comment on above: Performed By: #### A 1C #### [facility] [address] [place] [address] Dr. Gigi To MONO # 0.8 103/ul Normal 0.3-0.8 [facility] Comment on above: Performed By: #### A 1C #### [facility] [address] [place] [address] Dr. Gigi To Monocytes/100 WBC (Bld) 10.0 % Normal 1.7-12.0 [facility] Comment on above: Performed By: #### A 1C #### [facility] [address] [place] [address] Dr. Gigi To NEUT # 4.4 103/ul Normal 1.4-6.5 [facility] Comment on above: Performed By: #### A 1C #### [facility] [address] [address] [address] Gigi To Neutrophils/100 WBC (Bld) 56.5 % Normal 43.0-75.0 [facility] Comment on above: Performed By: #### A 1C #### [facility] [address] [address] [address] Gigi To Platelet mean volume (Bld) [Entitic vol] 9.1 fL Critically low 9.5-13.5 [facility] Comment on above: Performed By: #### A 1C #### [facility] [address] [place] [address] Dr. Gigi To PLT 256 103/ul Normal 150-450 [facility] Comment on above: Performed By: #### A 1C #### [facility] [address] [place] [address] Dr. Gigi To RBC 4.22 106/ul Critically low 4.70-6.10 [facility] Comment on above: Performed By: #### A 1C #### [facility] [address] [address] [address] Gigi To WBC 7.8 103/ul Normal 4.0-11.0 [facility] Comment on above: Performed By: #### A 1C #### [facility] [address] [place] [address] Dr. Gigi To PROF CHEM 8 (BAS METB)on Anion gap [Moles/Vol] 13.6 mmol/L Normal [facility] Comment on above: Performed By: #### B MP #### [facility] [address] [address] [address] Gigi To Calcium [Mass/Vol] 9.2 mg/dL Normal 8.5-10.1 [facility] Comment on above: Performed By: #### B MP #### [facility] [address] [address] [address] Gigi To Chloride [Moles/Vol] 104 mmol/L Normal 98-107 [facility] Comment on above: Performed By: #### B MP #### [facility] [address] [address] [address] Gigi To CO2 [Moles/Vol] 26.9 mmol/L Normal 21.0-32.0 [facility] Comment on above: Performed By: #### B MP #### [facility] [address] [address] [address] Gigi To Creatinine [Mass/Vol] 0.95 mg/dL Normal 0.70-1.30 [facility] Comment on above: Performed By: #### B MP #### [facility] [address] [address] [address] Gigi To EGFR-AF [facility] >60 Normal >=60 [facility] Comment on above: Performed By: #### B MP #### [facility] [address] [address] [address] Gigi To EGFR-NON AF [facility] >60 Normal >=60 [facility] Comment on above: Performed By: #### B MP #### [facility] [address] [address] [address] Gigi To Glucose [Mass/Vol] 121 mg/dL Critically high 74-106 [facility] Comment on above: Performed By: #### B MP #### [facility] [address] [address] [address] Gigi To Potassium [Moles/Vol] 4.5 mmol/L Normal 3.5-5.1 [facility] Comment on above: Performed By: #### B MP #### [facility] [address] [address] [address] Gigi To Sodium [Moles/Vol] 140 mmol/L Normal 136-145 [facility] Comment on above: Performed By: #### B MP #### [facility] [address] [address] [address] Gigi To Urea nitrogen [Mass/Vol] 15.0 mg/dL Normal 7.0-18.0 [facility] Comment on above: Performed By: #### B MP #### [facility] [address] [place] [address] Dr. Gigi To Urea nitrogen/Creatinine [Mass ratio] 15.8 mg/mg Normal [facility] Comment on above: Performed By: #### B MP #### [facility] [address] [place] [address] Dr. Gigi To PROTIMEon 02-21-2022 INR Coag (PPP) [Relative time] 0.99 {INR} Normal [facility] Comment on above: Performed By: #### A 1C #### [facility] [address] [place] [address] Dr. Gigi To INR GUIDELINES SEE BELOW Normal [facility] Comment on above: Result Comment: ASHLEY RED INR: 2.0 - 3.0 CONDITIONS NOT LISTED BELOW 2.5 - 3.5 FOR PROSTHETIC HEART VALVE REPLACEMENT 2.5 - 3.5 RECURRENT THROMBOSIS Performed By: #### A 1C #### [facility] [address] [place] [address] Dr. Gigi To PT Coag (PPP) [Time] 10.7 s Normal 9.0-11.6 [facility] Comment on above: Performed By: #### A 1C #### [facility] [address] [place] [address] Dr. Gigi To PTTon 02-21-2022 aPTT Coag (Bld) [Time] 26.2 s Normal 22.3-36.2 [facility] Comment on above: Performed By: #### A 1C #### [facility] [address] [place] [address] Dr. Gigi To Vital Signs Date Time Vital Sign Value Performing Clinician Facility 06-02-2025 08:38-0400 Body mass index (BMI) [Ratio] 32.13 kg/m2 Mildred Corral PROTOTYPER Work Phone: [facility] 06-02-2025 08:38-0400 Body temperature 97.81 [degF] Mildred Corral PROTOTYPER Work Phone: [facility] 06-02-2025 08:38-0400 Body weight 104.51 kg Mildred Aichholz PROTOTYPER Work Phone: [facility] 06-02-2025 08:38-0400 Diastolic blood pressure 82 mm[Hg] Mildred Aichholz PROTOTYPER Work Phone: [facility] 06-02-2025 08:38-0400 Heart rate 91 /min Mildred Aichholz PROTOTYPER Work Phone: [facility] 06-02-2025 08:38-0400 Respiratory rate 20 /min Mildred Aichholz PROTOTYPER Work Phone: [facility] 06-02-2025 08:38-0400 SaO2% (BldA) [Mass fraction] 97 % Mildred Aichholz PROTOTYPER Work Phone: [facility] 06-02-2025 08:38-0400 Systolic blood pressure 138 mm[Hg] Mildred Aichholz PROTOTYPER Work Phone: [facility] 02-24-2025 08:38-0400 Body mass index (BMI) [Ratio] 31.52 kg/m2 Mildred Aichholz PROTOTYPER Work Phone: [facility] 02-24-2025 08:38-0400 Body temperature 97.81 [degF] Mildred Gersonhholz PROTOTYPER Work Phone: [facility] 02-24-2025 08:38-0400 Body weight 102.51 kg Mildred Gersonhholz PROTOTYPER Work Phone: [facility] 02-24-2025 08:38-0400 Diastolic blood pressure 76 mm[Hg] Mildred Aichholz PROTOTYPER Work Phone: [facility] 02-24-2025 08:38-0400 Heart rate 92 /min Mildred Aichholz PROTOTYPER Work Phone: [facility] 02-24-2025 08:38-0400 Respiratory rate 18 /min Mildred Aichholz PROTOTYPER Work Phone: [facility] 02-24-2025 08:38-0400 SaO2% (BldA) [Mass fraction] 98 % Mildred Corral PROTOTYPER Work Phone: [facility] 02-24-2025 08:38-0400 Systolic blood pressure 134 mm[Hg] Mildredjudd Paynez PROTOTYPER Work Phone: [facility] 12-02-2024 08:43-0500 Body mass index (BMI) [Ratio] 31.77 kg/m2 Mildredjudd Paynez PROTOTYPER Work Phone: [facility] 12-02-2024 08:43-0500 Body temperature 98.49 [degF] Mildred Elmerz PROTOTYPER Work Phone: [facility] 12-02-2024 08:43-0500 Body weight 103.33 kg Mildred Paynez PROTOTYPER Work Phone: [facility] 12-02-2024 08:43-0500 Diastolic blood pressure 78 mm[Hg] Mildred Paynez PROTOTYPER Work Phone: [facility] 12-02-2024 08:43-0500 Heart rate 101 /min Mildred Lolaholz PROTOTYPER Work Phone: [facility] 12-02-2024 08:43-0500 Respiratory rate 20 /min Mildredjudd Paynez PROTOTYPER Work Phone: [facility] 12-02-2024 08:43-0500 SaO2% (BldA) [Mass fraction] 95 % Mildredjudd Paynez PROTOTYPER Work Phone: [facility] 12-02-2024 08:43-0500 Systolic blood pressure 128 mm[Hg] Mildred Elmerz PROTOTYPER Work Phone: [facility] 06-03-2024 08:37-0400 Body mass index (BMI) [Ratio] 32.64 kg/m2 Mildredjudd Davilaholz PROTOTYPER Work Phone: [facility] 06-03-2024 08:37-0400 Body temperature 97.9 [degF] Mildred Lolaholz PROTOTYPER Work Phone: [facility] 06-03-2024 08:37-0400 Body weight 106.14 kg Mildred Gersonhholz PROTOTYPER Work Phone: [facility] 06-03-2024 08:37-0400 Diastolic blood pressure 80 mm[Hg] Mildred Aichholz PROTOTYPER Work Phone: [facility] 06-03-2024 08:37-0400 Heart rate 89 /min Mildred Aichholz PROTOTYPER Work Phone: [facility] 06-03-2024 08:37-0400 SaO2% (BldA) [Mass fraction] 95 % Mildred Aichholz PROTOTYPER Work Phone: [facility] 06-03-2024 08:37-0400 Systolic blood pressure 140 mm[Hg] Mildred Aichholz PROTOTYPER Work Phone: [facility] 03-25-2024 07:46-0400 Body height 180.34 cm Mildred Gersonhholz Work Phone: [facility] 03-25-2024 07:46-0400 Body weight 104.32 kg Mildred Gersonhholz Work Phone: [facility] 02-24-2022 17:16-0400 Blood Pressure Location [facility] 02-24-2022 17:16-0400 BP/Pulse Patient Position [facility] 02-24-2022 17:16-0400 Diastolic blood pressure 80 mm[Hg] [facility] 02-24-2022 17:16-0400 Heart rate 85 /min [facility] 02-24-2022 17:16-0400 Mean blood pressure 103 mm[Hg] [facility] 02-24-2022 17:16-0400 Respiratory rate 18 /min [facility] 02-24-2022 17:16-0400 SaO2% (BldA) [Mass fraction] 97 % [facility] 02-24-2022 17:16-0400 Systolic blood pressure 150 mm[Hg] [facility] 02-24-2022 16:20-0400 Blood Pressure Location [facility] 02-24-2022 16:20-0400 Diastolic blood pressure 90 mm[Hg] [facility] 02-24-2022 16:20-0400 Heart rate 84 /min [facility] 02-24-2022 16:20-0400 Respiratory rate 18 /min [facility] 02-24-2022 16:20-0400 SaO2% (BldA) [Mass fraction] 96 % [facility] 02-24-2022 16:20-0400 Systolic blood pressure 150 mm[Hg] [facility] 02-24-2022 16:13-0400 Body temperature 97.34 [degF] [facility] 02-24-2022 16:13-0400 Diastolic blood pressure 95 mm[Hg] [facility] 02-24-2022 16:13-0400 Heart rate 94 /min [facility] 02-24-2022 16:13-0400 Respiratory rate 15 /min [facility] 02-24-2022 16:13-0400 SaO2% (BldA) [Mass fraction] 95 % [facility] 02-24-2022 16:13-0400 Systolic blood pressure 154 mm[Hg] [facility] 02-24-2022 16:00-0400 Respiratory rate 24 /min [facility] 02-24-2022 15:55-0400 Respiratory rate 18 /min [facility] 02-24-2022 15:48-0400 Body temperature 97.16 [degF] [facility] 02-24-2022 15:45-0400 Respiratory rate 1 /min [facility] 02-24-2022 10:49-0400 Blood Pressure Location [facility] 02-24-2022 10:49-0400 Mean blood pressure 100 mm[Hg] [facility] 02-24-2022 10:47-0400 Body temperature 98.06 [degF] [facility] 02-24-2022 10:47-0400 Mean blood pressure 115 mm[Hg] [facility] 02-24-2022 10:47-0400 Heart rate 96 /min [facility] Encounters Encounter Date Encounter Type Care Provider Facility Start: 12-22-2025 ambulatory PRASHANT CORTES Facili ty:[facility] Start: 12-15-2025 ambulatory PRASHANT CORTES Facili ty:[facility] Start: 06-02-2025 End: 08-25-2025 Bamboo flowsheet Mildred Shayna PROTOTYPER Work Phone: [facility] Start: 06-02-2025 End: 06-02-2025 Bamboo flowsheet Mildred Shayna PROTOTYPER Work Phone: [facility] Start: 06-02-2025 End: 06-02-2025 Office outpatient visit 25 minutes Mildred Shayna PROTOTYPER Work Phone: [facility] Comment on above: Primary hypertension (Primary Dx); 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 ; Type 2 [...] 04-22-2025 End: 04-22-2025 Telephone encounter Mildred Corral PROTOTYPER Work Phone: [facility] Start: 02-24-2025 End: 02-24-2025 Bamboo flowsheet Mildred Shayna PROTOTYPER Work Phone: [facility] Start: 02-24-2025 End: 02-24-2025 Bamboo flowsheet Mildred Shayna PROTOTYPER Work Phone: [facility] Start: 02-24-2025 End: 02-24-2025 Office outpatient visit 25 minutes Mildred Shayna PROTOTYPER Work Phone: [facility] Comment on above: Coronary artery dise ase involving standing rock coronary artery of standing rock heart without angina pectoris (CMS/HCC) (Primary Dx); [...] Start: 02-11-2025 End: 02-11-2025 Refill Mildred Lolaholz PROTOTYPER Work Phone: [facility] Comment on above: Sciatica, unspecifie d laterality (Primary Dx) Start: 12-16-2024 End: 12-16-2024 ambulatory PRASHANT CORTES Facility:[facility] Start: 12-07-2024 End: 12-07-2024 Clinisync Result Encounter Generic External Data Provider [facility] External Department Unsolicited Start: 12-07-2024 End: 12-07-2024 Clinisync Result Encounter Generic External Data Provider [facility] External Department Unsolicited Start: 12-02-2024 End: 12-02-2024 Bamboo flowsheet Mildred Elmerz PROTOTYPER Work Phone: [facility] Start: 12-02-2024 End: 12-02-2024 Bamboo flowsheet Mildred Aichholz PROTOTYPER Work Phone: [facility] Start: 12-02-2024 End: 12-02-2024 Office outpatient visit 25 minutes Mildred Shayna PROTOTYPER Work Phone: [facility] Comment on above: Type 2 diabetes rah itus without complication, without long- term current use of insulin (CMS/HCC) (Primary Dx); Type 2 diabetes mellitus without complications (CMS/HCC); Centrilobular emphysema (CMS/HCC); Multiple pulmonary nodules; 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 (CMS/HCC); Primary hypertension [...] Start: 12-02-2024 End: 12-02-2024 Refill Mildred Elmerz PROTOTYPER Work Phone: [facility] Comment on above: Type 2 diabetes rah itus without complications ([facility]); Primary hypertension ([facility]); Type 2 diabetes mellitus without complication, without long-term current use of insulin ([facility]); Controlled type 2 diabetes mellitus without complication, without long-term current use of insulin ([facility]); Benign prostatic hyperplasia, unspecified whether lower urinary tract symptoms present Start: 11-28-2024 End: 11-28-2024 Refill Pavan Dailey MD Work Phone: [facility] Comment on above: Primary hypertension ([facility]) Start: 11-11-2024 End: 11-11-2024 Clinisync Result Encounter Generic External Data Provider [facility] External Department Unsolicited Start: 11-11-2024 End: 11-11-2024 Clinisync Result Encounter Generic External Data Provider [facility] External Department Unsolicited Start: 08-19-2024 End: 08-19-2024 Orders Only Mildred Shayna PROTOTYPER Work Phone: [facility] Comment on above: Lung nodule, multipl e (Primary Dx) Start: 08-08-2024 End: 08-08-2024 Refill Mildred Elmerz PROTOTYPER Work Phone: [facility] Comment on above: Type 2 diabetes rah itus without complication, without long- term current use of insulin ([facility]) Start: 07-29-2024 End: 07-29-2024 Patient encounter procedure Mildred Corral Work Phone: [facility] [place] Work Phone: Start: 07-29-2024 End: 07-29-2024 ambulatory Mildredjudd Corral Work Phone: [facility] Work Phone: Start: 07-15-2024 End: 07-15-2024 Orders Only Mildred Shayna PROTOTYPER Work Phone: [facility] Comment on above: Lung nodule, multipl e (Primary Dx) Start: 06-25-2024 End: 06-25-2024 ambulatory Moni X Orzech Facility:[facility] Start: 06-25-2024 End: 06-25-2024 Patient encounter procedure Moni X Balaji [facility] Start: 06-03-2024 End: 06-03-2024 Bamboo flowsheet Mildred Corral PROTOTYPER Work Phone: [facility] Start: 06-03-2024 End: 06-03-2024 Bamboo flowsheet Mildred Corral PROTOTYPER Work Phone: [facility] Start: 06-03-2024 End: 06-03-2024 Office outpatient visit 25 minutes Mildred Corral PROTOTYPER Work Phone: [facility] Comment on above: Primary hypertension (CMS/HCC) (Primary Dx); Centrilobular emphysema (CMS/HCC); BMI 32.0-32.9,adult; Type 2 diabetes mellitus without complication, without long-term current use of insulin (CMS/HCC); Cigarette nicotine dependence without complication; Rising PSA level Start: 06-03-2024 End: 06-03-2024 ambulatory MILDRED SHAYNA Not Available Start: 03-25-2024 End: 03-25-2024 Patient encounter procedure Mildred Shayna Work Phone: [facility] Work Phone: Start: 03-25-2024 End: 03-25-2024 ambulatory Mildred J Shayna Work Phone: [facility] Work Phone: Start: 12-26-2022 ambulatory [employer] DESIGN[employer] IMLDRED CORRAL Facil ity:H1 Start: 12-02-2022 End: 12-02-2022 ambulatory SARTHAK STEPHENS . Facility: Start: 11-05-2022 End: 11-06-2022 ambulatory PATTI CORRAL Facility:H1 Start: 03-19-2022 End: 03-20-2022 ambulatory PATTI CORRAL Facility:H1 Start: 02-25-2022 Encounter for other preprocedural examination DR TACOS SU . [facility] Start: 02-25-2022 Encounter for preprocedural cardiovascular examination DR TACOS SU . [facility] Start: 02-25-2022 Encounter for preprocedural laboratory examination DR TACOS SU . [facility] Start: 02-24-2022 End: 02-24-2022 Admission to same day surgery center Tacos SU [facility] Start: 02-24-2022 End: 02-24-[address] TACOS SU . Facility:H1 Start: 02-21-2022 End: 02-22-[address] TACOS SU . Facility:H1 Start: 02-21-2022 End: 02-22-2022 Encounter for preprocedural laboratory examination DR TACOS SU . Facility:H1 Procedures Date Procedure Procedure Detail Performing Clinician Start: 06-02-2025 Hemoglobin glycosylated a1c Mildred Corral PROTOTYPER Work Phone: Start: 12-07-2024 MHPT PSA, DIAGNOSTIC Ge neric External Data Provider Start: 12-02-2024 Hemoglobin glycosylated a1c Mildred Shayna PROTOTYPER Work Phone: Start: 11-11-2024 CT CHEST WO CON Generic External Data Provider Start: 03-25-2024 Positron emission tomography with computed tomography Mildred Corral Work Phone: Start: 12-02-2022 Colonoscopy Mildred Angeline mejia PROTOTYPER Work Phone: Start: 03-19-2022 PSA screening PATTI CORRAL Comment on above: Performed By: #### P SAD #### [facility] [address] [place] [address] Dr. Gigi To Start: 02-24-2022 Extracorporeal shock wave lithotripsy of calculus of kidney Tacos SU Colonoscopy Tacos SU Plan of Treatment Date Care Activity Detail Author Start: 12-02-2027 Screening for malign ant neoplasm of colon [facility] Start: 06-03-2026 Glaucoma screening Diabetes: R etinopathy Screening [facility] Start: 12-03-2025 Hemoglobin A1c measurement Diabetes: Hemoglobin A1C [facility] Start: 06-02-2025 End: 06-02-2026 Cardiac stress study Procedure STRESS TEST TREADMILL Imaging Routine Primary hypertension 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 Type 2 diabetes mellitus without complication, without long-term current use of insulin (HCC) Controlled type 2 diabetes mellitus without complication, without long-term current use of insulin ([facility]) Expected: 06/02/2025 (Approximate), Expires: 06/02/2026 [facility] Comment on above: Expected: 06/02/2025 (Approximate), Expires: 06/02/2026 Start: 06-02-2025 End: 06-02-2026 CBC W Auto Differential panel - Blood CBC and differential Lab Routine Cigarette nicotine dependence without complication Expected: 06/02/2025 (Approximate), Expires: 06/02/2026 [facility] Work Phone: Comment on above: Expected: 06/02/2025 (Approximate), Expires: 06/02/2026 Start: 06-02-2025 End: 06-02-2026 Comprehensive metabolic 2000 panel - Serum or Plasma Comprehensive metabolic panel Lab Routine Primary hypertension 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 Type 2 diabetes mellitus without complication, without long-term current use of insulin (HCC) Hyperlipidemia, mixed Expected: 06/02/2025 (Approximate), Expires: 06/02/2026 [facility] Comment on above: Expected: 06/02/2025 (Approximate), Expires: 06/02/2026 Start: 06-02-2025 End: 06-02-2026 Lipid 1996 panel - Serum or Plasma Lipid panel Lab Routine Hyperlipidemia, mixed Expected: 06/02/2025 (Approximate), Expires: 06/02/2026 [facility] Comment on above: Expected: 06/02/2025 (Approximate), Expires: 06/02/2026 Start: 06-02-2025 End: 06-02-2026 Microalbumin/Creatinine panel in random Urine Microalbumin / creatinine, urine ratio Lab Routine Primary hypertension Type 2 diabetes mellitus without complication, without long-term current use of insulin (HCC) Expected: 06/02/2025 (Approximate), Expires: 06/02/2026 [facility] Comment on above: Expected: 06/02/2025 (Approximate), Expires: 06/02/2026 Start: 06-02-2025 End: 06-02-2026 PSA, total and free PSA, total and free Lab Routine Rising PSA level Expected: 06/02/2025 (Approximate), Expires: 06/02/2026 [facility] Comment on above: Expected: 06/02/2025 (Approximate), Expires: 06/02/2026 Start: 06-02-2025 End: 06-02-2026 Urinalysis complete panel - Urine Urinalysis with reflex microscopic (clean catch) Lab Routine Primary hypertension Type 2 diabetes mellitus without complication, without long-term current use of insulin (HCC) Cigarette nicotine dependence without complication Expected: 06/02/2025 (Approximate), Expires: 06/02/2026 [facility] Comment on above: Expected: 06/02/2025 (Approximate), Expires: 06/02/2026 Start: 06-02-2025 End: 06-02-2025 Patient encounter procedure [facility] Comment on above: Primary hypertension (Primary Dx); 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 ; Type 2 diabetes mellitus without complication, without long-term current use of insulin (HCC); Class 1 obesity due to excess calories with serious comorbidity in adult, unspecified BMI; Cigarette nicotine dependence without complication; Rising PSA level; Hyperlipidemia, mixed Start: 06-01-2025 Hemoglobin A1c measurement Diabetes: Hemoglobin A1C [facility] Start: 05-23-2025 Glaucoma screening Diabetes: R etinopathy Screening [facility] Start: 05-06-2025 Urine screening for protein Diabetes: Urine Protein Screening [facility] Start: 02-24-2025 End: 02-24-2025 Patient encounter procedure [facility] Comment on above: Coronary artery dise ase involving standing rock coronary artery of standing rock heart without angina pectoris (CMS/HCC) (Primary Dx); [...] Nuclear Medicine Routine 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 (CMS/HCC) Primary hypertension (CMS/HCC) Cigarette nicotine dependence without complication Hyperlipidemia, mixed (CMS/HCC) Family history of early CAD Expected: 12/02/2024 (Approximate), Expires: 12/02/2026 [facility] [employer] Work Phone: Comment on above: Expected: 12/02/2024 (Approximate), Expires: 12/02/2026 Start: 12-02-2024 End: 12-02-2024 Patient encounter procedure [facility] Comment on above: Multiple pulmonary n odules (Primary Dx); Type 2 diabetes mellitus without complications (CMS/HCC); Centrilobular emphysema (CMS/HCC); 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 (CMS/HCC); Primary hypertension (CMS/HCC); Elevated PSA; Benign prostatic hyperplasia, unspecified whether lower urinary tract symptoms present; Cigarette nicotine dependence without complication; Hyperlipidemia, mixed (CMS/HCC); Class 1 obesity due to excess calories with serious comorbidity in adult, unspecified BMI Start: 11-06-2024 Hemoglobin A1c measurement Diabetes: Hemoglobin A1C [facility] Start: 07-29-2024 MR prostate wo con MR prostate wo co n [facility] Start: 07-29-2024 MR Prostate WO contrast [facility] Start: 07-15-2024 End: 07-15-2025 CT Chest for screening WO contrast Lung screening follow up CT chest wo IV contrast Imaging Routine Lung nodule, multiple Expected: 07/15/2024 (Approximate), Expires: 07/15/2025 [facility] [employer] Work Phone: Comment on above: Expected: 07/15/2024 (Approximate), Expires: 07/15/2025 Start: 06-03-2024 End: 06-03-2024 Patient encounter procedure 06/03/2024 8:40 AM EDT Office Visit [facility] [address] [place] [id number] Mildred Corral NP [address] [place] [address] Centrilobular emphysema (CMS/HCC) [facility] Comment on above: Centrilobular emphys susan (CMS/HCC) Start: 12-05-2023 Screening for malign ant neoplasm of colon [facility] Start: 1955 Screening for malign ant neoplasm of colon [facility] Immunizations Immunization Date Immunization Notes Care Provider Fa cility 01-24-2022 Pfizer Paredes Cap SARS-CoV-2 Vaccination Mildred Corral PROTOTYPER Work Phone: [facility] 01-24-2022 SARS-CoV-2, Unspecified Mildred Corral PROTOTYPER Work Phone: [facility] 03-20-2021 Pfizer Purple Cap SARS-CoV-2 Vaccination Mildred Corral PROTOTYPER Work Phone: [facility] 03-15-2021 SARS-CoV-2 (COVID-19 ) mRNA BNT-162b2 vacony SU [facility] 02-27-2021 SARS-CoV-2 (COVID-19 ) mRNA BNT-162b2 alejandro SU [facility] Payers Date Payer Category Payer [facility] [id number] 2024 Unknown [id number] 2024 Unknown [id number] 2024 Self-pay 2024 Medicare [id number] 2021 Private Health Insurance [id number] 1959 Private Health Insurance [id number] 1953 Unknown [id number] [id number]. 2.593 1953 Unknown [id number] 2.16.840.1.745957.3.579. 2.593 1953 Unknown [id number] 2.16.840.1.279934.3.579. 2.593 1953 Unknown [id number] 2.16.840.1.211219.3.579. 2.593 1953 Unknown [id number] 2.16.840.1.152469.3.579. 2.593 1953 Unknown [id number] 2.16.840.1.762707.3.579. 2.593 1953 Unknown [id number] 2.16.840.1.730965.3.579. 2.727 1953 Unknown [id number] 2.16.840.1.134604.3.579. 2.727 1953 Unknown [id number] 2.16.840.1.292572.3.579. 2.727 1953 Unknown [id number] 2.16.840.1.914068.3.579. 2.727 1953 Unknown [id number] 2.16.840.1.005543.3.579. 2.1259 1953 Unknown [id number] 2.16.840.1.972130.3.579. 2.1259 1953 Unknown [id number] 2.16.840.1.589555.3.579. 2.1259 1953 Unknown [id number] 2.16.840.1.222203.3.579. 2.1259 Unknown [id number] 2.16.840.1.844521.3.579. 2.531 Unknown [id number] 2.16.840.1.768671.3.579. 2.531 Social History Date Type Detail Facility Tobacco Unknown if ever smoked [facility] Comment on above: 1 10/10 ppd cigarettes Start: 06-03-2024 End: 06-02-2025 Sex Assigned At Male [facility] Start: 1955 Sex Assigned At Male [facility] Start: 12-04-2023 End: 06-03-2024 Tobacco smoking status COIS Smokes tobacco daily [facility] History of [...] Smokin g Status Entered [facility] Functional Status Date Assessment Result Facility 06-25-2024 Functional Status N/A [facility] Clinical Notes 02-24-2022 to 06-02-2025 Mildred Corral NP - 06/02/2025 8:40 AM Jose Corral NP - 06/02/2025 6:22 AM MITCHELLRay Davilaclifton, PROTOTYPER - 06/02/2025 6:21 AM MITCHELLRay Daviladodieheydi, CARLA [...] compliance problems. There is no history of CAD/AZ, heart failure or PVD. SUBJECTIVE: MEDICATIONS: Current [...] of the risks of continued smoking: stroke, AZ, all forms of cancer, lung disease, and [...] of the risks of continued smoking: stroke, AZ, all forms of cancer, lung disease, and [...] Current med: lisinopril documented in this encounter [facility] 04-22-2025 Telephone encounter Note Please let pt know that I did speak to [employer] on 04/17/25, they will not approve to combo stress test of treadmill and nuclear imaging, but they will approve a plain treadmill stress test, is he ok with doing this to start with? LA [facility] 04-22-2025 Miscellaneous Notes Please let pt know that I did speak to [employer] on 04/17/25, they will not approve to combo stress test of treadmill and nuclear imaging, but they will approve a plain treadmill stress test, is he ok with doing this to start with? LA documented in this encounter [facility] 02-24-2025 History of Present illness Narrative Associated [...] being taken. He does not see a sand tester.Eye exam is current. Hypertension This is a [...] There is no history of kidney disease, CAD/AZ, PVD or retinopathy. SUBJECTIVE: MEDICATIONS: Current Outpatient [...] History: Diagnosis Date CAD (coronary artery disease) ([facility]) 12/04/2023 Cigarette nicotine dependence without complication 12/04/2023 History of adenomatous polyp of colon 12/04/2023 Hyperlipidemia, mixed ([facility]) 12/04/2023 Hypertension ([facility]) 12/04/2023 Kidney stone on left [...] of the risks of continued smoking: stroke, AZ, all forms of cancer, lung disease, and [...] of the risks of continued smoking: stroke, AZ, all forms of cancer, lung disease, and [...] factors for CAD documented in this encounter [facility] 12-16-2024 Note Patient Education Pulmonary Medicine Health [...] of Health and Human Services: www.smokefree.gov ??? [place] [employer]: www.freedomfromsmoking.org ??? [place] [employer]: www.heart.org Where to find more [...] provider. Document Revised: 09/27/2022 Document Reviewed: 09/27/2022 [employer] Patient Education ? 2023 MePlease. [facility] 12-02-2024 History of Present illness Narrative Associated [...] compliance problems. There is no history of CAD/AZ, heart failure or PVD. Diabetes He presents [...] being taken. He does not see a sand tester.Eye exam is current. SUBJECTIVE: MEDICATIONS: Current Outpatient [...] History: Diagnosis Date CAD (coronary artery disease) ([facility]) 12/04/2023 Cigarette nicotine dependence without complication 12/04/2023 History of adenomatous polyp of colon 12/04/2023 Hyperlipidemia, mixed ([facility]) 12/04/2023 Hypertension ([facility]) 12/04/2023 Kidney stone on left side 12/04/2023 Lumbar radiculopathy Osteoarthritis of both hips, unspecified osteoarthritis type 12/04/2023 Pancreatitis 12/04/2023 Tobacco user 12/04/2023 Type 2 diabetes mellitus ([facility]) 12/04/2023 History reviewed. No pertinent [...] Addressed This Visit CAD (coronary artery disease) ([facility]) Calcifications noted on chest CT Current meds: asa, statin, yadira Strong family hx of CAD No active chest pain Will order stress test Relevant Orders Stress test with myocardial perfusion Type 2 diabetes mellitus without complications ([facility]) - Primary Check blood sugars [...] (Hb A1C) docked device (Completed) Hyperlipidemia, mixed ([facility]) On statin therapy Check labs yearly, and prn dose changes Relevant Orders Stress test with myocardial perfusion Cigarette nicotine dependence without complication The patient has been advised of the risks of continued smoking: stroke, AZ, all forms of cancer, lung disease, and . Options for quitting smoking include: cold turkey, hypnosis, acupuncture, nicotine replacement meds (gum, lozenges, and patches), Buproprion, and Varenicline. At this time pt is encouraged to evaluate their goals for wanting to quit smoking, and reach out to provider when ready to start this process Relevant Orders Stress test with myocardial perfusion Primary hypertension ([facility]) Please check blood pressure daily [...] of the risks of continued smoking: stroke, AZ, all forms of cancer, lung disease, and . Options for quitting smoking include: cold turkey, hypnosis, acupuncture, nicotine replacement meds (gum, lozenges, and patches), Buproprion, and Varenicline. At this time pt is encouraged to evaluate their goals for wanting to quit smoking, and reach out to provider when ready to start this process Associated Problem(s): Type 2 diabetes mellitus without complications ([facility]) Check blood sugars daily, notify [...] Current meds: flomax Associated Problem(s): Primary hypertension ([facility]) Please check blood pressure daily and record DASH diet Limit caffeine Take medication as directed Contact office if chest pain, pressure, dizziness, shortness of breath, swelling legs Recommend slow position changes Current med: lisinopril Associated Problem(s): CAD (coronary artery disease) ([facility]) Calcifications noted on chest CT Current meds: asa, statin, yadira Strong family hx of CAD No active chest pain Will order stress test Associated Problem(s): Centrilobular emphysema (CMS/HCC) No current daily inhalers for treatment Does continue with smoking Associated Problem(s): Multiple pulmonary nodules Follows with Dr Des Dewitt documented in this encounter [facility] 12-02-2024 Instructions Mildred Corral NP - 12/02/2024 8:40 AM EST Keep appt with Urology Will order stress test at [facility] No medication changes documented in this encounter [facility] 06-25-2024 Hospital Discharge instructions Patient Education 06/25/2024 [...] treatment? Where to find more information [employer] [place] [employer]: www.cancer.org [place] [employer]: www.auanet.org Contact a health care [...] provider. Document Revised: 03/21/2022 Document Reviewed: 03/21/2022 [employer] Patient Education 2023 MePlease. 06/25/2024 13:09:32 Benign Prostatic Hyperplasia Benign Prostatic [...] urethra. Follow these instructions at home: Take exfv-cdy-kuuorpw and prescription medicines only as told by [...] provider. Document Revised: 04/13/2022 Document Reviewed: 04/13/2022 [employer] Patient Education 2023 [employer] Follow Up Care 06/05/2024 09:20:17 With:SENG Carpio APRN, Moni Ferguson, KARISSA, URL Address: When: Unknown Comments:pending MRI [facility] 06-25-2024 Note Urology Office/Clini c Note [...] with voice recognition artificial intelligence software, specifically icomply, [employer] and or [employer]. Substitutions may have occurred due to the [...] to proceed w/ MRI. -prostate MRI at [facility]. Pt knows that this could lead to [...] Urnls Dip Stick Auto w/o Microscopy POC 95000 2. BPH (benign prostatic hyperplasia) (N40.0: Benign [...] Father. Immunizations Vaccine (more content not included)... [facility] Comment on above: Result Comment: Elec tronically [...] Where to find more information ? The [place] [employer]: www.cancer.org ? [place] [employer]: www.auanet.org Contact a health care [...] of the rectum. (more content not included)... [facility] 06-03-2024 History of Present illness Narrative Associated [...] of the risks of continued smoking: stroke, AZ, all forms of cancer, lung disease, and [...] being taken. He does not see a sand tester.Eye exam is current. SUBJECTIVE: MEDICATIONS: Current Outpatient [...] History: Diagnosis Date CAD (coronary artery disease) ([facility]) 12/04/2023 Cigarette nicotine dependence without complication 12/04/2023 History of adenomatous polyp of colon 12/04/2023 Hyperlipidemia, mixed ([facility]) 12/04/2023 Hypertension ([facility]) 12/04/2023 Kidney stone on left side 12/04/2023 Lumbar radiculopathy Osteoarthritis of both hips, unspecified osteoarthritis type 12/04/2023 Pancreatitis 12/04/2023 Tobacco user 12/04/2023 Type 2 diabetes mellitus ([facility]) 12/04/2023 History reviewed. No pertinent [...] Addressed This Visit Type 2 diabetes mellitus ([facility]) A1c in range UTD on eye exam No changes in medications Cigarette nicotine dependence without complication The patient has been advised of the risks of continued smoking: stroke, AZ, all forms of cancer, lung disease, and [...] to quit smoking documented in this encounter [facility] 02-24-2022 Hospital Discharge instructions Patient Education 02/24/2022 [...] Follow these instructions at home: Medicines Take tvjy-vfz-ntagewz and prescription medicines only as told by [...] 10/14/2008 Document Revised: 01/06/2020 Document Reviewed: 08/16/2017 [employer] Patient Education 2020 MePlease. 02/24/2022 16:14:46 Dsej-Oqzy-[id number] Utereroscopy,Lithotripsy, Stone Extraction, Stent Placement (Custom) [facility] [place] Post-operative Instructions for Ureteroscopy, Laser Lithotripsy, [...] other reasons. If it is to remain halfway, however, changes of the stent are required [...] arrange for your post-operative appointment (with XRAY) [phone] 02/24/2022 16:12:34 Post Op Patient Instructions - FT (Custom) (CUSTOM) Follow Up Care 02/24/2022 09:52:22 With:Tacos SU Address: [facility] [address] [place] [address]- Business (1) When: Unknown Comments:Office will call for next step [facility] 02-24-2022 Evaluation + Plan note Extrac rita from: Title:Post-anesthesia - General Author:Parker Ramirez DO Date:02/24/22 Plan Transfer/ Discharge: Condition stable. Extracted from: Title:Pre-anesthesia - Adult Author:Parker Fields Jr., DO Date:02/24/22 Plan [place] [employer] Anesthesiologists (ASA) physical status classification: Class III. Anesthetic Preoperative Plan Anesthesia: General. . Anesthetic plan, risks, benefits, and alternatives discussed with the patient and/or family. Patient verbalized understanding. Adverse reactions, complications, and alternatives discujssed. Consent signed and on chart.. [facility] information available [facility] Work Phone: Evaluation note* Diagnosis Lung nodule, multiple- Primary documented in this encounter [facility] HealthcareEvaluation note* Diagnosis Type 2 diabetes mellitus without complication, without long-term current use of insulin (CMS/HCC)- Primary History of adenomatous polyp of colon Personal history of colonic polyps Primary hypertension (CMS/HCC) Unspecified essential hypertension 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 (CMS/HCC) Cigarette nicotine [...] of insulin (CMS/HCC) documented in this encounter [facility] HealthcareEvaluation note* Diagnosis Type 2 diabetes mellitus without complication, without long-term current use of insulin (CMS/HCC)- Primary History of adenomatous polyp of colon Personal history of colonic polyps Primary hypertension (CMS/HCC) Unspecified essential hypertension 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 (CMS/HCC) Cigarette nicotine [...] nodule, multiple- Primary documented in this encounter [facility] HealthcareEvaluation note* Diagnosis Primary hypertension (CMS/HCC)- Primary [...] Unspecified essential hypertension 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 (CMS/HCC) Cigarette nicotine [...] Unspecified essential hypertension documented in this encounter [facility] HealthcareEvaluation note* Diagnosis Type 2 diabetes mellitus without complication, without long-term current use of insulin (CMS/HCC)- Primary History of adenomatous polyp of colon Personal history of colonic polyps Primary hypertension (CMS/HCC) Unspecified essential hypertension 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 (CMS/HCC) Cigarette nicotine [...] not elsewhere classified 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 (CMS/HCC) Primary hypertension [...] ischemic heart disease documented in this encounter [facility] HealthcareEvaluation note* Diagnosis Type 2 diabetes mellitus without complication, without long-term current use of insulin (CMS/HCC)- Primary History of adenomatous polyp of colon Personal history of colonic polyps Primary hypertension (CMS/HCC) Unspecified essential hypertension 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 (CMS/HCC) Cigarette nicotine [...] not elsewhere classified 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 (CMS/HCC) Primary hypertension [...] tract symptoms present documented in this encounter [facility] HealthcareEvaluation note* Diagnosis Type 2 diabetes mellitus without complication, without long-term current use of insulin- Primary History of adenomatous polyp of colon Personal history of colonic polyps Primary hypertension (CMS/HCC) Unspecified essential hypertension 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 (CMS/HCC) Cigarette nicotine [...] not elsewhere classified 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 (CMS/HCC) Primary hypertension [...] unspecified laterality- Primary documented in this encounter [facility] HealthcareEvaluation note* Diagnosis Type 2 diabetes mellitus without complication, without long-term current use of insulin- Primary History of adenomatous polyp of colon Personal history of colonic polyps Primary hypertension (CMS/HCC) Unspecified essential hypertension 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 (CMS/HCC) Cigarette nicotine [...] not elsewhere classified 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 (CMS/HCC) Primary hypertension [...] ischemic heart disease 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 (CMS/HCC)- Primary Primary [...] lower extremity pain documented in this encounter [facility] HealthcareEvaluation note* Diagnosis Type 2 diabetes mellitus without complication, without long-term current use of insulin (HCC)- Primary History of adenomatous polyp of colon Personal history of colonic polyps Primary hypertension Unspecified essential hypertension 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 Cigarette nicotine dependence [...] not elsewhere classified 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 Primary hypertension Unspecified [...] ischemic heart disease 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- Primary Primary hypertension [...] Unspecified essential hypertension 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 Type 2 diabetes [...] Narrative No data available for this section [facility] No data available for this section [facility] [id number] Summary Purpose Family History No Family History [...] contrast Mildred Corral, CARLA [address] [place] [address] Referral ID Status Reason Start Date Expiration Date V isits Requested Visits Authorized [id number] Pending Review 07/15/2024 01/11/2025 1 1 Additional Source Comments (unrecognized sect ion and content) No Status Records FoundNo Status Records FoundNo Status Records FoundNo Status Records Found INFORMATION SOURCE (unrecogn ized section and content) DATE CREATED AUTHOR 12/23/2022 [facility] DATE CREATED AUTHOR AUTHOR'S ORGANIZ ATION 08/04/2024 [facility] DATE CREATED AUTHOR AUTHOR'S ORGANIZ ATION 12/17/2024 [facility] DATE CREATED AUTHOR AUTHOR'S ORGANIZ ATION 06/03/2025 [facility] EPIC Care Teams (unrecognized sec tion and content) Team Status: Active Member Role Status Dates Mildred Corral Primary Care Provider Active Team Status: Inactive Member Role Status Dates Mildred Corral Primary Care Provide r, Attending Provider Active Start: March 25, 2024 End: March 25, 2024 Child Psychologist Relationship Specialty Start Date End Date Pavan Dailey MD [address] [place] [address] PCP - General Family Medicine 11/06/23 Team Status: Inactive Member Role Status Dates Mildred Corral Primary Care Provider Active Sta rt: July 29, 2024 End: July 29, 2024 DANIEL Werner Attending Provider Active Start: July 29, 2024 End: July 29, 2024 Child Psychologist Relationship Specialty Start Date End Date Pavan Dailey MD [address] [place] [address] PCP - General Family Medicine 11/06/23 Child Psychologist Relationship Specialty Start Date End Date Pavan Dailey MD [address] [place] [phone] PCP - General Family Medicine 11/06/23 Child Psychologist Relationship Specialty Start Date End Date Pavan Dailey MD [address] [place] [address] PCP - General Family Medicine 11/06/23 Child Psychologist Relationship Specialty Start Date End Date Pavan Dailey MD [address] [place] [address] PCP - General Family Medicine 11/06/23 Child Psychologist Relationship Specialty Start Date End Date Pavan Dailey MD [address] [place] [address] PCP - General Family Medicine 11/06/23 Child Psychologist Relationship Specialty Start Date End Date Pavan Dailey MD [address] [place] [phone] PCP - General Family Medicine 11/06/23 Child Psychologist Relationship Specialty Start Date End Date Pavan Dailey MD [address] [place] [address] PCP - General Family Medicine 11/06/23 Child Psychologist Relationship Specialty Start Date End Date Pavan Dailey MD [address] [place] [address] PCP - General Family Medicine 11/06/23 Child Psychologist Relationship Specialty Start Date End Date Pavan Dailey MD [address] [place] [phone] PCP - General Family Medicine 11/06/23 Child Psychologist Relationship Specialty Start Date End Date Pavan Dailey MD [address] [place] [phone] PCP - General [facility] Medicine 11/06/23 Child Psychologist Relationship Specialty Start Date End Date Pavan Dailey MD [address] [place] [phone] PCP - General Family Medicine 11/06/23 Mildred Corral NP [address] [place] [phone] PCP - [facility] 01/07/25 Child Psychologist Relationship Specialty Start Date End Date Pavan Dailey MD [address] [place] [phone] PCP - General Family Medicine 11/06/23 Mildred Corral NP [address] [place] [address] PCP - [facility] 01/07/25 Child Psychologist Relationship Specialty Start Date End Date Pavan Dailey MD [address] [place] [phone] PCP - General Family Medicine 11/06/23 Mildred Corral NP [address] [place] [phone] PCP [facility] 01/07/25 Child Psychologist Relationship Specialty Start Date End Date Pavan Dailey MD [address] [place] [phone] PCP - General [facility] Medicine 11/06/23 Mildred Corral NP [address] [place] [phone] PCP [facility] 01/07/25 Child Psychologist Relationship Specialty Start Date End Date Pavan Dailey MD [address] [place] [address] PCP - General [facility] 11/06/23 Mildred Corral NP [address] [place] [address] [facility] 01/07/25 Goals (unrecognized section and content) [...] BE BASED ON THE PRIMARY CLINICAL RECORDS. [employer] provides no warranty or guarantee of the accuracy or completeness of information in this document.
--- NOTE | 2025-06-23 08:53 | PC.NURSE ---
Nursing Note Cardiac Stress Test Reviewed: Medication, allergies and patient history reviewed. Stress Test: [x ] Patient tolerated stress test well. [ ] Patient unable to tolerate walking on treadmill. Switched to Lexiscan stress test. [x ] No chest pain noted per patient [ ] Chest pain that resolved prior to leaving stress lab. [ ] No dyspnea noted. [x ] Dyspnea that resolved prior to leaving stress lab. [x ] Patient left stress lab asymptomatic and hemodynamically stable. [ ] Patient taken to the Emergency Room due to non-resolving symptoms following stress test. [x ] Patient achieved target heart rate. [ ] Patient unable to achieve target heart rate. [ ] Aminophylline administered as reversal agent to Lexiscan (Regadenoson). [ ] Nitro administered. Nursing Comments:Pt had Regular TM test. No CP but had SOB that he states is normal for him that resolved within 3 min rest.
--- NOTE | 2025-06-25 12:44 | PM.STRESS ---
Stress Test Stress Test Requesting physician: Mildred Corral Procedure: Stress test General Information: Reason for Stress Test: [CAD, HTN] Cardiac History and Risk Factors: [tobacco, CVD] Resting 12 - Lead Electrocardiogram: The baseline ekg shows normal sinus rhythm and is a normal ekg Stress Test: Protocol: [Sharif protocol] Exercise Capacity: [Reduced, completed stress at 3' 27 Sharif protocol] Blood Pressure Response: [normal] Rhythm: [Normal sinus] ST - Response: [ST depression in inferior leads] Patient Response: [short of breath and without chest pain] Interpretation: The stress test is positive for inferior ischemic ST depression without symptoms of chest pain at a normal HR and BP response but at a low duration of exercise
== END 2025-06-23 08:26 | disposition home or self-care (01) ==
LOC: CARD 08:25
PROVIDERS: PCP Nurse Practitioner; Visit Provider Nurse Practitioner
DX: I10 Essential (primary) hypertension (principal); I25.10 Atherosclerotic heart disease of native coronary artery without angina pectoris; E11.9 Type 2 diabetes mellitus without complications; Z72.0 Tobacco use
CPT/HCPCS: 93017

== ENCOUNTER 2025-07-17 10:01 | Outpatient (OUT) | payer BC, SELFPAY ==
--- NOTE | 2025-07-17 | NM_ITS ---
Patient Name: HAKEEM STARK MR#: [id number] : 1955 Exam Date: 07/17/2025 Ordering Doctor: PATTI DAVISON CNP RADIOLOGY REPORT PROCEDURE: NM MEL PERF SPECT REST STR COMPARISON: None. INDICATIONS: CORONARY ARTERY DISEASE, PRIMARY HTN, TYPE 2 DIABETES TECHNIQUE: Exam Description: Rest/Stress one day protocol gated SPECT Rest Imagin.2 mCi Tc-99m Cardiolite IV on 07/17/2025 Stress Imaging 32.4 mCi Tc-99m Cardiolite IV on 07/17/2025 Exercise Protocol: Sharif Heart Rate (bpm): Rest: 66 Max: 148 PMHR: 100 Blood Pressure: Rest: 136/68 Max: 174/78 Exercise Time: Minutes: 3 Seconds: 57 Stage Reached: Stage: 2 Mets 4.6 Symptoms: Rest and peak stress ECG findings were pending, and the exercise portion of the study was pending per attending physician [facility]. For more details, please see separate cardiac stress test report. FINDINGS: QUALITY OF STUDY: Good PERFUSION DEFECT: LOCATION: Inferior SIZE: Small SEVERITY: Moderate TYPE: Fixed, likely diaphragmatic attenuation WALL MOTION: Normal wall motion LV SIZE: 84 mL. TID / TCD: 0.7 LVEF: Calculated EF 67%. SUMMARY: Myocardial perfusion imaging study is normal CONCLUSION: 1. Myocardial perfusion is probably normal with diaphragmatic attenuation 2. Global left ventricular systolic function is normal; EF 67% 3. No significant transient ischemic dilatation Dictated by: Colby Esposito M.D. on 07/17/2025 at 15:53 Approved by: Colby Esposito M.D. on 07/17/2025 at 15:56
--- OUTSIDE RECORDS SUMMARY | 2025-07-17 10:15 | XMS_ITS | CCD ---
Author Organization [facility] Care Team Providers Care Pot Washer Name Role Phone MILDRED CORRAL Primary Care Physician AICHHOLZ, TANKERMAN MILDRED Admitting Unavailable AICHHOLZ, TANKERMAN MILDRED Attending Unavailable AICHHOLZ, TANKERMAN MILDRED Primary Care Unavailable AICHHOLZ, TANKERMAN MILDRED Consulting Unavailable AICHHOLZ, TANKERMAN MILDRED Admitting Unavailable AICHHOLZ, TANKERMAN MILDRED Attending Unavailable AICHHOLZ, TANKERMAN MILDRED Primary Care Unavailable AICHHOLZ, TANKERMAN MILDRED Consulting Unavailable PATRICK VAZQUEZ Consulting Unavailable AICHHOLZ, TANKERMAN MILDRED Admitting Unavailable AICHHOLZ, TANKERMAN MILDRED Attending Unavailable AICHHOLZ, TANKERMAN MILDRED Primary Care Unavailable SU ., DR BALDERRAMA Admitting Unavailable SU ., DR BALDERRAMA Attending Unavailable AICHHOLZ, TANKERMAN MILDRED Primary Care Unavailable SU ., DR BALDERRAMA Consulting Unavailable SAAB, MARSHA Consulting Unavailable SU ., DR BALDERRAMA Admitting Unavailable SU ., DR BALDERRAMA Attending Unavailable AICHHOLZ, TANKERMAN MILDRED Primary Care Unavailable SU ., DR BALDERRAMA Consulting Unavailable [place], DR YAIMA Hughes Consulting Unavailable LAURA NEGRON Consulting Unavailable TAMLYN ., SARTHAK Admitting Unavailable TAMLYN ., SARTHAK Attending Unavailable AICHHOLZ, TANKERMAN MILDRED Primary Care Unavailable TAMLYN ., SARTHAK Consulting Unavailable OFELIA BOONE Consulting Unavailable CARIDAD MILLER Consulting Unavailable Mildred Corral Primary Care Provider Mildred Corral Attending Provider [phone] Pavan Dailey MD Primary Care Provider [phone] Mildred Corral Primary Care Provider DANIEL Carpio [...] without long-term current use of insulin ([facility]) Take 1 tablet (80 mg) [...] Start: 01-17-2022 take 1 capsule by mo wvh once daily tamsulosin 0.4 mg Cap 0.4 mg = 1 cap(s), Oral, Daily, # 30 cap(s), Refills(s) 8, Pharmacy: [facility], 180, cm, 01/17/22 [...] Coronary arteriosclerosis; 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: [Atherosclerotic heart disease of [place] coronary artery without angina pectoris] Onset: 12-04-2023 [...] 12-04-2023 02-24-2022 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; 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: [TITLE ASSISTANT USE ORAL HYPOGLYCEMIC DX] Onset: 12-06-2022 Episodic [...] 02-24-2022 02-24-2022 Episodic Other aftercare (1 source) senior living (current) use of anticoagulants; 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: [TITLE ASSISTANT CURRNT USE ANTICOAGULANTS] Onset: 03-01-2022 Episodic Other [...] Interpretation and review of laboratory results Abnormal [facility] - Hematology and Cell countson 06-02-2025 HbA1c (Bld) [Mass fraction] 5.9 % [facility] Ambulatory Visit Summaryon 0 12-16-2024 Ambulatory Visit [...] AM EDT With: Where: [facility] [address] [id number] 8:20 AM EDT With: PRASHANT CORTES PA-C Where: [facility] [address] [phone]- You Need to Schedule the Following Appointments Follow Up with PRASHANT CORTES PA-C, URL When: In 1 year Where: [address] [place] [address] Medications What How Much When Instructions Changed tamsulosin (tamsulosin 0.4 mg Cap) 1 Capsules By Mouth Every day Duration: 90 Days Pickup at [facility] Unchanged aspirin (Aspirin 81 mg [...] physician if questions or concerns Pharmacy Information [facility]: [address] [place], [place] [id number] [phone] Allergies No Known Allergies Problems Ongoing - [...] airways (respi (more content not included)... Normal [facility] Urology Office/Clinic Noteon 12-16-2024 Urology Office/Clinic Note [...] E&M of Est. 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 [address] Additional Instructions: Patient Education Health [...] 10:50:00) Gluco (more content not included)... Normal [facility] Comment on above: Result Comment: Elec tronically Signed By: SOPHIA DIEZ, PRASHANT Gonzalez\.br\Date and Time Signed: 12/16/24 11:36 EDT MHPT PSA, DIAGNOSTICon 12-07 PROSTATE SPECIFIC ANTIGEN DX 0.56 ng/mL NINF - 4.00 ng/mL [facility] HbA1c (Bld) [Mass fraction]o n 12-02-2024 Interpretation and review of laboratory results Normal [facility] - Hematology and Cell countson 12-02-2024 HbA1c (Bld) [Mass fraction] 5.6 % [facility] Healthcare Provider Letteron 11-21-2024 Provider Letter Provider Letter November 21, 2024 HAKEEM STARK [address] [place] [id number] : 1955 Dear Hakeem, We have been [...] attention to this matter. Sincerely, [facility] [facility] [place] [address] [facility] [address] CHEST WO CONon 11-11-2024 [place] [address] [place] Scan Report Signed Patient: HAKEEM STARK MR#: [id number] : 1955 Acct:[id number] Age/Sex: 69 / M ADM Date: 11/11/24 Loc: CT Attending Dr: Neris Zavala D.O. Ordering Physician: Neris Zavala D.O. Date of Service: 11/11/24 Procedure(s): CT chest wo con Accession Number(s): [id number] cc: Mildred Corral NP [place] [id number] Patient Name: HAKEEM STARK MRN: [facility]:[id number] date: 1955 Sex: M Assigned Patient Location: CT Current Patient Location: CT Accession/Order Number: [id number] Exam Date: 11/11/2024 07:40 Report Date: 11/11/2024 [...] Signed By: 11/11/24 1641 DD/ 1639 TD/TT: Billing Analyst: [facility] Radiology, Radiologist, - 11/11/2024 [place] [address] CT Scan Report Signed Patient: HAKEEM STARK MR#: [id number] : 1955 Acct:[id number] Age/Sex: 69 / M ADM Date: 11/11/24 Loc: CT Attending Dr: Neris Zavala D.O. Ordering Physician: eNris Zavala D.O. Date of Service: 11/11/24 Procedure(s): CT chest wo con Accession Number(s): [id number] cc: Mildred Corral NP [place] [id number] Patient Name: HAKEEM STARK MRN: [facility]:[id number] date: 1955 Sex: M Assigned Patient Location: CT Current Patient Location: CT Accession/Order Number: [id number] Exam Date: 11/11/2024 07:40 Report Date: 11/11/2024 [...] Signed By: 11/11/24 1641 DD/ 1639 TD/TT: Billing Analyst: [facility] Radiology Study observation (narrative) [facility] CT CHEST WO CONOrdered By: Jerry adiologdinh Radiology on 11-11-2024 [facility] Work Phone: MR prostate wo conon 024 MR prostate wo con [facility] [place] [address] [place] [address] MRI Report Signed Patient: Hakeem Stark MR#: [id number] : 1955 Acct:[id number] Age/Sex: 69 / M ADM Date: 07/29/24 Loc: MR Room: Type: [facility] Attending Dr: Moni SANCHEZ Copies to: [...] 1231 Signed By: 07/31/24 1248 Normal [facility] ISTAT XRay CREon 07-29-2024 ISTAT GFR > 60.0 Normal [facility] Comment on above: Result Comment: PERF ORMED BY: [place] [address] PATHOLOGIST ASSISTANT MERCHANDISER ONEYDA GUEVARA M.D. Performed By: #### I SCRE #### [facility] [address] [place] [address] No Panel InformationOrdered By: Moni Carpio on 07-29-2024 Bedside Estimated GFR (eGFR) > 60.0 [facility] Whole blood creatinine measu rementOrdered By: Moni Carpio on 07-29-2024 Creatinine [Mass/Vol] 1.0 mg/dL Normal 0.6-1.3 [facility] Comment on above: ER/ESD physician is notified/shown all ISTAT results.Critical values may be confirmed by laboratory testing ifdeemed necessary by ER attending doctor. Result Comment: ER/E SD physician is notified/shown all ISTAT results. Critical values may be confirmed by laboratory testing if deemed necessary by ER attending doctor. Performed By: #### I SCRE #### [facility] [address] [place] [address] Ambulatory Visit Summaryon 0 06-25-2024 Ambulatory Visit [...] Following Appointments Follow Up with Balaji GARCIAN, CABIN MAN-C, Moni X, FAM, URL When: Comments: pending [...] tract infectio (more content not included)... Normal [facility] Capillary blood glucose alex urement by glucometer (mass/volume)Ordered By: Mildred Corral on 03-25-2024 Glucose [Mass/Vol] 130 mg/dL Normal [facility] Comment on above: Random Glucose Refer ence Range is dependent on time and content of last meal. Glucose of more than 200 mg/dL in a nonstressed, ambulatory subject supports the diagnosis of Diabetes Mellitus. Result Comment: [place] Glucose Reference Range is dependent on time and content of last meal. Glucose of more than 200 mg/dL in a nonstressed, ambulatory subject supports the diagnosis of Diabetes Mellitus. PERFORMED BY: [facility] [address] [place] [address] PATHOLOGIST ASSISTANT MERCHANDISER ONEYDA GUEVARA M.D. Performed By: #### G LU #### Point of Care testing , PET tumor init tx strat sb-m [place] 03-25-2024 PET tumor init tx strat sb-mt [facility] [address] [place] [address] Nuclear Medicine Report Signed Patient: Hakeem Stark MR#: [id number] : 1955 Acct:[id number] Age/Sex: 68 / M ADM Date: 03/25/24 Loc: Room: Type: [facility] Attending Dr: Mildred Corral Copies to: [...] Wadsworth Jr., D.O.03/25/2024 11:58 AM Dictation Location: [place] [address] Transcribed By: [facility] 03/25/24 1158 Dictated By: Galen Wadsworth Jr, DO 03/25/24 1150 Signed By: 03/25/24 1158 Normal [facility] Glucose Poct Glucometerson 0 03-18-2024 Glucose [Mass/Vol] 115 mg/dL Normal [facility] Comment on above: Result Comment: [facility] Glucose Reference Range is dependent on time and content of last meal. Glucose of more than 200 mg/dL in a nonstressed, ambulatory subject supports the diagnosis of Diabetes Mellitus. PERFORMED BY: [facility] [place] [address] PATHOLOGIST ASSISTANT MERCHANDISER ONEYDA GUEVARA M.D. Performed By: #### G [...] Please consider referral for smoking cessation to [facility] (MTM) if clinically appropriate. [...] two extremes (Agatston score 101-1000). https://pubs.rsna.o rg/doi/abs/10.1148/ radiol.[email or web address] Electronically authenticated by: PATRICK VAZQUEZ Date: 2022-11-05 20:06 Normal [facility] GLYCOHEMOGLOBIN A1Con 2022 ADA RECOMMENDATION SEE BELOW Normal [facility] Comment on above: Result Comment: ADA RECOMMENDED LIMIT 4.0 - 6.0 ADA THERAPEUTIC TARGET < 7.0 ACTION SUGGESTED > 7.0 Performed By: #### A 1C #### [facility] [address] [place] [address] Dr. Gigi To Glucose [Mass/Vol] 117 mg/dL Normal [facility] Comment on above: Performed By: #### A 1C #### [facility] [address] [place] [address] [address] Gigi To HbA1c (Bld) [Mass fraction] 5.7 % Normal 4.5-6.2 [facility] Comment on above: Performed By: #### A 1C #### [facility] [address] [place] [address] Dr. Gigi To PROF CHEM 8 (BAS METB)on Anion gap [Moles/Vol] 16.1 mmol/L Normal [facility] Comment on above: Performed By: #### B MP #### [facility] [address] [place] [address] Dr. Gigi To Calcium [Mass/Vol] 9.4 mg/dL Normal 8.5-10.1 [facility] Comment on above: Performed By: #### B MP #### [facility] [address] [place] [address] Dr. Gigi To Chloride [Moles/Vol] 105 mmol/L Normal 98-107 [facility] Comment on above: Performed By: #### B MP #### [facility] [address] [place] [address] [address] Gigi To CO2 [Moles/Vol] 25.8 mmol/L Normal 21.0-32.0 [facility] Comment on above: Performed By: #### B MP #### [facility] [address] [place] [address] [address] Gigi To Creatinine [Mass/Vol] 1.02 mg/dL Normal 0.70-1.30 [facility] Comment on above: Performed By: #### B MP #### [facility] [address] [place] [address] [address] Gigi To EGFR-AF [place]ER >60 Normal >=60 [facility] Comment on above: Performed By: #### B MP #### [facility] [address] [place] [address] [address] Gigi To EGFR-NON AF [place]ER >60 Normal >=60 [facility] Comment on above: Performed By: #### B MP #### [facility] [address] [place] [address] [address] Gigi To Glucose [Mass/Vol] 109 mg/dL Critically high 74-106 [facility] Comment on above: Performed By: #### B MP #### [facility] [address] [place] [address] [address] Gigi To Potassium [Moles/Vol] 4.9 mmol/L Normal 3.5-5.1 [facility] Comment on above: Performed By: #### B MP #### [facility] [address] [place] [address] [address] Gigi To Sodium [Moles/Vol] 142 mmol/L Normal 136-145 [facility] Comment on above: Performed By: #### B MP #### [facility] [address] [place] [address] [address] Gigi To Urea nitrogen [Mass/Vol] 25.0 mg/dL Critically high 7.0-18.0 [facility] Comment on above: Performed By: #### B MP #### [facility] [address] [place] [address] Dr. Gigi To Urea nitrogen/Creatinine [Mass ratio] 24.5 mg/mg Normal [facility] Comment on above: Performed By: #### B MP #### [facility] [address] [place] [address] Dr. Gigi To CBC AUTO DIFFon 03-19-2022 BASO # 0.1 103/ul Normal 0.0-0.1 [facility] Comment on above: Performed By: #### C BC #### [facility] [address] [place] [address] Dr. Gigi To Basophils/100 WBC (Bld) 0.5 % Normal 0.2-2.0 [facility] Comment on above: Performed By: #### C BC #### [facility] [address] [place] [address] Dr. Gigi To EO # 0.3 103/ul Normal 0.0-0.7 [facility] Comment on above: Performed By: #### C BC #### [facility] [address] [place] [address] Dr. Gigi To Eosinophils/100 WBC (Bld) 2.7 % Normal 0.9-7.0 [facility] Comment on above: Performed By: #### C BC #### [facility] [address] [place] [address] Dr. Gigi To Erythrocyte distribution width (RBC) [Ratio] 14.0 % Normal 11.0-15.0 [facility] Comment on above: Performed By: #### C BC #### [facility] [address] [place] [address] Dr. Gigi To Hematocrit (Bld) [Volume fraction] 43.7 % Normal 42.0-54.0 [facility] Comment on above: Performed By: #### C BC #### [facility] [address] [place] [address] Dr. Gigi To Hemoglobin (Bld) [Mass/Vol] 14.4 g/dL Normal 14.0-18.0 [facility] Comment on above: Performed By: #### C BC #### [facility] [address] [place] [address] Dr. Gigi To IG # 0.03 10e3/ul Normal 0.00-0.03 [facility] Comment on above: Performed By: #### C BC #### [facility] [address] [place] [address] Dr. Gigi To IG % 0.3 % Normal 0.0-0.5 [facility] Comment on above: Performed By: #### C BC #### [facility] [address] [place] [address] Dr. Gigi To LYMPH # 2.9 103/ul Normal 1.2-3.8 [facility] Comment on above: Performed By: #### C BC #### [facility] [address] [place] [address] Dr. Gigi To Lymphocytes/100 WBC (Bld) 29.4 % Normal 20.5-60.0 [facility] Comment on above: Performed By: #### C BC #### [facility] [address] [place] [address] Dr. Gigi To MANUAL DIFF REQ NO Normal [facility] Comment on above: Performed By: #### C BC #### [facility] [address] [place] [address] Dr. Gigi To MCH (RBC) [Entitic mass] 32.2 pg Normal 25.9-34.0 [facility] Comment on above: Performed By: #### C BC #### [facility] [address] [place] [address] Dr. Gigi To MCHC (RBC) [Mass/Vol] 33.0 g/dL Normal 29.9-35.2 [facility] Comment on above: Performed By: #### C BC #### [facility] [address] [place] [address] Dr. Gigi To MCV (RBC) [Entitic vol] 97.8 fL Critically high 80.0-94.0 [facility] Comment on above: Performed By: #### C BC #### [facility] [address] [place] [address] [address] Gigi To MONO # 0.8 103/ul Normal 0.3-0.8 [facility] Comment on above: Performed By: #### C BC #### [facility] [address] [place] [address] [address] Gigi To Monocytes/100 WBC (Bld) 8.6 % Normal 1.7-12.0 [facility] Comment on above: Performed By: #### C BC #### [facility] [address] [place] [address] Dr. Gigi To NEUT # 5.7 103/ul Normal 1.4-6.5 [facility] Comment on above: Performed By: #### C BC #### [facility] [address] [place] [address] Dr. Gigi To Neutrophils/100 WBC (Bld) 58.5 % Normal 43.0-75.0 [facility] Comment on above: Performed By: #### C BC #### [facility] [address] [place] [address] Dr. Gigi To Platelet mean volume (Bld) [Entitic vol] 8.7 fL Critically low 9.5-13.5 [facility] Comment on above: Performed By: #### C BC #### [facility] [address] [place] [address] Dr. Gigi To PLT 280 103/ul Normal 150-450 [facility] Comment on above: Performed By: #### C BC #### [facility] [address] [place] [address] Dr. Gigi To RBC 4.47 106/ul Critically low 4.70-6.10 [facility] Comment on above: Performed By: #### C BC #### [facility] [address] [place] [address] Dr. Gigi To WBC 9.8 103/ul Normal 4.0-11.0 [facility] Comment on above: Performed By: #### C BC #### [facility] [address] [place] [address] Dr. Gigi To GLYCOHEMOGLOBIN A1Con 2021 ADA RECOMMENDATION SEE BELOW Normal [facility] Comment on above: Result Comment: ADA RECOMMENDED LIMIT 4.0 - 6.0 ADA THERAPEUTIC TARGET < 7.0 ACTION SUGGESTED > 7.0 Performed By: #### A 1C #### [facility] [address] [place] [address] Dr. Gigi To Glucose [Mass/Vol] 126 mg/dL Normal [facility] Comment on above: Performed By: #### A 1C #### [facility] [address] [place] [address] [address] Gigi To HbA1c (Bld) [Mass fraction] 6.0 % Normal 4.5-6.2 [facility] Comment on above: Performed By: #### A 1C #### [facility] [address] [place] [address] Dr. Gigi To LIPID PROFILEon 03-19-2022 CHOL-HDL RATIO NORM SEE BELOW Normal [facility] Comment on above: Result Comment: 3.3 - 4.4 LOW RISK 4.4 - 7.1 AVERAGE RISK 7.1 - 11.0 MODERATE RISK >11.0 HIGH RISK Performed By: #### L IPID, CMP #### [facility] [address] [place] [address] Dr. Gigi To Cholesterol [Mass/Vol] 105 mg/dL Normal <=200 [facility] Comment on above: Performed By: #### L IPID, CMP #### [facility] [address] [place] [address] Dr. Gigi To Cholesterol in HDL [Mass/Vol] 29 mg/dL Critically low 40-60 [facility] Comment on above: Performed By: #### L IPID, CMP #### [facility] [address] [place] [address] Dr. Gigi To Cholesterol in LDL [Mass/Vol] 26.8 mg/dL Normal [facility] Comment on above: Performed By: #### L IPID, CMP #### [facility] [address] [place] [address] Dr. Gigi To Cholesterol.total/Chol esterol in HDL [Mass ratio] 3.6 {ratio} Normal [facility] Comment on above: Performed By: #### L IPID, CMP #### [facility] [address] [place] [address] [address] Gigi To HDL NORMAL > or = 60 mg/dl - LOW CARDIOVASCULAR RISK <40 mg/dl - HIGH CARDIOVASCULAR RISK Normal [facility] Comment on above: Performed By: #### L IPID, CMP #### [facility] [address] [place] [address] [address] Gigi To LDL CALC NORMAL SEE BELOW Normal [facility] Comment on above: Result Comment: <100 mg/dl OPTIMAL 100 - 129 mg/dl NEAR OR ABOVE OPTIMAL 130 - 159 mg/dl BORDERLINE HIGH 160 - 189 mg/dl HIGH >190 mg/dl VERY HIGH Performed By: #### L IPID, CMP #### [facility] [address] [place] [address] [address] Gigi To Triglyceride [Mass/Vol] 246 mg/dL Critically high <=150 [facility] Comment on above: Performed By: #### L IPID, CMP #### [facility] [address] [place] [address] [address] Gigi To VLDL CALC 49.2 mg/dL Normal [facility] Comment on above: Performed By: #### L IPID, CMP #### [facility] [address] [place] [address] [address] Gigi To MICROALBUMIN, RAND URon - mALB 1.5 mg/L Normal <=30.0 [facility] Comment on above: Performed By: #### M ALBR #### [facility] [address] [place] [address] [address] Gigi To PROF 14(COMP METB)on 022 Albumin [Mass/Vol] 3.9 g/dL Normal 3.4-5.0 [facility] Comment on above: Performed By: #### L IPID, CMP #### [facility] [address] [place] [address] [address] Gigi To Albumin/Globulin [Mass ratio] 1.1 {ratio} Normal [facility] Comment on above: Performed By: #### L IPID, CMP #### [facility] [address] [place] [address] Dr. Gigi To ALP [Catalytic activity/Vol] 42 U/L Critically low 46-116 [facility] Comment on above: Performed By: #### L IPID, CMP #### [facility] [address] [place] [address] Dr. Gigi To ALT [Catalytic activity/Vol] 30 U/L Normal 16-63 [facility] Comment on above: Performed By: #### L IPID, CMP #### [facility] [address] [place] [address] Dr. Gigi To Anion gap [Moles/Vol] 14.5 mmol/L Normal [facility] Comment on above: Performed By: #### L IPID, CMP #### [facility] [address] [place] [address] Dr. Gigi To AST [Catalytic activity/Vol] 17 U/L Normal 15-37 [facility] Comment on above: Performed By: #### L IPID, CMP #### [facility] [address] [place] [address] Dr. Gigi To Bilirubin [Mass/Vol] 0.4 mg/dL Normal 0.2-1.0 [facility] Comment on above: Performed By: #### L IPID, CMP #### [facility] [address] [place] [address] Dr. Gigi To Calcium [Mass/Vol] 9.4 mg/dL Normal 8.5-10.1 [facility] Comment on above: Performed By: #### L IPID, CMP #### [facility] [address] [place] [address] Dr. Gigi To Chloride [Moles/Vol] 105 mmol/L Normal 98-107 [facility] Comment on above: Performed By: #### L IPID, CMP #### [facility] [address] [place] [place] [address] Dr. Gigi To CO2 [Moles/Vol] 27.7 mmol/L Normal 21.0-32.0 [facility] Comment on above: Performed By: #### L IPID, CMP #### [facility] [address] [place] [address] Dr. Gigi To Creatinine [Mass/Vol] 1.00 mg/dL Normal 0.70-1.30 [facility] Comment on above: Performed By: #### L IPID, CMP #### [facility] [address] [address] [address] Gigi To EGFR-AF NEW ZEALANDER >60 Normal >=60 [facility] Comment on above: Performed By: #### L IPID, CMP #### [facility] [address] [place] [address] Dr. Gigi To EGFR-NON AF NEW ZEALANDER >60 Normal >=60 [facility] Comment on above: Performed By: #### L IPID, CMP #### [facility] [address] [place] [address] Dr. Gigi To Globulin (S) [Mass/Vol] 3.5 g/dL Normal [facility] Comment on above: Performed By: #### L IPID, CMP #### [facility] [address] [place] [address] Dr. Gigi To Glucose [Mass/Vol] 108 mg/dL Critically high 74-106 T [facility] Comment on above: Performed By: #### L IPID, CMP #### [facility] [address] [place] [address] Dr. Gigi To Potassium [Moles/Vol] 4.2 mmol/L Normal 3.5-5.1 [facility] Comment on above: Performed By: #### L IPID, CMP #### [facility] [address] [place] [address] Dr. Gigi To Protein [Mass/Vol] 7.4 g/dL Normal 6.4-8.2 [facility] Comment on above: Performed By: #### L IPID, CMP #### [facility] [address] [place] [address] Dr. Gigi To Sodium [Moles/Vol] 143 mmol/L Normal 136-145 [facility] Comment on above: Performed By: #### L IPID, CMP #### [facility] [address] [address] [address] Gigi To Urea nitrogen [Mass/Vol] 21.0 mg/dL Critically high 7.0-18.0 [facility] Comment on above: Performed By: #### L IPID, CMP #### [facility] [address] [address] [address] Gigi To Urea nitrogen/Creatinine [Mass ratio] 21.0 mg/mg Normal [facility] Comment on above: Performed By: #### L IPID, CMP #### [facility] [address] [place] [address] Dr. Gigi To CHEMISTRYOrdered By: Lab ROP User on 02-24-2022 Glucose [Mass/Vol] 119 mg/dL High 55 - 99 mg/dL FTM C POC Subsection Comment on above: Result Comment: Isha priti Meter POC Device SN [id number] Invalid Interpretation Code [facility] POC Subsection POC User ID [id number] Invalid Interpretation Code [facility] POC Subsection POC Username IQRA DODSON Invalid Interpretation Code [facility] POC Subsection XR KUB 1 VIEWon 02-24-2022 [...] YAIMA NOONAN Date: 2022-02-24 07:22 Normal [facility] CBC AUTO DIFFon 02-21-2022 BASO # 0.1 103/ul Normal 0.0-0.1 [facility] Comment on above: Performed By: #### A 1C #### [facility] [address] [place] [address] Dr. Gigi To Basophils/100 WBC (Bld) 0.6 % Normal 0.2-2.0 [facility] Comment on above: Performed By: #### A 1C #### [facility] [address] [place] [address] Dr. Gigi To EO # 0.2 103/ul Normal 0.0-0.7 [facility] Comment on above: Performed By: #### A 1C #### [facility] [address] [place] [address] Dr. Gigi To Eosinophils/100 WBC (Bld) 1.9 % Normal 0.9-7.0 [facility] Comment on above: Performed By: #### A 1C #### [facility] [address] [place] [address] Dr. Gigi To Erythrocyte distribution width (RBC) [Ratio] 14.3 % Normal 11.0-15.0 [facility] Comment on above: Performed By: #### A 1C #### [facility] [address] [place] [address] Dr. Gigi To Hematocrit (Bld) [Volume fraction] 40.4 % Critically low 42.0-54.0 [facility] Comment on above: Performed By: #### A 1C #### [facility] [address] [place] [address] Dr. Gigi To Hemoglobin (Bld) [Mass/Vol] 13.4 g/dL Critically low 14.0-18.0 [facility] Comment on above: Performed By: #### A 1C #### [facility] [address] [place] [address] Dr. Gigi To IG # 0.02 10e3/ul Normal 0.00-0.03 [facility] Comment on above: Performed By: #### A 1C #### [facility] [address] [place] [address] Dr. Gigi To IG % 0.3 % Normal 0.0-0.5 [facility] Comment on above: Performed By: #### A 1C #### [facility] [address] [place] [address] Dr. Gigi To LYMPH # 2.4 103/ul Normal 1.2-3.8 [facility] Comment on above: Performed By: #### A 1C #### [facility] [address] [place] [address] Dr. Gigi To Lymphocytes/100 WBC (Bld) 30.7 % Normal 20.5-60.0 [facility] Comment on above: Performed By: #### A 1C #### [facility] [address] [place] [address] Dr. Gigi To MANUAL DIFF REQ NO Normal [facility] Comment on above: Performed By: #### A 1C #### [facility] [address] [place] [address] Dr. Gigi To MCH (RBC) [Entitic mass] 31.8 pg Normal 25.9-34.0 [facility] Comment on above: Performed By: #### A 1C #### [facility] [address] [place] [address] Dr. Gigi To MCHC (RBC) [Mass/Vol] 33.2 g/dL Normal 29.9-35.2 [facility] Comment on above: Performed By: #### A 1C #### [facility] [address] [place] [address] Dr. Gigi To MCV (RBC) [Entitic vol] 95.7 fL Critically high 80.0-94.0 [facility] Comment on above: Performed By: #### A 1C #### [facility] [address] [place] [address] Dr. Gigi To MONO # 0.8 103/ul Normal 0.3-0.8 [facility] Comment on above: Performed By: #### A 1C #### [facility] [address] [place] [address] Dr. Gigi To Monocytes/100 WBC (Bld) 10.0 % Normal 1.7-12.0 [facility] Comment on above: Performed By: #### A 1C #### [facility] [address] [place] [address] Dr. Gigi To NEUT # 4.4 103/ul Normal 1.4-6.5 [facility] Comment on above: Performed By: #### A 1C #### [facility] [address] [address] [address] Gigi To Neutrophils/100 WBC (Bld) 56.5 % Normal 43.0-75.0 [facility] Comment on above: Performed By: #### A 1C #### [facility] [address] [address] [address] Gigi To Platelet mean volume (Bld) [Entitic vol] 9.1 fL Critically low 9.5-13.5 [facility] Comment on above: Performed By: #### A 1C #### [facility] [address] [place] [address] Dr. Gigi To PLT 256 103/ul Normal 150-450 [facility] Comment on above: Performed By: #### A 1C #### [facility] [address] [place] [address] Dr. Gigi To RBC 4.22 106/ul Critically low 4.70-6.10 [facility] Comment on above: Performed By: #### A 1C #### [facility] [address] [address] [address] Gigi To WBC 7.8 103/ul Normal 4.0-11.0 [facility] Comment on above: Performed By: #### A 1C #### [facility] [address] [place] [address] Dr. Gigi To PROF CHEM 8 (BAS METB)on Anion gap [Moles/Vol] 13.6 mmol/L Normal [facility] Comment on above: Performed By: #### B MP #### [facility] [address] [address] [address] Gigi To Calcium [Mass/Vol] 9.2 mg/dL Normal 8.5-10.1 [facility] Comment on above: Performed By: #### B MP #### [facility] [address] [address] [address] Gigi To Chloride [Moles/Vol] 104 mmol/L Normal 98-107 [facility] Comment on above: Performed By: #### B MP #### [facility] [address] [address] [address] Gigi To CO2 [Moles/Vol] 26.9 mmol/L Normal 21.0-32.0 [facility] Comment on above: Performed By: #### B MP #### [facility] [address] [address] [address] Gigi To Creatinine [Mass/Vol] 0.95 mg/dL Normal 0.70-1.30 [facility] Comment on above: Performed By: #### B MP #### [facility] [address] [address] [address] Gigi To EGFR-AF NEW ZEALANDER >60 Normal >=60 [facility] Comment on above: Performed By: #### B MP #### [facility] [address] [address] [address] Gigi To EGFR-NON AF NEW ZEALANDER >60 Normal >=60 [facility] Comment on above: Performed By: #### B MP #### [facility] [address] [address] [address] Gigi To Glucose [Mass/Vol] 121 mg/dL Critically high 74-106 [facility] Comment on above: Performed By: #### B MP #### [facility] [address] [address] [address] Gigi To Potassium [Moles/Vol] 4.5 mmol/L Normal 3.5-5.1 [facility] Comment on above: Performed By: #### B MP #### [facility] [address] [address] [address] Gigi To Sodium [Moles/Vol] 140 mmol/L Normal 136-145 [facility] Comment on above: Performed By: #### B MP #### [facility] [address] [address] [address] Gigi To Urea nitrogen [Mass/Vol] 15.0 mg/dL Normal 7.0-18.0 [facility] Comment on above: Performed By: #### B MP #### [facility] [address] [place] [address] Dr. Gigi To Urea nitrogen/Creatinine [Mass ratio] 15.8 mg/mg Normal [facility] Comment on above: Performed By: #### B MP #### [facility] [address] [place] [address] Dr. Gigi To PROTIMEon 02-21-2022 INR Coag (PPP) [Relative time] 0.99 {INR} Normal [facility] Comment on above: Performed By: #### A 1C #### [facility] [address] [place] [address] Dr. Gigi To INR GUIDELINES SEE BELOW Normal [facility] Comment on above: Result Comment: ASHLEY RED INR: 2.0 - 3.0 CONDITIONS NOT LISTED BELOW 2.5 - 3.5 FOR PROSTHETIC HEART VALVE REPLACEMENT 2.5 - 3.5 RECURRENT THROMBOSIS Performed By: #### A 1C #### [facility] [address] [place] [address] Dr. Gigi To PT Coag (PPP) [Time] 10.7 s Normal 9.0-11.6 [facility] Comment on above: Performed By: #### A 1C #### [facility] [address] [place] [address] Dr. Gigi To PTTon 02-21-2022 aPTT Coag (Bld) [Time] 26.2 s Normal 22.3-36.2 [facility] Comment on above: Performed By: #### A 1C #### [facility] [address] [place] [address] Dr. Gigi To Vital Signs Date Time Vital Sign Value Performing Clinician Facility 06-02-2025 08:38-0400 Body mass index (BMI) [Ratio] 32.13 kg/m2 Mildred Corral [employer] Work Phone: [facility] 06-02-2025 08:38-0400 Body temperature 97.81 [degF] Mildred Corral [employer] Work Phone: [facility] 06-02-2025 08:38-0400 Body weight 104.51 kg Mildred Aichholz [employer] Work Phone: [facility] 06-02-2025 08:38-0400 Diastolic blood pressure 82 mm[Hg] Mildred Aichholz [employer] Work Phone: [facility] 06-02-2025 08:38-0400 Heart rate 91 /min Mildred Aichholz [employer] Work Phone: [facility] 06-02-2025 08:38-0400 Respiratory rate 20 /min Mildred Aichholz [employer] Work Phone: [facility] 06-02-2025 08:38-0400 SaO2% (BldA) [Mass fraction] 97 % Mildred Aichholz [employer] Work Phone: [facility] 06-02-2025 08:38-0400 Systolic blood pressure 138 mm[Hg] Mildred Aichholz [employer] Work Phone: [facility] 02-24-2025 08:38-0400 Body mass index (BMI) [Ratio] 31.52 kg/m2 Mildred Aichholz [employer] Work Phone: [facility] 02-24-2025 08:38-0400 Body temperature 97.81 [degF] Mildred Gersonhholz [employer] Work Phone: [facility] 02-24-2025 08:38-0400 Body weight 102.51 kg Mildred Gersonhholz [employer] Work Phone: [facility] 02-24-2025 08:38-0400 Diastolic blood pressure 76 mm[Hg] Mildred Aichholz [employer] Work Phone: [facility] 02-24-2025 08:38-0400 Heart rate 92 /min Mildred Aichholz [employer] Work Phone: [facility] 02-24-2025 08:38-0400 Respiratory rate 18 /min Mildred Aichholz [employer] Work Phone: [facility] 02-24-2025 08:38-0400 SaO2% (BldA) [Mass fraction] 98 % Mildred Corral [employer] Work Phone: [facility] 02-24-2025 08:38-0400 Systolic blood pressure 134 mm[Hg] Mildredjudd Paynez [employer] Work Phone: [facility] 12-02-2024 08:43-0500 Body mass index (BMI) [Ratio] 31.77 kg/m2 Mildredjudd Paynez [employer] Work Phone: [facility] 12-02-2024 08:43-0500 Body temperature 98.49 [degF] Mildred Elmerz [employer] Work Phone: [facility] 12-02-2024 08:43-0500 Body weight 103.33 kg Mildred Paynez [employer] Work Phone: [facility] 12-02-2024 08:43-0500 Diastolic blood pressure 78 mm[Hg] Mildred Paynez [employer] Work Phone: [facility] 12-02-2024 08:43-0500 Heart rate 101 /min Mildred Lolaholz [employer] Work Phone: [facility] 12-02-2024 08:43-0500 Respiratory rate 20 /min Mildredjudd Paynez [employer] Work Phone: [facility] 12-02-2024 08:43-0500 SaO2% (BldA) [Mass fraction] 95 % Mildredjudd Paynez [employer] Work Phone: [facility] 12-02-2024 08:43-0500 Systolic blood pressure 128 mm[Hg] Mildred Elmerz [employer] Work Phone: [facility] 06-03-2024 08:37-0400 Body mass index (BMI) [Ratio] 32.64 kg/m2 Mildredjudd Davilaholz [employer] Work Phone: [facility] 06-03-2024 08:37-0400 Body temperature 97.9 [degF] Mildred Lloaholz [employer] Work Phone: [facility] 06-03-2024 08:37-0400 Body weight 106.14 kg Mildred Gersonhholz [employer] Work Phone: [facility] 06-03-2024 08:37-0400 Diastolic blood pressure 80 mm[Hg] Mildred Aichholz [employer] Work Phone: [facility] 06-03-2024 08:37-0400 Heart rate 89 /min Mildred Aichholz [employer] Work Phone: [facility] 06-03-2024 08:37-0400 SaO2% (BldA) [Mass fraction] 95 % Mildred Aichholz [employer] Work Phone: [facility] 06-03-2024 08:37-0400 Systolic blood pressure 140 mm[Hg] Mildred Aichholz [employer] Work Phone: [facility] 03-25-2024 07:46-0400 Body height 180.34 cm Mildred Gersonhholz Work Phone: [facility] 03-25-2024 07:46-0400 Body weight 104.32 kg Mildred Gesronhholz Work Phone: [facility] 02-24-2022 17:16-0400 Blood Pressure Location [facility] 02-24-2022 17:16-0400 BP/Pulse Patient Position [facility] 02-24-2022 17:16-0400 Diastolic blood pressure 80 mm[Hg] [facility] 02-24-2022 17:16-0400 Heart rate 85 /min [facility] 02-24-2022 17:16-0400 Mean blood pressure 103 mm[Hg] [facility] 02-24-2022 17:16-0400 Respiratory rate 18 /min [facility] 02-24-2022 17:16-0400 SaO2% (BldA) [Mass fraction] 97 % [facility] 02-24-2022 17:16-0400 Systolic blood pressure 150 mm[Hg] [facility] 02-24-2022 16:20-0400 Blood Pressure Location [facility] 02-24-2022 16:20-0400 Diastolic blood pressure 90 mm[Hg] [facility] 02-24-2022 16:20-0400 Heart rate 84 /min [facility] 02-24-2022 16:20-0400 Respiratory rate 18 /min [facility] 02-24-2022 16:20-0400 SaO2% (BldA) [Mass fraction] 96 % [facility] 02-24-2022 16:20-0400 Systolic blood pressure 150 mm[Hg] [facility] 02-24-2022 16:13-0400 Body temperature 97.34 [degF] [facility] 02-24-2022 16:13-0400 Diastolic blood pressure 95 mm[Hg] [facility] 02-24-2022 16:13-0400 Heart rate 94 /min [facility] 02-24-2022 16:13-0400 Respiratory rate 15 /min [facility] 02-24-2022 16:13-0400 SaO2% (BldA) [Mass fraction] 95 % [facility] 02-24-2022 16:13-0400 Systolic blood pressure 154 mm[Hg] [facility] 02-24-2022 16:00-0400 Respiratory rate 24 /min [facility] 02-24-2022 15:55-0400 Respiratory rate 18 /min [facility] 02-24-2022 15:48-0400 Body temperature 97.16 [degF] [facility] 02-24-2022 15:45-0400 Respiratory rate 1 /min [facility] 02-24-2022 10:49-0400 Blood Pressure Location [facility] 02-24-2022 10:49-0400 Mean blood pressure 100 mm[Hg] [facility] 02-24-2022 10:47-0400 Body temperature 98.06 [degF] [facility] 02-24-2022 10:47-0400 Mean blood pressure 115 mm[Hg] [facility] 02-24-2022 10:47-0400 Heart rate 96 /min [facility] Encounters Encounter Date Encounter Type Care Provider Facility Start: 12-22-2025 ambulatory PRASHANT CORTES Facili ty:[facility] Start: 12-15-2025 ambulatory PRASHANT CORTES Facili ty:[facility] [place] Start: 06-02-2025 End: 08-25-2025 Bamboo flowsheet Mildred Shayna [employer] Work Phone: [facility] Start: 06-02-2025 End: 06-02-2025 Bamboo flowsheet Mildred Shayna [employer] TE[employer] Work Phone: [facility] Start: 06-02-2025 End: 06-02-2025 Office outpatient visit 25 minutes Mildred Shayna [employer] Work Phone: [facility] Comment on above: Primary hypertension (Primary Dx); Coronary artery disease involving tat[place]k coronary artery of tat[place] heart without angina pectoris ; Type 2 [...] 04-22-2025 End: 04-22-2025 Telephone encounter Mildred Corral [employer] Work Phone: [facility] Start: 02-24-2025 End: 02-24-2025 Bamboo flowsheet Mildred Shayna [employer] TE[employer] Work Phone: [facility] Start: 02-24-2025 End: 02-24-2025 Bamboo flowsheet Mildred Shayna [employer] TE[employer] Work Phone: [facility] Start: 02-24-2025 End: 02-24-2025 Office outpatient visit 25 minutes Mildred Shayna [employer] TE[employer] Work Phone: [facility] Comment on above: Coronary artery dise ase involving tat[place]k coronary artery of [place] heart without angina pectoris (CMS/HCC) (Primary Dx); [...] Start: 02-11-2025 End: 02-11-2025 Refill Mildred Lolaholz [employer] Work Phone: [facility] Comment on above: Sciatica, unspecifie d laterality (Primary Dx) Start: 12-16-2024 End: 12-16-2024 ambulatory PRASHANT CORTES Facility:[facility] Start: 12-07-2024 End: 12-07-2024 Clinisync Result Encounter Generic External Data Provider [facility] External Department Unsolicited Start: 12-07-2024 End: 12-07-2024 Clinisync Result Encounter Generic External Data Provider [facility] External Department Unsolicited Start: 12-02-2024 End: 12-02-2024 Bamboo flowsheet Mildred Elmerz [employer] Work Phone: [facility] Start: 12-02-2024 End: 12-02-2024 Bamboo flowsheet Mildred Aichholz [employer] Work Phone: [facility] Start: 12-02-2024 End: 12-02-2024 Office outpatient visit 25 minutes Mildred Shayna [employer] Work Phone: [facility] Comment on above: Type 2 diabetes rah itus without complication, without long- term current use of insulin (CMS/HCC) (Primary Dx); Type 2 diabetes mellitus without complications (CMS/HCC); Centrilobular emphysema (CMS/HCC); Multiple pulmonary nodules; Coronary artery disease involving tat[place]k coronary artery of [place] heart without angina pectoris (CMS/HCC); Primary hypertension [...] Start: 12-02-2024 End: 12-02-2024 Refill Mildred Elmerz [employer] Work Phone: [facility] Comment on above: Type 2 diabetes rah itus without complications ([facility]); Primary hypertension ([facility]); Type 2 diabetes mellitus without complication, without long-term current use of insulin ([facility]); Controlled type 2 diabetes mellitus without complication, without long-term current use of insulin ([facility]); Benign prostatic hyperplasia, unspecified whether lower urinary tract symptoms present Start: 11-28-2024 End: 11-28-2024 Refill Pavan Dailey MD Work Phone: [facility] Comment on above: Primary hypertension ([facility]) Start: 11-11-2024 End: 11-11-2024 Clinisync Result Encounter Generic External Data Provider [facility] External Department Unsolicited Start: 11-11-2024 End: 11-11-2024 Clinisync Result Encounter Generic External Data Provider [facility] External Department Unsolicited Start: 08-19-2024 End: 08-19-2024 Orders Only Mildred Shayna [employer] Work Phone: [facility] Comment on above: Lung nodule, multipl e (Primary Dx) Start: 08-08-2024 End: 08-08-2024 Refill Mildred Elmerz [employer] Work Phone: [facility] Comment on above: Type 2 diabetes rah itus without complication, without long- term current use of insulin ([facility]) Start: 07-29-2024 End: 07-29-2024 Patient encounter procedure Mildred Corral Work Phone: [facility] [place] Work Phone: Start: 07-29-2024 End: 07-29-2024 ambulatory Mildredjudd Corral Work Phone: [facility] Work Phone: Start: 07-15-2024 End: 07-15-2024 Orders Only Mildred Shayna [employer] Work Phone: [facility] Comment on above: Lung nodule, multipl e (Primary Dx) Start: 06-25-2024 End: 06-25-2024 ambulatory Moni X Orzech Facility:[facility] Start: 06-25-2024 End: 06-25-2024 Patient encounter procedure Moni X Balaji [facility] Start: 06-03-2024 End: 06-03-2024 Bamboo flowsheet Mildred Corral [employer] TE[employer] Work Phone: [facility] Start: 06-03-2024 End: 06-03-2024 Bamboo flowsheet Mildred Corral [employer] Work Phone: [facility] Start: 06-03-2024 End: 06-03-2024 Office outpatient visit 25 minutes Mildred Corral [employer] Work Phone: [facility] Comment on above: Primary hypertension (CMS/HCC) (Primary Dx); Centrilobular emphysema (CMS/HCC); BMI 32.0-32.9,adult; Type 2 diabetes mellitus without complication, without long-term current use of insulin (CMS/HCC); Cigarette nicotine dependence without complication; Rising PSA level Start: 06-03-2024 End: 06-03-2024 ambulatory MILDRED SHAYNA Not Available Start: 03-25-2024 End: 03-25-2024 Patient encounter procedure Mildred Shayna Work Phone: [facility] Work Phone: Start: 03-25-2024 End: 03-25-2024 ambulatory Mildred J Shayna Work Phone: [facility] Work Phone: Start: 12-26-2022 ambulatory TANKERMAN MILDRED CORRAL Facil ity:H1 Start: 12-02-2022 End: 12-02-2022 ambulatory SARTHAK STEPHENS . Facility: Start: 11-05-2022 End: 11-06-2022 ambulatory PATTI CORRAL Facility:H1 Start: 03-19-2022 End: 03-20-2022 ambulatory PATTI CORRAL Facility:H1 Start: 02-25-2022 Encounter for other preprocedural examination DR TACOS SU . [facility] Start: 02-25-2022 Encounter for preprocedural cardiovascular examination DR TACOS SU . [facility] Start: 02-25-2022 Encounter for preprocedural laboratory examination DR TACOS SU . [facility] Start: 02-24-2022 End: 02-24-2022 Admission to same day surgery center Tacos SU [facility] Start: 02-24-2022 End: 02-24-[address] TACOS SU . Facility:H1 Start: 02-21-2022 End: 02-22-[address] TACOS SU . Facility:H1 Start: 02-21-2022 End: 02-22-2022 Encounter for preprocedural laboratory examination DR TACOS SU . Facility:H1 Procedures Date Procedure Procedure Detail Performing Clinician Start: 06-02-2025 Hemoglobin glycosylated a1c Mildred Corral TIRE TESTER Work Phone: Start: 12-07-2024 MHPT PSA, DIAGNOSTIC Ge neric External Data Provider Start: 12-02-2024 Hemoglobin glycosylated a1c Mildred Shayna TIRE TESTER Work Phone: Start: 11-11-2024 CT CHEST WO CON Generic External Data Provider Start: 03-25-2024 Positron emission tomography with computed tomography Mildred Corral Work Phone: Start: 12-02-2022 Colonoscopy Mildred Angeline mejia TIRE TESTER Work Phone: Start: 03-19-2022 PSA screening PATTI CORRAL Comment on above: Performed By: #### P SAD #### [facility] [address] [place] [address] Dr. Gigi To Start: 02-24-2022 Extracorporeal shock wave lithotripsy of calculus of kidney Tacos SU Colonoscopy Tacos SU Plan of Treatment Date Care Activity Detail Author Start: 12-02-2027 Screening for malign ant neoplasm of colon [facility] Start: 06-03-2026 Glaucoma screening Diabetes: R etinopathy Screening [facility] Start: 12-03-2025 Hemoglobin A1c measurement Diabetes: Hemoglobin A1C [facility] Start: 06-02-2025 End: 06-02-2026 Cardiac stress study Procedure STRESS TEST TREADMILL Imaging Routine Primary hypertension Coronary artery disease involving tat[place]k coronary artery of [place] heart without angina pectoris Type 2 diabetes mellitus without complication, without long-term current use of insulin (HCC) Controlled type 2 diabetes mellitus without complication, without long-term current use of insulin ([facility]) Expected: 06/02/2025 (Approximate), Expires: 06/02/2026 [facility] Comment on above: Expected: 06/02/2025 (Approximate), Expires: 06/02/2026 Start: 06-02-2025 End: 06-02-2026 CBC W Auto Differential panel - Blood CBC and differential Lab Routine Cigarette nicotine dependence without complication Expected: 06/02/2025 (Approximate), Expires: 06/02/2026 [facility] Work Phone: Comment on above: Expected: 06/02/2025 (Approximate), Expires: 06/02/2026 Start: 06-02-2025 End: 06-02-2026 Comprehensive metabolic 2000 panel - Serum or Plasma Comprehensive metabolic panel Lab Routine Primary hypertension Coronary artery disease involving tat[place]k coronary artery of [place] heart without angina pectoris Type 2 diabetes mellitus without complication, without long-term current use of insulin (HCC) Hyperlipidemia, mixed Expected: 06/02/2025 (Approximate), Expires: 06/02/2026 [facility] Comment on above: Expected: 06/02/2025 (Approximate), Expires: 06/02/2026 Start: 06-02-2025 End: 06-02-2026 Lipid 1996 panel - Serum or Plasma Lipid panel Lab Routine Hyperlipidemia, mixed Expected: 06/02/2025 (Approximate), Expires: 06/02/2026 [facility] Comment on above: Expected: 06/02/2025 (Approximate), Expires: 06/02/2026 Start: 06-02-2025 End: 06-02-2026 Microalbumin/Creatinine panel in random Urine Microalbumin / creatinine, urine ratio Lab Routine Primary hypertension Type 2 diabetes mellitus without complication, without long-term current use of insulin (HCC) Expected: 06/02/2025 (Approximate), Expires: 06/02/2026 [facility] Comment on above: Expected: 06/02/2025 (Approximate), Expires: 06/02/2026 Start: 06-02-2025 End: 06-02-2026 PSA, total and free PSA, total and free Lab Routine Rising PSA level Expected: 06/02/2025 (Approximate), Expires: 06/02/2026 [facility] Comment on above: Expected: 06/02/2025 (Approximate), Expires: 06/02/2026 Start: 06-02-2025 End: 06-02-2026 Urinalysis complete panel - Urine Urinalysis with reflex microscopic (clean catch) Lab Routine Primary hypertension Type 2 diabetes mellitus without complication, without long-term current use of insulin (HCC) Cigarette nicotine dependence without complication Expected: 06/02/2025 (Approximate), Expires: 06/02/2026 [facility] Comment on above: Expected: 06/02/2025 (Approximate), Expires: 06/02/2026 Start: 06-02-2025 End: 06-02-2025 Patient encounter procedure [facility] Comment on above: Primary hypertension (Primary Dx); Coronary artery disease involving tat[place] coronary artery of [place] heart without angina pectoris ; Type 2 diabetes mellitus without complication, without long-term current use of insulin (HCC); Class 1 obesity due to excess calories with serious comorbidity in adult, unspecified BMI; Cigarette nicotine dependence without complication; Rising PSA level; Hyperlipidemia, mixed Start: 06-01-2025 Hemoglobin A1c measurement Diabetes: Hemoglobin A1C [facility] Start: 05-23-2025 Glaucoma screening Diabetes: R etinopathy Screening [facility] Start: 05-06-2025 Urine screening for protein Diabetes: Urine Protein Screening [facility] Start: 02-24-2025 End: 02-24-2025 Patient encounter procedure [facility] Comment on above: Coronary artery dise ase involving tatitlek coronary artery of [place] heart without angina pectoris (CMS/HCC) (Primary Dx); [...] Nuclear Medicine Routine Coronary artery disease involving tatitlek coronary artery of [place] heart without angina pectoris (CMS/HCC) Primary hypertension (CMS/HCC) Cigarette nicotine dependence without complication Hyperlipidemia, mixed (CMS/HCC) Family history of early CAD Expected: 12/02/2024 (Approximate), Expires: 12/02/2026 [facility] [employer] Work Phone: Comment on above: Expected: 12/02/2024 (Approximate), Expires: 12/02/2026 Start: 12-02-2024 End: 12-02-2024 Patient encounter procedure [facility] Comment on above: Multiple pulmonary n odules (Primary Dx); Type 2 diabetes mellitus without complications (CMS/HCC); Centrilobular emphysema (CMS/HCC); Coronary artery disease involving tat[place]k coronary artery of [place] heart without angina pectoris (CMS/HCC); Primary hypertension (CMS/HCC); Elevated PSA; Benign prostatic hyperplasia, unspecified whether lower urinary tract symptoms present; Cigarette nicotine dependence without complication; Hyperlipidemia, mixed (CMS/HCC); Class 1 obesity due to excess calories with serious comorbidity in adult, unspecified BMI Start: 11-06-2024 Hemoglobin A1c measurement Diabetes: Hemoglobin A1C [facility] Start: 07-29-2024 MR prostate wo con MR prostate wo co n [facility] Start: 07-29-2024 MR Prostate WO contrast [facility] Start: 07-15-2024 End: 07-15-2025 CT Chest for screening WO contrast Lung screening follow up CT chest wo IV contrast Imaging Routine Lung nodule, multiple Expected: 07/15/2024 (Approximate), Expires: 07/15/2025 [facility] [employer] Work Phone: Comment on above: Expected: 07/15/2024 (Approximate), Expires: 07/15/2025 Start: 06-03-2024 End: 06-03-2024 Patient encounter procedure 06/03/2024 8:40 AM EDT Office Visit [facility] [address] [place] [id number] Mildred Corral NP [address] [place] [address] Centrilobular emphysema (CMS/HCC) [facility] Comment on above: Centrilobular emphys susan (CMS/HCC) Start: 12-05-2023 Screening for malign ant neoplasm of colon [facility] Start: 1955 Screening for malign ant neoplasm of colon [facility] Immunizations Immunization Date Immunization Notes Care Provider Fa cility 01-24-2022 Pfizer Paredes Cap SARS-CoV-2 Vaccination Mildred Corral TIRE TESTER Work Phone: [facility] 01-24-2022 SARS-CoV-2, Unspecified Mildred Corral TIRE TESTER Work Phone: [facility] 03-20-2021 Pfizer Purple Cap SARS-CoV-2 Vaccination Mildred Corral TIRE TESTER Work Phone: [facility] 03-15-2021 SARS-CoV-2 (COVID-19 ) mRNA BNT-162b2 vacony SU [facility] 02-27-2021 SARS-CoV-2 (COVID-19 ) mRNA BNT-162b2 alejandro SU [facility] Payers Date Payer Category Payer [facility] [id number] 2024 Unknown [id number] 2024 Unknown [id number] 2024 Self-pay 2024 Medicare [id number] 2021 Private Health Insurance [id number] 1959 Private Health Insurance [id number] 1953 Unknown [id number] [id number]. 2.593 1953 Unknown [id number] 2.16.840.1.416717.3.579. 2.593 1953 Unknown [id number] 2.16.840.1.221542.3.579. 2.593 1953 Unknown [id number] 2.16.840.1.589327.3.579. 2.593 1953 Unknown [id number] 2.16.840.1.529061.3.579. 2.593 1953 Unknown [id number] 2.16.840.1.797131.3.579. 2.593 1953 Unknown [id number] 2.16.840.1.308250.3.579. 2.727 1953 Unknown [id number] 2.16.840.1.612904.3.579. 2.727 1953 Unknown [id number] 2.16.840.1.500267.3.579. 2.727 1953 Unknown [id number] 2.16.840.1.344629.3.579. 2.727 1953 Unknown [id number] 2.16.840.1.340643.3.579. 2.1259 1953 Unknown [id number] 2.16.840.1.767085.3.579. 2.1259 1953 Unknown [id number] 2.16.840.1.255873.3.579. 2.1259 1953 Unknown [id number] 2.16.840.1.662538.3.579. 2.1259 Unknown [id number] 2.16.840.1.246558.3.579. 2.531 Unknown [id number] 2.16.840.1.024190.3.579. 2.531 Social History Date Type Detail Facility Tobacco Unknown if ever smoked [facility] Comment on above: 1 10/10 ppd cigarettes Start: 06-03-2024 End: 06-02-2025 Sex Assigned At Male [facility] Start: 1955 Sex Assigned At Male [facility] Start: 12-04-2023 End: 06-03-2024 Tobacco smoking status NDIS Smokes tobacco daily [facility] History of [...] Smokin g Status Entered [facility] Functional Status Date Assessment Result Facility 06-25-2024 Functional Status N/A [facility] Clinical Notes 02-24-2022 to 06-02-2025 Mildred Corral NP - 06/02/2025 8:40 AM Jose Corral NP - 06/02/2025 6:22 AM MITCHELLRay Davilaclifton, TIRE TESTER - 06/02/2025 6:21 AM MITCHELLRay Daviladodieheydi, CARLA [...] compliance problems. There is no history of CAD/TX, heart failure or PVD. SUBJECTIVE: MEDICATIONS: Current [...] of the risks of continued smoking: stroke, TX, all forms of cancer, lung disease, and [...] of the risks of continued smoking: stroke, TX, all forms of cancer, lung disease, and [...] med: lisinopril documented in this encounter [facility] 04-22-2025 Telephone encounter Note Please let pt know that I did speak to [employer] on 04/17/25, they will not approve to combo stress test of treadmill and nuclear imaging, but they will approve a plain treadmill stress test, is he ok with doing this to start with? LA [facility] 04-22-2025 Miscellaneous Notes Please let pt know that I did speak to [employer] on 04/17/25, they will not approve to combo stress test of treadmill and nuclear imaging, but they will approve a plain treadmill stress test, is he ok with doing this to start with? LA documented in this encounter [facility] 02-24-2025 History of Present illness Narrative Associated [...] being taken. He does not see a ultra sound technician.Eye exam is current. Hypertension This is a [...] There is no history of kidney disease, CAD/TX, PVD or retinopathy. SUBJECTIVE: MEDICATIONS: Current Outpatient [...] History: Diagnosis Date CAD (coronary artery disease) ([facility] 12/04/2023 Cigarette nicotine dependence without complication 12/04/2023 History of adenomatous polyp of colon 12/04/2023 Hyperlipidemia, mixed ([facility]) 12/04/2023 Hypertension ([facility]) 12/04/2023 Kidney stone on left [...] of the risks of continued smoking: stroke, TX, all forms of cancer, lung disease, and [...] of the risks of continued smoking: stroke, TX, all forms of cancer, lung disease, and [...] for CAD documented in this encounter [facility] 12-16-2024 Note Patient Education Pulmonary Medicine Health [...] of Health and Human Services: www.smokefree.gov ??? [place] [employer]: www.freedomfromsmoking.org ??? [place] [employer] Association: www.heart.org Where to find more [...] provider. Document Revised: 09/27/2022 Document Reviewed: 09/27/2022 [employer] Patient Education ? 2023 [employer]. [facility] 12-02-2024 History of Present illness Narrative Associated [...] compliance problems. There is no history of CAD/TX, heart failure or PVD. Diabetes He presents [...] being taken. He does not see a ultra sound technician.Eye exam is current. SUBJECTIVE: MEDICATIONS: Current Outpatient [...] History: Diagnosis Date CAD (coronary artery disease) ([facility]) 12/04/2023 Cigarette nicotine dependence without complication 12/04/2023 History of adenomatous polyp of colon 12/04/2023 Hyperlipidemia, mixed ([facility]) 12/04/2023 Hypertension ([facility]) 12/04/2023 Kidney stone on left side 12/04/2023 Lumbar radiculopathy Osteoarthritis of both hips, unspecified osteoarthritis type 12/04/2023 Pancreatitis 12/04/2023 Tobacco user 12/04/2023 Type 2 diabetes mellitus ([facility]) 12/04/2023 History reviewed. No pertinent surgical history. [...] Addressed This Visit CAD (coronary artery disease) ([facility]) Calcifications noted on chest CT Current meds: asa, statin, yadira Strong family hx of CAD No active chest pain Will order stress test Relevant Orders Stress test with myocardial perfusion Type 2 diabetes mellitus without complications ([facility]) - Primary Check blood sugars [...] (Hb A1C) docked device (Completed) Hyperlipidemia, mixed ([facility]) On statin therapy Check labs yearly, and prn dose changes Relevant Orders Stress test with myocardial perfusion Cigarette nicotine dependence without complication The patient has been advised of the risks of continued smoking: stroke, TX, all forms of cancer, lung disease, and . Options for quitting smoking include: cold turkey, hypnosis, acupuncture, nicotine replacement meds (gum, lozenges, and patches), Buproprion, and Varenicline. At this time pt is encouraged to evaluate their goals for wanting to quit smoking, and reach out to provider when ready to start this process Relevant Orders Stress test with myocardial perfusion Primary hypertension ([facility]) Please check blood pressure daily [...] of the risks of continued smoking: stroke, TX, all forms of cancer, lung disease, and . Options for quitting smoking include: cold turkey, hypnosis, acupuncture, nicotine replacement meds (gum, lozenges, and patches), Buproprion, and Varenicline. At this time pt is encouraged to evaluate their goals for wanting to quit smoking, and reach out to provider when ready to start this process Associated Problem(s): Type 2 diabetes mellitus without complications ([facility]) Check blood sugars daily, notify [...] Current meds: flomax Associated Problem(s): Primary hypertension ([facility]) Please check blood pressure daily and record DASH diet Limit caffeine Take medication as directed Contact office if chest pain, pressure, dizziness, shortness of breath, swelling legs Recommend slow position changes Current med: lisinopril Associated Problem(s): CAD (coronary artery disease) ([facility]) Calcifications noted on chest CT Current meds: asa, statin, yadira Strong family hx of CAD No active chest pain Will order stress test Associated Problem(s): Centrilobular emphysema (CMS/HCC) No current daily inhalers for treatment Does continue with smoking Associated Problem(s): Multiple pulmonary nodules Follows with Dr Des Dewitt documented in this encounter [facility] 12-02-2024 Instructions Mildred Corral NP - 12/02/2024 8:40 AM EST Keep appt with Urology Will order stress test at [facility] No medication changes documented in this encounter [facility] 06-25-2024 Hospital Discharge instructions Patient Education 06/25/2024 [...] treatment? Where to find more information The [place] [employer]: www.cancer.org [place] [employer]: www.auanet.org Contact a health care [...] provider. Document Revised: 03/21/2022 Document Reviewed: 03/21/2022 [employer] Patient Education 2023 [employer]. 06/25/2024 13:09:32 Benign Prostatic Hyperplasia Benign Prostatic [...] urethra. Follow these instructions at home: Take rrqa-vas-gjyrxqd and prescription medicines only as told by [...] provider. Document Revised: 04/13/2022 Document Reviewed: 04/13/2022 [employer] Patient Education 2023 [employer] Follow Up Care 06/05/2024 09:20:17 With:SENG Carpio APRN, Moni Ferguson, KARISSA, URL Address: When: Unknown Comments:pending MRI [facility] 06-25-2024 Note Urology Office/Clini c Note HPI [...] with voice recognition artificial intelligence software, specifically [employer], [employer] and or [employer]. Substitutions may have occurred due to the [...] to proceed w/ MRI. [place] [facility] Pt knows that this [...] Urnls Dip Stick Auto w/o Microscopy POC 73850 2. BPH (benign prostatic hyperplasia) (N40.0: Benign [...] monitor Follow-up With When Contact Information SENG Crapio APRN, Moni Ferguson, FAM, URL Additional Instructions: [...] Father. Immunizations Vaccine (more content not included)... [facility] Comment on above: Result Comment: [...] Where to find more information ? The [place] [employer]: www.cancer.org ? [place] [employer]: www.auanet.org Contact a health care [...] of the rectum. (more content not included)... [facility] 06-03-2024 History of Present illness [...] of the risks of continued smoking: stroke, TX, all forms of cancer, lung disease, and [...] being taken. He does not see a ultra sound technician.Eye exam is current. SUBJECTIVE: MEDICATIONS: Current Outpatient [...] History: Diagnosis Date CAD (coronary artery disease) ([facility]) 12/04/2023 Cigarette nicotine dependence without complication 12/04/2023 History of adenomatous polyp of colon 12/04/2023 Hyperlipidemia, mixed ([facility]) 12/04/2023 Hypertension ([facility]) 12/04/2023 Kidney stone on left side 12/04/2023 Lumbar radiculopathy Osteoarthritis of both hips, unspecified osteoarthritis type 12/04/2023 Pancreatitis 12/04/2023 Tobacco user 12/04/2023 Type 2 diabetes mellitus ([facility]) 12/04/2023 History reviewed. No pertinent [...] Addressed This Visit Type 2 diabetes mellitus ([facility]) A1c in range UTD on eye exam No changes in medications Cigarette nicotine dependence without complication The patient has been advised of the risks of continued smoking: stroke, TX, all forms of cancer, lung disease, and [...] quit smoking documented in this encounter [facility] 02-24-2022 Hospital Discharge instructions Patient Education 02/24/2022 [...] Follow these instructions at home: Medicines Take vjis-brg-ejrmpvr and prescription medicines only as told by [...] 10/14/2008 Document Revised: 01/06/2020 Document Reviewed: 08/16/2017 [employer] Patient Education 2020 [employer]. 02/24/2022 16:14:46 [id number]-[id number] Utereroscopy,Lithotripsy, Stone Extraction, Stent Placement (Custom) [facility] [place], [place] Post-operative Instructions for Ureteroscopy, Laser Lithotripsy, [...] other reasons. If it is to remain skilled nursing, however, changes of the stent are required [...] arrange for your post-operative appointment (with XRAY) [phone] 02/24/2022 16:12:34 Post Op Patient Instructions - FT (Custom) (CUSTOM) Follow Up Care 02/24/2022 09:52:22 With:Tacos SU Address: [facility] [address] [place] [address]- Business (1) When: Unknown Comments:Office will call for next step [facility] 02-24-2022 Evaluation + Plan note Extrac rita from: Title:Post-anesthesia - General Author:Parker Ramirez DO Date:02/24/22 Plan Transfer/ Discharge: Condition stable. Extracted from: Title:Pre-anesthesia - Adult Author:Parker Fields Jr., DO Date:02/24/22 Plan [place] [employer] Anesthesiologists (ASA) physical status classification: Class III. Anesthetic Preoperative Plan Anesthesia: General. . Anesthetic plan, risks, benefits, and alternatives discussed with the patient and/or family. Patient verbalized understanding. Adverse reactions, complications, and alternatives discujssed. Consent signed and on chart.. [facility] information available [facility] Work Phone: Evaluation note* Diagnosis Lung nodule, multiple- Primary documented in this encounter [facility] HealthcareEvaluation note* Diagnosis Type 2 diabetes mellitus without complication, without long-term current use of insulin (CMS/HCC)- Primary History of adenomatous polyp of colon Personal history of colonic polyps Primary hypertension (CMS/HCC) Unspecified essential hypertension Coronary artery disease involving tatitlek coronary artery of [place] heart without angina pectoris (CMS/HCC) Cigarette nicotine [...] of insulin (CMS/HCC) documented in this encounter [facility] Healthcare[facility] note* Diagnosis Type 2 diabetes mellitus without complication, without long-term current use of insulin (CMS/HCC)- Primary History of adenomatous polyp of colon Personal history of colonic polyps Primary hypertension (CMS/HCC) Unspecified essential hypertension Coronary artery disease involving [place] coronary artery of [place] heart without angina pectoris (CMS/HCC) Cigarette nicotine [...] nodule, multiple- Primary documented in this encounter [facility] HealthcareEvaluation note* Diagnosis Primary hypertension (CMS/HCC)- [...] Unspecified essential hypertension Coronary artery disease involving [place] coronary artery of [place] heart without angina pectoris (CMS/HCC) Cigarette nicotine [...] Unspecified essential hypertension documented in this encounter [facility] HealthcareEvaluation note* Diagnosis Type 2 diabetes mellitus without complication, without long-term current use of insulin (CMS/HCC)- Primary History of adenomatous polyp of colon Personal history of colonic polyps Primary hypertension (CMS/HCC) Unspecified essential hypertension Coronary artery disease involving [place] coronary artery of [place] heart without angina pectoris (CMS/HCC) Cigarette nicotine [...] not elsewhere classified Coronary artery disease involving [place] coronary artery of [place] heart without angina pectoris (CMS/HCC) Primary hypertension [...] ischemic heart disease documented in this encounter [facility] HealthcareEvaluation note* Diagnosis Type 2 diabetes mellitus without complication, without long-term current use of insulin (CMS/HCC)- Primary History of adenomatous polyp of colon Personal history of colonic polyps Primary hypertension (CMS/HCC) Unspecified essential hypertension Coronary artery disease involving [place] coronary artery of [place] heart without angina pectoris (CMS/HCC) Cigarette nicotine [...] not elsewhere classified Coronary artery disease involving [place] coronary artery of [place] heart without angina pectoris (CMS/HCC) Primary hypertension [...] tract symptoms present documented in this encounter [facility] HealthcareEvaluation note* Diagnosis Type 2 diabetes mellitus without complication, without long-term current use of insulin- Primary History of adenomatous polyp of colon Personal history of colonic polyps Primary hypertension (CMS/HCC) Unspecified essential hypertension Coronary artery disease involving [place] coronary artery of [place] heart without angina pectoris (CMS/HCC) Cigarette nicotine [...] not elsewhere classified Coronary artery disease involving [place] coronary artery of [place] heart without angina pectoris (CMS/HCC) Primary hypertension [...] unspecified laterality- Primary documented in this encounter [facility] HealthcareEvaluation note* Diagnosis Type 2 diabetes mellitus without complication, without long-term current use of insulin- Primary History of adenomatous polyp of colon Personal history of colonic polyps Primary hypertension (CMS/HCC) Unspecified essential hypertension Coronary artery disease involving [place] coronary artery of [place] heart without angina pectoris (CMS/HCC) Cigarette nicotine [...] not elsewhere classified Coronary artery disease involving [place] coronary artery of [place] heart without angina pectoris (CMS/HCC) Primary hypertension [...] ischemic heart disease Coronary artery disease involving [place] coronary artery of [place] heart without angina pectoris (CMS/HCC)- Primary Primary [...] lower extremity pain documented in this encounter [facility] HealthcareEvaluation note* Diagnosis Type 2 diabetes mellitus without complication, without long-term current use of insulin (HCC)- Primary History of adenomatous polyp of colon Personal history of colonic polyps Primary hypertension Unspecified essential hypertension Coronary artery disease involving [place] coronary artery of [place] heart without angina pectoris Cigarette nicotine dependence [...] not elsewhere classified Coronary artery disease involving [place] coronary artery of [place] heart without angina pectoris Primary hypertension Unspecified [...] ischemic heart disease Coronary artery disease involving [place] coronary artery of [place] heart without angina pectoris- Primary Primary hypertension [...] Unspecified essential hypertension Coronary artery disease involving [place] coronary artery of [place] heart without angina pectoris Type 2 diabetes [...] Narrative No data available for this section [facility] No data available for this section [facility] [employer] Summary Purpose Family History No Family History [...] contrast Mildred Corral, CARLA [address] [place] [address] Referral ID Status Reason Start Date Expiration Date V isits Requested Visits Authorized [id number] Pending Review 07/15/2024 01/11/2025 1 1 Additional Source Comments (unrecognized sect ion and content) No Status Records FoundNo Status Records FoundNo Status Records FoundNo Status Records Found INFORMATION SOURCE (unrecogn ized section and content) DATE CREATED AUTHOR 12/23/2022 [facility] DATE CREATED AUTHOR AUTHOR'S ORGANIZ ATION 08/04/2024 [facility] DATE CREATED AUTHOR AUTHOR'S ORGANIZ ATION 12/17/2024 [facility] DATE CREATED AUTHOR AUTHOR'S ORGANIZ ATION 06/03/2025 [facility] [employer] Care Teams (unrecognized sec tion and content) Team Status: Active Member Role Status Dates Mildred Corral Primary Care Provider Active Team Status: Inactive Member Role Status Dates Mildred Corral Primary Care Provide r, Attending Provider Active Start: March 25, 2024 End: March 25, 2024 Pot Washer Relationship Specialty Start Date End Date Pavan Dailey MD [address] [place] [place] [address] PCP - General Family Medicine 11/06/23 Team Status: Inactive Member Role Status Dates Mildred Corral Primary Care Provider Active Sta rt: July 29, 2024 End: July 29, 2024 DANIEL Werner Attending Provider Active Start: July 29, 2024 End: July 29, 2024 Pot Washer Relationship Specialty Start Date End Date Pavan Dailey MD [address] [place] [address] PCP - General Family Medicine 11/06/23 Pot Washer Relationship Specialty Start Date End Date Pavan Dailey MD [address] [place] [phone] PCP - General Family Medicine 11/06/23 Pot Washer Relationship Specialty Start Date End Date Pavan Dailey MD [address] [place] [address] PCP - General Family Medicine 11/06/23 Pot Washer Relationship Specialty Start Date End Date Pavan Dailey MD [address] [place] [phone] PCP - General Family Medicine 11/06/23 Pot Washer Relationship Specialty Start Date End Date Pavan Dailey MD [address] [place] [address] PCP - General Family Medicine 11/06/23 Pot Washer Relationship Specialty Start Date End Date Pavan Dailey MD [address] [place] [address] PCP - General Family Medicine 11/06/23 Pot Washer Relationship Specialty Start Date End Date Pavan Dailey MD [address] [place] [address] PCP - General Family Medicine 11/06/23 Pot Washer Relationship Specialty Start Date End Date Pavan Dailey MD [address] [place] [address] PCP - General Family Medicine 11/06/23 Pot Washer Relationship Specialty Start Date End Date Pavan Dailey MD [address] [place] [phone] PCP - General Family Medicine 11/06/23 Pot Washer Relationship Specialty Start Date End Date Pavan Dailey MD [address] [place] [phone] PCP - General [facility] Medicine 11/06/23 Pot Washer Relationship Specialty Start Date End Date Pavan Dailey MD [address] [place] [address] PCP - General Family Medicine 11/06/23 Mildred Corral NP [address] [place] [address] PCP - [facility] 01/07/25 Pot Washer Relationship Specialty Start Date End Date Paavn Dailey MD [address] [place] [address] PCP - General Family Medicine 11/06/23 Mildred Corral NP [address] [place] [phone] PCP - [facility] 01/07/25 Pot Washer Relationship Specialty Start Date End Date Pavan Dailey MD [address] [place] [address] PCP - General Family Medicine 11/06/23 Mildred Corral NP [address] [place] [address] PCP [facility] 01/07/25 Pot Washer Relationship Specialty Start Date End Date Pavan Dailey MD [address] [place] [phone] PCP - General [facility] Medicine 11/06/23 Mildred Corral NP [address] [place] [phone] PCP [facility] 01/07/25 Pot Washer Relationship Specialty Start Date End Date Pavan Dailey MD [address] [place] [address] PCP - General [facility] 11/06/23 Mildred Corral NP [address] [place] [address] [facility] 01/07/25 Goals (unrecognized section and content) [...] BE BASED ON THE PRIMARY CLINICAL RECORDS. [employer] provides no warranty or guarantee of the accuracy or completeness of information in this document.
--- NOTE | 2025-07-17 11:24 | PC.NURSE ---
Nursing Note Cardiac Stress Test Reviewed: Medication, allergies and patient history reviewed. Stress Test: [x ] Patient tolerated stress test well. [ ] Patient unable to tolerate walking on treadmill. Switched to Lexiscan stress test. [x ] No chest pain noted per patient [ ] Chest pain that resolved prior to leaving stress lab. [ ] No dyspnea noted. [x ] Dyspnea that resolved prior to leaving stress lab. [ x] Patient left stress lab asymptomatic and hemodynamically stable. [ ] Patient taken to the Emergency Room due to non-resolving symptoms following stress test. [ x] Patient achieved target heart rate. [ ] Patient unable to achieve target heart rate. [ ] Aminophylline administered as reversal agent to Lexiscan (Regadenoson). [ ] Nitro administered. Nursing Comments:Pt had Cardiolite test done. Tolerated well. No CP noted but had some SOB which he states is normal that resolved within 3 minutes of rest. Pt ambulated to cafeteria for breakfast prior to second set of images.
--- NOTE | 2025-07-18 10:47 | PM.STRESS ---
Stress Test Stress Test Requesting physician: Mildred Corral Procedure: Treadmill nuclear stress test General Information: Reason for Stress Test: [Abnormal regular stress test] Cardiac History and Risk Factors: [Hypertension, hyperlipidemia, diabetes mellitus] Resting 12 - Lead Electrocardiogram: Twelve-lead EKG showed normal sinus rhythm heart rate 66 bpm, normal EKG. Resting blood pressure 136/68 mmHg. Patient was exercised according to standard Sharif protocol and was able to finish 3 minutes and 57 seconds consistent with stage II achieving max METS of 4.6 and peak heart rate of 148 bpm consistent with 100% of age-predicted maximum heart rate, peak blood pressure 174/78. Exercise was terminated secondary to achievement of target heart rate. Patient was short of breath but he did not experience any chest, neck, jaw, or arm discomfort throughout the test. The patient was monitored for 8 minutes into recovery phase with heart rate back to 93 bpm and blood pressure to 144/70 mmHg. Showed [address] depression in the inferior and lateral leads at peak exercise resolved quickly in recovery Stress Test: Protocol: [Close] Exercise Capacity: [Reduced] Blood Pressure Response: [Normal resting blood pressure with normal response] Rhythm: [No arrhythmias] ST - Response: [ST depression] Patient Response: [No symptoms] Interpretation: Maximal stress test achieving 100% of age-predicted maximum heart rate Reduced exercise tolerance Appropriate heart rate and blood pressure response to exercise The stress test is positive for exercise-induced ischemic EKG changes but no chest pain or arrhythmia. Nuclear myocardial perfusion images result is reported separately Mariza Valdivia MD, FACC
== END 2025-07-17 10:02 | disposition home or self-care (01) ==
LOC: NM 10:01
PROVIDERS: PCP Nurse Practitioner; Visit Provider Nurse Practitioner
DX: I25.10 Atherosclerotic heart disease of native coronary artery without angina pectoris (principal); I10 Essential (primary) hypertension; E11.9 Type 2 diabetes mellitus without complications; Z79.4 Long term (current) use of insulin; R94.30 Abnormal result of cardiovascular function study, unspecified
CPT/HCPCS: 78452; 93017; A9500